=== PATIENT | female | born 1950 | race Caucasian/White ===

== ENCOUNTER 2023-02-13 22:16 | Inpatient (IN) | payer MEDICARE, SELFPAY ==
--- NOTE | ~2023-02-13 | XR_ITS ---
EXAMINATION: PELVIS AND LEFT HIP, LEFT KNEE CLINICAL INFORMATION: Fall with question of fracture COMPARISON: None available. TECHNIQUE: Single view pelvis with 2 additional views left hip, 4 views left knee FINDINGS: The pelvis and hips appear unremarkable. No fractures are seen. Tricompartmental degenerative changes are present in the knee most marked in the medial compartment where there is mild joint space narrowing, some sclerosis and some osteophytes. No joint effusion or fractures. XR/XR knee LT 3V IMPRESSION: No evidence of a traumatic osseous injury. Degenerative changes in the knee.
--- NOTE | ~2023-02-13 | XR_ITS ---
EXAMINATION: PELVIS AND LEFT HIP, LEFT KNEE CLINICAL INFORMATION: Fall with question of fracture COMPARISON: None available. TECHNIQUE: Single view pelvis with 2 additional views left hip, 4 views left knee FINDINGS: The pelvis and hips appear unremarkable. No fractures are seen. Tricompartmental degenerative changes are present in the knee most marked in the medial compartment where there is mild joint space narrowing, some sclerosis and some osteophytes. No joint effusion or fractures. XR/XR hip LT min 2V IMPRESSION: No evidence of a traumatic osseous injury. Degenerative changes in the knee.
--- NOTE | ~2023-02-13 | CT_ITS ---
EXAMINATION: CT HIP WITHOUT CONTRAST, LEFT CLINICAL INFORMATION: Unable to bear weight COMPARISON: Radiographs from 02/13/2023 TECHNIQUE: Multidetector CT imaging of the left hip was performed without the use of intravenous contrast. Coronal and sagittal reformats created on an independent workstation were reviewed. This CT examination was performed using dose optimization techniques as appropriate, variously including the following: *Automated exposure control *Adjustment of mA and/or kV according to patient size (this includes techniques or standardized protocols for targeted exams where dose is matched to indication/reason for exam; i.e. extremities or head) *Use of iterative reconstruction technique DLP: 364 mGy-cm FINDINGS: Acute nondisplaced fracture of the femoral neck evident involving the anterosuperior cortex. The inferior extent of the fracture not clearly evident extending through the inferior aspect of the femoral neck. No additional fractures. Imaged osseous pelvis intact. Imaged viscera are unremarkable with exception of a 2.1 cm left ovarian simple appearing cyst. No follow-up imaging recommended. CT/CT hip LT wo IV con IMPRESSION: Acute nondisplaced, possibly unicortical fracture of the left femoral neck. See wood images.
--- NOTE | ~2023-02-13 | FL_ITS ---
EXAMINATION: XR FLUOROSCOPY WITH IMAGES CLINICAL INFORMATION: Left femoral neck fracture COMPARISON: Previous x-ray 02/13/[address] 02/14/2023 TECHNIQUE: Fluoroscopy Supervised By: Dr. Clif Flores. Fluoroscopy Time: 0.7 minutes. Cumulative Dose: 28 mGy. DAP: 0.5 mGycm2. Images: 2. FINDINGS: Images demonstrate 3 screws transfixing the nondisplaced left femoral neck fracture. FL/FL guidance in OR IMPRESSION: Fluoroscopic guidance for ORIF of left femoral neck fracture.
[2023-02-13 22:24] VITALS: BP 212/82; PULSE 73; RESP 20; TEMP 36.6; O2SAT 97; BMI 33.1
[2023-02-13 22:47] VITALS: BP 101/81; PULSE 73; RESP 17; TEMP 36.6; O2SAT 97
--- NOTE | 2023-02-13 22:56 | MHC.EDTECH ---
pt has a purewick in place
[2023-02-13 23:04] VITALS: BP 172/70; PULSE 73; RESP 18; O2SAT 100
[2023-02-13] MEDS: fentaNYL citrate/PF 100 MCG/2 ML VIAL 50 MCG IVPUSH (23:09)
--- NOTE | 2023-02-13 23:10 | ED.LOWEXIN ---
HPI - Extremity Injury (Lower) General Chief Complaint: Extremity Injury, Lower Stated Complaint: fall Time Seen by Provider: 02/13/23 22:24 Source: patient Limitations: no limitations History of Present Illness HPI Narrative: Patient comes to the emergency room via ambulance from home. Patient lives in elderly housing, patient states that the floor in her kitchen is very slippery, patient slipped, fell likely landing on the left side. Patient did not hit her head or lost consciousness. Patient denies being on blood thinners. Patient states that she has intense left hip pain. Also, complaining of left-sided knee pain. Per EMS, they gave her 100 mcg of fentanyl. Related Data Allergies Allergy/AdvReac Type Severity Reaction Status Date / Time ondansetron Allergy Unknown ANAPHYLAXIS Verified 02/13/23 22:28 [From ZOFRAN ( HYDROCHLORIDE)] Review of Systems Review of Systems: Constitutional : No Weight loss, No Fever, No Chills, No Night Sweats, No Fatigue, No Malaise ENT/Mouth : No Hearing loss, No Ear Pain, No Nasal Congestion, No Sinus Pain, No Hoarseness, No sore throat, No Rhinorrhea, No Swallowing Difficulty Eyes: No Eye Pain, No Swelling, No Redness, No Foreign Body, No Discharge, No Vision Changes Cardiovascular : No Chest Pain, No SOB, No Dyspnea on Exertion, No Orthopnea, No Edema, No Palpitations Respiratory : No Cough, No Sputum, No Wheezing, No Smoke Exposure, No Dyspnea Gastrointestinal : No Nausea, No Vomiting, No Diarrhea, No Constipation, No abdominal Pain, No Hematochezia, No Melena Genitourinary : no irregular bleeding, No Dysuria, No Urinary Frequency, No Hematuria, No Urinary Incontinence, No Urgency, No Flank Pain, No Urinary Flow Changes, No Hesitancy Musculoskeletal : Complaining of left hip pain and left knee pain, No Myalgias, No Joint Swelling Skin : No Skin Lesions, No rash Neuro : No Weakness, No Numbness, No Paresthesias, No Loss of Consciousness, No Dizziness, No Headache Psych : No Anxiety/Panic, No Depression, No SI/HI/AH/VH, No Social Issues, Heme/Lymph: No Bruising, No Bleeding,No Lymphadenopathy Endocrine : No Polyuria, No Polydipsia, No Temperature Intolerance PMFSH Past Medical History Medical History Breast cancer Fibromyalgia Social History Social History Advance Directives: No Advance Directives Information Provided: No Physical Exam Vital Signs: Vital Signs: Last Vital Signs Temp 97.8 F 02/13/23 22:47 Pulse 71 02/14/23 00:49 Resp 16 02/14/23 00:49 BP 178/61 H 02/14/23 00:49 Pulse Ox 97 02/14/23 00:49 O2 Del Method Nasal Cannula 02/14/23 00:49 O2 Flow Rate 3 02/14/23 00:49 BMI result Body Mass Index 33.1 Const: Other: Appearance: Alert. Oriented X3. No acute distress. Eyes: Pupils equal, round and reactive to light. ENT: Pharynx normal. Neck: Normal inspection. Neck supple. No lymph nodes noted. No crepitus CVS: Normal heart rate and rhythm. Pulses normal. Normal S1 and S2 Respiratory: No respiratory distress. Breath sounds normal. No Wheezing. No rales Abdomen: Soft and nontender. No rigidity. No distention. Skin: Skin warm and dry. Normal skin color. Normal skin turgor. Extremities: Patient is unable to flex the hip on the left side, unable to flex the left knee either. Neuro: Oriented X 3. No motor deficit. No sensory deficit. Moving all extremities. No slurred speech. CN 2 through 12 grossly intact Psych: calm, cooperative, normal affect Course Course Course Narrative: -patient is a 50 mcg of fentanyl in the emergency room. Prior to arrival she received 100 mcg per EMS. Now total of 150 mcg. -labs and imaging pending -patient was given 1 dose of Dilaudid, Compazine Medications Administered Discontinued Medications Generic Name Dose Route Start Last Admin Trade Name Jeff PRN Reason Stop Dose Admin Fentanyl 50 mcg 02/13/23 22:56 02/13/23 23:09 Fentanyl Citrate/Pf 100 Mcg/2 Ml Vial IVPUSH 02/13/23 22:57 50 mcg ONCE ONE Administration Protocol Hydromorphone HCl 1 mg 02/14/23 00:08 02/14/23 00:21 Hydromorphone Hcl 1 Mg/Ml Syringe IVPUSH 02/14/23 00:09 1 mg ONCE ONE Administration Protocol Sodium Chloride 1,000 mls @ 999 mls/hr 02/14/23 00:12 02/14/23 00:18 Ns IVCONT 02/14/23 01:12 999 mls/hr .Q1H1M ONE Administration Prochlorperazine Edisylate 10 mg 02/14/23 00:12 02/14/23 00:16 Prochlorperazine Edisylate 10 Mg/2 Ml Vial IVPUSH 02/14/23 00:13 10 mg ONCE ONE Administration Medical Decision Making Medical Decision Making MDM Narrative: -my interpretation of his x-rays, questionable hip fracture -ambulation trial: Patient was able to get out of bed with 2 person assist. Patient was not able to walk due to pain on the left hip. -it is possible that patient may have an occult fracture versus an over stretched the given/muscle. CT scan of the hip/pelvis pending -patient lives alone in elderly housing. Patient cannot walk, patient will stay overnight for PT, case management in the morning -CT scan pending, signed and given to Dr. Mcintosh Lab Data 02/13/23 23:23 02/13/23 23:23 Labs: Lab Results 02/13/23 02/13/23 Range/Units 23:23 23:23 WBC 10.0 (4.8-10.8) X10*3/uL RBC 4.54 (4.20-5.50) X10*6/uL Hgb 13.0 (12.0-16.0) g/dl Hct 38.9 (37.0-47.0) % MCV 85.7 (80.0-98.0) fL MCH 28.6 (27.0-33.0) pg MCHC 33.4 (31.0-35.0) g/dl RDW 14.1 (11.0-16.0) % Plt Count 167 (160-400) X10*3/uL MPV 9.8 (9.4-12.3) fL Immature Gran % (Auto) 0.6 H (0.0-0.4) % Neut % (Auto) 71.7 (45-73) % Lymph % (Auto) 18.8 L (20-40) % Harper % (Auto) 7.0 (2-11) % Eos % (Auto) 1.4 (0-4) % Baso % (Auto) 0.5 (0-2) % Lymph # (Auto) 1.9 (1.2-4.9) X10*3/uL Harper # (Auto) 0.7 (0.1-1.2) X10*3/uL Eos # (Auto) 0.1 (0.0-0.4) X10*3/uL Baso # (Auto) 0.1 (0.0-0.2) X10*3/uL Abs Immat Gran (auto) 0.06 H (0.00-0.03) X10*3/uL Absolute Neuts (auto) 7.1 (2.0-8.3) x10*3/uL Absolute Nucleated RBC 0.000 (0.0-0.012) X10*3/uL Nucleated RBC % (auto) 0.0 (0.0-0.2) /100WBC Sodium 138 (135-145) mmol/L Potassium 4.6 (3.3-5.1) mmol/L Chloride 108 (96-108) mmol/L Carbon Dioxide 23 (22-29) mmol/L Anion Gap 12 (12-20) BUN 26 H (9-16) mg/dL Creatinine 1.02 (0.5-1.4) mg/dL Estim Creat Clear Calc 54.1 Estimated GFR 53 Random Glucose 104 (60-115) mg/dL Calcium 9.0 (8.4-10.2) mg/dL Total Bilirubin 0.2 (0.0-1.0) mg/dL Direct Bilirubin < 0.2 (0.0-0.5) mg/dL AST 20 (5-31) U/L ALT 21 (0-31) U/L Alkaline Phosphatase 81 (39-117) U/L Total Protein 5.2 L (6.5-8.0) g/dL Albumin 3.3 L (3.5-5.0) g/dL Discharge Plan Discharge Clinical Impression: Acute pain of left hip Patient Disposition: Still a Patient
--- NOTE | 2023-02-13 23:11 | ECG_ITS ---
Test Reason : fall Blood Pressure : / mmHG Vent. Rate : 071 BPM Atrial Rate : 071 BPM P-R Int : 194 ms QRS Dur : 084 ms QT Int : 402 ms P-R-T Axes : 039 -05 034 degrees QTc Int : 436 ms Normal sinus rhythm Normal ECG No previous ECGs available Referred By: Lo Mendez Electronically Signed By:José Hogue
[2023-02-13 23:29] LABS: Basophils Absolute Auto 0.1 X10*3/uL (0.0-0.2); Basophils Percent Auto 0.5 % (0-2); Eosinophils Absolute Auto 0.1 X10*3/uL (0.0-0.4); Eosinophils Percent Auto 1.4 % (0-4); Hematocrit 38.9 % (37.0-47.0); Imm Gran Abs Auto 0.06 X10*3/uL (0.00-0.03); Imm Gran Pct Auto 0.6 % (0.0-0.4); Lymphocytes Absolute Auto 1.9 X10*3/uL (1.2-4.9); Lymphocytes Percent Auto 18.8 % (20-40); MANUAL DIFF FLAG NO; Mean Corpuscular HGB Conc 33.4 g/dl (31.0-35.0); Mean Corpuscular Hemoglobin 28.6 pg (27.0-33.0); Mean Corpuscular Volume 85.7 fL (80.0-98.0); Mean Platelet Volume 9.8 fL (9.4-12.3); Monocytes Absolute Auto 0.7 X10*3/uL (0.1-1.2); Neutrophils Absolute Auto 7.1 x10*3/uL (2.0-8.3); Neutrophils Percent Auto 71.7 % (45-73); Platelet Count 167 X10*3/uL (160-400); Red Blood Count 4.54 X10*6/uL (4.20-5.50); Red Cell Distribution Width 14.1 % (11.0-16.0)
[2023-02-13 23:56] LABS: Alanine Aminotransferase 21 U/L (0-31); Albumin Level 3.3 g/dL (3.5-5.0); Alkaline Phosphatase 81 U/L (39-117); Anion Gap 12 (12-20); Aspartate Amino Transferase 20 U/L (5-31); Bilirubin Direct < 0.2 mg/dL (0.0-0.5); Bilirubin Total 0.2 mg/dL (0.0-1.0); Blood Urea Nitrogen 26 mg/dL (9-16); Carbon Dioxide 23 mmol/L (22-29); Chloride 108 mmol/L (96-108); Creatinine Clr Calc Pharmacy 54.1; Estimated Glomerular Filt Rate 53; Glucose Random 104 mg/dL (60-115); Potassium 4.6 mmol/L (3.3-5.1); Sodium 138 mmol/L (135-145); Total Protein 5.2 g/dL (6.5-8.0)
[2023-02-14] VITALS (14 sets, daily range): BP systolic 109–192; BP diastolic 39–90; PULSE 66–87; RESP 14–20; TEMP 36–36.9; O2SAT 93–100
[2023-02-14] MEDS: Prochlorperazine Edisylate 10 MG/2 ML VIAL IVPUSH (00:16)
[2023-02-14] MEDS: 0.9 % Sodium Chloride 1,000 ML 999 ML IVCONT (00:18)
[2023-02-14] MEDS: HYDROmorphone HCl 1 MG/ML SYRINGE IVPUSH (00:21)
--- NOTE | 2023-02-14 01:44 | PC.NURSE ---
Attempted to walk pt in department. Pt able to stand a take a couple steps near bed with pain noted. Place back into bed. Plan for CT and PT/case management in AM.
--- NOTE | 2023-02-14 03:21 | ECG_ITS ---
Test Reason : hip fx, preop Blood Pressure : / mmHG Vent. Rate : 065 BPM Atrial Rate : 065 BPM P-R Int : 174 ms QRS Dur : 082 ms QT Int : 422 ms P-R-T Axes : -08 -09 022 degrees QTc Int : 438 ms Normal sinus rhythm Normal ECG When compared with ECG of 13-FEB-2023 23:24, No significant change was found Referred By: Kennedy Mcintosh Electronically Signed By:José Hogue
--- NOTE | 2023-02-14 03:47 | PM.IMHP ---
History of Present Illness Date of Service: 02/14/23 Chief Complaint: fall, pain 72-year-old female with past medical history of breast cancer, fibromyalgia, presents to the hospital with complaints of mechanical fall in developing severe pain in her hips which prompted her to come to the hospital. Patient reports that she was working in the kitchen, when she fell and hurt her hip, she denies any dizziness, no chest pain, no palpitations, no loss of consciousness, no head injury, reports that once she fell she has severe pain, around her hips, she was complaining of left-sided severe hip pain. She denies any chest pain, no abdominal pain, no urinary symptoms, no lower extremity edema. Initial x-ray of the hip showed no evidence of a traumatic osseous injury, but due to severe pain and inability to move her legs without causing severe pain patient had a CT scan of the hip which showed acute nondisplaced unicortical fracture of the left femoral neck, orthopedic surgery was consulted and patient is scheduled for repair this a.m. Review of Systems Review of Systems: Yes all other systems are reviewed and are negative [facility] Medical History (Updated 02/14/23 @ 06:52 by Brooke Miller MD) Breast cancer Fibromyalgia Hypothyroidism Social History Patient Tobacco Use Status: Never used Tobacco Advance Directives: No Advance Directives Information Provided: No Nutrition Risks: No Nutritional Risk Meds Allergies Allergy/AdvReac Type Severity Reaction Status Date / Time ondansetron Allergy Unknown ANAPHYLAXIS Verified 02/13/23 22:28 [From ZOFRAN ( HYDROCHLORIDE)] Active Medications: Current Medications Acetaminophen (Acetaminophen 325 Mg Tablet) 650 mg PO Q6H PRN PRN Reason: Pain, Mild (Pain Scale 1-3) Docusate Sodium (Docusate Sodium 100 Mg Capsule) 100 mg PO DAILY PRN PRN Reason: Constipation Morphine Sulfate (Morphine Sulfate 4 Mg/Ml Cartridge) 4 mg IVPUSH Q4H PRN; Protocol PRN Reason: Pain, Severe (Pain Scale 7-10) Prochlorperazine Edisylate (Prochlorperazine Edisylate 10 Mg/2 Ml Vial) 5 mg IVPUSH Q4H PRN PRN Reason: Nausea and Vomiting Sodium Chloride (0.9 % Sodium Chloride Flush 3 Ml Syringe) 3 ml IVFLUSH QSHIFT [facility] Home Medications Medication Instructions Recorded Confirmed Last Taken Type Ca 600 mg-D3 20 mcg-mag oxide 50 1 tab PO DAILY 02/14/23 02/14/23 Unknown History zr-Tc-epmzyy-manganese-boron tablet (Calcium 600-D3 Plus (mag-zinc)) aspirin 81 mg tablet 81 mg PO DAILY 02/14/23 02/14/23 Unknown History bupropion HCl 300 mg 24 hr tablet, 300 mg PO DAILY 02/14/23 02/14/23 Unknown History extended release clonazepam 0.5 mg tablet 0.5 mg PO TID PRN Anxiety 02/14/23 02/14/23 Unknown History docusate sodium 50 mg capsule 50 mg PO DAILY 02/14/23 02/14/23 Unknown History ergocalciferol (vitamin D2) 1,250 1,250 mcg PO QMONTH 02/14/23 02/14/23 Unknown History mcg (50,000 unit) capsule esomeprazole magnesium 40 mg 40 mg PO DAILY 02/14/23 02/14/23 Unknown History capsule,delayed release (Nexium) levothyroxine 112 mcg tablet 112 mcg PO DAILY 02/14/23 02/14/23 Unknown History magnesium 100 mg capsule 100 mg PO DAILY 02/14/23 02/14/23 Unknown History mirabegron 50 mg tablet,extended 50 mg PO DAILY 02/14/23 02/14/23 Unknown History release 24 hr (Myrbetriq) psyllium husk 0.4 gram capsule 0.4 g PO DAILY 02/14/23 02/14/23 Unknown History (Metamucil) raloxifene 60 mg tablet 60 mg PO DAILY 02/14/23 02/14/23 Unknown History trazodone 100 mg tablet 100 mg PO BEDTIME 02/14/23 02/14/23 Unknown History Physical Exam Vital Signs and Narrative: Vital Signs: Last Vital Signs Temp 97.4 F 02/14/23 02:14 Pulse 87 02/14/23 02:14 Resp 16 02/14/23 02:14 BP 162/51 H 02/14/23 02:14 Pulse Ox 97 02/14/23 02:14 O2 Del Method Room Air 02/14/23 02:14 O2 Flow Rate 3 02/14/23 00:49 BMI result Body Mass Index 33.1 Const: General: cooperative and no acute distress Orientation/consciousness: patient oriented x3 Eyes: General: appearance normal, both eyes and all related structures Resp: Effort & Inspection: normal respiratory effort Auscultation: clear to auscultation bilaterally Cardio: Rate: regular rate Rhythm: regular rhythm GI: Palpation (GI): Soft to palpation Auscultation: normal bowel sounds Skin: General skin exam: no rashes or lesions noted Neuro: General: patient oriented x3 Cognition (Neuro): normal cognition Extrem: Other: limited range of motion, inability to flex hip or any of the left side General: Yes normal to inspection and Yes no pedal edema Results Labs 02/13/23 23:23 02/13/23 23:23 Labs: Laboratory Results - last 24 hr 02/13/23 02/13/23 23:23 23:23 MCV 85.7 MCH 28.6 MCHC 33.4 RDW 14.1 Plt Count 167 MPV 9.8 Immature Gran % (Auto) 0.6 H Neut % (Auto) 71.7 Lymph % (Auto) 18.8 L [place] % (Auto) 7.0 Eos % (Auto) 1.4 Baso % (Auto) 0.5 Lymph # (Auto) 1.9 [place] # (Auto) 0.7 Eos # (Auto) 0.1 Baso # (Auto) 0.1 Abs Immat Gran (auto) 0.06 H Absolute Neuts (auto) 7.1 Absolute Nucleated RBC 0.000 Nucleated RBC % (auto) 0.0 Anion Gap 12 Estim Creat Clear Calc 54.1 Estimated GFR 53 Random Glucose 104 Calcium 9.0 Total Bilirubin 0.2 Direct Bilirubin < 0.2 AST 20 ALT 21 Alkaline Phosphatase 81 Total Protein 5.2 L Albumin 3.3 L Imaging Radiologist's Impressions: Impressions Hip X-Ray 02/14/23 00:00 IMPRESSION: No evidence of a traumatic osseous injury. Degenerative changes in the knee. Knee X-Ray 02/14/23 00:00 IMPRESSION: No evidence of a traumatic osseous injury. Degenerative changes in the knee. Hip CT 02/14/23 01:50 IMPRESSION: Acute nondisplaced, possibly unicortical fracture of the left femoral neck. See wood images. Assessment and Plan (1) Closed fracture of neck of left femur: Qualifiers: Encounter type: initial encounter Qualified Code(s): S72.002A - Fracture of unspecified part of neck of left femur, initial encounter for closed fracture Status: Acute Plan 72-year-old female with past medical history of fibromyalgia, history of hypothyroidism, comes into the hospital with complaints of a fall found to have hip fracture # closed fracture of neck of left femur - plan for repair this afternoon after mechanical fall - pain control - PT OT after surgery # history of fibromyalgia - continue bupropion # hypothyroidism - continue levothyroxine DVT prophylaxis: SCD in anticipation of surgical intervention given patient's need for surgical repair hip fracture patient will require a minimum 2 nights inpatient hospital stay for further management and monitoring Time Spent With Patient Time: Total time managing care of this patient today ____ minutes. Quality Stroke Does the patient have a stroke diagnosis?: No VTE Prior VTE?: No VTE Risk Level:: Surgical - very high VTE Device Contraindication: N/A - Device Ordered VTE Drug Contraindication: Treatment Not Indicated
[2023-02-14 03:57] LABS: Appearance Urine Cloudy; Color Urine Yellow; Glucose Urine UA Negative (Negative); Leukocyte Esterase Urine Negative (Negative); Nitrite Urine Negative (Negative); PH 7.5 (5.0-9.0); Specific Gravity - Urine 1.015 (1.005-1.025); Urine Blood Negative (Negative); Urine Ketones Negative (Negative); Urine Protein Negative (Neg-Trace)
[2023-02-14 04:01] LABS: INTERNATIONAL NORM RATIO 0.9 (0.9-1.1); Prothrombin Time 10.4 SEC (10.0-13.1)
[2023-02-14 04:03] LABS: Partial Thromboplastin Time 26.5 SEC (26.0-36.4)
[2023-02-14 04:16] LABS: Alanine Aminotransferase 247 U/L (0-31); Albumin Level 3.3 g/dL (3.5-5.0); Alkaline Phosphatase 95 U/L (39-117); Anion Gap 12 (12-20); Aspartate Amino Transferase 435 U/L (5-31); Bilirubin Total 0.8 mg/dL (0.0-1.0); Blood Urea Nitrogen 24 mg/dL (9-16); Calcium 8.7 mg/dL (8.4-10.2); Carbon Dioxide 22 mmol/L (22-29); Chloride 109 mmol/L (96-108); Creatinine Clr Calc Pharmacy 54.1; Estimated Glomerular Filt Rate 53; Glucose Random 128 mg/dL (60-115); Potassium 4.5 mmol/L (3.3-5.1); Sodium 138 mmol/L (135-145); Total Protein 5.2 g/dL (6.5-8.0)
--- NOTE | 2023-02-14 05:41 | MHC.EDTECH ---
canister was replaced her output of urine was 500cc
--- NOTE | 2023-02-14 07:28 | PHA.MEDREC ---
Pharmacy Consult ? Medication Reconciliation Pharmacy has reviewed the medication reconciliation completed by Radha. There are no remarkable issue for provider's attention. Anika Thomas, AbhilashD
[2023-02-14] MEDS: Prochlorperazine Edisylate 10 MG/2 ML VIAL 5 MG IVPUSH ×2 (09:07→17:35)
[2023-02-14] MEDS: 0.9 % Sodium Chloride Flush 3 ML SYRINGE IVFLUSH ×3 (09:08→20:49)
--- NOTE | 2023-02-14 12:21 | PC.NURSE ---
nurse to nurse report to S3 Gauri FERNANDO
--- NOTE | 2023-02-14 12:31 | MHC.CM.PN ---
Met with patient and daughter, Hector. Patient lives alone. Currently does not have a PCP. Patient had a PCP but didn't get care for that provider. Still trying to find a PCP. HCP completed, signed and witnessed. Original given to patient. Copy placed in chart. IMM explained and signed. Patient aware she will be going to the OR later today. Patient and family anticipate rehab will be needed. Acute rehab is patient and family's preference with [facility] being 1st choice. Referral made to all 3 local acute rehabs. Continue to monitor for d/c needs.
--- NOTE | 2023-02-14 12:53 | PM.CNOR ---
History of Present Illness HPI Consult date: 02/14/23 <Tawanna Goyal PA-C - Last Filed: 02/14/23 14:39> Chief complaint: hip fx <Tawanna Goyal PA-C Last Filed: 02/14/23 14:39> Narrative: 72-year-old female with past medical history of breast cancer, fibromyalgia, presents to the hospital with complaints? of Left hip pain after falling at home. Patient reports that she was working in the kitchen and she slipped, causing her legs to spread out and she fell, landing on her left side. She was transported to the ED for further evaluation. Initial x-ray of the hip showed no evidence of a traumatic osseous injury,? but due to severe pain and inability to move her legs without causing severe pain patient had a CT scan of the hip which showed acute nondisplaced unicortical fracture of the left femoral neck Orthopedics was consulted for further recommendations <Tawanna Goyal PA-C Last Filed: 02/14/23 14:39> Review of Systems Review of Systems: per hpi <Tawanna Goyal PA-C Last Filed: 02/14/23 14:39> PMFSH Past Medical History Medical History: Medical History (Updated 02/14/23 @ 06:52 by Brooke Miller MD) Breast cancer Fibromyalgia Hypothyroidism <Tawanna Goyal PA-C Last Filed: 02/14/23 14:39> Social History Social History: Social History Household Members: None Housing Other:: alf Patient Tobacco Use Status: Never used Tobacco service: No Current occupational status: retired <Tawanna Goyal PA-C Last Filed: 02/14/23 14:39> Meds Allergies/Adverse reactions: Allergies Allergy/AdvReac Type Severity Reaction Status Date / Time ondansetron Allergy Unknown ANAPHYLAXIS Verified 02/13/23 22:28 [From ZOFRAN ( HYDROCHLORIDE)] <Tawanna Goyal PA-C Last Filed: 02/14/23 14:39> Active Medications: Current Medications Acetaminophen (Acetaminophen 325 Mg Tablet) 650 mg PO Q6H PRN PRN Reason: Pain, Mild (Pain Scale 1-3) Clonazepam (Clonazepam 0.5 Mg Tablet) 0.5 mg PO TID PRN PRN Reason: Anxiety Docusate Sodium (Docusate Sodium 100 Mg Capsule) 100 mg PO DAILY PRN PRN Reason: Constipation Levothyroxine Sodium (Levothyroxine Sodium 112 Mcg Tablet) 112 mcg PO DAILY [facility] Last Admin: 02/14/23 09:08 Dose: Not Given Morphine Sulfate (Morphine Sulfate 4 Mg/Ml Cartridge) 4 mg IVPUSH Q4H PRN; Protocol PRN Reason: Pain, Severe (Pain Scale 7-10) Prochlorperazine Edisylate (Prochlorperazine Edisylate 10 Mg/2 Ml Vial) 5 mg IVPUSH Q4H PRN PRN Reason: Nausea and Vomiting Last Admin: 02/14/23 09:07 Dose: 5 mg Sodium Chloride (0.9 % Sodium Chloride Flush 3 Ml Syringe) 3 ml IVFLUSH QSHIFT [facility] Last Admin: 02/14/23 09:08 Dose: 3 ml Trazodone HCl (Trazodone Hcl 100 Mg Tablet) 100 mg PO BEDTIME [facility] <Tawanna Goyal PA-C - Last Filed: 02/14/23 14:39> Home medications: Home Medications Medication Instructions Recorded Confirmed Last Taken Type Ca 600 mg-D3 20 mcg-mag oxide 50 1 tab PO DAILY 02/14/23 02/14/23 Unknown History zl-Wo-secqqr-manganese-boron tablet (Calcium 600-D3 Plus (mag-zinc)) aspirin 81 mg tablet 81 mg PO DAILY 02/14/23 02/14/23 Unknown History bupropion HCl 300 mg 24 hr tablet, 300 mg PO DAILY 02/14/23 02/14/23 Unknown History extended release clonazepam 0.5 mg tablet 0.5 mg PO TID PRN Anxiety 02/14/23 02/14/23 Unknown History docusate sodium 50 mg capsule 50 mg PO DAILY 02/14/23 02/14/23 Unknown History ergocalciferol (vitamin D2) 1,250 1,250 mcg PO QMONTH 02/14/23 02/14/23 Unknown History mcg (50,000 unit) capsule esomeprazole magnesium 40 mg 40 mg PO DAILY 02/14/23 02/14/23 Unknown History capsule,delayed release (Nexium) levothyroxine 112 mcg tablet 112 mcg PO DAILY 02/14/23 02/14/23 Unknown History magnesium 100 mg capsule 100 mg PO DAILY 02/14/23 02/14/23 Unknown History mirabegron 50 mg tablet,extended 50 mg PO DAILY 02/14/23 02/14/23 Unknown History release 24 hr (Myrbetriq) psyllium husk 0.4 gram capsule 0.4 g PO DAILY 02/14/23 02/14/23 Unknown History (Metamucil) raloxifene 60 mg tablet 60 mg PO DAILY 02/14/23 02/14/23 Unknown History trazodone 100 mg tablet 100 mg PO BEDTIME 02/14/23 02/14/23 Unknown History <Tawanna Goyal PA-C Last Filed: 02/14/23 14:39> Physical Exam Vital Signs: Vital Signs: Last Vital Signs Temp 98.4 F 02/14/23 09:38 Pulse 71 02/14/23 09:38 Resp 16 02/14/23 09:38 BP 154/90 H 02/14/23 09:38 Pulse Ox 97 02/14/23 09:38 O2 Del Method Room Air 02/14/23 09:38 O2 Flow Rate 3 02/14/23 03:21 BMI result Body Mass Index 33.1 <Tawanna Goyal PA-C Last Filed: 02/14/23 14:39> Const: General: cooperative and no acute distress <Tawanna Goyal PA-C Last Filed: 02/14/23 14:39> Orientation/consciousness: patient oriented x3 <Tawanna Goyal PA-C Last Filed: 02/14/23 14:39> Resp: Effort & Inspection: normal respiratory effort and able to speak in complete sentences <Tawanna Goyal PA-C Last Filed: 02/14/23 14:39> Cardio: Peripheral pulses: Peripheral pulses 2+ throughout <Tawanna Goyal PA-C Last Filed: 02/14/23 14:39> Neuro: General: patient oriented x3 <Tawanna Goyal PA-C Last Filed: 02/14/23 14:39> Extrem: Other: Left hip skin intact, Pain with log roll and initiations of SLR. NVI. <Tawanna Goyal PA-C - Last Filed: 02/14/23 14:39> Other: Left hip skin intact, Pain with log roll and initiations of SLR. NVI. She can actively dorsiflex and plantar flex her foot and wiggle her toes. Radiographs: AP pelvis and two views of the left hip were reviewed by me today. The lateral view shows a possible nondisplaced femoral neck fracture. CT scan of the left hip and the radiology report were reviewed by me today. It appears to show a nondisplaced left femoral neck fracture, unicortical. <Kathrin Funes MD - Last Filed: 02/14/23 18:28> Results Labs Result Diagrams: 02/13/23 23:02/14/23 03:38 <Tawanna Goyal PA-C - Last Filed: 02/14/23 14:39> Labs: Abnormal lab results 02/13/23 02/13/23 02/14/23 Range/Units 23:23 23:23 03:38 Immature Gran % (Auto) 0.6 H (0.0-0.4) % Lymph % (Auto) 18.8 L (20-40) % Abs Immat Gran (auto) 0.06 H (0.00-0.03) X10*3/uL Chloride 109 H (96-108) mmol/L BUN 26 H 24 H (9-16) mg/dL Random Glucose 128 H (60-115) mg/dL AST 435 H (5-31) U/L ALT 247 H (0-31) U/L Total Protein 5.2 L 5.2 L (6.5-8.0) g/dL Albumin 3.3 L 3.3 L (3.5-5.0) g/dL H & H 02/13/23 Range/Units 23:23 Hgb 13.0 (12.0-16.0) g/dl Hct 38.9 (37.0-47.0) % Coagulation 02/14/23 Range/Units 03:38 INR 0.9 (0.9-1.1) All other labs normal. <Tawanna Goyal PA-C - Last Filed: 02/14/23 14:39> Assessment and Plan (1) Closed fracture of neck of left femur: Qualifiers: Encounter type: initial encounter Qualified Code(s): S72.002A - Fracture of unspecified part of neck of left femur, initial encounter for closed fracture <Tawanna Goyal PA-C - Last Filed: 02/14/23 14:39> Status: Acute <Tawanna Goyal PA-C - Last Filed: 02/14/23 14:39> I explained the extent of the injury to the patient and options available which include surgical intervention. I explained the procedure in detail along with the length of recovery and rehab course. I explained the risk, benefits and alternatives. Risk including, but not limited to infection, blood clots, bleeding, non union or malunion and nerve/tissue damage to surrounding areas. I answered all their questions and with their understanding they have consented to move forward with Operative Fixation of the left femur . The patient will be T&S, med clearance obtained and NPO after midnight. Will discuss with Dr Funes to determine further surgical planning. <Tawanna Goyal PA-C - Last Filed: 02/14/23 14:39> I explained the extent of the injury to the patient and options available which include surgical intervention. I explained the procedure in detail along with the length of recovery and rehab course. I explained the risk, benefits and alternatives. Risk including, but not limited to infection, blood clots, bleeding, non union or malunion and nerve/tissue damage to surrounding areas. I answered all their questions and with their understanding they have consented to move forward with Operative Fixation of the left femur . The patient will be T&S, med clearance obtained and NPO after midnight. Will discuss with Dr Funes to determine further surgical planning. The patient was seen and evaluated by me today. And I educated her about this condition. This was also discussed with Dr. Flores. The plan is to take her to the operating room tomorrow, likely for percutaneous pinning of her nondisplaced femoral neck fracture. <Kathrin Funes MD - Last Filed: 02/14/23 18:28> Time Spent With Patient Time: Total time managing care of this patient today ____ minutes. <Tawanna Goyal PA-C - Last Filed: 02/14/23 14:39> Procedures Date of Service Date of Service: 02/14/23 <Tawanna Goyal PA-C - Last Filed: 02/14/23 14:39> 02/14/23 <Kathrin Funes MD - Last Filed: 02/14/23 18:28>
[2023-02-14] MEDS: amLODIPine Besylate 5 MG TABLET PO (15:17)
[2023-02-14] MEDS: Morphine Sulfate 4 MG/ML CARTRIDGE IVPUSH (17:36)
[2023-02-14] MEDS: traZODone HCL 100 MG TABLET PO (20:49)
[2023-02-15] VITALS (23 sets, daily range): BP systolic 137–194; BP diastolic 52–84; PULSE 61–85; RESP 11–20; TEMP 36–37; O2SAT 94–100
[2023-02-15 06:56] LABS: Hematocrit 39.7 % (37.0-47.0); Hemoglobin 12.6 g/dl (12.0-16.0); Mean Corpuscular HGB Conc 31.7 g/dl (31.0-35.0); Mean Corpuscular Hemoglobin 27.8 pg (27.0-33.0); Mean Corpuscular Volume 87.4 fL (80.0-98.0); Mean Platelet Volume 9.9 fL (9.4-12.3); Platelet Count 149 X10*3/uL (160-400); Red Blood Count 4.54 X10*6/uL (4.20-5.50); Red Cell Distribution Width 14.5 % (11.0-16.0); White Blood Count 7.2 X10*3/uL (4.8-10.8)
[2023-02-15 07:06] LABS: Anion Gap 11 (12-20); Blood Urea Nitrogen 15 mg/dL (9-16); Calcium 9.2 mg/dL (8.4-10.2); Carbon Dioxide 20 mmol/L (22-29); Chloride 114 mmol/L (96-108); Creatinine Clr Calc Pharmacy 61.3; Estimated Glomerular Filt Rate > 60; Glucose Random 99 mg/dL (60-115); Sodium 140 mmol/L (135-145)
[2023-02-15] MEDS: Levothyroxine Sodium 112 MCG TABLET PO (09:26)
[2023-02-15] MEDS: 0.9 % Sodium Chloride Flush 3 ML SYRINGE IVFLUSH ×2 (09:29→20:23)
--- NOTE | 2023-02-15 10:26 | P.CONAN_ITS ---
HPI - Anesthesia Eval Consult details Narrative: for hip pinning PMFSH Active Problems Active Problems: All Active Problems (Updated 02/15/23 @ 10:06 by Charmaine Guerrero RN) Acute pain of left hip (Acute) Closed fracture of neck of left femur (Acute) Past Medical History Medical History (Updated 02/15/23 @ 10:06 by Charmaine Guerrero RN) Breast cancer Fibromyalgia Glaucoma History of kidney disease History of sepsis Hypothyroidism Sleep apnea Family History Family history of problems with anesthesia: No Surgical History Surgical History (Updated 02/15/23 @ 10:06 by Charmaine Guerrero RN) History of cholecystectomy History of Problems with Anesthesia: Yes Social History Social History Household Members: None Housing Other:: custodial Patient Tobacco Use Status: Never used Tobacco service: No Current occupational status: retired [employer] Allergies Allergy/AdvReac Type Severity Reaction Status Date / Time ondansetron Allergy Unknown ANAPHYLAXIS Verified 02/13/23 22:28 [From ZOFRAN ( HYDROCHLORIDE)] Active Medications: Current Medications Acetaminophen (Acetaminophen 325 Mg Tablet) 650 mg PO Q6H PRN PRN Reason: Pain, Mild (Pain Scale 1-3) Clonazepam (Clonazepam 0.5 Mg Tablet) 0.5 mg PO TID PRN PRN Reason: Anxiety Docusate Sodium (Docusate Sodium 100 Mg Capsule) 100 mg PO DAILY PRN PRN Reason: Constipation Levothyroxine Sodium (Levothyroxine Sodium 112 Mcg Tablet) 112 mcg PO DAILY [facility] Last Admin: 02/15/23 09:26 Dose: 112 mcg Morphine Sulfate (Morphine Sulfate 4 Mg/Ml Cartridge) 4 mg IVPUSH Q4H PRN; Protocol PRN Reason: Pain, Severe (Pain Scale 7-10) Last Admin: 02/14/23 17:36 Dose: 4 mg Prochlorperazine Edisylate (Prochlorperazine Edisylate 10 Mg/2 Ml Vial) 5 mg IVPUSH Q4H PRN PRN Reason: Nausea and Vomiting Last Admin: 02/14/23 17:35 Dose: 5 mg Sodium Chloride (0.9 % Sodium Chloride Flush 3 Ml Syringe) 3 ml IVFLUSH QSHIFT [facility] Last Admin: 02/15/23 09:29 Dose: 3 ml Trazodone HCl (Trazodone Hcl 100 Mg Tablet) 100 mg PO BEDTIME [facility] Last Admin: 02/14/23 20:49 Dose: 100 mg Home Medications Medication Instructions Recorded Confirmed Last Taken Type Ca 600 mg-D3 20 mcg-mag oxide 50 1 tab PO DAILY 02/14/23 02/14/23 Unknown History go-Xx-oxdjvx-manganese-boron tablet (Calcium 600-D3 Plus (mag-zinc)) aspirin 81 mg tablet 81 mg PO DAILY 02/14/23 02/14/23 Unknown History bupropion HCl 300 mg 24 hr tablet, 300 mg PO DAILY 02/14/23 02/14/23 Unknown History extended release clonazepam 0.5 mg tablet 0.5 mg PO TID PRN Anxiety 02/14/23 02/14/23 Unknown History docusate sodium 50 mg capsule 50 mg PO DAILY 02/14/23 02/14/23 Unknown History ergocalciferol (vitamin D2) 1,250 1,250 mcg PO QMONTH 02/14/23 02/14/23 Unknown History mcg (50,000 unit) capsule esomeprazole magnesium 40 mg 40 mg PO DAILY 02/14/23 02/14/23 Unknown History capsule,delayed release (Nexium) levothyroxine 112 mcg tablet 112 mcg PO DAILY 02/14/23 02/14/23 Unknown History magnesium 100 mg capsule 100 mg PO DAILY 02/14/23 02/14/23 Unknown History mirabegron 50 mg tablet,extended 50 mg PO DAILY 02/14/23 02/14/23 Unknown History release 24 hr (Myrbetriq) psyllium husk 0.4 gram capsule 0.4 g PO DAILY 02/14/23 02/14/23 Unknown History (Metamucil) raloxifene 60 mg tablet 60 mg PO DAILY 02/14/23 02/14/23 Unknown History trazodone 100 mg tablet 100 mg PO BEDTIME 02/14/23 02/14/23 Unknown History Exam Exam Date and Time: February 15, 2023 1026 Height,Weight and Vital Signs: Height 5 ft 5.5 in Weight 91.5 kg Last Vital Signs Temp 98.0 F 02/15/23 10:15 Pulse 75 02/15/23 10:15 Resp 16 02/15/23 10:15 BP 176/72 H 02/15/23 10:15 Pulse Ox 96 02/15/23 10:15 O2 Del Method Room Air 02/15/23 10:15 O2 Flow Rate 3 02/14/23 03:21 Pertinent Lab Results Pertinent Lab Results: Laboratory Tests 02/13/23 02/13/23 02/14/23 23:23 23:23 03:38 WBC 10.0 RBC 4.54 Hgb 13.0 Hct 38.9 MCV 85.7 MCH 28.6 MCHC 33.4 RDW 14.1 Plt Count 167 MPV 9.8 Immature Gran % (Auto) 0.6 H Neut % (Auto) 71.7 Lymph % (Auto) 18.8 L [place] % (Auto) 7.0 Eos % (Auto) 1.4 Baso % (Auto) 0.5 Lymph # (Auto) 1.9 [place] # (Auto) 0.7 Eos # (Auto) 0.1 Baso # (Auto) 0.1 Abs Immat Gran (auto) 0.06 H Absolute Neuts (auto) 7.1 Absolute Nucleated RBC 0.000 Nucleated RBC % (auto) 0.0 PT 10.4 INR 0.9 APTT 26.5 Sodium 138 Potassium 4.6 Chloride 108 Carbon Dioxide 23 Anion Gap 12 BUN 26 H Creatinine 1.02 Estim Creat Clear Calc 54.1 Estimated GFR 53 Random Glucose 104 Calcium 9.0 Total Bilirubin 0.2 Direct Bilirubin < 0.2 AST 20 ALT 21 Alkaline Phosphatase 81 Total Protein 5.2 L Albumin 3.3 L Urine Color Urine Appearance Urine pH Ur Specific [place] Urine Protein Urine Glucose (UA) Urine Ketones Urine Blood Urine Nitrite Ur Leukocyte Esterase Blood Type Antibody Screen 02/14/23 02/14/23 02/14/23 03:38 03:38 03:45 WBC RBC Hgb Hct MCV MCH MCHC RDW Plt Count MPV Immature Gran % (Auto) Neut % (Auto) Lymph % (Auto) [place] % (Auto) Eos % (Auto) Baso % (Auto) Lymph # (Auto) [place] # (Auto) Eos # (Auto) Baso # (Auto) Abs Immat Gran (auto) Absolute Neuts (auto) Absolute Nucleated RBC Nucleated RBC % (auto) PT INR APTT Sodium 138 Potassium 4.5 Chloride 109 H Carbon Dioxide 22 Anion Gap 12 BUN 24 H Creatinine 1.02 Estim Creat Clear Calc 54.1 Estimated GFR 53 Random Glucose 128 H Calcium 8.7 Total Bilirubin 0.8 Direct Bilirubin AST 435 H ALT 247 H Alkaline Phosphatase 95 Total Protein 5.2 L Albumin 3.3 L Urine Color Yellow Urine Appearance Cloudy Urine pH 7.5 Ur Specific [place] 1.015 Urine Protein Negative Urine Glucose (UA) Negative Urine Ketones Negative Urine Blood Negative Urine Nitrite Negative Ur Leukocyte Esterase Negative Blood Type A Positive Antibody Screen NEGATIVE 02/15/23 02/15/23 06:12 06:12 WBC 7.2 RBC 4.54 Hgb 12.6 Hct 39.7 MCV 87.4 MCH 27.8 MCHC 31.7 RDW 14.5 Plt Count 149 L MPV 9.9 Immature Gran % (Auto) Neut % (Auto) Lymph % (Auto) [place] % (Auto) Eos % (Auto) Baso % (Auto) Lymph # (Auto) [place] # (Auto) Eos # (Auto) Baso # (Auto) Abs Immat Gran (auto) Absolute Neuts (auto) Absolute Nucleated RBC 0.000 Nucleated RBC % (auto) 0.0 PT INR APTT Sodium 140 Potassium 5.0 Chloride 114 H Carbon Dioxide 20 L Anion Gap 11 L BUN 15 Creatinine 0.90 Estim Creat Clear Calc 61.3 Estimated GFR > 60 Random Glucose 99 Calcium 9.2 Total Bilirubin Direct Bilirubin AST ALT Alkaline Phosphatase Total Protein Albumin Urine Color Urine Appearance Urine pH Ur Specific [place] Urine Protein Urine Glucose (UA) Urine Ketones Urine Blood Urine Nitrite Ur Leukocyte Esterase Blood Type Antibody Screen Airway Mallampati Class: III TM Dist: <=3cm Neck ROM: Full Heart: rrr Lungs: cta Assessment and Plan Assessment Anesthesia Assessment: Anesthesia Plan Discussed and Chart Reviewed Final Anesthetic Review Family History of Problems with Anesthesia: No History of Problems with Anesthesia: Yes NPO: Yes ASA Class: II Final Preanesthetic Review: No Changes in Pt Med Stat, Meds/Allgs Chart Reviewed and Consent Obtained/Reviewed Patient Risk: Intermediate Procedure Risk: Intermediate Anesthetic Plan Anesthetic Plan: GA Disposition: Standard PACU
[2023-02-15] MEDS: Scopolamine 1.5 MG PATCH.TD.3 TRANSDERMA (10:37)
--- NOTE | 2023-02-15 11:32 | P.BOP_ITS ---
Brief Operative Note Date of Service: 02/15/23 Pre-op diagnosis: Left femoral neck fracture Post-op diagnosis: same Procedure: CRPP left hip Implants: [place] 6.5 partially threaded cancellous screws x 3 Surgeon: Clif Flores MD Anesthesia: GETA and local Was an Electrical Engineering Manager used for this Procedure?: No Estimated blood loss (mL): 20 IV fluids (mL): 500 Pathology: other Condition: stable Disposition: PACU
--- NOTE | 2023-02-15 11:34 | MHC.SHP ---
Pre-Procedural Eval Section A Date of Service: 02/15/23 The patient is an INPATIENT: Yes Changes since office visit: No Cold of Flu in the past 2 weeks, No New Medical Problems, No Changes in Medication and No Patient answered all questions The History & Physical has been completed within 30 days and I have reviewed it.: Yes Section B Chief Complaint: hip fx Allergies: Allergies Allergy/AdvReac Type Severity Reaction Status Date / Time ondansetron Allergy Unknown ANAPHYLAXIS Verified 02/13/23 22:28 [From ZOFRAN ( HYDROCHLORIDE)] Plan I have reviewed the history and physical and performed a pertinent physical examination on my patient. No changes have occurred unless specified. Time Spent With Patient Time: Total time managing care of this patient today ____ minutes.
--- NOTE | 2023-02-15 11:43 | P.PNIM_ITS ---
Subjective Subjective Date of Service: 02/15/23 Interval History: Seen and evaluated less pain waiting surgery no overnight events Review of Systems Review of Systems: Yes all other systems are reviewed and are negative Physical Exam Vital Signs: Vital Signs: Last Vital Signs Temp 98.0 F 02/15/23 10:15 Pulse 75 02/15/23 10:15 Resp 16 02/15/23 10:15 BP 176/72 H 02/15/23 10:15 Pulse Ox 96 02/15/23 10:15 O2 Del Method Room Air 02/15/23 10:15 O2 Flow Rate 3 02/14/23 03:21 BMI result Body Mass Index 33.1 Const: Other: Constitutional : Awake, interactive, not in distress Neck : Normal inspection, Supple Cardiovascular : RRR, no JVP, no lower extremity edema Respiratory : good bilateral air entry, no crackles, wheezes or rhonchi Gastrointestinal: soft, lax, Normal bowel sounds, Non tender Skin : Warm, Dry Skeletal: left leg shorter and externally rotated Neurological : Alert & oriented x3, No focal deficit , CN 2-12 within normal Objective Data Active Medications Acetaminophen (Acetaminophen 325 Mg Tablet) 650 mg PO Q6H PRN PRN Reason: Pain, Mild (Pain Scale 1-3) Clonazepam (Clonazepam 0.5 Mg Tablet) 0.5 mg PO TID PRN PRN Reason: Anxiety Docusate Sodium (Docusate Sodium 100 Mg Capsule) 100 mg PO DAILY PRN PRN Reason: Constipation Fentanyl (Fentanyl Citrate/Pf 100 Mcg/2 Ml Vial) 25 mcg IVPUSH Q5M PRN; Protocol PRN Reason: Pain, Moderate(Pain Scale 4-6) Levothyroxine Sodium (Levothyroxine Sodium 112 Mcg Tablet) 112 mcg PO DAILY [facility] Last Admin: 02/15/23 09:26 Dose: 112 mcg Documented By: JOSE CARLOS Morphine Sulfate (Morphine Sulfate 4 Mg/Ml Cartridge) 4 mg IVPUSH Q4H PRN; Protocol PRN Reason: Pain, Severe (Pain Scale 7-10) Last Admin: 02/14/23 17:36 Dose: 4 mg Documented By: SAMARA Prochlorperazine Edisylate (Prochlorperazine Edisylate 10 Mg/2 Ml Vial) 5 mg IVPUSH Q4H PRN PRN Reason: Nausea and Vomiting Last Admin: 02/14/23 17:35 Dose: 5 mg Documented By: SAMARA Sodium Chloride (0.9 % Sodium Chloride Flush 3 Ml Syringe) 3 ml IVFLUSH QSHIFT [facility] Last Admin: 02/15/23 09:29 Dose: 3 ml Documented By: JOSE CARLOS Trazodone HCl (Trazodone Hcl 100 Mg Tablet) 100 mg PO BEDTIME [facility] Last Admin: 02/14/23 20:49 Dose: 100 mg Documented By: ASHOK Labs 02/15/23 06:12 02/15/23 06:12 Labs: Laboratory Results - last 24 hr 02/15/23 02/15/23 06:12 06:12 MCV 87.4 MCH 27.8 MCHC 31.7 RDW 14.5 Plt Count 149 L MPV 9.9 Absolute Nucleated RBC 0.000 Nucleated RBC % (auto) 0.0 Anion Gap 11 L Estim Creat Clear Calc 61.3 Estimated GFR > 60 Random Glucose 99 Calcium 9.2 Assessment and Plan (1) Acute pain of left hip: Status: Acute (2) Closed fracture of neck of left femur: Status: Acute Plan 72-year-old female with past medical history of fibromyalgia, history of hypothyroidism, comes into the hospital with complaints of a fall found to have hip fracture # closed fracture of neck of left femur plan for repair this morning, ortho team following pain control PT OT after surgery # history of fibromyalgia continue bupropion # hypothyroidism continue levothyroxine DVT prophylaxis: SCD given patient's need for surgical repair hip fracture patient will require overnight inpatient hospital stay for further management and monitoring Time Spent With Patient Time: Total time managing care of this patient today ____ minutes. Quality Stroke Does the patient have a stroke diagnosis?: No VTE Prior VTE?: No VTE Risk Level:: Surgical - very high VTE Device Contraindication: N/A - Device Ordered VTE Drug Contraindication: Treatment Not Indicated
--- NOTE | 2023-02-15 12:02 | MHC.CM.PN ---
per rounds pt going to or [facility] for a hip repair pt will need rehab when ready for dc
[2023-02-15] MEDS: fentaNYL citrate/PF 100 MCG/2 ML VIAL 25 MCG IVPUSH ×3 (12:33→12:52)
[2023-02-15] MEDS: Acetaminophen 1,000 MG/100 ML PIGGYBACK 400 MG IV (12:34)
[2023-02-15] MEDS: oxyCODONE HCl Immed Release 5 MG TABLET PO (12:58)
[2023-02-15] MEDS: HYDROmorphone HCl 0.5 MG/0.5 ML SYRINGE 0.25 MG IVPUSH ×2 (12:58→13:05)
[2023-02-15] MEDS: Morphine Sulfate 4 MG/ML CARTRIDGE IVPUSH ×2 (16:10→20:27)
[2023-02-15] MEDS: traZODone HCL 100 MG TABLET PO (20:21)
[2023-02-16] MEDS: Morphine Sulfate 4 MG/ML CARTRIDGE IVPUSH ×2 (01:19→06:11)
[2023-02-16 03:36] VITALS: BP 135/63; PULSE 63; RESP 14; TEMP 36.6; O2SAT 97
[2023-02-16 05:26] LABS: Hematocrit 37.5 % (37.0-47.0); Hemoglobin 12.3 g/dl (12.0-16.0); Mean Corpuscular HGB Conc 32.8 g/dl (31.0-35.0); Mean Corpuscular Hemoglobin 28.3 pg (27.0-33.0); Mean Corpuscular Volume 86.4 fL (80.0-98.0); Mean Platelet Volume 10.1 fL (9.4-12.3); Platelet Count 141 X10*3/uL (160-400); Red Blood Count 4.34 X10*6/uL (4.20-5.50); Red Cell Distribution Width 14.6 % (11.0-16.0); White Blood Count 10.4 X10*3/uL (4.8-10.8)
[2023-02-16 05:42] LABS: Anion Gap 8 (12-20); Blood Urea Nitrogen 20 mg/dL (9-16); Carbon Dioxide 25 mmol/L (22-29); Chloride 109 mmol/L (96-108); Creatinine Clr Calc Pharmacy 55.7; Estimated Glomerular Filt Rate 55; Glucose Random 120 mg/dL (60-115); Potassium 4.7 mmol/L (3.3-5.1); Sodium 137 mmol/L (135-145)
[2023-02-16 07:28] VITALS: BP 139/62; PULSE 63; RESP 18; TEMP 36.3; O2SAT 97
[2023-02-16] MEDS: Levothyroxine Sodium 112 MCG TABLET PO (07:31)
[2023-02-16] MEDS: 0.9 % Sodium Chloride Flush 3 ML SYRINGE IVFLUSH ×3 (07:31→20:07)
--- NOTE | 2023-02-16 09:49 | P.PNIM_ITS ---
Subjective Subjective Date of Service: 02/16/23 Interval History: Seen and evaluated pain under fair control no overnight events POD 1 Review of Systems Review of Systems: Yes all other systems are reviewed and are negative Physical Exam Vital Signs: Vital Signs: Last Vital Signs Temp 97.3 F 02/16/23 07:28 Pulse 63 02/16/23 07:28 Resp 18 02/16/23 07:28 BP 139/62 02/16/23 07:28 Pulse Ox 97 02/16/23 07:28 O2 Del Method Room Air 02/16/23 07:28 O2 Flow Rate 2 02/15/23 14:00 BMI result Body Mass Index 33.1 Const: Other: Constitutional : Awake, interactive, not in distress Neck : Normal inspection, Supple Cardiovascular : RRR, no JVP, no lower extremity edema Respiratory : good bilateral air entry, no crackles, wheezes or rhonchi Gastrointestinal: soft, lax, Normal bowel sounds, Non tender Skin : Warm, Dry Skeletal: left leg hip covered with dressing with no erythema or bleeding Neurological : Alert & oriented x3, No focal deficit , CN 2-12 within normal Objective Data Active Medications Acetaminophen (Acetaminophen 325 Mg Tablet) 650 mg PO Q6H PRN PRN Reason: Pain, Mild (Pain Scale 1-3) Clonazepam (Clonazepam 0.5 Mg Tablet) 0.5 mg PO TID PRN PRN Reason: Anxiety Diphenhydramine HCl (Diphenhydramine Hcl 50 Mg/Ml Vial) 25 mg IVPUSH Q6H PRN PRN Reason: Allergic Reaction Docusate Sodium (Docusate Sodium 100 Mg Capsule) 100 mg PO DAILY PRN PRN Reason: Constipation Enoxaparin Sodium (Enoxaparin Sodium 40 Mg/0.4 Ml Syringe) 40 mg SUBCUT Q24H DOMINICK Hydromorphone HCl (Hydromorphone Hcl 0.5 Mg/0.5 Ml Syringe) 0.25 mg IVPUSH Q5M PRN PRN Reason: Pain, Severe (Pain Scale 7-10) Last Admin: 02/15/23 13:05 Dose: 0.25 mg Documented By: MUKESH Levothyroxine Sodium (Levothyroxine Sodium 112 Mcg Tablet) 112 mcg PO DAILY DOMINICK Last Admin: 02/16/23 07:31 Dose: 112 mcg Documented By: DEJAN Oxycodone HCl (Oxycodone Hcl Immed Release 5 Mg Tablet) 5 mg PO ONCE PRN PRN Reason: Pain, Mild (Pain Scale 1-3) Last Admin: 02/15/23 12:58 Dose: 5 mg Documented By: MUKESH Oxycodone HCl (Oxycodone Hcl Immed Release 5 Mg Tablet) 5 mg PO Q4H PRN PRN Reason: Pain, Severe (Pain Scale 7-10) Prochlorperazine Edisylate (Prochlorperazine Edisylate 10 Mg/2 Ml Vial) 5 mg IVPUSH Q4H PRN PRN Reason: Nausea and Vomiting Last Admin: 02/14/23 17:35 Dose: 5 mg Documented By: SAMARA Sodium Chloride (0.9 % Sodium Chloride Flush 3 Ml Syringe) [facility] Last Admin: 02/16/23 07:31 Dose: 3 ml Documented By: DEJAN Trazodone HCl (Trazodone Hcl 100 Mg Tablet) 100 mg PO BEDTIME [facility] Last Admin: 02/15/23 20:21 Dose: 100 mg Documented By: XAVIER Labs 02/16/23 05:11 02/16/23 05:05 Labs: Laboratory Results - last 24 hr 02/16/23 02/16/23 05:05 05:11 MCV 86.4 MCH 28.3 MCHC 32.8 RDW 14.6 Plt Count 141 L MPV 10.1 Absolute Nucleated RBC 0.000 Nucleated RBC % (auto) 0.0 Anion Gap 8 L Estim Creat Clear Calc 55.7 Estimated GFR 55 Random Glucose 120 H Calcium 9.0 Assessment and Plan (1) Acute pain of left hip: Status: Acute (2) Closed fracture of neck of left femur: Status: Acute Plan 72-year-old female with past medical history of fibromyalgia, history of hypothyroidism, comes into the hospital with complaints of a fall found to have hip fracture # closed fracture of neck of left femur POD 1 pain control PT pending Ortho team following # history of fibromyalgia continue bupropion # hypothyroidism continue levothyroxine DVT prophylaxis: SCD given patient's need for surgical repair hip fracture and PT patient will require overnight inpatient hospital stay for further management and monitoring Time Spent With Patient Time: Total time managing care of this patient today ____ minutes. Quality Stroke Does the patient have a stroke diagnosis?: No VTE Prior VTE?: No VTE Risk Level:: Surgical - very high VTE Device Contraindication: N/A - Device Ordered VTE Drug Contraindication: Treatment Not Indicated
[2023-02-16] MEDS: Acetaminophen 325 MG TABLET 650 MG PO (10:35)
[2023-02-16] MEDS: Enoxaparin Sodium 40 MG/0.4 ML SYRINGE SUBCUT (10:35)
[2023-02-16] MEDS: oxyCODONE HCl Immed Release 5 MG TABLET PO (10:36)
--- NOTE | 2023-02-16 11:16 | P.PNOP_ITS ---
Subjective Subjective Date of Service: 02/16/23 Interval history: POD 1 s/p Left crpp left hip no overnight events resting in bed, worked with PT ambulating to bathroom denies cp, sob, palpitations Physical Exam Vital Signs: Vital Signs: Last Vital Signs Temp 97.3 F 02/16/23 07:28 Pulse 63 02/16/23 07:28 Resp 18 02/16/23 07:28 BP 139/62 02/16/23 07:28 Pulse Ox 97 02/16/23 07:28 O2 Del Method Room Air 02/16/23 07:28 O2 Flow Rate 2 02/15/23 14:00 BMI result Body Mass Index 33.1 Const: General: cooperative, healthy appearing and no acute distress Resp: Effort & Inspection: normal respiratory effort and able to speak in complete sentences Cardio: Rate: regular rate Peripheral pulses: Peripheral pulses 2+ throughout GI: Palpation (GI): Soft to palpation Skin: General skin exam: no rashes or lesions noted Extrem: Other: Left hip incision clean dry and intact. Cyndee intact. No erythema or effusion. Calf supple nontender. Neurovascularly intact. Procedures Date of Service Date of Service: 02/16/23 Progress Note: A&P Assessment and plan (1) Closed fracture of neck of left femur: Status: Acute Assessment and Plan: * Continue pain mgmnt * Begin lovenox for dvt ppx * begin PT/OT for LT hip CRPP-wbat * Dispo planning-Pending PT eval, pain mgmnt Time Spent With Patient Time: Total time managing care of this patient today ____ minutes. Quality Stroke Does the patient have a stroke diagnosis?: No VTE Prior VTE?: No VTE Risk Level:: Surgical - very high VTE Device Contraindication: N/A - Device Ordered VTE Drug Contraindication: Treatment Not Indicated
[2023-02-16] MEDS: HYDROmorphone HCl 0.5 MG/0.5 ML SYRINGE IVPUSH ×2 (13:46→20:03)
--- NOTE | 2023-02-16 14:46 | HO.POSTANES ---
Post Anesthesia Evaluation Post Anesthesia Evaluation Vital Signs: Vital Signs Temp Pulse Resp BP Pulse Ox O2 Del Method 02/16/23 07:28 97.3 F 63 18 139/62 97 Room Air 02/16/23 03:36 97.8 F 63 14 135/63 97 Room Air Anesthesia: General LMA Mental Status: Awake Pain Control: Satisfactory Nausea/Vomiting: None Hydration: Adequate Anesthesia-Related Issues: No Anes. Related Issues
[2023-02-16 15:17] VITALS: BP 122/57; PULSE 67; RESP 18; TEMP 36.1; O2SAT 98
[2023-02-16 19:43] VITALS: BP 134/65; PULSE 67; RESP 17; TEMP 36.2; O2SAT 98
[2023-02-16] MEDS: traZODone HCL 100 MG TABLET PO (20:03)
[2023-02-17] MEDS: HYDROmorphone HCl 0.5 MG/0.5 ML SYRINGE IVPUSH ×3 (02:41→23:40)
[2023-02-17 03:39] VITALS: BP 157/67; PULSE 63; RESP 16; TEMP 36; O2SAT 96
[2023-02-17 07:24] VITALS: BP 139/57; PULSE 62; RESP 16; TEMP 36; O2SAT 100
[2023-02-17] MEDS: Enoxaparin Sodium 40 MG/0.4 ML SYRINGE SUBCUT (08:36)
[2023-02-17] MEDS: Levothyroxine Sodium 112 MCG TABLET PO (08:36)
[2023-02-17] MEDS: 0.9 % Sodium Chloride Flush 3 ML SYRINGE IVFLUSH ×3 (08:37→19:53)
--- NOTE | 2023-02-17 10:35 | P.PNIM_ITS ---
Subjective Subjective Date of Service: 02/17/23 Interval History: Seen and evaluated pain under fair control no overnight events POD 2, feels much better Review of Systems Review of Systems: Yes all other systems are reviewed and are negative Physical Exam Vital Signs: Vital Signs: Last Vital Signs Temp 96.8 F 02/17/23 07:24 Pulse 62 02/17/23 07:24 Resp 16 02/17/23 07:24 BP 139/57 L 02/17/23 07:24 Pulse Ox 100 02/17/23 07:24 O2 Del Method Room Air 02/17/23 07:24 O2 Flow Rate 2 02/15/23 14:00 BMI result Body Mass Index 33.1 Const: Other: Constitutional : Awake, interactive, not in distress Neck : Normal inspection, Supple Cardiovascular : RRR, no JVP, no lower extremity edema Respiratory : good bilateral air entry, no crackles, wheezes or rhonchi Gastrointestinal: soft, lax, Normal bowel sounds, Non tender Skin : Warm, Dry Skeletal: left leg hip covered with dressing with no erythema or bleeding Neurological : Alert & oriented x3, No focal deficit , CN 2-12 within normal Objective Data Active Medications Acetaminophen (Acetaminophen 325 Mg Tablet) 650 mg PO Q6H PRN PRN Reason: Pain, Mild (Pain Scale 1-3) Last Admin: 02/16/23 10:35 Dose: 650 mg Documented By: DEJAN Clonazepam (Clonazepam 0.5 Mg Tablet) 0.5 mg PO TID PRN PRN Reason: Anxiety Diphenhydramine HCl (Diphenhydramine Hcl 50 Mg/Ml Vial) 25 mg IVPUSH Q6H PRN PRN Reason: Allergic Reaction Docusate Sodium (Docusate Sodium 100 Mg Capsule) 100 mg PO DAILY PRN PRN Reason: Constipation Enoxaparin Sodium (Enoxaparin Sodium 40 Mg/0.4 Ml Syringe) 40 mg SUBCUT Q24H DOMINICK Last Admin: 02/17/23 08:36 Dose: 40 mg Documented By: DEJAN Hydromorphone HCl (Hydromorphone Hcl 0.5 Mg/0.5 Ml Syringe) 0.5 mg IVPUSH Q4H PRN PRN Reason: Pain, Severe (Pain Scale 7-10) Last Admin: 02/17/23 08:37 Dose: 0.5 mg Documented By: DEJNA Levothyroxine Sodium (Levothyroxine Sodium 112 Mcg Tablet) 112 mcg PO DAILY [facility] Last Admin: 02/17/23 08:36 Dose: 112 mcg Documented By: DEJAN Oxycodone HCl (Oxycodone Hcl Immed Release 5 Mg Tablet) 5 mg PO ONCE PRN PRN Reason: Pain, Mild (Pain Scale 1-3) Last Admin: 02/15/23 12:58 Dose: 5 mg Documented By: MUKESH Oxycodone HCl (Oxycodone Hcl Immed Release 5 Mg Tablet) 5 mg PO Q4H PRN PRN Reason: Pain, Severe (Pain Scale 7-10) Last Admin: 02/16/23 10:36 Dose: 5 mg Documented By: DEJAN Prochlorperazine Edisylate (Prochlorperazine Edisylate 10 Mg/2 Ml Vial) 5 mg IVPUSH Q4H PRN PRN Reason: Nausea and Vomiting Last Admin: 02/14/23 17:35 Dose: 5 mg Documented By: SAMARA Sodium Chloride (0.9 % Sodium Chloride Flush 3 Ml Syringe) 3 ml IVFLUSH QSHIFT [facility] Last Admin: 02/17/23 08:37 Dose: 3 ml Documented By: DEJAN Trazodone HCl (Trazodone Hcl 100 Mg Tablet) 100 mg PO BEDTIME [facility] Last Admin: 02/16/23 20:03 Dose: 100 mg Documented By: XAVIER Labs 02/16/23 05:11 02/16/23 05:05 Assessment and Plan (1) Acute pain of left hip: Status: Acute (2) Closed fracture of neck of left femur: Status: Acute Plan 72-year-old female with past medical history of fibromyalgia, history of hypothyroidism, comes into the hospital with complaints of a fall found to have hip fracture # closed fracture of neck of left femur POD 2 pain control PT suggested SNF placement Ortho team following # history of fibromyalgia continue bupropion # hypothyroidism continue levothyroxine DVT prophylaxis: SCD given patient's need for surgical repair hip fracture and PT patient will require overnight inpatient hospital stay pending safe discharge plan Time Spent With Patient Time: Total time managing care of this patient today ____ minutes. Quality Stroke Does the patient have a stroke diagnosis?: No VTE Prior VTE?: No VTE Risk Level:: Surgical - very high VTE Device Contraindication: N/A - Device Ordered VTE Drug Contraindication: Treatment Not Indicated
[2023-02-17] MEDS: Acetaminophen 325 MG TABLET 650 MG PO (14:12)
[2023-02-17] MEDS: oxyCODONE HCl Immed Release 5 MG TABLET PO (14:12)
[2023-02-17 15:10] VITALS: BP 130/58; PULSE 65; RESP 18; TEMP 36.4; O2SAT 95
[2023-02-17] MEDS: traZODone HCL 100 MG TABLET PO (19:52)
[2023-02-18 03:47] VITALS: BP 150/64; PULSE 60; RESP 18; TEMP 36; O2SAT 95
[2023-02-18 07:27] VITALS: BP 157/67; PULSE 68; RESP 20; TEMP 36.2; O2SAT 98
[2023-02-18] MEDS: Levothyroxine Sodium 112 MCG TABLET PO (07:54)
[2023-02-18] MEDS: 0.9 % Sodium Chloride Flush 3 ML SYRINGE IVFLUSH (07:54)
[2023-02-18] MEDS: HYDROmorphone HCl 0.5 MG/0.5 ML SYRINGE IVPUSH (07:55)
--- NOTE | 2023-02-18 10:21 | P.PNOP_ITS ---
Subjective Subjective Date of Service: 02/19/23 Interval history: POD 3 s/p Left crpp left hip no overnight events resting in bed, worked with PT ambulating to bathroom denies cp, sob, palpitations Physical Exam Vital Signs: Vital Signs: Last Vital Signs Temp 97.1 F 02/18/23 07:27 Pulse 68 02/18/23 07:27 Resp 20 02/18/23 07:27 BP 157/67 H 02/18/23 07:27 Pulse Ox 98 02/18/23 07:27 O2 Del Method Room Air 02/18/23 07:27 O2 Flow Rate 2 02/15/23 14:00 BMI result Body Mass Index 33.1 Const: General: cooperative, healthy appearing and no acute distress Resp: Effort & Inspection: normal respiratory effort and able to speak in complete sentences Cardio: Rate: regular rate Peripheral pulses: Peripheral pulses 2+ throughout GI: Palpation (GI): Soft to palpation Skin: General skin exam: no rashes or lesions noted Extrem: Other: Left hip incision clean dry and intact. Cyndee intact. No erythema or effusion. Calf supple nontender. Neurovascularly intact. Procedures Date of Service Date of Service: 02/19/23 Progress Note: A&P Assessment and plan (1) Closed fracture of neck of left femur: Status: Acute Assessment and Plan: * Continue pain mgmnt * cont lovenox for dvt ppx * cont PT/OT for LT hip CRPP-wbat * Dispo planning-Pending PT eval, pain mgmnt Time Spent With Patient Time: Total time managing care of this patient today ____ minutes. Quality Stroke Does the patient have a stroke diagnosis?: No VTE Prior VTE?: No VTE Risk Level:: Surgical - very high VTE Device Contraindication: N/A - Device Ordered VTE Drug Contraindication: Treatment Not Indicated
[2023-02-18] MEDS: Enoxaparin Sodium 40 MG/0.4 ML SYRINGE SUBCUT (10:39)
--- NOTE | 2023-02-18 12:22 | P.DS_ITS ---
DS: Providers Provider Date of Service: 02/18/23 Date of admission: 02/14/23 03:50 Primary care physician: Unknown Physician DS: Diagnosis Discharge Diagnosis (1) Closed fracture of neck of left femur: Status: Acute (2) Acute pain of left hip: Status: Acute DS: Summary Hospital Course Hospital Course: Admission note HPI ?72-year-old female with past medical history of breast cancer, fibromyalgia, presents to the hospital with complaints? of mechanical fall in developing severe pain in her hips which prompted her? to come to the hospital.? Patient reports that she was working in the kitchen, when she fell and hurt her hip, she denies any dizziness, no chest pain, no palpitations, no loss of consciousness, no head injury,? reports that once she fell she has severe pain, around her hips, she was complaining of left-sided severe hip pain.? She denies any chest pain, no abdominal pain, no urinary symptoms, no lower extremity edema. ? Initial x-ray of the hip showed no evidence of a traumatic osseous injury,? but due to severe pain and inability to move her legs without causing severe pain patient had a CT scan of the hip which showed acute nondisplaced unicortical fracture of the left femoral neck, orthopedic surgery was consulted and patient is scheduled for repair this a.m. Hospital course comes into the hospital with complaints of a fall found to have acute left hip fracture. seen by orthopedica team who did left CRPP hip. she was able to participate with PT and pain fairly controlled. to continue PT at nursing facility. DVT PPx with Lovenox for 4 weeks. Oxycodone as needed for pain. Oxycodone as needed Continue PT as tolerated Time Spent with Patient Time attestation: Total time managing care of this patient today ____ minutes. Discharge coordination time: Greater than 30 minutes Quality: Safe Use of Opioids Does Pt have an Active Cancer Diagnosis on the Problem List?: No Quality: Stroke Does the patient have a stroke diagnosis?: No Physical Exam Vital Signs: Vital Signs: Last Vital Signs Temp 97.1 F 02/18/23 07:27 Pulse 68 02/18/23 07:27 Resp 20 02/18/23 07:27 BP 157/67 H 02/18/23 07:27 Pulse Ox 98 02/18/23 07:27 O2 Del Method Room Air 02/18/23 07:27 O2 Flow Rate 2 02/15/23 14:00 BMI result Body Mass Index 33.1 Const: Other: Constitutional : Awake, interactive, not in distress Neck : Normal inspection, Supple Cardiovascular : RRR, no JVP, no lower extremity edema Respiratory : good bilateral air entry, no crackles, wheezes or rhonchi Gastrointestinal: soft, lax, Normal bowel sounds, Non tender Skin : Warm, Dry Skeletal: left leg hip covered with dressing with no erythema or bleeding Neurological : Alert & oriented x3, No focal deficit , DS: Data Imaging XR : Radiologist's impression: ITS Impressions Hip X-Ray 02/14/23 00:00 IMPRESSION: No evidence of a traumatic osseous injury. Degenerative changes in the knee. Knee X-Ray 02/14/23 00:00 IMPRESSION: No evidence of a traumatic osseous injury. Degenerative changes in the knee. Hip CT 02/14/23 01:50 IMPRESSION: Acute nondisplaced, possibly unicortical fracture of the left femoral neck. See wood images. Discharge Plan Discharge Anticipated Discharge Date/Time: 02/18/23 12:07 Patient Disposition: [facility] Discharge Diagnosis: Left hip fracture Referrals: [facility] [Other] - 1 Week Physician,Unknown J [Primary Care Provider] - 1 Week Discharge Medications: New oxycodone 5 mg Tablet 5 mg PO Q4H PRN (Reason: Pain, Severe (Pain Scale 7-10)) Qty: 20 0RF Rx Instructions: Partial Fill upon patient request. enoxaparin 40 mg/0.4 mL Syringe 40 mg subcut Q24H 28 Days Qty: 11.2 0RF Continued clonazepam 0.5 mg tablet 0.5 mg PO TID PRN (Reason: Anxiety) docusate sodium 50 mg Capsule 50 mg PO DAILY trazodone 100 mg tablet 100 mg PO BEDTIME esomeprazole magnesium [Nexium] 40 mg Capsule,Delayed Release(Dr/Ec) 40 mg PO DAILY magnesium 100 mg Capsule 100 mg PO DAILY raloxifene 60 mg tablet 60 mg PO DAILY aspirin 81 mg Tablet 81 mg PO DAILY ergocalciferol (vitamin D2) 1,250 mcg (50,000 unit) capsule 1,250 mcg PO QMONTH levothyroxine 112 mcg tablet 112 mcg PO DAILY bupropion HCl 300 mg tablet extended release 24 hr 300 mg PO DAILY Myrbetriq 50 mg tablet extended release 24 hr 50 mg PO DAILY Ca-D3-mag [id number] [Calcium 600-D3 Plus (mag-zinc)] 600 mg calcium- 20 mcg-50 mg Tablet 1 tab PO DAILY psyllium husk [Metamucil] 0.4 gram Capsule 0.4 g PO DAILY Discharge Orders: Discharge Order (Routine); Ordered 02/18/23 Ordered By: Evelyne Valle Diet: Advance to usual diet Activity on Discharge: As tolerated Stand Alone Forms: Patient Portal Discharge page Care Plan Goals: Read below Health Concerns: Read below Plan of Treatment: Read below Assessment: You were admitted after sustaining a fall. found to have hip fracture that was treated surgically by orthopedic team. tolerated physical therapy who recommended short term rehab. Oxycodone as needed Continue PT as tolerated
--- NOTE | 2023-02-18 12:30 | MHC.CM.PN ---
pt being dcd today to [facility] pt to be leaving at 3 pt confirmed she can bring he raloxifine from home to [facility] son called to confirm same
[2023-02-18] MEDS: oxyCODONE HCl Immed Release 5 MG TABLET PO (12:34)
[2023-02-18] MEDS: Acetaminophen 325 MG TABLET 650 MG PO (12:34)
--- NOTE | 2023-02-19 09:57 | P.OP_ITS ---
Operative Note Operative Note Date of Service: 02/15/23 Narrative: Date of Service: 02/15/23 Pre-op diagnosis: Left femoral neck fracture Post-op diagnosis: same Procedure: CRPP left hip Implants: Melvin 6.5 partially threaded cancellous screws x 3 Surgeon: Clif Flores MD Anesthesia: GETA and local Was an Student Success Advisor used for this Procedure?: No Estimated blood loss (mL): 20 IV fluids (mL): 500 Pathology: other Condition: stable Disposition: PACU Procedure in detail:? Patient was brought to the operating room and prepped and draped in standard sterile fashion.? Time-out was called to identify proper site procedure proper surgeon and IV antibiotics per weight were administered.? She was positioned on the fracture table with slight internal rotation? and biplanar fluoroscopy confirmed fracture reduction.? I then made a stab incision at the level of the lesser. I then placed 3 k-wires in an inverted triangle configuration through the femoral neck and into the femoral head. I used biplanar fluoro to confirm screw position on the AP and lateral projection. I was satisfied with the position of the k-wires I measured and then placed three partially threaded cancellous screws over the wires. I was satisfied with the fracture alignment and screw position. I copiously irrigated closed with absorbable sutures anni and injected 30 mL of into the area of the incisions.? Patient was placed in sterile dressing awakened from anesthesia brought to recovery room stable condit ion there were no known complications.
== END 2023-02-18 16:36 | disposition skilled nursing facility (03) | DRG 482 ==
LOC: HO.ED 02-14 03:38 → HO.EDOVER 02-14 04:00 → HO.S3 02-14 11:25
PROVIDERS: Emergency Medicine; Orthopaedic Surgery; Admitting Provider Internal Medicine; Emergency Provider Emergency Medicine Emergency Medical Services; Visit Provider Student in an Organized Health Care Education/Training Program
PROC: 0QS734Z Reposition Left Upper Femur with Internal Fixation Device, Percutaneous Approach (ICD-10-PCS; principal; 2023-02-15 10:30)
DX: S72.092A Other fracture of head and neck of left femur, initial encounter for closed fracture (principal); W01.0XXA Fall on same level from slipping, tripping and stumbling without subsequent striking against object, initial encounter; M79.7 Fibromyalgia; E03.9 Hypothyroidism, unspecified; Z85.3 Personal history of malignant neoplasm of breast; Z92.21 Personal history of antineoplastic chemotherapy; Z88.8 Allergy status to other drugs, medicaments and biological substances; Z79.82 Long term (current) use of aspirin; Z79.890 Hormone replacement therapy; Z79.899 Other long term (current) drug therapy
CPT/HCPCS: 36415; 73502; 73562; 73700; 80048; 80053; 80076; 81003; 85025; 85027; 85610; 85730; 86850; 86900; 86901; 93005; 97116; 97162; 97166; 99285; C1713; C1769; J0131; J0690; J1100; J1170; J1650; J2270; J2795; J3010

== ENCOUNTER 2023-02-28 09:38 | Outpatient (REF) | payer OTHER, MEDICARE, SELFPAY ==
--- NOTE | ~2023-02-28 | XR_ITS ---
Examination: Left hip and pelvis. Clinical indications: Pain. Status post left hip nailing for fracture COMPARISON: CT left hip 02/15/2020. TECHNIQUE: AP pelvis one view. Left hip 2 views. FINDINGS: AP pelvis and left hip: There are 3 cancellous screws traversing the left femoral neck stabilizing neck fracture. No abnormality seen involving the hardware. The hip joint space bilaterally is maintained normal. SI joints are normal. The pelvic bones are normal. The soft tissues are normal. XR/XR hip LT 1V IMPRESSION: There are 3 cancellous screws traversing the left femoral neck fracture. The fracture fragments are in good alignment. No abnormality seen involving the hardware. The hip joint space is maintained normal.
--- NOTE | ~2023-02-28 | XR_ITS ---
Examination: Left hip and pelvis. Clinical indications: Pain. Status post left hip nailing for fracture COMPARISON: CT left hip 02/15/2020. TECHNIQUE: AP pelvis one view. Left hip 2 views. FINDINGS: AP pelvis and left hip: There are 3 cancellous screws traversing the left femoral neck stabilizing neck fracture. No abnormality seen involving the hardware. The hip joint space bilaterally is maintained normal. SI joints are normal. The pelvic bones are normal. The soft tissues are normal. XR/XR pelvis 1-2V IMPRESSION: There are 3 cancellous screws traversing the left femoral neck fracture. The fracture fragments are in good alignment. No abnormality seen involving the hardware. The hip joint space is maintained normal.
== END 2023-02-28 09:39 | disposition home or self-care (01) ==
LOC: HO.HOSX 09:38
PROVIDERS: Visit Provider Orthopaedic Surgery
DX: S72.002D Fracture of unspecified part of neck of left femur, subsequent encounter for closed fracture with routine healing (principal)
CPT/HCPCS: 72170; 73501; 73502; 99212

== ENCOUNTER 2023-03-28 11:51 | Outpatient (REF) | payer MEDICARE, SELFPAY | END 2023-03-28 11:52 | disposition home or self-care (01) | LOC: HO.HOSX 11:51 | PROVIDERS: Visit Provider Orthopaedic Surgery | DX: S72.002D Fracture of unspecified part of neck of left femur, subsequent encounter for closed fracture with routine healing (principal); M17.12 Unilateral primary osteoarthritis, left knee | CPT/HCPCS: 20610; 72170; 99212; J1100 ==

== ENCOUNTER → 2023-05-29 15:57 | Outpatient (AMB) | payer MEDICARE, SELFPAY ==
[2023-05-29 16:00] VITALS: BP 140/70; PULSE 83; O2SAT 99; BMI 34.0
--- NOTE | 2023-05-29 16:00 | MHC.PC.OV ---
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 Allergies ondansetron [From ZOFRAN ( HYDROCHLORIDE)] Allergy (Unknown, Verified 05/29/23 17:55) ANAPHYLAXIS Medication List - Last Reconciled 05/29/23 by DA [place]-DONAVAN aspirin 81 mg PO DAILY Bifidobacterium infantis (Align) 4 mg PO BEDTIME bupropion HCl 300 mg PO DAILY Ca-D3-mag we-kzzp-dqd-matt-bor 600 mg calcium- 20 mcg-50 mg (Calcium 600-D3 Plus (mag-zinc)) 1 tab PO DAILY clonazepam 0.5 mg PO TID PRN cranberry conc-ascorbic acid 4,200-20 mg caps PO cyanocobalamin (vitamin B-12) 1,000 mcg PO DAILY docusate sodium 50 mg PO DAILY ergocalciferol (vitamin D2) 1,250 mcg PO QMONTH esomeprazole magnesium (Nexium) 40 mg PO DAILY flaxseed oil-omega 3,6,9 1,300 mg-845 mg -117 mg-117 mg caps PO gabapentin 300 mg PO BEDTIME levothyroxine 112 mcg PO DAILY magnesium 100 mg PO DAILY mirabegron ER (Myrbetriq) 50 mg PO DAILY cmtndssv-afg-aljm-FA-vit K-lut 8 mg iron-400 mcg-50 mcg (Centrum Silver Women) 1 tab PO DAILY psyllium husk (Metamucil) 0.4 grams PO DAILY raloxifene 60 mg PO DAILY trazodone 100 mg PO BEDTIME vitamin B complex 1 cap PO DAILY Tobacco use date assessed: 05/29/23 Fall risk assessment: 2 + Falls in past year Last assessed Fall Risk: 05/29/23 Dental Screening Dental Screen Date: 05/29/23 Did you have a dental visit in the last 12 months?: Yes Did you have a dental problem in the last 6 months where you did not have access to dental care?: No Was dental information given to patient?: 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 Will order labs. Mammo is up to date, according to pt. pt reports having breast Ca (Ca free), on raloxifene currently, was seeing a oncologist at [facility], once a year, but wants a provider around here. Will refer to our oncology team as requested. Memory loss: mini mental score was 29/30. pt does report Hx of neuropathy (from cancer treatments). Pt reports Fx her hip in december, since then has had severe bilat knee pain. pt reports she was given a cortisone injection to knees, it did not work . Will order more recent XRs. Pt reports having her bone density test last November. [facility] Medical History (Updated 05/29/23 @ 18:02 by URBANO [place]) Breast cancer Closed fracture of neck of left femur Fibromyalgia Glaucoma History of kidney disease History of sepsis Hypothyroidism Lupus Sleep apnea Surgical History History of cholecystectomy Family History Father Substance use disorder Mental health disorder Social History Household Members: None Housing: Apartment Housing Other:: nursing home Patient Tobacco Use Status: Never used Tobacco e-Cigarette/Vaping Use: Never Used Second Hand Smoke Exposure: No service: No Current occupational status: retired Cognitive needs: No Hearing needs: No Vision needs: No Questionnaire PHQ-9 Over the last 2 weeks, how often have you been bothered by any of the following problems? 1. Little interest or pleasure in doing things: not at all 2. Feeling down, depressed, or hopeless: not at all 3. Trouble falling or staying asleep, or sleeping too much: nearly every day 4. Feeling tired or having little energy: more than half the days 5. Poor appetite or overeating: several days 6. Feeling bad about yourself - or that you are a failure or have let yourself or your family down: not at all 7. Trouble concentrating on things, such as reading the newspaper or watching television: not at all 8. Moving or speaking so slowly that other people could have noticed. Or the opposite - being so fidgety or restless that you have been moving around a lot more than usual: not at all 9. Thoughts that you would be better off or of hurting yourself in some way: not at all Total score: 6 Depression Screening Interpretation: Negative 47478 - PHQ-9 Billing: Yes Source: Developed by Drs. David Perez, Carole Michelle, Virgil Harris and colleagues, with an educational gifty from [employer]. Thrive Questionnaire Date Thrive assessed: 05/29/23 I am a: Patient What is your living situation today?: I have a steady place to live Within the past 12 months, did the food you bought not last and you didn't have the money to get more?: Never true Within the past 12 months, did you worry whether your food would run out before you got money to buy more?: Never true Do you have trouble paying for medicines?: Yes Do you have trouble getting transportation to medical appointments?: No Do you have trouble paying your heating and electricity bill?: No Do you have trouble taking care of your child, family member or friend?: No Do you have trouble with day-to-day activities such as bathing, preparing meals, shopping, managing finances, etc.?: No Are you currently unemployed and looking for a job?: No Are you interested in more education?: No Please select the resources that you would like help with: Paying for medicine Currently or been in a relationship where the following occur: no concerns reported AUDIT C Alcohol Use Questionnaire (AUDIT-C) 1. How often do you have a drink containing alcohol?: Never Total Score: 0 SEEMA-7 AMB Questionnaire SEEMA-7 Date SEEMA - 7 assessed: 05/29/23 Feeling nervous, anxious, or on edge: 1 = Several days Not being able to stop or control worryin = Several days Worrying too much about different things: 1 = Several days Trouble relaxin = Several days Being so restless that it is hard to sit still: 0 = Not at all Becoming easily annoyed or irritable: 0 = Not at all Feeling afraid as if something awful might happen: 0 = Not at all Total SEEMA-7 score (0-4 normal; 5-9 mild; 10-14 moderate; 15-21 severe): 4 Source: Developed by Drs. David Perez, Carole Michelle, Virgil Harris and colleagues, with an educational gifty from [employer]. SEEMA-7 Assessment Billing SEEMA-7 Assessment Tool: SEEMA-7 Assessment 46933 Review of Systems Const Denies chills and Denies fever(s) Eyes Denies blurry vision ENT Denies vertigo, Denies dizziness and Denies sore throat Card Denies chest pain at rest, Denies chest pain with activity, Denies diaphoresis, Denies dyspnea and Denies dyspnea on exertion Resp Denies cough, Denies dyspnea, Denies dyspnea on exertion and Denies wheezing GI Denies abdominal pain, Denies melena, Denies hematochezia, Denies constipation, Denies diarrhea and Denies loose stools Denies hematuria Musc Denies numbness and Denies tingling Skin/Breast Denies lesions Neuro Denies vertigo, Denies dizziness, Denies numbness and Denies tingling Psych Denies anxiety, Denies depression, Denies homicidal ideation, Denies suicidal ideation and Denies other (substance abuse) Aller/Immun Denies wheezing Physical exam (Primary Care) Vital Signs: Last Vital Signs Pulse 83 05/29/23 16:00 BP 140/70 H 05/29/23 16:00 Pulse Ox 99 05/29/23 16:00 Oxygen Delivery Method Room Air 05/29/23 16:00 BMI result Body Mass Index 34.0 Tobacco/Smoking Status: Tobacco use Status Tobacco use date assessed 05/29/23 05/29/23 16:15 Patient Tobacco Use Status Never used Tobacco 05/29/23 16:03 e-Cigarette/Vaping Use Never Used 05/29/23 16:15 PHQ-9: PHQ-9 Score PHQ-9: Total score 6 05/29/23 17:21 Depression Screening Interpretation: Negative Thrive Assessment: Date of Thrive Assessment Date Thrive assessed 05/29/23 05/29/23 17:21 Currently or been in a relationship where the following occur: no concerns reported Const General: cooperative Nutritional Appearance: well nourished and obese Orientation/consciousness: patient oriented x3 HENMT Head: Yes normal to inspection, Yes normocephalic and Yes atraumatic Ears: TM's normal bilaterally Eyes General: appearance normal, both eyes and all related structures Alignment and Position: alignment normal and position normal Neck Neck: Yes normal visual inspection and Yes no lymphadenopathy Thyroid: Thyroid normal Resp Effort & Inspection: normal respiratory effort Auscultation: clear to auscultation bilaterally Cardio Rate: regular rate Rhythm: regular rhythm Heart sounds: S1 normal heart sound present, S2 normal heart sound present and Murmur heart sound present (faint) systolic GI Palpation (GI): Soft to palpation and nontender Auscultation: normal bowel sounds Back/Spine/Pelvis Other: with extension and flexion (knees), crepitus and tenderness noted throughout, L>R. Swelling noted to bilat knees, L>R Skin Other: pt is fair skinned, multiple freckles throughout, spots of scattered seborrheic Keratosis. Rashes: no rashes Neuro General: patient oriented x3, moves all extremities, no focal motor deficits and deep tendon reflexes 2+ bilaterally Romberg Test: Negative Extrem Other: trace edema to BLE Psych Appearance: grossly normal Mental Status: mental status grossly normal Speech and movement: Normal speech and movement present Affect: normal affect Attitude: cooperative Thought process: Normal thought process present Thought content: Normal thought content present Insight: Good insight present (Psych) Judgement: Good judgement present (Psych) Assessment and Plan Assessment & Plan (1) Breast cancer: Comment: right side. had chemo and radiation Code(s): C50.919 - Malignant neoplasm of unspecified site of unspecified female breast (2) Screening for colon cancer: Code(s): Z12.11 - Encounter for screening for malignant neoplasm of colon (3) Postmenopausal: Code(s): Z78.0 - Asymptomatic menopausal state Plan: vit d (4) Memory loss: Code(s): R41.3 - Other amnesia Plan: labs ordered, mini mental without significant findings (5) Bilateral knee pain: Code(s): M25.561 - Pain in right knee; M25.562 - Pain in left knee (6) Murmur: Code(s): R01.1 - Cardiac murmur, unspecified (7) Screening for lipid disorders: Code(s): Z13.220 - Encounter for screening for lipoid disorders (8) Hypothyroidism: Code(s): E03.9 - Hypothyroidism, unspecified (9) Skin lesions: Code(s): L98.9 - Disorder of the skin and subcutaneous tissue, unspecified Plan echo order Orders: Orders Comprehensive [place]. Panel Fast Today R41.3 - Other amnesia, Z78.0 - Asymptomatic menopausal state Lipid Panel Today Z13.220 - Encounter for screening for lipoid disorders TSH reflex Free T4 Today E03.9 - Hypothyroidism, unspecified Complete Blood Count Auto Diff Today C50.919 - Malignant neoplasm of unspecified site of unspecified female breast, Z78.0 - Asymptomatic menopausal state UA CC w/rflx Micro + Cult Today E03.9 - Hypothyroidism, unspecified, Z86.19 - Personal history of other infectious and parasitic diseases Vitamin D 25-OH Total Today Z78.0 - Asymptomatic menopausal state Vitamin B12 and Folate Today R41.3 - Other amnesia Homocysteine Today R41.3 - Other amnesia Methylmalonic Acid Today R41.3 - Other amnesia XR knee LT 2V Today M25.561 - Pain in right knee, M25.562 - Pain in left knee XR knee RT 2V Today M25.561 - Pain in right knee, M25.562 - Pain in left knee CA echo transthoracic complete Today R01.1 - Cardiac murmur, unspecified AMB EKG-In Office Today Z00.00 - Encounter for general adult medical examination without abnormal findings Referrals Hematology & Oncology Referral C50.919 - Malignant neoplasm of unspecified site of unspecified female breast Gastroenterology Referral K22.70 - Lakhani's esophagus without dysplasia, K58.1 - Irritable bowel syndrome with constipation, Z12.11 - Encounter for screening for malignant neoplasm of colon Dermatology Referral L98.9 - Disorder of the skin and subcutaneous tissue, unspecified Coding Level of Care Code New Pt Level 3 (70692) Diagnoses Breast cancer C50.919 Screening for colon cancer Z12.11 Postmenopausal Z78.0 Memory loss R41.3 Bilateral knee pain M25.561; M25.562 Murmur R01.1 Screening for lipid disorders Z13.220 Hypothyroidism E03.9 Skin lesions L98.9 Additional Codes SEEMA-7 Assessment Billing - SEEMA-7 Assessment Tool: SEEMA-7 Assessment 39569 ([id number])
== END ==
PROVIDERS: Visit Provider Nurse Practitioner Family
DX: E03.9 Hypothyroidism, unspecified (principal); C50.919 Malignant neoplasm of unspecified site of unspecified female breast; Z78.0 Asymptomatic menopausal state; R41.3 Other amnesia; M25.561 Pain in right knee; M25.562 Pain in left knee; R01.1 Cardiac murmur, unspecified; Z13.220 Encounter for screening for lipoid disorders; L98.9 Disorder of the skin and subcutaneous tissue, unspecified
CPT/HCPCS: 99203

== ENCOUNTER 2023-05-31 10:12 | Outpatient (REF) | payer MEDICARE, SELFPAY ==
--- NOTE | ~2023-05-31 | XR_ITS ---
EXAMINATION: XR KNEE, BILATERAL CLINICAL INDICATION: Pain in bilateral knee. COMPARISON: CT left hip 02/14/2023. TECHNIQUE: 2 views each knee. FINDINGS: LEFT KNEE: There is soft tissue calcification seen along the right lateral knee and posterior femur. Mild loss of patellofemoral and lateral compartment joint space is seen. No fracture, loose bodies or bony erosive changes. No soft tissue calcification. RIGHT KNEE: There is mild loss of medial and patellofemoral compartment joint space. No visible acute fracture, dislocation or subluxation seen. The soft tissues are normal. XR/XR knee LT 2V IMPRESSION: Soft tissue calcification along the left medial knee and posterior femur. No visible acute fracture or dislocation seen. Minimal degenerative changes right knee.
--- NOTE | ~2023-05-31 | XR_ITS ---
EXAMINATION: XR KNEE, BILATERAL CLINICAL INDICATION: Pain in bilateral knee. COMPARISON: CT left hip 02/14/2023. TECHNIQUE: 2 views each knee. FINDINGS: LEFT KNEE: There is soft tissue calcification seen along the right lateral knee and posterior femur. Mild loss of patellofemoral and lateral compartment joint space is seen. No fracture, loose bodies or bony erosive changes. No soft tissue calcification. RIGHT KNEE: There is mild loss of medial and patellofemoral compartment joint space. No visible acute fracture, dislocation or subluxation seen. The soft tissues are normal. XR/XR knee RT 2V IMPRESSION: Soft tissue calcification along the left medial knee and posterior femur. No visible acute fracture or dislocation seen. Minimal degenerative changes right knee.
[2023-05-31 11:17] LABS: MANUAL DIFF FLAG NO
[2023-05-31 11:45] LABS: Basophils Absolute Auto 0.1 X10*3/uL (0.0-0.2); Basophils Percent Auto 0.9 % (0-2); Eosinophils Absolute Auto 0.4 X10*3/uL (0.0-0.4); Eosinophils Percent Auto 5.7 % (0-4); Hematocrit 41.6 % (37.0-47.0); Hemoglobin 13.1 g/dl (12.0-16.0); Imm Gran Abs Auto 0.01 X10*3/uL (0.00-0.03); Imm Gran Pct Auto 0.1 % (0.0-0.4); Lymphocytes Absolute Auto 1.6 X10*3/uL (1.2-4.9); Lymphocytes Percent Auto 23.8 % (20-40); Mean Corpuscular HGB Conc 31.5 g/dl (31.0-35.0); Mean Corpuscular Hemoglobin 28.6 pg (27.0-33.0); Mean Corpuscular Volume 90.8 fL (80.0-98.0); Mean Platelet Volume 10.2 fL (9.4-12.3); Monocytes Absolute Auto 0.5 X10*3/uL (0.1-1.2); Monocytes Percent Auto 7.4 % (2-11); Neutrophils Absolute Auto 4.3 x10*3/uL (2.0-8.3); Neutrophils Percent Auto 62.1 % (45-73); Platelet Count 188 X10*3/uL (160-400); Red Blood Count 4.58 X10*6/uL (4.20-5.50); Red Cell Distribution Width 13.8 % (11.0-16.0); White Blood Count 6.9 X10*3/uL (4.8-10.8)
[2023-05-31 12:28] LABS: Alanine Aminotransferase 12 U/L (0-31); Albumin Level 3.5 g/dL (3.5-5.0); Alkaline Phosphatase 91 U/L (39-117); Anion Gap 14 (12-20); Aspartate Amino Transferase 16 U/L (5-31); Bilirubin Total 0.2 mg/dL (0.0-1.0); Blood Urea Nitrogen 19 mg/dL (9-16); Calcium 9.8 mg/dL (8.4-10.2); Carbon Dioxide 24 mmol/L (22-29); Chloride 106 mmol/L (96-108); Cholesterol 218 mg/dL (<200); Estimated Glomerular Filt Rate 54; Glucose Fasting 93 mg/dL (60-99); HDL Cholesterol 53 mg/dL (>40); LDL Cholesterol Calculated 148 mg/dL (<100); Potassium 4.5 mmol/L (3.3-5.1); Sodium 139 mmol/L (135-145); Total Protein 5.8 g/dL (6.5-8.0); Triglycerides 85 mg/dL (<150)
[2023-05-31 12:37] LABS: Appearance Urine Clear; Color Urine Dark Yellow; Glucose Urine UA Negative (Negative); Leukocyte Esterase Urine Negative (Negative); Nitrite Urine Negative (Negative); Urine Blood Negative (Negative); Urine Ketones Negative (Negative); Urine Protein Negative (Neg-Trace)
[2023-05-31 12:49] LABS: TSH reflex Free T4 3.16 uIU/mL (0.32-4.0); Vitamin D 25-OH Total 31.5 ng/mL (>30)
[2023-05-31 12:54] LABS: Folate 15.5 ng/mL (> or = 4.0); Vitamin B12 1535 pg/mL (200-900)
[2023-06-03 18:03] LABS: Homocysteine 8.6 umol/L (<10.4)
[2023-06-05 06:13] LABS: Methylmalonic Acid 185 nmol/L (87-318)
== END 2023-05-31 10:13 | disposition home or self-care (01) ==
LOC: HO.HMGCX 10:12
PROVIDERS: PCP Nurse Practitioner Family; Visit Provider Nurse Practitioner Family
DX: Z13.220 Encounter for screening for lipoid disorders (principal); M25.561 Pain in right knee; M25.562 Pain in left knee; R41.3 Other amnesia; E03.9 Hypothyroidism, unspecified; C50.919 Malignant neoplasm of unspecified site of unspecified female breast; Z78.0 Asymptomatic menopausal state; Z86.19 Personal history of other infectious and parasitic diseases; E55.9 Vitamin D deficiency, unspecified; R53.83 Other fatigue
CPT/HCPCS: 36415; 73560; 80053; 80061; 81003; 82306; 82607; 82746; 83090; 83921; 84443; 85025

== ENCOUNTER → 2023-06-25 11:23 | Outpatient (BNV) | payer MEDICARE, SELFPAY | PROVIDERS: PCP Nurse Practitioner Family; Visit Provider Internal Medicine | DX: Z85.3 Personal history of malignant neoplasm of breast (principal); M81.0 Age-related osteoporosis without current pathological fracture | CPT/HCPCS: 99204; 99214 ==

== ENCOUNTER → 2023-06-25 12:34 | Outpatient (REF) | payer MEDICARE, SELFPAY ==
--- NOTE | 2023-06-25 12:38 | CA_ITS ---
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 Normal LV ejection fraction 65-70% with grade 1 diastolic dysfunction 2. Mild aortic regurgitation 3. Mildly dilated ascending aorta at 3.7 cm 4. No pericardial effusion Findings Left Ventricle Normal left ventricular size, thickness, and systolic function. The visually estimated ejection fraction is between 65-70%. Spectral Doppler is indicative of an impaired relaxation filling pattern. E/E prime ratio is <8, consistent with normal filling pressures. Evidence suggests grade I (mild) diastolic dysfunction. Right Ventricle Normal right ventricular cavity size and systolic function. Atria Both atria are normal in size. There is no evidence of interatrial shunt. Aortic Valve Normal aortic valve structure and function. There is no aortic valve stenosis. There is mild aortic valve regurgitation. Mitral Valve Normal mitral valve structure and function. There is trace mitral valve regurgitation. There is no mitral valve stenosis. Pulmonic Valve The pulmonic valve is likely normal. Tricuspid Valve Normal tricuspid valve structure. Tricuspid regurgitation envelope is inadequate for calculation of right ventricular systolic pressure. Normal right atrial pressure. Great Vessels The pulmonary artery was not well visualized. There is mild dilatation of the ascending aorta. Venous The inferior vena cava is normal in size and collapses greater than 50% with inspiration. Pericardium/Pleural There is no evidence of pericardial effusion. Prior Study Comparison No prior study available for comparison. Measurements 2D Linear Measurements IVSd: 1.30 0.6-0.9/0.6-1.0 cm LVIDd: 4.00 3.9-5.3/4.2-5.9 cm LVIDd Index: 2.02 2.4-3.2/2.2-3.1 cm/m2 LVIDs: 2.50 2.0-3.6 cm LVPWd: 1.00 0.7-1.1 cm LA Diam: 3.40 2.7-3.8/3.0-4.0 cm LAIDs Index: 1.72 1.5-2.3 cm/m2 LV Mass: 193.49 67-162/88-224 g LV Mass Index: 97.72 43-95/49-115 g/m2 LVOT Diam: 2.10 3.0+(-)1.3 cm 2D Systolic Function EF 4C: 66.20 >55% EF 2C: 67.70 >55% EF BiP: 66.60 >55% Mitral Valve MV Pk E: 0.64 MV PK A: 0.96 MV Decel Time: 155.00 E/A: 0.70 E'Lateral: 7.51 E'Medial: 6.96 E/E' Med: 9.20 E/E' Lat: 8.50 PHT: 48.00 MVA PHT: 4.58 Decel Candler: 3.81 Aortic Valve AoV Pk Gabriele: 1.45 AoV Mn Gabriele: 1.01 AoV VTI: 0.29 AoV Pk Grad: 8.00 Aov Mn Grad: 4.00 ZENY Cont.VTI: 3.42 LVOT LVOT Pk Gabriele: 1.27 LVOT Mn Gabriele: 0.94 LVOT VTI: 0.29 LVOT Pk Grad: 6.00 LVOT Mn Grad: 4.00 LVOT Diam: 2.10 LVOT Area: 3.46 Diastolic Function MV Pk E: 0.64 MV Pk A: 0.96 E/A: 0.70 E'Medial: 6.96 E/E' Med: 9.20 E' Laterial: 7.51 E/E' Lat: 8.50 Right Ventricle TAPSE (mm): 21.30 TVS' Gabriele: 12.40 Tricuspid Valve RA Press: 3.00 Great Vessels Aorta Sinus of Valsalva: 3.40 2.0-3.[address] [place]: 2.40 1.7-3.4 cm Ao Asc: 3.70 2.1-3.4 cm Updated in Other Vendor System with Status of Final Sixto Anaya MD electronically signed on 06/25/2023 4:01:36 PM with status of Final
== END ==
LOC: HO.CARD 12:34
PROVIDERS: PCP Nurse Practitioner Family; Visit Provider Nurse Practitioner Family
DX: R01.1 Cardiac murmur, unspecified (principal)
CPT/HCPCS: 93306; Q9957

== ENCOUNTER → 2023-06-25 12:38 | Outpatient (BNV) | payer MEDICARE, SELFPAY | PROVIDERS: PCP Nurse Practitioner Family; Visit Provider Internal Medicine Cardiovascular Disease | DX: I35.1 Nonrheumatic aortic (valve) insufficiency (principal) | CPT/HCPCS: 93306 ==

== ENCOUNTER 2023-08-01 12:51 | Outpatient (REF) | payer MEDICARE, SELFPAY ==
--- NOTE | ~2023-08-01 | XR_ITS ---
EXAMINATION: AP pelvis and left hip TECHNIQUE: AP pelvis and 2 views of left hip. COMPARISON: 03/28/2023 FINDINGS: The position of hardware in left femoral head and neck area is stable. Fracture is not visualized. The right hip and pelvis are unremarkable. Soft tissues are normal. XR/XR hip LT 1V IMPRESSION: Status post ORIF of left hip fracture. .
--- NOTE | ~2023-08-01 | XR_ITS ---
EXAMINATION: AP pelvis and left hip TECHNIQUE: AP pelvis and 2 views of left hip. COMPARISON: 03/28/2023 FINDINGS: The position of hardware in left femoral head and neck area is stable. Fracture is not visualized. The right hip and pelvis are unremarkable. Soft tissues are normal. XR/XR pelvis 1-2V IMPRESSION: Status post ORIF of left hip fracture. .
--- NOTE | ~2023-08-01 | XR_ITS ---
EXAMINATION: XR SHOULDER, RIGHT CLINICAL INFORMATION: Pain in right shoulder COMPARISON: None available. TECHNIQUE: AP external rotation, scapular Y, and axillary views of the right shoulder. FINDINGS: There is no evidence of fracture or dislocation of the right shoulder. There are subchondral cysts formation in the lateral aspect of right greater tuberosity and there is amorphous calcifications in the subacromion soft tissues. Acromioclavicular joint and glenohumeral joints are preserved. XR/XR shoulder RT min 2V IMPRESSION: Degenerative changes in the right shoulder and soft tissue calcification in the subacromion.
== END 2023-08-01 12:52 | disposition home or self-care (01) ==
LOC: HO.HOSX 12:51
PROVIDERS: Visit Provider Orthopaedic Surgery
DX: M75.101 Unspecified rotator cuff tear or rupture of right shoulder, not specified as traumatic (principal); M25.511 Pain in right shoulder; M25.552 Pain in left hip; M17.12 Unilateral primary osteoarthritis, left knee; M17.11 Unilateral primary osteoarthritis, right knee; S72.002D Fracture of unspecified part of neck of left femur, subsequent encounter for closed fracture with routine healing; M79.7 Fibromyalgia; M24.811 Other specific joint derangements of right shoulder, not elsewhere classified; R26.9 Unspecified abnormalities of gait and mobility; X58.XXXD Exposure to other specified factors, subsequent encounter
CPT/HCPCS: 20610; 72170; 73030; 73501; 99212; J1100

== ENCOUNTER 2023-08-01 13:21 | Outpatient (AMB) | payer MEDICARE, SELFPAY ==
--- NOTE | 2023-08-01 13:30 | MHC.OFFVIS ---
Intake Vital Signs 08/01/23 13:40 Height 5 ft 6 in Weight 207 lb BMI 33.4 Handedness Right Intake Visit Reasons: New Prob - Right Shoulder Pain Intake Note: Reema is a 72 year old right hand dominant female who presents today for a new problem visit with complaints of right shoulder pain.Patient reports that she has has been having pain in the right shoulder for about 3 weeks now. Has history of torn RTC, she was doing PT which did help. She explains that she is taking Motrin for her shoulder but this is not helping. She uses ice application which does help mildly. She is frustrated as her pain is limiting her sleep and activity. Allergies ondansetron [From ZOFRAN ( HYDROCHLORIDE)] Allergy (Unknown, Verified 05/29/23 17:55) ANAPHYLAXIS HPI New Prob - Right Shoulder Pain HPI Details Reema is a 72 year old woman who presents with complaints of ~3 weeks right shoulder pain. She has pain with daily activity, worse with overhead activity and at night. She feels frustrated that her pain is limiting her activities and causing her to lose sleep. She finds mild relief from icing, no relief from Motrin, and found good relief from PT in the past. She reports a hx of a right RTC tear in the past, and denies any prior shoulder surgery. She says this happened in ~2018. She also complains of worsening pain in her bilateral knees, L>R. She says it is hard to function with her knee pain, and she feels she is struggling with her overwhelming body pain . She received a left knee injection on 03/28/23, with good relief. She is ~6 months S/P left hip CRPP. She says she has some pain in her hip which radiates down her leg. She denies any groin pain. She ambulates with a walker but finds this painful to do. She has Fibromyalgia [facility] Medical History (Updated 08/01/23 @ 14:19 by Ben Anton) CKD (chronic kidney disease) CLYDE (obstructive sleep apnea) Clostridium difficile infection Lupus Glaucoma History of kidney disease History of sepsis Sleep apnea Hypothyroidism Closed fracture of neck of left femur Breast cancer Fibromyalgia Surgical History History of cholecystectomy Family History Father Heart attack Clogged artery (heart) COPD (chronic obstructive pulmonary disease) Mother Stroke Clogged artery (heart) Sister COPD (chronic obstructive pulmonary disease) Brother COPD (chronic obstructive pulmonary disease) Social History Household Members: None Housing: Apartment Housing Other:: nursing home Patient Tobacco Use Status: Never used Tobacco e-Cigarette/Vaping Use: Never Used Second Hand Smoke Exposure: No service: No Current occupational status: retired Cognitive needs: No Hearing needs: No Vision needs: No Review of Systems Const All systems reviewed & are unremarkable except as noted in HPI and below Physical Exam Vital Signs: BMI result Body Mass Index 33.4 Const General: no acute distress, alert and awake Orientation/consciousness: patient oriented x3 HEENT Head: Yes normocephalic and Yes atraumatic Eyes EOM: EOMs intact bilaterally Resp Effort & Inspection: normal respiratory effort and able to speak in complete sentences Cardio Jugular venous distension: no JVD Skin General skin exam: turgor normal Rashes: no rashes Neuro General: patient oriented x3 Extrem Other: Right Shoulder: +H/N 45/90/130/L5 Left knee with medial joint ttp no effusion Psych Appearance: grossly normal Affect: normal affect Attitude: cooperative Office Procedures Joint Injection/Drain Joint Injection/Drain Details: Injected 1 mL of Decadron and 3 mL 1% lidocaine and 3 mL of 0.25% Marcaine. Site was prepped using aseptic technique. Patient tolerated the procedure well. Primary Site: right shoulder Approach Used: posterolateral Coding 02239 - Large joint Procedure code (CPT) selection complete Results Reviewed Results Reviewed: 08/01/23 13:58 BUPivacaine MPF 0.25 % [Sensorcaine-MPF 0.25% 10 ML] 10 ml .ROUTE .STK-MED ONE Lidocaine HCl 2 % MPF [Xylocaine 2 % MPF] 5 ml .ROUTE .STK-MED ONE dexAMETHasone sod phosphate [Decadron] 4 mg .ROUTE .STK-MED ONE I personally reviewed relevant radiographs. Left hip healed with no hardware complications Mild right shoulder GH and ACJ OA Assessment & Plan Assessment & Plan (1) Right rotator cuff tear: Code(s): M75.101 - Unspecified rotator cuff tear or rupture of right shoulder, not specified as traumatic Plan: This is a 72 year old woman with a right RTC tear and ~3 weeks worsening pain. She has pain with daily activity, worse with overhead activity and at night. She found relief from PT in the past, and NSAIDs have not been helpful. She feels frustrated by pain limiting her activities and affecting her sleep. I discussed her diagnosis and treatment options. I injected her right shoulder, which she tolerated well, and ordered PT for strengthening and normalizing gait mechanics. I recommend she remain active as tolerated and use ice & NSAIDs prn. She can follow up prn. (2) Fracture of femoral neck, left: Code(s): S72.002A - Fracture of unspecified part of neck of left femur, initial encounter for closed fracture Plan: S/P left femoral neck CRPP, DOS: 02/15/23. She is able to weight-bear using her assistive walker when out of the house, she is able to weight bear unassisted at home. Ordered PT for gait mechanics, she should be mindful to not push through pain. (3) Osteoarthritis of left knee: Code(s): M17.12 - Unilateral primary osteoarthritis, left knee Plan: Pain with ambulation and other daily activity. PT (4) Osteoarthritis of right knee: Code(s): M17.11 - Unilateral primary osteoarthritis, right knee (5) Fibromyalgia: Code(s): M79.7 - Fibromyalgia Plan Scribed for Clif Flores MD by Ben Anton, medical records auditor, on 08/01/23 at 2:20 PM, EST. Orders: Orders XR shoulder RT min 2V 08/01/23 M25.519 - Pain in unspecified shoulder XR pelvis 1-2V 08/01/23 M25.559 - Pain in unspecified hip XR hip LT 1V 08/01/23 M25.552 - Pain in left hip PT Evaluation and Treatment 08/01/23 M24.811 - Other specific joint derangements of right shoulder, not elsewhere classified, R26.9 - Unspecified abnormalities of gait and mobility Coding Level of Care Code Est Pt Level 4 (30476) Diagnoses Right rotator cuff tear M75.101 Fracture of femoral neck, left S72.002A Osteoarthritis of left knee M17.12 Osteoarthritis of right knee M17.11 Fibromyalgia M79.7 CPT Codes Coding - 23431 Large joint: 70957 - Large joint ([id number])
[2023-08-01 13:40] VITALS: BMI 33.4
== END 2023-08-01 14:24 | disposition home or self-care (01) ==
PROVIDERS: PCP Nurse Practitioner Family; Visit Provider Orthopaedic Surgery
DX: M75.101 Unspecified rotator cuff tear or rupture of right shoulder, not specified as traumatic (principal); S72.002A Fracture of unspecified part of neck of left femur, initial encounter for closed fracture; M17.0 Bilateral primary osteoarthritis of knee; M79.7 Fibromyalgia
CPT/HCPCS: 20610; 99214

== ENCOUNTER 2023-08-02 11:31 | Outpatient (REF) | payer MEDICARE, SELFPAY ==
[2023-08-02 14:39] LABS: Alanine Aminotransferase 14 U/L (0-31); Albumin Level 3.8 g/dL (3.5-5.0); Alkaline Phosphatase 91 U/L (39-117); Amylase 36 U/L (28-100); Anion Gap 11 (12-20); Aspartate Amino Transferase 17 U/L (5-31); Bilirubin Total 0.4 mg/dL (0.0-1.0); Blood Urea Nitrogen 18 mg/dL (9-16); Carbon Dioxide 24 mmol/L (22-29); Chloride 109 mmol/L (96-108); Cholesterol 151 mg/dL (<200); Estimated Glomerular Filt Rate 47; Glucose Fasting 110 mg/dL (60-99); HDL Cholesterol 54 mg/dL (>40); LDL Cholesterol Calculated 85 mg/dL (<100); Lipase 13 U/L (8-78); Sodium 140 mmol/L (135-145); Total Protein 6.3 g/dL (6.5-8.0); Triglycerides 63 mg/dL (<150)
== END 2023-08-02 11:32 | disposition home or self-care (01) ==
LOC: HO.LAB 11:31
PROVIDERS: PCP Nurse Practitioner Family; Visit Provider Nurse Practitioner
DX: Z01.818 Encounter for other preprocedural examination (principal); K22.70 Barrett's esophagus without dysplasia; K58.1 Irritable bowel syndrome with constipation; K59.04 Chronic idiopathic constipation; R41.3 Other amnesia; G47.30 Sleep apnea, unspecified; D36.9 Benign neoplasm, unspecified site; R11.2 Nausea with vomiting, unspecified; E78.5 Hyperlipidemia, unspecified; Z87.448 Personal history of other diseases of urinary system
CPT/HCPCS: 36415; 80053; 80061; 82150; 83690; 99212

== ENCOUNTER 2023-08-06 14:14 | Outpatient (REF) | payer MEDICARE, SELFPAY | END 2023-08-06 14:15 | disposition home or self-care (01) | LOC: HO.LNP 14:14 | PROVIDERS: Visit Provider Nurse Practitioner | DX: R11.2 Nausea with vomiting, unspecified (principal) | CPT/HCPCS: 87338 ==

== ENCOUNTER 2023-08-09 11:20 | Outpatient (AMB) | payer MEDICARE, SELFPAY ==
--- NOTE | 2023-08-09 11:26 | AM.OFFWIN_ITS ---
Intake Vital Signs 08/09/23 11:27 Height 5 ft 6 in BMI Reason not done Patient refused/unable BP 118/74 Blood Pressure Location Rt brachial Position Sitting Pulse 87 Pulse Source Pulse Oximeter Temp 97.8 F Temp Source Temporal Artery Scan Pulse Oximetry (%) 97 Oxygen Delivery Method Room Air Intake Visit Reasons: EP ?UTI Intake Note: pt is here for c/o possible uti Patient Tobacco Use Status: Never used Tobacco Allergies ondansetron [From ZOFRAN ( HYDROCHLORIDE)] Allergy (Unknown, Verified 08/09/23 11:27) ANAPHYLAXIS Do you need a note to return to daycare/school/sports/work: Yes HPI HPI Comments History of Present Illness Details The patient presents Urgent Care for evaluation of urinary symptoms. She reports frequency urgency and dysuria x3 days. No back pain no nausea vomiting fever chills PFSH Medical History (Updated 08/02/23 @ 12:30 by LESLIE Larsen) CKD (chronic kidney disease) CLYDE (obstructive sleep apnea) Clostridium difficile infection Lupus Glaucoma History of kidney disease History of sepsis Sleep apnea Hypothyroidism Closed fracture of neck of left femur Breast cancer Fibromyalgia Surgical History Hx of tonsillectomy History of hip surgery History of esophagogastroduodenoscopy (EGD) H/O colonoscopy History of cholecystectomy Family History Father Heart attack Clogged artery (heart) COPD (chronic obstructive pulmonary disease) Mother Stroke Clogged artery (heart) Sister COPD (chronic obstructive pulmonary disease) Brother COPD (chronic obstructive pulmonary disease) Social History Household Members: None Housing: Apartment Housing Other:: snf Patient Tobacco Use Status: Never used Tobacco e-Cigarette/Vaping Use: Never Used Second Hand Smoke Exposure: No service: No Current occupational status: retired Cognitive needs: No Hearing needs: No Vision needs: No Review of Systems Const Denies headache(s) ENT Denies headache(s) GI Denies abdominal pain and Denies diarrhea Denies difficulty voiding, Denies pelvic pain and Reports vaginal odor Neuro Denies headache(s) Physical Exam Vital Signs: Last Vital Signs Temp 97.8 F 08/09/23 11:27 Pulse 87 08/09/23 11:27 BP 118/74 08/09/23 11:27 Pulse Ox 97 08/09/23 11:27 Oxygen Delivery Method Room Air 08/09/23 11:27 Const General: healthy appearing and no acute distress HEENT Head: Yes normal to inspection Resp Effort & Inspection: normal respiratory effort and able to speak in complete sentences GI Inspection: Yes normal to inspection Results AMB Urinalysis, Automated UA Leukoctes 70 Amaury/uL Last Edit by Bernie Mehta CMA on 08/09/23 11:39 UA Nitrite Positive Last Edit by Bernie Mehta CMA on 08/09/23 11:39 UA Urobilinogen 0.2 mg/dL Last Edit by Bernie Mehta CMA on 08/09/23 11:39 UA Protein 0 mg/dL Last Edit by Bernie Mehta CMA on 08/09/23 11:39 UA pH 6.0 Last Edit by Bernie Mehta CMA on 08/09/23 11:39 UA Blood 0 Francois/uL Last Edit by Bernie Mehta, LORNA on 08/09/23 11:39 UA Specific [place] 1.030 Last Edit by Bernie Mehta CMA on 08/09/23 11:39 UA Ketone Negative Last Edit by Bernie Mehta CMA on 08/09/23 11:39 UA Bilirubin 0 mg/dL Last Edit by Bernie Mehta, LORNA on 08/09/23 11:39 UA Glucose 0 mg/dL Last Edit by Bernie Mehta CMA on 08/09/23 11:39 Results Reviewed Results Reviewed: Laboratory Last Values Urine pH (Auto) 6.0 08/09/23 11:37 Specific [place] (Auto) 1.030 08/09/23 11:37 Urine Protein (Auto) 0 mg/dL 08/09/23 11:37 Glucose (UA)(Auto) 0 mg/dL 08/09/23 11:37 Urine Ketones (Auto) Negative 08/09/23 11:37 Urine Blood (Auto) 0 Francois/uL 08/09/23 11:37 Urine Nitrite (Auto) Positive 08/09/23 11:37 Urine Bilirubin (Auto) 0 mg/dL 08/09/23 11:37 Urine Urobilinogen (Auto) 0.2 mg/dL 08/09/23 11:37 Leukocyte Esterase (Auto) 70 Amaury/uL 08/09/23 11:37 Assessment & Plan Assessment & Plan (1) UTI (urinary tract infection), uncomplicated: Code(s): N39.0 - Urinary tract infection, site not specified Plan Patient's symptoms consistent with a urinary tract infection. No signs of pyelonephritis. Will treat with antibiotics empirically and culture urine. Will contact patient if urine culture does not correlate with antibiotic prescri ption choice. Orders: Orders AMB Urinalysis Automated Today Z13.9 - Encounter for screening, unspecified Medications: New cephalexin 500 mg PO TID 21 caps 0RF 7 days Coding Level of Care Code Est Pt Level 3 (73216) Diagnoses UTI (urinary tract infection), uncomplicated N39.0
[2023-08-09 11:27] VITALS: BP 118/74; PULSE 87; TEMP 36.6; O2SAT 97
== END 2023-08-09 11:50 | disposition home or self-care (01) ==
PROVIDERS: PCP Nurse Practitioner Family; Visit Provider Emergency Medicine
DX: N39.0 Urinary tract infection, site not specified (principal); R30.0 Dysuria
CPT/HCPCS: 81003; 99213

== ENCOUNTER 2023-09-04 12:57 | Outpatient (AMB) | payer MEDICARE, SELFPAY ==
--- NOTE | 2023-09-04 13:00 | MHC.OFFVIS ---
Intake Vital Signs 09/04/23 13:07 Height 5 ft 6 in Weight 212 lb 8.41 oz BMI 34.3 BP 177/75 H Blood Pressure Location Lt brachial Position Sitting Pulse 70 Intake Visit Reasons: 1 month follow up Intake Note: Patient presents to in office visit today in one month follow up of labs. CC: Patient reports today that she continues to have constipation, nausea, diarrhea, heartburn, and acid reflux. She states that the Linzess make her constipation worst and she finished the medication and is no longer taking it. 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 She can not drink the gallon prep r/t vomiting. I will try to get her Sutab. She says she has constant nausea, she uses anmol candies. This started about a year ago. She had a lot of stress with her . She also will have CIC alt with diarrhea that is so bad she will have fecal incontinence. She feels that the CIC is more dominant. The nausea is less when she has diarrhea. She always uses Dulcolax but this will take a couple of days to work. She eats a lot of salads, she takes Align and she takes metamucil once day. She became more constipated with more fiber. She drinks a lot of water and tea. She has a hx of gallstones being stuck in the pancreatic duct x 2. She is in the donut hole, will try LInzess and if not move to GRX and amitiza. She has trouble with waking up from general anesthesia and vomiting. She denies any cardiac or respiratory problems. NO ID problems. She had 2 paternal uncles who of CRC, she is unsure of her parents if they had polyps. ROV 4 weeks and after EGD/colonoscopy (2) Memory loss: Code(s): R41.3 - Other amnesia (3) History of kidney disease: Comment: kidney damage from chemo. stays away from nsaids Code(s): Z87.448 - Personal history of other diseases of urinary system (4) Sleep apnea: Code(s): G47.30 - Sleep apnea, unspecified (5) Chronic idiopathic constipation: Code(s): K59.04 - Chronic idiopathic constipation (6) Multiple adenomatous polyps: Code(s): D36.9 - Benign neoplasm, unspecified site (7) Nausea and vomiting: Code(s): R11.2 - Nausea with vomiting, unspecified Orders: Orders EGD/[place] Combo - G I Use Only Today D36.9 - Benign tiana plasm, unspecified site Amylase Today R11.2 - Nausea wit h vomiting, unspec ified H pylori Ag Stool Today R11.2 - Nausea wit h vomiting, unspec ified Lipase Today R11.2 - Nausea wit h vomiting, unspec ified Medications: New sod sulf-pot chlor nirav-mag sulf 1.479 -0.188- 0.225 gram (Sutab) PO PER PKG DIR 24 tabs 0RF linaclotide (Linze ss) 72 mcg PO QAM 30 caps 3RF LABS: Laboratory Tests 08/02/23 08/06/23 13:08 13:34 Amylase 36 Lipase 13 Stool H. pylori Ag negative EGD/COLONOSCOPY At the end of November BIOPSY TODAY'S VISIT Upset, on way to ER for SI. The she tried the Linzess but 72 micro g not only did not work but it seemed to make her constipation worse. This is likely because the dose was not high enough so I will escalate her straight to the highest tear of 290 micro g and instruct her that if she has diarrhea to skip a day or 2 in between. I let know that her amylase lipase were normal and that she does not appear to have an H pylori infection causing her ongoing nausea. She is in a hurry to get by her side which is understandable. She continues on her generic Nexium for her GERD and Lakhani's esophagus. She continues on Metamucil and magnesium for constipation and other problems. She also tries to use flaxseed and [place] 6 oils. In the past she has also had Colace available to her. Return office visit in 6 weeks to titrate the Linzess. [facility] Medical History CKD (chronic kidney disease) CLYDE (obstructive sleep apnea) Clostridium difficile infection Lupus Glaucoma History of kidney disease History of sepsis Sleep apnea Hypothyroidism Closed fracture of neck of left femur Breast cancer Fibromyalgia Surgical History Hx of tonsillectomy History of hip surgery History of esophagogastroduodenoscopy (EGD) H/O colonoscopy History of cholecystectomy Family History Father Heart attack Clogged artery (heart) COPD (chronic obstructive pulmonary disease) Mother Stroke Clogged artery (heart) Sister COPD (chronic obstructive pulmonary disease) Brother COPD (chronic obstructive pulmonary disease) Social History Household Members: None Housing: Apartment Housing Other:: fci Patient Tobacco Use Status: Never used Tobacco e-Cigarette/Vaping Use: Never Used Second Hand Smoke Exposure: No service: No Current occupational status: retired Cognitive needs: No Hearing needs: No Vision needs: No Review of Systems Const Denies fatigue, Denies fever(s), Denies night sweats, Reports poor appetite and Denies weight loss Eyes Details: Glasses Reports requires corrective lenses ENT Reports Normal hearing present, Denies dental pain, Denies dysphagia, Denies hearing loss, Denies mouth pain, Denies odynophagia, Denies throat swelling, Denies tongue swelling and Reports other (Dentition adequate) Card Reports no additional complaints Resp Reports no additional complaints GI Denies abdominal pain, Denies melena, Denies bloating, Denies hematochezia, Reports constipation, Denies GI cramping, Denies dysphagia, Denies excessive flatus, Denies early satiety, Reports heartburn, Denies diarrhea, Reports nausea, Denies odynophagia, Denies vomiting and Denies hematemesis Skin/Breast Denies pruritus, Denies lesions, Denies rash and Denies jaundice Neuro Reports Normal hearing present and Denies Abnormal speech present Psych Reports anxiety Endo Denies fatigue Aller/Immun Denies throat swelling and Denies tongue swelling Physical Exam Vital Signs: Last Vital Signs Pulse 70 09/04/23 13:07 BP 177/75 H 09/04/23 13:07 BMI result Body Mass Index 34.3 Const General: cooperative, no acute distress, well developed and well groomed Nutritional Appearance: well nourished and obese Orientation/consciousness: oriented to person, oriented to place and oriented to time Limitations: No language barrier HEENT Head: Yes normocephalic and Yes atraumatic Eyes General: appearance normal, both eyes and all related structures Pupils: Equal, round and reactive pupils present Neck Neck: Yes normal visual inspection and Yes no lymphadenopathy Thyroid: Thyroid normal Resp Effort & Inspection: normal respiratory effort and able to speak in complete sentences Auscultation: clear to auscultation bilaterally Cardio Rate: regular rate Rhythm: regular rhythm Heart sounds: Normal, physiologic split S2 sound present Peripheral pulses: radial pulses present and posterior tibial pulses present GI Inspection: No distended, No Abdominal panniculus present and Yes obesity Palpation (GI): Soft to palpation, nontender, no guarding, not rigid and No hepatosplenomegaly present Percussion: Yes normal to percussion Auscultation: normal bowel sounds Rectal Exam - Female: deferred Skin General skin exam: no rashes or lesions noted, turgor normal, skin not dry, no jaundice, No spider nevi and no striae Rashes: no rashes Nails: normal Neuro General: oriented to person, oriented to place and oriented to time Cranial nerves: Yes Equal, round and reactive pupils present and Yes Normal hearing present Speech: No Abnormal speech present Extrem General: Yes normal to inspection, No clubbing, No cyanosis and No edema Psych Appearance: grossly normal and well kempt Mental Status: mental status grossly normal Speech and movement: Normal speech and movement present Affect: Anxious affect present Attitude: cooperative Thought process: Normal thought process present and not confabulating Thought content: Normal thought content present Insight: Fair insight present (Psych) Judgement: Fair judgement present (Psych) Assessment & Plan Assessment & Plan (1) Chronic idiopathic constipation: Code(s): K59.04 - Chronic idiopathic constipation (2) Nausea and vomiting: Code(s): R11.2 - Nausea with vomiting, unspecified (3) Multiple adenomatous polyps: Code(s): D36.9 - Benign neoplasm, unspecified site (4) Memory loss: Code(s): R41.3 - Other amnesia (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 Apparently, he has a diagnosis of Lewy body dementia and Parkinson's that has been very difficult on him and the family. [facility] is at the [facility]. The she tried the Linzess but 72 micro g not only did not work but it seemed to make her constipation worse. This is likely because the dose was not high enough so I will escalate her straight to the highest tear of 290 micro g and instruct her that if she has diarrhea to skip a day or 2 in between. I let know that her amylase lipase were normal and that she does not appear to have an H pylori infection causing her ongoing nausea. She is in a hurry to get by her side which is understandable. She continues on her generic Nexium for her GERD and Lakhani's esophagus. She continues on Metamucil and magnesium for constipation and other problems. She also tries to use flaxseed and [place] oils. In the past she has also had Colace available to her. Return office visit in 6 weeks to titrate the Linzess Medications: New linaclotide (Linzess) 290 mcg PO QAM 30 days 30 caps 6RF K59.04 - Chronic idiopathic constipation Discontinued linaclotide (Linzess) Discontinued Reason: Doctor's Order 72 mcg PO QAM 30 caps 3RF Coding Level of Care Code Est Pt Level 3 (75537) Diagnoses Chronic idiopathic constipation K59.04 Nausea and vomiting R11.2 Multiple adenomatous polyps D36.9 Memory loss R41.3 Lakhani esophagus K22.70
[2023-09-04 13:07] VITALS: BP 177/75; PULSE 70; BMI 34.3
== END 2023-09-04 13:28 | disposition home or self-care (01) ==
PROVIDERS: PCP Nurse Practitioner Family; Visit Provider Nurse Practitioner
DX: K59.04 Chronic idiopathic constipation (principal); R11.2 Nausea with vomiting, unspecified; D36.9 Benign neoplasm, unspecified site; R41.3 Other amnesia; K22.70 Barrett's esophagus without dysplasia
CPT/HCPCS: 99213

== ENCOUNTER → 2023-09-04 12:57 | Outpatient (BNVA) | payer MEDICARE, SELFPAY | PROVIDERS: PCP Nurse Practitioner Family; Visit Provider Nurse Practitioner | DX: K59.04 Chronic idiopathic constipation (principal); K22.70 Barrett's esophagus without dysplasia; R11.2 Nausea with vomiting, unspecified; R41.3 Other amnesia; D36.9 Benign neoplasm, unspecified site | CPT/HCPCS: 99212 ==

== ENCOUNTER 2023-09-13 13:00 | Outpatient (RCR) | payer MEDICARE, SELFPAY ==
--- NOTE | 2023-08-14 15:06 | MHC.PT.EP ---
[facility] [place] Office [place] Office [place] Office [address] Teetee Pickett [address] [phone] F: [phone] F: [phone] F: [phone] F: [phone] Physical Therapy Plan of Care Date of Evaluation: 08/14/23 Date of Surgery: Diagnosis: This is a 73 yo female presenting to skilled PT with a script for R shoulder joint derangement. Assessment: This is a 73 yo female presenting to skilled PT with a script for R shoulder joint derangement. Patient reporting that her R shoulder has been giving her trouble since caring for her and tore her RTC 50% a while back. She was told that she needed surgery (however due to her needing to care for her she chose to just do PT). She improved with PT however 4 weeks ago she jammed her shoulder and has now had a constant ache throughout her shoulder (can get sharp pains into the hand and her neck as well). Her pain is now worse than it was the first time she injured it. She has been to the orthopedic who referred her to PT (she also had a cortisone injection which did not help). She reports that she cannot sleep and getting dressed, showering, lifting and driving are hard to do. She has been using her LUE to most ADLs, driving and housework. Her son has been assisting with grocery shopping. Assessment reveals pain that ranges from up to a 9/10 at the worst. Patient demos decreased R shoulder and cervical ROM, strength of B shoulder's, TTP at GHJ joint, UT and scapulae as well as bicep and elbow. She demos impaired posture with forward head and rounded shoulders as well as adducted and IR'd positioning on the R. Based on functional limitations, impaired QOL and pain tolerance patient is a good candidate for skilled PT 2x/wk for 6wks. Frequency and Duration: The patient will be seen 2x/wk for 6wks Short Term Goals: (In 2 weeks) Demo I with HEP Improve shoulder AROM by at least 10 degs Demo proper scapular recruitment with postural education, strength and resting positions Report a 25% improvement in sleeping tolerance Group Home Goals: (in 6 wks) Improve shoulder nonpainful AROM to WFL Demo at least 2 grades improvement in MMT for shoulder Improve SPADI by at least 10 points Improve overall functional QOL by at least 50% Treatment Plan: Modalities to reduce pain, spasms and effusion. Manual therapy to restore motion and function. Therapeutic exercise to improve strength and flexibility. Neuromuscular re-education for posture and balance. Therapeutic activities to return to functional activities of daily living. Electronically signed by: Yaz Singh PT Please sign and return to therapist. Thank you for your referral.
--- NOTE | 2023-10-01 13:24 | MHC.PT.DC ---
[employer] [place] Office [place] Office [place] Office [address] Teetee Pickett 140 [facility] [phone] F: [phone] F: [phone] F: [phone] F: [phone] Physical Therapy Discharge Report Diagnosis: This is a 73 yo female presenting to skilled PT with a script for R shoulder joint derangement. Date of Surgery: Date of Evaluation: 08/14/23 Date of Discharge: 10/01/23 Treatments to Date: 9 Cancellations to Date: 0 No Shows to Date: 0 Discharge Status: Physician Discontinued Tx Discharge Summary: Per last tx note: Patient has been plateauing with progress with PT. Plan is to place her on a hold until she gets an MRI and reviews this with the surgeon. She continues to be very limited by pain. She will be undergoing a total shoulder replacement however nothing is scheduled just yet. She sees the surgeon again on 09/26 and she will call me after this appointment. Patient called and is having surgery. PT on hold until after surgery. DC to HEP. Electronically signed by: Yaz Singh PT Please sign and return to therapist. Thank you for your referral.
== END 2023-10-01 13:24 | disposition home or self-care (01) ==
LOC: HO.PTCHIC 13:00
PROVIDERS: PCP Nurse Practitioner Family; Visit Provider Orthopaedic Surgery
DX: M24.811 Other specific joint derangements of right shoulder, not elsewhere classified (principal); R26.9 Unspecified abnormalities of gait and mobility
CPT/HCPCS: 97110; 97140; 97162

== ENCOUNTER 2023-09-18 13:05 | Outpatient (AMB) | payer MEDICARE, SELFPAY ==
[2023-09-18 13:19] VITALS: BP 140/72; PULSE 81; O2SAT 98; BMI 34.8
--- NOTE | 2023-09-18 13:19 | MHC.PC.OV ---
Vital Signs 09/18/23 13:19 Height 5 ft 6 in Weight 215 lb 6 oz BMI 34.8 BP 140/72 H Blood Pressure Location Lt brachial Position Sitting Pulse 81 Pulse Source Pulse Oximeter Pulse Oximetry (%) 98 Oxygen Delivery Method Room Air Intake Visit Reasons: 4 month follow up Intake Note: Pt is here to follow for her labs Allergies adhesive Allergy (Severe, Verified 09/18/23 17:11) Hives ondansetron [From ZOFRAN ( HYDROCHLORIDE)] Allergy (Unknown, Verified 09/18/23 17:11) ANAPHYLAXIS Medication List - Last Reconciled 09/18/23 by Tushar Arroyo, POLYSOMNOGRAPHIC TECHNOLOGIST-BC aspirin 81 mg PO DAILY atorvastatin 20 mg PO BEDTIME bupropion HCl 300 mg PO DAILY Ca-D3-mag me-kdty-meg-matt-bor 600 mg calcium- 20 mcg-50 mg (Calcium 600-D3 Plus (mag-zinc)) 1 tab PO DAILY clonazepam 0.5 mg PO TID PRN 30 days cranberry conc-ascorbic acid 4,200-20 mg 20 caps PO DAILY cyanocobalamin (vitamin B-12) 1,000 mcg PO DAILY docusate sodium 50 mg PO DAILY PRN ergocalciferol (vitamin D2) 1,250 mcg PO QMONTH esomeprazole magnesium (Nexium) 40 mg PO DAILY flaxseed oil-omega 3,6,9 1,300 mg-845 mg -117 mg-117 mg 1 cap PO DAILY gabapentin 300 mg PO BEDTIME levothyroxine 112 mcg PO DAILY linaclotide (Linzess) 290 mcg PO QAM 30 days mirabegron ER (Myrbetriq) 50 mg PO DAILY raloxifene 60 mg PO DAILY sod sulf-pot chloride-mag sulf 1.479-0.188- 0.225 gram (Sutab) PO PER PKG DIR trazodone 100 mg PO BEDTIME vitamin B complex 1 cap PO DAILY Tobacco use date assessed: 09/18/23 Fall risk assessment: 2 + Falls in past year Last assessed Fall Risk: 09/18/23 Dental Screening Dental Screen Date: 09/18/23 Did you have a dental visit in the last 12 months?: Yes Did you have a dental problem in the last 6 months where you did not have access to dental care?: No Was dental information given to patient?: Patient has dentist HPI 4 month follow up HPI Details Pt reports falling multiple times at home, most recently on Saturday. 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 Will give pt phone number to [facility] due to ongoing pains, for a home eval, see if some assistance around the house can be provided. Pt has a right rotator cuff tear. She is seeing [facility] for this and her osteoarthritis. Pt plans to have a shoulder replacement. She is going to PT as well. Denies fever, chills, and dizziness. [facility] Medical History CKD (chronic kidney disease) CLYDE (obstructive sleep apnea) Clostridium difficile infection Lupus Glaucoma History of kidney disease History of sepsis Sleep apnea Hypothyroidism Closed fracture of neck of left femur Breast cancer Fibromyalgia Surgical History Hx of tonsillectomy History of hip surgery History of esophagogastroduodenoscopy (EGD) H/O colonoscopy History of cholecystectomy Family History Father Heart attack Clogged artery (heart) COPD (chronic obstructive pulmonary disease) Mother Stroke Clogged artery (heart) Sister COPD (chronic obstructive pulmonary disease) Brother COPD (chronic obstructive pulmonary disease) Social History Household Members: None Housing: Apartment Housing Other:: long term Patient Tobacco Use Status: Never used Tobacco e-Cigarette/Vaping Use: Never Used Second Hand Smoke Exposure: No service: No Current occupational status: retired Cognitive needs: No Hearing needs: No Vision needs: No Questionnaire Thrive Questionnaire Date Thrive assessed: 05/29/23 SEEMA-7 AMB Questionnaire SEEMA-7 Date SEEMA - 7 assessed: 05/29/23 Source: Developed by Drs. David Perez, Carole Michelle, Virgil Harris and colleagues, with an educational gifty from [employer]. Physical exam (Primary Care) Vital Signs: Last Vital Signs Pulse 81 09/18/23 13:19 BP 140/72 H 09/18/23 13:19 Pulse Ox 98 09/18/23 13:19 Oxygen Delivery Method Room Air 09/18/23 13:19 BMI result Body Mass Index 34.8 Tobacco/Smoking Status: Tobacco use Status Tobacco use date assessed 09/18/23 09/18/23 13:28 Patient Tobacco Use Status Never used Tobacco 09/18/23 13:25 e-Cigarette/Vaping Use Never Used 09/18/23 13:25 Thrive Assessment: Date of Thrive Assessment Date Thrive assessed 05/29/23 09/18/23 13:25 Resp Effort & Inspection: normal respiratory effort Auscultation: clear to auscultation bilaterally Cardio Rate: regular rate Rhythm: regular rhythm Heart sounds: S1 normal heart sound present, S2 normal heart sound present and Murmur heart sound present systolic (faint) Extrem Other: very limited ROM to RUE though moving it, difficulty with shoulder flexion, able to flex and extend elbow Assessment and Plan Assessment & Plan (1) Osteoarthritis: Code(s): M19.90 - Unspecified osteoarthritis, unspecified site (2) Right shoulder pain: Code(s): M25.511 - Pain in right shoulder Plan The patient agreed to the use of a director global medical affairs for this encounter. Scribed for URBANO Rebolledo by Sondra Will director global medical affairs, on 09/18/2023 at 13:55 EST. Orders: [facility]errals [facility] Referral M19.90 - Unspecified osteoarthritis, unspecified site Medications: New bupropion HCl 300 mg PO DAILY 30 tabs 0RF Coding Level of Care Code Est Pt Level 3 (68056) Diagnoses Osteoarthritis M19.90 Right shoulder pain M25.511
== END 2023-09-18 14:38 | disposition home or self-care (01) ==
PROVIDERS: Visit Provider Nurse Practitioner Family
DX: M19.90 Unspecified osteoarthritis, unspecified site (principal); M25.511 Pain in right shoulder
CPT/HCPCS: 99213

== ENCOUNTER → 2023-10-16 12:34 | Outpatient (BNVA) | payer MEDICARE, SELFPAY | PROVIDERS: PCP Nurse Practitioner Family; Visit Provider Nurse Practitioner | DX: K59.04 Chronic idiopathic constipation (principal); K22.70 Barrett's esophagus without dysplasia; D36.9 Benign neoplasm, unspecified site | CPT/HCPCS: 99212 ==

== ENCOUNTER 2023-10-18 10:51 | Outpatient (AMB) | payer MEDICARE, SELFPAY ==
--- NOTE | 2023-10-18 10:52 | MHC.PC.OV ---
Vital Signs 10/18/23 10:54 10/18/23 11:35 Height 5 ft 6 in Weight 212 lb 8 oz BMI 34.3 BP 140/76 H 128/74 Blood Pressure Location Lt brachial Lt brachial Position Sitting Pulse 85 Pulse Source Pulse Oximeter Pulse Oximetry (%) 96 Oxygen Delivery Method Room Air Intake Visit Reasons: Preop-R shoulder rotator cuff. EKG&CBC Intake Note: Pt is here for a Pre-op right rotator cuff surgery at [facility] adhesive Allergy (Severe, Verified 10/18/23 11:20) Hives ondansetron [From ZOFRAN ( HYDROCHLORIDE)] Allergy (Unknown, Verified 10/18/23 11:20) ANAPHYLAXIS Medication List - Last Reconciled 10/18/23 by DA Barreto aspirin 81 mg PO DAILY atorvastatin 20 mg PO BEDTIME bisacodyl (Dulcolax (bisacodyl)) 10 mg (2 x 5 mg) PO BEDTIME 30 days bupropion HCl 300 mg PO DAILY Ca-D3-mag gp-pnnd-nsc-matt-bor 600 mg calcium- 20 mcg-50 mg (Calcium 600-D3 Plus (mag-zinc)) 1 tab PO DAILY clonazepam 0.5 mg PO TID PRN 30 days cranberry conc-ascorbic acid 4,200-20 mg 20 caps PO DAILY docusate sodium 50 mg PO DAILY PRN esomeprazole magnesium (Nexium) 40 mg PO DAILY flaxseed oil-omega 3,6,9 1,300 mg-845 mg -117 mg-117 mg 1 cap PO DAILY gabapentin 300 mg PO BEDTIME levothyroxine 112 mcg PO DAILY linaclotide (Linzess) 290 mcg PO QAM 30 days mirabegron ER (Myrbetriq) 50 mg PO DAILY raloxifene 60 mg PO DAILY sod sulf-pot chloride-mag sulf 1.479-0.188- 0.225 gram (Sutab) PO PER PKG DIR trazodone 100 mg PO BEDTIME vitamin B complex 1 cap PO DAILY Tobacco use date assessed: 10/18/23 Fall risk assessment: 2 + Falls in past year Last assessed Fall Risk: 10/18/23 Dental Screening Dental Screen Date: 10/18/23 Did you have a dental visit in the last 12 months?: Yes Did you have a dental problem in the last 6 months where you did not have access to dental care?: No Was dental information given to patient?: Patient has dentist HPI HPI Comments History of Present Illness Details The patient is a 73-year-old female in today for preop clearance. She is scheduled to have surgery on the right shoulder for rotator cuff repair. She has a past medical history significant for sleep apnea, hypothyroidism, fibromyalgia, and hyperlipidemia. She will have on in office EKG and will get labs drawn, specifically a CBC, per request from [facility]. Patient denies recent fever, dizziness, numbness, chest pain, shortness a breath, nausea, vomiting, diarrhea. EKG in office normal sinus rhythm. Will draw CBC and BNP. Patient has been instructed to withhold aspirin and NSAIDS 5 days prior to surgery. The procedure is scheduled for 10/28/2023, 10 days from today. COUNT INCLUDES THE [facility] Medical History Right shoulder pain Nausea and vomiting Pre-op examination History of breast cancer Skin lesions Screening for lipid disorders Bilateral knee pain Irritable bowel syndrome with constipation Screening for colon cancer Physical exam History of sepsis CKD (chronic kidney disease) CLYDE (obstructive sleep apnea) Clostridium difficile infection Lupus Glaucoma History of kidney disease Sleep apnea Hypothyroidism Closed fracture of neck of left femur Breast cancer Fibromyalgia Surgical History Hx of tonsillectomy History of hip surgery History of esophagogastroduodenoscopy (EGD) H/O colonoscopy History of cholecystectomy Family History Father Heart attack Clogged artery (heart) COPD (chronic obstructive pulmonary disease) Mother Stroke Clogged artery (heart) Sister COPD (chronic obstructive pulmonary disease) Brother COPD (chronic obstructive pulmonary disease) Social History Household Members: None Housing: Apartment Housing Other:: [facility] Patient Tobacco Use Status: Never used Tobacco e-Cigarette/Vaping Use: Never Used Second Hand Smoke Exposure: No service: No Current occupational status: retired Cognitive needs: No Hearing needs: No Vision needs: No Questionnaire Thrive Questionnaire Date Thrive assessed: 05/29/23 SEEMA-7 AMB Questionnaire SEEMA-7 Date SEEMA - 7 assessed: 05/29/23 Source: Developed by Drs. David Perez, Carole Michelle, Virgil Harris and colleagues, with an educational gifty from [employer]. Review of Systems Const Details: Constitutional : No Weight loss, No Fever, No Chills, No Fatigue, No Malaise ENT/Mouth : No sore throat, No Rhinorrhea Eyes: No Eye Pain, No Swelling, No Redness Cardiovascular : No Chest Pain, No SOB, No Dyspnea on Exertion, No Orthopnea, No Edema, No Palpitations Respiratory : No Cough, No Sputum, No Wheezing Gastrointestinal : No Nausea, No Vomiting, No Diarrhea, No Constipation, No abdominal Pain, No Hematochezia, No Melena Genitourinary : No Dysuria, No Urinary Frequency, No Hematuria, Musculoskeletal : Admits Right shoulder pain. Skin : No Skin Lesions, No rash Neuro : No Weakness, No Numbness, No Dizziness, No Headache Psych : No Anxiety/Panic, No Depression Heme/Lymph: No Bruising, No Bleeding,No Lymphadenopathy Endocrine : No Polyuria, No Polydipsia All other systems reviewed and are negative Physical exam (Primary Care) Vital Signs: Last Vital Signs Pulse 85 10/18/23 10:54 BP 128/74 10/18/23 11:35 Pulse Ox 96 10/18/23 10:54 Oxygen Delivery Method Room Air 10/18/23 10:54 Care Plan Goal for BP management: Blood pressure remeasured in office new value 128/74 BMI result Body Mass Index 34.3 Tobacco/Smoking Status: Tobacco use Status Tobacco use date assessed 10/18/23 10/18/23 11:04 Patient Tobacco Use Status Never used Tobacco 10/18/23 10:52 e-Cigarette/Vaping Use Never Used 10/18/23 10:52 Thrive Assessment: Date of Thrive Assessment Date Thrive assessed 05/29/23 10/18/23 10:52 Const Other: Appearance: Alert.? Oriented X3.? No acute distress.? Eyes: Pupils equal, round and reactive to light.? Neck: Normal inspection.? Neck supple. Full ROM? CVS: Normal heart rate and rhythm.? Pulses normal.?faint systolic murmur. Respiratory: No respiratory distress.? Breath sounds normal.? Skin: Skin warm and dry.? Normal skin color.? Normal skin turgor.? Extremities: Patient has known torn rotator cuff of right shoulder. Neuro: Oriented X 3.? No motor deficit.? No sensory deficit. CN 2-12 intact Office Procedures EKG [id number], Complete Results Reviewed Results Reviewed: EKG in office normal sinus rhythm normal EKG. Assessment and Plan Assessment & Plan (1) Preoperative clearance: Comment: Patient is having a right rotator cuff repair surgery at [facility]. Patient had in office EKG which was normal sinus rhythm. Patient has stable vital signs. Patient has been instructed to withhold aspirin and NSAIDs 5 days prior to surgery. Patient will get BMP and CBC. Will fax results to surgeons. Code(s): Z01.818 - Encounter for other preprocedural examination Plan: When blood test results return fax results to surgeons (2) Right rotator cuff tear: Comment: Patient is here with right rotator cuff tear. To receive preoperative clearance. Patient has surgical procedure on the of this month Code(s): M75.101 - Unspecified rotator cuff tear or rupture of right shoulder, not specified as traumatic Qualifiers: Rotator cuff tear extent: complete Rotator cuff tear trauma status: unspecified whether traumatic Qualified Code(s): M75.121 - Complete rotator cuff tear or rupture of right shoulder, not specified as traumatic Orders: Orders AMB EKG-In Office Today Z01.818 - Encounter for other preprocedural examination Basic Metabolic Panel Today Z01.818 - Encounter for other preprocedural examination Coding Level of Care Code Est Pt Level 3 (59255) Diagnoses Preoperative clearance Z.818 Complete tear of right rotator cuff, unspecified whether traumatic M75.121 Rotator cuff tear extent: complete Rotator cuff tear trauma status: unspecified whether traumatic CPT Codes EKG - CPT: 85680-[id number], Complete ([id number]) Time Spent (min) 25
[2023-10-18 10:54] VITALS: BP 140/76; PULSE 85; O2SAT 96; BMI 34.3
[2023-10-18 11:35] VITALS: BP 128/74
== END 2023-10-18 12:21 | disposition home or self-care (01) ==
PROVIDERS: PCP Nurse Practitioner Primary Care; Visit Provider Nurse Practitioner Primary Care
DX: M75.121 Complete rotator cuff tear or rupture of right shoulder, not specified as traumatic (principal); Z01.818 Encounter for other preprocedural examination
CPT/HCPCS: 93000; 99213

== ENCOUNTER 2023-10-18 11:41 | Outpatient (REF) | payer MEDICARE, SELFPAY ==
[2023-10-18 13:31] LABS: MANUAL DIFF FLAG NO
[2023-10-18 13:48] LABS: Basophils Absolute Auto 0.1 X10*3/uL (0.0-0.2); Basophils Percent Auto 0.7 % (0-2); Eosinophils Absolute Auto 0.4 X10*3/uL (0.0-0.4); Eosinophils Percent Auto 5.1 % (0-4); Hematocrit 42.1 % (37.0-47.0); Hemoglobin 13.8 g/dl (12.0-16.0); Imm Gran Abs Auto 0.01 X10*3/uL (0.00-0.03); Imm Gran Pct Auto 0.1 % (0.0-0.4); Lymphocytes Absolute Auto 1.4 X10*3/uL (1.2-4.9); Lymphocytes Percent Auto 20.1 % (20-40); Mean Corpuscular HGB Conc 32.8 g/dl (31.0-35.0); Mean Corpuscular Volume 85.6 fL (80.0-98.0); Mean Platelet Volume 11.3 fL (9.4-12.3); Monocytes Absolute Auto 0.6 X10*3/uL (0.1-1.2); Monocytes Percent Auto 8.2 % (2-11); Neutrophils Absolute Auto 4.5 x10*3/uL (2.0-8.3); Neutrophils Percent Auto 65.8 % (45-73); Platelet Count 175 X10*3/uL (160-400); Red Blood Count 4.92 X10*6/uL (4.20-5.50); Red Cell Distribution Width 14.6 % (11.0-16.0); White Blood Count 6.8 X10*3/uL (4.8-10.8)
[2023-10-18 14:23] LABS: Anion Gap 13 (12-20); Blood Urea Nitrogen 19 mg/dL (9-16); Calcium 9.8 mg/dL (8.4-10.2); Carbon Dioxide 25 mmol/L (22-29); Chloride 109 mmol/L (96-108); Estimated Glomerular Filt Rate > 60; Glucose Random 97 mg/dL (60-115); Potassium 4.3 mmol/L (3.3-5.1); Sodium 143 mmol/L (135-145)
== END 2023-10-18 11:42 | disposition home or self-care (01) ==
LOC: HO.HMGCLDS 11:41
PROVIDERS: PCP Nurse Practitioner Family; Visit Provider Nurse Practitioner Primary Care
DX: Z01.818 Encounter for other preprocedural examination (principal)
CPT/HCPCS: 36415; 80048; 85025

== ENCOUNTER 2023-11-13 11:54 | Outpatient (AMB) | payer MEDICARE, SELFPAY ==
--- NOTE | 2023-11-13 11:59 | A.OFFVIS_ITS ---
Intake Vital Signs 11/13/23 12:18 Height 5 ft 6 in Weight 204 lb BMI 32.9 BP 155/61 H Blood Pressure Location Lt brachial Position Sitting Pulse 90 Intake Visit Reasons: follow up Intake Note: Reema presents in the office as a 6 week follow up. CC: She states she had to cut the laxative to one instead of two because she had about 6 days or watery diarrhea when she was taking 2 a day. She c/o nausea all the time. 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 He started to calm down after he arrived at the ER. He does not want to go there again! She continues on her generic Nexium for her GERD and Lakhani's esophagus.She continues on Metamucil and magnesium for constipation and other problems. She also tries to use flaxseed and [place] 6 oils. In the past she has also had Colace available to her. She is doing better on the Linzess 290mcg, but she still does not have a BM every day, about every other day but at least it is more than once a week. She also does not have the BM at a predictable time, it occurs much later than when she takes the pill. So, I think we need to do better to promote more normal BM's, so we will add bisacodyl qhs 1-2 tablets. We will have to be careful since she already has fecal urgency when the bowel movement does finally decide to progress, but this does not occur at any predictable timing interval. She will be having shoulder surgery at the end of the month, so we will try to get this improved before this. i advised her that the anesthesia etc could complicate her BM's. ROV late next week. EGD/COLONOSCOPY Scheduled for 12/06/2023 BIOPSY Medications: New bisacodyl (Dulcola x (bisacodyl)) 10 mg (2 x 5 mg) P O BEDTIME 30 days 60 tabs 6RF esomeprazole magne sium (Nexium) 40 mg PO DAILY 30 caps 6RF TODAY'S VISIT She did receive the bisacodyl which she calls ?light laxative? because that is how it is labeled but she found that taking 2 of them gave her straight water. She is taking 1 at night along with her Linzess 290. This is helping her empty out a bit more in the morning but she can still have several bowel movements and still has no warning with her bowel movements in the middle of the day. At least she has not having severely hard small rabbit pellet-like stools at this time. She has a new problem of a severe lack of appetite along with her chronic nausea. She is found her appetite severely reduced since she last saw me and she really does not know why. Her nausea has been chronic. She really struggles to eat sweet which historically she really was fond of. I think we need to get a gastric emptying study I am really not sure what is going on here. There been no new medicines, she did stop 2 of her medications my fiber tack and raloxifene, but she stopped these after the appetite loss presented. She has an upcoming EGD and colonoscopy which I think is prudent. I am also going to add a gastric emptying study. [facility] Medical History Right shoulder pain Nausea and vomiting Pre-op examination History of breast cancer Skin lesions Screening for lipid disorders Bilateral knee pain Irritable bowel syndrome with constipation Screening for colon cancer Physical exam History of sepsis CKD (chronic kidney disease) CLYDE (obstructive sleep apnea) Clostridium difficile infection Lupus Glaucoma History of kidney disease Sleep apnea Hypothyroidism Closed fracture of neck of left femur Breast cancer Fibromyalgia Surgical History Hx of tonsillectomy History of hip surgery History of esophagogastroduodenoscopy (EGD) H/O colonoscopy History of cholecystectomy Family History Father Heart attack Clogged artery (heart) COPD (chronic obstructive pulmonary disease) Mother Stroke Clogged artery (heart) Sister COPD (chronic obstructive pulmonary disease) Brother COPD (chronic obstructive pulmonary disease) Social History Household Members: None Housing: Apartment Housing Other:: [facility] Patient Tobacco Use Status: Never used Tobacco e-Cigarette/Vaping Use: Never Used Second Hand Smoke Exposure: No service: No Current occupational status: retired Cognitive needs: No Hearing needs: No Vision needs: No Review of Systems Const Denies fatigue, Denies fever(s), Denies night sweats, Denies poor appetite and Denies weight loss Eyes Details: glasses Reports requires corrective lenses ENT Reports Normal hearing present, Denies dental pain, Denies dysphagia, Denies hearing loss, Denies mouth pain, Denies odynophagia, Denies throat swelling, Denies tongue swelling and Reports other (Dentition adequate) Card Reports no additional complaints Resp Reports no additional complaints GI Details: Denies abdominal pain, Denies melena, Denies bloating, Denies hematochezia, Reports constipation, Denies GI cramping, Denies dysphagia, Denies excessive flatus, Reports early satiety, Reports heartburn, Denies diarrhea, Reports nausea, Denies odynophagia, Denies vomiting, Denies hematemesis and Reports other (Fecal urgency lack of warning when she needs to move her bowels) Musc Reports arthralgias and Reports limited range of motion Skin/Breast Denies pruritus, Denies lesions, Denies rash and Denies jaundice Neuro Reports Normal hearing present and Denies Abnormal speech present Endo Denies fatigue Aller/Immun Denies throat swelling and Denies tongue swelling Physical Exam Vital Signs: Last Vital Signs Pulse 90 11/13/23 12:18 BP 155/61 H 11/13/23 12:18 BMI result Body Mass Index 32.9 Const General: cooperative, no acute distress, well developed and well groomed Nutritional Appearance: well nourished and obese Orientation/consciousness: oriented to person, oriented to place and oriented to time Limitations: No language barrier HEENT Head: Yes normocephalic and Yes atraumatic Eyes General: appearance normal, both eyes and all related structures Pupils: Equal, round and reactive pupils present Neck Neck: Yes normal visual inspection and Yes no lymphadenopathy Thyroid: Thyroid normal Resp Effort & Inspection: normal respiratory effort and able to speak in complete sentences Auscultation: clear to auscultation bilaterally Cardio Rate: regular rate Rhythm: regular rhythm Heart sounds: Normal, physiologic split S2 sound present Peripheral pulses: radial pulses present and posterior tibial pulses present GI Inspection: No distended, No Abdominal panniculus present and Yes obesity Palpation (GI): Soft to palpation, nontender, no guarding, not rigid and No hepatosplenomegaly present Percussion: Yes normal to percussion Auscultation: normal bowel sounds Rectal Exam - Female: deferred Skin General skin exam: no rashes or lesions noted, turgor normal, skin not dry, no jaundice, No spider nevi and no striae Rashes: no rashes Nails: normal Neuro General: oriented to person, oriented to place and oriented to time Cranial nerves: Yes Equal, round and reactive pupils present and Yes Normal hearing present Speech: No Abnormal speech present Extrem General: Yes normal to inspection, No clubbing, No cyanosis and No edema Psych Appearance: grossly normal and well kempt Mental Status: mental status grossly normal Speech and movement: Normal speech and movement present Affect: normal affect Attitude: cooperative Thought process: Normal thought process present and not confabulating Thought content: Normal thought content present Insight: Limited insight present (Psych) Judgement: Limited judgement present (Psych) Assessment & Plan Assessment & Plan (1) Chronic idiopathic constipation: Code(s): K59.04 - Chronic idiopathic constipation (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 because that is how it is labeled but she found that taking 2 of them gave her straight water. She is taking 1 at night along with her Linzess 290. This is helping her empty out a bit more in the morning but she can still have several bowel movements and still has no warning with her bowel movements in the middle of the day. At [facility] she has not having severely hard small rabbit pellet-like stools at this time. She has a new problem of a severe lack of appetite along with her chronic nausea. She is found her appetite severely reduced since she last saw me and she really does not know why. Her nausea has been chronic. She really struggles to eat sweet which historically she really was fond of. I think we need to get a gastric emptying study I am really not sure what is going on here. There been no new medicines, she did stop 2 of her medications my fiber tack and raloxifene, but she stopped these after the appetite loss presented. She has an upcoming EGD and colonoscopy which I think is prudent. I am also going to add a gastric emptying study. Orders: Orders NM gastric emptying study Today R11.2 - Nausea with vomiting, unspecified Coding Level of Care Code Est Pt Level 3 (07140) Diagnoses Chronic idiopathic constipation K59.04 Lakhani esophagus K22.70 Multiple adenomatous polyps D36.9 Early satiety R68.81 Nausea R11.0
[2023-11-13 12:18] VITALS: BP 155/61; PULSE 90; BMI 32.9
== END 2023-11-13 13:27 | disposition home or self-care (01) ==
PROVIDERS: PCP Nurse Practitioner Family; Visit Provider Nurse Practitioner
DX: K59.04 Chronic idiopathic constipation (principal); K22.70 Barrett's esophagus without dysplasia; D36.9 Benign neoplasm, unspecified site; R68.81 Early satiety; R11.0 Nausea
CPT/HCPCS: 99213

== ENCOUNTER → 2023-11-13 11:54 | Outpatient (BNVA) | payer MEDICARE, SELFPAY | PROVIDERS: PCP Nurse Practitioner Family; Visit Provider Nurse Practitioner | DX: K59.04 Chronic idiopathic constipation (principal); K22.70 Barrett's esophagus without dysplasia; D36.9 Benign neoplasm, unspecified site; R68.81 Early satiety; R11.0 Nausea | CPT/HCPCS: 99212 ==

== ENCOUNTER 2023-12-18 13:57 | Outpatient (AMB) | payer MEDICARE, SELFPAY ==
[2023-12-18 14:18] VITALS: BP 130/74; PULSE 82; O2SAT 97; BMI 33.7
--- NOTE | 2023-12-18 14:18 | A.OFFPC_ITS ---
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 Accompanied by: Self / Same As Patient Allergies adhesive Allergy (Severe, Verified 12/18/23 17:14) Hives ondansetron [From ZOFRAN ( HYDROCHLORIDE)] Allergy (Unknown, Verified 12/18/23 17:14) ANAPHYLAXIS Medication List - Last Reconciled 12/18/23 by Tushar Arroyo, [facility]- aspirin 81 mg PO DAILY atorvastatin 20 mg PO BEDTIME bisacodyl (Dulcolax (bisacodyl)) 10 mg (2 x 5 mg) PO BEDTIME 30 days bupropion HCl 300 mg PO DAILY Ca-D3-mag nu-xnxw-uxu-matt-bor 600 mg calcium- 20 mcg-50 mg (Calcium 600-D3 Plus (mag-zinc)) 1 tab PO DAILY clonazepam 0.5 mg PO TID PRN 30 days cranberry conc-ascorbic acid 4,200-20 mg 20 caps PO DAILY docusate sodium 50 mg PO DAILY PRN esomeprazole magnesium (Nexium) 40 mg PO DAILY flaxseed oil-omega 3,6,9 1,300 mg-845 mg -117 mg-117 mg 1 cap PO DAILY gabapentin 300 mg PO BEDTIME levothyroxine 112 mcg PO DAILY linaclotide (Linzess) 290 mcg PO QAM 30 days sod sulf-pot chloride-mag sulf 1.479-0.188- 0.225 gram (Sutab) PO PER PKG DIR trazodone 100 mg PO BEDTIME vitamin B complex 1 cap PO DAILY Tobacco use date assessed: 10/18/23 Fall risk assessment: 2 + Falls in past year Last assessed Fall Risk: 12/18/23 Dental Screening Dental Screen Date: 12/18/23 Did you have a dental visit in the last 12 months?: Yes Did you have a dental problem in the last 6 months where you did not have access to dental care?: No Was dental information given to patient?: Patient has dentist HPI 3 month follow up HPI Details Pt c/o restless leg. She reports that she struggles to sleep at night due to this. Will order iron studies before treating. Pt c/o chronic cough. She reports that this started 2 years ago after having COVID. Will order chest CT. Denies chest pain, shortness of breath, excessive mucous, and dizziness. Pt underwent shoulder surgery 3 weeks ago. She is currently in a bulky sling. [facility] Medical History Right shoulder pain Nausea and vomiting Pre-op examination History of breast cancer Skin lesions Screening for lipid disorders Bilateral knee pain Irritable bowel syndrome with constipation Screening for colon cancer Physical exam History of sepsis CKD (chronic kidney disease) CLYDE (obstructive sleep apnea) Clostridium difficile infection Lupus Glaucoma History of kidney disease Sleep apnea Hypothyroidism Closed fracture of neck of left femur Breast cancer Fibromyalgia Surgical History Hx of tonsillectomy History of hip surgery History of esophagogastroduodenoscopy (EGD) H/O colonoscopy History of cholecystectomy Family History Father Heart attack Clogged artery (heart) COPD (chronic obstructive pulmonary disease) Mother Stroke Clogged artery (heart) Sister COPD (chronic obstructive pulmonary disease) Brother COPD (chronic obstructive pulmonary disease) Social History Household Members: None Housing: Apartment Housing Other:: long term Patient Tobacco Use Status: Never used Tobacco e-Cigarette/Vaping Use: Never Used Second Hand Smoke Exposure: No service: No Current occupational status: retired Cognitive needs: No Hearing needs: No Vision needs: No Questionnaire PHQ-9 Over the last 2 weeks, how often have you been bothered by any of the following problems? 1. Little interest or pleasure in doing things: not at all 2. Feeling down, depressed, or hopeless: not at all 3. Trouble falling or staying asleep, or sleeping too much: nearly every day 4. Feeling tired or having little energy: more than half the days 5. Poor appetite or overeating: several days 6. Feeling bad about yourself - or that you are a failure or have let yourself or your family down: not at all 7. Trouble concentrating on things, such as reading the newspaper or watching television: not at all 8. Moving or speaking so slowly that other people could have noticed. Or the opposite - being so fidgety or restless that you have been moving around a lot more than usual: not at all 9. Thoughts that you would be better off or of hurting yourself in some way: not at all Total score: 6 Depression Screening Interpretation: Negative Depression Screening Done: Yes 23919 - PHQ-9 Billing: Yes Source: Developed by Drs. David Perez, Carole Michelle, Virgil Harris and colleagues, with an educational gifty from [employer]. Thrive Questionnaire Date Thrive assessed: 05/29/23 AUDIT C Alcohol Use Questionnaire (AUDIT-C) 1. How often do you have a drink containing alcohol?: Never Total Score: 0 Score Reviewed/Action Taken: Yes SEEMA-7 AMB Questionnaire SEEMA-7 Date SEEMA - 7 assessed: 12/18/23 Feeling nervous, anxious, or on edge: 1 = Several days Not being able to stop or control worryin = Several days Worrying too much about different things: 1 = Several days Trouble relaxin = Several days Being so restless that it is hard to sit still: 0 = Not at all Becoming easily annoyed or irritable: 0 = Not at all Feeling afraid as if something awful might happen: 0 = Not at all Total SEEMA-7 score (0-4 normal; 5-9 mild; 10-14 moderate; 15-21 severe): 4 Source: Developed by Drs. David Perez, Carole Michelle, Virgil Harris and colleagues, with an educational gifty from [employer]. SEEMA-7 Assessment Billing SEEMA-7 Assessment Tool: SEEMA-7 Assessment 37837 Review of Systems Const Reports as per HPI Physical exam (Primary Care) Vital Signs: Last Vital Signs Pulse 82 12/18/23 14:18 BP 130/74 12/18/23 14:18 Pulse Ox 97 12/18/23 14:18 Oxygen Delivery Method Room Air 12/18/23 14:18 BMI result Body Mass Index 33.7 Tobacco/Smoking Status: Tobacco use Status Tobacco use date assessed 10/18/23 12/18/23 14:26 Patient Tobacco Use Status Never used Tobacco 12/18/23 14:26 e-Cigarette/Vaping Use Never Used 12/18/23 14:26 PHQ-9: PHQ-9 Score PHQ-9: Total score 6 12/18/23 17:11 Depression Screening Interpretation: Negative Thrive Assessment: Date of Thrive Assessment Date Thrive assessed 05/29/23 12/18/23 14:26 Const General: cooperative Nutritional Appearance: obese Orientation/consciousness: patient oriented x3 Resp Effort & Inspection: normal respiratory effort Auscultation: clear to auscultation bilaterally Cardio Rate: regular rate Rhythm: regular rhythm Heart sounds: S1 normal heart sound present and S2 normal heart sound present Neuro General: patient oriented x3 Extrem Other: RUE in bulky sling Psych Appearance: grossly normal Mental Status: mental status grossly normal Speech and movement: Normal speech and movement present Affect: normal affect Attitude: cooperative Thought process: Normal thought process present Thought content: Normal thought content present Insight: Good insight present (Psych) Judgement: Good judgement present (Psych) Assessment and Plan Assessment & Plan (1) Restless leg syndrome: Code(s): G25.81 - Restless legs syndrome Plan: Labs ordered, may start medication for this, depending on lab results Plan The patient agreed to the use of a senior medical transcriptionist for this encounter. Scribed for URBANO Rebolledo by Sondra Will senior medical transcriptionist, on 12/18/2023 at 14:35 EST. Orders: Orders Complete Blood Count Auto Diff Today G25.81 - Restless legs syndrome IRON PROFILE Today G25.81 - Restless legs syndrome CT chest wo IV con Today R05.3 - Chronic cough Comprehensive Met. Panel Today G25.81 - Restless legs syndrome TSH reflex Free T4 Today G25.81 - Restless legs syndrome Ferritin Today G25.81 - Restless legs syndrome Coding Level of Care Code Est Pt Level 3 (96729) Diagnoses Restless leg syndrome G25.81 Additional Codes SEEMA-7 Assessment Billing - SEEMA-7 Assessment Tool: SEEMA-7 Assessment 32306 ([id number])
== END 2023-12-18 14:51 | disposition home or self-care (01) ==
PROVIDERS: PCP Nurse Practitioner Family; Visit Provider Nurse Practitioner Family
DX: G25.81 Restless legs syndrome (principal)
CPT/HCPCS: 99213

== ENCOUNTER 2023-12-18 14:57 | Outpatient (REF) | payer MEDICARE, SELFPAY ==
[2023-12-18 16:29] LABS: Basophils Percent Auto 0.5 % (0-2); Eosinophils Absolute Auto 0.2 X10*3/uL (0.0-0.4); Eosinophils Percent Auto 2.6 % (0-4); Hematocrit 41.8 % (37.0-47.0); Hemoglobin 13.6 g/dl (12.0-16.0); Imm Gran Abs Auto 0.02 X10*3/uL (0.00-0.03); Imm Gran Pct Auto 0.3 % (0.0-0.4); Lymphocytes Absolute Auto 1.8 X10*3/uL (1.2-4.9); Lymphocytes Percent Auto 23.2 % (20-40); MANUAL DIFF FLAG SCAN; Mean Corpuscular HGB Conc 32.5 g/dl (31.0-35.0); Mean Corpuscular Hemoglobin 28.4 pg (27.0-33.0); Mean Corpuscular Volume 87.3 fL (80.0-98.0); Mean Platelet Volume 11.1 fL (9.4-12.3); Monocytes Absolute Auto 0.6 X10*3/uL (0.1-1.2); Monocytes Percent Auto 7.9 % (2-11); Neutrophils Absolute Auto 5.1 x10*3/uL (2.0-8.3); Neutrophils Percent Auto 65.5 % (45-73); PLT CLUMP 1; Red Blood Count 4.79 X10*6/uL (4.20-5.50); Red Cell Distribution Width 14.8 % (11.0-16.0); SCAN SMEAR FLAG 1
[2023-12-18 16:48] LABS: White Blood Count 7.8 X10*3/uL (4.8-10.8)
[2023-12-18 16:49] LABS: Platelet Count 235 X10*3/uL (160-400); SLIDE REVIEW VERIFIED
[2023-12-18 16:53] LABS: Alanine Aminotransferase 15 U/L (0-31); Albumin Level 3.9 g/dL (3.5-5.0); Alkaline Phosphatase 131 U/L (39-117); Anion Gap 11 (12-20); Aspartate Amino Transferase 17 U/L (5-31); Bilirubin Total 0.3 mg/dL (0.0-1.0); Blood Urea Nitrogen 17 mg/dL (9-16); Carbon Dioxide 22 mmol/L (22-29); Chloride 107 mmol/L (96-108); Estimated Glomerular Filt Rate 55; Glucose Random 108 mg/dL (60-115); Iron 81 mcg/dL (30-160); Percent Iron Saturation 30 % (15-50); Potassium 4.4 mmol/L (3.3-5.1); Sodium 136 mmol/L (135-145); Total Iron Binding Capacity 270 mcg/dL (228-428); Total Protein 6.5 g/dL (6.5-8.0); Unsaturated Iron Binding 189 ug/dL
[2023-12-18 17:08] LABS: Ferritin 110 ng/mL (10-250); TSH reflex Free T4 0.04 uIU/mL (0.32-4.0)
[2023-12-18 17:53] LABS: Free T4 (Free Thyroxine) 1.39 ng/dL (0.71-1.85)
== END 2023-12-18 14:58 | disposition home or self-care (01) ==
LOC: HO.HMGCLDS 14:57
PROVIDERS: PCP Nurse Practitioner Family; Visit Provider Nurse Practitioner Family
DX: G25.81 Restless legs syndrome (principal)
CPT/HCPCS: 36415; 80053; 82728; 83540; 84439; 84443; 85025

== ENCOUNTER 2024-01-14 12:31 | Outpatient (AMB) | payer MEDICARE, SELFPAY ==
[2024-01-14 12:40] VITALS: BP 120/68; PULSE 97; TEMP 36.6; O2SAT 97; BMI 32.8
--- NOTE | 2024-01-14 12:40 | MHC.OFFWIV ---
Intake Vital Signs 01/14/24 12:40 Height 5 ft 6 in Weight 203 lb BMI 32.8 BP 120/68 Blood Pressure Location Lt brachial Position Sitting Pulse 97 Pulse Source Pulse Oximeter Temp 97.9 F Temp Source Temporal Artery Scan Pulse Oximetry (%) 97 Oxygen Delivery Method Room Air Intake Visit Reasons: EP cough worsening (lobby) Intake Note: pt is here today for cough worsening started 1 year ago Patient Tobacco Use Status: Never used Tobacco Allergies adhesive Allergy (Severe, Verified 01/14/24 13:15) Hives ondansetron [From ZOFRAN ( HYDROCHLORIDE)] Allergy (Unknown, Verified 01/14/24 13:15) ANAPHYLAXIS Medication List - Last Reconciled 01/14/24 by Joshua Delcid, NUCLEAR STATION OPERATOR albuterol sulfate 90 mcg/actuation 2 puffs inhalation Q6H PRN aspirin 81 mg PO DAILY atorvastatin 20 mg PO BEDTIME benzonatate 200 mg PO BID-TID PRN bisacodyl (Dulcolax (bisacodyl)) 10 mg (2 x 5 mg) PO BEDTIME 30 days bupropion HCl XL 300 mg PO DAILY Ca-D3-mag ru-glhn-qja-matt-bor 600 mg calcium- 20 mcg-50 mg (Calcium 600-D3 Plus (mag-zinc)) 1 tab PO DAILY clonazepam 0.5 mg PO TID PRN 30 days cranberry conc-ascorbic acid 4,200-20 mg 20 caps PO DAILY esomeprazole magnesium (Nexium) 40 mg PO DAILY gabapentin 300 mg PO BEDTIME levothyroxine 100 mcg PO DAILY linaclotide (Linzess) 290 mcg PO QAM 30 days prednisone 20 mg PO DAILY trazodone 100 mg PO BEDTIME vitamin B complex 1 cap PO DAILY Do you need a note to return to daycare/school/sports/work: No HPI HPI Comments History of Present Illness Details Patient is a 73-year-old female in today for a sick visit. Patient states she has had chronic cough for the past year since having COVID, however the cough has been exacerbated over the past 4 days. Patient denies other symptoms aside from chronic cough and that it is inhibiting her ability to get to sleep. She states she does have imaging, CT scan scheduled for later this month. She has a past medical history significant for GERD, anxiety, hyperlipidemia. Patient denies chest pain, shortness a breath cough dizziness, nausea, vomiting, diarrhea. She has tried Robitussin with little relief. [facility] Medical History Right shoulder pain Nausea and vomiting Pre-op examination History of breast cancer Skin lesions Screening for lipid disorders Bilateral knee pain Irritable bowel syndrome with constipation Screening for colon cancer Physical exam History of sepsis CKD (chronic kidney disease) CLYDE (obstructive sleep apnea) Clostridium difficile infection Lupus Glaucoma History of kidney disease Sleep apnea Hypothyroidism Closed fracture of neck of left femur Breast cancer Fibromyalgia Surgical History Hx of tonsillectomy History of hip surgery History of esophagogastroduodenoscopy (EGD) H/O colonoscopy History of cholecystectomy Family History Father Heart attack Clogged artery (heart) COPD (chronic obstructive pulmonary disease) Mother Stroke Clogged artery (heart) Sister COPD (chronic obstructive pulmonary disease) Brother COPD (chronic obstructive pulmonary disease) Social History Household Members: None Housing: Apartment Housing Other:: detention Patient Tobacco Use Status: Never used Tobacco e-Cigarette/Vaping Use: Never Used Second Hand Smoke Exposure: No service: No Current occupational status: retired Cognitive needs: No Hearing needs: No Vision needs: No Review of Systems Const All systems reviewed & are unremarkable except as noted in HPI and below Denies chills, Denies fever(s) and Denies headache(s) ENT Denies dizziness, Denies headache(s) and Denies sore throat Card Denies chest pain and Denies dyspnea Resp Reports cough and Denies dyspnea Neuro Denies dizziness and Denies headache(s) Physical Exam Vital Signs: Last Vital Signs Temp 97.9 F 01/14/24 12:40 Pulse 97 01/14/24 12:40 BP 120/68 01/14/24 12:40 Pulse Ox 97 01/14/24 12:40 Oxygen Delivery Method Room Air 01/14/24 12:40 BMI result Body Mass Index 32.8 Vital signs reviewed stable Const Other: Appearance: Alert.? Oriented X3.? No acute distress.? Head: Normocephalic, atraumatic, no step-offs or deformities Eyes: Pupils equal, round and reactive to light.? ENT: Pharynx coblestoned. No post Nasal Drip? Neck: Normal inspection.? Neck supple.? CVS: Normal heart rate and rhythm.? Pulses normal.?+ systolic murmur. Respiratory: No respiratory distress.? Breath sounds normal. + cough on inhaltion. ? Neuro: Oriented X 3.? No motor deficit.? No sensory deficit. CN 2-12 intact Assessment & Plan Assessment & Plan (1) Upper respiratory infection: Comment: Patient will be swabbed in office for upper respiratory infection. Patient likely has acute on chronic cough due to upper respiratory infection. Will prescribe prednisone, benzonatate, and albuterol to be taken as prescribed. Code(s): J06.9 - Acute upper respiratory infection, unspecified Qualifiers: URI type: unspecified URI Qualified Code(s): J06.9 - Acute upper respiratory infection, unspecified Plan: Take your medications as prescribed. If you were prescribed antibiotics today, it is important that you take your medication to their entirety, do not skip any doses, do not finish them early. Follow-up with your primary care provider this week. Return to the emergency department with new or worsening symptoms. Such as fevers, chills, chest pain, shortness of breath, nausea, vomiting, dizziness, headache, vision changes, lethargy In case of emergency call 911 Plan Patient should follow-up with PCP. Orders: Orders SARS-CoV2/FLU/RSV Today J06.9 - Acute upper respiratory infection, unspecified Medications: New benzonatate 200 mg PO BID-TID PRN 30 caps 0RF cough prednisone 20 mg PO DAILY 5 tabs 0RF albuterol sulfate 90 mcg/actuation 2 puffs inhalation Q6H PRN 6.7 grams 0RF shortness of breath or wheezing Coding Level of Care Code Est Pt Level 3 (05638) Diagnoses Upper respiratory tract infection, unspecified type J06.9 URI type: unspecified URI Time Spent (min) 23
== END 2024-01-14 14:49 | disposition home or self-care (01) ==
PROVIDERS: PCP Nurse Practitioner Family; Visit Provider Nurse Practitioner Primary Care
DX: J06.9 Acute upper respiratory infection, unspecified (principal)
CPT/HCPCS: 99213

== ENCOUNTER 2024-01-14 16:23 | Outpatient (REF) | payer MEDICARE, SELFPAY ==
[2024-01-14 17:06] LABS: Influenza A PCR NEGATIVE (Negative); Influenza B PCR NEGATIVE (Negative); Resp Syncy Virus RNA Qual PCR NEGATIVE (Negative); SARS COV2 PCR INHOUSE NEGATIVE (Negative)
== END 2024-01-14 16:24 | disposition home or self-care (01) ==
LOC: HO.HMGCLNP 16:23
PROVIDERS: Visit Provider Nurse Practitioner Primary Care
DX: Z11.52 Encounter for screening for COVID-19 (principal); J06.9 Acute upper respiratory infection, unspecified
CPT/HCPCS: 0241U

== ENCOUNTER 2024-01-15 13:04 | Outpatient (AMB) | payer MEDICARE, SELFPAY ==
--- NOTE | 2024-01-15 13:22 | A.OFFVIS_ITS ---
Intake Vital Signs 01/15/24 13:33 Height 5 ft 6 in Weight 202 lb BMI 32.6 BP 144/72 H Blood Pressure Location Lt brachial Position Sitting Pulse 88 Intake Visit Reasons: 8 week follow up Intake Note: Patient is seen in office for 8 wks follow up visit. 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 because that is how it is labeled but she found that taking 2 of them gave her straight water. She is taking 1 at night along with her Linzess 290. This is helping her empty out a bit more in the morning but she can still have several bowel movements and still has no warning with her bowel movements in the middle of the day. At least she has not having severely hard small rabbit pellet-like stools at this time. She has a new problem of a severe lack of appetite along with her chronic nausea. She is found her appetite severely reduced since she last saw me and s he really does not know why. Her nausea has been chronic. She really struggles to eat sweet which historically she really was fond of. I think we need to get a gastric emptying study I am really not sure what is going on here. There been no new medicines, she did stop 2 of her medications my fiber tack and raloxifene, but she stopped these after the appetite loss presented. She has an upcoming EGD and colonoscopy which I think is prudent. I am also going to add a gastric emptying study. Orders: Orders NM gastric emptyin g study Today R11.2 - Nausea wit h vomiting, unspec ified EGD/COLONOSCOPY Scheduled for 04/20/2024 BIOPSY GASTRIC EMPTYING STUDY 01/30/2024 Medications: New bisacodyl (Dulcola x (bisacodyl)) 10 mg (2 x 5 mg) P O BEDTIME 30 days 60 tabs 6RF esomeprazole magne sium (Nexium) 40 mg PO DAILY 30 caps 6RF CORRESPONDENCE On 12/03/23 @ 08:37 Kathrin Wallace Wrote To Joe pt r/s. Radha Chan removed from item. On 12/02/23 @ 12:47 Blanquita Gentile Wrote To Joe (2) Spoke to patient- scheduled for EGD/COLO on 12/05. She is canceling this appt and will need to r/s procedure - She states she is still recovering from her surgery on her shoulder. Radha can you please call her , she states she called and left messages x2 - one last week and one this morning. OR notified. TODAY'S VISIT If she takes the Linzess at the 290 micro g dose she will have diarrhea for several days. Then she stops taking it becomes constipated. I think we need to lower the dose and see if we can get something that works for her on a more consistent basis without putting her into diarrhea. She continues to struggle with nausea and she has the gastric emptying study co iris up on January 29. At this point I will bring her back after this day and we can go over the gastric emptying study and continue to adjust her Linzess dosage. She continues on her Nexium 40mg daily. She buys this OTC. She is recovering from shoulder surgery currently and has a sling in her right arm. I want to see her in January after the gastric emptying study and at that time we can also assess the dose adjustment for the Linzess. [facility] Medical History Right shoulder pain Nausea and vomiting Pre-op examination History of breast cancer Skin lesions Screening for lipid disorders Bilateral knee pain Irritable bowel syndrome with constipation Screening for colon cancer Physical exam History of sepsis CKD (chronic kidney disease) CLYDE (obstructive sleep apnea) Clostridium difficile infection Lupus Glaucoma History of kidney disease Sleep apnea Hypothyroidism Closed fracture of neck of left femur Breast cancer Fibromyalgia Surgical History Hx of tonsillectomy History of hip surgery History of esophagogastroduodenoscopy (EGD) H/O colonoscopy History of cholecystectomy Family History Father Heart attack Clogged artery (heart) COPD (chronic obstructive pulmonary disease) Mother Stroke Clogged artery (heart) Sister COPD (chronic obstructive pulmonary disease) Brother COPD (chronic obstructive pulmonary disease) Social History Household Members: None Housing: Apartment Housing Other:: [facility] Patient Tobacco Use Status: Never used Tobacco e-Cigarette/Vaping Use: Never Used Second Hand Smoke Exposure: No service: No Current occupational status: retired Cognitive needs: No Hearing needs: No Vision needs: No Review of Systems Const Denies fatigue, Denies fever(s), Denies night sweats, Denies poor appetite and Denies weight loss Eyes Details: glasses Reports requires corrective lenses ENT Reports Normal hearing present, Denies dental pain, Denies dysphagia, Denies hearing loss, Denies mouth pain, Denies odynophagia, Denies throat swelling, Denies tongue swelling and Reports other (Dentition adequate) Card Reports no additional complaints Resp Reports cough GI Details: Denies abdominal pain, Denies melena, Denies bloating, Denies hematochezia, Reports constipation, Denies GI cramping, Denies dysphagia, Denies excessive flatus, Denies early satiety, Reports heartburn, Denies diarrhea, Reports nausea, Denies odynophagia, Denies vomiting and Denies hematemesis Skin/Breast Denies pruritus, Denies lesions, Denies rash and Denies jaundice Neuro Reports Normal hearing present and Denies Abnormal speech present Endo Denies fatigue Aller/Immun Denies throat swelling and Denies tongue swelling Physical Exam Vital Signs: Last Vital Signs Pulse 88 01/15/24 13:33 BP 144/72 H 01/15/24 13:33 BMI result Body Mass Index 32.6 Const General: cooperative, no acute distress, well developed and well groomed Nutritional Appearance: well nourished and obese Orientation/consciousness: oriented to person, oriented to place and oriented to time Limitations: No language barrier and other limitations HEENT Head: Yes normocephalic and Yes atraumatic Eyes General: appearance normal, both eyes and all related structures Pupils: Equal, round and reactive pupils present Neck Neck: Yes normal visual inspection and Yes no lymphadenopathy Thyroid: Thyroid normal Resp Effort & Inspection: normal respiratory effort and able to speak in complete sentences Auscultation: clear to auscultation bilaterally Cardio Rate: regular rate Rhythm: regular rhythm Heart sounds: Normal, physiologic split S2 sound present Peripheral pulses: radial pulses present and posterior tibial pulses present GI Inspection: No distended, Yes Abdominal panniculus present and Yes obesity Palpation (GI): Soft to palpation, nontender, no guarding, not rigid and No hepatosplenomegaly present Percussion: Yes normal to percussion Auscultation: normal bowel sounds Rectal Exam - Female: deferred Skin General skin exam: no rashes or lesions noted, turgor normal, skin not dry, no jaundice, No spider nevi and no striae Rashes: no rashes Nails: normal Neuro General: oriented to person, oriented to place and oriented to time Cranial nerves: Yes Equal, round and reactive pupils present and Yes Normal hearing present Speech: No Abnormal speech present Extrem General: Yes normal to inspection, No clubbing, No cyanosis and No edema Psych Appearance: grossly normal and well kempt Mental Status: mental status grossly normal Speech and movement: Normal speech and movement present Affect: normal affect Attitude: cooperative Thought process: Normal thought process present and not confabulating Thought content: Normal thought content present Insight: Fair insight present (Psych) and Limited insight present (Psych) Judgement: Fair judgement present (Psych) and Limited judgement present (Psych) Assessment & Plan Assessment & Plan (1) Multiple adenomatous polyps: Code(s): D36.9 - Benign neoplasm, unspecified site (2) Chronic idiopathic constipation: Code(s): K59.04 - Chronic idiopathic constipation (3) Nausea: Code(s): R11.0 - Nausea (4) Early satiety: Code(s): R68.81 - Early satiety Plan If she takes the Linzess at the 290 micro g dose she will have diarrhea for several days. Then she stops taking it becomes constipated. I think we need to lower the dose and see if we can get something that works for her on a more consistent basis without putting her into diarrhea. She continues to struggle with nausea and she has the gastric emptying study coming up on January 29. At this point I will bring her back after this day and we can go over the gastric emptying study and continue to adjust her Linzess dosage. She continues on her Nexium 40mg daily. She buys this OTC. She is recovering from shoulder surgery currently and has a sling in her right arm. I want to see her in January after the gastric emptying study and at that time we can also assess the dose adjustment for the Linzess. EGD/COLONOSCOPY Scheduled for 04/20/2024 BIOPSY GASTRIC EMPTYING STUDY 01/30/2024 Medications: New linaclotide (Linzess) Take first thing in the morning with a full glass of water. 145 mcg PO QAM 30 caps 3RF K58.1 - Irritable bowel syndrome with constipation Discontinued linaclotide (Linzess) Discontinued Reason: Doctor's Order 290 mcg PO QAM 30 days 30 caps 6RF K59.04 - Chronic idiopathic constipation Coding Level of Care Code Est Pt Level 3 (68532) Diagnoses Multiple adenomatous polyps D36.9 Chronic idiopathic constipation K59.04 Nausea R11.0 Early satiety R68.81
[2024-01-15 13:33] VITALS: BP 144/72; PULSE 88; BMI 32.6
== END 2024-01-15 13:51 | disposition home or self-care (01) ==
PROVIDERS: PCP Nurse Practitioner Family; Visit Provider Nurse Practitioner
DX: D36.9 Benign neoplasm, unspecified site (principal); K59.04 Chronic idiopathic constipation; R11.0 Nausea; R68.81 Early satiety
CPT/HCPCS: 99213

== ENCOUNTER → 2024-01-15 13:04 | Outpatient (BNVA) | payer MEDICARE, SELFPAY | PROVIDERS: PCP Nurse Practitioner Family; Visit Provider Nurse Practitioner | DX: K59.04 Chronic idiopathic constipation (principal); D36.9 Benign neoplasm, unspecified site; R11.0 Nausea; R68.81 Early satiety | CPT/HCPCS: 99212 ==

== ENCOUNTER 2024-01-24 13:28 | Outpatient (REF) | payer MEDICARE, SELFPAY ==
--- NOTE | ~2024-01-24 | CT_ITS ---
EXAMINATION: CT CHEST WITHOUT CONTRAST CLINICAL INFORMATION: Chronic cough. COMPARISON: None available. TECHNIQUE: Multidetector volumetric CT imaging of the chest was done. Axial MIP volume rendering provided. Sagittal and coronal reformatted images were obtained. This CT examination was performed using dose optimization techniques as appropriate, variously including the following: *Automated exposure control *Adjustment of mA and/or kV according to patient size (this includes techniques or standardized protocols for targeted exams where dose is matched to indication/reason for exam; i.e. extremities or head) *Use of iterative reconstruction technique DLP: 254 mGy-cm FINDINGS: LUNGS: 3 mm right apical nodule on image 61 of series 5. Mild diffuse bronchiectasis. Subpleural reticular changes in the lower lobes and right middle lobe. No focal consolidation. Central airways are patent. MEDIASTINUM: Atrophic or hypoplastic thyroid gland. No bulky axillary, mediastinal or hilar lymphadenopathy. Ascending thoracic aorta measures 4.0 x 4.2 cm. Heart size is normal. No pericardial effusion. CORONARY ARTERY CALCIFICATION: Moderate. PLEURA: No pleural effusion. UPPER ABDOMEN: Status post cholecystectomy. Heterogeneous appearance of the spleen. This may be further evaluated with contrast-enhanced imaging. OSSEOUS STRUCTURES: No destructive bone lesions. CT/CT chest wo IV con IMPRESSION: Subpleural reticular changes in the lower lobes and right middle lobe. Mild diffuse bronchiectasis. This may represent early interstitial lung disease. Consultation with pulmonology is advised. Ascending thoracic aortic aneurysm. Heterogeneous appearance of the spleen. This may be further evaluated with contrast-enhanced imaging.
== END 2024-01-24 13:29 | disposition home or self-care (01) ==
LOC: HO.CT 13:28
PROVIDERS: PCP Nurse Practitioner Family; Visit Provider Nurse Practitioner Family
DX: R05.3 Chronic cough (principal)
CPT/HCPCS: 71250

== ENCOUNTER → 2024-01-30 08:20 | Outpatient (REF) | payer MEDICARE, SELFPAY ==
--- NOTE | ~2024-01-30 | NM_ITS ---
EXAMINATION: MI RADIONUCLIDE SOLID FOOD GASTRIC EMPTYING 4-HOUR STUDY CLINICAL INFORMATION: Nausea and vomiting, unspecified. COMPARISON: None TECHNIQUE: A standard meal consisting of 4 oz of Egg Beaters brand tagged with 1000 microcuries Tc-99m Sulfur Colloid, 8 oz water and 2 slices of toast with jelly was administered orally to the patient. Images were obtained using a dual head gamma camera in the anterior and posterior projections over of the stomach immediately post ingestion and at hourly intervals up to 4 hours post ingestion. The anterior and posterior counts at each time interval were averaged using the geometric mean and expressed as percentage of the immediate post ingestion counts. FINDINGS: There is good visualization of activity in the stomach immediately post ingestion. As the study progresses, there is good clearance of activity from the stomach and visualization of progressively increasing small bowel activity. By the end of the study, there is mild retention noted in the stomach. Retention in the stomach at each time interval was: 1 hour 69% (normal 37%-90%) 2 hours 46% (normal 30%-60%) 3 hours 25% 4 hours 17% (normal 0%-10%) MI/MI gastric emptying study IMPRESSION: Mildly delayed (grade 1-mild retention) 4 hours solid food gastric emptying study. For solid meal, rapid gastric emptying is less than 30% at 60 minutes. Delayed gastric emptying criteria is more than 60% remaining at 120 minutes or more than 10% at 240 minutes. The 4-hour value is the best discriminator of a normal or abnormal result). Gastric emptying study grading per JNMT Consensus Recommendations in 2008 (https://tech.snmjournals.org/content/36/44) Grade 1 (mild retention): 11-20% at 4h Grade 2 (moderate retention): 21-35% at 4h Grade 3 (severe retention): 36-50% at 4h Grade 4 (very severe retention): >50% retention at 4h
== END ==
LOC: HO.NUCMED 08:20
PROVIDERS: PCP Nurse Practitioner Family; Visit Provider Nurse Practitioner
DX: R11.2 Nausea with vomiting, unspecified (principal)
CPT/HCPCS: 78264; A9541

== ENCOUNTER 2024-02-06 12:51 | Outpatient (REF) | payer MEDICARE, SELFPAY ==
[2024-02-06 16:56] LABS: Alanine Aminotransferase 15 U/L (0-31); Albumin Level 3.8 g/dL (3.5-5.0); Alkaline Phosphatase 99 U/L (39-117); Anion Gap 12 (12-20); Aspartate Amino Transferase 16 U/L (5-31); Bilirubin Total 0.4 mg/dL (0.0-1.0); Blood Urea Nitrogen 17 mg/dL (9-16); Calcium 10.1 mg/dL (8.4-10.2); Carbon Dioxide 24 mmol/L (22-29); Chloride 110 mmol/L (96-108); Estimated Glomerular Filt Rate > 60; Gamma Glutamyl Transpeptidase 26 U/L (7-33); Glucose Random 119 mg/dL (60-115); Potassium 4.1 mmol/L (3.3-5.1); Sodium 142 mmol/L (135-145); Total Protein 6.3 g/dL (6.5-8.0)
[2024-02-06 17:02] LABS: TSH reflex Free T4 1.68 uIU/mL (0.32-4.0)
[2024-02-10 21:58] LABS: Alk.Phos Iso. Macrohepatic 0 % (<=0); Alk.Phos Isoenzymes Bone 43 % (28-66); Alk.Phos Isoenzymes Intest 0 % (1-24); Alk.Phos Isoenzymes Liver 57 % (25-69); Alk.Phos Isoenzymes Placental 0 % (<=0); Alk.Phos Isoenzymes Total 98 U/L (37-153)
== END 2024-02-06 12:52 | disposition home or self-care (01) ==
LOC: HO.HMGCLDS 12:51
PROVIDERS: PCP Nurse Practitioner Family; Visit Provider Nurse Practitioner Family
DX: R74.8 Abnormal levels of other serum enzymes (principal); E03.9 Hypothyroidism, unspecified
CPT/HCPCS: 36415; 80053; 82977; 84080; 84443

== ENCOUNTER 2024-02-13 13:31 | Outpatient (AMB) | payer MEDICARE, SELFPAY ==
--- NOTE | 2024-02-13 13:34 | A.OFFVIS_ITS ---
Vital Signs 02/13/24 13:35 Height 5 ft 6 in Weight 203 lb 4.259 oz BMI 32.8 BP 146/59 H Blood Pressure Location Lt brachial Position Sitting Pulse 83 Intake Visit Reasons: nausea, CIC follow up Intake Note: Patient returns to in office nausea, and CIC and gastric emptying scan. CC: Patient states she continues having same issues. Transportation Aid Required: No Accompanied by: Self / Same As Patient Allergies adhesive Allergy (Severe, Verified 02/13/24 13:48) Hives ondansetron [From ZOFRAN ( HYDROCHLORIDE)] Allergy (Unknown, Verified 02/13/24 13:48) ANAPHYLAXIS [facility] Medical History Right shoulder pain Nausea and vomiting Pre-op examination History of breast cancer Skin lesions Screening for lipid disorders Bilateral knee pain Irritable bowel syndrome with constipation Screening for colon cancer Physical exam History of sepsis CKD (chronic kidney disease) CLYDE (obstructive sleep apnea) Clostridium difficile infection Lupus Glaucoma History of kidney disease Sleep apnea Hypothyroidism Closed fracture of neck of left femur Breast cancer Fibromyalgia Surgical History H/O shoulder surgery Hx of tonsillectomy History of hip surgery History of esophagogastroduodenoscopy (EGD) H/O colonoscopy History of cholecystectomy Family History Father Heart attack Clogged artery (heart) COPD (chronic obstructive pulmonary disease) Mother Stroke Clogged artery (heart) Sister COPD (chronic obstructive pulmonary disease) Brother COPD (chronic obstructive pulmonary disease) Social History Household Members: None Housing: Apartment Housing Other:: residential Patient Tobacco Use Status: Never used Tobacco e-Cigarette/Vaping Use: Never Used Second Hand Smoke Exposure: No service: No Current occupational status: retired Cognitive needs: No Hearing needs: No Vision needs: No Coding
--- NOTE | 2024-02-13 13:34 | MHC.OFFVIS ---
Vital Signs 02/13/24 13:35 Height 5 ft 6 in Weight 203 lb 4.259 oz BMI 32.8 BP 146/59 H Blood Pressure Location Lt brachial Position Sitting Pulse 83 Intake Visit Reasons: nausea, CIC follow up Allergies adhesive Allergy (Severe, Verified 02/14/24 13:48) Hives ondansetron [From ZOFRAN ( HYDROCHLORIDE)] Allergy (Unknown, Verified 02/14/24 13:48) ANAPHYLAXIS HPI HPI nausea, CIC follow up: Details: Assessment & Plan (1) Multiple adenomatous polyps: Code(s): D36.9 - Benign neoplasm, unspecified site (2) Chronic idiopathic constipation: Code(s): K59.04 - Chronic idiopathic constipation (3) Nausea: Code(s): R11.0 - Nausea (4) Early satiety: Code(s): R68.81 - Early satiety Plan If she takes the Linzess at the 290 micro g dose she will have diarrhea for several days. Then she stops taking it becomes constipated. I think we need to lower the dose and see if we can get something that works for her on a more consistent basis without putting her into diarrhea. She continues to struggle with nausea and she has the gastric emptying study coming up on January 29. At this point I will bring her back after this day and we can go over the gastric emptying study and continue to adjust her Linzess dosage. She continues on her Nexium 40mg daily. She buys this OTC. She is recovering from shoulder surgery currently and has a sling in her right arm. I want to see her in January after the gastric emptying study and at that time we can also assess the dose adjustment for the Linzess. Medications: New linaclotide (Linzess) Take first thing in the morning with a full glass of water. 145 mcg PO QAM 30 caps 3RF K58.1 - Irritable bowel syndrome with constipation Discontinued linaclotide (Linzess) Discontinued Reason: Doctor's Order 290 mcg PO QAM 30 days 30 caps 6RF K59.04 - Chronic idiopathic constip EGD/COLONOSCOPY RESCHEDULED TO 03/2024 BIOPSY GASTRIC EMPTYING STUDY 01/31/24 IMPRESSION: Mildly delayed (grade 1-mild retention) 4 hours solid food gastric emptying study. Medications: New bisacodyl (Dulcolax (bisacodyl)) 10 mg (2 x 5 mg) PO BEDTIME 30 days 60 tabs 6RF esomeprazole magnesium (Nexium) 40 mg PO DAILY 30 caps 6RF CORRESPONDENCE On 12/03/23 @ 08:37 Kathrin Wallace Wrote To Diaz pt r/s. Radha Chan removed from item. On 12/02/23 @ 12:47 Blanquita Gentile Wrote To Diaz (2) Spoke to patient- scheduled for EGD/COLO on 12/05. She is canceling this appt and will need to r/s procedure - She states she is still recovering from her surgery on her shoulder. Radha can you please call her , she states she called and left messages x2 - one last week and one this morning. OR notified. TODAY'S VISIT With the Linzess 145mcg she is not moving her bowels every day and she has trouble with incomplete evacuation despite soft stools. Since the GES shows mild delay, will start a trial of reglan 5mg qid. Also consider adding senna qhs with the LInzess 145mcg. She did develop an allergic rxn to zofran after years of use, so she is encouraged to stop the reglan if anything happens she is to take benadryl and she was also educated regarding possible s/e that would necessitate discontinuance including SS and tremor. Her nausea continues. SHE CONTINUES ON HER GENERIC NEXIUM. ROV 3 weeks. [facility]LY [facility] Medical History Right shoulder pain Nausea and vomiting Pre-op examination History of breast cancer Skin lesions Screening for lipid disorders Bilateral knee pain Irritable bowel syndrome with constipation Screening for colon cancer Physical exam History of sepsis CKD (chronic kidney disease) CLYDE (obstructive sleep apnea) Clostridium difficile infection Lupus Glaucoma History of kidney disease Sleep apnea Hypothyroidism Closed fracture of neck of left femur Breast cancer Fibromyalgia Surgical History H/O shoulder surgery Hx of tonsillectomy History of hip surgery History of esophagogastroduodenoscopy (EGD) H/O colonoscopy History of cholecystectomy Family History Father Heart attack Clogged artery (heart) COPD (chronic obstructive pulmonary disease) Mother Stroke Clogged artery (heart) Sister COPD (chronic obstructive pulmonary disease) Brother COPD (chronic obstructive pulmonary disease) Social History Household Members: None Housing: Apartment Housing Other:: detention Patient Tobacco Use Status: Never used Tobacco e-Cigarette/Vaping Use: Never Used Second Hand Smoke Exposure: No service: No Current occupational status: retired Cognitive needs: No Hearing needs: No Vision needs: No Review of Systems Const Details: glasses Denies fatigue, Denies fever(s), Denies night sweats, Denies poor appetite and Denies weight loss ENT Reports Normal hearing present, Denies dental pain, Denies dysphagia, Denies hearing loss, Denies mouth pain, Denies odynophagia, Denies throat swelling, Denies tongue swelling and Reports other (Dentition adequate) Card Reports no additional complaints Resp Reports no additional complaints GI Details: Denies abdominal pain, Denies melena, Reports bloating, Denies hematochezia, Reports constipation, Reports GI cramping, Denies dysphagia, Denies excessive flatus, Denies early satiety, Reports heartburn, Denies diarrhea, Denies nausea, Denies odynophagia, Denies vomiting and Denies hematemesis Skin/Breast Denies pruritus, Denies lesions, Denies rash and Denies jaundice Neuro Reports Normal hearing present and Denies Abnormal speech present Endo Denies fatigue Aller/Immun Denies throat swelling and Denies tongue swelling Physical Exam Vital Signs: Last Vital Signs Pulse 83 02/13/24 13:35 BP 146/59 H 02/13/24 13:35 BMI result Body Mass Index 32.8 Const General: cooperative, no acute distress, well developed and well groomed Nutritional Appearance: well nourished and obese Orientation/consciousness: oriented to person, oriented to place and oriented to time Limitations: No language barrier HEENT Head: Yes normocephalic and Yes atraumatic Eyes General: appearance normal, both eyes and all related structures Pupils: Equal, round and reactive pupils present Neck Neck: Yes normal visual inspection and Yes no lymphadenopathy Thyroid: Thyroid normal Resp Effort & Inspection: normal respiratory effort and able to speak in complete sentences Auscultation: clear to auscultation bilaterally Cardio Rate: regular rate Rhythm: regular rhythm Heart sounds: Normal, physiologic split S2 sound present Peripheral pulses: radial pulses present and posterior tibial pulses present GI Inspection: No distended, No Abdominal panniculus present and Yes obesity Palpation (GI): Soft to palpation, nontender, no guarding, not rigid and No hepatosplenomegaly present Percussion: Yes normal to percussion Auscultation: normal bowel sounds Rectal Exam - Female: deferred Skin General skin exam: no rashes or lesions noted, turgor normal, skin not dry, no jaundice, No spider nevi and no striae Rashes: no rashes Nails: normal Neuro General: oriented to person, oriented to place and oriented to time Cranial nerves: Yes Equal, round and reactive pupils present and Yes Normal hearing present Speech: No Abnormal speech present Extrem General: Yes normal to inspection, No clubbing, No cyanosis and No edema Psych Appearance: grossly normal and well kempt Mental Status: mental status grossly normal Speech and movement: Normal speech and movement present Affect: normal affect Attitude: cooperative Thought process: Normal thought process present and not confabulating Thought content: Normal thought content present Insight: Fair insight present (Psych) and Limited insight present (Psych) Judgement: Fair judgement present (Psych) and Limited judgement present (Psych) Assessment & Plan Assessment & Plan (1) Chronic idiopathic constipation: Code(s): K59.04 - Chronic idiopathic constipation Category: Medical (2) Early satiety: Code(s): R68.81 - Early satiety Category: Medical (3) Nausea: Code(s): R11.0 - Nausea Category: Medical (4) Delayed gastric emptying: Code(s): K30 - Functional dyspepsia Category: Medical Plan With the Linzess 145mcg she is not moving her bowels every day and she has trouble with incomplete evacuation despite soft stools. Since the GES shows mild delay, will start a trial of reglan 5mg qid. Also consider adding senna qhs with the LInzess 145mcg. She did develop an allergic rxn to zofran after years of use, so she is encouraged to stop the reglan if anything happens she is to take benadryl and she was also educated regarding possible s/e that would necessitate discontinuance including SS and tremor. Her nausea continues. SHE CONTINUES ON HER GENERIC NEXIUM. ROV 3 weeks. Medications: New sennosides (Senna Laxative) 17.2 mg (2 x 8.6 mg) PO BEDTIME 60 tabs 3RF K59.04 - Chronic idiopathic constipation metoclopramide HCl (Reglan) 5 mg PO QIDACHS 120 tabs 3RF K30 - Functional dyspepsia, R11.0 - Nausea, R68.81 - Early satiety Discontinued bisacodyl Discontinued Reason: Doctor's Order 10 mg (2 x 5 mg) PO BEDTIME 30 days 60 tabs 6RF Coding Level of Care Code Est Pt Level 3 (84840) Diagnoses Chronic idiopathic constipation K59.04 Early satiety R68.81 Nausea R11.0 Delayed gastric emptying K30
[2024-02-13 13:35] VITALS: BP 146/59; PULSE 83; BMI 32.8
== END 2024-02-13 14:22 | disposition home or self-care (01) ==
PROVIDERS: PCP Nurse Practitioner Family; Visit Provider Nurse Practitioner
DX: K59.04 Chronic idiopathic constipation (principal); R68.81 Early satiety; R11.0 Nausea; K30 Functional dyspepsia
CPT/HCPCS: 99213

== ENCOUNTER → 2024-02-13 13:31 | Outpatient (BNVA) | payer MEDICARE, SELFPAY | PROVIDERS: PCP Nurse Practitioner Family; Visit Provider Nurse Practitioner | DX: K59.04 Chronic idiopathic constipation (principal); R68.81 Early satiety; R11.0 Nausea; K30 Functional dyspepsia | CPT/HCPCS: 99212 ==

== ENCOUNTER 2024-02-14 13:36 | Outpatient (AMB) | payer MEDICARE, SELFPAY ==
[2024-02-14 13:43] VITALS: BP 146/78; PULSE 76; O2SAT 98; BMI 33.1
--- NOTE | 2024-02-14 13:43 | A.OFFVIS_ITS ---
Vital Signs 02/14/24 13:43 Height 5 ft 6 in Weight 205 lb 4 oz BMI 33.1 BP 146/78 H Blood Pressure Location Lt brachial Position Sitting Pulse 76 Pulse Source Pulse Oximeter Pulse Oximetry (%) 98 Oxygen Delivery Method Room Air Intake Visit Reasons: Interstitial pulmonary disease Allergies adhesive Allergy (Severe, Verified 02/14/24 13:48) Hives ondansetron [From ZOFRAN ( HYDROCHLORIDE)] Allergy (Unknown, Verified 02/14/24 13:48) ANAPHYLAXIS HPI HPI Interstitial pulmonary disease: Details: Reema is a pleasant 73 year old female, never smoker, with underlying lupus, h/o right breast cancer, CKD and hypothyroidism. She was referred for PCP after abnormal chest CT. She reports chronic cough since having COVID last year (recovered at home, no hospitalization required). She was recently treated on 01/13 for worsening of cough and treated with prednisone, benzonatate, and albuterol. She reports some improvement in symptoms however continues with wheezing. She has been using albuterol infrequently. She also reports dyspnea on exertion and hoarseness. She denies prior diagnosis of asthma. She denies any seasonal allergies. She denies any occupational exposures. She reports diagnosis of Lupus in her 30s treated with high dose steroids for 10+ years. Over the last few years she reports minimal symptoms and has not had any flareups. She did undergo radiation on the right for breast cancer in 2008. She denies any prior abnormal chest CTs, recent report below. [facility] Medical History Right shoulder pain Nausea and vomiting Pre-op examination History of breast cancer Skin lesions Screening for lipid disorders Bilateral knee pain Irritable bowel syndrome with constipation Screening for colon cancer Physical exam History of sepsis CKD (chronic kidney disease) CLYDE (obstructive sleep apnea) Clostridium difficile infection Lupus Glaucoma History of kidney disease Sleep apnea Hypothyroidism Closed fracture of neck of left femur Breast cancer Fibromyalgia Surgical History H/O shoulder surgery Hx of tonsillectomy History of hip surgery History of esophagogastroduodenoscopy (EGD) H/O colonoscopy History of cholecystectomy Family History Father Heart attack Clogged artery (heart) COPD (chronic obstructive pulmonary disease) Mother Stroke Clogged artery (heart) Sister COPD (chronic obstructive pulmonary disease) Brother COPD (chronic obstructive pulmonary disease) Social History Household Members: None Housing: Apartment Housing Other:: halfway Patient Tobacco Use Status: Never used Tobacco e-Cigarette/Vaping Use: Never Used Second Hand Smoke Exposure: No service: No Current occupational status: retired Cognitive needs: No Hearing needs: No Vision needs: No Review of Systems Const Denies chills, Denies excessive sweating, Denies fever(s), Denies headache(s) and Denies night sweats Eyes Denies dry eyes, Denies irritation and Denies itchy eyes ENT Reports Normal hearing present, Denies headache(s), Denies nasal congestion, Denies nasal discharge, Denies post nasal drip and Denies sore throat Card Denies chest pain, Denies chest pain at rest, Denies chest pain with activity, Denies claudication, Denies leg edema, Denies orthopnea and Denies paroxysmal nocturnal dyspnea Resp Denies chest congestion, Denies excessive phlegm production, Denies pain on inspiration, Denies pain with cough and Denies stridor Musc Denies myalgias Neuro Reports Normal hearing present and Denies headache(s) Endo Denies excessive sweating Anibal/Lymph Denies lymphadenopathy Aller/Immun Denies itchy eyes and Denies seasonal rhinorrhea Physical Exam Vital Signs: Last Vital Signs Pulse 76 02/14/24 13:43 BP 146/78 H 02/14/24 13:43 Pulse Ox 98 02/14/24 13:43 Oxygen Delivery Method Room Air 02/14/24 13:43 BMI result Body Mass Index 33.1 Const General: cooperative, healthy appearing, comfortable, no acute distress, well developed and alert Nutritional Appearance: obese Orientation/consciousness: patient oriented x3 Limitations: no limitations HEENT Head: Yes normal to inspection, Yes normocephalic and Yes atraumatic Ears: hearing grossly normal bilaterally and external ears normal Eyes General: appearance normal, both eyes and all related structures Eyelids: Yes eyelids normal Sclerae: sclerae normal EOM: EOMs intact bilaterally Neck Neck: Yes normal visual inspection and Yes no lymphadenopathy Lymphatic: no lymphadenopathy noted Chest Chest palpation & inspection: normal inspection of the chest Resp Other: wheezing and diminished lung sounds, improved with nebulizer Effort & Inspection: normal respiratory effort, able to speak in complete sentences, no audible wheezes, no stridor, not tachypneic, no tripod positioning and no use of accessory muscles Auscultation: wheezes and diminished lung sounds Cardio Jugular venous distension: no JVD Rate: regular rate Rhythm: regular rhythm Skin Other: warm, dry General skin exam: no rashes or lesions noted Neuro General: patient oriented x3 Cranial nerves: Yes Normal hearing present Cognition (Neuro): normal cognition Gait exam (Neuro): Normal gait present Extrem General: Yes normal to inspection, Yes capillary refill normal, Yes no clubbing, cyanosis or edema and Yes no pedal edema Psych Appearance: grossly normal and well kempt Speech and movement: Normal speech and movement present and Clear speech present Affect: normal affect Attitude: cooperative Thought process: Normal thought process present Thought content: Normal thought content present Insight: Good insight present (Psych) Judgement: Good judgement present (Psych) Office Procedures Nebulizer Treatment Nebulizer Treatment 70840-Cjalxmxht/MDI RX initial, or Nebulizer Subsequent Treatment Office Meds albuterol sulfate 2.5 mg/3 mL (0.083 %) solution for nebulization Performing Provider: Lo Coe NP Performing Location: [facility] Administered by: Daphne Mcknight LPN on 02/14/24 14:45 Dose Route Admin Location Dispensed Lot Number Expiration Date [facility] [employer] 2.5 mg inhalation 3 mL [id number] 08/29/24 7747-6511-82 [facility] Results Reviewed Results Reviewed: [address] [address] [address] Scan Report Signed Patient: Reema Dalton MR#: [id number] : 1950 Acct:[id number] Age/Sex: 73 / F ADM Date: 01/24/24 Loc: HO.CT Attending Dr: Tushar CLEMENT Ordering Physician: Tushar Arroyo Date of Service: 01/24/24 Procedure(s): CT chest wo IV con Accession Number(s): [id number] cc: Tushar ArroyoBC~ EXAMINATION: CT CHEST WITHOUT CONTRAST CLINICAL INFORMATION: Chronic cough. COMPARISON: None available. TECHNIQUE: Multidetector volumetric CT imaging of the chest was done. Axial MIP volume rendering provided. Sagittal and coronal reformatted images were obtained. This CT examination was performed using dose optimization techniques as appropriate, variously including the following: *Automated exposure control *Adjustment of mA and/or kV according to patient size (this includes techniques or standardized protocols for targeted exams where dose is matched to indication/reason for exam; i.e. extremities or head) *Use of iterative reconstruction technique DLP: 254 mGy-cm FINDINGS: LUNGS: 3 mm right apical nodule on image 61 of series 5. Mild diffuse bronchiectasis. Subpleural reticular changes in the lower lobes and right middle lobe. No focal consolidation. Central airways are patent. MEDIASTINUM: Atrophic or hypoplastic thyroid gland. No bulky axillary, mediastinal or hilar lymphadenopathy. Ascending thoracic aorta measures 4.0 x 4.2 cm. Heart size is normal. No pericardial effusion. CORONARY ARTERY CALCIFICATION: Moderate. PLEURA: No pleural effusion. UPPER ABDOMEN: Status post cholecystectomy. Heterogeneous appearance of the spleen. This may be further evaluated with contrast-enhanced imaging. OSSEOUS STRUCTURES: No destructive bone lesions. CT/CT chest wo IV con IMPRESSION: Subpleural reticular changes in the lower lobes and right middle lobe. Mild diffuse bronchiectasis. This may represent early interstitial lung disease. Consultation with pulmonology is advised. Ascending thoracic aortic aneurysm. Heterogeneous appearance of the spleen. This may be further evaluated with contrast-enhanced imaging. 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 Recent chest CT revealed subpleural reticular changes in the lower lobes and right middle lobe, suggestive of early ILD. She did report prior radiation for breast cancer in 2009 on the right. Mild diffuse bronchiectasis was noted, which could be the cause of chronic cough. There was also an incidental 3 mm pulmonary nodule on right apex. Will schedule chest CT in one year to assess or sooner if changes on PFT. On exam patient with expiratory wheezes, despite nebulizer, will send in prednisone. Encouraged albuterol use and will send for PFT to assess for any restrictive defect or decrease in DLCO. Once PFT reviewed will discuss a daily inhaler. All questions were answered and patient is in agreement of plan. Will follow up after PFT or sooner if needed. Orders: Orders AMB Nebulizer Treatment 02/14/24 J47.9 - Bronchiectasis, uncomplicated, J84.9 - Interstitial pulmonary disease, unspecified CT chest wo IV con 11 Months J47.9 - Bronchiectasis, uncomplicated, R91.1 - Solitary pulmonary nodule Medications: New prednisone 40 mg (2 x 20 mg) PO DAILY 10 tabs 0RF Coding Level of Care Code New Pt Level 4 (99492) Diagnoses Chronic cough R05.3 Bronchiectasis J47.9 Dyspnea on exertion R06.09 Pulmonary nodule R91.1 CPT Codes Nebulizer Treatment - Nebulizer Treatment, initial or subsequent: 28530- Nebulizer/MDI RX initial, or Nebulizer Subsequent Treatment ([id number])
== END 2024-02-14 14:51 | disposition home or self-care (01) ==
PROVIDERS: PCP Nurse Practitioner Family; Referring Provider Nurse Practitioner Family; Visit Provider Nurse Practitioner Family
DX: R05.3 Chronic cough (principal); J47.9 Bronchiectasis, uncomplicated; R06.09 Other forms of dyspnea; R91.1 Solitary pulmonary nodule
CPT/HCPCS: 99204; 99214

== ENCOUNTER → 2024-02-14 13:36 | Outpatient (BNVA) | payer MEDICARE, SELFPAY | PROVIDERS: PCP Nurse Practitioner Family; Referring Provider Nurse Practitioner Family; Visit Provider Nurse Practitioner Family | DX: J84.9 Interstitial pulmonary disease, unspecified (principal); J47.9 Bronchiectasis, uncomplicated; R05.3 Chronic cough; U09.9 Post COVID-19 condition, unspecified; R06.09 Other forms of dyspnea; R91.1 Solitary pulmonary nodule; Z85.3 Personal history of malignant neoplasm of breast; Z92.3 Personal history of irradiation | CPT/HCPCS: 94640; 99202 ==

== ENCOUNTER 2024-02-25 13:20 | Outpatient (AMB) | payer MEDICARE, SELFPAY ==
[2024-02-25 14:11] VITALS: BP 130/76; PULSE 73; TEMP 36.6; O2SAT 98; BMI 33.2
--- NOTE | 2024-02-25 14:11 | MHC.OFFWIV ---
Intake Vital Signs 02/25/24 14:11 Height 5 ft 6 in Weight 206 lb BMI 33.2 BP 130/76 Blood Pressure Location Lt brachial Position Sitting Pulse 73 Pulse Source Pulse Oximeter Temp 97.9 F Temp Source Temporal Artery Scan Pulse Oximetry (%) 98 Oxygen Delivery Method Room Air Intake Visit Reasons: EST/dizziness,nausea (lobby) Intake Note: pt is here today for dizziness nausea started Patient Tobacco Use Status: Never used Tobacco Allergies adhesive Allergy (Severe, Verified 02/25/24 15:16) Hives ondansetron [From ZOFRAN ( HYDROCHLORIDE)] Allergy (Unknown, Verified 02/25/24 15:16) ANAPHYLAXIS Medication List - Last Reconciled 02/25/24 by Joshua Delcid, DA albuterol sulfate 90 mcg/actuation 2 puffs inhalation Q6H PRN aspirin 81 mg PO DAILY atorvastatin 20 mg PO BEDTIME benzonatate 200 mg PO BID-TID PRN bupropion HCl XL 300 mg PO DAILY clonazepam 0.5 mg PO TID PRN 30 days cranberry conc-ascorbic acid 4,200-20 mg 20 caps PO DAILY esomeprazole magnesium (Nexium) 40 mg PO DAILY gabapentin 300 mg PO BEDTIME levothyroxine 100 mcg PO DAILY linaclotide (Linzess) 145 mcg PO QAM metoclopramide HCl (Reglan) 5 mg PO QIDACHS sennosides (Senna Laxative) 17.2 mg (2 x 8.6 mg) PO BEDTIME trazodone 100 mg PO BEDTIME vitamin B complex 1 cap PO DAILY Do you need a note to return to daycare/school/sports/work: No HPI HPI Comments History of Present Illness Details Patient is a 73-year-old female in today for a sick visit. Patient states that while she was doing physical therapy she had 5 dizzy and lightheaded and had to stop. Patient also feels like her heart rate started racing. Two days later while she was shopping at the grocery store she had similar feelings had to stop shopping. The episode of dizziness occurred once more 1 day later. Patient denies fall. Patient has past medical history significant for lupus, vertigo, chronic cough, fibromyalgia, chronic nausea, constipation. Patient denies chest pain, shortness a breath, vomiting, diarrhea. Patient denies numbness. [facility] Medical History Right shoulder pain Nausea and vomiting Pre-op examination History of breast cancer Skin lesions Screening for lipid disorders Bilateral knee pain Irritable bowel syndrome with constipation Screening for colon cancer Physical exam History of sepsis CKD (chronic kidney disease) CLYDE (obstructive sleep apnea) Clostridium difficile infection Lupus Glaucoma History of kidney disease Sleep apnea Hypothyroidism Closed fracture of neck of left femur Breast cancer Fibromyalgia Surgical History H/O shoulder surgery Hx of tonsillectomy History of hip surgery History of esophagogastroduodenoscopy (EGD) H/O colonoscopy History of cholecystectomy Family History Father Heart attack Clogged artery (heart) COPD (chronic obstructive pulmonary disease) Mother Stroke Clogged artery (heart) Sister COPD (chronic obstructive pulmonary disease) Brother COPD (chronic obstructive pulmonary disease) Social History Household Members: None Housing: Apartment Housing Other:: retirement Patient Tobacco Use Status: Never used Tobacco e-Cigarette/Vaping Use: Never Used Second Hand Smoke Exposure: No service: No Current occupational status: retired Cognitive needs: No Hearing needs: No Vision needs: No Physical Exam Vital Signs: Last Vital Signs Temp 97.9 F 02/25/24 14:11 Pulse 73 02/25/24 14:11 BP 130/76 02/25/24 14:11 Pulse Ox 98 02/25/24 14:11 Oxygen Delivery Method Room Air 02/25/24 14:11 BMI result Body Mass Index 33.2 Const Other: Appearance: Alert.? Oriented X3.? No acute distress.? Head: Normocephalic, atraumatic, no step-offs or deformities Eyes: Pupils equal, round and reactive to light.?EOMI. Sclera white. ENT: Pharynx normal. TM intact and pearly de la torre. ? Neck: Normal inspection.? Neck supple.?Full ROM. CVS: Normal heart rate and rhythm.? Pulses normal.? Respiratory: No respiratory distress.? Breath sounds normal.? Neuro: Oriented X 3.? No motor deficit.? No sensory deficit. CN 2-12 intact. Negative romberg. + dixhallpike maneuver. Orientation/consciousness: patient oriented x3 Eyes Pupils: Equal, round and reactive pupils present EOM: Nystagmus present Neuro General: patient oriented x3, CN's II-XI intact bilaterally and [place] Hallpike Cranial nerves: Yes CN's II-XII intact bilaterally, Yes Equal, round and reactive pupils present, Yes Bilaterally intact EOM present, Yes Midline tongue present and Yes Nystagmus present Cognition (Neuro): normal cognition Gait exam (Neuro): Normal gait present Motor exam (neuro): 5/5 motor strength present throughout and Pronator motor function not present Coordination: valipy-pq-bgdg test normal Romberg Test: Negative Office Procedures EKG 15925-Tbzhpssmjqxydgats, Complete Assessment & Plan Assessment & Plan (1) Dizziness: Comment: Patient had in office EKG. Positive for Naz-Hallpike maneuver. Will order labs. Patient does not utilize meclizine. Will refill prescription. Patient has been educated on signs of worsening symptoms and when to report back to the walk-in or when to present to the ED. Patient was also started on metoclopramide recently which could be exacerbating/causing dizziness. Code(s): R42 - Dizziness and giddiness Plan: Take your medications as prescribed. If you were prescribed antibiotics today, it is important that you take your medication to their entirety, do not skip any doses, do not finish them early. Follow-up with your primary care provider this week. Return to the emergency department with new or worsening symptoms. Such as fevers, chills, chest pain, shortness of breath, nausea, vomiting, dizziness, headache, vision changes, lethargy In case of emergency call 911 Plan Follow up with pcp. Orders: Orders AMB EKG-In Office Today R42 - Dizziness and giddiness Comprehensive Met. Panel Today R42 - Dizziness and giddiness Complete Blood Count Auto Diff Today R42 - Dizziness and giddiness Medications: New meclizine 25 mg PO DAILY PRN 20 tabs 0RF motion sickness Coding Level of Care Code Est Pt Level 3 (18212) Diagnoses Dizziness R42 CPT Codes EKG - CPT: 20450-Wbilkbfvmneikqniu, Complete ([id number]) Time Spent (min) 28
== END 2024-02-25 15:23 | disposition home or self-care (01) ==
PROVIDERS: PCP Nurse Practitioner Family; Visit Provider Nurse Practitioner Primary Care
DX: R42 Dizziness and giddiness (principal)
CPT/HCPCS: 93000; 99213

== ENCOUNTER 2024-02-25 15:12 | Outpatient (REF) | payer MEDICARE, SELFPAY ==
[2024-02-25 16:00] LABS: MANUAL DIFF FLAG NO
[2024-02-25 16:07] LABS: Basophils Absolute Auto 0.1 X10*3/uL (0.0-0.2); Basophils Percent Auto 0.5 % (0-2); Eosinophils Absolute Auto 0.2 X10*3/uL (0.0-0.4); Eosinophils Percent Auto 1.9 % (0-4); Hematocrit 42.9 % (37.0-47.0); Hemoglobin 13.8 g/dl (12.0-16.0); Imm Gran Abs Auto 0.03 X10*3/uL (0.00-0.03); Imm Gran Pct Auto 0.3 % (0.0-0.4); Lymphocytes Absolute Auto 1.9 X10*3/uL (1.2-4.9); Lymphocytes Percent Auto 19.2 % (20-40); Mean Corpuscular HGB Conc 32.2 g/dl (31.0-35.0); Mean Corpuscular Hemoglobin 28.4 pg (27.0-33.0); Mean Corpuscular Volume 88.3 fL (80.0-98.0); Mean Platelet Volume 10.6 fL (9.4-12.3); Neutrophils Absolute Auto 6.6 x10*3/uL (2.0-8.3); Neutrophils Percent Auto 68.1 % (45-73); Platelet Count 210 X10*3/uL (160-400); Red Blood Count 4.86 X10*6/uL (4.20-5.50); Red Cell Distribution Width 14.6 % (11.0-16.0); White Blood Count 9.6 X10*3/uL (4.8-10.8)
[2024-02-25 16:44] LABS: Alanine Aminotransferase 17 U/L (0-31); Albumin Level 3.8 g/dL (3.5-5.0); Alkaline Phosphatase 114 U/L (39-117); Anion Gap 12 (12-20); Aspartate Amino Transferase 16 U/L (5-31); Bilirubin Total 0.3 mg/dL (0.0-1.0); Blood Urea Nitrogen 20 mg/dL (9-16); Calcium 9.8 mg/dL (8.4-10.2); Carbon Dioxide 24 mmol/L (22-29); Chloride 107 mmol/L (96-108); Estimated Glomerular Filt Rate > 60; Glucose Random 83 mg/dL (60-115); Sodium 139 mmol/L (135-145); Total Protein 6.4 g/dL (6.5-8.0)
== END 2024-02-25 15:13 | disposition home or self-care (01) ==
LOC: HO.HMGCLDS 15:12
PROVIDERS: PCP Nurse Practitioner Family; Visit Provider Nurse Practitioner Primary Care
DX: R42 Dizziness and giddiness (principal)
CPT/HCPCS: 36415; 80053; 85025

== ENCOUNTER 2024-03-05 12:55 | Outpatient (AMB) | payer MEDICARE, SELFPAY ==
[2024-03-05 13:02] VITALS: BP 145/64; PULSE 78; BMI 33.1
--- NOTE | 2024-03-05 13:02 | MHC.OFFVIS ---
Vital Signs 03/05/24 13:02 Height 5 ft 6 in Weight 205 lb BMI 33.1 BP 145/64 H Blood Pressure Location Lt brachial Position Sitting Pulse 78 Intake Visit Reasons: 3 weeks Intake Note: Reema returns to in office visit today in follow up of CIC. CC: Patient c/o vertigo for 2 weeks now and nausea. Patient states that she can't take the Linzess because every time she takes it she has loose stools all day. 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 Accompanied by: Self / Same As Patient Allergies adhesive Allergy (Severe, Verified 03/05/24 13:13) Hives ondansetron [From ZOFRAN ( HYDROCHLORIDE)] Allergy (Unknown, Verified 03/05/24 13:13) ANAPHYLAXIS HPI HPI 3 weeks: Details: Assessment & Plan (1) Chronic idiopathic constipation: Code(s): K59.04 - Chronic idiopathic constipation Category: Medical (2) Early satiety: Code(s): R68.81 - Early satiety Category: Medical (3) Nausea: Code(s): R11.0 - Nausea Category: Medical (4) Delayed gastric emptying: Code(s): K30 - Functional dyspepsia Category: Medical Plan With the Linzess 145mcg she is not moving her bowels every day and she has trouble with incomplete evacuation despite soft stools. Since the GES shows mild delay, will start a trial of reglan 5mg qid. Also consider adding senna qhs with the LInzess 145mcg. She did develop an allergic rxn to zofran after years of use, so she is encouraged to stop the reglan if anything happens she is to take benadryl and she was also educated regarding possible s/e that would necessitate discontinuance including SS and tremor. Her nausea continues. SHE CONTINUES ON HER GENERIC NEXIUM. ROV 3 weeks. Medications: New sennosides (Senna Laxative) 17.2 mg (2 x 8.6 mg) PO BEDTIME 60 tabs 3RF K59.04 - Chronic idiopathic constipation metoclopramide HCl (Reglan) 5 mg PO QIDACHS 120 tabs 3RF K30 - Functional dyspepsia, R11.0 - Nausea, R68.81 - Early satiety Discontinued bisacodyl Discontinued Reason: Doctor's Order 10 mg (2 x 5 mg) PO BEDTIME 30 days 60 tabs 6RF TODAY'S VISIT She is having too many loose stools with the 145mcg Linzess. This may be r/t the reglan, but she does not think it is helping with the early satiety. Will stop for now, as she is having vertigo and this is causing nausea. Will turn white and have severe tachycardia when she has an attack. Will get her a 14 day holter monitor. She is not having rabbit pellet stool with just senna now. Reduce to 72mcg LInzess. ROV 6 weeks. [facility] Medical History (Updated 03/05/24 @ 16:53 by LESLIE Larsen) Pulmonary nodule Preoperative clearance Early satiety Nausea Right shoulder pain Nausea and vomiting Pre-op examination History of breast cancer Skin lesions Screening for lipid disorders Bilateral knee pain Irritable bowel syndrome with constipation Screening for colon cancer Physical exam History of sepsis CKD (chronic kidney disease) CLYDE (obstructive sleep apnea) Clostridium difficile infection Lupus Glaucoma History of kidney disease Sleep apnea Hypothyroidism Closed fracture of neck of left femur Breast cancer Fibromyalgia Surgical History H/O shoulder surgery Hx of tonsillectomy History of hip surgery History of esophagogastroduodenoscopy (EGD) H/O colonoscopy History of cholecystectomy Family History Father Heart attack Clogged artery (heart) COPD (chronic obstructive pulmonary disease) Mother Stroke Clogged artery (heart) Sister COPD (chronic obstructive pulmonary disease) Brother COPD (chronic obstructive pulmonary disease) Social History Household Members: None Housing: Apartment Housing Other:: jail Patient Tobacco Use Status: Never used Tobacco e-Cigarette/Vaping Use: Never Used Second Hand Smoke Exposure: No service: No Current occupational status: retired Cognitive needs: No Hearing needs: No Vision needs: No Review of Systems Const Denies fatigue, Denies fever(s), Reports headache(s), Denies night sweats, Denies poor appetite and Denies weight loss Eyes Details: glasses Reports requires corrective lenses ENT Reports Normal hearing present, Denies dental pain, Denies dysphagia, Reports vertigo, Reports headache(s), Denies hearing loss, Denies mouth pain, Denies odynophagia, Denies throat swelling, Denies tongue swelling and Reports other (Dentition adequate) Card Reports lightheadedness and Reports palpitations Resp Reports no additional complaints GI Details: Denies abdominal pain, Denies melena, Denies bloating, Denies hematochezia, Reports constipation, Denies GI cramping, Denies dysphagia, Denies excessive flatus, Denies early satiety, Reports heartburn, Denies diarrhea, Reports nausea, Denies odynophagia, Denies vomiting and Denies hematemesis Skin/Breast Denies pruritus, Denies lesions, Denies rash and Denies jaundice Neuro Reports Normal hearing present, Denies Abnormal speech present, Reports vertigo and Reports headache(s) Endo Denies fatigue and Reports palpitations Aller/Immun Denies throat swelling and Denies tongue swelling Physical Exam Vital Signs: Last Vital Signs Pulse 78 03/05/24 13:02 BP 145/64 H 03/05/24 13:02 BMI result Body Mass Index 33.1 Const General: cooperative, no acute distress, well developed and well groomed Nutritional Appearance: well nourished and obese Orientation/consciousness: oriented to person, oriented to place and oriented to time Limitations: No language barrier HEENT Head: Yes normocephalic and Yes atraumatic Eyes General: appearance normal, both eyes and all related structures Pupils: Equal, round and reactive pupils present EOM: Nystagmus present Neck Neck: Yes normal visual inspection and Yes no lymphadenopathy Thyroid: Thyroid normal Resp Effort & Inspection: normal respiratory effort and able to speak in complete sentences Auscultation: clear to auscultation bilaterally Cardio Rate: regular rate Rhythm: regular rhythm Heart sounds: Normal, physiologic split S2 sound present Peripheral pulses: radial pulses present and posterior tibial pulses present GI Inspection: No distended, Yes Abdominal panniculus present and Yes obesity Palpation (GI): Soft to palpation, nontender, no guarding, not rigid and No hepatosplenomegaly present Percussion: Yes normal to percussion Auscultation: normal bowel sounds Rectal Exam - Female: deferred Skin General skin exam: no rashes or lesions noted, turgor normal, skin not dry, no jaundice, No spider nevi and no striae Rashes: no rashes Nails: normal Neuro General: oriented to person, oriented to place and oriented to time Cranial nerves: Yes Equal, round and reactive pupils present, Yes Normal hearing present and Yes Nystagmus present vertical Speech: No Abnormal speech present Extrem General: Yes normal to inspection, No clubbing, No cyanosis and No edema Psych Appearance: grossly normal and well kempt Mental Status: mental status grossly normal Speech and movement: Normal speech and movement present Affect: normal affect Attitude: cooperative Thought process: Normal thought process present and not confabulating Thought content: Normal thought content present Insight: Fair insight present (Psych) Judgement: Fair judgement present (Psych) Assessment & Plan Assessment & Plan (1) Chronic idiopathic constipation: Code(s): K59.04 - Chronic idiopathic constipation Category: Medical (2) Delayed gastric emptying: Code(s): K30 - Functional dyspepsia Category: Medical (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 This may be r/t the reglan, but she does not think it is helping with the early satiety. Will stop for now, as she is having vertigo and this is causing nausea. Will turn white and have severe tachycardia when she has an attack. Will get her a 14 day holter monitor. She is not having rabbit pellet stool with just senna now. Reduce to 72mcg LInzess. ROV 6 weeks. Orders: Orders ECG 14 day holter monitor Today R00.0 - Tachycardia, unspecified Medications: New linaclotide (Linzess) 72 mcg PO QAM 30 caps 6RF K59.04 - Chronic idiopathic constipation Discontinued linaclotide (Linzess) Take first thing in the morning with a full glass of water. Discontinued Reason: Doctor's Order 145 mcg PO QAM 30 caps 3RF K58.1 - Irritable bowel syndrome with constipation On Hold metoclopramide HCl (Reglan) Hold Comment: Doctor's Order 5 mg PO QIDACHS 120 tabs 3RF K30 - Functional dyspepsia, R11.0 - Nausea, R68.81 - Early satiety Coding Level of Care Code Est Pt Level 3 (69009) Diagnoses Chronic idiopathic constipation K59.04 Delayed gastric emptying K30 Lakhani esophagus K22.70 Tachycardia R00.0 Dizziness R42
== END 2024-03-05 13:55 | disposition home or self-care (01) ==
PROVIDERS: PCP Nurse Practitioner Family; Visit Provider Nurse Practitioner
DX: K59.04 Chronic idiopathic constipation (principal); K30 Functional dyspepsia; K22.70 Barrett's esophagus without dysplasia; R00.0 Tachycardia, unspecified; R42 Dizziness and giddiness
CPT/HCPCS: 99213

== ENCOUNTER → 2024-03-05 12:55 | Outpatient (BNVA) | payer MEDICARE, SELFPAY | PROVIDERS: PCP Nurse Practitioner Family; Visit Provider Nurse Practitioner | DX: K59.04 Chronic idiopathic constipation (principal); K30 Functional dyspepsia; K22.70 Barrett's esophagus without dysplasia; R00.0 Tachycardia, unspecified; R42 Dizziness and giddiness | CPT/HCPCS: 99212 ==

== ENCOUNTER 2024-03-09 13:00 | Outpatient (RCR) | payer MEDICARE, SELFPAY | END 2024-04-13 09:07 | disposition home or self-care (01) | LOC: HO.PTCHIC 13:00 | PROVIDERS: PCP Nurse Practitioner Family; Visit Provider Orthopaedic Surgery | DX: M75.41 Impingement syndrome of right shoulder (principal); M75.21 Bicipital tendinitis, right shoulder; M75.42 Impingement syndrome of left shoulder; M75.22 Bicipital tendinitis, left shoulder | CPT/HCPCS: 97110; 97140; 97162 ==

== ENCOUNTER → 2024-03-23 13:28 | Outpatient (REF) | payer MEDICARE, SELFPAY ==
--- NOTE | 2024-03-23 13:31 | HM_ITS ---
* Total monitoring time 7 days. * Underlying rhythm is sinus with an average rate of 80/Min. Range 51 to 140/Min. * Rare supraventricular ectopy. Very brief runs. * Rare ventricular ectopy. * No significant pauses or AV blocks. * No patient markers or diary events. MTDD
[2024-03-23 14:42] LABS: Alanine Aminotransferase 13 U/L (0-31); Albumin Level 3.8 g/dL (3.5-5.0); Alkaline Phosphatase 126 U/L (39-117); Anion Gap 14 (12-20); Aspartate Amino Transferase 16 U/L (5-31); Bilirubin Total 0.3 mg/dL (0.0-1.0); Blood Urea Nitrogen 19 mg/dL (9-16); Calcium 9.8 mg/dL (8.4-10.2); Carbon Dioxide 26 mmol/L (22-29); Chloride 107 mmol/L (96-108); Estimated Glomerular Filt Rate 56; Glucose Random 92 mg/dL (60-115); Potassium 4.1 mmol/L (3.3-5.1); Sodium 143 mmol/L (135-145); Total Protein 6.4 g/dL (6.5-8.0)
== END ==
LOC: HO.CARD 13:28
PROVIDERS: PCP Nurse Practitioner Family; Visit Provider Nurse Practitioner
DX: R00.0 Tachycardia, unspecified (principal); R55 Syncope and collapse; R06.09 Other forms of dyspnea; Q89.09 Congenital malformations of spleen
CPT/HCPCS: 36415; 80053; 93246

== ENCOUNTER → 2024-03-23 13:31 | Outpatient (BNV) | payer MEDICARE, SELFPAY | PROVIDERS: PCP Nurse Practitioner Family; Visit Provider Internal Medicine | DX: I49.3 Ventricular premature depolarization (principal) | CPT/HCPCS: 93248 ==

== ENCOUNTER 2024-04-06 15:04 | Outpatient (REF) | payer MEDICARE, SELFPAY ==
--- NOTE | ~2024-04-06 | CT_ITS ---
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 COMPARISON: CT abdomen and pelvis 01/09/2011. CT chest 01/24/2024. TECHNIQUE: Multidetector volumetric images were obtained from the superior aspect of the liver through the pubic symphysis following administration 85 mL of Omnipaque 350 intravenous contrast. Sagittal and coronal reformatted images were obtained on the technologist's workstation. Oral Contrast: No. This CT examination was performed using dose optimization techniques as appropriate, variously including the following: *Automated exposure control. *Adjustment of mA and/or kV according to patient size (this includes techniques or standardized protocols for targeted exams where dose is matched to indication/reason for exam; i.e. extremities or head). *Use of iterative reconstruction technique. DLP: 724 mGy-cm FINDINGS: LUNG BASES: The visualized lung bases are unremarkable. LIVER, GALLBLADDER, AND BILIARY TREE: The liver is mildly enlarged at 17.5 cm in cephalocaudad dimension. No focal hepatic lesion or biliary ductal dilatation is present. Status post cholecystectomy. PANCREAS: Unremarkable. SPLEEN: Spleen is of normal size. Multiple splenic hypodensities are seen, some measuring near water density with some a tiny bit higher. Multiple splenic masses were also present on the 2010 CT abdomen and pelvis, 13 years ago. Punctate splenic calcification is seen. ADRENAL GLANDS: Unremarkable. KIDNEYS AND URETERS: The right kidney appears normal aside from some minimal scarring. The left kidney is smaller than the right with moderate scarring. No renal masses. No pelvocaliectasis. BLADDER: Unremarkable. GASTROINTESTINAL TRACT: The small and large bowel are unremarkable. The appendix is unremarkable. ABDOMINAL WALL: No significant hernia is appreciated. LYMPH NODES: No retroperitoneal lymphadenopathy. VASCULAR: Calcific atherosclerotic changes are present in the aorta and iliac vessels. There is no evidence of an abdominal aortic aneurysm. PELVIC VISCERA: Unremarkable. OSSEOUS STRUCTURES: Mild degenerative changes in the spine. Three intramedullary screws are present through the left femoral neck. CT/CT abdomen pelvis w IV con IMPRESSION: 1. Multiple splenic hypodensities are present, some measuring near water density with some a tiny bit higher. Splenic masses are almost always benign. These have been present for over 13 years and should require no follow-up. 2. Incidental note made of mild hepatomegaly, cholecystectomy, bilateral renal scarring, left greater than right and degenerative changes in the spine. Fleischner guidelines were followed.
[2024-04-06] MEDS: iohexoL 350 MG/ML 100 ML INFUS..BTL 85 ML IV (16:21)
== END 2024-04-06 15:05 | disposition home or self-care (01) ==
LOC: HO.CT 15:04
PROVIDERS: PCP Nurse Practitioner Family; Visit Provider Nurse Practitioner Family
DX: Q89.09 Congenital malformations of spleen (principal)
CPT/HCPCS: 74177; Q9967

== ENCOUNTER 2024-04-17 12:16 | Outpatient (AMB) | payer MEDICARE, SELFPAY ==
--- NOTE | 2024-04-17 12:21 | A.OFFVIS_ITS ---
Vital Signs 04/17/24 12:38 Height 5 ft 6 in Weight 209 lb 7.026 oz BMI 33.8 BP 134/62 Blood Pressure Location Lt brachial Position Sitting Pulse 76 Pulse Source Pulse Oximeter Pulse Oximetry (%) 95 Oxygen Delivery Method Room Air Intake Visit Reasons: 6 week follow up Intake Note: Reema presents in office today for a scheduled 6 week FUV. CC; Pt reports that she is still not managing well with the linzess. Pt has stopped taking the medication as of this moment. Pt reports that she is still struggling with management of chronic sx, no new concerns or sx to report at this time. 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 This may be r/t the reglan, but she does not think it is helping with the early satiety. Will stop for now, as she is having vertigo and this is causing nausea. Will turn white and have severe tachycardia when she has an attack. Will get her a 14 day holter monitor. She is not having rabbit pellet stool with just senna now. Reduce to 72mcg LInzess. ROV 6 weeks. Orders: Orders ECG 14 day holter monitor Today R00.0 - Tachycardia, unspecified Medications: New linaclotide (Linzess) 72 mcg PO QAM 30 caps 6RF K59.04 - Chronic idiopathic constipation Discontinued linaclotide (Linzess) Take first thing in the morning with a full glass of water. Discontinued Reason: Doctor's Order 145 mcg PO QAM 30 caps 3RF K58.1 - Ir ritable bowel syndrome with constipation On Hold metoclopramide HCl (Reglan) Hold Comment: Doctor's Order 5 mg PO QIDACHS 120 tabs 3RF K30 - Functional dyspepsia, R11.0 - Nausea, R68.81 - Early satiety HOLTER MONITOR REPORT 04/05/24 Date of Service: 03/23/24 Procedure(s): ECG 14 day holter monitor Accession Number(s): cc: Diaz,December ANP-C~ * Total monitoring time 7 days. * Underlying rhythm is sinus with an average rate of 80/Min. Range 51 to 140/Min. * Rare supraventricular ectopy. Very brief runs. * Rare ventricular ectopy. * No significant pauses or AV blocks. * No patient markers or diary events. Dictated By: Tani Maria MD TODAY'S VISIT We review the holter monitor,and her near syncope and fainting is continuing with any exertion. This is very life limiting for her. 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 May need a rate control prn use for SVT - but I will send her to cardiology for complete assessment and treatment. She still can not tolerate her Linzess 72mcg, so she is taking 1 senna a night, since her stool is still mixed with some incomplete evacuation, I suggest she take 2 qhs. She is not taking reglan Her colonoscopy is upcoming on Saturday. She had one bad experience with a past scope (not at our facility) where her vocal cords were damaged. PCP ordered a CT r/t abnormal liver finding on my chest CT I read the report and find no significant abnormality. Report is not yet read. Keep appt after scope. [facility] Medical History (Updated 05/12/24 @ 14:34 by Lo Coe NP) Bilateral knee pain Postmenopausal Breast cancer Fracture of femoral neck, left Pulmonary nodule Preoperative clearance Early satiety Nausea Right shoulder pain Nausea and vomiting Pre-op examination History of breast cancer Skin lesions Screening for lipid disorders Irritable bowel syndrome with constipation Screening for colon cancer Physical exam History of sepsis CKD (chronic kidney disease) CLDYE (obstructive sleep apnea) Clostridium difficile infection Lupus Glaucoma History of kidney disease Sleep apnea Hypothyroidism Closed fracture of neck of left femur Fibromyalgia Surgical History H/O shoulder surgery Hx of tonsillectomy History of hip surgery History of esophagogastroduodenoscopy (EGD) H/O colonoscopy History of cholecystectomy Family History Father Heart attack Clogged artery (heart) COPD (chronic obstructive pulmonary disease) Mother Stroke Clogged artery (heart) Sister COPD (chronic obstructive pulmonary disease) Brother COPD (chronic obstructive pulmonary disease) Social History Household Members: None Housing: Apartment Housing Other:: retirement Patient Tobacco Use Status: Never used Tobacco e-Cigarette/Vaping Use: Never Used Second Hand Smoke Exposure: No service: No Current occupational status: retired Cognitive needs: No Hearing needs: No Vision needs: No Review of Systems Const Denies fatigue, Denies fever(s), Denies night sweats, Denies poor appetite and Denies weight loss ENT Reports Normal hearing present, Denies dental pain, Denies dysphagia, Denies hearing loss, Denies mouth pain, Denies odynophagia, Denies throat swelling, Denies tongue swelling and Reports other (Dentition adequate) Card Reports palpitations Resp Reports no additional complaints GI Details: Denies abdominal pain, Denies melena, Denies bloating, Denies hematochezia, Reports constipation, Denies GI cramping, Denies dysphagia, Denies excessive flatus, Denies early satiety, Reports heartburn, Denies diarrhea, Denies nausea, Denies odynophagia, Denies vomiting and Denies hematemesis Skin/Breast Denies pruritus, Denies lesions, Denies rash and Denies jaundice Neuro Reports Normal hearing present and Denies Abnormal speech present Endo Denies fatigue and Reports palpitations Aller/Immun Denies throat swelling and Denies tongue swelling Physical Exam Vital Signs: Last Vital Signs Pulse 76 04/17/24 12:38 BP 134/62 04/17/24 12:38 Pulse Ox 95 04/17/24 12:38 Oxygen Delivery Method Room Air 04/17/24 12:38 BMI result Body Mass Index 33.8 Const General: cooperative, no acute distress, well developed and well groomed Nutritional Appearance: well nourished and obese Orientation/consciousness: oriented to person, oriented to place and oriented to time Limitations: No language barrier HEENT Head: Yes normocephalic and Yes atraumatic Eyes General: appearance normal, both eyes and all related structures Pupils: Equal, round and reactive pupils present Neck Neck: Yes normal visual inspection and Yes no lymphadenopathy Thyroid: Thyroid normal Resp Effort & Inspection: normal respiratory effort and able to speak in complete sentences Auscultation: clear to auscultation bilaterally Cardio Rate: regular rate Rhythm: regular rhythm Heart sounds: Normal, physiologic split S2 sound present Peripheral pulses: radial pulses present and posterior tibial pulses present GI Inspection: No distended, No Abdominal panniculus present and Yes obesity Palpation (GI): Soft to palpation, nontender, no guarding, not rigid and No hepatosplenomegaly present Percussion: Yes normal to percussion Auscultation: normal bowel sounds Rectal Exam - Female: deferred Skin General skin exam: no rashes or lesions noted, turgor normal, skin not dry, no jaundice, No spider nevi and no striae Rashes: no rashes Nails: normal Neuro General: oriented to person, oriented to place and oriented to time Cranial nerves: Yes Equal, round and reactive pupils present and Yes Normal hearing present Speech: No Abnormal speech present Extrem General: Yes normal to inspection, No clubbing, No cyanosis and No edema Psych Appearance: grossly normal and well kempt Mental Status: mental status grossly normal Speech and movement: Normal speech and movement present Affect: normal affect Attitude: cooperative Thought process: Normal thought process present and not confabulating Thought content: Normal thought content present Insight: Good insight present (Psych) Judgement: Good judgement present (Psych) Results Reviewed Results Reviewed: HOLTER MONITOR REPORT 04/05/24 Date of Service: 03/23/24 Procedure(s): ECG 14 day holter monitor Accession Number(s): cc: Maxine Diaz ANP-C~ * Total monitoring time 7 days. * Underlying rhythm is sinus with an average rate of 80/Min. Range 51 to 140/Min. * Rare supraventricular ectopy. Very brief runs. * Rare ventricular ectopy. * No significant pauses or AV blocks. * No patient markers or diary events. 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 This is very life limiting for her. 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 May need a rate control prn use for SVT - but I will send her to cardiology for complete assessment and treatment. She still can not tolerate her Linzess 72mcg, so she is taking 1 senna a night, since her stool is still mixed with some incomplete evacuation, I suggest she take 2 qhs. She is not taking reglan Her colonoscopy is upcoming on Saturday. She had one bad experience with a past scope (not at our facility) where her vocal cords were damaged. PCP ordered a CT r/t abnormal liver finding on my chest CT I read the report and find no significant abnormality. Report is not yet read. Keep appt after scope. Colonoscopy Biopsy Orders: Referrals Cardiology Referral R55 - Syncope and collapse, R06.09 - Other forms of dyspnea Medications: Refilled esomeprazole magnesium (Nexium) 40 mg PO DAILY 30 caps 6RF Discontinued prochlorperazine Discontinued Reason: Doctor's Order 25 mg [place] BID PRN 4 ea 0RF nausea and vomiting linaclotide Discontinued Reason: Doctor's Order 72 mcg PO QAM 30 caps 6RF K59.04 - Chronic idiopathic constipation metoclopramide HCl Discontinued Reason: Doctor's Order 5 mg PO QIDACHS 120 tabs 3RF K30 - Functional dyspepsia, R11.0 - Nausea, R68.81 - Early satiety Coding Level of Care Code Est Pt Level 3 (93287) Diagnoses Near syncope R55 Tachycardia R00.0 Delayed gastric emptying K30 Chronic idiopathic constipation K59.04 Lakhani esophagus K22.70 Multiple adenomatous polyps D36.9 Dyspnea on exertion R06.09
[2024-04-17 12:38] VITALS: BP 134/62; PULSE 76; O2SAT 95; BMI 33.8
== END 2024-04-17 13:27 | disposition home or self-care (01) ==
PROVIDERS: PCP Nurse Practitioner Family; Visit Provider Nurse Practitioner
DX: R55 Syncope and collapse (principal); R00.0 Tachycardia, unspecified; K30 Functional dyspepsia; K59.04 Chronic idiopathic constipation; K22.70 Barrett's esophagus without dysplasia; D36.9 Benign neoplasm, unspecified site; R06.09 Other forms of dyspnea
CPT/HCPCS: 99213

== ENCOUNTER → 2024-04-17 12:16 | Outpatient (BNVA) | payer MEDICARE, SELFPAY | PROVIDERS: PCP Nurse Practitioner Family; Visit Provider Nurse Practitioner | DX: K59.04 Chronic idiopathic constipation (principal); K30 Functional dyspepsia; K22.70 Barrett's esophagus without dysplasia; D36.9 Benign neoplasm, unspecified site; R11.0 Nausea; R00.0 Tachycardia, unspecified; R42 Dizziness and giddiness; R68.81 Early satiety; R55 Syncope and collapse; R06.09 Other forms of dyspnea | CPT/HCPCS: 99212 ==

== ENCOUNTER 2024-04-20 10:31 | Day surgery (SDC) | payer MEDICARE, SELFPAY ==
[2024-04-20 11:42] VITALS: BMI 33.2
[2024-04-20 11:44] VITALS: BP 135/66; PULSE 78; RESP 16; TEMP 37.3; O2SAT 96
--- NOTE | 2024-04-20 12:06 | MHC.SHP ---
Pre-Procedural Eval Section A - 24 Hr Update-Section A only Date of Service: 04/20/24 The patient is an INPATIENT: No Changes since office visit: Yes Patient answered all questions; No Cold of Flu in the past 2 weeks, No New Medical Problems and No Changes in Medication The patient has been examined within 24 hours of the surgical procedure. The History & Physical has been completed within 30 days and I have reviewed it.: Yes Section B - Complete if H&P > 30 days Chief Complaint: screening, FU of Lakhani's esophagus Allergies: Allergies Allergy/AdvReac Type Severity Reaction Status Date / Time adhesive Allergy Severe Hives Verified 04/17/24 12:34 ondansetron Allergy Unknown ANAPHYLAXIS Verified 04/17/24 12:34 [From ZOFRAN ( HYDROCHLORIDE)] Exam Surgical H&P Exam: Normal: Heart, Normal: Lungs, Normal: Extremities and Normal: Abdomen Plan Diagnosis/Plan: Change (proceed with EGD and Colon) I have reviewed the history and physical and performed a pertinent physical examination on my patient. No changes have occurred unless specified. Time Spent With Patient Time: Total time managing care of this patient today ____ minutes.
--- NOTE | 2024-04-20 12:48 | HO.ANESPROP2 ---
[facility] Active Problems Active Problems: All Active Problems Near syncope (Acute) Tachycardia (Acute) Dizziness (Acute) Multiple pulmonary nodules (Acute) Dyspnea on exertion (Acute) Bronchiectasis (Acute) Delayed gastric emptying (Acute) Spleen anomaly (Acute) Interstitial lung disease (Acute) Chronic cough (Acute) Upper respiratory infection (Acute) Elevated alkaline phosphatase level (Acute) Restless leg syndrome (Acute) Osteoarthritis (Acute) Multiple adenomatous polyps (Acute) Chronic idiopathic constipation (Acute) Sleep apnea (Acute) History of kidney disease (Acute) Fibromyalgia (Acute) Osteoarthritis of right knee (Acute) Right rotator cuff tear (Acute) Ascending aorta dilatation (Acute) Dyslipidemia (Acute) Hypothyroidism (Acute) Murmur (Acute) Raynauds disease (Acute) Memory loss (Acute) Lakhani esophagus (Acute) Osteoarthritis of left knee (Acute) Past Medical History Medical History Postmenopausal Breast cancer Fracture of femoral neck, left Pulmonary nodule Preoperative clearance Early satiety Nausea Right shoulder pain Nausea and vomiting Pre-op examination History of breast cancer Skin lesions Screening for lipid disorders Bilateral knee pain Irritable bowel syndrome with constipation Screening for colon cancer Physical exam History of sepsis CKD (chronic kidney disease) CLYDE (obstructive sleep apnea) Clostridium difficile infection Lupus Glaucoma History of kidney disease Sleep apnea Hypothyroidism Closed fracture of neck of left femur Fibromyalgia Family History Family History Father Heart attack Clogged artery (heart) COPD (chronic obstructive pulmonary disease) Mother Stroke Clogged artery (heart) Sister COPD (chronic obstructive pulmonary disease) Brother COPD (chronic obstructive pulmonary disease) Family history of problems with anesthesia: No Surgical History Surgical History H/O shoulder surgery Hx of tonsillectomy History of hip surgery History of esophagogastroduodenoscopy (EGD) H/O colonoscopy History of cholecystectomy History of Problems with Anesthesia: Yes Social History Social History Household Members: None Housing: Apartment Housing Other:: [facility] Patient Tobacco Use Status: Never used Tobacco e-Cigarette/Vaping Use: Never Used Second Hand Smoke Exposure: No Use of substances other than those prescribed or required for medical reasons: No Are you DNR?: No Advance Directives: No Advance Directives Information Provided: Yes service: No Current occupational status: retired Cognitive needs: No Hearing needs: No Vision needs: No Meds Allergies Allergy/AdvReac Type Severity Reaction Status Date / Time adhesive Allergy Severe Hives Verified 04/17/24 12:34 ondansetron Allergy Unknown ANAPHYLAXIS Verified 04/17/24 12:34 [From ZOFRAN ( HYDROCHLORIDE)] Active Medications: Current Medications Lactated Ringer's (Lr) 1,000 mls @ 100 mls/hr IVCONT .Q10H DOMINICK Home Medications ?Medication ?Instructions ?Recorded ?Confirmed ?Last Taken ?Type aspirin 81 mg tablet 81 mg PO DAILY 02/14/23 04/20/24 Unknown History cranberry concentrate-ascorbic 20 cap PO DAILY 05/29/23 04/20/24 Unknown History acid 4,200 mg-20 mg capsule vibegron 75 mg tablet (Gemtesa) 75 mg PO DAILY 03/05/24 04/20/24 Unknown History Exam Height,Weight and Vital Signs: Height 5 ft 6 in Weight 93.44 kg Last Vital Signs Temp 99.1 F 04/20/24 11:44 Pulse 78 04/20/24 11:44 Resp 16 04/20/24 11:44 BP 135/66 04/20/24 11:44 Pulse Ox 96 04/20/24 11:44 O2 Del Method Room Air 04/20/24 11:44 Airway Mallampati Class: II TM Dist: >3cm Neck ROM: Full Heart: rrr Lungs: cta Assessment and Plan Assessment Anesthesia Assessment: Anesthesia Plan Discussed and Chart Reviewed Final Anesthetic Review Family History of Problems with Anesthesia: No History of Problems with Anesthesia: Yes NPO: Yes ASA Class: III Final Preanesthetic Review: No Changes in Pt Med Stat, Meds/Allgs Chart Reviewed and Consent Obtained/Reviewed Patient Risk: Intermediate Procedure Risk: Intermediate Anesthetic Plan Anesthetic Plan: MAC: Disposition: Standard PACU
--- NOTE | 2024-04-20 13:24 | HO.OPN-COLON ---
Colonoscopy Operative Note Operative Note Date of Service: 04/20/24 Narrative: FLEXIBLE TRANSORAL UPPER GASTROINTESTINAL ENDOSCOPY WITH BIOPSIES AND WISE (3D) AND COLONOSCOPY TILL CECUM WITH BIOPSIES AND SNARE POLYPECTOMY Pre-op diagnosis: Colon cancer screening, GERD, F/U of Lakhani's esophagus Post-op diagnosis: GERD, Lakhani's, hiatal hernia, Gastritis, multiple Gastric polyps, Colon Polyps, Diverticulosis, hemorrhoids Endoscopist:? Verito Grigsby MD Anesthesia:?MAC UPPER ENDOSCOPY Consent: Indications for the procedure and potential complications of bleeding, perforation, reaction to medications and missed diagnosis were discussed with the patient and informed consent was obtained. Instrument: Olympus GIF H 190 mid size upper endoscope Monitoring: Vital signs and clinical assessment, continuous EKG monitoring, Pulse oximetry, Carbon Dioxide monitoring and blood pressure monitoring were done throughout the procedure. Procedure: The patient was placed in the left lateral decubitis position and pre-procedure medications were administered and a bite block was placed. The endoscope was inserted into the mouth and advanced under direct vision to the third part of duodenum. A careful inspection was made as the upper endoscope was withdrawn including a retroflexed examination of the proximal stomach; Findings and interventions are described below. Findings: Larynx: Normal Esophagus: GE junction at 32 cms, hiatal hernia 32 to 35 cms. A 1 cms tongue of possible Lakhani's - Biopsies and brushing obtained for histology and Wise (3D) No esophagitis Stomach: Multiple 5 -10 mm benign appearing polyps in the gastric body - biopsied. A 2 cms polyp at 40 cms along the greater curvature - multiple biopsies were obtained and site was marked with Deandra ink Moderate diffuse gastric erythema - biopsies were obtained from the body and antrum. Grade 3 flap valve on retroflexed examination of the cardia. Duodenum: Normal bulb and descending duodenum Biopsies were obtained from descending duodenum to check for celiac sprue Intervention: Biopsies as noted above COLONOSCOPY PROCEDURE NOTE Instrument: Olympus PCF H 190 L variable stiffness pediatric colonoscope Monitoring: Vital signs and clinical assessment, intermittent blood pressure monitoring, continuous EKG monitoring, Pulse oximetry and Carbon Dioxide monitoring were done throughout the procedure. Please see anesthesia flowsheet. Colon withdrawl time was 20 minutes. Procedure: The patient was placed in the left lateral decubitis position and pre-procedure medications were administered. After a digital rectal examination of the ano-rectum, the video colonoscope was inserted into the rectum and advanced through the colon to the cecum. The colonoscope was slowly withdrawn in a retrograde panoramic fashion and the colon mucosa was carefully examined including a retroflexed view of the rectum. Findings and interventions are described below. Procedure Difficulty: LLQ pressure was applied to intubate the cecum Findings: Terminal Ileum: Not evaluated Cecum: A 4-5 mm sessile polyp - removed with a cold snare. Posterior lip of ICV appeared prominent - biopsies were obtained. Ascending Colon: A 4-5 mm sessile polyp in the proximal AC - removed with a cold snare. Polyp was not retrieved. Mild melanosis coli in the right colon - random biopsies were obtained Transverse Colon: Normal Descending Colon: Normal Sigmoid Colon: A 7-8 mm sessile polyp - removed with a cold snare. Moderate diverticulosis Rectum: Normal Ano-rectum: Normal Colon preparation: Good after some irrigation. There was excessive spasm in the colon Paisley Bowel Preparation Scale Right colon; 2 Transverse colon: 2 Left colon; 2 (0 = Unprepared colon segment with mucosa not seen due to solid stool that cannot be cleared. 1 = Portion of mucosa of the colon segment seen, but other areas of the colon segment not well seen due to staining, residual stool and/or opaque liquid. 2 = Minor amount of residual staining, small fragments of stool and/or opaque liquid, but mucosa of colon segment seen well. 3 = Entire mucosa of colon segment seen well with no residual staining, small fragments of stool or opaque liquid) Impression and Post Procedure Diagnosis: Endoscopy Findings: ESOPHAGUS: Hiatal hernia 32 to 35 cms. A 1 cms tongue of possible Lakhani's - Biopsies and brushing obtained for histology and Wise (3D) STOMACH: Multiple 5 -10 mm benign appearing polyps in the gastric body - biopsied. A 2 cms polyp at 40 cms along the greater curvature - multiple biopsies were obtained and site was marked with Deandra ink Moderate diffuse gastric erythema - biopsies were obtained from the body and antrum. DUODENUM: Normal - biopsied to check for celiac sprue Colonoscopy Findings: Three small polyps were removed Moderate diverticulosis seen in the sigmoid colon Plan: Pt has a FU appointment on 05/05/24 with Maxine Diaz NP Repeat Colonoscopy in 3-5 years if polyps are adenomatous and 10 year if polyps are hyperplastic. Above findings were reviewed with the patient and relevant handouts were given and the discharge area. BIOPSIES SHOWED: A. Small bowel, biopsy: Duodenal mucosa within normal limits; negative for celiac disease. B. Stomach, antrum, biopsy: Antral-type mucosa with mild chronic inactive inflammation; no Helicobacter organisms seen. C. Stomach, polyp, biopsy: Fundic gland polyp. D. Stomach, body, biopsy: Small fragments of antral-type and oxyntic mucosa with mild chronic inactive inflammation; no Helicobacter organisms seen. E. Stomach, greater curvature polyp at 40 cm: Fundic gland polyp with low grade dysplasia and mild chronic inactive inflammation; negative for high grade dysplasia or carcinoma. F. GE junction, biopsy: - Cardiac-type mucosa with mild chronic inactive inflammation; no intestinal metaplasia seen. - Squamous mucosa within normal limits. G. Ileocecal valve, biopsy: Ileocolonic mucosa within normal limits. H. Cecum, polypectomy: Fragments of tubular adenoma; negative for high-grade dysplasia or carcinoma. I. Colon, right, biopsy: Mild melanosis coli; otherwise colonic mucosa within normal limits. J. Colon, sigmoid, polypectomy: Tubular adenoma; negative for high-grade dysplasia or carcinoma Letter sent advising repeat colon in 3 years. Repeat EGD in 3 months to FU of low grade dysplasia in fundic gland polyp in the gastric body
[2024-04-20 14:02] VITALS: BP 123/50; PULSE 70; RESP 16; TEMP 36.1; O2SAT 94
[2024-04-20 14:20] VITALS: BP 133/70; PULSE 64; RESP 18; TEMP 36.1; O2SAT 97
== END 2024-04-20 14:41 | disposition home or self-care (01) ==
PROVIDERS: PCP Nurse Practitioner Family; Visit Provider Internal Medicine Gastroenterology
PROC: (CPT 45385; principal; 2024-04-20 11:50)
DX: Z12.11 Encounter for screening for malignant neoplasm of colon (principal); Z86.010 Personal history of colon polyps; D12.0 Benign neoplasm of cecum; D12.5 Benign neoplasm of sigmoid colon; K63.89 Other specified diseases of intestine; K59.04 Chronic idiopathic constipation; K22.70 Barrett's esophagus without dysplasia; K29.50 Unspecified chronic gastritis without bleeding; K31.7 Polyp of stomach and duodenum; K21.9 Gastro-esophageal reflux disease without esophagitis; K44.9 Diaphragmatic hernia without obstruction or gangrene; K30 Functional dyspepsia; N18.9 Chronic kidney disease, unspecified; R91.1 Solitary pulmonary nodule; R00.0 Tachycardia, unspecified; Z85.3 Personal history of malignant neoplasm of breast; R42 Dizziness and giddiness; G47.33 Obstructive sleep apnea (adult) (pediatric); Z79.899 Other long term (current) drug therapy; Z88.8 Allergy status to other drugs, medicaments and biological substances; L23.1 Allergic contact dermatitis due to adhesives
CPT/HCPCS: 45385; 45380; 43239; 88305; 88313; 88342; J2250; J2704

== ENCOUNTER → 2024-04-20 10:31 | Outpatient (BNV) | payer MEDICARE, SELFPAY | PROVIDERS: PCP Nurse Practitioner Family; Visit Provider Internal Medicine Gastroenterology | DX: Z12.11 Encounter for screening for malignant neoplasm of colon (principal); D12.0 Benign neoplasm of cecum; D12.5 Benign neoplasm of sigmoid colon; K63.89 Other specified diseases of intestine; K57.30 Diverticulosis of large intestine without perforation or abscess without bleeding; K21.9 Gastro-esophageal reflux disease without esophagitis; K22.70 Barrett's esophagus without dysplasia; K29.70 Gastritis, unspecified, without bleeding; K31.7 Polyp of stomach and duodenum | CPT/HCPCS: 43236; 43239; 45380; 45385 ==

== ENCOUNTER 2024-04-28 14:18 | Outpatient (AMB) | payer MEDICARE, SELFPAY ==
--- NOTE | 2024-04-28 15:16 | A.OFFPC_ITS ---
Vital Signs 04/28/24 15:18 Height 5 ft 6 in Weight 211 lb BMI 34.1 BP 114/70 Blood Pressure Location Lt brachial Position Sitting Pulse 60 Pulse Source Pulse Oximeter Pulse Oximetry (%) 98 Oxygen Delivery Method Room Air Intake Visit Reasons: F/U from [place] Intake Note: Patient here to f/u from [facility] Allergies adhesive Allergy (Severe, Verified 04/28/24 15:19) Hives ondansetron [From ZOFRAN ( HYDROCHLORIDE)] Allergy (Unknown, Verified 04/28/24 15:19) ANAPHYLAXIS Tobacco use date assessed: 10/18/23 Fall risk assessment: No Falls in past year Last assessed Fall Risk: 04/28/24 Dental Screening Dental Screen Date: 12/18/23 HPI F/U from [facility] HPI Details Pt was seen in the walk-in on 02/24 c/o episodes of dizziness and palpitations. She had an EKG in office. Labs were ordered. Pt was positive Naz Hallpike. Pt was sent meclizine. She reports some ongoing episodes of dizziness with shortness of breath. She reports that these occur with activity. Pt had a recent holter monitor which showed: total monitoring time 7 days. Underlying rhythm is sinus with an average rate of 80/Min. Range 51 to 140/Min. Rare supraventricular ectopy. Very brief runs. Rare ventricular ectopy. No significant pauses or AV blocks. No patient markers or diary events. Will order 2 day holter, encouraged pt to walk the hallway with this holter on to evaluate symptoms, and is symptom correlate with the holter. Pt has an appointment with cardiology in July. Pt had a recent chest CT which showed Subpleural reticular changes in the lower lobes and right middle lobe. Mild diffuse bronchiectasis. This may represent early interstitial lung disease. She will be following up with pulmonology in the near future. Denies any current chest pain and shortness of breath. Pt c/o bilat knee pain. She reports that this is limiting her physical activity. Will order XRs and most likely will get her in with ortho (clear degeneration on exam). [facility] Medical History (Updated 04/28/24 @ 15:45 by Tushar Arroyo, [facility]) Bilateral knee pain Postmenopausal Breast cancer Fracture of femoral neck, left Pulmonary nodule Preoperative clearance Early satiety Nausea Right shoulder pain Nausea and vomiting Pre-op examination History of breast cancer Skin lesions Screening for lipid disorders Irritable bowel syndrome with constipation Screening for colon cancer Physical exam History of sepsis CKD (chronic kidney disease) CLYDE (obstructive sleep apnea) Clostridium difficile infection Lupus Glaucoma History of kidney disease Sleep apnea Hypothyroidism Closed fracture of neck of left femur Fibromyalgia Surgical History H/O shoulder surgery Hx of tonsillectomy History of hip surgery History of esophagogastroduodenoscopy (EGD) H/O colonoscopy History of cholecystectomy Family History Father Heart attack Clogged artery (heart) COPD (chronic obstructive pulmonary disease) Mother Stroke Clogged artery (heart) Sister COPD (chronic obstructive pulmonary disease) Brother COPD (chronic obstructive pulmonary disease) Social History Household Members: None Housing: Apartment Housing Other:: custodial Patient Tobacco Use Status: Never used Tobacco e-Cigarette/Vaping Use: Never Used Second Hand Smoke Exposure: No service: No Current occupational status: retired Cognitive needs: No Hearing needs: No Vision needs: No Questionnaire PHQ-9 Over the last 2 weeks, how often have you been bothered by any of the following problems? 1. Little interest or pleasure in doing things: not at all 2. Feeling down, depressed, or hopeless: not at all 3. Trouble falling or staying asleep, or sleeping too much: more than half the days 4. Feeling tired or having little energy: more than half the days 5. Poor appetite or overeating: not at all 6. Feeling bad about yourself - or that you are a failure or have let yourself or your family down: not at all 7. Trouble concentrating on things, such as reading the newspaper or watching television: not at all 8. Moving or speaking so slowly that other people could have noticed. Or the opposite - being so fidgety or restless that you have been moving around a lot more than usual: not at all 9. Thoughts that you would be better off or of hurting yourself in some way: not at all Total score: 4 Depression Screening Interpretation: Negative Depression Screening Done: Yes 72341 - PHQ-9 Billing: Yes Source: Developed by Drs. David Perez, Virgil Kwan and colleagues, with an educational gifty from [employer]. Thrive Questionnaire Date Thrive assessed: 04/22/24 I am a: Patient What is your living situation today?: I have a steady place to live Within the past 12 months, did the food you bought not last and you didn't have the money to get more?: Never true Within the past 12 months, did you worry whether your food would run out before you got money to buy more?: Never true Do you have trouble paying for medicines?: No Do you have trouble getting transportation to medical appointments?: Yes Do you have trouble paying your heating and electricity bill?: No Do you have trouble taking care of your child, family member or friend?: No Do you have trouble with day-to-day activities such as bathing, preparing meals, shopping, managing finances, etc.?: I choose not to answer this question Are you currently unemployed and looking for a job?: No Are you interested in more education?: No Please select the resources that you would like help with: Housing/Assisted Currently or been in a relationship where the following occur: No concerns reported THRIVE Score: 1 AUDIT C Alcohol Use Questionnaire (AUDIT-C) 1. How often do you have a drink containing alcohol?: Never Total Score: 0 SEEMA-7 AMB Questionnaire SEEMA-7 Date SEEMA - 7 assessed: 04/28/24 Feeling nervous, anxious, or on edge: 0 = Not at all Not being able to stop or control worryin = Not at all Worrying too much about different things: 0 = Not at all Trouble relaxin = More than half the days Being so restless that it is hard to sit still: 0 = Not at all Becoming easily annoyed or irritable: 0 = Not at all Feeling afraid as if something awful might happen: 0 = Not at all Total SEEMA-7 score (0-4 normal; 5-9 mild; 10-14 moderate; 15-21 severe): 2 Source: Developed by Drs. David Perez, Virgil Kwan and colleagues, with an educational gifty from [employer]. SEEMA-7 Assessment Billing SEEMA-7 Assessment Tool: SEEMA-7 Assessment 82085 Review of Systems Const Reports as per HPI Physical exam (Primary Care) Vital Signs: Last Vital Signs Pulse 60 04/28/24 15:18 BP 114/70 04/28/24 15:18 Pulse Ox 98 04/28/24 15:18 Oxygen Delivery Method Room Air 04/28/24 15:18 BMI result Body Mass Index 34.1 Tobacco/Smoking Status: Tobacco use Status Tobacco use date assessed 10/18/23 04/28/24 15:17 Patient Tobacco Use Status Never used Tobacco 04/28/24 15:17 e-Cigarette/Vaping Use Never Used 04/28/24 15:17 PHQ-9: PHQ-9 Score PHQ-9: Total score 4 04/28/24 15:27 Depression Screening Interpretation: Negative Thrive Assessment: Date of Thrive Assessment Date Thrive assessed 04/22/24 04/28/24 15:17 Currently or been in a relationship where the following occur: No concerns reported Const General: cooperative Nutritional Appearance: obese Orientation/consciousness: patient oriented x3 Resp Effort & Inspection: normal respiratory effort Auscultation: clear to auscultation bilaterally and diminished lung sounds Cardio Rate: regular rate Rhythm: regular rhythm Heart sounds: S1 normal heart sound present and S2 normal heart sound present Neuro Other: dizziness with chin raises General: patient oriented x3 Extrem Other: swelling to bilat knees with pain with extension and flexion, crepitus noted. Psych Appearance: grossly normal Mental Status: mental status grossly normal Speech and movement: Normal speech and movement present Affect: normal affect Attitude: cooperative Thought process: Normal thought process present Thought content: Normal thought content present Insight: Good insight present (Psych) Judgement: Good judgement present (Psych) Assessment and Plan Assessment & Plan (1) Bilateral knee pain: Code(s): M25.561 - Pain in right knee; M25.562 - Pain in left knee Plan: XRs ordered (2) SOB (shortness of breath): Code(s): R06.02 - Shortness of breath Plan: Repeat holter ordered, follows up with pulmonary, stress test also ordered (3) Dizziness: Code(s): R42 - Dizziness and giddiness Plan: Repeat holter ordered, referring to vestibular rehab Plan The patient agreed to the use of a medical field representative for this encounter. Scribed for DA Rebolledo- by Sondra Will, medical field representative, on 04/28/2024 at 15:25 EST. Orders: Orders XR knee LT 2V Today M25.561 - Pain in right knee, M25.562 - Pain in left knee ECG holter monitor 48 hour Today R06.02 - Shortness of breath CA stress test Today R06.02 - Shortness of breath XR knee RT 2V Today M25.561 - Pain in right knee, M25.562 - Pain in left knee NM cardiolite stress test Today R06.02 - Shortness of breath PT Evaluation and Treatment Today R42 - Dizziness and giddiness Coding Level of Care Code Est Pt Level 4 (74767) Diagnoses Bilateral knee pain M25.561; M25.562 SOB (shortness of breath) R06.02 Dizziness R42 Additional Codes SEEMA-7 Assessment Billing - SEEMA-7 Assessment Tool: SEEMA-7 Assessment 98387 ([id number])
[2024-04-28 15:18] VITALS: BP 114/70; PULSE 60; O2SAT 98; BMI 34.1
== END 2024-04-28 15:57 | disposition home or self-care (01) ==
PROVIDERS: PCP Nurse Practitioner Family; Visit Provider Nurse Practitioner Family
DX: M25.561 Pain in right knee (principal); M25.562 Pain in left knee; R06.02 Shortness of breath; R42 Dizziness and giddiness
CPT/HCPCS: 99214

== ENCOUNTER 2024-04-28 15:57 | Outpatient (REF) | payer MEDICARE, SELFPAY ==
--- NOTE | ~2024-04-28 | XR_ITS ---
EXAMINATION: Bilateral knee series CLINICAL INFORMATION: Pain in the right and left knee COMPARISON: X-rays of both knees May 2023 and additional x-ray the left knee January 2023 TECHNIQUE: 2 views of each knee FINDINGS: Right knee: Mild osteoarthritis of the lateral compartment small marginal osteophytes without joint space narrowing indicative of mild osteoarthritis. Medial compartment and patellofemoral compartment are unremarkable no effusion. No fracture. Left knee: The bone and joint spaces appear normal. Incidental note made of multiple scattered areas of calcification/ossification in the soft tissues of the anterior and medial aspect of the knee region which has remained unchanged dating back to x-rays in 2022. XR/XR knee RT 2V IMPRESSION: RIGHT KNEE: Mild osteoarthritis unchanged. LEFT KNEE: No acute abnormality. Stable areas of soft tissue calcification/ossification uncertain etiology and significance. As could reflect heterotopic ossification related to prior trauma
--- NOTE | ~2024-04-28 | XR_ITS ---
EXAMINATION: Bilateral knee series CLINICAL INFORMATION: Pain in the right and left knee COMPARISON: X-rays of both knees May 2023 and additional x-ray the left knee January 2023 TECHNIQUE: 2 views of each knee FINDINGS: Right knee: Mild osteoarthritis of the lateral compartment small marginal osteophytes without joint space narrowing indicative of mild osteoarthritis. Medial compartment and patellofemoral compartment are unremarkable no effusion. No fracture. Left knee: The bone and joint spaces appear normal. Incidental note made of multiple scattered areas of calcification/ossification in the soft tissues of the anterior and medial aspect of the knee region which has remained unchanged dating back to x-rays in 2022. XR/XR knee LT 2V IMPRESSION: RIGHT KNEE: Mild osteoarthritis unchanged. LEFT KNEE: No acute abnormality. Stable areas of soft tissue calcification/ossification uncertain etiology and significance. As could reflect heterotopic ossification related to prior trauma
== END 2024-04-28 15:58 | disposition home or self-care (01) ==
LOC: HO.HMGCX 15:57
PROVIDERS: PCP Nurse Practitioner Family; Visit Provider Nurse Practitioner Family
DX: M25.561 Pain in right knee (principal); M25.562 Pain in left knee
CPT/HCPCS: 73560

== ENCOUNTER 2024-05-02 10:55 | Outpatient (REF) | payer MEDICARE, SELFPAY ==
[2024-05-02 10:49] VITALS: PULSE 95; RESP 16; O2SAT 98
--- NOTE | 2024-05-02 11:00 | PFT_ITS ---
Flows: FEV1: 95 % of predicted at 2.08 L FVC: 90 % of predicted at 2.58 L FEV1/FVC: 81 % Bronchodilator response: Present in small to medium airways only Volumes: Total lung capacity: 75 % of predicted at 3.97 L Residual volume: 70 % of predicted at 1.56 L Slow vital capacity: 82 % of predicted at 2.41 L Expiratory reserve volume: 41 % of predicted at 0.39 L Diffusion capacity: Mild decrease, corrects to normal after adjustment for alveolar ventilation. Impression: Mild restrictive ventilatory defect with bronchodilator response in small to medium airways only. Decreased expiratory reserve volume suggests extrathoracic restriction likely secondary to abdominal obesity. Combination of restrictive ventilatory defect with decreased diffusion capacity suggests underlying pulmonary parenchymal disease. Clinical correlation is advised. DWAYNED
== END 2024-05-02 10:56 | disposition home or self-care (01) ==
LOC: HO.RESP 10:55
PROVIDERS: PCP Nurse Practitioner Family; Visit Provider Nurse Practitioner Family
DX: R05.3 Chronic cough (principal); J84.9 Interstitial pulmonary disease, unspecified
CPT/HCPCS: 94010; 94640; 94727; 94729

== ENCOUNTER 2024-05-05 11:57 | Outpatient (AMB) | payer MEDICARE, SELFPAY ==
--- NOTE | 2024-05-05 11:59 | MHC.OFFVIS ---
Vital Signs 05/05/24 12:04 Height 5 ft 6 in Weight 211 lb 10.3 oz BMI 34.2 BP 144/63 H Blood Pressure Location Lt brachial Position Sitting Pulse 83 Intake Visit Reasons: s/p egd/colon Intake Note: Reema presents in the office as a follow up EGD/COLO. CC: No concerns at this time just here for results. 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 - Lakhani's esophagus without dysplasia Category: Medical (6) Multiple adenomatous polyps: Code(s): D36.9 - Benign neoplasm, unspecified site Category: Medical (7) Dyspnea on exertion: Code(s): R06.09 - Other forms of dyspnea Category: Medical Orders: Referrals Cardiology Referral R06.09 - Other forms of dyspnea, R55 - Syncope and collapse Medications: Refilled esomeprazole magnesium (Nexium) 40 mg PO DAILY 30 caps 6RF Discontinued linaclotide (Linzess) Discontinued Reason: Doctor's Order 72 mcg PO QAM 30 caps 6RF K59.04 - Chronic idiopathic constipation metoclopramide HCl (Reglan) Discontinued Reason: Doctor's Order 5 mg PO QIDACHS 120 tabs 3RF K30 - Functional dyspepsia, R11.0 - Nausea, R68.81 - Early satiety We review the holter monitor,and her near syncope and fainting is continuing with any exertion. This is very life limiting for her. She is seeing a rn care transition, may have some interstitial lung disease. May need a rate control prn use for SVT - but I will send her to cardiology for complete assessment and treatment. She still can not tolerate her Linzess 72mcg, so she is taking 1 senna a night, since her stool is still mixed with some incomplete evacuation, I suggest she take 2 qhs. She is not taking reglan Her colonoscopy is upcoming on Saturday. She had one bad experience with a past scope (not at our facility) where her vocal cords were damaged. PCP ordered a CT r/t abnormal liver finding on my chest CT I read the report and find no significant abnormality. Report is not yet read. Keep appt after scope. EGD/COLONOSCOPY 04/20/24 Findings: Larynx: Normal Esophagus: GE junction at 32 cms, hiatal hernia 32 to 35 cms. A 1 cms tongue of possible Lakhani's - Biopsies and brushing obtained for histology and Rehman (3D) No esophagitis Stomach: Multiple 5 -10 mm benign appearing polyps in the gastric body - biopsied. A 2 cms polyp at 40 cms along the greater curvature - multiple biopsies were obtained and site was marked with Deandra ink Moderate diffuse gastric erythema - biopsies were obtained from the body and antrum. Grade 3 flap valve on retroflexed examination of the cardia. Duodenum: Normal bulb and descending duodenum Biopsies were obtained from descending duodenum to check for celiac sprue Intervention: Biopsies as noted above BIOPSY Findings: Terminal Ileum: Not evaluated Cecum: A 4-5 mm sessile polyp - removed with a cold snare. Posterior lip of ICV appeared prominent - biopsies were obtained. Ascending Colon: A 4-5 mm sessile polyp in the proximal AC - removed with a cold snare. Polyp was not retrieved. Mild melanosis coli in the right colon - random biopsies were obtained Transverse Colon: Normal Descending Colon: Normal Sigmoid Colon: A 7-8 mm sessile polyp - removed with a cold snare. Moderate diverticulosis Rectum: Normal Ano-rectum: Normal Colon preparation: Good after some irrigation. There was excessive spasm in the colon Impression and Post Procedure Diagnosis: Endoscopy Findings: ESOPHAGUS: Hiatal hernia 32 to 35 cms. A 1 cms tongue of possible Lakhani's - Biopsies and brushing obtained for histology and Rehman (3D) STOMACH: Multiple 5 -10 mm benign appearing polyps in the gastric body - biopsied. A 2 cms polyp at 40 cms along the greater curvature - multiple biopsies were obtained and site was marked with Deandra ink Moderate diffuse gastric erythema - biopsies were obtained from the body and antrum. DUODENUM: Normal - biopsied to check for celiac sprue Colonoscopy Findings: Three small polyps were removed Moderate diverticulosis seen in the sigmoid colon Plan: Pt has a FU appointment on 05/05/24 with Maxine Diaz NP Repeat Colonoscopy in 3-5 years if polyps are adenomatous and 10 year if polyps are hyperplastic. Above findings were reviewed with the patient and relevant handouts were given and the discharge area. BIOPSIES SHOWED: A. Small bowel, biopsy: Duodenal mucosa within normal limits; negative for celiac disease. B. Stomach, antrum, biopsy: Antral-type mucosa with mild chronic inactive inflammation; no Helicobacter organisms seen. C. Stomach, polyp, biopsy: Fundic gland polyp. D. Stomach, body, biopsy: Small fragments of antral-type and oxyntic mucosa with mild chronic inactive inflammation; no Helicobacter organisms seen. E. Stomach, greater curvature polyp at 40 cm: Fundic gland polyp with low grade dysplasia and mild chronic inactive inflammation; negative for high grade dysplasia or carcinoma. F. GE junction, biopsy: - Cardiac-type mucosa with mild chronic inactive inflammation; no intestinal metaplasia seen. - Squamous mucosa within normal limits. G. Ileocecal valve, biopsy: Ileocolonic mucosa within normal limits. H. Cecum, polypectomy: Fragments of tubular adenoma; negative for high-grade dysplasia or carcinoma. I. Colon, right, biopsy: Mild melanosis coli; otherwise colonic mucosa within normal limits. J. Colon, sigmoid, polypectomy: Tubular adenoma; negative for high-grade dysplasia or carcinoma TODAY'S VISIT She is here today with her daughter who is supportive The procedure should be repeated in 3 years due to the unclear finding of a tubular adenoma know, at the ileocecal valve area. She had a very hard time even with the pill prep due to nausea and vomiting and the next time we do her procedure we should give her nausea medications and have her start the prep much earlier in the day so she can use it more slowly. She may also benefit from a low-fiber diet a few days or week before. The procedure was well tolerated. The results were explained and the patient is agreeable to the follow-up interval as stated. The bowel pattern has returned to normal. Education was provided to tell any 1st degree relatives about their findings to be sure that they are screened by age 45. Educated that they will be put on a recall list when it is time for their repeat scope but should they move out of state or away from the hospital they will need to remember along with their primary to repeat the procedure in a timely fashion to avoid any adverse complications. The gastric polyp that was biopsied showed low-grade dysplasia. The EGD needs to repeated in 3 months because of this finding. She is agreeable to this and we will also increase her Nexium to twice a day and restart the metoclopramide. We had stopped it because we were uncertain if it was contributing to her vertigo but then a occupational health nursing director showed she was having runs of SVT. We are going to restart it and I will tell her that if her vertigo becomes where she can stop it but I think that it will go a long way toward stopping gastric rumination that may be contributing to irritation. Return office visit in 8 weeks. [facility]LY [facility] Medical History Bilateral knee pain Postmenopausal Breast cancer Fracture of femoral neck, left Pulmonary nodule Preoperative clearance Early satiety Nausea Right shoulder pain Nausea and vomiting Pre-op examination History of breast cancer Skin lesions Screening for lipid disorders Irritable bowel syndrome with constipation Screening for colon cancer Physical exam History of sepsis CKD (chronic kidney disease) CLYDE (obstructive sleep apnea) Clostridium difficile infection Lupus Glaucoma History of kidney disease Sleep apnea Hypothyroidism Closed fracture of neck of left femur Fibromyalgia Surgical History H/O shoulder surgery Hx of tonsillectomy History of hip surgery History of esophagogastroduodenoscopy (EGD) H/O colonoscopy History of cholecystectomy Family History Father Heart attack Clogged artery (heart) COPD (chronic obstructive pulmonary disease) Mother Stroke Clogged artery (heart) Sister COPD (chronic obstructive pulmonary disease) Brother COPD (chronic obstructive pulmonary disease) Social History Household Members: None Housing: Apartment Housing Other:: prison Patient Tobacco Use Status: Never used Tobacco e-Cigarette/Vaping Use: Never Used Second Hand Smoke Exposure: No service: No Current occupational status: retired Cognitive needs: No Hearing needs: No Vision needs: No Review of Systems Const Denies fatigue, Denies fever(s), Denies night sweats, Denies poor appetite and Denies weight loss Eyes Details: glasses Reports requires corrective lenses ENT Reports Normal hearing present, Denies dental pain, Denies dysphagia, Reports vertigo, Denies hearing loss, Denies mouth pain, Denies odynophagia, Denies throat swelling, Denies tongue swelling and Reports other (Dentition adequate) Card Reports no additional complaints Resp Reports no additional complaints GI Details: Denies abdominal pain, Denies melena, Denies bloating, Denies hematochezia, Denies constipation, Denies GI cramping, Denies dysphagia, Denies excessive flatus, Reports early satiety, Reports heartburn, Denies diarrhea, Reports nausea, Denies odynophagia, Denies vomiting and Denies hematemesis Skin/Breast Denies pruritus, Denies lesions, Denies rash and Denies jaundice Neuro Reports Normal hearing present, Denies Abnormal speech present and Reports vertigo Endo Denies fatigue Aller/Immun Denies throat swelling and Denies tongue swelling Physical Exam Vital Signs: Last Vital Signs Pulse 83 05/05/24 12:04 BP 144/63 H 05/05/24 12:04 BMI result Body Mass Index 34.2 Const General: cooperative, no acute distress, well developed and well groomed Nutritional Appearance: well nourished and obese Orientation/consciousness: oriented to person, oriented to place and oriented to time Limitations: No language barrier HEENT Head: Yes normocephalic and Yes atraumatic Eyes General: appearance normal, both eyes and all related structures Pupils: Equal, round and reactive pupils present Neck Neck: Yes normal visual inspection and Yes no lymphadenopathy Thyroid: Thyroid normal Resp Effort & Inspection: normal respiratory effort and able to speak in complete sentences Auscultation: clear to auscultation bilaterally Cardio Rate: regular rate Rhythm: regular rhythm Heart sounds: Normal, physiologic split S2 sound present Peripheral pulses: radial pulses present and posterior tibial pulses present GI Inspection: No distended, Yes Abdominal panniculus present and Yes obesity Palpation (GI): Soft to palpation, nontender, no guarding, not rigid and No hepatosplenomegaly present Percussion: Yes normal to percussion Auscultation: normal bowel sounds Rectal Exam - Female: deferred Skin General skin exam: no rashes or lesions noted, turgor normal, skin not dry, no jaundice, No spider nevi and no striae Rashes: no rashes Nails: normal Neuro General: oriented to person, oriented to place and oriented to time Cranial nerves: Yes Equal, round and reactive pupils present and Yes Normal hearing present Speech: No Abnormal speech present Extrem General: Yes normal to inspection, No clubbing, No cyanosis and No edema Psych Appearance: grossly normal and well kempt Mental Status: mental status grossly normal Speech and movement: Normal speech and movement present Affect: normal affect Attitude: cooperative Thought process: Normal thought process present and not confabulating Thought content: Normal thought content present Insight: Fair insight present (Psych) Judgement: Fair judgement present (Psych) Results Reviewed Results Reviewed: EGD/COLONOSCOPY 04/20/24 Findings: Larynx: Normal Esophagus: GE junction at 32 cms, hiatal hernia 32 to 35 cms. A 1 cms tongue of possible Lakhani's - Biopsies and brushing obtained for histology and Rehman (3D) No esophagitis Stomach: Multiple 5 -10 mm benign appearing polyps in the gastric body - biopsied. A 2 cms polyp at 40 cms along the greater curvature - multiple biopsies were obtained and site was marked with Deandra ink Moderate diffuse gastric erythema - biopsies were obtained from the body and antrum. Grade 3 flap valve on retroflexed examination of the cardia. Duodenum: Normal bulb and descending duodenum Biopsies were obtained from descending duodenum to check for celiac sprue Intervention: Biopsies as noted above BIOPSY Findings: Terminal Ileum: Not evaluated Cecum: A 4-5 mm sessile polyp - removed with a cold snare. Posterior lip of ICV appeared prominent - biopsies were obtained. Ascending Colon: A 4-5 mm sessile polyp in the proximal AC - removed with a cold snare. Polyp was not retrieved. Mild melanosis coli in the right colon - random biopsies were obtained Transverse Colon: Normal Descending Colon: Normal Sigmoid Colon: A 7-8 mm sessile polyp - removed with a cold snare. Moderate diverticulosis Rectum: Normal Ano-rectum: Normal Colon preparation: Good after some irrigation. There was excessive spasm in the colon Impression and Post Procedure Diagnosis: Endoscopy Findings: ESOPHAGUS: Hiatal hernia 32 to 35 cms. A 1 cms tongue of possible Lakhani's - Biopsies and brushing obtained for histology and Rehman (3D) STOMACH: Multiple 5 -10 mm benign appearing polyps in the gastric body - biopsied. A 2 cms polyp at 40 cms along the greater curvature - multiple biopsies were obtained and site was marked with Deandra ink Moderate diffuse gastric erythema - biopsies were obtained from the body and antrum. DUODENUM: Normal - biopsied to check for celiac sprue Colonoscopy Findings: Three small polyps were removed Moderate diverticulosis seen in the sigmoid colon Plan: Pt has a FU appointment on 05/05/24 with Maxine Diaz NP Repeat Colonoscopy in 3-5 years if polyps are adenomatous and 10 year if polyps are hyperplastic. Above findings were reviewed with the patient and relevant handouts were given and the discharge area. BIOPSIES SHOWED: A. Small bowel, biopsy: Duodenal mucosa within normal limits; negative for celiac disease. B. Stomach, antrum, biopsy: Antral-type mucosa with mild chronic inactive inflammation; no Helicobacter organisms seen. C. Stomach, polyp, biopsy: Fundic gland polyp. D. Stomach, body, biopsy: Small fragments of antral-type and oxyntic mucosa with mild chronic inactive inflammation; no Helicobacter organisms seen. E. Stomach, greater curvature polyp at 40 cm: Fundic gland polyp with low grade dysplasia and mild chronic inactive inflammation; negative for high grade dysplasia or carcinoma. F. GE junction, biopsy: - Cardiac-type mucosa with mild chronic inactive inflammation; no intestinal metaplasia seen. - Squamous mucosa within normal limits. G. Ileocecal valve, biopsy: Ileocolonic mucosa within normal limits. H. Cecum, polypectomy: Fragments of tubular adenoma; negative for high-grade dysplasia or carcinoma. I. Colon, right, biopsy: Mild melanosis coli; otherwise colonic mucosa within normal limits. J. Colon, sigmoid, polypectomy: Tubular adenoma; negative for high-grade dysplasia or carcinoma Assessment & Plan Assessment & Plan (1) Tubular adenoma of colon: Comment: 03/2024 scope= 2 TA is but 1 suspicious on the ileocecal valve repeat in 3 years Code(s): D12.6 - Benign neoplasm of colon, unspecified Category: Medical (2) Gastric dysplasia: Comment: From biopsy polyp on 03/2024 EGD Code(s): Q40.3 - Congenital malformation of stomach, unspecified Category: Medical Plan She is here today with her daughter who is supportive The procedure should be repeated in 3 years due to the unclear finding of a tubular adenoma know, at the ileocecal valve area. She had a very hard time even with the pill prep due to nausea and vomiting and the next time we do her procedure we should give her nausea medications and have her start the prep much earlier in the day so she can use it more slowly. She may also benefit from a low-fiber diet a few days or week before. The procedure was well tolerated. The results were explained and the patient is agreeable to the follow-up interval as stated. The bowel pattern has returned to normal. Education was provided to tell any 1st degree relatives about their findings to be sure that they are screened by age 45. Educated that they will be put on a recall list when it is time for their repeat scope but should they move out of state or away from the hospital they will need to remember along with their primary to repeat the procedure in a timely fashion to avoid any adverse complications. The gastric polyp that was biopsied showed low-grade dysplasia. The EGD needs to repeated in 3 months because of this finding. She is agreeable to this and we will also increase her Nexium to twice a day and restart the metoclopramide. We had stopped it because we were uncertain if it was contributing to her vertigo but then a occupational health nursing director showed she was having runs of SVT. We are going to restart it and I will tell her that if her vertigo becomes where she can stop it but I think that it will go a long way toward stopping gastric rumination that may be contributing to irritation. Return office visit in 8 weeks. Medications: New metoclopramide HCl (Reglan) 5 mg PO QIDACHS 120 tabs 6RF Changed From esomeprazole magnesium (Nexium) 40 mg PO DAILY 30 caps 6RF Q40.3 - Congenital malformation of stomach, unspecified To esomeprazole magnesium (Nexium) 40 mg PO BID 60 caps 6RF Q40.3 - Congenital malformation of stomach, unspecified From sennosides (Senna Laxative) 17.2 mg (2 x 8.6 mg) PO BEDTIME 60 tabs 3RF K59.04 - Chronic idiopathic constipation To sennosides (Senna Laxative) 25.8 mg (3 x 8.6 mg) PO BEDTIME 90 tabs 6RF K59.04 - Chronic idiopathic constipation Coding Level of Care Code Est Pt Level 4 (29907) Diagnoses Tubular adenoma of colon D12.6 Gastric dysplasia Q40.3
[2024-05-05 12:04] VITALS: BP 144/63; PULSE 83; BMI 34.2
== END 2024-05-05 12:35 | disposition home or self-care (01) ==
PROVIDERS: PCP Nurse Practitioner Family; Visit Provider Nurse Practitioner
DX: D12.6 Benign neoplasm of colon, unspecified (principal); Q40.3 Congenital malformation of stomach, unspecified
CPT/HCPCS: 99214

== ENCOUNTER → 2024-05-05 11:57 | Outpatient (BNVA) | payer MEDICARE, SELFPAY | PROVIDERS: PCP Nurse Practitioner Family; Visit Provider Nurse Practitioner | DX: K30 Functional dyspepsia (principal); K59.04 Chronic idiopathic constipation; K22.70 Barrett's esophagus without dysplasia; R00.0 Tachycardia, unspecified; R06.09 Other forms of dyspnea; D12.6 Benign neoplasm of colon, unspecified; Q40.3 Congenital malformation of stomach, unspecified | CPT/HCPCS: 99212 ==

== ENCOUNTER 2024-05-06 13:52 | Outpatient (AMB) | payer MEDICARE, SELFPAY ==
--- NOTE | 2024-05-06 13:56 | A.OFFVIS_ITS ---
Vital Signs 05/06/24 13:58 Height 5 ft 6 in Weight 210 lb 2 oz BMI 33.9 BP 148/62 H Blood Pressure Location Lt brachial Position Sitting Pulse 62 Pulse Source Pulse Oximeter Pulse Oximetry (%) 97 Oxygen Delivery Method Room Air Intake Visit Reasons: Cough/PFT Follow Up Allergies adhesive Allergy (Severe, Verified 05/06/24 14:11) Hives ondansetron [From ZOFRAN ( HYDROCHLORIDE)] Allergy (Unknown, Verified 05/06/24 14:11) ANAPHYLAXIS HPI HPI Cough/PFT Follow Up: Details: Reema is a pleasant 73 year old female, never smoker, with underlying lupus, h/o right breast cancer s/p radiation 2008, CKD and hypothyroidism. She was referred for PCP after abnormal chest CT. She reports chronic cough since having COVID last year (recovered at home, no hospitalization required). She was treated on 01/13 for worsening of cough and treated with prednisone, benzonatate, and albuterol. She reports significant improvement in cough after prednisone, however continues with occasional cough and dyspnea on exertion. Today she presents to review PFT results. [facility] Medical History (Updated 05/12/24 @ 14:34 by Lo Coe NP) Bilateral knee pain Postmenopausal Breast cancer Fracture of femoral neck, left Pulmonary nodule Preoperative clearance Early satiety Nausea Right shoulder pain Nausea and vomiting Pre-op examination History of breast cancer Skin lesions Screening for lipid disorders Irritable bowel syndrome with constipation Screening for colon cancer Physical exam History of sepsis CKD (chronic kidney disease) CLYDE (obstructive sleep apnea) Clostridium difficile infection Lupus Glaucoma History of kidney disease Sleep apnea Hypothyroidism Closed fracture of neck of left femur Fibromyalgia Surgical History H/O shoulder surgery Hx of tonsillectomy History of hip surgery History of esophagogastroduodenoscopy (EGD) H/O colonoscopy History of cholecystectomy Family History Father Heart attack Clogged artery (heart) COPD (chronic obstructive pulmonary disease) Mother Stroke Clogged artery (heart) Sister COPD (chronic obstructive pulmonary disease) Brother COPD (chronic obstructive pulmonary disease) Social History Household Members: None Housing: Apartment Housing Other:: group home Patient Tobacco Use Status: Never used Tobacco e-Cigarette/Vaping Use: Never Used Second Hand Smoke Exposure: No service: No Current occupational status: retired Cognitive needs: No Hearing needs: No Vision needs: No Review of Systems Const Denies chills, Denies excessive sweating, Denies fever(s), Denies headache(s) and Denies night sweats Eyes Denies dry eyes, Denies irritation and Denies itchy eyes ENT Reports Normal hearing present, Denies headache(s), Denies nasal congestion, Denies nasal discharge, Denies post nasal drip and Denies sore throat Card Denies chest pain, Denies chest pain at rest, Denies chest pain with activity, Denies claudication, Denies leg edema, Denies orthopnea and Denies paroxysmal nocturnal dyspnea Resp Denies chest congestion, Denies excessive phlegm production, Denies pain on inspiration, Denies pain with cough and Denies stridor Musc Denies myalgias Neuro Reports Normal hearing present and Denies headache(s) Endo Denies excessive sweating Anibal/Lymph Denies lymphadenopathy Aller/Immun Denies itchy eyes and Denies seasonal rhinorrhea Physical Exam Vital Signs: Last Vital Signs Pulse 62 05/06/24 13:58 BP 148/62 H 05/06/24 13:58 Pulse Ox 97 05/06/24 13:58 Oxygen Delivery Method Room Air 05/06/24 13:58 BMI result Body Mass Index 33.9 Const General: cooperative, healthy appearing, comfortable, no acute distress, well developed and alert Nutritional Appearance: obese Orientation/consciousness: patient oriented x3 Limitations: no limitations HEENT Head: Yes normal to inspection, Yes normocephalic and Yes atraumatic Ears: hearing grossly normal bilaterally and external ears normal Eyes General: appearance normal, both eyes and all related structures Eyelids: Yes eyelids normal Sclerae: sclerae normal EOM: EOMs intact bilaterally Neck Neck: Yes normal visual inspection and Yes no lymphadenopathy Lymphatic: no lymphadenopathy noted Chest Chest palpation & inspection: normal inspection of the chest Resp Effort & Inspection: normal respiratory effort, able to speak in complete sentences, no audible wheezes, no stridor, not tachypneic, no tripod positioning and no use of accessory muscles Auscultation: wheezes and diminished lung sounds Cardio Jugular venous distension: no JVD Rate: regular rate Rhythm: regular rhythm Skin Other: warm, dry General skin exam: no rashes or lesions noted Neuro General: patient oriented x3 Cranial nerves: Yes Normal hearing present Cognition (Neuro): normal cognition Gait exam (Neuro): Normal gait present Extrem General: Yes normal to inspection, Yes capillary refill normal, Yes no clubbing, cyanosis or edema and Yes no pedal edema Psych Appearance: grossly normal and well kempt Speech and movement: Normal speech and movement present and Clear speech present Affect: normal affect Attitude: cooperative Thought process: Normal thought process present Thought content: Normal thought content present Insight: Good insight present (Psych) Judgement: Good judgement present (Psych) Assessment & Plan Assessment & Plan (1) Chronic cough: Code(s): R05.3 - Chronic cough Category: Medical (2) Bronchiectasis: Code(s): J47.9 - Bronchiectasis, uncomplicated Category: Medical (3) Dyspnea on exertion: Code(s): R06.09 - Other forms of dyspnea Category: Medical (4) Pulmonary nodule: Code(s): R91.1 - Solitary pulmonary nodule Category: Medical Plan Reviewed PFT results which did not reveal an obstructive or restrictive defect. No response to bronchodilator except in small to medium airways. TLC 75% and DLCO 70%, both mildly decreased, suggestive of possible parenchymal diseases. She reports improvements in frequency of cough however continues with dyspnea and intermittent wheezing. Will trial ICS. Prior chest CT revealed subpleural reticular changes in the lower lobes and right middle lobe, suggestive of early ILD. She did report prior radiation for breast cancer in 2009 on the right. Will assess stability of reticular changes with repeat chest CT in 6 months. Will also enter referral to rheumatology for prior diagnosis of Lupus. All questions were answered and patient is in agreement of plan. Will follow up in 6- 8 weeks or sooner if needed. Orders: Referrals Rheumatology Referral M32.9 - Systemic lupus erythematosus, unspecified Medications: New fluticasone furoate 50 mcg/actuation (Arnuity Ellipta) 1 inh inhalation Q24H 30 ea 3RF Coding Level of Care Code Est Pt Level 4 (09366) Diagnoses Chronic cough R05.3 Bronchiectasis J47.9 Dyspnea on exertion R06.09 Pulmonary nodule R91.1
[2024-05-06 13:58] VITALS: BP 148/62; PULSE 62; O2SAT 97; BMI 33.9
== END 2024-05-06 15:25 | disposition home or self-care (01) ==
PROVIDERS: PCP Nurse Practitioner Family; Visit Provider Nurse Practitioner Family
DX: R05.3 Chronic cough (principal); J47.9 Bronchiectasis, uncomplicated; R06.09 Other forms of dyspnea; R91.1 Solitary pulmonary nodule
CPT/HCPCS: 99214

== ENCOUNTER → 2024-05-06 13:52 | Outpatient (BNVA) | payer MEDICARE, SELFPAY | PROVIDERS: PCP Nurse Practitioner Family; Visit Provider Nurse Practitioner Family | DX: R06.09 Other forms of dyspnea (principal); R05.3 Chronic cough; R91.1 Solitary pulmonary nodule; J47.9 Bronchiectasis, uncomplicated | CPT/HCPCS: 99212 ==

== ENCOUNTER → 2024-05-28 09:16 | Outpatient (REF) | payer MEDICARE, SELFPAY ==
--- NOTE | ~2024-05-28 | NM_ITS ---
Lexiscan Myocardial perfusion study Indication: Coronary artery disease Technique: The patient was brought in for a Lexiscan perfusion study on 05/28/2024 and was injected 0.4 mg of Lexiscan intravenously. Within a minute of this injection 30 mCi of sestamibi was given intravenously. Images were obtained using the SPECT gamma camera interlaced with the gating device. Images were obtained in supine position. Resting perfusion study was performed on 06/02/2024. Patient was administered 30 mCi of sestamibi intravenously at rest. Images were then obtained in supine position. Total DLP 135 mGy-cm. Images were processed with the software and compared side to side in short axis, horizontal long axis and vertical long axis views. Findings: Raw aquisition reviewed. Right arm by patient side. The stress perfusion study showed no significant perfusion abnormality. Both uncorrected as well as CT attenuation corrected images were reviewed. The gated study shows normal LV systolic function with calculated LVEF of 51%, but visually appears higher. LV cavity is normal in size. The gated study shows normal wall thickening and contraction of segments. Resting study shows no significant perfusion abnormality. Gating at rest reveals normal wall motion with ejection fraction at 64%. The findings are consistent with no clear reversible or fixed perfusion abnormality. NM/NM cardiolite stress test Impression: 1. Myocardial perfusion imaging study shows likely normal myocardial perfusion. 2. Gated LVEF is 64% during rest. Visually normal during stress. 3. Transient ischemic dilatation not present. EKG component of the test reported separately. Electronically signed by: Tani Maria MD 06/03/2024 11:37 AM EDT
--- NOTE | 2024-05-28 07:00 | HM_ITS ---
Conclusion: 1. Patient was monitored for 1 day and 23 hours 2. Baseline was normal sinus rhythm with average heart of 76 beats per minute 3. No significant pauses noted 4. Occasional PACs noted 5. No patient reported events MTDD
--- NOTE | 2024-05-28 12:14 | CA_ITS ---
Acquisition Time: 2024-05-28 09:29:27 Total Exercise Time: 00:02:00 Test Indications: SOB, DIZZINESS Medications: SEE H Protocol: LEXISCAN Max HR: 106 BPM 73% of Pred: 145 BPM Max BP: 180/074 mmHG Max Work Load: 1.0 METS Pharmacological stress test with Lexiscan injection, while sitting and kicking her legs, with report of shortness of breath and 3/10 chest pressure, without arrythmia, with normotensive response to injection, with nondiagnostic EKG for ischemia. In recovery she was treated with Aminophylline 75mg IVP to reverse Lexiscan with resolution of symptoms. Nuclear images pending. Test reviewed with Dr Anaya., Referred By: Tushar Arroyo Overread By: ANNE EDMONDSON
== END ==
LOC: HO.CARD 09:16
PROVIDERS: PCP Nurse Practitioner Family; Visit Provider Nurse Practitioner Family
DX: R06.02 Shortness of breath (principal)
CPT/HCPCS: 78452; 93017; 93225; A9500; J0280; J2785

== ENCOUNTER → 2024-05-28 12:14 | Outpatient (BNV) | payer MEDICARE, SELFPAY | PROVIDERS: PCP Nurse Practitioner Family; Visit Provider Nurse Practitioner Family | DX: I49.1 Atrial premature depolarization (principal) | CPT/HCPCS: 78452; 93016; 93018; 93227 ==

== ENCOUNTER 2024-06-03 14:00 | Outpatient (RCR) | payer MEDICARE, SELFPAY | END 2024-07-17 07:26 | disposition home or self-care (01) | LOC: HO.PTCHIC 14:00 | PROVIDERS: PCP Nurse Practitioner Family; Visit Provider Physician Assistant | DX: Z48.89 Encounter for other specified surgical aftercare (principal) | CPT/HCPCS: 97110; 97140; 97162 ==

== ENCOUNTER 2024-06-17 11:00 | Outpatient (RCR) | payer MEDICARE, SELFPAY ==
[2024-06-08 13:59] VITALS: BP 118/70; PULSE 80; O2SAT 96
--- NOTE | 2024-06-08 14:57 | MHC.PT.EP ---
[facility] [place] Office [place] Office [place] Office [address] [phone] F: [phone] F: [phone] F: [phone] F: [phone] Physical Therapy Plan of Care Date of Evaluation: 06/08/24 Date of Surgery: Diagnosis: This is a 73 yo female presenting to skilled PT with a script for vertigo. Assessment: This is a 73 yo female presenting to skilled PT with a script for vertigo. Patient with ongoing dizziness now for about 3 months however reports she feels like she has always had it. Symptoms increase with laying down, looking up, rolling over. Examination shows + oculomotor tests with saccades, (-) VBI B but was symptomatic on the R, and WFL cervical AROM. She was (+) for BPPV with luis-hallpike on the R and R jennifer maneuver which was improved s/p tx. Balance was decreased however she reports it is poor at baseline. S/S consistent with R PC BPPV and she would benefit from PT 2x/wk for 4wks to address impairments, implement HEP and optimize functional mobility. 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 Manual therapy to restore motion and function. Therapeutic exercise to improve strength and flexibility. Neuromuscular re-education for posture and balance. Therapeutic activities to return to functional activities of daily living. Electronically signed by: Yaz Singh PT Please sign and return to therapist. Thank you for your referral.
--- NOTE | 2024-07-17 07:28 | MHC.PT.DC ---
[facility] [place] [facility] [place] [facility] [place] [facility] [address] Teetee Pickett [address] [phone] F: [phone] F: [phone] F: [phone] F: [phone] Physical Therapy Discharge Report Diagnosis: This is a 73 yo female presenting to skilled PT with a script for vertigo. Date of Surgery: Date of Evaluation: 06/08/24 Date of Discharge: 07/17/24 Treatments to Date: 2 Cancellations to Date: 0 No Shows to Date: 0 Discharge Status: Improved Function Patient Elected to Stop Discharge Summary: 06/17: Patient without any nystagmus or symptoms with hallpike or roll test. Patient had symptoms supine to sit only. I did assess her orthostatic which were normal but did educate on change in BP with positional changes that are normal. I will reassess again next session. Of note, patient has multiple stressors going on in her life and she cancelled her last appointment. Chart was closed after 30 days of her not being back to the facility. This is a 73 yo female presenting to skilled PT with a script for vertigo. Patient with ongoing dizziness now for about 3 months however reports she feels like she has always had it. Symptoms increase with laying down, looking up, rolling over. Examination shows + oculomotor tests with saccades, (-) VBI B but was symptomatic on the R, and WFL cervical AROM. She was (+) for BPPV with luis-hallpike on the R and R jennifer maneuver which was improved s/p tx. Balance was decreased however she reports it is poor at baseline. S/S consistent with R PC BPPV and she would benefit from PT 2x/wk for 4wks to address impairments, implement HEP and optimize functional mobility. Electronically signed by: Yaz Singh PT Please sign and return to therapist. Thank you for your referral.
== END 2024-07-17 07:29 | disposition home or self-care (01) ==
LOC: HO.PTCHIC 11:00
PROVIDERS: PCP Nurse Practitioner Family; Visit Provider Nurse Practitioner Family
DX: H81.10 Benign paroxysmal vertigo, unspecified ear (principal)
CPT/HCPCS: 95992; 97110; 97162

== ENCOUNTER → 2024-07-01 12:55 | Outpatient (REF) | payer MEDICARE, SELFPAY ==
--- NOTE | 2024-07-01 12:57 | CA_ITS ---
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 Normal LV ejection fraction of 65-70% with impaired relaxation filling pattern 2. Trivial aortic regurgitation 3. Mildly dilated ascending aorta at 3.9 cm 4. Normal RV systolic pressure 5. No gross pericardial effusion Findings Left Ventricle Normal left ventricular size, thickness, and systolic function. The visually estimated ejection fraction is between 65-70%. Spectral Doppler is indicative of an impaired relaxation filling pattern. E/E prime ratio is between 8 and 15 consistent with indeterminate filling pressures. Right Ventricle Normal right ventricular cavity size and systolic function. Atria Both atria are normal in size. There is lipomatous hypertrophy of the interatrial septum. There is no evidence of interatrial shunt. Aortic Valve There is mild calcification of the aortic valve. There is no aortic valve stenosis. There is trace (trivial) aortic valve regurgitation. Mitral Valve There is mild anterior and posterior mitral leaflet thickening. There is trace mitral valve regurgitation. There is no mitral valve stenosis. Pulmonic Valve The pulmonic valve was not well visualized. Tricuspid Valve Likely normal tricuspid valve structure and function. There is trace tricuspid valve regurgitation. The right ventricular systolic pressure is normal. The right ventricular systolic pressure is 18 mmHg. Normal right atrial pressure. There is no evidence of pulmonary hypertension. Great Vessels The pulmonary artery was not well visualized. There is mild dilatation of the ascending aorta measuring 3.80 cm. Small plaque is seen in the sino tubular ridge. Venous The inferior vena cava is normal in size and collapses greater than 50% with inspiration. Pericardium/Pleural There is no evidence of pericardial effusion. Prior Study Comparison Changes noted compared to prior study dated: 06/25/2023. Ascending aorta is mildly dilated Measurements 2D Linear Measurements IVSd: 1.13 0.6-0.9/0.6-1.0 cm LVIDd: 3.84 3.9-5.3/4.2-5.9 cm LVIDd Index: 1.92 2.4-3.2/2.2-3.1 cm/m2 LVIDs: 2.34 2.0-3.6 cm LVPWd: 1.13 0.7-1.1 cm Ao Root: 3.10 2.1-3.5 cm LA Diam: 3.90 2.7-3.8/3.0-4.0 cm LAIDs Index: 1.95 1.5-2.3 cm/m2 LV Mass: 177.17 67-162/88-224 g LV Mass Index: 88.59 43-95/49-115 g/m2 LVOT Diam: 2.10 3.0+(-)1.3 cm Mitral Valve MV Pk E: 0.69 MV PK A: 1.03 MV Decel Time: 212.00 E/A: 0.70 E'Lateral: 5.44 E'Medial: 5.44 E/E' Med: 12.70 E/E' Lat: 12.70 PHT: 62.00 MVA PHT: 3.55 Decel Treutlen: 3.25 Aortic Valve AoV Pk Gabriele: 1.59 AoV Mn Gabriele: 1.02 AoV VTI: 0.40 AoV Pk Grad: 10.00 Aov Mn Grad: 5.00 ZENY Cont.VTI: 2.87 AI Pk Gabriele: 3.49 AI Treutlen: 1.96 LVOT LVOT Pk Gabriele: 1.17 LVOT Mn Gabriele: 0.78 LVOT VTI: 0.33 LVOT Pk Grad: 5.00 LVOT Mn Grad: 3.00 LVOT Diam: 2.10 LVOT Area: 3.46 Diastolic Function MV Pk E: 0.69 MV Pk A: 1.03 E/A: 0.70 E'Medial: 5.44 E/E' Med: 12.70 E' Laterial: 5.44 E/E' Lat: 12.70 Right Ventricle TAPSE (mm): 18.00 TVS' Gabriele: 10.00 Tricuspid Valve TR Pk Gabriele: 1.93 TR Pk Grad: 15.00 RA Press: 3.00 RVSP: 18.00 Great Vessels Aorta Ao Root-2D: 3.10 2.0-3.7 cm Ao Asc: 3.80 2.1-3.4 cm Pulmonary Valve PV Pk Gabriele: 0.90 Peak PV Grad: 3.00 Updated in Other Vendor System with Status of Final Sixto Anaya MD electronically signed on 07/01/2024 2:16:40 PM with status of Final
== END ==
LOC: HO.CARD 12:55
PROVIDERS: PCP Nurse Practitioner Family; Visit Provider Nurse Practitioner Family
DX: I77.810 Thoracic aortic ectasia (principal)
CPT/HCPCS: 93306

== ENCOUNTER → 2024-07-01 12:57 | Outpatient (BNV) | payer MEDICARE, SELFPAY | PROVIDERS: PCP Nurse Practitioner Family; Visit Provider Internal Medicine Cardiovascular Disease | DX: I35.1 Nonrheumatic aortic (valve) insufficiency (principal); I35.8 Other nonrheumatic aortic valve disorders; R93.1 Abnormal findings on diagnostic imaging of heart and coronary circulation | CPT/HCPCS: 93306 ==

== ENCOUNTER 2024-07-06 13:07 | Outpatient (REF) | payer MEDICARE, SELFPAY ==
--- NOTE | ~2024-07-06 | MM_ITS ---
EXAMINATION: MM SCREENING DIGITAL BREAST TOMOSYNTHESIS, BILATERAL CLINICAL INFORMATION: Screening. Asymptomatic. COMPARISON: Mammography: Comparison is made with available priors TECHNIQUE: Digital breast mammography with tomosynthesis is performed in both the craniocaudal and mediolateral oblique views along with computer-aided detection (CAD). FINDINGS: There are scattered areas of fibroglandular density (ACR BI-RADS breast composition Category b). Postsurgical changes right breast are stable. Left marker clip. There are no significant masses, abnormal calcifications, or other abnormalities. MM/MM tomosynthesis screening BI IMPRESSION: No mammographic evidence of malignancy. ASSESSMENT: BI-RADS BI-RADS 2 - Benign Findings RECOMMENDATION: Routine annual mammography screening. 1 year F/U This examination should not preclude the clinical evaluation of a suspicious palpable abnormality. This patient's information was entered into a reminder system with a target due date for their next mammogram. Electronically signed by: Marie Calderon DO 07/17/2024 10:09 AM EDT
== END 2024-07-06 13:08 | disposition home or self-care (01) ==
LOC: HO.MAMMO 13:07
PROVIDERS: PCP Nurse Practitioner Family; Visit Provider Nurse Practitioner Family
DX: Z12.31 Encounter for screening mammogram for malignant neoplasm of breast (principal)
CPT/HCPCS: 77063; 77067

== ENCOUNTER → 2024-07-06 13:30 | Outpatient (BNV) | payer MEDICARE, SELFPAY | PROVIDERS: PCP Nurse Practitioner Family; Visit Provider Internal Medicine | DX: Z12.31 Encounter for screening mammogram for malignant neoplasm of breast (principal) | CPT/HCPCS: 77063; 77067 ==

== ENCOUNTER 2024-07-09 12:47 | Outpatient (REF) | payer MEDICARE, SELFPAY ==
--- NOTE | ~2024-07-09 | CT_ITS ---
EXAMINATION: CT CHEST WITHOUT CONTRAST CLINICAL INFORMATION: Interstitial pulmonary disease, unspecified. COMPARISON: CT chest dated January 24, 2024. TECHNIQUE: Multidetector volumetric CT imaging of the chest was done. Axial MIP volume rendering provided. Sagittal and coronal reformatted images were obtained. This CT examination was performed using dose optimization techniques as appropriate, variously including the following: *Automated exposure control *Adjustment of mA and/or kV according to patient size (this includes techniques or standardized protocols for targeted exams where dose is matched to indication/reason for exam; i.e. extremities or head) *Use of iterative reconstruction technique DLP: 194 mGy-cm FINDINGS: Submitted for interpretation on September 08, 2024. There is a 3 mm noncalcified pulmonary nodule in the peripheral right lung apex. Patchy groundglass in the periphery of the lung bases likely atelectasis. No consolidation, pleural effusion or pneumothorax. No bronchiectasis. No honeycombing. No lymphadenopathy, mediastinum or axillary. Calcified plaques throughout the thoracic aorta wall and its main branches without gross aneurysm. Calcified plaques in the coronary arteries. No pericardial effusion. Small hiatal hernia. Status post cholecystectomy. Liposubstitution of the pancreas. Calcified plaques in the splenic artery. Dystrophic calcifications and nodularity in the right breast with the vascular clips in the right axillary region. No acute fracture or listhesis in the axial skeleton. Osteopenia versus osteoporosis. No lytic or blastic lesions. CT/CT chest wo IV con IMPRESSION: 3 mm noncalcified pulmonary nodule, right lung apex, nonspecific and stable. Probable lumpectomy and axillary dissection, right side. Fleischner guidelines were followed. Electronically signed by: Gera Toscano MD 09/08/2024 02:28 PM CARL
== END 2024-07-09 12:48 | disposition home or self-care (01) ==
LOC: HO.CT 12:47
PROVIDERS: PCP Nurse Practitioner Family; Visit Provider Nurse Practitioner Family
DX: J84.9 Interstitial pulmonary disease, unspecified (principal)
CPT/HCPCS: 71250

== ENCOUNTER → 2024-07-09 12:49 | Outpatient (BNV) | payer MEDICARE, SELFPAY | PROVIDERS: PCP Nurse Practitioner Family; Visit Provider Radiology Diagnostic Radiology | DX: J84.9 Interstitial pulmonary disease, unspecified (principal) | CPT/HCPCS: 71250 ==

== ENCOUNTER 2024-07-20 09:27 | Day surgery (SDC) | payer MEDICARE, SELFPAY ==
--- NOTE | 2024-07-16 15:10 | P.CONAN_ITS ---
Documented by User: Pooja Martin NP 07/16/24 15:17 HPI - Anesthesia Eval Consult details Narrative: 73yo F for Upper Endoscopy 04/2024 work up by PCP for palps/dizzy/WARREN. Echo, stress, holter OK. Seen by pulmo for WARREN. Last office visit 04/2024 Reviewed PFT results which did not reveal an obstructive or restrictive defect. No response to bronchodilator except in small to medium airways. TLC 75% and DLCO 70%, both mildly decreased, suggestive of possible parenchymal diseases. She reports improvements in frequency of cough however continues with dyspnea and intermittent wheezing. Will trial ICS. Prior chest CT revealed subpleural reticular changes in the lower lobes and right middle lobe, suggestive of early ILD. She did report prior radiation for breast cancer in 2008 on the right. Will assess stability of reticular changes with repeat chest CT in 6 months. Will also enter referral to rheumatology for prior diagnosis of Lupus. [facility] Active Problems Active Problems: All Active Problems Lupus (Acute) Gastric dysplasia (Acute) BPPV (benign paroxysmal positional vertigo) (Acute) Vestibular disequilibrium (Acute) SOB (shortness of breath) (Acute) Bilateral knee pain (Acute) Tubular adenoma of colon (Acute) Near syncope (Acute) Tachycardia (Acute) Dizziness (Acute) Multiple pulmonary nodules (Acute) Dyspnea on exertion (Acute) Bronchiectasis (Acute) Delayed gastric emptying (Acute) Spleen anomaly (Acute) Interstitial lung disease (Acute) Chronic cough (Acute) Upper respiratory infection (Acute) Elevated alkaline phosphatase level (Acute) Restless leg syndrome (Acute) Osteoarthritis (Acute) Multiple adenomatous polyps (Acute) Chronic idiopathic constipation (Acute) Sleep apnea (Acute) History of kidney disease (Acute) Fibromyalgia (Acute) Osteoarthritis of right knee (Acute) Right rotator cuff tear (Acute) Ascending aorta dilatation (Acute) Dyslipidemia (Acute) Hypothyroidism (Acute) Murmur (Acute) Raynauds disease (Acute) Memory loss (Acute) Lakhani esophagus (Acute) Osteoarthritis of left knee (Acute) Past Medical History Medical History (Updated 05/12/24 @ 14:34 by Lo Coe NP) Bilateral knee pain Postmenopausal Breast cancer Fracture of femoral neck, left Pulmonary nodule Preoperative clearance Early satiety Nausea Right shoulder pain Nausea and vomiting Pre-op examination History of breast cancer Skin lesions Screening for lipid disorders Irritable bowel syndrome with constipation Screening for colon cancer Physical exam History of sepsis CKD (chronic kidney disease) CLYDE (obstructive sleep apnea) Clostridium difficile infection Lupus Glaucoma History of kidney disease Sleep apnea Hypothyroidism Closed fracture of neck of left femur Fibromyalgia Family History Family History Father Heart attack Clogged artery (heart) COPD (chronic obstructive pulmonary disease) Mother Stroke Clogged artery (heart) Sister COPD (chronic obstructive pulmonary disease) Brother COPD (chronic obstructive pulmonary disease) Family history of problems with anesthesia: No Surgical History Surgical History H/O shoulder surgery Hx of tonsillectomy History of hip surgery History of esophagogastroduodenoscopy (EGD) H/O colonoscopy History of cholecystectomy History of Problems with Anesthesia: Yes Social History Social History Household Members: None Housing: Apartment Housing Other:: fdc Patient Tobacco Use Status: Never used Tobacco e-Cigarette/Vaping Use: Never Used Second Hand Smoke Exposure: No Use of substances other than those prescribed or required for medical reasons: No Are you DNR?: No Advance Directives: No Advance Directives Information Provided: Yes Advance Directives on File: No service: No Current occupational status: retired Cognitive needs: No Hearing needs: No Vision needs: No Meds Allergies Allergy/AdvReac Type Severity Reaction Status Date / Time adhesive Allergy Severe Hives Verified 05/06/24 14:11 ondansetron Allergy Unknown ANAPHYLAXIS Verified 05/06/24 14:11 [From ZOFRAN ( HYDROCHLORIDE)] Home Medications ?Medication ?Instructions ?Recorded ?Confirmed ?Last Taken ?Type aspirin 81 mg tablet 81 mg PO DAILY 02/14/23 04/20/24 Unknown History cranberry concentrate-ascorbic 20 cap PO DAILY 05/29/23 04/20/24 Unknown History acid 4,200 mg-20 mg capsule vibegron 75 mg tablet (Gemtesa) 75 mg PO DAILY 03/05/24 04/20/24 Unknown History docusate sodium 100 mg capsule 100 mg PO DAILY 04/28/24 Unknown History (Colace) turmeric root extract 500 mg 500 mg PO DAILY 04/28/24 Unknown History capsule Exam Pertinent Lab Results Pertinent Lab Results: Laboratory Tests 02/25/24 03/23/24 15:15 13:54 WBC 9.6 Hgb 13.8 Hct 42.9 Plt Count 210 Sodium 143 Potassium 4.1 Chloride 107 Carbon Dioxide 26 BUN 19 H Creatinine 0.97 Narrative Narrative: ECHO 06/2024 Conclusions: - 1. Normal LV ejection fraction of 65-70% with impaired relaxation filling pattern 2. Trivial aortic regurgitation 3. Mildly dilated ascending aorta at 3.9 cm 4. Normal RV systolic pressure 5. No gross pericardial effusion NM cardiolite stress test 2023 Impression: 1. Myocardial perfusion imaging study shows likely normal myocardial perfusion. 2. Gated LVEF is 64% during rest. Visually normal during stress. 3. Transient ischemic dilatation not present. EKG component of the test reported separately. Holter 2023 1. Patient was monitored for 1 day and 23 hours 2. Baseline was normal sinus rhythm with average heart of 76 beats per minute 3. No significant pauses noted 4. Occasional PACs noted 5. No patient reported events Assessment and Plan Assessment Anesthesia Assessment: Chart Reviewed Final Anesthetic Review Family History of Problems with Anesthesia: No History of Problems with Anesthesia: Yes Documented by User: Eliza Booth MD 07/20/24 10:50 [facility] Past Medical History Medical History (Updated 05/12/24 @ 14:34 by Lo Coe NP) Bilateral knee pain Postmenopausal Breast cancer Fracture of femoral neck, left Pulmonary nodule Preoperative clearance Early satiety Nausea Right shoulder pain Nausea and vomiting Pre-op examination History of breast cancer Skin lesions Screening for lipid disorders Irritable bowel syndrome with constipation Screening for colon cancer Physical exam History of sepsis CKD (chronic kidney disease) CLYDE (obstructive sleep apnea) Clostridium difficile infection Lupus Glaucoma History of kidney disease Sleep apnea Hypothyroidism Closed fracture of neck of left femur Fibromyalgia Family History Family History Father Heart attack Clogged artery (heart) COPD (chronic obstructive pulmonary disease) Mother Stroke Clogged artery (heart) Sister COPD (chronic obstructive pulmonary disease) Brother COPD (chronic obstructive pulmonary disease) Surgical History Surgical History H/O shoulder surgery Hx of tonsillectomy History of hip surgery History of esophagogastroduodenoscopy (EGD) H/O colonoscopy History of cholecystectomy Social History Social History Household Members: None Housing: Apartment Housing Other:: fdc Patient Tobacco Use Status: Never used Tobacco e-Cigarette/Vaping Use: Never Used Second Hand Smoke Exposure: No Use of substances other than those prescribed or required for medical reasons: No Are you DNR?: No Advance Directives: No Advance Directives Information Provided: Yes Advance Directives on File: No service: No Current occupational status: retired Cognitive needs: No Hearing needs: No Vision needs: No Meds Allergies Allergy/AdvReac Type Severity Reaction Status Date / Time adhesive Allergy Severe Hives Verified 05/06/24 14:11 ondansetron Allergy Unknown ANAPHYLAXIS Verified 05/06/24 14:11 [From ZOFRAN ( HYDROCHLORIDE)] Home Medications ?Medication ?Instructions ?Recorded ?Confirmed ?Last Taken ?Type aspirin 81 mg tablet 81 mg PO DAILY 02/14/23 04/20/24 Unknown History cranberry concentrate-ascorbic 20 cap PO DAILY 05/29/23 04/20/24 Unknown History acid 4,200 mg-20 mg capsule vibegron 75 mg tablet (Gemtesa) 75 mg PO DAILY 03/05/24 04/20/24 Unknown History docusate sodium 100 mg capsule 100 mg PO DAILY 04/28/24 Unknown History (Colace) turmeric root extract 500 mg 500 mg PO DAILY 04/28/24 Unknown History capsule Exam Airway Mallampati Class: II TM Dist: >3cm Neck ROM: Full Heart: rrr Lungs: cta Assessment and Plan Assessment Anesthesia Assessment: Anesthesia Plan Discussed Final Anesthetic Review NPO: Yes ASA Class: II Final Preanesthetic Review: No Changes in Pt Med Stat, Meds/Allgs Chart Reviewed and Consent Obtained/Reviewed Patient Risk: Low Procedure Risk: Intermediate Anesthetic Plan Anesthetic Plan: MAC: Disposition: Standard PACU
--- OUTSIDE RECORDS SUMMARY | 2024-07-20 09:30 | XMS_ITS | Continuity of Care Document ---
Author Organization [facility] Address [address] [id number]- Care Team Providers Care Hand Funnel Coater Name Role Phone Mahesh Barrios MD Primary Care Physician [phone] Encounter [facility] Date(s): 10/29/22 - 11/28/22 [facility] [address] [id number]- [place] Allergies, Adverse Reactions, Alerts Substance Reaction Severity Status Zofran Active Medications aspirin 81 mg oral capsule 1 capsule = 81 mg, By Mouth, Every 4 hours, 0 Refills, Maintenance, 09/26/22 13:16:00 EST, Partial fill upon patient request if the prescription is for a schedule II opioid drug. Start Date: 09/26/22 Status: Ordered buPROPion 300 mg/24 hours (XL) oral tablet, extended release 1 tablet = 300 mg, By Mouth, Daily, # 90 tablet, 2 Refills, Maintenance, 11/20/22 13:30:00 EST, XL Tablet, [facility] #[id number], Partial fill upon patient request if the prescription is for a schedule II opioid drug. Start Date: 11/20/22 Stop Date: 08/17/23 Status: Ordered Centrum Silver Women's By Mouth, Daily, 0 Refills, Maintenance, 09/26/22 13:16:00 EST, Partial fill upon patient request if the prescription is for a schedule II opioid drug. Start Date: 09/26/22 Status: Ordered Citracal Caplets Plus D By Mouth, 2 times a day, 0 Refills, Maintenance, 09/26/22 13:17:00 EST, Partial fill upon patient request if the prescription is for a schedule II opioid drug. Start Date: 09/26/22 Status: Ordered diclofenac sodium 1% topical cream 0 Refills, Maintenance, 09/26/22 13:15:00 EST, Partial fill upon patient request if the prescription is for a schedule II opioid drug. Start Date: 09/26/22 Status: Ordered Dulcolax Stool Softener = 100 mg, By Mouth, 2 times a day, 0 Refills, Maintenance, 09/26/22 13:17:00 EST, Partial fill uponpatient request if the prescription is for a schedule II opioid drug. Start Date: 09/26/22 Status: Ordered ergocalciferol 74901 iu oral capsule 50,000 International_Units, 1, capsule, By Mouth, Every 30 days, # 6 capsule, Refills 2, Tot. Refills 2, Maintenance, 11/20/22 13:32:00 EST, Route to Pharmacy Electronically, [facility] #[id number], Partial fill upon patient request if the prescr... Start Date: 11/20/22 Status: Ordered Flax Seed Oil oral capsule See Instructions, 1 capsule 2 times a day, # 60 capsule, 0 Refills, Maintenance, 11/20/22 13:28:00 EST, Partial fill upon patient request if the prescription is for a schedule II opioid drug. Start Date: 11/20/22 Status: Ordered levothyroxine 112 mcg (0.112 mg) oral capsule 1 capsule = 112 mcg, By Mouth, Daily, # 90 capsule, 1 Refills, Maintenance, 11/20/22 13:30:00 EST, Capsule, [facility] #[id number], Partial fill upon patient request if the prescription is for aschedule II opioid drug. Start Date: 11/20/22 Stop Date: 05/19/23 Status: Ordered Lubricant Eye Drops Eyes, Both, 4 times a day, 0 Refills, Maintenance, 09/26/22 13:18:00 EST, Partial fill upon patientrequest if the prescription is for a schedule II opioid drug. Start Date: 09/26/22 Status: Ordered magnesium gluconate 250 mg oral tablet 1 tablet = 250 mg, By Mouth, 2 times a day, 0 Refills, Maintenance, 09/26/22 13:16:00 EST, Partial fill upon patient request if the prescription is for a schedule II opioid drug. Start Date: 09/26/22 Status: Ordered Metamucil 400 mg oral capsule 5 capsule = 2,000 mg, By Mouth, 4 times a day, 0 Refills, Maintenance, 09/26/22 13:18:00 EST, Partial fill upon patient request if the prescription is for a schedule II opioid drug. Start Date: 09/26/22 Status: Ordered Myrbetriq 50 mg oral tablet, extended release 1 tablet = 50 mg, By Mouth, Daily, do not crush or chew, # 30 tablet, 0 Refills, Maintenance, 11/20/22 13:27:00 EST, ER Tablet, Partial fill upon patient request if the prescription is for a scheduleII opioid drug. Start Date: 11/20/22 Status: Ordered NexIUM 24HR 20 mg oral delayed release capsule 2 capsule = 40 mg, By Mouth, Daily, 0 Refills, Maintenance, 09/26/22 13:17:00 EST, Partial fill upon patient request if the prescription is for a schedule II opioid drug. Start Date: 09/26/22 Status: Ordered raloxifene 60 mg oral tablet 1 tablet = 60 mg, By Mouth, Daily, # 90 tablet, 1 Refills, Maintenance, 10/29/22 16:28:00 EST, Tablet, [facility] #[id number], Partial fill upon patient request if the prescription is for a schedule II opioid drug. Start Date: 10/29/22 Stop Date: 04/27/23 Status: Ordered traZODone 100 mg oral tablet 100 mg, 1, tablet, By Mouth, Daily at bedtime, # 90 tablet, Refills 1, Tot. Refills 1, Maintenance,10/29/22 16:26:00 EST, Route to Pharmacy Electronically, [facility] #[id number], Partial fill upon patient request if the prescription is for a sc... Start Date: 10/29/22 Stop Date: 04/27/23 Status: Ordered Problem List Condition Confirmation Course Effective Dates Status H ealth Status Informant Barretts esophagus Confirmed Active Chronic kidney disease stage 3A Confirmed 04/09/19 Active Fibromyalgia Confirmed Active History of breast cancer, Right side. in 2008, s/p Lumpectomies, Chemo and radiation Rx Confirmed Active Hyperlipidemia Confirmed 07/04/16 Active Hypothyroidism Confirmed Active Nephrolithiasis Confirmed Active Depression with anxiety Confirmed Active Osteopenia Confirmed Active Adenomatous polyp Confirmed Active SLE (systemic lupus erythematosus) Confirmed Active Urinary incontinence Confirmed Active Social History Social History Type Response Smoking Status Never (less than 100 in lifetime) entered on: 09/26/22 Sex Patient Care team information Care Team Personnel Name: Mahesh Barrios MD Position: [facility] Primary Care Physician Member Role: PCP Address: Address: [address] [place] [id number]- Care Team Related Persons Name: CLARENCE WHATLEY Address: [place] [address]
--- OUTSIDE RECORDS SUMMARY | 2024-07-20 09:30 | XMS_ITS | Continuity of Care Document ---
Author Organization [facility] Address [address] [phone]- Care Team Providers Care Hammer Smith Name Role Phone Mahesh Barrios MD Primary Care Physician Encounter [facility] Date(s): 11/22/22 - 12/22/22 [id number] [address] [place] [address]- [place] Allergies, Adverse Reactions, Alerts Substance Reaction [...] Refills, Maintenance, 11/20/22 13:30:00 EST, XL Tablet, [facility] #[id number], Partial fill upon patient request if the [...] drug. Start Date: 09/26/22 Status: Ordered ergocalciferol 34761 iu oral capsule 50,000 International_Units, 1, capsule, By Mouth, Every 30 days, # 6 capsule, Refills 2, Tot. Refills 2, Maintenance, 11/20/22 13:32:00 EST, Route to Pharmacy Electronically, [facility] #[id number], Partial fill upon patient request if the prescr... Start Date: 11/20/22 Status: Ordered Flax Seed Oil oral capsule See Instructions, 1 capsule 2 times a day, # 60 capsule, 0 Refills, Maintenance, 11/20/22 13:28:00 EST, Partial fill upon patient request if the prescription is for a schedule II opioid drug. Start Date: 11/20/22 Status: Ordered levothyroxine 0.112 mg oral tablet 1 tablet = 112 mcg, By Mouth, Daily, # 90 tablet, 1 Refills, Maintenance, 12/03/22 12:41:00 EST, Tablet, [facility] #[id number], Partial fill upon patient request if the prescription is for a schedule II opioid drug. Start Date: 12/03/22 Status: Ordered Lubricant Eye Drops Eyes, Both, [...] 1 Refills, Maintenance, 10/29/22 16:28:00 EST, Tablet, [facility] #[id number], Partial fill upon patient request if the prescription is for a schedule II opioid drug. Start Date: 10/29/22 Stop Date: 04/27/23 Status: Ordered traZODone 100 mg oral tablet 100 mg, 1, tablet, By Mouth, Daily at bedtime, # 90 tablet, Refills 1, Tot. Refills 1, Maintenance,10/29/22 16:26:00 EST, Route to Pharmacy Electronically, [facility] #[id number], Partial fill upon patient request if the [...] Team Personnel Name: Mahesh Barrios MD Position: [facility] Primary Care Physician Member Role: PCP Address: Address: [address] [place] [id number] Care Team Related Persons Name: CLARENCE WHATLEY Address: [place] [address]
--- OUTSIDE RECORDS SUMMARY | 2024-07-20 09:30 | XMS_ITS | Continuity of Care Document ---
Author Organization [facility] [email or web address] Address [address] [phone]- Care Team Providers Care Brake Lining Driller Name Role Phone Mahesh Barrios MD Primary Care Physician Encounter [facility] Date(s): 11/30/22 - 12/30/22 [email or web address] [address] [place] [address]- [place] Allergies, Adverse Reactions, Alerts Substance Reaction [...] Refills, Maintenance, 11/20/22 13:30:00 EST, XL Tablet, [facility] #[id number], Partial fill upon patient request if the [...] drug. Start Date: 09/26/22 Status: Ordered ergocalciferol 58378 iu oral capsule 50,000 International_Units, 1, capsule, By Mouth, Every 30 days, # 6 capsule, Refills 2, Tot. Refills 2, Maintenance, 11/20/22 13:32:00 EST, Route to Pharmacy Electronically, [facility] #[id number], Partial fill upon patient request if the [...] 1 Refills, Maintenance, 12/03/22 12:41:00 EST, Tablet, [facility] #[id number], Partial fill upon patient request if the [...] 1 Refills, Maintenance, 10/29/22 16:28:00 EST, Tablet, [facility] #[id number], Partial fill upon patient request if the prescription is for a schedule II opioid drug. Start Date: 10/29/22 Stop Date: 04/27/23 Status: Ordered traZODone 100 mg oral tablet 100 mg, 1, tablet, By Mouth, Daily at bedtime, # 90 tablet, Refills 1, Tot. Refills 1, Maintenance,10/29/22 16:26:00 EST, Route to Pharmacy Electronically, [facility] #[id number], Partial fill upon patient request if the [...] Team Personnel Name: Mahesh Barrios MD Position: [facility] Primary Care Physician Member Role: PCP Address: Address: [address] [place] [id number] Care Team Related Persons Name: CLARENCE WHATLEY Address: [place] [address]
--- OUTSIDE RECORDS SUMMARY | 2024-07-20 09:30 | XMS_ITS | Continuity of Care Document ---
Author Organization [facility] Address [address] [phone]- Care Team Providers Care Armhole Baster Jumpbasting Name Role Phone Mahesh Barrios MD Primary Care Physician Encounter [facility] [id number] Date(s): 05/29/23 - 06/28/23 [facility] [address] [phone]- Attending Physician: Ronald Unger Admitting Physician: AdmtrRonald Referring Physician: Admtr, ArPerico Allergies, Adverse Reactions, Alerts Substance Reaction Severity [...] Refills, Maintenance, 11/20/22 13:30:00 EST, XL Tablet, [facility] #[id number], Partial fill upon patient request if the [...] drug. Start Date: 09/26/22 Status: Ordered ergocalciferol 93240 iu oral capsule 50,000 International_Units, 1, capsule, By Mouth, Every 30 days, # 6 capsule, Refills 2, Tot. Refills 2, Maintenance, 11/20/22 13:32:00 EST, Route to Pharmacy Electronically, [facility] #[id number], Partial fill upon patient request if the [...] 1 Refills, Maintenance, 12/03/22 12:41:00 EST, Tablet, [facility] #[id number], Partial fill upon patient request if the [...] 1 Refills, Maintenance, 10/29/22 16:28:00 EST, Tablet, [facility] #[id number], Partial fill upon patient request if the prescription is for a schedule II opioid drug. Start Date: 10/29/22 Stop Date: 04/27/23 Status: Ordered traZODone 100 mg oral tablet 100 mg, 1, tablet, By Mouth, Daily at bedtime, # 90 tablet, Refills 1, Tot. Refills 1, Maintenance,10/29/22 16:26:00 EST, Route to Pharmacy Electronically, [facility] #[id number], Partial fill upon patient request if the [...] 100 in lifetime) entered on: 09/26/22 Sex Laboratory * Event Display: Laboratory Result Scanned Authored Date: * Event Display: Laboratory Result Scanned Authored Date: * Event Display: Laboratory Result Scanned Authored Date: CT Head * Event Display: CT Scan Head Authored Date: * Event Display: CT Scan Head Authored Date: Radiology * Event Display: CT Scan Miscellaneous Authored Date: * Event Display: CT Scan Miscellaneous Authored Date: * Event Display: MRI Shoulder, Non- BH Authored Date: MG Breast Views * Event Display: MM Mammogram Authored Date: * Event Display: MM Mammogram Authored Date: Patient Care team information Care Team Personnel Name: Mahesh Barrios MD Position: [facility] Physician - Primary Care Member Role: PCP Address: Address: [address] [place] [id number]- Care Team Related Persons Name: CLARENCE WHATLEY Address: [place] [address]
--- OUTSIDE RECORDS SUMMARY | 2024-07-20 09:30 | XMS_ITS | Continuity of Care Document ---
Author Organization [facility] Tanisha [facility] [employer] Address [address] [place] [address], [address] [address]- Care Team Providers Care Infant Babysitter Name Role Phone Cruz RENTERIA, Tushar Mackay Primary Care Physician [phone] Encounter [facility] Date(s): 02/11/24 - 02/18/24 [facility] [address] [facility] [place], [place] [address] Attending Physician: Janette Kothari MD Referring Physician: Mahesh Barrios MD Allergies, Adverse Reactions, Alerts Substance Reaction Severity Status Zofran Active Latex Active Medications aspirin 81 mg oral capsule 1 capsule = 81 mg, By Mouth, Every 4 hours, 0 Refills, Maintenance, 09/26/22 13:16:00 EST, Partial fill upon patient request if the prescription is for a schedule II opioid drug. Start Date: 09/26/22 Status: Ordered atorvastatin 10 mg oral tablet 1 tablet = 10 mg, By Mouth, Daily, # 30 tablet, 0 Refills, Maintenance, 02/11/24 15:23:00 EDT, Partial fill upon patient request if the prescription is for a schedule II opioid drug. Start Date: 02/11/24 Status: Ordered buPROPion 300 mg/24 hours (XL) oral tablet, extended release 1 tablet = 300 mg, By Mouth, Daily, # 90 tablet, 2 Refills, Maintenance, 11/20/22 13:30:00 EST, XL Tablet, [facility] #[id number], Partial fill upon patient request if the [...] opioid drug. Start Date: 09/26/22 Status: Ordered clonazePAM 0.5 mg oral tablet 90 each, 0 Refill(s), TAKE 1 TABLET BY MOUTH THREE TIMES DAILY NEEDED FOR ANXIETY, 0 Refills, 02/11/24 15:20:00 EDT, Partial fill upon patient request if the prescription is for a schedule II opioid drug. Start Date: 02/11/24 Status: Ordered Cranberry 0 Refills, Maintenance, 02/11/24 15:23:00 EDT, Partial fill upon patient request if the prescription is for a schedule II opioid drug. Start Date: 02/11/24 Status: Ordered Dulcolax Stool Softener = 100 mg, By Mouth, 2 times a day, 0 Refills, Maintenance, 09/26/22 13:17:00 EST, Partial fill uponpatient request if the prescription is for a schedule II opioid drug. Start Date: 09/26/22 Status: Ordered estradiol 0.1 mg/g vaginal cream = 1 Gm, Vaginally, Daily at bedtime, take every night for two weeks then twice weekly, # 42.5 Gm, 6Refills, Maintenance, 02/11/24 15:47:00 EDT, [facility], Partial fill upon patient request if the prescription is for a schedule II opioi... Start Date: 02/11/24 Status: Ordered Flax Seed Oil oral capsule See Instructions, 1 capsule 2 times a day, # 60 capsule, 0 Refills, Maintenance, 11/20/22 13:28:00 EST, Partial fill upon patient request if the prescription is for a schedule II opioid drug. Start Date: 11/20/22 Status: Ordered gabapentin 300 mg oral capsule 300 mg, 1, capsule, By Mouth, 3 times a day, Refills 0, Maintenance, 02/11/24 15:23:00 EDT, Partialfill upon patient request if the prescription is for a schedule II opioid drug. Start Date: 02/11/24 Status: Ordered Gemtesa 75 mg oral tablet 1 tablet = 75 mg, By Mouth, Daily, # 30 tablet, 11 Refills, Maintenance, 02/11/24 16:02:00 EDT, Tablet, [facility] #[id number], Partial fill upon patient request if the prescription is for a schedule II opioid drug., 91.9, kg, 02/11/24 15:19:00 E... Start Date: 02/11/24 Status: Ordered levothyroxine 0.112 mg oral tablet 1 tablet = 112 mcg, By Mouth, Daily, # 90 tablet, 1 Refills, Maintenance, 12/03/22 12:41:00 EST, Tablet, [facility] #[id number], Partial fill upon patient request if the [...] opioid drug. Start Date: 09/26/22 Status: Ordered NexIUM 24HR 20 mg oral delayed release capsule 2 capsule = 40 mg, By Mouth, Daily, 0 Refills, Maintenance, 09/26/22 13:17:00 EST, Partial fill upon patient request if the prescription is for a schedule II opioid drug. Start Date: 09/26/22 Status: Ordered traZODone 100 mg oral tablet 100 mg, 1, tablet, By Mouth, Daily at bedtime, # 90 tablet, Refills 1, Tot. Refills 1, Maintenance,10/29/22 16:26:00 EST, Route to Pharmacy Electronically, [facility] #[id number], Partial fill upon patient request if the prescription is for a sc... Start Date: 10/29/22 Stop Date: 04/27/23 Status: Ordered turmeric By Mouth, Daily, 0 Refills, Maintenance, 02/11/24 15:23:00 EDT, Partial fill upon patient request if the prescription is for a schedule II opioid drug. Start Date: 02/11/24 Status: Ordered Problem List Condition Confirmation Course Effective Dates Status H ealth Status Informant Atrophic vaginitis Confirmed Active Barretts esophagus Confirmed Active Chronic kidney disease stage 3A Confirmed 04/09/19 Active Rectocele Confirmed Active Fibromyalgia Confirmed Active History of breast cancer, Right side. in 2008, s/p Lumpectomies, Chemo and radiation Rx Confirmed Active Hyperlipidemia Confirmed 07/04/16 Active Hypothyroidism Confirmed Active Mixed incontinence Confirmed Active Nephrolithiasis Confirmed Active Depression with anxiety Confirmed Active Osteopenia Confirmed Active Adenomatous polyp Confirmed Active SLE (systemic lupus erythematosus) Confirmed Active Urinary incontinence Confirmed Active Procedures Procedure Date Related Diagnosis Body Site Status Shoulder 2023 Completed Hip bone 2022 Completed Gallbladder 1979 Completed Vital Signs Most recent to oldest [Reference Range]: 1 Weight 91.9 kg (02/11/24 3:19 PM) Blood Pressure [90-138/55-84 mm Hg] 132/ 64mm Hg (02/11/24 3:19 PM) Blood pressure sites Arm, left (02/11/24 3:19 PM) Dry Weight 91.9 kg (02/11/24 3:19 PM) Weight Obtained Via Standing scale (02/11/24 3:19 PM) Dry Weight Obtained Via Standing scale (02/11/24 3:19 PM) Social History Social History Type Response Smoking Status Never (less than 100 in lifetime) entered on: 09/26/22 Sex Patient Care team information Care Team Personnel Name: Tushar Arroyo NP Position: Reference Physician Member Role: PCP Address: Address: [address] [place] [address]- Care Team Related Persons Name: CLARENCE WHATLEY Address: [place] [address]
--- OUTSIDE RECORDS SUMMARY | 2024-07-20 09:30 | XMS_ITS | Continuity of Care Document ---
Author Organization [facility] Address [address] [place] [address]- Care Team Providers Care Typing Checker Name Role Phone Mahesh Barrios MD Primary Care Physician Encounter [facility] Date(s): 11/26/22 - 12/03/22 [facility] [address] [place] [address]- Attending Physician: Mahesh Barrios MD Allergies, Adverse Reactions, [...] Refills, Maintenance, 11/20/22 13:30:00 EST, XL Tablet, [facility] #[id number], Partial fill upon patient request if the [...] drug. Start Date: 09/26/22 Status: Ordered ergocalciferol 40103 iu oral capsule 50,000 International_Units, 1, capsule, By Mouth, Every 30 days, # 6 capsule, Refills 2, Tot. Refills 2, Maintenance, 11/20/22 13:32:00 EST, Route to Pharmacy Electronically, [facility] #[id number], Partial fill upon patient request if the [...] 1 Refills, Maintenance, 12/03/22 12:41:00 EST, Tablet, [facility] #[id number], Partial fill upon patient request if the [...] 1 Refills, Maintenance, 10/29/22 16:28:00 EST, Tablet, [facility] #[id number], Partial fill upon patient request if the prescription is for a schedule II opioid drug. Start Date: 10/29/22 Stop Date: 04/27/23 Status: Ordered traZODone 100 mg oral tablet 100 mg, 1, tablet, By Mouth, Daily at bedtime, # 90 tablet, Refills 1, Tot. Refills 1, Maintenance,10/29/22 16:26:00 EST, Route to Pharmacy Electronically, [facility] #[id number], Partial fill upon patient request if the [...] 100 in lifetime) entered on: 09/26/22 Sex Note * Iram Zambrano: PERFORM, SIGN, VERIFY Event Display: Patient Education/Instruction Authored Date: [id number] [facility] *BMP Quab Adlt Med Bltn Clinical Summary Name SHAHZAD IBARRA Age 72 Years 1950 PCP Mahesh Barrios MD PCP Visit Date 11/26/2022 09:38:00 Additional Instructions: Scheduled Appointments?? Future Appointments ?*BMP??Quab??Adlt??Med??Bltn ?Phone:??--?Fax:??-- ?Appt. Date:??12/06/2022?1:30 PM ?Scheduled Provider:??[facility] [address]??[place],??[place],??[address] ?Phone:??[phone]?Fax:??-- ?Appt. Date:??12/27/2022?10:30 AM ?Scheduled Provider:??[facility] ?[facility] [address]??[place],??[address] ?Phone:??[phone]?Fax:??-- ?Appt. Date:??12/27/2022?11:00 AM ?Scheduled Provider:??[facility] VALLE ?[facility] ?Phone:??--?Fax:??-- ?Appt. Date:??02/19/2023?2:00 PM ?Scheduled Provider:??Lenard SANCHEZ , Silvestre Follow-Up Instructions ?? Diagnosis Unspecified osteoarthritis, unspecified site Medications: Please continue your medications until treatment is completed or stopped by your provider. Discuss any questions related to medications with your provider. Medications to Continue with No Changes These medications were not printed or sent to your pharmacy Aspirin (aspirin 81 mg oral capsule) 1 capsule Oral every 4 hours. Next Dose: BuPROpion (buPROPion 300 mg/24 hours (XL) oral tablet, extended release) 1 tab(s) Oral Daily for 90Days. Refills: 2. Next Dose: Calcium And Vitamin D Combination (Citracal Caplets Plus D) Oral twice a day. Next Dose: Diclofenac Topical (diclofenac sodium 1% topical cream) Next Dose: Docusate (Dulcolax Stool Softener) 100 Milligram Oral twice a day. Next Dose: Ergocalciferol (ergocalciferol 70027 iu oral capsule) 1 capsule Oral every 30 days. Refills: 2. Next Dose: Esomeprazole (NexIUM 24HR 20 mg oral delayed release capsule) 2 capsule Oral Daily. Next Dose: Flax (Flax Seed Oil oral capsule) 1 capsule 2 times a day. Next Dose: Levothyroxine (levothyroxine 112 mcg (0.112 mg) oral capsule) 1 capsule Oral Daily for 90 Days. Refills: 1. Next Dose: Magnesium Gluconate (magnesium gluconate 250 mg oral tablet) 1 tab(s) Oral twice a day. Next Dose: mirabegron (Myrbetriq 50 mg oral tablet, extended release) 1 tab(s) Oral Daily. do not crush or chew. Next Dose: Multivitamin With Minerals (Centrum Silver Women's) Oral Daily. Next Dose: Ocular Lubricant (Lubricant Eye Drops) Both eyes 4 times a day. Next Dose: Psyllium (Metamucil 400 mg oral capsule) 5 capsule Oral 4 times a day. Next Dose: Raloxifene (raloxifene 60 mg oral tablet) 1 tab(s) Oral Daily for 90 Days. Refills: 1. Next Dose: Trazodone (traZODone 100 mg oral tablet) 1 tab(s) Oral Daily at Bedtime for 90 Days. Refills: 1. Next Dose: Allergy Info:?? Zofran Medications Given This Visit Future Orders ?No future orders Vital Signs Height Weight BMI Blood Pressure / Temperature Pulse Rate Respiratory Rate 02 Sat Mode of Delivery / You can now view a summary of your hospital visit from the comfort of your home through a free online portal called [employer]. [employer] is a website that allows you to securely view your medical information including discharge summary, medications and follow-up visits. ??You can alsosend a secure electronic message to your doctor???s office to request appointments, renew medications or just ask a question. You can enroll at [email or web address] or register during your next office visit. Disclaimer:?? The information provided is of a general nature and is intended to be used in conjunction with the recommendations and advice of your health care practitioner. ??Every effort has been made to ensure that the information provided is accurate and complete at the time it is provided to you however, as your needs change, or, as new ??information becomes available, different or additional instructions may be required. If you have questions, please consult with your primary care provider or pharmacist, as appropriate. ??This information is not intended to serve as substitution for assessment and evaluation by a qualified health care provider. If you do not have a primary care provider, you may find a [facility] provider by calling [facility] [employer] Link at [phone]. For information about the plan of care including goals and instructions for your diagnosis, please see the patient education orders section of this document. Patient Education Materials?? The content of this educational material or handout may have been modified, supplemented, or adapted from its original content and format to support your individualized medical care. Patient Care team information Care Team Personnel Name: Mahesh Barrios MD Position: [facility] Primary Care Physician Member Role: PCP Address: Address: [address] [place] [address] Team Related Persons Name: CLARENCE WHATLEY Address: [place] [address]
--- OUTSIDE RECORDS SUMMARY | 2024-07-20 09:30 | XMS_ITS | Continuity of Care Document ---
Author Organization [facility] Address [address] [facility] [place] [address]- Care Team Providers Care Sumac Tanner Name Role Phone Mahesh Barrios MD Primary Care Physician Encounter 11/20/22 - 01/26/23 [facility] [address], [address] [place] [address]- Attending Physician: Mahesh Barrios MD Admitting Physician: Mahesh Barrios MD Referring Physician: Mahesh Barrios MD Allergies, [...] Refills, Maintenance, 11/20/22 13:30:00 EST, XL Tablet, [facility] #[id number], Partial fill upon patient request if the [...] drug. Start Date: 09/26/22 Status: Ordered ergocalciferol 32505 iu oral capsule 50,000 International_Units, 1, capsule, By Mouth, Every 30 days, # 6 capsule, Refills 2, Tot. Refills 2, Maintenance, 11/20/22 13:32:00 EST, Route to Pharmacy Electronically, [facility] #[id number], Partial fill upon patient request if the [...] 1 Refills, Maintenance, 12/03/22 12:41:00 EST, Tablet, [facility] #[id number], Partial fill upon patient request if the [...] 1 Refills, Maintenance, 10/29/22 16:28:00 EST, Tablet, [facility] #[id number], Partial fill upon patient request if the prescription is for a schedule II opioid drug. Start Date: 10/29/22 Stop Date: 04/27/23 Status: Ordered traZODone 100 mg oral tablet 100 mg, 1, tablet, By Mouth, Daily at bedtime, # 90 tablet, Refills 1, Tot. Refills 1, Maintenance,10/29/22 16:26:00 EST, Route to Pharmacy Electronically, [facility] #[id number], Partial fill upon patient request if the [...] Team Personnel Name: Mahesh Barrios MD Position: [facility] Primary Care Physician Member Role: PCP Address: Address: [address] [place] [address]- Care Team Related Persons Name: CLARENCE WHATLEY Address: [place] [address]
--- OUTSIDE RECORDS SUMMARY | 2024-07-20 09:30 | XMS_ITS | Continuity of Care Document ---
Author Organization [facility] Address [address] [id number]- Care Team Providers Care Inorganic Chemistry Teacher Name Role Phone Mahesh Barrios MD Primary Care Physician Encounter [facility] Date(s): 11/20/22 - 11/27/22 [facility] Adult [address] [address]- [place] Encounter Diagnosis Hypothyroidism(Discharge Diagnosis) - 11/20/22 CKD (chronic kidney disease)(Discharge Diagnosis) - 11/20/22 Barretts esophagus(Discharge Diagnosis) - 11/20/22 SLE (systemic lupus erythematosus)(Discharge Diagnosis) - 11/20/22 Elevated BP without diagnosis of hypertension(Discharge Diagnosis) - 11/20/22 Chronic right shoulder pain(Discharge Diagnosis) - 11/20/22 Urinary incontinence(Discharge Diagnosis) - 11/20/22 Attending Physician: Mahesh Barrios MD Allergies, Adverse [...] Refills, Maintenance, 11/20/22 13:30:00 EST, XL Tablet, [id number], Partial fill upon patient request if the [...] drug. Start Date: 09/26/22 Status: Ordered ergocalciferol 97281 iu oral capsule 50,000 International_Units, 1, capsule, By Mouth, Every 30 days, # 6 capsule, Refills 2, Tot. Refills 2, Maintenance, 11/20/22 13:32:00 EST, Route to Pharmacy Electronically, [facility] #[id number], Partial fill upon patient request if the [...] 1 Refills, Maintenance, 11/20/22 13:30:00 EST, Capsule, [id number], Partial fill upon patient request if the [...] 1 Refills, Maintenance, 10/29/22 16:28:00 EST, Tablet, [facility] #[id number], Partial fill upon patient request if the prescription is for a schedule II opioid drug. Start Date: 10/29/22 Stop Date: 04/27/23 Status: Ordered traZODone 100 mg oral tablet 100 mg, 1, tablet, By Mouth, Daily at bedtime, # 90 tablet, Refills 1, Tot. Refills 1, Maintenance,10/29/22 16:26:00 EST, Route to Pharmacy Electronically, [facility] #[id number], Partial fill upon patient request if the [...] erythematosus) Confirmed Active Urinary incontinence Confirmed Active Diagnosis Diagnosis Type Effective Dates Health Status Clinical Service Informant Hypothyroidism Discharge Diagnosis 11/20/22 CKD (chronic kidney disease) Discharge Diagnosis 11/20/22 Barretts esophagus Discharge Diagnosis 11/20/22 SLE (systemic lupus erythematosus) Discharge Diagnosis 11/20/22 Elevated BP without diagnosis of hypertension Discharge Diagnosis 11/20/22 Chronic right shoulder pain Discharge Diagnosis 11/20/22 Urinary incontinence Discharge Diagnosis 11/20/22 Vital Signs Most recent to oldest [Reference Range]: 1 2 3 Weight 90.0 kg (11/20/22 1:03 PM) Oxygen Saturation [94-100 %] 97 % (11/20/22 1:03 PM) Pulse Rate [55-90 bpm] 75 bpm (11/20/22 1:03 PM) Blood Pressure [90-138/55-84 mm Hg] 160/70mm Hg *H* (11/20/22 1:45 PM) 164/74mm Hg *H* (11/20/22 1:05 PM) 166/82mm Hg *H* (11/20/22 1:03 PM) Respiratory Rate [16-30 br/min] 18 br/min (11/20/22 1:03 PM) Blood pressure sites Arm, left (11/20/22 1:45 PM) Arm, left (11/20/22 1:03 PM) Social History Social History Type Response Smoking Status Never (less than 100 in lifetime) entered on: 09/26/22 Sex Note * Iram Zambrano: PERFORM, SIGN, VERIFY Event Display: Patient Education/Instruction Authored Date: [id number] [facility] *BMP Quab Adlt Med Bltn Clinical Summary Name SHAHZAD IBARRA Age 72 Years 1950 PCP Denis SANCHEZ, Mahesh PCP Visit Date 11/20/2022 12:53:00 Additional Instructions: Scheduled Appointments?? Future Appointments ?[facility] [address]??[place],??[place],??[address] ?Phone:??[phone]?Fax:??-- ?Appt. Date:??12/27/2022?10:30 AM ?Scheduled Provider:??[facility] ?[facility] [address]??[place],??[place],??[address] ?Phone:??[phone]?Fax:??-- ?Appt. Date:??12/27/2022?11:00 AM ?Scheduled Provider:??[facility] Zaid BD ?[facility] ?Phone:??--?Fax:??-- ?Appt. Date:??02/19/2023?2:00 PM ?Scheduled Provider:??Silvestre Weinberg MD Follow-Up Instructions ?? Diagnosis Hypothyroidism, unspecified; Lakhani's esophagus without dysplasia; Systemic lupus erythematosus, unspecified; Chronic kidney disease, unspecified; Elevated blood-pressure reading, without diagnosis of hypertension; Unspecified urinary incontinence; Pain in right shoulder Medications: Please continue your medications until treatment is completed or stopped by your provider. Discuss any questions related to medications with your provider. New Medications These medications were not printed or sent to your pharmacy Flax (Flax Seed Oil oral capsule) 1 capsule 2 times a day. Next Dose: Medications to Continue Taking That Have Changed [facility][id number], [address], [place] [id number], [phone] - BuPROpion (buPROPion 300 mg/24 hours (XL) oral tablet, extended release) 1 tab(s) Oral Daily for 90 Days. Refills: 2. Next Dose: - Ergocalciferol (ergocalciferol 89216 iu oral capsule) 1 capsule Oral every 30 days. Refills: 2. Next Dose: - Levothyroxine (levothyroxine 112 mcg (0.112 mg) oral capsule) 1 capsule Oral Daily for 90 Days. Refills: 1. Next Dose: These medications were not printed or sent to your pharmacy - Esomeprazole (NexIUM 24HR 20 mg oral delayed release capsule) 2 capsule Oral Daily. Next Dose: Medications to Continue with No Changes These medications were not printed or sent to your pharmacy Aspirin (aspirin 81 mg oral capsule) 1 capsule Oral every 4 hours. Next Dose: Calcium And Vitamin D Combination (Citracal Caplets Plus D) Oral twice a day. Next Dose: Diclofenac Topical (diclofenac sodium 1% topical cream) Next Dose: Docusate (Dulcolax Stool Softener) 100 Milligram Oral twice a day. Next Dose: Magnesium Gluconate (magnesium gluconate 250 [...] for 90 Days. Refills: 1. Next Dose: No Longer Take the Following Medications Clonazepam (clonazePAM 0.5 mg oral tablet) 1 tab(s) Oral Daily at Bedtime. vibegron (Gemtesa 75 mg oral tablet) 1 tab(s) Oral Daily for 90 Days. Refills: 1. Allergy Info:?? Zofran Medications Given This Visit Future Orders ?No future orders Vital Signs Height Weight 90.0 kg BMI Blood Pressure 160 mm Hg/70 mm Hg Temperature Pulse Rate 75 bpm Respiratory Rate 18 br/min 02 Sat Mode of Delivery 97 %/ You can now view a summary of your hospital visit from the comfort of your home through a free online portal called [employer]. [employer] is a website that allows you to securely view your medical information including discharge summary, medications and follow-up visits. ??You can alsosend a secure electronic message to your doctor???s office to request appointments, renew medications or just ask a question. You can enroll at [email or web address] or register during your next office visit. [...] primary care provider, you may find a [facility] provider by calling [facility] tri[employer]iece Link at [phone]. For information about the plan of care [...] Team Personnel Name: Mahesh Barrios MD Position: [facility] Primary Care Physician Member Role: PCP Address: Address: [address] [place] [address]- Care Team Related Persons Name: CLARENCE WHATLEY Address: [place] [address]
--- OUTSIDE RECORDS SUMMARY | 2024-07-20 09:30 | XMS_ITS | Continuity of Care Document ---
Author Organization [facility] [employer] Adult [facility] Address [address] [phone]- Care Team Providers Care Cake Froster Name Role Phone Mahesh Barrios MD Primary Care Physician [phone] Encounter [facility] Date(s): 12/07/22 - 12/14/22 [facility] [employer] Adult Medicine [address] [place] [address]- Attending Physician: Lucien Morales MD Allergies, Adverse Reactions, Alerts Substance Reaction [...] Refills, Maintenance, 11/20/22 13:30:00 EST, XL Tablet, [facility] #[id number], Partial fill upon patient request if the [...] drug. Start Date: 09/26/22 Status: Ordered ergocalciferol 39091 iu oral capsule 50,000 International_Units, 1, capsule, By Mouth, Every 30 days, # 6 capsule, Refills 2, Tot. Refills 2, Maintenance, 11/20/22 13:32:00 EST, Route to Pharmacy Electronically, [facility] #[id number], Partial fill upon patient request if the [...] 1 Refills, Maintenance, 12/03/22 12:41:00 EST, Tablet, [facility] #[id number], Partial fill upon patient request if the [...] 1 Refills, Maintenance, 10/29/22 16:28:00 EST, Tablet, [facility] #[id number], Partial fill upon patient request if the prescription is for a schedule II opioid drug. Start Date: 10/29/22 Stop Date: 04/27/23 Status: Ordered traZODone 100 mg oral tablet 100 mg, 1, tablet, By Mouth, Daily at bedtime, # 90 tablet, Refills 1, Tot. Refills 1, Maintenance,10/29/22 16:26:00 EST, Route to Pharmacy Electronically, [facility] #[id number], Partial fill upon patient request if the [...] erythematosus) Confirmed Active Urinary incontinence Confirmed Active Vital Signs Most recent to oldest [Reference Range]: 1 Pulse Rate [55-90 bpm] 67 bpm (12/07/22 1:47 PM) Blood Pressure [90-138/55-84 mm Hg] 131/ 79mm Hg (12/07/22 1:47 PM) Blood pressure sites Arm, left (12/07/22 1:47 PM) Social History Social History Type Response Smoking Status Never (less than 100 in lifetime) entered on: 09/26/22 Sex Patient Care team information Care Team Personnel Name: Mahesh Barrios MD Position: [facility] Primary Care Physician Member Role: PCP Address: Address: [address] [place] [address]- Care Team Related Persons Name: CLARENCE WHATLEY Address: [place] [address]
--- OUTSIDE RECORDS SUMMARY | 2024-07-20 09:30 | XMS_ITS | Continuity of Care Document ---
Author Organization [facility] Adult [facility] Address [address] [phone]- Care Team Providers Care Special Needs Teacher Name Role Phone Mahesh Barrios MD Primary Care Physician Encounter [facility] Date(s): 09/25/22 - 10/25/22 [facility] [employer] [facility] [address] [place], [place] [phone]- [place] Allergies, Adverse Reactions, Alerts Substance Reaction [...] = 300 mg, By Mouth, Daily, # 30 tablet, 0 Refills, Maintenance, 09/26/22 13:12:00 EST, ER Tablet, Partial fill upon patient request if the prescription is for a schedule II opioid drug. Start Date: 09/26/22 Status: Ordered Centrum Silver Women's By Mouth, [...] Status: Ordered clonazePAM 0.5 mg oral tablet 1 tablet = 0.5 mg, By Mouth, Daily at bedtime, # 30 tablet, 0 Refills, Maintenance, 09/26/22 13:14:00 EST, Tablet, Partial fill upon patient request if [...] opioid drug. Start Date: 09/26/22 Status: Ordered Gemtesa 75 mg oral tablet 1 tablet = 75 mg, By Mouth, Daily, 0 Refills, Maintenance, 09/26/22 13:14:00 EST, Partial fill uponpatient request if the prescription is for a schedule II opioid drug. Start Date: 09/26/22 Status: Ordered levothyroxine 112 mcg (0.112 mg) oral capsule 1 capsule = 112 mcg, By Mouth, Daily, # 30 capsule, 0 Refills, Maintenance, 09/26/22 13:13:00 EST, Capsule, Partial fill upon patient request if the prescription is for a schedule II opioid drug. Start Date: 09/26/22 Status: Ordered Lubricant Eye Drops Eyes, Both, [...] 24HR 20 mg oral delayed release capsule 1 capsule = 20 mg, By Mouth, Daily, 0 Refills, Maintenance, 09/26/22 13:17:00 EST, Partial fill upon patient request if the prescription is for a schedule II opioid drug. Start Date: 09/26/22 Status: Ordered raloxifene 60 mg oral tablet 1 tablet = 60 mg, By Mouth, Daily, # 30 tablet, 0 Refills, Maintenance, 09/26/22 13:11:00 EST, Tablet, Partial fill upon patient request if the prescription is for a schedule II opioid drug. Start Date: 09/26/22 Status: Ordered traZODone 100 mg oral tablet 100 mg, 1, tablet, By Mouth, Refills 0, Maintenance, 09/26/22 13:11:00 EST, Partial fill upon patient request if the prescription is for a schedule II opioid drug. Start Date: 09/26/22 Stop Date: 10/26/22 Status: Ordered Vitamin D 82494 iu oral capsule 50,000 International_Units, By Mouth, Daily, Refills 0, Maintenance, 09/26/22 13:14:00 EST, Partialfill upon patient request if the prescription is for a schedule II opioid drug. Start Date: 09/26/22 Status: Ordered Problem List Condition Confirmation Course [...] Team Personnel Name: Mahesh Barrios MD Position: S Primary Care Physician Member Role: PCP Address: Address: [address] [place] [id number]- Care Team Related Persons Name: CLARENCE WHATLEY Address: [place] [address]
--- OUTSIDE RECORDS SUMMARY | 2024-07-20 09:30 | XMS_ITS | Continuity of Care Document ---
Author Organization [facility] [employer] [facility] Adult Or [facility] Address [address] [phone]- Care Team Providers Care Sustainability Executive Director Name Role Phone Mahesh Barrios MD Primary Care Physician Encounter [facility] [id number] Date(s): 12/07/22 - 01/06/23 [facility] [employer] [facility] Adult Medicine [address] [phone]- Attending Physician: Ronald Unger Admitting Physician: AdmtrRonald [...] Refills, Maintenance, 11/20/22 13:30:00 EST, XL Tablet, [facility] #[id number], Partial fill upon patient request if the [...] drug. Start Date: 09/26/22 Status: Ordered ergocalciferol 41045 iu oral capsule 50,000 International_Units, 1, capsule, By Mouth, Every 30 days, # 6 capsule, Refills 2, Tot. Refills 2, Maintenance, 11/20/22 13:32:00 EST, Route to Pharmacy Electronically, [facility] #[id number], Partial fill upon patient request if the [...] 1 Refills, Maintenance, 12/03/22 12:41:00 EST, Tablet, [facility] #[id number], Partial fill upon patient request if the [...] 1 Refills, Maintenance, 10/29/22 16:28:00 EST, Tablet, [facility] #[id number], Partial fill upon patient request if the prescription is for a schedule II opioid drug. Start Date: 10/29/22 Stop Date: 04/27/23 Status: Ordered traZODone 100 mg oral tablet 100 mg, 1, tablet, By Mouth, Daily at bedtime, # 90 tablet, Refills 1, Tot. Refills 1, Maintenance,10/29/22 16:26:00 EST, Route to Pharmacy Electronically, [facility] #[id number], Partial fill upon patient request if the [...] lifetime) entered on: 09/26/22 Sex Note * Event Display: Laboratory Result Scanned Authored Date: * Event Display: Laboratory Result Scanned Authored Date: * Event Display: CT Scan Miscellaneous Authored Date: * Event Display: CT Scan Miscellaneous Authored Date: * Event Display: MRI Shoulder, Non- BH Authored Date: * Event Display: Laboratory Result Scanned Authored Date: CT Head * Event Display: CT Scan Head Authored Date: * Event Display: CT Scan Head Authored Date: MG Breast Views * Event Display: MM Mammogram Authored Date: * Event Display: MM Mammogram Authored Date: Patient Care team information Care Team Personnel Name: Mahesh Barrios MD Position: [facility] Primary Care Physician Member Role: PCP Address: Address: [address] [place] [id number] Care Team Related Persons Name: CLARENCE WHATLEY Address: [place] [address]
--- OUTSIDE RECORDS SUMMARY | 2024-07-20 09:30 | XMS_ITS | Continuity of Care Document ---
Author Organization [facility] Address [address] [facility] [place] [address]- Care Team Providers Care Food Management Aide Name Role Phone Mahesh Barrios MD Primary Care Physician Encounter 12/27/22 - 02/08/23 [facility] [address], [address] [place] [address]- Attending Physician: Mahesh Barrios MD Admitting Physician: [...] Refills, Maintenance, 11/20/22 13:30:00 EST, XL Tablet, [facility] #[id number], Partial fill upon patient request if the [...] drug. Start Date: 09/26/22 Status: Ordered ergocalciferol 63018 iu oral capsule 50,000 International_Units, 1, capsule, By Mouth, Every 30 days, # 6 capsule, Refills 2, Tot. Refills 2, Maintenance, 11/20/22 13:32:00 EST, Route to Pharmacy Electronically, [facility] #[id number], Partial fill upon patient request if the [...] 1 Refills, Maintenance, 12/03/22 12:41:00 EST, Tablet, [facility] #[id number], Partial fill upon patient request if the [...] 1 Refills, Maintenance, 10/29/22 16:28:00 EST, Tablet, [facility] #[id number], Partial fill upon patient request if the prescription is for a schedule II opioid drug. Start Date: 10/29/22 Stop Date: 04/27/23 Status: Ordered traZODone 100 mg oral tablet 100 mg, 1, tablet, By Mouth, Daily at bedtime, # 90 tablet, Refills 1, Tot. Refills 1, Maintenance,10/29/22 16:26:00 EST, Route to Pharmacy Electronically, [facility] #[id number], Partial fill upon patient request if the [...] Team Personnel Name: Mahesh Barrios MD Position: [facility] Primary Care Physician Member Role: PCP Address: Address: [address] [place] [address]- Care Team Related Persons Name: CLARENCE WHATLEY Address: [place] [address]
--- OUTSIDE RECORDS SUMMARY | 2024-07-20 09:30 | XMS_ITS | Continuity of Care Document ---
Author Organization [facility] [employer] Address [address] [place] [address], [address] [place] [address]- Care Team Providers Care Dope Worker Name Role Phone Tushar Arroyo NP [id number] - 06[facility]16/[facility] [address] [facility] [place], [place] [address] Attending Physician: Janette Kothari MD Referring Physician: Tushar Arroyo NP Allergies, Adverse Reactions, Alerts Substance Reaction Severity Status Zofran Throat swelling Active Latex Blisters Active Medications aspirin 81 mg oral capsule 1 capsule = 81 mg, By Mouth, Every 4 hours, 0 Refills, Maintenance, 09/26/22 13:16:00 EST, Partial fill upon patient request if the prescription is for a schedule II opioid drug. Start Date: 09/26/22 Status: Ordered atorvastatin 10 mg oral tablet 1 tablet = 10 mg, By Mouth, Daily at bedtime, # 30 tablet, 0 Refills, Maintenance, 02/11/24 15:23:00 EDT, Partial fill upon patient request if the prescription is for a schedule II opioid drug. Start Date: 02/11/24 Status: Ordered Centrum Silver Women's 1 tablet, By Mouth, Daily, 0 Refills, Maintenance, 09/26/22 13:16:00 EST, Partial fill upon patientrequest if the [...] 1 tablet = 0.5 mg, By Mouth, 2 times a day, 90 each, 0 Refill(s), TAKE 1 TABLET BY MOUTH THREE TIMES DAILY NEEDED FOR ANXIETY, 0 Refills, 02/11/24 15:20:00 EDT, Partial fill upon patient request if the prescription is for a schedule II opioid drug. Start Date: 02/11/24 Status: Ordered Cranberry 2 tablet, By Mouth, Daily at bedtime, 0 Refills, Maintenance, 02/11/24 15:23:00 EDT, Partial [...] weeks then twice weekly, # 42.5 Gm, 5Refills, Maintenance, 05/12/24 16:08:00 EDT, [email or web address] #[id number], Partial fill upon patientrequest if the prescription is for a schedule II op... Start Date: 05/12/24 Status: Ordered Flax Seed Oil oral capsule See Instructions, 1 capsule Daily, # 60 capsule, 0 Refills, Maintenance, 11/20/22 13:28:00 EST, Partial fill upon patient request if the prescription is for a schedule II opioid drug. Start Date: 11/20/22 Status: Ordered gabapentin 300 mg oral capsule 300 mg, 1, capsule, By Mouth, Daily at bedtime, Refills 0, Maintenance, 02/11/24 15:23:00 EDT, Partial fill upon patient request if the prescription is for a schedule II opioid drug. Start Date: 02/11/24 Status: Ordered Gemtesa 75 mg oral tablet 1 tablet = 75 mg, By Mouth, Daily, # 30 tablet, 11 Refills, Maintenance, 02/11/24 16:02:00 EDT, Tablet, [email or web address] #[id number], Partial fill upon patient request if the prescription is for a schedule II opioid drug., 91.9, kg, 02/11/24 15:19:00 E... Start Date: 02/11/24 Status: Ordered levothyroxine 0.112 mg oral tablet 1 tablet = 112 mcg, By Mouth, Daily, # 90 tablet, 1 Refills, Maintenance, 12/03/22 12:41:00 EST, Tablet, [email or web address] #[id number], Partial fill upon patient request if the prescription is for a schedule II opioid drug. Start Date: 12/03/22 Status: Ordered Lubricant Eye Drops Eyes, Both, 4 times a day, 0 Refills, Maintenance, 09/26/22 13:18:00 EST, Partial fill upon patientrequest if the prescription is for a schedule II opioid drug. Start Date: 09/26/22 Status: Ordered meclizine 25 mg oral tablet 1 tablet = 25 mg, By Mouth, 2 times a day, PRN Vertigo, # 60 tablet, 0 Refills, Maintenance, 05/26/24 11:50:00 EDT, Tablet, Partial fill upon patient request if the prescription is for a schedule II opioid drug. Start Date: 05/26/24 Status: Ordered metoclopramide 5 mg oral tablet 1 tablet = 5 mg, By Mouth, 2 times a day, 0 Refills, Maintenance, 05/26/24 11:51:00 EDT, Partial fill upon patient request if the prescription is for a schedule II opioid drug. Start Date: 05/26/24 Status: Ordered NexIUM 24HR 20 mg oral delayed release capsule 2 capsule = 40 mg, By Mouth, 2 times a day, 0 Refills, Maintenance, 09/26/22 13:17:00 EST, Partial fill upon patient request if the prescription is for a schedule II opioid drug. Start Date: 09/26/22 Status: Ordered traZODone 100 mg oral tablet 100 mg, 1, tablet, By Mouth, Daily at bedtime, # 90 tablet, Refills 1, Tot. Refills 1, Maintenance,10/29/22 16:26:00 EST, Route to Pharmacy Electronically, [email or web address] #[id number], Partial fill upon patient request if the prescription is for a sc... Start Date: 10/29/22 Stop Date: 04/27/23 Status: Ordered turmeric 2 capsules, By Mouth, Daily at bedtime, 0 Refills, Maintenance, 02/11/24 15:23:00 EDT, Partial fillupon patient request if the prescription is for [...] Osteopenia Confirmed Active Adenomatous polyp Confirmed Active Severe obesity (BMI 35.0-39.9) with comorbidity Confirmed Active SLE (systemic lupus erythematosus) Confirmed Active Urinary incontinence Confirmed Active Vital Signs Most recent to oldest [Reference Range]: 1 Height 167.6 cm (06/09/24 1:58 PM) Weight 98.7 kg (06/09/24 1:58 PM) Body Mass Index [18.5-24.99 kg/m2] 35.14 kg/m2 *>HHI* (06/09/24 1:58 PM) Blood Pressure [90-138/55-84 mm Hg] 128/ 74mm Hg (06/09/24 1:58 PM) Blood pressure sites Arm, right (06/09/24 1:58 PM) Weight Obtained Via Standing scale (06/09/24 1:58 PM) Social History Social History Type Response Smoking Status Never (less than 100 in lifetime) entered on: 09/26/22 Sex Note * Manuela Zapata: PERFORM Event Display: Patient Education/Instruction Authored Date: [id number] Ambulatory Adult Visit Summary [facility] [address] [facility] [address] [place] [address] Name: SHAHZAD IBARRA : 1950?? Visit: 06/09/2024 13:37?? Ambulatory Visit Instructions ?? Your Care Team Primary Care Provider Cruz RENTERIA , Tushar Mackay? This Visit Provider Taye SANCHEZ , Janette Rajput Vitals Signs Systolic Blood Pressure: 128 mm Hg Height: 167.6 cm Diastolic Blood Pressure: 74 mm Hg Weight: 98.7 kg ?? Body Mass Index:??35.14 kg/m2??Critical ?? Body surface area: 2.14 What to do next Scheduled Follow-Up Appointments Saturday 2:00 PM EDT ?? With: Mateo RENTERIA, Bekah Perkins Where: [facility] [address] [place] [address]- Status: Pending Medications The list below reflects the information in our records and provided by you today along with any changes made during this visit. Please continue your medications until treatment is completed or stopped by your provider. If this is different from the information you have or there are other questions,please contact the prescribing provider. What How Much When Why Instructions Unchanged Aspirin (aspirin 81 mg oral capsule) 1 capsule Oral Every 4 hours Unchanged Atorvastatin (atorvastatin 10 mg oral tablet) 1 tab(s) Oral Daily at Bedtime Unchanged Calcium And Vitamin D Combination (Citracal Caplets Plus D) Oral Twice a day Unchanged Clonazepam (clonazePAM 0.5 mg oral tablet) 1 tab(s) Oral Twice a day 90 each, 0 Refill(s), TAKE 1 TABLET BY MOUTH THREE TIMES DAILY NEEDED FOR ANXIETY ?? Unchanged Cranberry 2 tab(s) Oral Daily at Bedtime Unchanged Docusate (Dulcolax Stool Softener) 100 Milligram Oral Twice a day Unchanged Esomeprazole (NexIUM 24HR 20 mg oral delayed release capsule) 2 capsule Oral Twice a day Unchanged Estradiol Topical (estradiol 0.1 mg/ g vaginal cream) 1 gram Vaginally Daily at Bedtime take every night for two weeks then twice weekly ?? Unchanged Flax (Flax Seed Oil oral capsule) See instructions 1 capsule Daily ?? Unchanged Gabapentin (gabapentin 300 mg oral capsule) 1 capsule Oral Daily at Bedtime Unchanged Levothyroxine (levothyroxine 0.112 mg oral tablet) 1 tab(s) Oral Daily Unchanged Meclizine (meclizine 25 mg oral tablet) 1 tab(s) Oral Twice a day as needed for Vertigo Unchanged Metoclopramide (metoclopramide 5 mg oral tablet) 1 tab(s) Oral Twice a day Unchanged Multivitamin With Minerals (Centrum Silver Women's) 1 tab(s) Oral Daily Unchanged Ocular Lubricant (Lubricant Eye Drops) Both eyes 4 times a day Unchanged Trazodone (traZODone 100 mg oral tablet) 1 tab(s) Oral Daily at Bedtime Duration: 90 Days Unchanged turmeric 2 capsules Oral Daily at Bedtime Unchanged vibegron (Gemtesa 75 mg oral tablet) 1 tab(s) Oral Daily Urinary incontinence Atrophic vaginitis Mixed incontinence Medications and Immunizations Administered Medications Given During Visit No medications given during this visit.?? Allergies (NKA means No Known Allergies) Latex??(Blisters) Zofran??(Throat swelling) Common Emergency Awareness Tips IS IT A STROKE? Act FAST and Check for these signs: FACE Does the face look uneven? ARM Does one arm drift down? SPEECH Does their speech sound strange? TIME Call at any sign of stroke ?? Heart Attack Signs Chest discomfort: Most heart attacks involve discomfort in the center of the chest and lasts more than a few minutes, or goes away and comes back. It can feel like uncomfortable pressure, squeezing, fullness or pain. Discomfort in upper body: Symptoms can include pain or discomfort in one or both arms, back, neck, jaw or stomach. Shortness of breath: With or without discomfort. Other signs: Breaking out in a cold sweat, nausea, or lightheaded. Remember, MINUTES DO MATTER. If you experience any of these heart attack warning signs, call to get immediate medical attention! ?? Smoking can increase your chances of developing chronic health problems and can cause harmful effects to other family members in your house. If you smoke, you are strongly encouraged to quit. Please call [employer] at [phone] or [phone] ([phone]) or log in to [email or web address] for referrals to smoking cessation programs. ?? The National Suicide Prevention Hotline is available 22/04 if you or someone you know needs to find a reason to keep living. By calling 3-686-604-Safehis (9195) you'll be connected to a skilled, trained counselor at a crisis center in your area. [facility] [facility] You can view and manage your care through the patient portal or by using a health care yolette of your choosing. [employer] is a website that allows you to securely view your medical information including your hospital discharge summary, office visit summaries, medications and follow-up visits. You can also request appointments, renew medications, and request access to your medical information using a health care yolette of your choosing, or just ask a question. You can enroll at [email or web address] or register during your next office visit. [facility], in keeping with [facility] guidance, no longer requires face masks for staff, patientsor visitors in most situations. Similiar to time spent indoors at other locations, there is the chance that you were exposed to repiratory viruses during your time with us (such as flu or COVID-19). If you develop symptoms concerning for a viral respiratory infection, please seek testing (and treatment if indicated) from your medical provider or home test kit. ?? Disclaimer: The information provided is of a general nature and is intended to be used in conjunction with the recommendations and advice of your health care practitioner. Every effort has been made to ensure that the information provided is accurate and complete at the time it is provided to you however, as your needs change, or, as new information becomes available, different or additional instructions may be required. ?? If you have questions, please consult with your primary care provider or pharmacist, as appropriate. This information is not intended to serve as substitution for assessment and evaluation by a qualified health care provider. If you do not have a primary care provider, you may find a [facility] provider by calling [facility] [facility] at [phone]. Patient Care team information Care Team Personnel Name: Tushar Arroyo NP Position: Reference Physician Member Role: PCP Address: Address: [address] [place] [address]- Care Team Related Persons Name: CLARENCE WHATLEY Address: [place] [address]
--- OUTSIDE RECORDS SUMMARY | 2024-07-20 09:31 | XMS_ITS | Continuity of Care Document ---
Author Organization [facility] Address [address] [place] [address]- Care Team Providers Care Lift Driver Name Role Phone Mahesh Barrios MD Primary Care Physician Encounter [facility] Date(s): 09/26/22 - 10/03/22 [facility] [address] [place] [address]- Encounter Diagnosis SLE (systemic lupus erythematosus)(Discharge Diagnosis) - 09/26/22 Barretts esophagus(Discharge Diagnosis) - 09/26/22 Hypothyroidism(Discharge Diagnosis) - 09/26/22 Depression with anxiety(Discharge Diagnosis) - 09/26/22 CKD (chronic kidney disease)(Discharge Diagnosis) - 09/26/22 COVID-19 virus infection(Discharge Diagnosis) - 09/26/22 Attending Physician: Mahesh Barrios MD Allergies, Adverse [...] Stop Date: 10/26/22 Status: Ordered Vitamin D 89364 iu oral capsule 50,000 International_Units, By Mouth, Daily, Refills 0, Maintenance, 09/26/22 13:14:00 EST, Partialfill upon patient request if the prescription is for a schedule II opioid drug. Start Date: 09/26/22 Status: Ordered Problem List Condition Confirmation Course Effective Dates Status H ealt Status Informant Barretts esophagus Confirmed Active Chronic [...] Effective Dates Health Status Clinical Service Informant SLE (systemic lupus erythematosus) Discharge Diagnosis 09/26/22 Barretts esophagus Discharge Diagnosis 09/26/22 Hypothyroidism Discharge Diagnosis 09/26/22 Depression with anxiety Discharge Diagnosis 09/26/22 CKD (chronic kidney disease) Discharge Diagnosis 09/26/22 COVID-19 virus infection Discharge Diagnosis 09/26/22 Social History Social History Type Response Smoking Status Never (less than 100 in lifetime) entered on: 09/26/22 Sex Note * Iram Zambrano: PERFORM, SIGN, VERIFY Event Display: Patient Education/Instruction Authored Date: [id number] [facility] *BMP Quab Adlt Med Bltn Clinical Summary Name SHAHZAD IBARRA Age 72 Years 1950 PCP Mahesh Barrios MD PCP Visit Date 09/26/2022 13:00:00 Additional Instructions: Scheduled Appointments?? Future Appointments ?No Future Appointments Scheduled Follow-Up Instructions ?? Diagnosis Chronic kidney disease, unspecified; Lakhani's esophagus without dysplasia; Hypothyroidism, unspecified; COVID-19; Systemic lupus erythematosus, unspecified; Other specified anxiety disorders Medications: Please continue your medications until treatment [...] tablet, extended release) 1 tab(s) Oral Daily. Next Dose: Calcium And Vitamin D Combination (Citracal Caplets Plus D) Oral twice a day. Next Dose: Clonazepam (clonazePAM 0.5 mg oral tablet) 1 tab(s) Oral Daily at Bedtime. Next Dose: Diclofenac Topical (diclofenac sodium 1% topical cream) Next Dose: Docusate (Dulcolax Stool Softener) 100 Milligram Oral twice a day. Next Dose: Ergocalciferol (Vitamin D 23648 iu oral capsule) 50,000 International Unit Oral Daily. Next Dose: Esomeprazole (NexIUM 24HR 20 mg oral delayed release capsule) 1 capsule Oral Daily. Next Dose: Levothyroxine (levothyroxine 112 mcg (0.112 mg) oral capsule) 1 capsule Oral Daily. Next Dose: Magnesium Gluconate (magnesium gluconate 250 mg oral tablet) 1 tab(s) Oral twice a day. Next Dose: Multivitamin With Minerals (Centrum Silver Women's) Oral Daily. Next Dose: Ocular Lubricant (Lubricant Eye Drops) Both eyes 4 times a day. Next Dose: Psyllium (Metamucil 400 mg oral capsule) 5 capsule Oral 4 times a day. Next Dose: Raloxifene (raloxifene 60 mg oral tablet) 1 tab(s) Oral Daily. Next Dose: Trazodone (traZODone 100 mg oral tablet) 1 tab(s) Oral for 30 Days. Next Dose: vibegron (Gemtesa 75 mg oral tablet) 1 tab(s) Oral Daily. Next Dose: Allergy Info:?? Zofran Medications Given This Visit Future Orders ?MM Digital Mammo Screening? Order Date:09/26/22?- Complete by?09/26/22 ?Lipid Panel? Order Date:09/26/22?- Complete by?09/26/22 ?CBC w/ Differential? Order Date:09/26/22?- Complete by?09/26/22 ?Comprehensive Metabolic Panel? Order Date:09/26/22?- Complete by?09/26/22 ?Thyroid Panel? Order Date:09/26/22?- Complete by?09/26/22 Vital Signs Height Weight BMI Blood Pressure / Temperature Pulse Rate Respiratory Rate 02 Sat Mode of Delivery / You can now view a summary of your hospital visit from the comfort of your home through a free online portal called [facility]. [facility] is a website that allows you to securely view your medical information including discharge summary, medications and follow-up visits. ??You can alsosend a secure electronic message to your doctor???s office to request appointments, renew medications or just ask a question. You can enroll at [email or web address] or register during your next [...] primary care provider, you may find a [facility] provider by calling [facility] at [phone]. For information about the plan of care [...] Care Physician Member Role: PCP Address: Address: [address] [place] [address] Medicine, [place] [address]- Care Team Related Persons Name: CLARENCE WHATLEY Address: [place] [address]
--- OUTSIDE RECORDS SUMMARY | 2024-07-20 09:31 | XMS_ITS | Continuity of Care Document ---
Author Organization [facility] Address [address] [place] [address]- Care Team Providers Care Human Resources Advisor Name Role Phone Mahesh Barrios MD Primary Care Physician Encounter [facility] Date(s): 02/19/23 - 03/21/23 [facility] [address] [place] [address]- Attending Physician: Ronald Unger Admitting Physician: AdmRonald medina Referring Physician: AdmtrRonald Allergies, Adverse Reactions, Alerts Substance Reaction Severity [...] Refills, Maintenance, 11/20/22 13:30:00 EST, XL Tablet, [place][id number], Partial fill upon patient request if the [...] drug. Start Date: 09/26/22 Status: Ordered ergocalciferol 85076 iu oral capsule 50,000 International_Units, 1, capsule, By Mouth, Every 30 days, # 6 capsule, Refills 2, Tot. Refills 2, Maintenance, 11/20/22 13:32:00 EST, Route to Pharmacy Electronically, [facility] #[id number], Partial fill upon patient request if the [...] 1 Refills, Maintenance, 12/03/22 12:41:00 EST, Tablet, [facility] #[id number], Partial fill upon patient request if the [...] 1 Refills, Maintenance, 10/29/22 16:28:00 EST, Tablet, [facility] #[id number], Partial fill upon patient request if the prescription is for a schedule II opioid drug. Start Date: 10/29/22 Stop Date: 04/27/23 Status: Ordered traZODone 100 mg oral tablet 100 mg, 1, tablet, By Mouth, Daily at bedtime, # 90 tablet, Refills 1, Tot. Refills 1, Maintenance,10/29/22 16:26:00 EST, Route to Pharmacy Electronically, [facility] #[id number], Partial fill upon patient request if the [...] Team Personnel Name: Mahesh Barrios MD Position: [facility] Physician - Primary Care Member Role: PCP Address: Address: [address] [place] [address]- Care Team Related Persons Name: CLARENCE WHATLEY Address: [place] [address]
--- OUTSIDE RECORDS SUMMARY | 2024-07-20 09:31 | XMS_ITS | Continuity of Care Document ---
Author Organization [facility] Address [address] [facility] [place] [address]- Care Team Providers Care Rotary Drill Rig Operator Name Role Phone Mahesh Barrios MD Primary Care Physician [phone] Encounter 12/27/22 - 01/03/23 [facility] [address], [address] [place] [address]- Attending Physician: Mahesh Barrios MD Admitting Physician: [...] Refills, Maintenance, 11/20/22 13:30:00 EST, XL Tablet, [facility] #[id number], Partial fill upon patient request if the [...] drug. Start Date: 09/26/22 Status: Ordered ergocalciferol 11220 iu oral capsule 50,000 International_Units, 1, capsule, By Mouth, Every 30 days, # 6 capsule, Refills 2, Tot. Refills 2, Maintenance, 11/20/22 13:32:00 EST, Route to Pharmacy Electronically, [facility] #[id number], Partial fill upon patient request if the [...] 1 Refills, Maintenance, 12/03/22 12:41:00 EST, Tablet, [facility] #[id number], Partial fill upon patient request if the [...] 1 Refills, Maintenance, 10/29/22 16:28:00 EST, Tablet, [facility] #[id number], Partial fill upon patient request if the prescription is for a schedule II opioid drug. Start Date: 10/29/22 Stop Date: 04/27/23 Status: Ordered traZODone 100 mg oral tablet 100 mg, 1, tablet, By Mouth, Daily at bedtime, # 90 tablet, Refills 1, Tot. Refills 1, Maintenance,10/29/22 16:26:00 EST, Route to Pharmacy Electronically, [facility] #[id number], Partial fill upon patient request if the [...] erythematosus) Confirmed Active Urinary incontinence Confirmed Active Results Radiology Reports * Exam Date Time Procedure Performing Provider Status 12/27/22 11:53 AM MM Digital Mammo Screening Nallely , Dec il; Auth (Verified) Notes: (MM Digital Mammo Screening) Reason For Exam: Screening RESULT: MM Digital Mammo Screening PROCEDURE: MM Digital Mammo Screening INDICATION: Screening for breast cancer. No known palpable abnormalities. Right breast cancer at age 59, 12:00 scar. Ultrasound-guided left breast biopsy 2003. COMPARISON: 12/20/2021, 12/19/2020, 10/20/2019 [facility]. TECHNIQUE: Full-field digital CC and MLO 3D tomosynthesis images of both breasts were acquired. Computer-aided detection (CAD) was utilized in the interpretation of this study. DENSITY: The breast tissue contains scattered areas of fibroglandular density. FINDINGS: No suspicious masses, suspicious microcalcifications, or areas of architectural distortion are seen in either breast to suggest malignancy. There are stable posttreatment changes in the right breast. Biopsy marker again noted in the outer aspect of the left breast. IMPRESSION: No mammographic evidence of malignancy. RECOMMENDATION: Annual mammographic screening BI-RADS: 2 (Benign) Lay letter mailed to patient WSN: [id number] Ordering Physician: Mahesh Barrios Dictated By: Isaac South MD Dictated Date/Time: 12/27/22 3:12 pm Reviewed By: Isaac South MD Signed By: Isaac South MD Signed Date/Time: 12/27/22 3:12 pm Transcribed By: KASSI Production Recorder Date/Time: 12/27/22 3:06 pm Birads: Social History Social History Type Response Smoking Status Never (less than 100 in lifetime) entered on: 09/26/22 Sex MG Breast Screening * [facility] , CIS S: TRANSCRIBE Isaac South MD: VERIFY Event Display: Result: Authored Date: [id number] PROCEDURE: MM Digital Mammo Screening INDICATION: Screening for breast cancer. No known palpable abnormalities. Right breast cancer at age 59, 12:00 scar. Ultrasound-guided left breast biopsy 2003. COMPARISON: 12/20/2021, 12/19/2020, 10/20/2019 [facility]. TECHNIQUE: Full-field digital CC and MLO 3D tomosynthesis images of both breasts were acquired. Computer-aided detection (CAD) was utilized in the interpretation of this study. DENSITY: The breast tissue contains scattered areas of fibroglandular density. FINDINGS: No suspicious masses, suspicious microcalcifications, or areas of architectural distortion are seen in either breast to suggest malignancy. There are stable posttreatment changes in the right breast. Biopsy marker again noted in the outer aspect of the left breast. IMPRESSION: No mammographic evidence of malignancy. RECOMMENDATION: Annual mammographic screening BI-RADS: 2 (Benign) Lay letter mailed to patient WSN: [id number] Ordering Physician: Mahesh Barrios Dictated By: Isaac Suoth MD Dictated Date/Time: 12/27/22 3:12 pm Reviewed By: Isaac South MD Signed By: Isaac South MD Signed Date/Time: 12/27/22 3:12 pm Transcribed By: KASSI Production Recorder Date/Time: 12/27/22 3:06 pm Birads: Patient Care team information Care Team Personnel Name: Mahesh Barrios MD Position: [facility] Primary Care Physician Member Role: PCP Address: Address: [address] [place] [address]- Care Team Related Persons Name: CLARENCE WHATLEY Address: [place] [address]
--- OUTSIDE RECORDS SUMMARY | 2024-07-20 09:31 | XMS_ITS | Continuity of Care Document ---
Author Organization [facility] Address [address] [id number]- Care Team Providers Care Postal Carrier Name Role Phone Mahesh Barrios MD Primary Care Physician [phone] Encounter [facility] Date(s): 12/31/22 - 01/30/23 [facility] [address] [place] [address]- [place] Allergies, Adverse Reactions, Alerts Substance Reaction [...] Refills, Maintenance, 11/20/22 13:30:00 EST, XL Tablet, [facility] #[id number], Partial fill upon patient request if the [...] drug. Start Date: 09/26/22 Status: Ordered ergocalciferol 64022 iu oral capsule 50,000 International_Units, 1, capsule, By Mouth, Every 30 days, # 6 capsule, Refills 2, Tot. Refills 2, Maintenance, 11/20/22 13:32:00 EST, Route to Pharmacy Electronically, [facility] #[id number], Partial fill upon patient request if the [...] 1 Refills, Maintenance, 12/03/22 12:41:00 EST, Tablet, [facility] #[id number], Partial fill upon patient request if the [...] 1 Refills, Maintenance, 10/29/22 16:28:00 EST, Tablet, [facility] #[id number], Partial fill upon patient request if the prescription is for a schedule II opioid drug. Start Date: 10/29/22 Stop Date: 04/27/23 Status: Ordered traZODone 100 mg oral tablet 100 mg, 1, tablet, By Mouth, Daily at bedtime, # 90 tablet, Refills 1, Tot. Refills 1, Maintenance,10/29/22 16:26:00 EST, Route to Pharmacy Electronically, [facility] #[id number], Partial fill upon patient request if the [...] Team Personnel Name: Mahesh Barrios MD Position: [facility] Primary Care Physician Member Role: PCP Address: Address: [address] [place] [id number] Care Team Related Persons Name: CLARENCE WHATLEY Address: [place] [address]
--- OUTSIDE RECORDS SUMMARY | 2024-07-20 09:31 | XMS_ITS | Continuity of Care Document ---
Author Organization [facility] Address [address] [place] [address], [address] [place] [address]- Care Team Providers Care Curing Machine Operator Name Role Phone Cruz RENTERIA, Tushar Mackay Primary Care Physician Encounter [facility] Date(s): 06/18/24 - 07/18/24 [facility] [address] [facility] [place] [address]- Allergies, Adverse Reactions, Alerts Substance Reaction Severity [...] 42.5 Gm, 5Refills, Maintenance, 05/12/24 16:08:00 EDT, [facility] #[id number], Partial fill upon patientrequest if the prescription [...] 11 Refills, Maintenance, 02/11/24 16:02:00 EDT, Tablet, [facility] #[id number], Partial fill upon patient request if the prescription is for a schedule II opioid drug., 91.9, kg, 02/11/24 15:19:00 E... Start Date: 02/11/24 Status: Ordered levothyroxine 0.112 mg oral tablet 1 tablet = 112 mcg, By Mouth, Daily, # 90 tablet, 1 Refills, Maintenance, 12/03/22 12:41:00 EST, Tablet, [facility] #[id number], Partial fill upon patient request if the [...] Maintenance,10/29/22 16:26:00 EST, Route to Pharmacy Electronically, [facility] #[id number], Partial fill upon patient request if the [...] Reference Physician Member Role: PCP Address: Address: [address] [place] [address]- Care Team Related Persons Name: CLARENCE WHATLEY Address: [place] [address]
--- OUTSIDE RECORDS SUMMARY | 2024-07-20 09:31 | XMS_ITS | Continuity of Care Document ---
Author Organization [facility] ter Address [address] [place] [address]- Care Team Providers Care High Pressure Cleaner Name Role Phone Cruz RENTERIA, Tushar Mackay Primary Care Physician [phone] [facility] Date(s): 05/27/24 - 05/27/[address] [address]- Discharge Disposition: A-D/C Home Attending Physician: Janette Kothari MD Admitting Physician: Janette Kothari MD Referring Physician: Janette Kothari MD Allergies, Adverse Reactions, Alerts Substance Reaction [...] 42.5 Gm, 5Refills, Maintenance, 05/12/24 16:08:00 EDT, [id number], Partial fill upon patientrequest if the prescription [...] 11 Refills, Maintenance, 02/11/24 16:02:00 EDT, Tablet, [facility][id number], Partial fill upon patient request if the prescription is for a schedule II opioid drug., 91.9, kg, 02/11/24 15:19:00 E... Start Date: 02/11/24 Status: Ordered levothyroxine 0.112 mg oral tablet 1 tablet = 112 mcg, By Mouth, Daily, # 90 tablet, 1 Refills, Maintenance, 12/03/22 12:41:00 EST, Tablet, [facility] #[id number], Partial fill upon patient request if the [...] opioid drug. Start Date: 09/26/22 Status: Ordered nitrofurantoin macrocrystals-monohydrate 100 mg oral capsule 1 capsule = 100 mg, By Mouth, 2 times a day, for 7 days, # 14 capsule, 0 Refills, Acute 06/03/24 12:16:00 EDT, 05/27/24 12:16:00 EDT, Capsule, [facility] #[id number], Partial fill upon patient request if the prescription is for a schedule II opio... Start Date: 05/27/24 Stop Date: 06/03/24 Status: Ordered Pyridium 100 mg oral tablet 1 tablet = 100 mg, By Mouth, 3 times a day, for 7 days, # 21 tablet, 0 Refills, Acute 06/03/24 12:16:00 EDT, 05/27/24 12:16:00 EDT, Tablet, [facility] #[id number], Partial fill upon patient request if the prescription is for a schedule II opioid... Start Date: 05/27/24 Stop Date: 06/03/24 Status: Ordered traZODone 100 mg oral tablet 100 mg, 1, tablet, By Mouth, Daily at bedtime, # 90 tablet, Refills 1, Tot. Refills 1, Maintenance,10/29/22 16:26:00 EST, Route to Pharmacy Electronically, [facility] #[id number], Partial fill upon patient request if the [...] Confirmed Active Depression with anxiety Confirmed Active Obese class I Confirmed Active Osteopenia Confirmed Active Adenomatous polyp Confirmed Active SLE (systemic lupus erythematosus) Confirmed Active Urinary incontinence Confirmed Active Vital Signs Most recent to oldest [Reference Range]: 1 2 3 Height 167.6 cm (05/27/24 12:20 PM) 167.6 cm (05/26/24 12:08 PM) Weight 98.3 kg (05/27/24 12:20 PM) 98.3 kg (05/26/24 12:08 PM) Oxygen Saturation [94-100 %] 98 % (8/28/24 1:45 PM) 100 % (05/27/24 1:30 PM) 99 % (05/27/24 1:15 PM) Pulse Rate [55-90 bpm] 60 bpm (05/27/24 12:20 PM) Body Mass Index [18.5-24.99 kg/m2] 34.99 kg/m2 *>HHI* (05/27/24 12:20 PM) 34.99 kg/m2 *>HHI* (05/26/24 12:08 PM) Blood Pressure [90-138/55-84 mm Hg] 172/75mm Hg *H* (05/27/24 1:45 PM) 163/75mm Hg *H* (05/27/24 1:30 PM) 161/64mm Hg *H* (05/27/24 1:15 PM) Respiratory Rate [16-30 br/min] 16 br/min (05/27/24 1:45 PM) 26 br/min (05/27/24 1:30 PM) 13 br/min *L* (05/27/24 1:15 PM) Temperature [96.8-100.4 DegF] 97.3 DegF (05/27/24 1:45 PM) 97.1 DegF (05/27/24 1:15 PM) 98.1 DegF (05/27/24 12:20 PM) Liters per Minute 6 L/min (05/27/24 1:15 PM) Mode of Delivery (Oxygen) Room air (05/27/24 2:00 PM) Room air (05/27/24 1:30 PM) Simple face mask (05/27/24 1:15 PM) Blood pressure sites Arm, left (05/27/24 1:15 PM) Arm, left (05/27/24 12:20 PM) Temperature Route Temporal (05/27/24 1:45 PM) Temporal (05/27/24 1:15 PM) Temporal (05/27/24 12:20 PM) Dry Weight 98.3 kg (05/26/24 12:08 PM) Weight Obtained Via Standing scale (05/27/24 12:20 PM) Patient/family stated (05/26/24 12:08 PM) Dry Weight Obtained Via Patient/family s tated (05/26/24 12:08 PM) Social History Social History Type Response Smoking Status Never (less than 100 in lifetime) entered on: 09/26/22 Sex Note * Reina Chamorro RN: PERFORM Event Display: Discharge/Transfer Note Hospital Authored Date: [id number] Nursing Discharge Note Entered On: 05/27/2024 14:23 EDT Performed On: 05/27/2024 14:22 EDT by Reina Chamorro RN Nursing Discharge Note 2 Discharge Time : 05/27/2024 14:11 EDT Discharge Level of Care at Discharge : Home/Chcf/Foster Care Patient Left Unit Via : Wheelchair Patient Accompanied Off Unit with : Parent DC Instructions Provided & Signed by Pt : Yes Patient Understands D/C Instructions : Yes Patient Instructions Discharge Signed : Yes Did Pt have Specialty Bed or Wound Vac : No Reina Chamorro RN - 05/27/2024 14:22 EDT * Reina Chamorro RN: PERFORM, MODIFY Event Display: Patient Education/Instruction Authored Date: [id number] Surgery Adult Discharge Instructions [place] [id number] Name: SHAHZAD IBARRA : 1950?? Visit: 05/27/2024 10:29?? Current Date: 05/27/2024 13:56 ?? Account: [id number]?? Surgery Discharge Instructions We would like to thank you for allowing us to assist you with your healthcare needs. The following includes patient education materials and information regarding your injury/illness. Our entire staffstrives to provide an excellent experience for our patients and their families. PLEASE ENSURE YOU FOLLOW-UP PER THE INSTRUCTIONS BELOW! ?? YOUR OPINION IS IMPORTANT TO US! Please complete the survey you may receive by mail or email. Your feedback will be used to make improvements to the healthcare experiences of our patients and their families. Surveys are administered by [employer] ?? If further treatment with your primary care physician or another doctor is recommended, it is important for you to keep the appointment. Call your primary care physician or return to the Emergency Department immediately if your condition worsens, fails to improve, or new symptoms develop. If you need to find a doctor, you can call [facility] Link for a referral at [phone] or toll free at [phone] ([phone]) or log in to [email or web address].. ?? [facility], in keeping with [facility] guidance, no longer requires face masks for [...] medical provider or home test kit. ?? You can view and manage your care through the patient portal or by using a health care yolette of your choosing. [facility] is a website that allows you to securely view your medical information including your hospital discharge summary, office visit summaries, medications and follow-up visits. You can also request appointments, renew medications, and request access to your medical information using a health care yolette of your choosing, or just ask a question. You are entitled to know the individuals who participated in your treatment. This information is available within your medical record and will be provided upon your request. You can enroll at [email or web address] or register d uring your next office visit. You have been discharged from [facility], Patient Care Unit: [facility]??. If you have any questions regarding these instructions after you leave, please call us and we will be happy to assist you. [facility] Your Care Team Attending Physician Janette Kothari MD?? Discharging Providers Janette Kothari MD Reason for Admission OVER ACTIVE BLADDERCS DS Primary Care Provider Tushar Arroyo NP? Advance Directive Health Care Proxy on File No What to do next Instructions From Your Doctor ?? Orders? 05/27/24 13:46:00 EDT?? Scheduled Follow-Up Appointments Saturday 1:40 PM EDT ?? With: Janette Kothari MD Where: [facility] UROGYN [address] [address] [place] [address]- Status: Pending You Need to Schedule the Following Appointments Follow Up with??Janette Kothari Where: [address] [facility] [place] [address]- Business (1) Follow Up with??Tushar Arroyo NP When:??In 0 days Where: [address] [place] [address]- Business (1) Discharge Medications SHAHZAD IBARRA :1950 Visit Date:05/27/2024 Medications: Please continue your medications until treatment is completed or stopped by your provider. You may resume your daily prescription medications. Discuss any questions related to medications with your provider. What How Much When Why Instructions Next Dose New Nitrofurantoin (nitrofurantoin macrocrystals-monohydrate 100 mg oral capsule) 1 capsule Oral Twice a day Duration: 7 Days Pickup at [email or web address] #[id number] New Phenazopyridine (Pyridium 100 mg oral tablet) 1 tab(s) Oral 3 times a day Duration: 7 Days Pickup at [email or web address] #[email or web address] 8pm Unchanged Aspirin (aspirin 81 mg oral capsule) [...] Daily Urinary incontinence Atrophic vaginitis Mixed incontinence Pharmacy Information [facility] #[id number]: [address], [place] [phone] Allergies (NKA means No Known Allergies) Latex??(Blisters) Zofran??(Throat swelling) Education Materials Below is the list of Educational Leaflet Providered with your Discharge Instructions. [employer] Patient Education - Surgery Medical Daystay Surgical Overnight Discharge Instructions?? Valuables and Belongings I fully understand and agree that [facility] accepts no responsibility for all my personal property including clothing, toilet articles, radios, jewelry, dentures, hearing aids, rings, money, or any other property that is in my possession or is brought to me after admission. I understand certain valuables may be placed in a hospital safe for a short period of time. I understand that the hospital is not liable for loss or damage due to accident, fire, or other natural occurrence while said property is in the safe. I accept full responsibility for any personal property that I keep with me, and will not hold the hospital responsible in case of loss or disappearance. I acknowledge that i have been encouraged to send valuables and belongings home. ?? Date for Pt to Sign Valuables/Belongings: 05/27/24 12:44:00 ?? Valuables & Belongings ?? Clothes Electronic devices Jewelry Monetary Items Personal devices Miscellaneous Medications (Valuables) Valuables at Bedside Pants, Shirt, Shoes, Undergarments ? Glasses ? Valuables Sent Home ? Valuables Sent to Security ? Valuables Sent to Locker ? Other Discharge Information ? Pulmonary Rehab Status?? Pulmonary Rehab Discharge Status?? Respiratory Rate: 26 br/min ? Common Emergency Awareness Tips IS IT A [...] are strongly encouraged to quit. Please call [facility] [employer] Link at [phone] or [phone] [employer] [phone] ([phone]) or log in to [email or web address] for referrals to smoking cessation programs. ?? The National Suicide Prevention Hotline is available 22/04 if you or someone you know needs to find a reason to keep living. By calling 2-584-743-[employer] (8780) you'll be connected to a skilled, trained counselor at a crisis center in your area. SURGERY DISCHARGE INSTRUCTIONS SIGNATURE PAGE SHAHZAD IBARRA Location:[facility] Registration Date and Time:05/27/2024 10:29 EDT Primary Care Physician: Cruz RENTERIA , Tushar Mackay, Attending Physician: Taye SANCHEZ, Janette Rajput, I SHAHZAD IBARRA, have received the above patient education materials/instructions and have verbalized understanding. If ambulance or transport services are being used I further acknowledge being given a choice of service. ?? If you need to contact me, please call me at this number: . Patient/Electrical Accessories Ii Assembler Name: Patient/Electrical Accessories Ii Assembler Signature: Relationship to Patient: Witness Name/Signature: Date: * Reina Chamorro RN: PERFORM, SIGN, VERIFY Event Display: Patient Education Handout Authored Date: [id number] * Reina Chamorro RN: PERFORM Event Display: Patient Education Leaflets Authored Date: [id number] Surgery Medical Daystay Surgical Overnight Discharge Instructions ?? 295 Medical Daystay/Surgical Overnight Discharge Instructions ? Since your coordination and judgment may be altered by medication and/or anesthesia, a responsible adult must drive you home from the hospital. ? If you have received medication for pain or sedation while under our care, you should not drive, operate machinery, drink alcohol, or sign any legal documents for 24 hours.?? You should have someone with you at home tonight. ? Remain at home the day of discharge.?? You may be up and about unless otherwise instructed by your physician. ? You may resume your daily prescription medication schedule.?? Any depressant medication should be avoided for 24 hours unless otherwise instructed by your surgeon or anesthesiologist. ? Call your physician for a follow-up appointment.? If you experience unusual or severe pain not relied by your pain medication, excessive bleedingor drainage, persistent nausea and vomiting, excessive swelling or redness, foul odor from incisionsite or fever over 100.6F, you need to call your physician. ? A follow-up phone call by a nurse will be made the day after your procedure.?? If you have stayed with us over night, you will not be receiving a follow-up phone call. ? Nausea and vomiting are a common side effect of prescription pain medication.?? We recommend that pills are not taken on an empty stomach.?? While taking any prescription pain medication you should not drive or drink alcohol. ? Patient Care team information Care Team Personnel Name: Cruz RENTERIA , Tushar Mackay Position: Reference Physician Member Role: PCP Address: Address: [address] [place] [address]- Care Team Related Persons Name: CLARENCE WHATLEY Address: [place] [address]
--- OUTSIDE RECORDS SUMMARY | 2024-07-20 09:31 | XMS_ITS | Continuity of Care Document ---
Author Organization [facility] Address [address] [id number]- Care Team Providers Care Business Office Coordinator Name Role Phone Mahesh Barrios MD Primary Care Physician Encounter [facility] Date(s): 12/19/22 - 01/18/23 [email or web address] [address] [id number]- [place] Allergies, Adverse Reactions, Alerts Substance Reaction [...] Refills, Maintenance, 11/20/22 13:30:00 EST, XL Tablet, [facility] #[id number], Partial fill upon patient request if the [...] drug. Start Date: 09/26/22 Status: Ordered ergocalciferol 81368 iu oral capsule 50,000 International_Units, 1, capsule, By Mouth, Every 30 days, # 6 capsule, Refills 2, Tot. Refills 2, Maintenance, 11/20/22 13:32:00 EST, Route to Pharmacy Electronically, [facility] #[id number], Partial fill upon patient request if the [...] 1 Refills, Maintenance, 12/03/22 12:41:00 EST, Tablet, [facility] #[id number], Partial fill upon patient request if the [...] 1 Refills, Maintenance, 10/29/22 16:28:00 EST, Tablet, [facility] #[id number], Partial fill upon patient request if the prescription is for a schedule II opioid drug. Start Date: 10/29/22 Stop Date: 04/27/23 Status: Ordered traZODone 100 mg oral tablet 100 mg, 1, tablet, By Mouth, Daily at bedtime, # 90 tablet, Refills 1, Tot. Refills 1, Maintenance,10/29/22 16:26:00 EST, Route to Pharmacy Electronically, [facility] #[id number], Partial fill upon patient request if the [...] Team Personnel Name: Mahesh Barrios MD Position: [facility] Primary Care Physician Member Role: PCP Address: Address: [address] [place] [address]- Care Team Related Persons Name: CLARENCE WHATLEY Address: [place] [address]
--- OUTSIDE RECORDS SUMMARY | 2024-07-20 09:31 | XMS_ITS | Continuity of Care Document ---
Author Organization 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 [address] [facility] [place] [address]- Attending Physician: Janette Kothari MD Referring Physician: [...] Refills, Maintenance, 11/20/22 13:30:00 EST, XL Tablet, [facility] #[id number], Partial fill upon patient request if the [...] II opioi... Start Date: 02/11/24 Status: Ordered estradiol 0.1 mg/g vaginal cream = 1 Gm, Vaginally, Daily at bedtime, take every night for two weeks then twice weekly, # 42.5 Gm, 5Refills, Maintenance, 05/12/24 16:08:00 EDT, [facility] #[id number], Partial fill upon patientrequest if the prescription [...] 11 Refills, Maintenance, 02/11/24 16:02:00 EDT, Tablet, [facility] #[id number], Partial fill upon patient request if the prescription is for a schedule II opioid drug., 91.9, kg, 02/11/24 15:19:00 E... Start Date: 02/11/24 Status: Ordered levothyroxine 0.112 mg oral tablet 1 tablet = 112 mcg, By Mouth, Daily, # 90 tablet, 1 Refills, Maintenance, 12/03/22 12:41:00 EST, Tablet, [facility] #[id number], Partial fill upon patient request if the [...] Maintenance,10/29/22 16:26:00 EST, Route to Pharmacy Electronically, [facility] #[id number], Partial fill upon patient request if the [...] recent to oldest [Reference Range]: 1 Weight 98.3 kg (05/12/24 3:53 PM) Blood Pressure [90-138/55-84 mm Hg] 134/ 72mm Hg (05/12/24 3:53 PM) Blood pressure sites Arm, right (05/12/24 3:53 PM) Weight Obtained Via Standing scale (05/12/24 3:53 PM) Social History Social History Type Response Smoking Status Never (less than 100 in lifetime) entered on: 09/26/22 Sex Note * Chris Charlton: PERFORM Event Display: Patient Education/Instruction Authored Date: [id number] Ambulatory Adult Visit Summary [facility] UR[facility]YN [address] [facility] [address] [place] [address] Name: SHAHZAD IBARRA : 1950?? Visit: 05/12/2024 15:26?? Ambulatory Visit Instructions ?? Your Care Team Primary Care Provider Cruz RENTERIA , Tushar Mackay? This Visit Provider Taye SANCHEZ , Janette Rajput Your Diagnosis Rectocele Mixed incontinence Atrophic vaginitis Vitals Signs Systolic Blood Pressure: 134 mm Hg Weight: 98.3 kg Diastolic Blood Pressure: 72 mm Hg ?? What to do next Scheduled Follow-Up Appointments Saturday 2:00 PM EDT ?? Where: [facility] Status: Pending Saturday 1:40 PM EDT ?? With: Janette Kothari MD [facility] [address] [facility] [address] [facility] [address] [place] [address]- Status: Pending Medications The list below reflects the information in our records and provided by you today along with any changes made during this visit. Please continue your medications until treatment is completed or stopped by your provider. If this is different from the information you have or there are other questions,please contact the prescribing provider. What How Much When Why Instructions Changed Estradiol Topical (estradiol 0.1 mg/ g vaginal cream) 1 gram Vaginally Daily at Bedtime take every night for two weeks then twice weekly ?? Pickup at [facility] #[id number] Changed Estradiol Topical (estradiol 0.1 mg/ g vaginal cream) 1 gram Vaginally Daily at Bedtime Urinary incontinence Atrophic vaginitis Mixed incontinence take every night for two weeks then twice weekly ?? Unchanged Aspirin (aspirin 81 mg oral capsule) 1 capsule Oral Every 4 hours Unchanged Atorvastatin (atorvastatin 10 mg oral tablet) 1 tab(s) Oral Daily Unchanged BuPROpion (buPROPion 300 mg/ 24 hours (XL) oral tablet, extended release) 1 tab(s) Oral Daily Duration: 90 Days Unchanged Calcium And Vitamin D Combination (Citracal Caplets Plus D) Oral Twice a day Unchanged Clonazepam (clonazePAM 0.5 mg oral tablet) 90 each, 0 Refill(s), TAKE 1 TABLET BY MOUTH THREE TIMES DAILY NEEDED FOR ANXIETY ?? Unchanged Cranberry Unchanged Docusate (Dulcolax Stool Softener) 100 Milligram Oral Twice a day Unchanged Esomeprazole (NexIUM 24HR 20 mg oral delayed release capsule) 2 capsule Oral Daily Unchanged Flax (Flax Seed Oil oral capsule) See instructions 1 capsule 2 times a day ?? Unchanged Gabapentin (gabapentin 300 mg oral capsule) 1 capsule Oral 3 times a day Unchanged Levothyroxine (levothyroxine 0.112 mg oral tablet) 1 tab(s) Oral Daily Unchanged Magnesium Gluconate (magnesium gluconate 250 mg oral tablet) 1 tab(s) Oral Twice a day Unchanged Multivitamin With Minerals (Centrum Silver Women's) Oral Daily Unchanged Ocular Lubricant (Lubricant Eye Drops) Both eyes 4 times a day Unchanged Trazodone (traZODone 100 mg oral tablet) 1 tab(s) Oral Daily at Bedtime Duration: 90 Days Unchanged turmeric Oral Daily Unchanged vibegron (Gemtesa 75 mg oral tablet) 1 tab(s) Oral Daily Urinary incontinence Atrophic vaginitis Mixed incontinence [id number] [address], [place] [phone] Medications and Immunizations Administered Medications Given During Visit No medications given during this visit.?? Allergies (NKA means No Known Allergies) Latex Zofran Common Emergency Awareness Tips IS IT A [...] are strongly encouraged to quit. Please call [employer] Link at [phone] or [phone] ([phone]) or log in to [email or web address] for referrals to smoking cessation programs. ?? The National Suicide Prevention Hotline is available 22/04 if you or someone you know needs to find a reason to keep living. By calling 4-142-490-Wimba (8905) you'll be connected to a skilled, trained counselor at a crisis center in your area. [facility] Health Portal You can view and manage your care through the patient portal or by using a health care yolette of your choosing. [employer] is a website that allows you to securely view your medical information including your hospital discharge summary, office visit summaries, medications and follow-up visits. You can also request appointments, renew medications, and request access to your medical information using a health care yolette of your choosing, or just ask a question. You can enroll at [email or web address] or register during your next office visit. [facility], in keeping with [facility] guidance, no longer requires face masks [...] primary care provider, you may find a [facility] provider by calling [facility] [employer] Link at [phone]. Patient Care team information Care Team Personnel Name: Tushar Arroyo NP Position: Reference Physician Member Role: PCP Address: Address: [address] [place] [address]- Care Team Related Persons Name: CLARENCE WHATLEY Address: [place] [address]
--- OUTSIDE RECORDS SUMMARY | 2024-07-20 09:31 | XMS_ITS | Continuity of Care Document ---
Author Organization [facility] Address [address] [place] [address]- Care Team Providers Care Felt Finisher Name Role Phone Mahesh Barrios MD Primary Care Physician Encounter [facility] Date(s): 11/21/22 - 03/21/23 [facility] [address] [place] [address]- Attending Physician: Silvestre Weinberg MD Referring Physician: Mahesh Barrios MD Allergies, [...] Refills, Maintenance, 11/20/22 13:30:00 EST, XL Tablet, [id number], Partial fill upon patient request if the [...] drug. Start Date: 09/26/22 Status: Ordered ergocalciferol 55388 iu oral capsule 50,000 International_Units, 1, capsule, By Mouth, Every 30 days, # 6 capsule, Refills 2, Tot. Refills 2, Maintenance, 11/20/22 13:32:00 EST, Route to Pharmacy Electronically, [facility] #[id number], Partial fill upon patient request if the [...] 1 Refills, Maintenance, 12/03/22 12:41:00 EST, Tablet, [facility] #[id number], Partial fill upon patient request if the [...] 1 Refills, Maintenance, 10/29/22 16:28:00 EST, Tablet, [facility] #[id number], Partial fill upon patient request if the prescription is for a schedule II opioid drug. Start Date: 10/29/22 Stop Date: 04/27/23 Status: Ordered traZODone 100 mg oral tablet 100 mg, 1, tablet, By Mouth, Daily at bedtime, # 90 tablet, Refills 1, Tot. Refills 1, Maintenance,10/29/22 16:26:00 EST, Route to Pharmacy Electronically, [facility] #[id number], Partial fill upon patient request if the [...] Personnel Name: Mahesh Barrios MD Position: S Physician - Primary Care Member Role: PCP Address: Address: [address] [place] [id number]- Care Team Related Persons Name: CLARENCE WHATLEY Address: [place] [address]
--- OUTSIDE RECORDS SUMMARY | 2024-07-20 09:31 | XMS_ITS | Continuity of Care Document ---
Author Organization [facility] Address [address] [id number]- Care Team Providers Care Echocardiography Tech Name Role Phone Mahesh Barrios MD Primary Care Physician Encounter [facility] Date(s): 11/21/22 - 12/21/22 [facility] [address] [place] [address]- [place] Allergies, Adverse Reactions, Alerts Substance Reaction [...] Refills, Maintenance, 11/20/22 13:30:00 EST, XL Tablet, [facility] #[id number], Partial fill upon patient request if the [...] drug. Start Date: 09/26/22 Status: Ordered ergocalciferol 15705 iu oral capsule 50,000 International_Units, 1, capsule, By Mouth, Every 30 days, # 6 capsule, Refills 2, Tot. Refills 2, Maintenance, 11/20/22 13:32:00 EST, Route to Pharmacy Electronically, [facility] #[id number], Partial fill upon patient request if the [...] 1 Refills, Maintenance, 12/03/22 12:41:00 EST, Tablet, [facility] #[id number], Partial fill upon patient request if the [...] 1 Refills, Maintenance, 10/29/22 16:28:00 EST, Tablet, [facility] #[id number], Partial fill upon patient request if the prescription is for a schedule II opioid drug. Start Date: 10/29/22 Stop Date: 04/27/23 Status: Ordered traZODone 100 mg oral tablet 100 mg, 1, tablet, By Mouth, Daily at bedtime, # 90 tablet, Refills 1, Tot. Refills 1, Maintenance,10/29/22 16:26:00 EST, Route to Pharmacy Electronically, [facility] #[id number], Partial fill upon patient request if the [...] Team Personnel Name: Mahesh Barrios MD Position: [facility] Primary Care Physician Member Role: PCP Address: Address: [address] [place] [id number] Care Team Related Persons Name: CLARENCE WHATLEY Address: [place] [address]
--- OUTSIDE RECORDS SUMMARY | 2024-07-20 09:31 | XMS_ITS | Continuity of Care Document ---
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
[2024-07-20 09:55] VITALS: BMI 34.1
[2024-07-20 10:07] VITALS: BP 182/52; PULSE 68; RESP 16; TEMP 36.8; O2SAT 96
[2024-07-20] MEDS: Lactated Ringers 1,000 ML 100 ML IVCONT (10:24)
[2024-07-20 10:28] VITALS: BP 140/76; PULSE 74; RESP 16; TEMP 36.6; O2SAT 97
--- NOTE | 2024-07-20 10:47 | MHC.SHP ---
Pre-Procedural Eval Section A - 24 Hr Update-Section A only Date of Service: 07/20/24 The patient is an INPATIENT: No The patient has been examined within 24 hours of the surgical procedure. The History & Physical has been completed within 30 days and I have reviewed it.: No Section B - Complete if H&P > 30 days Chief Complaint: FU of gastric polyp Relevant Family History (Specify if Yes): No Relevant Social History: None Present Medications: see Short Stay Collaborative assessment Medical History: Significant History (Bilateral knee pain Postmenopausal Breast cancer Fracture of femoral neck, left Pulmonary nodule Preoperative clearance Early satiety Nausea Right shoulder pain Nausea and vomiting Pre-op examination History of breast cancer Skin lesions Screening for lipid disorders Irritable bowel syndrome with co) History of Previous Operations: Relevant previous surgery/procedure and date(s) (H/O shoulder surgery Hx of tonsillectomy History of hip surgery History of esophagogastroduodenoscopy (EGD) H/O colonoscopy History of cholecystectomy) Allergies: Allergies Allergy/AdvReac Type Severity Reaction Status Date / Time adhesive Allergy Severe Hives Verified 05/06/24 14:11 ondansetron Allergy Unknown ANAPHYLAXIS Verified 05/06/24 14:11 [From ZOFRAN ( HYDROCHLORIDE)] Review of Systems Sugical H&P ROS: Negative: Constitution, Cardiovascular, Respiratory and Gastrointestinal Exam Surgical H&P Exam: Normal: Heart, Normal: Lungs, Normal: Extremities and Normal: Abdomen Plan Diagnosis/Plan: Unchanged I have reviewed the history and physical and performed a pertinent physical examination on my patient. No changes have occurred unless specified. Time Spent With Patient Time: Total time managing care of this patient today ____ minutes.
--- NOTE | 2024-07-20 11:29 | W.PM.OPN ---
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 Verito Grigsby MD Anesthesia:?MAC UPPER ENDOSCOPY Consent: Indications for the procedure and potential complications of bleeding, perforation, reaction to medications and missed diagnosis were discussed with the patient and informed consent was obtained. Instrument: Olympus GIF H 190 mid size upper endoscope Monitoring: Vital signs and clinical assessment, continuous EKG monitoring, Pulse oximetry, Carbon Dioxide monitoring and blood pressure monitoring were done throughout the procedure. Procedure: The patient was placed in the left lateral decubitis position and pre-procedure medications were administered and a bite block was placed. The endoscope was inserted into the mouth and advanced under direct vision to the third part of duodenum. A careful inspection was made as the upper endoscope was withdrawn including a retroflexed examination of the proximal stomach; Findings and interventions are described below. Findings: Larynx: Normal Esophagus: GE junction at 32 cms, hiatal hernia 32 to 35 cms. A 1 cms tongue of possible Lakhani's - Biopsies obtained during previous EGD were negative for Lakhani's. No esophagitis Stomach: Multiple 5 -10 mm benign appearing polyps in the gastric body. A 2.5 to 3 cms polyp at 40 cms along the greater curvature - polyp was raised with 10 cc of Eleview and removed piece-meal with a stiff hot snare. Polypectomy site was closed with one hemoclip Moderate diffuse gastric erythema - biopsies obtained during past EGD were negative for H pylori. Grade 3 flap valve on retroflexed examination of the cardia. Duodenum: Normal bulb and descending duodenum Impression and Post Procedure Diagnosis: Endoscopy Findings: ESOPHAGUS: STOMACH: Plan: Pt has a FU appointment on 08/06/24 with Maxine Diaz NP. Above findings were reviewed with the patient and relevant handouts were given and the discharge area.
[2024-07-20 11:31] VITALS: BP 103/44; PULSE 88; RESP 16; TEMP 36.1; O2SAT 94
[2024-07-20 11:45] VITALS: BP 136/77; PULSE 65; RESP 16; O2SAT 94
[2024-07-20 12:00] VITALS: BP 143/44; PULSE 71; RESP 16; O2SAT 95
[2024-07-20 12:14] VITALS: BP 144/61; PULSE 73; RESP 16; TEMP 36.1; O2SAT 96
== END 2024-07-20 12:51 | disposition home or self-care (01) ==
PROVIDERS: PCP Nurse Practitioner Family; Visit Provider Internal Medicine Gastroenterology
PROC: 0DJ08ZZ Inspection of Upper Intestinal Tract, Via Natural or Artificial Opening Endoscopic (ICD-10-PCS; CPT 43235; principal; 2024-07-20 11:40)
DX: K31.A21 Gastric intestinal metaplasia with low grade dysplasia (principal); K31.7 Polyp of stomach and duodenum; K44.9 Diaphragmatic hernia without obstruction or gangrene; K30 Functional dyspepsia; N18.9 Chronic kidney disease, unspecified; L23.1 Allergic contact dermatitis due to adhesives; M32.9 Systemic lupus erythematosus, unspecified; Z85.3 Personal history of malignant neoplasm of breast; Z79.82 Long term (current) use of aspirin; Z79.899 Other long term (current) drug therapy; Z88.8 Allergy status to other drugs, medicaments and biological substances; Z98.890 Other specified postprocedural states
CPT/HCPCS: 43251; 43236; 88305; 88313; 88342; J2003; J2405; J2704

== ENCOUNTER → 2024-07-20 09:27 | Outpatient (BNV) | payer MEDICARE, SELFPAY | PROVIDERS: PCP Nurse Practitioner Family; Visit Provider Internal Medicine Gastroenterology | DX: K31.7 Polyp of stomach and duodenum (principal) | CPT/HCPCS: 43236; 43251 ==

== ENCOUNTER 2024-08-06 12:35 | Outpatient (AMB) | payer MEDICARE, SELFPAY ==
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
[2024-08-06 13:03] VITALS: BP 149/71; PULSE 73; BMI 34.9
== END 2024-08-06 13:58 | disposition home or self-care (01) ==
LOC: HO.HGI 12:36
PROVIDERS: PCP Nurse Practitioner Family; Visit Provider Nurse Practitioner
DX: Q40.3 Congenital malformation of stomach, unspecified (principal); D12.6 Benign neoplasm of colon, unspecified; K30 Functional dyspepsia; K59.04 Chronic idiopathic constipation; K22.70 Barrett's esophagus without dysplasia; R53.83 Other fatigue
CPT/HCPCS: 99213

== ENCOUNTER 2024-08-06 12:35 | Outpatient (REF) | payer MEDICARE, SELFPAY ==
[2024-08-06 15:04] LABS: Appearance Urine Clear; Color Urine Dark Yellow; Glucose Urine UA Negative (Negative); Leukocyte Esterase Urine Moderate (2+) (Negative); Nitrite Urine Negative (Negative); PH 5.5 (5.0-9.0); UMIC TRIGGER UACC YES; Urine Blood Negative (Negative); Urine Ketones Trace mg/dL (Negative); Urine Protein Negative (Neg-Trace)
[2024-08-06 15:13] LABS: Bacteria Urine None Seen (None Seen); Hyaline Casts Urine 0-2 /LPF (0-2); RBC Urine 0-2 /HPF (0-2); Squamous Epithelial Cell Urine 0-2 /HPF (0-2); UACC Culture Trigger YES
[2024-08-06 16:56] LABS: Folate 12.5 ng/mL (> or = 4.0); Vitamin B12 497 pg/mL (200-900)
[2024-08-06 17:03] LABS: Alanine Aminotransferase 22 U/L (0-31); Albumin Level 4.2 g/dL (3.5-5.0); Alkaline Phosphatase 128 U/L (39-117); Anion Gap 14 (12-20); Aspartate Amino Transferase 28 U/L (5-31); Blood Urea Nitrogen 19 mg/dL (9-16); Calcium 10.5 mg/dL (8.4-10.2); Carbon Dioxide 24 mmol/L (22-29); Chloride 111 mmol/L (96-108); Estimated Glomerular Filt Rate > 60; Glucose Random 99 mg/dL (60-115); Sodium 144 mmol/L (135-145); TSH reflex Free T4 0.16 uIU/mL (0.32-4.0); Total Protein 6.9 g/dL (6.5-8.0); Vitamin D 25-OH Total 30.7 ng/mL (>30)
[2024-08-06 17:10] LABS: Bilirubin Total 0.5 mg/dL (0.0-1.0)
[2024-08-06 17:39] LABS: Free T4 (Free Thyroxine) 1.34 ng/dL (0.71-1.85)
[2024-08-07 05:21] LABS: Parathyroid Hormone Intact 198.7 pg/mL (8.7-77.1)
== END 2024-08-06 12:36 | disposition home or self-care (01) ==
LOC: HO.LAB 12:35
PROVIDERS: PCP Nurse Practitioner Family; Visit Provider Nurse Practitioner
DX: D12.0 Benign neoplasm of cecum (principal); K30 Functional dyspepsia; K59.04 Chronic idiopathic constipation; K22.70 Barrett's esophagus without dysplasia; R53.83 Other fatigue; Q40.3 Congenital malformation of stomach, unspecified; Z98.890 Other specified postprocedural states
CPT/HCPCS: 36415; 80053; 81001; 81003; 82306; 82607; 82746; 83970; 84439; 84443; 87086; 99212

== ENCOUNTER 2024-08-11 13:34 | Outpatient (AMB) | payer MEDICARE, SELFPAY ==
[2024-08-11 13:55] VITALS: BP 132/50; PULSE 64; BMI 35.1
--- NOTE | 2024-08-11 13:55 | MHC.OFFVIS ---
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 Pt have TKA on right knee 09/01 at [facility] with Dr Paulson. Pt started feeling fatigue and SOB approx 6 months ago. 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 Accompanied by: Self / Same As Patient Allergies adhesive Allergy (Severe, Verified 08/06/24 13:23) Hives ondansetron [From ZOFRAN ( HYDROCHLORIDE)] Allergy (Unknown, Verified 08/06/24 13:23) ANAPHYLAXIS Medication List - Last Reconciled 08/11/24 by Sixto Anaya MD albuterol sulfate 90 mcg/actuation 2 puffs inhalation Q6H PRN aspirin 81 mg PO DAILY atorvastatin 20 mg PO BEDTIME clonazepam 0.5 mg PO TID PRN 30 days cranberry conc-ascorbic acid 4,200-20 mg 20 caps PO DAILY docusate sodium (Colace) 100 mg PO DAILY esomeprazole magnesium (Nexium) 40 mg PO ONCE furosemide (Lasix) 20 mg PO DAILY gabapentin 300 mg PO BEDTIME levothyroxine 100 mcg PO DAILY [magnesium PO DAILY] metoclopramide HCl (Reglan) 5 mg PO QIDACHS sennosides (Senna Laxative) 25.8 mg (3 x 8.6 mg) PO BEDTIME trazodone 100 mg PO BEDTIME turmeric root extract 500 mg PO DAILY vibegron (Gemtesa) 75 mg PO DAILY HPI Comments Details: Thank you for referring Reema in cardiology consultation today for preoperative cardiovascular risk stratification for right knee replacement coming up in August. Patient also has exertional shortness of breath which concerning her. She also has symptoms of palpitations which have been bothering her. Patient has had increased personal stress recently but her palpitation symptoms have not worsened. She says a palpitation symptoms improved. She complains of symptoms of rapid heart rate which can last up to 2 minutes. She says symptoms get better sometimes with cough if they do not spontaneously revert back to normal rhythm. She has had 2 Holter monitor which have shown rare PACs although she says she has not had symptoms while she had been she is not willing to pursue further monitoring due to her skin reaction to the glue. She has also had an echocardiogram within the last 6 months which was normal LV ejection fraction without major valvular abnormality. She had a myocardial perfusion imaging within last 6 months which showed normal myocardial perfusion. She has been diagnose with pulmonary parenchymal disease with possible interstitial lung disease. She has no prior history of smoking but has significant exposure to secondhand smoking. She denies any lightheadedness, syncope. Although says she has symptoms of disequilibrium. She has been recently diagnose with hyperparathyroidism. She says her shortness of breath has gradually worsened and she has become more sedentary due to the knee and then because of weight gain has become more and more short of breath. Denies any orthopnea, PND, leg edema. She does have evidence of atherosclerosis by CT imaging of the abdomen and pelvis with noted atherosclerosis in the aorta as well as the iliac arteries [facility] Medical History Bilateral knee pain Postmenopausal Breast cancer Fracture of femoral neck, left Pulmonary nodule Preoperative clearance Early satiety Nausea Right shoulder pain Nausea and vomiting Pre-op examination History of breast cancer Skin lesions Screening for lipid disorders Irritable bowel syndrome with constipation Screening for colon cancer Physical exam History of sepsis CKD (chronic kidney disease) CLYDE (obstructive sleep apnea) Clostridium difficile infection Lupus Glaucoma History of kidney disease Sleep apnea Hypothyroidism Closed fracture of neck of left femur Fibromyalgia Surgical History H/O shoulder surgery Hx of tonsillectomy History of hip surgery History of esophagogastroduodenoscopy (EGD) H/O colonoscopy History of cholecystectomy Family History Father Heart attack Clogged artery (heart) COPD (chronic obstructive pulmonary disease) Mother Stroke Clogged artery (heart) Sister COPD (chronic obstructive pulmonary disease) Brother COPD (chronic obstructive pulmonary disease) Social History Household Members: None Housing: Apartment Housing Other:: longterm Patient Tobacco Use Status: Never used Tobacco e-Cigarette/Vaping Use: Never Used Second Hand Smoke Exposure: No service: No Current occupational status: retired Cognitive needs: No Hearing needs: No Vision needs: No Review of Systems Const Denies chills, Denies daytime sleepiness, Denies fatigue, Denies fever(s), Denies poor appetite, Denies snoring, Denies stops breathing during sleep, Denies weakness, Denies weight gain and Denies weight loss Eyes Denies loss of vision ENT Denies dizziness and Denies hearing loss Card Denies chest pain, Denies irregular heart rhythm, Denies claudication, Denies leg edema, Denies lightheadedness, Reports palpitations, Reports dyspnea on exertion and Denies orthopnea Resp Denies cough, Denies excessive phlegm production, Reports dyspnea on exertion, Denies snoring and Denies wheezing GI Denies abdominal pain, Denies hematochezia, Denies change in bowel habits, Denies nausea and Denies vomiting Denies urinary frequency and Denies dysuria Musc Denies arthralgias, Denies muscle weakness, Denies numbness and Denies other Skin/Breast Denies nail changes and Denies rash Neuro Denies Abnormal speech present, Denies dizziness, Denies loss of vision, Denies memory loss, Denies numbness and Denies weakness Psych Denies depression and Denies memory loss Endo Denies fatigue and Reports palpitations Anibal/Lymph Denies easy bruising Aller/Immun Denies wheezing Physical Exam Vital Signs: Last Vital Signs Pulse 64 08/11/24 13:55 BP 132/50 L 08/11/24 13:55 BMI result Body Mass Index 35.1 Const General: cooperative, comfortable, no acute distress, alert, awake and well groomed Nutritional Appearance: obese Orientation/consciousness: patient oriented x3 Limitations: no limitations HEENT Head: Yes normocephalic and Yes atraumatic Neck Neck: Yes trachea midline, Yes supple and Yes no JVD Resp Effort & Inspection: normal respiratory effort Auscultation: clear to auscultation bilaterally and diminished lung sounds Cardio Jugular venous distension: no JVD Palpation: normal PMI Rate: regular rate Rhythm: regular rhythm Heart sounds: S1 normal heart sound present, S2 normal heart sound present, no click, no gallops, no murmurs and no rubs GI Auscultation: normal bowel sounds Skin General skin exam: no rashes or lesions noted Neuro General: patient oriented x3 and no focal motor deficits Speech: No Abnormal speech present Extrem General: Yes no clubbing, cyanosis or edema Office Procedures EKG Details: EKG shows normal sinus rhythm with nonspecific T-wave changes 44158-[id number], Complete Assessment & Plan Assessment & Plan (1) Preoperative cardiovascular examination: Code(s): Z01.810 - Encounter for preprocedural cardiovascular examination Category: Medical Plan: Patient scheduled for right knee replacement in early August. She was symptoms exertional shortness of breath which appears to be more likely related to pulmonary parenchymal disease. Recent myocardial perfusion imaging and echocardiogram are reassuring. Likelihood of obstructive coronary artery disease is low. Although she does have evidence of atherosclerosis on imaging I do not think her symptoms are related to significant myocardial ischemia. At this point time she is optimized to undergo surgery with low to intermediate risk for perioperative cardiovascular morbidity mortality. Continue all medications except for aspirin in the perioperative time. (2) Dyspnea on exertion: Code(s): R06.09 - Other forms of dyspnea Category: Medical Plan: Shortness of breath on exertion with normal LV ejection fraction without major valvular abnormality and no significant pulmonary hypertension as well as normal myocardial perfusion. Unlikely to be cardiac in origin. Most likely related to underlying pulmonary parenchymal disease as well as weight gain with restrictive pulmonary defect and sedentary lifestyle. At this point time I think she would benefit from knee surgery which would improve mobility and then in his encouraged to increase activity level and gradual weight loss program. Continue to optimize underlying pulmonary treatment. (3) Palpitations: Code(s): R00.2 - Palpitations Plan: Symptoms of palpitation concerning given her sister's history of atrial fibrillation. Although Holter monitor benign and showed rare PACs. I would suggest her to have a smart phone based EKG device that will help with the diagnosis. No pharmacotherapy is been recommended. Avoidance of stimulants was discussed. Stress mitigation strategies were discussed. Will follow up in the clinic in 1 year's time, sooner p.r.n.. Thank you for allowing me to partake in his care Medications: Changed From esomeprazole magnesium (Nexium) 40 mg PO BID 60 caps 6RF Q40.3 - Congenital malformation of stomach, unspecified To esomeprazole magnesium (Nexium) 40 mg PO ONCE Q40.3 - Congenital malformation of stomach, unspecified Coding Level of Care Code New Pt Level 4 (12347) Complex EM visit Add On G2211 Diagnoses Preoperative cardiovascular examination Z01.810 Dyspnea on exertion R06.09 Palpitations R00.2 CPT Codes EKG - CPT: 00132-[id number], Complete ([id number])
== END 2024-08-11 14:32 | disposition home or self-care (01) ==
PROVIDERS: PCP Nurse Practitioner Family; Visit Provider Internal Medicine Cardiovascular Disease
DX: R00.2 Palpitations (principal); R06.09 Other forms of dyspnea; Z01.810 Encounter for preprocedural cardiovascular examination; R94.31 Abnormal electrocardiogram [ECG] [EKG]
CPT/HCPCS: 93010; 99213; G2211

== ENCOUNTER → 2024-08-11 13:34 | Outpatient (BNVA) | payer MEDICARE, SELFPAY | PROVIDERS: PCP Nurse Practitioner Family; Visit Provider Internal Medicine Cardiovascular Disease | DX: Z01.810 Encounter for preprocedural cardiovascular examination (principal); R00.2 Palpitations; R06.09 Other forms of dyspnea; Q40.3 Congenital malformation of stomach, unspecified | CPT/HCPCS: 93005; 99212 ==

== ENCOUNTER 2024-08-12 15:54 | Outpatient (AMB) | payer MEDICARE, SELFPAY ==
[2024-08-12 15:55] VITALS: BP 138/60; PULSE 83; O2SAT 96; BMI 35.7
--- NOTE | 2024-08-12 15:55 | MHC.PC.OV ---
Vital Signs 08/12/24 15:55 Height 5 ft 6 in Weight 221 lb BMI 35.7 BP 138/60 Blood Pressure Location Lt brachial Position Sitting Pulse 83 Pulse Source Pulse Oximeter Pulse Oximetry (%) 96 Oxygen Delivery Method Room Air Intake Visit Reasons: 4 mon f/u Intake Note: Pt is here today for her 4mo. f/u Allergies adhesive Allergy (Severe, Verified 08/12/24 15:57) Hives ondansetron [From ZOFRAN ( HYDROCHLORIDE)] Allergy (Unknown, Verified 08/12/24 15:57) ANAPHYLAXIS Tobacco use date assessed: 08/12/24 Fall risk assessment: 2 + Falls in past year Last assessed Fall Risk: 08/12/24 Dental Screening Dental Screen Date: 08/12/24 Did you have a dental visit in the last 12 months?: Yes Did you have a dental problem in the last 6 months where you did not have access to dental care?: No Was dental information given to patient?: Patient has dentist HPI 4 mon f/u HPI Details Pt has a hx of hyperparathyroidism and hypothyroid. Last TSH was 0.16. Will repeat TSH and order thyroid US. Pt will be seeing endo. Pt is going for a right TKA next month. She is going for pre-op labs through her surgeon. Pt had an EKG yesterday and has been cleared by cardiology. Pt is cleared for surgery from my standpoint as long as surgeon's pre-op labs are stable. Denies fever, chills, and dizziness. [facility] Medical History (Updated 08/12/24 @ 18:35 by DA Cleveland-) Pre-op examination Bilateral knee pain Postmenopausal Breast cancer Fracture of femoral neck, left Pulmonary nodule Preoperative clearance Early satiety Nausea Right shoulder pain Nausea and vomiting History of breast cancer Skin lesions Screening for lipid disorders Irritable bowel syndrome with constipation Screening for colon cancer Physical exam History of sepsis CKD (chronic kidney disease) CLYDE (obstructive sleep apnea) Clostridium difficile infection Lupus Glaucoma History of kidney disease Sleep apnea Hypothyroidism Closed fracture of neck of left femur Fibromyalgia Surgical History H/O shoulder surgery Hx of tonsillectomy History of hip surgery History of esophagogastroduodenoscopy (EGD) H/O colonoscopy History of cholecystectomy Family History Father Heart attack Clogged artery (heart) COPD (chronic obstructive pulmonary disease) Mother Stroke Clogged artery (heart) Sister COPD (chronic obstructive pulmonary disease) Brother COPD (chronic obstructive pulmonary disease) Social History Household Members: None Housing: Apartment Housing Other:: halfway Patient Tobacco Use Status: Never used Tobacco e-Cigarette/Vaping Use: Never Used Second Hand Smoke Exposure: No service: No Current occupational status: retired Cognitive needs: No Hearing needs: No Vision needs: No Questionnaire Thrive Questionnaire Date Thrive assessed: 04/22/24 I am a: Patient What is your living situation today?: I have a steady place to live Within the past 12 months, did the food you bought not last and you didn't have the money to get more?: Never true Within the past 12 months, did you worry whether your food would run out before you got money to buy more?: Never true Do you have trouble paying for medicines?: No Do you have trouble getting transportation to medical appointments?: Yes Do you have trouble paying your heating and electricity bill?: No Do you have trouble taking care of your child, family member or friend?: No Do you have trouble with day-to-day activities such as bathing, preparing meals, shopping, managing finances, etc.?: I choose not to answer this question Are you currently unemployed and looking for a job?: No Are you interested in more education?: No Please select the resources that you would like help with: None Currently or been in a relationship where the following occur: No concerns reported THRIVE Score: 1 SEEMA-7 AMB Questionnaire SEEMA-7 Date SEEMA - 7 assessed: 04/28/24 Source: Developed by Drs. David Perez, Carole Michelle, Virgil Harris and colleagues, with an educational gifty from [employer]. Review of Systems Const Reports as per HPI Physical exam (Primary Care) Vital Signs: Last Vital Signs Pulse 83 08/12/24 15:55 BP 138/60 08/12/24 15:55 Pulse Ox 96 08/12/24 15:55 Oxygen Delivery Method Room Air 08/12/24 15:55 BMI result Body Mass Index 35.7 Tobacco/Smoking Status: Tobacco use Status Tobacco use date assessed 08/12/24 08/12/24 15:58 Patient Tobacco Use Status Never used Tobacco 08/12/24 15:57 e-Cigarette/Vaping Use Never Used 08/12/24 15:57 Thrive Assessment: Date of Thrive Assessment Date Thrive assessed 04/22/24 08/12/24 15:57 Currently or been in a relationship where the following occur: No concerns reported Const General: cooperative Orientation/consciousness: patient oriented x3 Resp Effort & Inspection: normal respiratory effort Auscultation: clear to auscultation bilaterally Cardio Rate: regular rate Rhythm: regular rhythm Heart sounds: S1 normal heart sound present and S2 normal heart sound present Neuro General: patient oriented x3 Psych Appearance: grossly normal Mental Status: mental status grossly normal Speech and movement: Normal speech and movement present Affect: normal affect Attitude: cooperative Thought process: Normal thought process present Thought content: Normal thought content present Insight: Good insight present (Psych) Judgement: Good judgement present (Psych) Coding Level of Care Code Est Pt Level 3 (55216) Diagnoses Hypothyroidism E03.9 Hyperparathyroidism E21.3 Pre-op examination Z01.818 Assessment & Plan Assessment & Plan (1) Hypothyroidism: Code(s): E03.9 - Hypothyroidism, unspecified Category: Medical Plan: Repeat TSH ordered, US ordered (2) Hyperparathyroidism: Code(s): E21.3 - Hyperparathyroidism, unspecified Category: Medical Plan: Repeat TSH ordered, US ordered, following up with endo (3) Pre-op examination: Code(s): Z01.818 - Encounter for other preprocedural examination Category: Medical Plan: cleared from my standpoint Plan The patient agreed to the use of a medical device sales consultant for this encounter. Scribed for DA Rebolledo-DONAVAN by Sondra Will medical device sales consultant, on 08/12/2024 at 16:35 EST. Orders: Orders US thyroid Today E03.9 - Hypothyroidism, unspecified, E21.3 - Hyperparathyroidism, unspecified TSH reflex Free T4 Today E03.9 - Hypothyroidism, unspecified Comprehensive Met. Panel Today E03.9 - Hypothyroidism, unspecified Complete Blood Count Auto Diff Today E03.9 - Hypothyroidism, unspecified
== END 2024-08-12 17:11 | disposition home or self-care (01) ==
PROVIDERS: PCP Nurse Practitioner Family; Visit Provider Nurse Practitioner Family
DX: E03.9 Hypothyroidism, unspecified (principal); E21.3 Hyperparathyroidism, unspecified; Z01.818 Encounter for other preprocedural examination

== ENCOUNTER → 2024-08-12 15:54 | Outpatient (BNVA) | payer MEDICARE, SELFPAY | PROVIDERS: PCP Nurse Practitioner Family; Visit Provider Nurse Practitioner Family | DX: Z01.818 Encounter for other preprocedural examination (principal); E03.9 Hypothyroidism, unspecified; E21.3 Hyperparathyroidism, unspecified | CPT/HCPCS: 99212 ==

== ENCOUNTER 2024-08-14 13:57 | Outpatient (AMB) | payer MEDICARE, SELFPAY ==
--- NOTE | 2024-08-14 13:59 | MHC.OFFVIS ---
Vital Signs 08/14/24 14:00 Height 5 ft 6 in Weight 220 lb BMI 35.5 BP 138/64 Blood Pressure Location Lt brachial Position Sitting Pulse 77 Pulse Source Pulse Oximeter Pulse Oximetry (%) 96 Oxygen Delivery Method Room Air Intake Visit Reasons: Cough/CT Follow Up Allergies adhesive Allergy (Severe, Verified 08/14/24 14:03) Hives ondansetron [From ZOFRAN ( HYDROCHLORIDE)] Allergy (Unknown, Verified 08/14/24 14:03) ANAPHYLAXIS HPI HPI Cough/CT Follow Up: Details: Reema is a pleasant 73 year old female, never smoker, with underlying lupus, h/o right breast cancer s/p radiation 2008, CKD and hypothyroidism. She was initially referred for abnormal chest CT questioning ILD well as chronic cough since having COVID last year. She reports cough is now intermittent with clear to white sputum with associated post nasal drip. She attributes symptoms to likely allergies, no recent allergy testing. She also continues with dyspnea on exertion, prior cardiac workup reportedly unremarkable. Since the last visit, she was diagnosed with hyperthyroidism and has been started on lasix about a week ago. She denies any changes in dyspnea since starting lasix. Denies BLE edema or orthopnea. Today she presents to review chest CT results, unfortunately not officially read by radiology. At the last visit, she was also started on ICS, with minimal improvement in symptoms and infrequent use of albuterol MDI. PFT 04/2024: Mild restrictive ventilatory defect with bronchodilator response in small to medium airways only. Decreased expiratory reserve volume suggests extrathoracic restriction likely secondary to abdominal obesity. Combination of restrictive ventilatory defect with decreased diffusion capacity suggests underlying pulmonary parenchymal disease. DLCO 70%. [facility] Medical History (Updated 08/14/24 @ 14:23 by Lo Coe NP) Pre-op examination Bilateral knee pain Postmenopausal Breast cancer Fracture of femoral neck, left Pulmonary nodule Preoperative clearance Early satiety Nausea Right shoulder pain Nausea and vomiting History of breast cancer Skin lesions Screening for lipid disorders Irritable bowel syndrome with constipation Screening for colon cancer Physical exam History of sepsis CKD (chronic kidney disease) CLYDE (obstructive sleep apnea) Clostridium difficile infection Lupus Glaucoma History of kidney disease Sleep apnea Hypothyroidism Closed fracture of neck of left femur Fibromyalgia Surgical History H/O shoulder surgery Hx of tonsillectomy History of hip surgery History of esophagogastroduodenoscopy (EGD) H/O colonoscopy History of cholecystectomy Family History Father Heart attack Clogged artery (heart) COPD (chronic obstructive pulmonary disease) Mother Stroke Clogged artery (heart) Sister COPD (chronic obstructive pulmonary disease) Brother COPD (chronic obstructive pulmonary disease) Social History Household Members: None Housing: Apartment Housing Other:: skilled nursing Patient Tobacco Use Status: Never used Tobacco e-Cigarette/Vaping Use: Never Used Second Hand Smoke Exposure: No service: No Current occupational status: retired Cognitive needs: No Hearing needs: No Vision needs: No Review of Systems Const Denies chills, Denies excessive sweating, Denies fever(s), Denies headache(s) and Denies night sweats Eyes Denies dry eyes, Denies irritation and Denies itchy eyes ENT Reports Normal hearing present, Denies headache(s), Denies nasal congestion, Denies nasal discharge and Denies sore throat Card Denies chest pain, Denies chest pain at rest, Denies chest pain with activity, Denies claudication, Denies leg edema, Denies orthopnea and Denies paroxysmal nocturnal dyspnea Resp Denies chest congestion, Denies excessive phlegm production, Denies pain on inspiration, Denies pain with cough and Denies stridor Musc Denies myalgias Neuro Reports Normal hearing present and Denies headache(s) Endo Denies excessive sweating Anibal/Lymph Denies lymphadenopathy Aller/Immun Denies itchy eyes and Denies seasonal rhinorrhea Physical Exam Vital Signs: Last Vital Signs Pulse 77 08/14/24 14:00 BP 138/64 08/14/24 14:00 Pulse Ox 96 08/14/24 14:00 Oxygen Delivery Method Room Air 08/14/24 14:00 BMI result Body Mass Index 35.5 Const General: cooperative, healthy appearing, comfortable, no acute distress, well developed and alert Nutritional Appearance: obese Orientation/consciousness: patient oriented x3 Limitations: no limitations HEENT Head: Yes normal to inspection, Yes normocephalic and Yes atraumatic Ears: hearing grossly normal bilaterally and external ears normal Eyes General: appearance normal, both eyes and all related structures Eyelids: Yes eyelids normal Sclerae: sclerae normal EOM: EOMs intact bilaterally Neck Neck: Yes normal visual inspection and Yes no lymphadenopathy Lymphatic: no lymphadenopathy noted Chest Chest palpation & inspection: normal inspection of the chest Resp Effort & Inspection: normal respiratory effort, able to speak in complete sentences, no audible wheezes, no cough, no stridor, not tachypneic, no tripod positioning and no use of accessory muscles Auscultation: clear to auscultation bilaterally Cardio Jugular venous distension: no JVD Rate: regular rate Rhythm: regular rhythm Skin Other: warm, dry General skin exam: no rashes or lesions noted Neuro General: patient oriented x3 Cranial nerves: Yes Normal hearing present Cognition (Neuro): normal cognition Gait exam (Neuro): Normal gait present Extrem General: Yes normal to inspection, Yes capillary refill normal, Yes no clubbing, cyanosis or edema and Yes no pedal edema Psych Appearance: grossly normal and well kempt Speech and movement: Normal speech and movement present and Clear speech present Affect: normal affect Attitude: cooperative Thought process: Normal thought process present Thought content: Normal thought content present Insight: Good insight present (Psych) Judgement: Good judgement present (Psych) Assessment & Plan Assessment & Plan (1) Chronic cough: Code(s): R05.3 - Chronic cough Category: Medical (2) Bronchiectasis: Code(s): J47.9 - Bronchiectasis, uncomplicated Category: Medical (3) Dyspnea on exertion: Code(s): R06.09 - Other forms of dyspnea Category: Medical Plan Will switch ICS to Breo. Will also send for RAST to assess for an allergic component. Will call patient with results of chest CT once final read available. Prior chest CT revealed subpleural reticular changes in the lower lobes and right middle lobe, suggestive of early ILD, however patient s/p radiation for breast cancer in 2009 on the right. All questions were answered and patient is in agreement of plan. Will follow up in 6- 8 weeks or sooner if needed. Orders: Orders Resp Allergy Profile Region I 08/14/24 Z91.09 - Other allergy status, other than to drugs and biological substances Immunoglobulin E 08/14/24 Z91.09 - Other allergy status, other than to drugs and biological substances Medications: New fluticasone furoate-vilanterol 100-25 mcg/dose (Breo Ellipta) 1 inh inhalation DAILY 60 ea 3RF Coding Level of Care Code Est Pt Level 4 (34233) Diagnoses Chronic cough R05.3 Bronchiectasis J47.9 Dyspnea on exertion R06.09
[2024-08-14 14:00] VITALS: BP 138/64; PULSE 77; O2SAT 96; BMI 35.5
== END 2024-08-14 15:08 | disposition home or self-care (01) ==
PROVIDERS: PCP Nurse Practitioner Family; Visit Provider Nurse Practitioner Family
DX: R05.3 Chronic cough (principal); J47.9 Bronchiectasis, uncomplicated; R06.09 Other forms of dyspnea
CPT/HCPCS: 99214

== ENCOUNTER 2024-08-14 14:45 | Outpatient (REF) | payer MEDICARE, SELFPAY ==
[2024-08-14 17:52] LABS: MANUAL DIFF FLAG NO
[2024-08-14 18:00] LABS: Basophils Percent Auto 0.6 % (0-2); Eosinophils Absolute Auto 0.1 X10*3/uL (0.0-0.4); Eosinophils Percent Auto 2.2 % (0-4); Hematocrit 39.5 % (37.0-47.0); Hemoglobin 12.7 g/dl (12.0-16.0); Imm Gran Abs Auto 0.03 X10*3/uL (0.00-0.03); Imm Gran Pct Auto 0.5 % (0.0-0.4); Lymphocytes Absolute Auto 1.5 X10*3/uL (1.2-4.9); Lymphocytes Percent Auto 23.2 % (20-40); Mean Corpuscular HGB Conc 32.2 g/dl (31.0-35.0); Mean Corpuscular Hemoglobin 27.1 pg (27.0-33.0); Mean Corpuscular Volume 84.4 fL (80.0-98.0); Mean Platelet Volume 11.2 fL (9.4-12.3); Monocytes Absolute Auto 0.6 X10*3/uL (0.1-1.2); Monocytes Percent Auto 9.2 % (2-11); Neutrophils Absolute Auto 4.1 x10*3/uL (2.0-8.3); Neutrophils Percent Auto 64.3 % (45-73); Platelet Count 194 X10*3/uL (160-400); Red Blood Count 4.68 X10*6/uL (4.20-5.50); Red Cell Distribution Width 14.3 % (11.0-16.0); White Blood Count 6.4 X10*3/uL (4.8-10.8)
[2024-08-14 18:25] LABS: Alanine Aminotransferase 17 U/L (0-31); Albumin Level 3.8 g/dL (3.5-5.0); Alkaline Phosphatase 119 U/L (39-117); Anion Gap 8 (12-20); Aspartate Amino Transferase 24 U/L (5-31); Bilirubin Total 0.3 mg/dL (0.0-1.0); Blood Urea Nitrogen 19 mg/dL (9-16); Carbon Dioxide 27 mmol/L (22-29); Chloride 108 mmol/L (96-108); Estimated Glomerular Filt Rate 58; Glucose Random 122 mg/dL (60-115); Potassium 4.2 mmol/L (3.3-5.1); Sodium 139 mmol/L (135-145); Total Protein 6.2 g/dL (6.5-8.0)
[2024-08-14 18:35] LABS: TSH reflex Free T4 0.13 uIU/mL (0.32-4.0)
[2024-08-14 19:28] LABS: Free T4 (Free Thyroxine) 1.21 ng/dL (0.71-1.85)
[2024-08-17 22:44] LABS: Class Alternaria alternata 0; Class Aspergillus fumigatus 0; Class Bermuda Grass 0; Class Birch 0; Class Cat Dander 0; Class Cladosporium herbarum 0; Class Cockroach 0; Class Common Ragweed 0; Class Cottonwood 0; Class Derm. pterony 0; Class Dermatophagoides farinae 0; Class Dog Dander 0; Class Elm 0; Class Maple Box Elder 0; Class Mountain Cedar 0; Class Mouse Urine Protein 0; Class Mugwort 0; Class Oak 0; Class Penicillium crysogenum 0; Class Rough Pigweed 0; Class Sheep Sorrel 0; Class Sycamore 0; Class Timothy Grass 0; Class Walnut Tree 0; Class White Ash 0; Class White Mulberry 0; D001 IgE D pteronyssinus <0.10 kU/L; D002 - IgE D farinae <0.10 kU/L; E001 - IgE Cat Dander <0.10 kU/L; E005 - IgE Dog Dander <0.10 kU/L; E072-IgE Mouse Urine <0.10 kU/L; G002 IgE Bermuda Grass <0.10 kU/L; G006 - IgE Timothy Grass <0.10 kU/L; I006-IgE Cockroach, German <0.10 kU/L; Immunoglobulin E <2 kU/L (<OR=114); M001 IgE Penicillium chrysogen <0.10 kU/L; M002 - IgE Cladosporium herbar <0.10 kU/L; M003 - IgE Aspergillus fumigat <0.10 kU/L; M006 - IgE Alternaria alternat <0.10 kU/L; T001 IgE Maple/Box Elder <0.10 kU/L; T003 IgE Common Silver Birch <0.10 kU/L; T006 - IgE Cedar, Mountain <0.10 kU/L; T007 - IgE Oak, White <0.10 kU/L; T008 IgE Elm, American <0.10 kU/L; T010 - IgE Walnut <0.10 kU/L; T011 - IgE Maple Leaf Sycamore <0.10 kU/L; T014 - IgE Cottonwood <0.10 kU/L; T015 - IgE Ash, White <0.10 kU/L; T070 - IgE White Mulberry <0.10 kU/L; W001 - IgE Ragweed, Short <0.10 kU/L; W006 - IgE Mugwort <0.10 kU/L; W014 IgE Pigweed, Common <0.10 kU/L; W018 IgE Sheep Sorrel <0.10 kU/L
[2024-08-18 21:24] LABS: Immunoglobulin E <2 kU/L (<OR=114)
== END 2024-08-14 14:46 | disposition home or self-care (01) ==
LOC: HO.WFDLDS 14:45
PROVIDERS: Referring Provider Nurse Practitioner Family; Visit Provider Nurse Practitioner Family
DX: E03.9 Hypothyroidism, unspecified (principal); Z91.09 Other allergy status, other than to drugs and biological substances; R05.3 Chronic cough; R06.09 Other forms of dyspnea; J47.9 Bronchiectasis, uncomplicated
CPT/HCPCS: 36415; 80053; 82785; 84439; 84443; 85025; 86003; 99212

== ENCOUNTER 2024-08-20 14:24 | Outpatient (REF) | payer MEDICARE, SELFPAY | END 2024-08-20 14:25 | disposition home or self-care (01) | LOC: HO.HMGCX 14:24 | PROVIDERS: PCP Nurse Practitioner Family; Visit Provider Nurse Practitioner Family | DX: E03.9 Hypothyroidism, unspecified (principal); E21.3 Hyperparathyroidism, unspecified | CPT/HCPCS: 76536 ==

== ENCOUNTER 2024-08-24 14:00 | Outpatient (RCR) | payer MEDICARE, SELFPAY | END 2024-09-02 09:45 | disposition home or self-care (01) | LOC: HO.PTCHIC 14:00 | PROVIDERS: PCP Nurse Practitioner Family; Visit Provider Orthopaedic Surgery | DX: M25.561 Pain in right knee (principal) | CPT/HCPCS: 97110; 97161 ==

== ENCOUNTER 2024-08-25 10:51 | Outpatient (AMB) | payer MEDICARE, SELFPAY ==
[2024-08-25 10:54] VITALS: BP 160/76; BMI 35.1
--- NOTE | 2024-08-25 10:54 | MHC.OFFVIS ---
Vital Signs 08/25/24 10:54 08/25/24 11:59 Height 5 ft 6 in Weight 217 lb 9.54 oz BMI 35.1 BP 160/76 H 155/75 H Blood Pressure Location Lt brachial Lt brachial Position Sitting Intake Visit Reasons: Hyperparathyroidism-confirmed Intake Note: New patient present today for Hyperparathyroidism office visit. 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 Accompanied by: Self / Same As Patient Allergies adhesive Allergy (Severe, Verified 08/25/24 10:58) Hives ondansetron [From ZOFRAN ( HYDROCHLORIDE)] Allergy (Unknown, Verified 08/25/24 10:58) ANAPHYLAXIS Medication List - Last Reconciled 08/25/24 by Melvi Mike MD albuterol sulfate 90 mcg/actuation 90 mcg inhalation DAILY aspirin 81 mg PO DAILY atorvastatin 20 mg PO BEDTIME clonazepam 0.5 mg PO TID PRN 30 days cranberry conc-ascorbic acid 4,200-20 mg 20 caps PO DAILY docusate sodium (Colace) 100 mg PO DAILY esomeprazole magnesium (Nexium) 40 mg PO ONCE fluticasone furoate-vilanterol 100-25 mcg/dose (Breo Ellipta) 1 inh inhalation DAILY furosemide (Lasix) 20 mg PO DAILY gabapentin 300 mg PO BEDTIME levothyroxine 88 mcg PO DAILY [magnesium 50 mg PO DAILY] sennosides (Senna Laxative) 25.8 mg (3 x 8.6 mg) PO BEDTIME trazodone 100 mg PO BEDTIME turmeric root extract 500 mg PO DAILY vibegron (Gemtesa) 75 mg PO DAILY HPI Comments Details: 74-year-old female here today for initial evaluation of hyperparathyroidism. She reports history of right breast cancer in 2008, s/p lumpectomy, radiation and chemotherapy. Now stable from that standpoint. Hyperparathyroidism Labs from 08/06/2024 showed elevated calcium of 10.5, with albumin level at 4.2, corrected calcium would be 10.3. PTH elevated at 198.7, vitamin-D of 30.7. EGFR greater than 60. Labs repeated 08/14/2024 showed calcium of 10.0 with albumin is 3.8, corrected calcium 10.2. Chart review shows she has had normal calcium levels until September 2023, borderline high calcium levels this year in 2023. She reports many years ago she was evaluated by an [employer] line about 20 years ago and was told to keep an eye on her parathyroid hormone level. CT abdomen pelvis 04/18/2024: No kidney stones Patient reports kidney stones sometime in 2008 , went into sepsis, Proteus bacteremia, s/p procedure to remove kidney stone. Fractured left hip 2020 while doing splits. No other fractures. No recent bone density. She is scheduled for one in Oct 2024 Bone density last done in [facility] about 4 years ago ? 2019 I do not have these records yet Has GERD , IBS with constipation so does report intermittent abd pain , constipation No polyuria Reports brain fog / memory issues No family history of kidney stones or calcium problems. Not on HCTZ Patient reports has been on lasix 20 mg daily since sometime around 08/07/24 after GI presribed it for high calcium . Will need to confirm . Discontinued vitamin D 50801 units montly dose 3 months ago . Not on any vitamin D. Milk: none, cheese: 3-4 times a week , yogurt: none calcium : she was taking supplements 2 pills a day , 600 mg in each pill , [employer] brand Hypothyroidism managed by PCP , started levothyroxine in mid 30s, Most recently Labs from 08/14/2024 showed TSH of 0.13, with normal free T4 1.21, 08/06/2024: TSH noted to be 0.16. With normal free T4 1.34. Dose lowered to 88 mcg daily 08/25/24 , she always takes it at night, switched adelaida 100 mcg daily, says before that it was 112 mcg daily a couple months ago Ultrasound thyroid done 08/20/2024, I reviewed the images myself, report not finalized yet but I do not see any nodules on the images. She did have a CT chest 07/09/2024, consistent with recent contrast exposure. No viral illness recently Gained 15 to 20 lbs since the summer due to knee acting up, scheduled for surgery 09/01/24 Physical exam General: sitting comfortably in no acute distress HEENT: normocephalic/atraumatic, Neck: supple, symmetrical Cardiac: normal heart sounds Pulm: normal breath sounds B/L, no added breath sounds Abd: not distended, no tenderness Extremities: no edema, no signs of myxedema Neuro: AAO x3, Speech: normal, no facial droop, moving all 4 extremities Laboratory Tests 05/31/23 12/18/23 02/06/24 11:14 15:05 12:55 TSH 3.16 0.04 L 1.68 Free T4 1.39 Laboratory Tests 02/13/23 02/14/23 02/15/23 23:23 03:38 06:12 Creatinine Estim Creat Clear Calc 61.3 Estimated GFR > 60 Calcium 9.0 8.7 9.2 Albumin 3.3 L 3.3 L 25-OH Vitamin D Total TSH Free T4 PTH Intact 02/16/23 05/31/23 08/02/23 05:05 11:14 13:08 Creatinine Estim Creat Clear Calc 55.7 Estimated GFR 54 Calcium 9.0 9.8 D 10.0 Albumin 3.5 3.8 25-OH Vitamin D Total 31.5 TSH Free T4 PTH Intact 10/18/23 12/18/23 02/06/24 11:50 15:05 12:55 Creatinine Estim Creat Clear Calc Estimated GFR 55 > 60 Calcium 9.8 10.0 10.1 Albumin 3.9 3.8 25-OH Vitamin D Total TSH Free T4 PTH Intact 02/25/24 03/23/24 08/06/24 15:15 13:54 14:35 Creatinine 0.84 Estim Creat Clear Calc Estimated GFR > 60 Calcium 9.8 9.8 10.5 H D Albumin 3.8 3.8 4.2 25-OH Vitamin D Total 30.7 TSH 0.16 L Free T4 1.34 PTH Intact 198.7 H 08/14/24 14:47 Creatinine 0.94 Estim Creat Clear Calc Estimated GFR 58 Calcium 10.0 Albumin 3.8 25-OH Vitamin D Total TSH 0.13 L Free T4 1.[address] ABDOMEN AND PELVIS WITH CONTRAST March 2024 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 COMPARISON: CT abdomen and pelvis 01/09/2011. CT chest 01/24/2024. TECHNIQUE: Multidetector volumetric images were obtained from the superior aspect of the liver through the pubic symphysis following administration 85 mL of Omnipaque 350 intravenous contrast. Sagittal and coronal reformatted images were obtained on the technologist's workstation. Oral Contrast: No. This CT examination was performed using dose optimization techniques as appropriate, variously including the following: *Automated exposure control. *Adjustment of mA and/or kV according to patient size (this includes techniques or standardized protocols for targeted exams where dose is matched to indication/reason for exam; i.e. extremities or head). *Use of iterative reconstruction technique. DLP: 724 mGy-cm FINDINGS: LUNG BASES: The visualized lung bases are unremarkable. LIVER, GALLBLADDER, AND BILIARY TREE: The liver is mildly enlarged at 17.5 cm in cephalocaudad dimension. No focal hepatic lesion or biliary ductal dilatation is present. Status post cholecystectomy. PANCREAS: Unremarkable. SPLEEN: Spleen is of normal size. Multiple splenic hypodensities are seen, some measuring near water density with some a tiny bit higher. Multiple splenic masses were also present on the 2011 CT abdomen and pelvis, 13 years ago. Punctate splenic calcification is seen. ADRENAL GLANDS: Unremarkable. KIDNEYS AND URETERS: The right kidney appears normal aside from some minimal scarring. The left kidney is smaller than the right with moderate scarring. No renal masses. No pelvocaliectasis. BLADDER: Unremarkable. GASTROINTESTINAL TRACT: The small and large bowel are unremarkable. The appendix is unremarkable. ABDOMINAL WALL: No significant hernia is appreciated. LYMPH NODES: No retroperitoneal lymphadenopathy. VASCULAR: Calcific atherosclerotic changes are present in the aorta and iliac vessels. There is no evidence of an abdominal aortic aneurysm. PELVIC VISCERA: Unremarkable. OSSEOUS STRUCTURES: Mild degenerative changes in the spine. Three intramedullary screws are present through the left femoral neck. CT/CT abdomen pelvis w IV con IMPRESSION: 1. Multiple splenic hypodensities are present, some measuring near water density with some a tiny bit higher. Splenic masses are almost always benign. These have been present for over 13 years and should require no follow-up. 2. Incidental note made of mild hepatomegaly, cholecystectomy, bilateral renal scarring, left greater than right and degenerative changes in the spine. Fleischner guidelines were followed. [facility] Medical History (Updated 08/18/24 @ 13:37 by Silvina Islas MD) Pre-op examination Bilateral knee pain Postmenopausal Breast cancer Fracture of femoral neck, left Pulmonary nodule Preoperative clearance Early satiety Nausea Right shoulder pain Nausea and vomiting History of breast cancer Skin lesions Screening for lipid disorders Irritable bowel syndrome with constipation Screening for colon cancer Physical exam History of sepsis CKD (chronic kidney disease) CLYDE (obstructive sleep apnea) Clostridium difficile infection Lupus Glaucoma History of kidney disease Sleep apnea Hypothyroidism Closed fracture of neck of left femur Fibromyalgia Surgical History H/O shoulder surgery Hx of tonsillectomy History of hip surgery History of esophagogastroduodenoscopy (EGD) H/O colonoscopy History of cholecystectomy Family History Father Heart attack Clogged artery (heart) COPD (chronic obstructive pulmonary disease) Mother Stroke Clogged artery (heart) Sister COPD (chronic obstructive pulmonary disease) Brother COPD (chronic obstructive pulmonary disease) Social History Household Members: None Housing: Apartment Housing Other:: fpc Patient Tobacco Use Status: Never used Tobacco e-Cigarette/Vaping Use: Never Used Second Hand Smoke Exposure: No service: No Current occupational status: retired Gender identity: Female Cognitive needs: No Hearing needs: No Vision needs: No Physical Exam Vital Signs: Last Vital Signs BP 160/76 H 08/25/24 10:54 BMI result Body Mass Index 35.1 Assessment & Plan Assessment & Plan (1) Hyperparathyroidism: Code(s): E21.3 - Hyperparathyroidism, unspecified Category: Medical Plan: 74-year-old female coming in today for initial evaluation of hyperparathyroidism. Patient reports remote history of elevated PTH levels monitored by an [employer] production line some 20 years ago.Labs from 08/06/2024 showed elevated calcium of 10.5, with albumin level at 4.2, corrected calcium would be 10.3. PTH elevated at 198.7, vitamin-D of 30.7. EGFR greater than 60. Labs repeated 08/14/2024 showed calcium of 10.0 with albumin is 3.8, corrected calcium 10.2. Chart review shows she has had normal calcium levels until September 2023, borderline high calcium levels this year in 2023. Most likely differential is primary hyperparathyroidism. Vitamin-D level is normal, kidney function has been around normal ruling out secondary hyperparathyroidism especially given her calcium levels have been borderline high. Other differentials could include FH FH, especially given she is reporting longstanding history of PTH elevation. I will obtain 24 hour urine calcium levels. She is also on calcium supplements 1200 mg daily, I have asked her to stop these for now intake 2-3 servings of calcium rich foods daily to incorporate normal amounts of calcium in diet instead of supplements. She used to be on vitamin-D 73658 units monthly up until 3 months ago which was stopped. I have asked her to start taking 1000 units of vitamin-D daily. She has a history of kidney stones in the past, though recent CT abdomen in March 2024 did not show kidney stones. She has had a hip fracture in 2020, which is a fragility fracture giving her diagnosis of osteoporosis. She is scheduled to get a bone density scan in October 2024. We will also obtain her last bone density records done 4 years ago at [facility]. Given that she has osteoporosis based on her history of fragility fracture, and sometimes her EGFR has dipped below 60, she could meet treatment criteria for surgery. For now we will further evaluate. She was also started on Lasix 20 mg daily on 08/07/2024 by a GI provider for concerns of high calcium. Her calcium is only borderline elevated and she does not have any significant symptoms of hypercalcemia I have asked her to stop this for now. She is having knee surgery next week, I have told her it is okay for her to recuperate from her knee surgery and then obtain the blood work and urine test that I have ordered for her. Plan: -Lasix 20 mg daily prescribed for elevated calcium levels -start vitamin-D 1000 units daily -maintain good hydration -ordered 24 hour urine calcium, creatinine and blood work to be done the same day -bone density of both axial and appendicular skeleton ordered -obtain records of prior bone density done in 2019 at [facility] -follow up in 12 weeks to discuss results -stop calcium supplements -start incorporating 2-3 servings of calcium rich foods in diet Plan I spent 45 minutes in reviewing the record, seeing the patient and documenting in the medical record. Orders: Orders XR DEXA appendicular skeleton Today E21.3 - Hyperparathyroidism, unspecified Calcium, Ionized 6 Weeks E21.3 - Hyperparathyroidism, unspecified Parathyroid Hormone Intact 6 Weeks E21.3 - Hyperparathyroidism, unspecified Calcium, 24 Hr Ur 6 Weeks E21.3 - Hyperparathyroidism, unspecified Vitamin D 25-OH Total 6 Weeks E21.3 - Hyperparathyroidism, unspecified XR DEXA axial skeleton 08/07/24 E21.3 - Hyperparathyroidism, unspecified Albumin Level 6 Weeks E21.3 - Hyperparathyroidism, unspecified Calcium 6 Weeks E21.3 - Hyperparathyroidism, unspecified Phosphorus 6 Weeks E21.3 - Hyperparathyroidism, unspecified Magnesium 6 Weeks E21.3 - Hyperparathyroidism, unspecified Creatinine, 24 Hr Group 6 Weeks E21.3 - Hyperparathyroidism, unspecified Medications: New cholecalciferol (vitamin D3) 25 mcg PO DAILY 30 caps 6RF Discontinued furosemide (Lasix) Discontinued Reason: Patient Completed Course 20 mg PO DAILY 30 tabs 3RF E21.3 - Hyperparathyroidism, unspecified Patient Instructions: STOP Lasix Start vitamin D 1000 units daily Take 2-3 servings of calcium rich foods daily such as cottage cheese, string cheese , any type of fortified milk, yogurt, green leafy vegetable, a handful of almonds STOP calcium supplements Do 24 hr urine collection Same day give blood as you hand in the urine 24 hr urine collection instructions You have been asked to collect your urine for 24 hours to assess for calcium excretion. You must choose a 24 hour period of time when you will be home. The morning of the first day, DISCARD the FIRST morning void and then note the time. You will collect every single void from then on for 24 hours. For example, if you wake up at 6am and urinate, flush down that void. You will then collect every drop of urine all day and all night through 6am the following day. You will urinate one last time at 6am for the collection. The jug of urine must be kept in the refrigerator until you bring it to the lab.You have been asked to collect your urine for 24 hours to assess for calcium excretion. You must choose a 24 hour period of time when you will be home. The morning of the first day, DISCARD the FIRST morning void and then note the time. You will collect every single void from then on for 24 hours. For example, if you wake up at 6am and urinate, flush down that void. You will then collect every drop of urine all day and all night through 6am the following day. You will urinate one last time at 6am for the collection. The jug of urine must be kept in the refrigerator until you bring it to the lab. Do bone density scans, make sure they do the wrist Maintain good hydration Follow up in 12 weeks to discuss results Coding Level of Care Code New Pt Level 4 (29293) Diagnoses Hyperparathyroidism E21.3 Time Spent (min) 45
[2024-08-25 11:59] VITALS: BP 155/75
== END 2024-08-25 12:04 | disposition home or self-care (01) ==
PROVIDERS: PCP Nurse Practitioner Family; Visit Provider Student in an Organized Health Care Education/Training Program
DX: E21.3 Hyperparathyroidism, unspecified (principal)
CPT/HCPCS: 99204

== ENCOUNTER → 2024-08-25 10:51 | Outpatient (BNVA) | payer MEDICARE, SELFPAY | PROVIDERS: PCP Nurse Practitioner Family; Visit Provider Student in an Organized Health Care Education/Training Program | DX: E21.3 Hyperparathyroidism, unspecified (principal) | CPT/HCPCS: 99202 ==

== ENCOUNTER 2024-09-21 12:53 | Outpatient (AMB) | payer MEDICARE, SELFPAY ==
--- NOTE | 2024-09-21 12:53 | A.OFFPC_ITS ---
Vital Signs 09/21/24 13:00 Height 5 ft 6 in Weight 220 lb BMI 35.5 BP 130/74 Blood Pressure Location Rt brachial Position Sitting Pulse 62 Pulse Source Pulse Oximeter Pulse Oximetry (%) 98 Intake Visit Reasons: d/c from [facility] - s/p hip/knee replacement Allergies adhesive Allergy (Severe, Verified 09/21/24 13:24) Hives ondansetron [From ZOFRAN ( HYDROCHLORIDE)] Allergy (Unknown, Verified 09/21/24 13:24) ANAPHYLAXIS Medication List - Last Reconciled 09/21/24 by Tushar Arroyo, [facility] albuterol sulfate 90 mcg/actuation 90 mcg inhalation DAILY aspirin 81 mg PO DAILY atorvastatin 20 mg PO BEDTIME cholecalciferol (vitamin D3) 25 mcg PO DAILY clonazepam 0.5 mg PO TID PRN 30 days cranberry conc-ascorbic acid 4,200-20 mg 20 caps PO DAILY docusate sodium (Colace) 100 mg PO DAILY esomeprazole magnesium (Nexium) 40 mg PO ONCE fluticasone furoate-vilanterol 100-25 mcg/dose (Breo Ellipta) 1 inh inhalation DAILY gabapentin 300 mg PO BEDTIME 30 days levothyroxine 88 mcg PO DAILY [magnesium 50 mg PO DAILY] sennosides (Senna Laxative) 25.8 mg (3 x 8.6 mg) PO BEDTIME trazodone 100 mg PO BEDTIME turmeric root extract 500 mg PO DAILY vibegron (Gemtesa) 75 mg PO DAILY Tobacco use date assessed: 08/12/24 Fall risk assessment: No Falls in past year Last assessed Fall Risk: 09/21/24 Dental Screening Dental Screen Date: 08/12/24 HPI d/c from [facility] - s/p hip/knee replacement HPI Details Chief Complaint The patient presents with swelling of the right knee and associated discomfort. History of Present Illness The patient is a 74-year-old female presenting with swelling and discomfort following a right total knee arthroplasty performed at the beginning of this month. She reports swelling involving her right knee and the entire right lower extremity. The patient denies fever, chills, or any active drainage from the surgical incision site, which is reported to be well approximated. Palpable dorsalis pedis pulse is noted, but difficult to find due to the swelling. The swelling has limited her knee flexion to 90 degrees. The patient mentions experiencing numbness, primarily in the anterior lateral region of her right calf. This numbness is an issue she was informed might take some time to resolve. Additionally, she reports difficulties with sleep, compounded by ongoing restless leg syndrome. Gabapentin at a dose of 300 mg three times a day is taken currently. Adjustments for nighttime administration were discussed. Social History - Not discussed in detail. Health Maintenance - Not specifically addressed. Review of Systems - Musculoskeletal: Reports swelling of t he right knee and right lower extremity. - Neurological: Reports numbness in the anterior lateral right calf region. - Sleep: Reports disturbance and inadequ ate sleep. Physical Exam General: Cooperative, healthy appearing, somewhat sad spirits, comfortable, no acute distress and well developed Orientation: Patient oriented x3 Limitations: Swelling to right foot and right knee making it difficult for her to do even 90-degree flexion Head: Normal to inspection Ears: Hearing grossly normal bilaterally Nose: Normal external nose present Face and sinus: Normal facial exam Eyes: Appearance normal, both eyes and all related structures Neck: Normal visual inspection and Yes full ROM Respiratory: Normal respiratory effort and able to speak in complete sentences. Clear to auscultation bilaterally Cardiovascular: Regular rate and rhythm. Normal S1 and S2 GI: Normal to inspection. Soft to palpation and nontender Skin: No rashes or lesions noted, incision healing an well approximated Neuro: Patient oriented x3, reports numbness in right lateral calf region, anterior lateral aspect of right leg Extremities: Swelling throughout right knee and right lower extremity, dorsalis pedis pulse present but difficult to find Results - Not specifically discussed. Plan - Start physical therapy, scheduled for Saturday, to improve knee range of motion and manage swelling. - Continue gabapentin for restless leg s yndrome, with adjustment to 300 mg in the morning and afternoon, and 600 mg at bedtime. - Encourage the patient to maintain mobi lity using her walker. Patient was informed and verbally consented to the use of an ambient scribe for clinic note documentation during this visit. Discussion Notes I encouraged the patient to maintain a positive outlook as postoperative swelling may take time to resolve. It was clarified that the numbness in the right lateral calf might also take a while to improve. We discussed restructuring gabapentin dosing to enhance nighttime relief and ideally improve sleep quality. I highlighted the importance of physical therapy in rehabilitating post-surgery and managing swelling. The patient was advised to continue using her walker to support mobility. Patient Instructions - Attend scheduled physical therapy sess ions to aid recovery. - Adjust gabapentin dosage as discussed: 300 mg in the morning and afternoon, and 600 mg at night. - Use a walker as necessary to aid with mobility. - Monitor for any signs of infection at the surgical site, such as fever, significant increase in swelling or drainage, and seek medical attention if they occur. [facility] Medical History Pre-op examination Bilateral knee pain Postmenopausal Breast cancer Fracture of femoral neck, left Pulmonary nodule Preoperative clearance Early satiety Nausea Right shoulder pain Nausea and vomiting History of breast cancer Skin lesions Screening for lipid disorders Irritable bowel syndrome with constipation Screening for colon cancer Physical exam History of sepsis CKD (chronic kidney disease) CLYDE (obstructive sleep apnea) Clostridium difficile infection Lupus Glaucoma History of kidney disease Sleep apnea Hypothyroidism Closed fracture of neck of left femur Fibromyalgia Surgical History History of total right knee replacement H/O shoulder surgery Hx of tonsillectomy History of hip surgery History of esophagogastroduodenoscopy (EGD) H/O colonoscopy History of cholecystectomy Family History Father Heart attack Clogged artery (heart) COPD (chronic obstructive pulmonary disease) Mother Stroke Clogged artery (heart) Sister COPD (chronic obstructive pulmonary disease) Brother COPD (chronic obstructive pulmonary disease) Social History Household Members: None Housing: Apartment Housing Other:: long term Patient Tobacco Use Status: Never used Tobacco e-Cigarette/Vaping Use: Never Used Second Hand Smoke Exposure: No service: No Current occupational status: retired Gender identity: Female Cognitive needs: No Hearing needs: No Vision needs: No Questionnaire Thrive Questionnaire Date Thrive assessed: 04/22/24 SEEMA-7 AMB Questionnaire SEEMA-7 Date SEEMA - 7 assessed: 04/28/24 Source: Developed by Drs. David Perez, Carole Michelle, Virgil Harris and colleagues, with an educational gifty from [employer]. Physical exam (Primary Care) Vital Signs: Last Vital Signs Pulse 62 09/21/24 13:00 BP 130/74 09/21/24 13:00 Pulse Ox 98 09/21/24 13:00 BMI result Body Mass Index 35.5 Tobacco/Smoking Status: Tobacco use Status Tobacco use date assessed 08/12/24 09/21/24 12:55 Patient Tobacco Use Status Never used Tobacco 09/21/24 12:55 e-Cigarette/Vaping Use Never Used 09/21/24 12:55 Thrive Assessment: Date of Thrive Assessment Date Thrive assessed 04/22/24 09/21/24 12:55 Coding Level of Care Code Est Pt Level 3 (80975) Diagnoses History of total right knee replacement (TKR) Z96.651 Swelling of right knee M25.461 Assessment & Plan Assessment & Plan (1) History of total right knee replacement (TKR): Code(s): Z96.651 - Presence of right artificial knee joint Category: Medical (2) Swelling of right knee: Code(s): M25.461 - Effusion, right knee Category: Medical Plan . Medications: Changed From gabapentin 300 mg PO BEDTIME 90 caps 0RF To gabapentin 1 tab twice a day (morning and evening, 2 tabs at bedtime 300 mg PO BEDTIME 30 days 120 caps 0RF
--- OUTSIDE RECORDS SUMMARY | 2024-09-21 12:55 | XMS_ITS | Continuity of Care Document ---
Author Organization [place] - [facility], [facility] 1st Floor Address [address] [place] [address] Care Team Providers Care Guard Entrance Registrar Name Role Phone QUETA CAZARES Primary Care Provider [phone] Assessment Encounter Date Assessment Date Assessment LastModified by Organization Details LastModified Time 09/15/2024 09/15/2024 I am seeing the patient today under the supervision of who was available but who did not see the patient. HISTORY OF PRESENT ILLNESS The patient presents today for a follow-up, now two weeks status post Right total knee arthroplasty. Happy with the results. No significant complaints of pain. Doing well with P.T. ROM with therapy is 0-90 degrees. PAST MEDICAL/SURGICAL HISTORY Reviewed today, otherwise unchanged per intake sheet. REVIEW OF SYSTEMS Systemic: No fever and no chills. Cardiovascular: No chest pain or discomfort. Pulmonary: No dyspnea. PHYSICAL FINDINGS General Appearance: Well developed. ?? In no acute distress. Musculoskeletal System: Lower Leg: General/bilatera l: ?? Calves of both lower legs were not tender on palpation. Neurological: Oriented to time, place, and person. Gait And Stance: An operative sided antalgic gait was observed with assistive device. Psychiatric: Mood was appropriate to the affect. ROM is as above degrees. Moderate effusion noted Stable to varus/valgus stress. Extensor mechanism is intact. Normal sensation bilateral lower extremities Contralateral side shows no warmth, erythema, soft tissue swelling or effusion. TESTS X-rays ordered, obtained and reviewed at [facility] today, three views, reveals maintained alignment of the prosthetic components, no fractures or dislocations, excellent interface, patella tracking centrally. ASSESSMENT Progressing nicely two weeks status post Right total knee arthroplasty. PLAN The patient is progressing nicely and will continue total knee precautions. Continue to work on range of motion and strengthening exercises. Follow-up in two weeks for re-evaluation, sooner if there is any complications. [email or web address] Not available 09/15/2024 17:01:13 Plan of Treatment Reminders Order Date Submit Date Provider Last Modified By Organization Details Last Modified Time Details Appointments POST OP 15 2024 03:15P M Jose Angel Tyson PA-C Not available Not available Not available RECHECK 10 2024 03:30P M Daniel Paulson MD Not available Not available Not available Lab None recorded. Referral physical therapist referral - rom, strengthe miguel angel. 2023 024 [email or web address] [facility], [address] [place] [address] , [place], [address], 09/21/2024 08:34:28 Procedures None recorded. Surgeries None recorded. Imaging XR, knee, 3 view - room 120 3V R TKR 2023 024 [email or web address] [facility], [address], [address], [place], [address], 09/21/2024 08:34:28 Medication Orders None recorded. Patient TargetsNo targets recorded. Patient InstructionsNo instructions recorded. Reason for Referral Physical Therapist Referral for History of total knee arthroplasty rom, strengthening. Referring Physician: Rock Hilliard, Orthopedic Surgery, Encounter Date: 09/15/2024 Results Created Date Observation Date Name Description Value Unit Range Abnormal Flag Note LastModifiedBy Organization Detail LastModifiedTime 09/15/20 24 09/15/2024 XR, knee, 3 view [email or web address] ?Encry pted=s hAaTro YD8dLq bEUv6g %2BXZw aYqtaq 0bqfl% 2Fg9IQ a4ajBk vP9nXo QUaueC m3YtLR FvZlgJ JJ8mAn HZtai3 9x5932 AC0Kqb n6CUKK nKiQtr MwF INTERFACE [facility] [address], [place], [address], 09/15/2024 16:30:10 09/15/20 24 09/15/2024 XR, knee, 3 view [email or web address] ?Encry pted=s Terri YD8dLq bEUv6g %2BXZw aYqtaq 0bqfl% 2Fg9IQ a4ajBk vP9nXo QUaueC m3YtLR FvZlgJ JJ8mAn HZtai3 6c1639 AC0Kqb n6CUKK nKiQtr MwF INTERFACE [facility] [address], [place], [address], 09/15/2024 16:30:12 Result Notes None recorded. Problems Name Problem SNOMED Code Status Onset Date Resolution Date Notes Provider Name and Address Organization Details Recorded Time Pain of bilateral knee joints 64208685029513 4 Active 2023 BUDDY dunlap [facility] 4 09:27:02 Problem Notes None recorded. Medical Equipment None Reported. Allergies Allergen ID Allergen Name Allergen Category Reaction Reaction Severity Criticality Documentation Date Start Date Code Code System Note Provider Name and Address Organization Details Recorded Time 828316 Zofran medicatio n anaphylax is Not available high 12/11/2023 00747 RxNorm JAYLAN dunlap [facility] 4 14:08:52 636648 adhesive environme nt,medica tion itching Not available Not available 12/11/2023 JAYLAN dunlap [facility] 4 14:09:04 Medications Name Sig Start Date Stop Date Status Note LastModified by Organization Details LastModified Time atorvastati n 20 mg tablet TAKE 1 TABLET BY MOUTH AT BEDTIME active Not Available Not Available No t Available benzonatate 200 mg capsule TAKE 1 CAPSULE BY MOUTH 2 TO 3 TIMES A DAY NEEDED FOR COUGH active Not Available Not Available No t Available senna 8.6 mg tablet TAKE 3 TABLETS BY MOUTH AT BEDTIME active Not Available Not Available No t Available prednisone 20 mg tablet TAKE 2 TABLETS BY MOUTH DAILY 06/12 completed Not Available Not Available Not Available clonazepam 0.5 mg tablet TAKE 1 TABLET BY MOUTH THREE TIMES DAILY NEEDED FOR ANXIETY active Not Available Not Available No t Available prochlorper azine maleate 10 mg tablet TAKE 1 TABLET BY MOUTH TWICE DAILY NEEDED FOR NAUSEA OR VOMITING 06/12 completed Not Available Not Available Not Available aspirin 81 mg tablet,anabel yed release TAKE 1 TABLET BY MOUTH EVERY DAY FOR 4 WEEKS active Not Available Not Available No t Available tramadol 50 mg tablet TAKE 1 TO 2 TABLETS BY MOUTH EVERY 6 HOURS NEEDED FOR MILD PAIN. DO NOT EXCEED 400 MG/ DAY active Not Available Not Available No t Available levothyroxi ne 100 mcg tablet TAKE 1 TABLET BY MOUTH DAILY active Not Available Not Available No t Available levothyroxi ne 88 mcg tablet TAKE 1 TABLET BY MOUTH DAILY active Not Available Not Available No t Available hydromorpho ne 2 mg tablet TAKE 1 TO 2 TABLETS BY MOUTH EVERY 4 HOURS NEEDED FOR SEVERE PAIN active Not Available Not Available No t Available metoclopram nirav 5 mg tablet TAKE 1 TABLET BY MOUTH 4 TIMES A DAY BEFORE MEAL/BEDT COY active Not Available Not Available No t Available trazodone 100 mg tablet TAKE 1 TABLET BY MOUTH AT BEDTIME active Not Available Not Available No t Available meclizine 25 mg tablet TAKE 1 TABLET BY MOUTH DAILY NEEDED FOR MOTION SICKNESS 06/12 completed Not Available Not Available Not Available phenazopyri dine 100 mg tablet TAKE 1 TABLET BY MOUTH THREE TIMES DAILY FOR 7 DAYS 06/12 completed Not Available Not Available Not Available cephalexin 500 mg capsule TAKE 1 CAPSULE BY MOUTH THREE TIMES DAILY FOR 7 DAYS 06/12 completed Not Available Not Available Not Available esomeprazol e magnesium 40 mg capsule,del ayed release TAKE 1 CAPSULE BY MOUTH TWICE DAILY active Not Available Not Available No t Available gabapentin 300 mg capsule TAKE 1 CAPSULE BY MOUTH AT BEDTIME active Not Available Not Available No t Available raloxifene 60 mg tablet TAKE 1 TABLET BY MOUTH DAILY 06/12 completed Not Available Not Available Not Available furosemide 20 mg tablet TAKE 1 TABLET BY MOUTH EVERY DAY active Not Available Not Available No t Available ergocalcife rol (vitamin D2) 1,250 mcg (50,000 unit) capsule TAKE 1 CAPSULE BY MOUTH DAILY active Not Available Not Available No t Available estradiol 0.01% (0.1 mg/gram) vaginal cream USE 1 GRAM VAGINALLY DAILY AT BEDTIME TAKE EVERY NIGHT FOR 2 WEEKS THEN 2 TIMES A WEEK 06/12 completed Not Available Not Available Not Available albuterol sulfate HFA 90 mcg/actuati on aerosol inhaler INHALE 2 PUFFS BY MOUTH EVERY 6 HOURS NEEDED FOR SHORTNESS OF BREATH OR WHEEZING active Not Available Not Available No t Available levothyroxi ne 112 mcg tablet TAKE 1 TABLET BY MOUTH DAILY 04/16 completed Not Available Not Available Not Available oxycodone 5 mg tablet TAKE 1 TABLET BY MOUTH EVERY 4-6 HOURS NEEDED FOR PAIN. DO NOT DRIVE WHILE TAKING THIS MEDICATIO N. 12/10 completed Not Available Not Available Not Available cholecalcif bozena (vitamin D3) 25 mcg (1,000 unit) capsule TAKE 1 CAPSULE BY MOUTH EVERY DAY active Not Available Not Available No t Available enoxaparin 40 mg/0.4 mL subcutaneou s syringe INJECT 0.4ML UNDER THE SKIN DAILY 06/12 completed Not Available Not Available Not Available Laxative (bisacodyl) 5 mg tablet TAKE 2 TABLETS BY MOUTH EVERY NIGHT AT BEDTIME active Not Available Not Available No t Available cyclobenzap rine 5 mg tablet TAKE 1 TABLET BY MOUTH TWICE DAILY FOR 10 DAYS NEEDED FOR MUSCLE SPASM. MAY CAUSE DROWSINES S active Not Available Not Available No t Available bupropion HCl XL 300 mg 24 hr tablet, extended release TAKE 1 TABLET BY MOUTH DAILY active Not Available Not Available No t Available nitrofurant oin monohydrate /macrocryst als 100 mg capsule TAKE 1 CAPSULE BY MOUTH TWICE DAILY FOR 7 DAYS 06/12 completed Not Available Not Available Not Available oxycodone HCl-oxycodo ne-ASA as directed 1 Tab po q 4-[address]IVE WHILE TAKING THIS MEDICATIO N 04/16 completed Statu s: 'Curr ent'; Not Available Not Available Not Available Myrbetriq 50 mg tablet,exte nded release 06/12 completed Not Available Not Available Not Available Linzess 145 mcg capsule TAKE 1 CAPLET BY MOUTH EVERY MORNING WITH A FULL GLASS OF WATER 06/12 completed Not Available Not Available Not Available Linzess 290 mcg capsule TAKE 1 CAPSULE BY MOUTH EVERY MORNING 04/16 completed Not Available Not Available Not Available Linzess Linzess 290MCG Capsule 04/16 completed Statu s: 'Curr ent'; Not Available Not Available Not Available Breo Ellipta 100 mcg-25 mcg/dose powder for inhalation INHALE 1 PUFF BY MOUTH DAILY active Not Available Not Available No t Available Linzess 72 mcg capsule TAKE 1 CAPSULE BY MOUTH EVERY MORNING 06/12 completed Not Available Not Available Not Available Arnuity Ellipta 50 mcg/actuati on powder for inhalation INHALE 1 PUFF BY MOUTH EVERY 24 HOURS active Not Available Not Available No t Available Sutab 1.479-0.188 -0.225 gram tablet TAKE DIRECTED PER PACKAGE 06/12 completed Not Available Not Available Not Available Gemtesa 75 mg tablet TAKE 1 TABLET BY MOUTH DAILY active Not Available Not Available No t Available Vitals Date Recorded Body height Body mass index (BMI) Body weight Provider Name and Address Organization Details Last Updated DateTime 09/15/2024 163.83 cm 38.9 kg/m2 996931.25 g ARGELIA POWER [facility] 09/15/2024 15:50:28 Social History Question Answer Notes LastModified by Organizat ion Details LastModified Time Tobacco Smoking Status Never Smoker JAYLAN dunlap [facility] 04/16/2024 13:02:09 What Is Your Level Of Alcohol Consumption? None [email or web address] Information not available 04/16/2024 Do You Use Any Illicit Or Recreational Drugs? No Information not available 04/16/2024 Do You Or Have You Ever Used Any Other Forms Of Tobacco Or Nicotine? No Information not available 04/16/2024 Sex: Unknown Functional Status None recorded. Mental Status None recorded. Family History Nothing Reported. Medical History Condition Response Anxiety/Depression Y Sleep Apnea Y Gastrointestinal Disease Y Acid Reflux (GERD) Y Cancer Y Fibromyalgia Y Thyroid Problems Y Cholesterol Y Osteoporosis Y Gynecological HistoryNo gynecological history recorded. Obstetrics History GPAL:G 0 P 0 0 0 0 Past Encounters Encounter ID Performer Location Encounter Start Date Encounter Closed Date Diagnosis/Indication Diagnosis SNOMED-CT Code Diagnosis ICD10 Code [id number] [facility] [address] [place] [address] 08/21/2024 10:27:50 09/18/2024 04:04:43 Osteoarthritis of right knee joint [id number] 01381 M17.11 [id number] [facility] [address] [place] [address] 09/15/2024 15:37:03 09/15/2024 17:01:33 Pain of right knee region 0817916978 47572 M25.561 History of total knee arthroplasty 5831971161 105 Z96.651 Health Concerns Section Related Observation LastModified by Organization Detai ls LastModified Time None Recorded Concern Status LastModified by Organization Details LastModified Time None Recorded Payers Encounter Date Sequence Insurance Name Policy Number Policy Miles Covered Member ID Miles Member ID Guarantor Name 09/15/2024 1 [place] [employer] [place] Reema Dalton [id number] Reema Dalton 09/15/2024 2 [place] [id number] Reema Dalton [id number] Reema Dalton OBGyn Episode No OBEpisode recorded.
--- OUTSIDE RECORDS SUMMARY | 2024-09-21 12:55 | XMS_ITS | Data Portability ---
Author Organization JACQUELINE Valentin Thorne [facility] Surgeons [facility], [facility] Address [address] [place] [address] Care Team Providers Care Employment Evaluator/Case Manager Name Role Phone QUETA CAZARES Primary Care Provider [phone] Assessment Encounter Date Assessment Date Assessment LastModified by Organization Details LastModified Time 06/12/2024 06/12/2024 History: Patient is a 73-year-old female who presents today for initial evaluation of right greater than left-sided knee pain. She has had the pain for 20 years. Cortisone is no longer effective. Takes ibuprofen for discomfort. Pain level IX/10. Reports limitations of activities including difficulty with stairs. Unable to kneel or squat. Does report a limp. Ambulates with a walker. PMH/PSH/MEDS/ALL/F MH/SOC HX/ROS are reviewed in detail per my medical intake sheet. Of note: Left hip fracture status post pinning 2022, reflux, asthma, hypertension, high cholesterol, obesity, questionable lupus, thyroid disease, chronic neck and back pain, significant bowel issues ranging from incontinence to constipation General Exam: Vital signs are as noted below Mental status: Alert and lucid. Normal insight, affect and grooming. ARSON AND BOMB INVESTIGATOR: Gross motor coordination is intact. No spasticity or clonus noted. Extremities: Calves are soft nontender, skin intact Orthopedic Examination: Left Hip:Full range of motion without pain. No trochanteric tenderness. Right Knee: Neutral alignment. Range of motion 5-115. Severe tenderness along the joint line. Mild effusion. No instability. Left Knee: Neutral alignment. Range of motion 5-115. Severe tenderness along the joint line. Mild effusion. No instability. Antalgic gait pattern favoring the right side. Full strength and sensation distally X-rays: Radiographs ordered and obtained today including a standing AP, Patel view, nonweightbearing lateral views, and merchant view. These radiographs demonstrate osteoarthrits of the [ ] knee. There is joint space narrowing. Assessment: Osteoarthritis of the right greater than left knee which has failed greater than 3 months of nonoperative treatment including medication, activity modification, and injections. The patient is in too much discomfort to participate in any meaningful physical therapy. PLAN: The patient was thoroughly counseled today regarding their knee condition, its natural history and the options, both operative and non-operative. The nature of knee replacement surgery, the potential risks, benefits, and complications, the magnitude of the surgery, the intensity of postoperative recovery as well as its elective nature were explained at length today. Although it is impossible to list all of the possible complications of any operation or procedure, I explained that some of the major complications that may arise include the following: Blood loss requiring transfusion, infection (early or late), blood clots, dislocation, pain (persistent or new), scars numbness or tenderness, unequal leg lengths, weakness, stiffness, loss of motion, clicking of implant, calcification, fracture of bone, instability of leg, nerve damage (paralysis or numbness), blood vessel damage, implant loosening, implant breakage, wearing of the implant, need for future surgery, allergic reaction, metal toxicity, medical complications including confusion, heart attack, stroke, or ). Issues regarding lifelong infection and activity precautions were reviewed. The longevity of the implants was discussed. The patient understands the potential need for revision surgery. We discussed performing the surgery in either an inpatient or outpatient setting as well as the pros and cons of both. The patient has elected to proceed in a inpatient setting. The patient will require clearance from a medical doctor prior to surgery. She is currently getting a cardiac workup as well which needs to be completed. She also is currently getting a bowel workup which also needs to be completed. The patient wishes to schedule an elective total knee replacement on the right side at this time. Next planned follow-up is at the history and physical. The patient knows I will be happy to meet with them at any time in order to review any additional questions or concerns that they might have. [email or web address] Not available 06/12/2024 13:44:39 08/21/2024 08/21/2024 PRIMARY DIAGNOSI S: Osteoarthritis of the right knee. REASON FOR ADMISSION: The patient is being admitted for right total knee arthroplasty with Dr. Daniel Paulson on 09/01/2024. HISTORY OF PRESENT ILLNESS: Mrs. Dalton is a pleasant 74-year-old female who presents today for surgical history and physical prior to undergoing a right total knee arthroplasty with Dr. Paulson on 09/01/2024. She has a known longstanding history of right knee osteoarthritis and has undergone a lengthy course of conservative management and generalized failure of nonsurgical options. Her pain is severe and worsens with activity, it has gotten to the point where it is significantly interfering with her ability to perform activities of daily living as well as daily social tasks. She is now interested in pursuing right total knee arthroplasty with Dr. Paulson on 09/01/2024. PAST MEDICAL HISTORY: 1. Osteoarthritis of the right knee. 2. Lupus. 3. Lakhani's esophagus. 4. CKD stage IIIA. 5. Depression. 6. Anxiety. 7. Fibromyalgia. 8. History of breast cancer, status post lumpectomy and chemotherapy with radiation in 2008. 9. Hyperlipidemia. 10. Hypothyroidism. 11. Nephrolithiasis. 12. Osteopenia. 13. Rectocele. 14. Obesity. 15. Urinary incontinence. PAST SURGICAL HISTORY: 1. Shoulder surgery in 2023. 2. Hip surgery in 2022. 3. Cholecystectomy in 1979. CURRENT MEDICATIONS: 1. Albuterol inhaler as needed. 2. Gemtesa 75 mg daily in the evening. 3. Senna 8.6 mg as needed. 4. Atorvastatin 20 mg daily in the evening. 5. Gabapentin 300 mg daily in the evening. 6. Trazodone 100 mg daily in the evening. 7. Levothyroxine 100 mcg daily in the evening. 8. Metoclopramide 5 mg daily in the evening. 9. Esomeprazole 40 mg daily in the evening. 10. Furosemide 20 mg daily in the morning. 10. Clonazepam 0.5 mg as needed. 11. Aspirin 81 mg daily in the morning. 12. Multiple multivitamin [id number] supplements including Mighty Reds, stool softener, magnesium, cranberry with vitamin C, turmeric, vitamin C, flaxseed oil, calcium with D3, which was stopped in preparation for surgery. ALLERGIES: LATEX CAUSES RASH WITH LONG-TERM GLOVE USE. SHE STATES THAT SHE ALSO HAS DIFFICULTY BREATHING WITH ZOFRAN. SHE STATES THAT SHE ALSO HAS ISSUES WITH CERTAIN TYPES OF ADHESIVES, WHICH CAUSE BLISTERING. SHE WAS GIVEN A SMALL STRIP TO PLACE ON HER LEFT ARM OF THE AQUACEL DRESSING TO BE USED. SHE WILL DISCUSS WITH DR. PAULSON IF ANY ISSUE ARISES. SOCIAL HISTORY: She denies alcohol, tobacco or illicit drug use. PHYSICIANS: The patient's primary care physician is Queta Cazares N.P. REVIEW OF SYSTEMS: The patient's 12-point review of systems is negative unless mentioned in HPI. PHYSICAL EXAMINATION: VITAL SIGNS: Weight is 214 pounds. GENERAL: Alert and oriented. Normal insight, affect, and grooming. SKIN: Intact without rash or lesions. Nails without clubbing or cyanosis. HEENT: Normocephalic. Conjunctivae pink. Sclerae are anicteric. NECK: Supple. Trachea midline. No lymphadenopathy. LUNGS: Clear to auscultation bilaterally. Breathing is unlabored. HEART: Regular rate and rhythm with a normal S1, S2. No murmurs, rubs or gallops appreciated. ABDOMEN: Soft, nontender. EXTREMITIES: Right knee has a neutral alignment. Range of motion is 5-115 degrees. There is severe tenderness in along the joint line. There is mild effusion and no instability. Left knee with a neutral alignment. Range of motion is 5-115 degrees. There is severe tenderness along the joint line. There is mild effusion. There is no instability. There is an antalgic gait pattern favoring the right side. There is full strength and sensation distally. There is 2+ dorsalis pedis pulse. She states that at times she does have some decreased sensation to the bottom of her foot and into the toes. PREOPERATIVE DIAGNOSTIC DATA: Orthopedic x-rays demonstrate osteoarthritis of the right knee. There is joint space narrowing, subchondral sclerosis and osteophyte formation. DIAGNOSTIC DATA: EKG which was performed at the patient's apricot washer's office shows normal sinus rhythm with nonspecific T-wave abnormality. Heart rate was 64. LABORATORY DATA: CBC, coags and chemistries were reviewed and are satisfactory for surgery. The patient's creatinine level was 1.00 and her GFR was 58. Hemoglobin A1c was 5.9 with a glucose of 107. ASSESSMENT AND PLAN: The patient has advanced osteoarthritis of the right knee and is now scheduled for right total knee arthroplasty with Dr. Daniel Paulson on 09/01/2024. She has been seen by the medicine preoperative clinic, whose note is still pending at this time. This note will be updated after reviewing their documentation. We do have a note from her apricot washer, Dr. Anaya at [facility], which states that the patient is optimized to undergo surgery with low to intermediate risk for perioperative cardiovascular morbidity and mortality. She states that she had been seeing the apricot washer for some dyspnea. She was also seen by [facility], Dr. Grigsby as she was recently diagnosed with precancerous polyp in the stomach. GI felt that she should be able to proceed with surgery. Plan is for a polypectomy in the near future. Discharge plans will be to home with services. She is not a candidate for same day discharge. She will receive an IA TXA due to history of lupus. She will be on aspirin postoperatively for DVT prophylaxis. We will monitor point of cares and order sliding scale insulin due to elevated hemoglobin A1c. She will not receive Celebrex due to her current renal function. She should not receive Zofran due to allergy. She has been counseled regarding the risks and benefits of the proposed procedure. Questions have been answered and she acknowledges understanding. The patient wishes to proceed with a right total knee arthroplasty with Dr. Paulson on 09/01/2024. CONTACTS: Her daughter, Nimo, at [phone]. Prescriptions given at the time of history and physical today include none. She will require prescription for aspirin, Colace and pain medications at time of discharge. She already takes esomeprazole. [email or web address] Not available 08/21/2024 14:17:27 09/15/2024 09/15/2024 I am seeing the patient [...] no acute distress. Musculoskeletal System: Lower Leg: General/bilateral: ?? Calves of both lower legs were [...] TESTS X-rays ordered, obtained and reviewed at [facility] today, three views, reveals maintained alignment [...] re-evaluation, sooner if there is any complications. [email or web address] Not available 09/15/2024 17:01:13 Plan of Treatment Reminders Order Date Submit Date Provider Last Modified By Organization Details Last Modified Time Details Appointments POST OP 15 2024 03:15P M Jose Angel Tyson PA-C Not available Not available Not available RECHECK 10 2024 03:30P M Daniel Paulson MD Not available Not available Not available Lab None recorded . Referral physical therapis t referral - EVALUATE & Rx- SX Right RCR 11/27/23 PROM 3 weeks, AAROM 5 weeks, AROM 7 weeks, RC/Ps strength ening 3-4 months 2023 024 angelina [facility], [facility] [place], [address], 04/30/2024 15:46:17 physical therapis t referral - rom, strength ening. 2023 024 patrick [facility], [address] [place], [address], 09/21/2024 08:34:28 Procedures None recorded . Surgeries None recorded . Imaging XR, knee, 4 or more view - 208 b knee 4v 2023 024 [facility], [address], [place], [address], 07/06/2024 08:27:07 XR, knee, 3 view - room 120 3V R TKR [address] [email or web address], [address], [place], [address], 09/21/2024 08:34:28 Medication Orders None recorded . Patient TargetsNo targets recorded. Patient InstructionsNo instructions recorded. Reason for Referral Physical Therapist Referral for Postoperative care EVALUATE & Rx- SX Right RCR 11/27/23 PROM 3 weeks, AAROM 5 weeks, AROM 7 weeks, RC/Ps strengthening 3-4 months Referring Physician: Noemy Cox, Orthopedic Surgery, [id number] Encounter Date: 04/16/2024 Physical Therapist Referral for History of total knee arthroplasty rom, strengthening. Referring Physician: Rock Hilliard, Orthopedic Surgery, Encounter Date: 09/15/2024 Results Created Date Observation Date Name Description Value Unit Range Abnormal Flag Note LastModifiedBy Organization Detail LastModifiedTime 08/13/20 24 08/14/2024 CBC WITH DIFFE RENTI AL/PL ATELE T WBC 7.7 x10e3 /uL 3.4-10 .8 normal Not Available [facility] ([facility]) [address] [place], [address], 08/17/2024 16:40:00 08/13/20 24 08/14/2024 CBC WITH DIFFE RENTI AL/PL ATELE T RBC 4.88 x10e6 /uL 3.77-5 .28 normal Not Available [facility] ([facility]) [address] [place], [address], 08/17/2024 16:40:00 08/13/20 24 08/14/2024 CBC WITH DIFFE RENTI AL/PL ATELE T hemoglobin 13.1 g/dL 11.1-1 5.9 normal Not Available [facility] ([facility]) [address] [place], [address], 08/17/2024 16:40:00 08/13/20 24 08/14/2024 CBC WITH DIFFE RENTI AL/PL ATELE T hematocrit 42.2 % 34.0-4 6.6 normal Not Available [facility] ([facility]) [address] [facility], [place], [address], 08/17/2024 16:40:00 08/13/20 24 08/14/2024 CBC WITH DIFFE RENTI AL/PL ATELE T MCV 87 fL 79-97 normal Not Available [facility] ([facility]) [address] [place], [address], 08/17/2024 16:40:00 08/13/20 24 08/14/2024 CBC WITH DIFFE RENTI AL/PL ATELE T MCH 26.8 pg 26.6-3 3.0 normal Not Available [facility] ([facility]) [address] [facility], [place], [address], 08/17/2024 16:40:00 08/13/20 24 08/14/2024 CBC WITH DIFFE RENTI AL/PL ATELE T MCHC 31.0 g/dL 31.5-3 5.7 below low normal Not Available [facility] ([facility]) [address] [place], [address], 08/17/2024 16:40:00 08/13/20 24 08/14/2024 CBC WITH DIFFE RENTI AL/PL ATELE T RDW 13.7 % 11.7-1 5.4 Not Available [facility] ([facility]) [address] [place], [address], 08/17/2024 16:40:00 08/13/20 24 08/14/2024 CBC WITH DIFFE RENTI AL/PL ATELE T platelets 203 x10e3 /uL 150-45 0 normal Not Available [facility] ([facility]) [address] [place], [address], 08/17/2024 16:40:00 08/13/20 24 08/14/2024 CBC WITH DIFFE RENTI AL/PL ATELE T neutrophils 60 % not estab. normal Not Available [facility] ([facility]) [address] [facility], [place], [address], 08/17/2024 16:40:00 08/13/20 24 08/14/2024 CBC WITH DIFFE RENTI AL/PL ATELE T lymphs 28 % not estab. normal Not Available [facility] ([facility]) [address] [facility], [place], [address], 08/17/2024 16:40:00 08/13/20 24 08/14/2024 CBC WITH DIFFE RENTI AL/PL ATELE T monocytes 9 % not estab. normal Not Available [facility] ([facility]) [address] [facility], [place], [address], 08/17/2024 16:40:00 08/13/20 24 08/14/2024 CBC WITH DIFFE RENTI AL/PL ATELE T eos 2 % not estab. normal Not Available [facility] ([facility]) [address] [facility], [place], [address], 08/17/2024 16:40:00 08/13/20 24 08/14/2024 CBC WITH DIFFE RENTI AL/PL ATELE T basos 1 % not estab. normal Not Available [facility] ([facility]) [address] [facility], [place], [address], 08/17/2024 16:40:00 08/13/20 24 08/14/2024 CBC WITH DIFFE RENTI AL/PL ATELE T immature cells GREASE BUFFER Not Available [facility] ([facility]) [address] [place], [address], 08/17/2024 16:40:00 08/13/20 24 08/14/2024 CBC WITH DIFFE RENTI AL/PL ATELE T neutrophils (absolute) 4.6 x10e3 /uL 1.4-7. 0 normal Not Available [facility] ([facility]) [address] [place], [address], 08/17/2024 16:40:00 08/13/20 24 08/14/2024 CBC WITH DIFFE RENTI AL/PL ATELE T lymphs (absolute) 2.1 x10e3 /uL 0.7-3. 1 normal Not Available [facility] ([facility]) [address] [place], [address], 08/17/2024 16:40:00 08/13/20 24 08/14/2024 CBC WITH DIFFE RENTI AL/PL ATELE T monocytes(ab solute) 0.7 x10e3 /uL 0.1-0. 9 normal Not Available [facility] ([facility]) [address] [place], [address], 08/17/2024 16:40:00 08/13/20 24 08/14/2024 CBC WITH DIFFE RENTI AL/PL ATELE T eos (absolute) 0.2 x10e3 /uL 0.0-0. 4 normal Not Available [facility] ([facility]) [address] [place], [address], 08/17/2024 16:40:00 08/13/20 24 08/14/2024 CBC WITH DIFFE RENTI AL/PL ATELE T baso (absolute) 0.1 x10e3 /uL 0.0-0. 2 normal Not Available [facility] ([facility]) [address] [place], [address], 08/17/2024 16:40:00 08/13/20 24 08/14/2024 CBC WITH DIFFE RENTI AL/PL ATELE T immature granulocytes 0 % not estab. Not Available [facility] ([facility]) [address] [place], [address], 08/17/2024 16:40:00 08/13/20 24 08/14/2024 CBC WITH DIFFE RENTI AL/PL ATELE T immature grans (abs) 0.0 x10e3 /uL 0.0-0. 1 Not Available [facility] ([facility]) [address] [facility], [place], [address], 08/17/2024 16:40:00 08/13/20 24 08/14/2024 CBC WITH DIFFE RENTI AL/PL ATELE T NRBC GREASE BUFFER Not Available [facility] ([facility]) [address] [facility], [place], [address], 08/17/2024 16:40:00 08/13/20 24 08/14/2024 CBC WITH DIFFE RENTI AL/PL ATELE T hematology comments: GREASE BUFFER Not Available [facility] ([facility]) [address] [facility], [place], [address], 08/17/2024 16:40:00 08/13/20 24 08/14/2024 ELECT ROLYT E PANEL sodium 141 mmol/ L 134-14 4 normal Not Available [facility] ([facility]) [address] [facility], [place], [address], 08/17/2024 16:40:01 08/13/20 24 08/14/2024 ELECT ROLYT E PANEL potassium 4.5 mmol/ L 3.5-5. 2 normal Not Available [facility] ([facility]) [address] [facility], [place], [address], 08/17/2024 16:40:01 08/13/20 24 08/14/2024 ELECT ROLYT E PANEL chloride 105 mmol/ L 96-106 normal Not Available [facility] ([facility]) [address] [facility], [place], [address], 08/17/2024 16:40:01 08/13/20 24 08/14/2024 ELECT ROLYT E PANEL carbon dioxide, total 22 mmol/ L 20-29 normal Not Available [facility] ([facility]) [address] [facility], [place], [address], 08/17/2024 16:40:01 08/13/20 24 08/14/2024 BUN+C REAT BUN 17 mg/dL 8-27 normal Not Available [facility] ([facility]) [address] [facility], [place], [address], 08/17/2024 16:40:03 08/13/20 24 08/14/2024 BUN+C REAT creatinine 1.00 mg/dL 0.57-1 .00 normal Not Available [facility] ([facility]) [address] [facility], [place], [address], 08/17/2024 16:40:03 08/13/20 24 08/14/2024 BUN+C REAT eGFR 58 mL/mi n/1.7 3 >59 below low normal Not Available [facility] ([facility]) [address] [facility], [place], [address], 08/17/2024 16:40:03 08/13/20 24 08/14/2024 BUN+C REAT BUN/creatini ne ratio 17 12-28 normal Not Available [facility] ([facility]) [address] [facility], [place], [address], 08/17/2024 16:40:03 08/13/20 24 08/17/2024 PROTH ROMBI N TIME, INR prothrombin time 10.9 sec Refer ence Range : 18 years and older : 9.1 - 12.0 Not Available [facility] [address] [place], [address], 08/17/2024 16:40:04 08/13/20 24 08/17/2024 PROTH ROMBI N TIME, INR INR 1.0 ratio Refer ence Range : >1 month : 0.9 - 1.2 Not Available [facility] [address] [place], [address], 08/17/2024 16:40:04 08/13/20 24 08/14/2024 HEMOG LOBIN A1C hemoglobin A1C 5.9 % 4.8-5. 6 above high normal Predi abete s: 5.7 - 6.4 Diabe bautista: >6.4 Glyce kamar contr ol for adult s with diabe bautista: <7.0 Not Available [facility] ([facility]) [address] [facility], [place], [address], 08/17/2024 16:40:04 08/13/20 24 08/14/2024 PTT, ACTIV ATED APTT 26 sec 24-33 normal This test has not been valid ated for monit oring unfra ction ated hepar in thera py. aPTT- based thera peuti c range s for unfra ction ated hepar in thera py have not been estab sohan preston For gener al guide lines on Hepar in monit oring , refer to the [facility] Direc tory of Yang tejeda. Not Available [facility] ([facility]) [address] [facility], [place], [address], 08/17/2024 16:40:05 08/13/20 24 08/14/2024 GLUCO SE glucose 107 mg/dL 70-99 above high normal Not Available [facility] ([facility]) [address] [facility], [place], [address], 08/17/2024 16:40:06 05/30/20 24 09/13/2023 imagi ng/di agnos tic resul t No observ ation record ed. [email or web address] Not Available 05/02 00:18:38 05/30/20 24 10/28/2020 imagi ng/di agnos tic resul t No observ ation record ed. [email or web address] Not Available 05/02 00:18:48 06/12/20 24 06/12/2024 XR, knee, 4 or more view [email or web address] ?Encry pted=s hAaTro YD8dLq bEUv6g %2BXZw aYqtaq 0bqfl% 2Fg9IQ a4ajBk vP9nXo QUaueC m3YtLR FvZlgJ JJ8mAn HZtai3 5y4158 AC0Kqa n6NUKu hKiQtr MwF INTERFACE [facility] [address], [place], [address], 06/12/2024 09:43:18 06/12/20 24 06/12/2024 XR, knee, 4 or more view [email or web address] ?Encry pted=s hAaTro YD8dLq bEUv6g %2BXZw aYqtaq 0bqfl% 2Fg9IQ a4ajBk vP9nXo QUaueC m3YtLR Zl JJ8Augusta HZtai3 7k6904 AC0Kqa n6NUKu hKiQtr MwF INTERFACE [facility] [address], [place], [address], 06/12/2024 09:43:21 09/15/20 24 09/15/2024 XR, knee, 3 view [email or web address] ?Encry pted=s hAaTro YD8dLq bEUv6g %2BXZw aYqtaq 0bqfl% 2Fg9IQ a4ajBk vP9nXo QUaueC m3YtLR Zl J8Augusta HZtai3 3l9665 AC0Kqb n6CUKK nKiQtr MwF INTERFACE [facility] [address], [place], [address], 09/15/2024 16:30:10 09/15/20 24 09/15/2024 XR, knee, 3 view [email or web address] ?Encry pted=s hAaTro YD8dLq bEUv6g %2BXZw aYqtaq 0bqfl% 2Fg9IQ a4ajBk vP9nXo QUaueC m3YtLR FvZlgJ JJ8mAn HZtai3 4l0419 AC0Kqb n6CUKK nKiQtr MwF INTERFACE [facility] [address], [place], [address], 09/15/2024 16:30:12 Result Notes None recorded. Problems Name Problem SNOMED Code Status Onset Date Resolution Date Notes Provider Name and Address Organization Details Recorded Time Pain of bilateral knee joints 48079265600783 4 Active 2023 BUDDY dunlap [place] - [facility] 09:27:02 Problem Notes None recorded. Procedures Surgical History None recorded. Imaging Results Imaging Date Name Status LastModified by Organiz ation Details LastModified Time 09/13/2023 imaging/diag nostic result completed Information not available 05/30/2024 00:18:38 10/28/2020 imaging/diag nostic result completed Information not available 05/30/2024 00:18:48 06/12/2024 XR, knee, 4 or more view completed INTERFACE [facility] [address], [place], [address], 06/12/2024 09:43:18 06/12/2024 XR, knee, 4 or more view completed INTERFACE [facility] [address], [place], [address], 06/12/2024 09:43:21 09/15/2024 XR, knee, 3 view completed INTERFACE [facility] [address], [place], [address], 09/15/2024 16:30:10 09/15/2024 XR, knee, 3 view completed INTERFACE [facility] [address], [place], [address], 09/15/2024 16:30:12 Procedure Notes None recorded. Medical Equipment None Reported. Allergies Allergen ID Allergen Name Allergen Category Reaction Reaction Severity Criticality Documentation Date Start Date Code Code System Note Provider Name and Address Organization Details Recorded Time 825828 Zofran medicatio n anaphylax is Not available high 12/11/2023 11056 RxNorm JAYLAN dunlap [facility] 4 14:08:52 655612 adhesive environme nt,medica tion itching Not available Not available 12/11/2023 JAYLAN dunlap [facility] 4 14:09:04 Medications Name Sig Start [...] and Address Organization Details Last Updated DateTime 04/16/2024 165.1 cm 32.4 kg/m2 06846.51 g JAYLAN Funk [place] - [facility] 04/16/2024 13:00:55 Date Recorded Body height Body mass index (BMI) Body weight Provider Name and Address Organization Details Last Updated DateTime 06/12/2024 163.83 cm 36.3 kg/m2 30259.36 g BUDDY PEREZ [facility] 06/12/2024 09:25:17 Date Recorded Body height Body mass index (BMI) Body weight Provider Name and Address Organization Details Last Updated DateTime 06/30/2024 163.83 cm 36.3 kg/m2 24109.36 g JAYLAN Funk [facility] 06/30/2024 13:52:06 Date Recorded Body height Body mass index (BMI) Body weight Provider Name and Address Organization Details Last Updated DateTime 08/21/2024 163.83 cm 36.2 kg/m2 03268.77 g ANA RODRIGUEZ [facility] 08/21/2024 10:36:33 Date Recorded Body height Body mass index (BMI) Body weight Provider Name and Address Organization Details Last Updated DateTime 09/15/2024 163.83 cm 38.9 kg/m2 263336.25 g ARGELIA SINGHERON [facility] 09/15/2024 15:50:28 Social History Question Answer Notes LastModified by Organizat ion Details LastModified Time Tobacco Smoking Status Never Smoker JAYLAN dunlap [facility] 04/16/2024 13:02:09 What Is Your Level Of Alcohol Consumption? None Information not available 04/16/2024 Do You Use [...] Diagnosis/Indication Diagnosis SNOMED-CT Code Diagnosis ICD10 Code [id number] Noemy Cox PA-C [facility] [address] [place] [address] 12/11/2023 13:59:40 12/11/2023 14:58:00 Postoperative care 058711079 Z48.89 [id number] Gaetano Garcia MD [facility] [address] [place] [address] 01/21/2024 12:41:53 02/10/2024 10:24:06 Full thickness rotator cuff tear 923543431 M75.828 [id number] Noemy Cox PA-C [facility] [address] [place] [address] 04/16/2024 12:44:35 04/30/2024 15:46:17 Postoperative care 541036273 Z48.89 [id number] Daniel Paulson MD [facility] [address] [place] [address] 06/12/2024 08:53:43 07/06/2024 08:27:07 Pain of bilateral knee joints 5734362807 25973 M25.561 M25.562 Osteoarthr itis of right knee joint 3819280477 51824 M17.11 [id number] Noemy Cox PA-C [facility] [address] [place] [address] 06/30/2024 13:41:39 07/16/2024 09:32:22 Postoperative care 778749629 Z48.89 [id number] Dayron Fonseca NP [facility] [address] [place] [address] 08/21/2024 10:27:50 09/18/2024 04:04:43 Osteoarthritis of right knee joint 1716546150 27179 M17.11 [id number] Rock Hilliard PA-C [facility] [address] [place] [address] 09/15/2024 15:37:03 09/15/2024 17:01:33 Pain of right knee region 9456110021 38059 M25.561 History of total knee arthroplasty 7228644479 105 Z96.651 Health Concerns Section Related Observation LastModified by Organization Detai ls LastModified Time None Recorded Concern Status LastModified by Organization Details LastModified Time None Recorded Advance Directives Directive None Recorded Payers Encounter Date Sequence Insurance Name Policy Number Policy Miles Covered Member ID Miles Member ID Guarantor Name 04/16/2024 1 [place] [employer] Reema Dalton [id number] Reema Dalton 04/16/2024 2 [place] [id number] Reema Abimael Dalton [id number] Reema Dalton 06/12/2024 1 [place] Reema Abimael Dalton [id number] Reema Dalton 06/12/2024 2 [place] [id number] Reema Abimael Dalton [id number] Reema Dalton 06/30/2024 1 [place] [employer] [place] Reema Abimael Dalton [id number] Reema Dalton 06/30/2024 2 [place] [id number] Reema Abimael Dalton [id number] Reema Dalton 08/21/2024 1 [place] [employer] Reema Abimael Dalton [id number] Reema Dalton 08/21/2024 2 [place] [id number] Reema Abimael Dalton [id number] Reema Dalton 09/15/2024 1 [place] [place] Reema Dalton [id number] Reema Dalton 09/15/2024 2 [place] [id number] Reema Abimael Dalton [id number] Reema Dalton Notes Date Note Type Note Provider Name and Address Organization Details Recorded Time 4 text/html I am seeing the patient today under the supervision of Dr. Garcia who was available but did not see the patient. Procedure: Right shoulder arthroscopic double row rotator cuff repair of the supraspinatus, extensive debridement, SAD, manipulationSurgery Date: 5-12-37Omteuhb: Dr. Garcia 73 y.o. female patient presents today about 5 months status post shoulder surgery noted above. Has 1 episode of trying to catch something heavy following surgery and did have shoulder pain. She unfortunately had to stop PT early due to severe vertigo episode that lasted 1 month. She continue to work on home exercise range of motion and strengthening as best she could. Denies numbness/ tingling.Physical Exam:Examination of the {{right* left}} upper extremity demonstrates: Well healed portal incisions. No pop-eye deformity noted. Active forward elevation to {{ 165 with altered mechanics#}}. External rotation to {{ 30#}}. Gentle supraspinatus strength testing {{4/5 4+/5* 5/5}}. Gentle Infraspinatus strength testing: {{4/5 4+/5* 5/5}} Full sensation intact distally. Demonstrates active ROM at the elbow, wrist, and digits. Full sensation intact distally. No acute signs of infection. Assessment: About 5 months status post {{Right* Left}} shoulder Right shoulder arthroscopic double row rotator cuff repair of the supraspinatus, extensive debridement, SAD, manipulation by Dr. Garcia 11-27-23 Plan: Referral back to physical therapy provided as patient feels she would like to work on her range of motion and strengthening. Discussed over the counter anti-inflammatories as needed for pain relief. No heavy lifting anything greater than 10 lbs until 6 months postop at which point patient may gradually progress activities as tolerated with return to baseline level of function. Discussed proper lifting mechanics with elbows close to her side. Discussed improvements in pain, function and strength will continue for up to 18 months after surgery. Patient will follow up {{in 2-3 months* as needed}}, or if any concerns arise. All of her concerns were addressed and she understands and agrees with the plan. Speech recognition bobcat operator software was used to create portions of this document. An attempt at proofreading has been made to minimize errors. Please call for corrections. Noemy Cox PA-C [address], [place], [address], [facility] - [facility] 04/16/2024 13:31:19 4 text/html I am seeing the patient today under the supervision of Dr. Uriarte who was available but did not see the patient. Procedure: Right shoulder arthroscopic double row rotator cuff repair of the supraspinatus, extensive debridement, SAD, manipulationSurgery Date: 9-07-38Mkrqcfd: Dr. Garcia 73 y.o. female patient presents today about 7 months status post shoulder surgery noted above. Has 1 episode of trying to catch something heavy following surgery and did have shoulder pain. She has been working with physical therapy and doing some strengthening. She is happy with her progress in her ROM and results. Denies numbness/ tingling. Physical Exam:Examination of the {{right* left}} upper extremity demonstrates: Well healed portal incisions. No pop-eye deformity noted. Active forward elevation to {{ 175 with improved mechanics#}}. External rotation to {{ 30#}}. Internal rotation interscapular region. Gentle supraspinatus strength testing {{4/5 4+/5* 5/5}}. Gentle Infraspinatus strength testing: {{4/5 4+/5* 5/5}} Full sensation intact distally. Demonstrates active ROM at the elbow, wrist, and digits. Full sensation intact distally. No acute signs of infection. Assessment: About 7 months status post {{Right* Left}} shoulder Right shoulder arthroscopic double row rotator cuff repair of the supraspinatus, extensive debridement, SAD, manipulation by Dr. Garcia 11-27-23 Plan: She will continue working with physical therapy on strengthening, discussed the importance of continuing these exercises on her own once discharged. Discussed over the counter anti-inflammatories as needed for pain relief. No heavy lifting anything greater than 10 lbs until 6 months postop at which point patient may gradually progress activities as tolerated with return to baseline level of function. Discussed proper lifting mechanics with elbows close to her side. Discussed improvements in pain, function and strength will continue for up to 18 months after surgery. Patient will follow up {{in 2-3 months as needed*}}, or if any concerns arise. All of her concerns were addressed and she understands and agrees with the plan. Speech recognition bobcat operator software was used to create portions of this document. An attempt at proofreading has been made to minimize errors. Please call for corrections. Noemy Cox PA-C [address] [facility] [address], [place], [address], [facility] 06/30/2024 14:21:07 OBGyn Episode No OBEpisode recorded.
[2024-09-21 13:00] VITALS: BP 130/74; PULSE 62; O2SAT 98; BMI 35.5
== END 2024-09-21 15:11 | disposition home or self-care (01) ==
PROVIDERS: PCP Nurse Practitioner Family; Visit Provider Nurse Practitioner Family
DX: Z96.651 Presence of right artificial knee joint (principal); M25.461 Effusion, right knee

== ENCOUNTER → 2024-09-21 12:53 | Outpatient (BNVA) | payer MEDICARE, SELFPAY | PROVIDERS: PCP Nurse Practitioner Family; Visit Provider Nurse Practitioner Family | DX: T84.84XA Pain due to internal orthopedic prosthetic devices, implants and grafts, initial encounter (principal); Z96.651 Presence of right artificial knee joint | CPT/HCPCS: 99212 ==

== ENCOUNTER 2024-10-26 10:28 | Day surgery (SDC) | payer MEDICARE, SELFPAY ==
--- NOTE | 2024-10-23 10:06 | P.CONAN_ITS ---
Documented by User: Pooja Martin NP 10/23/24 10:07 HPI - Anesthesia Eval Consult details Narrative: 74yo F for Upper Endoscopy PMFSH Active Problems Active Problems: All Active Problems Swelling of right knee (Acute) History of total right knee replacement (TKR) (Acute) Environmental allergies (Acute) Pre-op examination (Acute) Preoperative cardiovascular examination (Acute) Hyperparathyroidism (Acute) Fatigue (Acute) Lupus (Acute) Gastric dysplasia (Acute) BPPV (benign paroxysmal positional vertigo) (Acute) Vestibular disequilibrium (Acute) SOB (shortness of breath) (Acute) Bilateral knee pain (Acute) Tubular adenoma of colon (Acute) Near syncope (Acute) Tachycardia (Acute) Dizziness (Acute) Multiple pulmonary nodules (Acute) Dyspnea on exertion (Acute) Bronchiectasis (Acute) Delayed gastric emptying (Acute) Spleen anomaly (Acute) Interstitial lung disease (Acute) Chronic cough (Acute) Upper respiratory infection (Acute) Elevated alkaline phosphatase level (Acute) Restless leg syndrome (Acute) Osteoarthritis (Acute) Multiple adenomatous polyps (Acute) Chronic idiopathic constipation (Acute) Sleep apnea (Acute) History of kidney disease (Acute) Fibromyalgia (Acute) Osteoarthritis of right knee (Acute) Right rotator cuff tear (Acute) Ascending aorta dilatation (Acute) Dyslipidemia (Acute) Hypothyroidism (Acute) Murmur (Acute) Raynauds disease (Acute) Memory loss (Acute) Lakhani esophagus (Acute) Osteoarthritis of left knee (Acute) Past Medical History Medical History Pre-op examination Bilateral knee pain Postmenopausal Breast cancer Fracture of femoral neck, left Pulmonary nodule Preoperative clearance Early satiety Nausea Right shoulder pain Nausea and vomiting History of breast cancer Skin lesions Screening for lipid disorders Irritable bowel syndrome with constipation Screening for colon cancer Physical exam History of sepsis CKD (chronic kidney disease) CLYDE (obstructive sleep apnea) Clostridium difficile infection Lupus Glaucoma History of kidney disease Sleep apnea Hypothyroidism Closed fracture of neck of left femur Fibromyalgia Family History Family History Father Heart attack Clogged artery (heart) COPD (chronic obstructive pulmonary disease) Mother Stroke Clogged artery (heart) Sister COPD (chronic obstructive pulmonary disease) Brother COPD (chronic obstructive pulmonary disease) Family history of problems with anesthesia: No Surgical History Surgical History History of total right knee replacement H/O shoulder surgery Hx of tonsillectomy History of hip surgery History of esophagogastroduodenoscopy (EGD) H/O colonoscopy History of cholecystectomy History of Problems with Anesthesia: Yes Social History Social History Household Members: None Housing: Apartment Housing Other:: chcf Patient Tobacco Use Status: Never used Tobacco e-Cigarette/Vaping Use: Never Used Second Hand Smoke Exposure: No Use of substances other than those prescribed or required for medical reasons: No Advance Directives: No Advance Directives Information Provided: Yes service: No Current occupational status: retired Gender identity: Female Cognitive needs: No Hearing needs: No Vision needs: No Meds Allergies Allergy/AdvReac Type Severity Reaction Status Date / Time adhesive Allergy Severe Hives Verified 10/26/24 11:16 ondansetron Allergy Unknown ANAPHYLAXIS Verified 10/26/24 11:16 [From ZOFRAN ( HYDROCHLORIDE)] Home Medications ?Medication ?Instructions ?Recorded ?Confirmed ?Last Taken ?Type aspirin 81 mg tablet 81 mg PO DAILY 02/14/23 09/21/24 Unknown History cranberry concentrate-ascorbic 20 cap PO DAILY 05/29/23 09/21/24 Unknown History acid 4,200 mg-20 mg capsule vibegron 75 mg tablet (Gemtesa) 75 mg PO DAILY 03/05/24 09/21/24 Unknown History docusate sodium 100 mg capsule 100 mg PO DAILY 04/28/24 09/21/24 Unknown History (Colace) turmeric root extract 500 mg 500 mg PO DAILY 04/28/24 09/21/24 Unknown History capsule magnesium 50 mg PO DAILY 08/06/24 09/21/24 Unknown History esomeprazole magnesium 40 mg 40 mg PO ONCE 08/11/24 09/21/24 Unknown History capsule,delayed release (Nexium) albuterol sulfate 90 mcg/actuation 90 mcg inhalation DAILY 08/18/24 08/25/24 Unknown History aerosol inhaler Assessment and Plan Assessment Anesthesia Assessment: Chart Reviewed Final Anesthetic Review Family History of Problems with Anesthesia: No History of Problems with Anesthesia: Yes Documented by User: Michael Leon MD 10/26/24 11:31 PENDING SALE TO [facility] Past Medical History Medical History Pre-op examination Bilateral knee pain Postmenopausal Breast cancer Fracture of femoral neck, left Pulmonary nodule Preoperative clearance Early satiety Nausea Right shoulder pain Nausea and vomiting History of breast cancer Skin lesions Screening for lipid disorders Irritable bowel syndrome with constipation Screening for colon cancer Physical exam History of sepsis CKD (chronic kidney disease) CLYDE (obstructive sleep apnea) Clostridium difficile infection Lupus Glaucoma History of kidney disease Sleep apnea Hypothyroidism Closed fracture of neck of left femur Fibromyalgia Family History Family History Father Heart attack Clogged artery (heart) COPD (chronic obstructive pulmonary disease) Mother Stroke Clogged artery (heart) Sister COPD (chronic obstructive pulmonary disease) Brother COPD (chronic obstructive pulmonary disease) Surgical History Surgical History History of total right knee replacement H/O shoulder surgery Hx of tonsillectomy History of hip surgery History of esophagogastroduodenoscopy (EGD) H/O colonoscopy History of cholecystectomy History of Problems with Anesthesia: No Social History Social History Household Members: None Housing: Apartment Housing Other:: chcf Patient Tobacco Use Status: Never used Tobacco e-Cigarette/Vaping Use: Never Used Second Hand Smoke Exposure: No Use of substances other than those prescribed or required for medical reasons: No Advance Directives: No Advance Directives Information Provided: Yes service: No Current occupational status: retired Gender identity: Female Cognitive needs: No Hearing needs: No Vision needs: No Meds Allergies Allergy/AdvReac Type Severity Reaction Status Date / Time adhesive Allergy Severe Hives Verified 10/26/24 11:16 ondansetron Allergy Unknown ANAPHYLAXIS Verified 10/26/24 11:16 [From ZOFRAN ( HYDROCHLORIDE)] Home Medications ?Medication ?Instructions ?Recorded ?Confirmed ?Last Taken ?Type aspirin 81 mg tablet 81 mg PO DAILY 02/14/23 09/21/24 Unknown History cranberry concentrate-ascorbic 20 cap PO DAILY 05/29/23 09/21/24 Unknown History acid 4,200 mg-20 mg capsule vibegron 75 mg tablet (Gemtesa) 75 mg PO DAILY 03/05/24 09/21/24 Unknown History docusate sodium 100 mg capsule 100 mg PO DAILY 04/28/24 09/21/24 Unknown History (Colace) turmeric root extract 500 mg 500 mg PO DAILY 04/28/24 09/21/24 Unknown History capsule magnesium 50 mg PO DAILY 08/06/24 09/21/24 Unknown History esomeprazole magnesium 40 mg 40 mg PO ONCE 08/11/24 09/21/24 Unknown History capsule,delayed release (Nexium) albuterol sulfate 90 mcg/actuation 90 mcg inhalation DAILY 08/18/24 08/25/24 Unknown History aerosol inhaler Exam Airway Mallampati Class: III TM Dist: >3cm Neck ROM: Full Assessment and Plan Assessment Anesthesia Assessment: Anesthesia Plan Discussed Final Anesthetic Review History of Problems with Anesthesia: No NPO: Yes ASA Class: III Final Preanesthetic Review: No Changes in Pt Med Stat, Meds/Allgs Chart Reviewed, Consent Obtained/Reviewed, Anes Risks/Benef Reviewed and DNR Form (If Appl.) Patient Risk: Intermediate Procedure Risk: Low Anesthetic Plan Anesthetic Plan: TIVA Disposition: Standard PACU
--- NOTE | 2024-10-26 10:48 | MHC.SHP ---
Pre-Procedural Eval Section A - 24 Hr Update-Section A only Date of Service: 10/26/24 The patient is an INPATIENT: No The patient has been examined within 24 hours of the surgical procedure. The History & Physical has been completed within 30 days and I have reviewed it.: No Section B - Complete if H&P > 30 days Chief Complaint: FU of gastric polyp with LGD Relevant Family History (Specify if Yes): No Relevant Social History: None Present Medications: see Short Stay Collaborative assessment Medical History: Significant History (Bilateral knee pain Postmenopausal Breast cancer Fracture of femoral neck, left Pulmonary nodule Preoperative clearance Early satiety Nausea Right shoulder pain Nausea and vomiting Pre-op examination History of breast cancer Skin lesions Screening for lipid disorders Irritable bowel syndrome with co) History of Previous Operations: Relevant previous surgery/procedure and date(s) (H/O shoulder surgery Hx of tonsillectomy History of hip surgery History of esophagogastroduodenoscopy (EGD) H/O colonoscopy History of cholecystectomy) Allergies: Allergies Allergy/AdvReac Type Severity Reaction Status Date / Time adhesive Allergy Severe Hives Verified 09/21/24 13:24 ondansetron Allergy Unknown ANAPHYLAXIS Verified 09/21/24 13:24 [From ZOFRAN ( HYDROCHLORIDE)] Review of Systems Sugical H&P ROS: Negative: Constitution, Cardiovascular, Respiratory and Gastrointestinal Exam Surgical H&P Exam: Normal: Heart, Normal: Lungs, Normal: Extremities and Normal: Abdomen Plan Diagnosis/Plan: Unchanged I have reviewed the history and physical and performed a pertinent physical examination on my patient. No changes have occurred unless specified. Time Spent With Patient Time: Total time managing care of this patient today ____ minutes.
[2024-10-26 11:17] VITALS: BMI 33.2
[2024-10-26 11:30] VITALS: BP 162/59; PULSE 65; RESP 16; TEMP 36.9; O2SAT 96
[2024-10-26] MEDS: Lactated Ringers 1,000 ML 100 ML IVCONT (11:38)
--- NOTE | 2024-10-26 11:38 | W.PM.OPN ---
Operative Note Operative Note Date of Service: 10/26/24 Narrative: FLEXIBLE TRANSORAL UPPER GASTROINTESTINAL ENDOSCOPY WITH SNARE POLYPECTOMY, SUBMUCOSAL INJECTION AND HEMOCLIP PLACEMENT Pre-op diagnosis: FU of gastric polyp with LGD Post-op diagnosis: Hiatal hernia, GERD, gastric polyp Endoscopist:Phuc Grigsby MD Anesthesia:?MAC UPPER ENDOSCOPY Consent: Indications for the procedure and potential complications of bleeding, perforation, reaction to medications and missed diagnosis were discussed with the patient and informed consent was obtained. Instrument: Olympus GIF H 190 mid size upper endoscope Monitoring: Vital signs and clinical assessment, continuous EKG monitoring, Pulse oximetry, Carbon Dioxide monitoring and blood pressure monitoring were done throughout the procedure. Procedure: The patient was placed in the left lateral decubitis position and pre-procedure medications were administered and a bite block was placed. The endoscope was inserted into the mouth and advanced under direct vision to the third part of duodenum. A careful inspection was made as the upper endoscope was withdrawn including a retroflexed examination of the proximal stomach; Findings and interventions are described below. Findings: Larynx: Normal Esophagus: GE junction at 32 cms, hiatal hernia 32 to 35 cms. A 1 cms tongue of possible Lakhani's - Biopsies obtained during previous EGD were negative for Lakhani's. No esophagitis Stomach: Multiple 5 -10 mm benign appearing polyps in the gastric body. A 2.5 to 3 cms polyp at 40 cms along the greater curvature containg a hemoclip (placed during previous EGD). Polyp was raised with 14 cc of Eleview and removed piece-meal with a stiff hot snare. Polypectomy site was treated with APC, closed with one hemoclip and marked by Endomark. Moderate diffuse gastric erythema - biopsies obtained during past EGD were negative for H pylori. Grade 3 flap valve on retroflexed examination of the cardia. Duodenum: Normal bulb and descending duodenum Intervention: Snare polypectomy, submucosal injection and hemoclip placement as noted above Impression and Post Procedure Diagnosis: Endoscopy Findings: ESOPHAGUS: Medium sized hiatal hernia STOMACH: A 2.5 to 3 cms polyp at 40 cms along the greater curvature containg a hemoclip (placed during previous EGD). Polyp was raised with 14 cc of Eleview and removed piece-meal with a stiff hot snare. Polypectomy site was treated with APC, closed with one hemoclip and marked by Endomark. DUODENUM: Normal Plan: Pt has a FU appointment on 11/11/24 with Maxine Diaz NP. Repeat EGD in 6 months if biopsies show dysplasia Above findings were reviewed with the patient. BIOPSIES SHOWED: Stomach, polypectomy: Hyperplastic mucosal polyp with low-grade dysplasia and chronic inactive inflammation; no Helicobacter organisms identified. Pt called and biopsy results were reviewed with her. She was advised repeat EGD in 4-6 months to check polypectomy site. Request sent to GI surgical schedulers to schedule a FU EGD
[2024-10-26 12:18] VITALS: BP 160/68; PULSE 70; RESP 18; TEMP 36.1; O2SAT 95
[2024-10-26 12:33] VITALS: BP 164/71; PULSE 65; RESP 18; O2SAT 96
[2024-10-26 12:41] VITALS: BP 165/72; PULSE 66; RESP 18; TEMP 36.4; O2SAT 96
--- OUTSIDE RECORDS SUMMARY | 2024-10-26 15:12 | XMS_ITS | Encounter Summary ---
Author Organization [facility] Address [address] [place] [address] Care Team Providers Care Configuration Management Architect Name Role Phone Baldemar Blackman MD Primary Care Provider Encounter Details Date Type Department Care Team (Late st Contact Info) Description 09/05/2024 Lab Requisition [facility] Lab [address] [place] [address] Baldemar Blackman MD [address] [place] [phone] Encounter for other general examination Social History Tobacco Use Types Packs/Day Years Used Date Smoking Tobacco: Never Assessed Sex and Gender Information Value Date Recorded Sex Assigned at Not on file Gender Identity Not on file Sexual Orientation Not on file documented as of this encounter Plan of Treatment Not on file documented as of this encounter Procedures Procedure Name Priority Date/Time Associated Diagnosis Comments CBC WITH AUTO DIFFERENTIAL Routine 09/05/2024 6:54 AM EST Encounter for other general examination CBC AND DIFFERENTIAL Routine 09/05/2024 6:54 AM EST Encounter for other general examination MAGNESIUM Routine 09/05/2024 6:54 AM EST Encounter for other general examination COMPREHENSIVE METABOLIC PANEL Routine 09/05/2024 6:54 AM EST Encounter for other general examination documented in this encounter Results * (ABNORMAL) CBC auto differential (09/05/2024 6:54 AM EST) WBC 7.4 4.8 - 10.8 K/[facility] LAB HEMETOLOGY METHOD 09/05/2024 11:10 AM EST [facility] LAB RBC 3.80 3.80 - 4.80 M/mcL LAB HEMETOLOGY METHOD 09/05/2024 11:10 AM [facility] LAB Hemoglobin 10.3(L) 11.5 - 16.0 g/dL LAB HEMETOLOGY METHOD 09/05/2024 11:10 AM [facility] LAB Hematocrit 32.8(L) 35.0 - 47.0 % LAB HEMETOLOGY METHOD 09/05/2024 11:10 AM [facility] LAB MCV 86.3 79.0 - 98.0 FL LAB HEMETOLOGY METHOD 09/05/2024 11:10 AM [facility] LAB MCH 27.1 27.0 - 32.0 pcg LAB HEMETOLOGY METHOD 09/05/2024 11:10 AM [facility] LAB MCHC 31.4(L) 32.0 - 37.0 g/dL LAB HEMETOLOGY METHOD 09/05/2024 11:10 AM [facility] LAB RDW 14.8 11.0 - 15.0 % LAB HEMETOLOGY METHOD 09/05/2024 11:10 AM [facility] LAB Platelets 170 130 - 400 K/mcL LAB HEMETOLOGY METHOD 09/05/2024 11:10 AM [facility] LAB MPV 11.0 7.0 - 11.0 FL LAB HEMETOLOGY METHOD 09/05/2024 11:10 AM [facility] LAB NRBC 0.0 <1.0 % LAB HEMETOLOGY METHOD 09/05/2024 11:10 AM [facility] LAB NRBC Absolute 0.00 <0.10 K/mcL LAB HEMETOLOGY METHOD 09/05/2024 11:10 AM [facility] LAB Neutrophils Relative 67.5 % LAB HEMETOLOGY METHOD 09/05/2024 11:10 AM [facility] LAB Lymphocytes Relative 17.1 % LAB HEMETOLOGY METHOD 09/05/2024 11:10 AM [facility] LAB Monocytes Relative 12.2 % LAB HEMETOLOGY METHOD 09/05/2024 11:10 AM EST [facility] LAB Eosinophils Relative 2.7 % LAB HEMETOLOGY METHOD 09/05/2024 11:10 AM [facility] LAB Basophils Relative 0.4 % LAB HEMETOLOGY METHOD 09/05/2024 11:10 AM [facility] LAB Immature Granulocytes Relative 0.1 % LAB HEMETOLOGY METHOD 09/05/2024 11:10 AM [facility] LAB Neutrophils Absolute 4.97 1.50 - 7.00 K/mcL LAB HEMETOLOGY METHOD 09/05/2024 11:10 AM [facility] LAB Lymphocytes Absolute 1.26 1.00 - 5.00 K/mcL LAB HEMETOLOGY METHOD 09/05/2024 11:10 AM [facility] LAB Monocytes Absolute 0.90 0.20 - 1.00 K/mcL LAB HEMETOLOGY METHOD 09/05/2024 11:10 AM EST [facility] LAB Eosinophils Absolute 0.20 0.00 - 0.50 K/mcL LAB HEMETOLOGY METHOD 09/05/2024 11:10 AM [facility] LAB Basophils Absolute 0.03 0.00 - 0.20 K/mcL LAB HEMETOLOGY METHOD 09/05/2024 11:10 AM EST [facility] LAB Immature Granulocytes Absolute 0.01 0.00 - 0.03 K/mcL LAB HEMETOLOGY METHOD 09/05/2024 11:10 AM [facility] LAB Blood Venous blood specimen / Unknown Venipuncture / Unknown 09/05/2024 6:54 AM EST 09/05/2024 9:50 AM EST Baldemar Blackman MD LAB BLOOD ORDERABLES [facility] LAB [address] [place] [address], * (ABNORMAL) Magnesium (09/05/2024 6:54 AM EST) Pathologist [facility] Magnesium 1.8(L) 1.9 - 2.6 mg/dL LAB CHEMISTRY METHOD 09/05/2024 11:31 AM [facility] LAB Blood Venous blood specimen / Unknown Venipuncture / Unknown 09/05/2024 6:54 AM EST 09/05/2024 9:50 AM EST Baldemar Blackman MD LAB BLOOD ORDERABLES [facility] LAB [address] [place] [address], * (ABNORMAL) Comprehensive metabolic panel (09/05/2024 6:54 AM EST) [facility] Sodium 139 133 - 145 mmol/L LAB CHEMISTRY METHOD 09/05/2024 11:31 AM [facility] LAB Potassium 4.4 3.5 - 5.5 mmol/L LAB CHEMISTRY METHOD 09/05/2024 11:31 AM [facility] LAB Chloride 107 96 - 110 mmol/L LAB CHEMISTRY METHOD 09/05/2024 11:31 AM [facility] LAB CO2 25 21 - 32 mmol/L LAB CHEMISTRY METHOD 09/05/2024 11:31 AM [facility] LAB Anion Gap 7 3 - 11 LAB CHEMISTRY METHOD 09/05/2024 11:31 AM [facility] LAB Glucose 85 70 - 100 mg/dL LAB CHEMISTRY METHOD 09/05/2024 11:31 AM [facility] LAB BUN 23 5 - 25 mg/dL LAB CHEMISTRY METHOD 09/05/2024 11:31 AM [facility] LAB Creatinine 0.92 0.50 - 1.10 mg/dL LAB CHEMISTRY METHOD 09/05/2024 11:31 AM [facility] LAB eGFR 65 >=60 mL/min/1. 73m2 LAB CHEMISTRY METHOD 09/05/2024 11:31 AM [facility] LAB Comment:Calculation based on the??Chronic Kidney Disease Epidemiology Collaboration (CKD-EPI) equation refit??without adjustment for race. BUN/Creatinine Ratio 25.0 LAB CHEMISTRY METHOD 09/05/2024 11:31 AM [facility] LAB Calcium 9.3 8.5 - 10.5 mg/dL LAB CHEMISTRY METHOD 09/05/2024 11:31 AM [facility] LAB AST (SGOT) 87(H) 10 - 42 unit/L LAB CHEMISTRY METHOD 09/05/2024 11:31 AM [facility] LAB ALT (SGPT) 98(H) 10 - 60 unit/L LAB CHEMISTRY METHOD 09/05/2024 11:31 AM [facility] LAB Alkaline Phosphatase 305(H) 42 - 121 unit/L LAB CHEMISTRY METHOD 09/05/2024 11:31 AM [facility] LAB Total Protein 4.9(L) 6.0 - 8.0 g/dL LAB CHEMISTRY METHOD 09/05/2024 11:31 AM [facility] LAB Albumin 2.6(L) 3.2 - 5.0 g/dL LAB CHEMISTRY METHOD 09/05/2024 11:31 AM [facility] LAB Total Bilirubin 0.6 0.0 - 1.4 mg/dL LAB CHEMISTRY METHOD 09/05/2024 11:31 AM [facility] LAB Blood Venous blood specimen / Unknown Venipuncture / Unknown 09/05/2024 6:54 AM EST 09/05/2024 9:50 AM EST Baldemar Blackman MD LAB BLOOD ORDERABLES [facility] LAB [address] [place] [address], documented in this encounter Visit Diagnoses Diagnosis Encounter for other general examination documented in this encounter Care Teams Configuration Management Architect Relationship Specialty Start Date End Date Baldemar Blackman MD [address] [place] [id number] PCP - General Internal Medicine 09/14/24 documented as of this encounter
--- OUTSIDE RECORDS SUMMARY | 2024-10-26 15:12 | XMS_ITS | Encounter Summary ---
Author Organization [facility] Address [address] [place] [address] Care Team Providers Care Trimmer Buffing Wheel Name Role Phone Baldemar Blackman MD Primary Care Provider [phone] Encounter Details Date Type Department Care Team (Late st Contact Info) Description 09/14/2024 Lab Requisition [facility] Lab [address] [place] [address] Baldemar Blackman MD [address] [place] [phone] Encounter for other general examination Social History [...] Procedure Name Priority Date/Time Associated Diagnosis Comments COMPLETE BLOOD COUNT Routine 09/14/2024 6:28 AM EST Encounter for other general examination COMPREHENSIVE METABOLIC PANEL Routine 09/14/2024 6:28 AM EST Encounter for other general examination documented in this encounter Results * (ABNORMAL) Complete blood count (09/14/2024 6:28 AM EST) [facility] Signature WBC 7.2 4.8 - 10.8 K/[facility] LAB HEMETOLOGY METHOD 09/14/2024 9:19 AM EST [facility] LAB RBC 3.80 3.80 - 4.80 M/[facility] LAB HEMETOLOGY METHOD 09/14/2024 9:19 AM EST [facility] LAB Hemoglobin 10.2(L) 11.5 - 16.0 g/dL LAB HEMETOLOGY METHOD 09/14/2024 9:19 AM EST [facility] LAB Hematocrit 33.4(L) 35.0 - 47.0 % LAB HEMETOLOGY METHOD 09/14/2024 9:19 AM [facility] LAB MCV 88.8 79.0 - 98.0 FL LAB HEMETOLOGY METHOD 09/14/2024 9:19 AM [facility] LAB MCH 27.1 27.0 - 32.0 pcg LAB HEMETOLOGY METHOD 09/14/2024 9:19 AM EST [facility] LAB MCHC 30.5(L) 32.0 - 37.0 g/dL LAB HEMETOLOGY METHOD 09/14/2024 9:19 AM EST [facility] LAB RDW 14.7 11.0 - 15.0 % LAB HEMETOLOGY METHOD 09/14/2024 9:19 AM [facility] LAB Platelets 352 130 - 400 K/mcL LAB HEMETOLOGY METHOD 09/14/2024 9:19 AM EST [facility] LAB MPV 9.9 7.0 - 11.0 FL LAB HEMETOLOGY METHOD 09/14/2024 9:19 AM EST [facility] LAB NRBC 0.0 <1.0 % LAB HEMETOLOGY METHOD 09/14/2024 9:19 AM [facility] LAB NRBC Absolute 0.00 <0.10 K/mcL LAB HEMETOLOGY METHOD 09/14/2024 9:19 AM EST [facility] LAB Blood Venous blood specimen / Unknown Venipuncture / Unknown 09/14/2024 6:28 AM EST 09/14/2024 8:05 AM EST Baldemar Blackman MD LAB BLOOD ORDERABLES [facility] LAB [address] [place] [address], * (ABNORMAL) Comprehensive metabolic panel (09/14/2024 6:28 AM EST) Sodium 143 133 - 145 mmol/L LAB CHEMISTRY METHOD 09/14/2024 9:52 AM [facility] LAB Potassium 4.7 3.5 - 5.5 mmol/L LAB CHEMISTRY METHOD 09/14/2024 9:52 AM [facility] LAB Chloride 107 96 - 110 mmol/L LAB CHEMISTRY METHOD 09/14/2024 9:52 AM [facility] LAB CO2 28 21 - 32 mmol/L LAB CHEMISTRY METHOD 09/14/2024 9:52 AM [facility] LAB Anion Gap 8 3 - 11 LAB CHEMISTRY METHOD 09/14/2024 9:52 AM [facility] LAB Glucose 89 70 - 100 mg/dL LAB CHEMISTRY METHOD 09/14/2024 9:52 AM [facility] LAB BUN 23 5 - 25 mg/dL LAB CHEMISTRY METHOD 09/14/2024 9:52 AM [facility] LAB Creatinine 1.07 0.50 - 1.10 mg/dL LAB CHEMISTRY METHOD 09/14/2024 9:52 AM [facility] LAB eGFR 54(L) >=60 mL/min/1. 73m2 LAB CHEMISTRY METHOD 09/14/2024 9:52 AM [facility] LAB Comment:Calculation based on the??Chronic Kidney Disease Epidemiology Collaboration (CKD-EPI) equation refit??without adjustment for race. BUN/Creatinine Ratio 21.5 LAB CHEMISTRY METHOD 09/14/2024 9:52 AM [facility] LAB Calcium 9.6 8.5 - 10.5 mg/dL LAB CHEMISTRY METHOD 09/14/2024 9:52 AM [facility] LAB AST (SGOT) 28 10 - 42 unit/L LAB CHEMISTRY METHOD 09/14/2024 9:52 AM [facility] LAB ALT (SGPT) 68(H) 10 - 60 unit/L LAB CHEMISTRY METHOD 09/14/2024 9:52 AM EST [facility] LAB Alkaline Phosphatase 232(H) 42 - 121 unit/L LAB CHEMISTRY METHOD 09/14/2024 9:52 AM [facility] LAB Total Protein 5.0(L) 6.0 - 8.0 g/dL LAB CHEMISTRY METHOD 09/14/2024 9:52 AM [facility] LAB Albumin 2.8(L) 3.2 - 5.0 g/dL LAB CHEMISTRY METHOD 09/14/2024 9:52 AM [facility] LAB Total Bilirubin 0.4 0.0 - 1.4 mg/dL LAB CHEMISTRY METHOD 09/14/2024 9:52 AM [facility] LAB Blood Venous blood specimen / Unknown Venipuncture / Unknown 09/14/2024 6:28 AM EST 09/14/2024 8:05 AM EST Baldemar Blackman MD LAB BLOOD ORDERABLES Performing Organization Address [facility] Co de Phone Number [facility] LAB [address] [place] [address], documented in this encounter Visit Diagnoses Diagnosis Encounter for other general examination documented in this encounter Care Teams Trimmer Buffing Wheel Relationship Specialty Start Date End Date Baldemar Blackman MD [address] [place] [phone] PCP - General Internal Medicine 09/14/24 documented as of this encounter
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
--- OUTSIDE RECORDS SUMMARY | 2024-10-26 15:12 | XMS_ITS | Clinical Summary ---
Author Organization [facility] Address [address] [place] [address] Care Team Providers Care Barkeeper Name Role Phone Dina Wall Primary Care Provider [phone] Medications No known medications Social History Tobacco Use Types Packs/Day Years Used Date Smoking Tobacco: Never Alcohol Use Standard Drinks/Week Comments Not Asked 0 (1 standard drink = 0.6 oz pur e alcohol) Comments Unknown Sex and Gender Information Value Date Recorded Sex Assigned at Not on file Legal Sex Female 2:58 PM EDT Gender Identity Not on file Sexual Orientation Not on file Last Filed Vital Signs Vital Sign Reading Time Taken Comments Blood Pressure - - Pulse - - Temperature 36.2 ??C (97.1 ??F) 01/13/2013 10:20 AM E DT Respiratory Rate - - Oxygen Saturation - - Inhaled Oxygen Concentration - - Weight 98.4 kg (217 lb) 01/13/2013 10:20 AM EDT Height 165.1 cm (5' 5 ) 01/13/2013 10:20 AM EDT Body Mass Index 36.11 01/13/2013 10:20 AM EDT Plan of Treatment Health Maintenance Due Date Last Done Comments Hepatitis C Screening 1950 DTaP/Tdap/Td (1 - Tdap) 1966 Pneumococcal 50+ years (1 of 1 - PCV) 1998 Zoster (Shingrix) (1 of 2) 1998 Bone Density 2013 RSV (1 - 1-dose 75+ series) 2023 COVID-19 Vaccine ( - 2023-2 5 season) 2024 Influenza (#1) 2024 HPV Vaccine Aged Out No longer eligi ble based on patient's age to complete this topic Hep A Aged Out No longer eligi ble based on patient's age to complete this topic Hep B Aged Out No longer eligi ble based on patient's age to complete this topic Hib Aged Out No longer eligi ble based on patient's age to complete this topic Mammogram/Breast Imaging Discontinued Meningococcal ACWY Aged Out No longer eligible based on patient's age to complete this topic Pap Smear Discontinued Zoster (Zostavax) Discontinued Insurance FFS Care Teams Barkeeper Relationship Specialty Start Date End Date Dina Wall [facility] [address] [place] [phone] PCP - General Internal Medicine 12/18/12
--- OUTSIDE RECORDS SUMMARY | 2024-10-26 15:12 | XMS_ITS | Clinical Summary ---
Author Organization 299 [facility] Address [address] [place] [address] Phone Care Team Providers Care Supervisor Refining Name Role Phone Baldemar Blackman MD Primary Care Provider [phone] Encounters Date Type Department Care Team Description 09/14/2024 Lab Requisition [facility] Lab [address] [place] [phone] Baldemar Blackman MD Encounter for other general examination 09/10/2024 Lab Requisition [facility] Lab [address] [place] [phone] Baldemar Blackman MD Encounter for other general examination 09/05/2024 Lab Requisition [facility] Lab [address] [place] [phone] Baldemar Blackman MD Encounter for other general examination from Last 3 Months Social History Tobacco Use Types Packs/Day Years Used Date Smoking Tobacco: Never Assessed Sex and Gender Information Value Date Recorded Sex Assigned at Not on file Gender Identity Not on file Sexual Orientation Not on file Plan of Treatment Health Maintenance Due Date Last Done Comments DTaP,Tdap,and Td Vaccines (1 - Tdap) 1967 Zoster Vaccines (1 of 2) 1998 Pneumococcal Vaccine: 65+ Ye ars (1 of 1 - PCV) 2013 RSV Immunization Patients 60 + Years Old (1 - 1-dose 75+ series) 2023 Cholesterol Screening (Lipid Panel) 10/24/2023 Depression Screening 10/24/2023 Falls Risk Assessment 10/24/2023 Hepatitis C Screening 10/24/2023 Osteoporosis Screening (Bone Density Screening) 10/24/2023 Social Influencers of Health Screening 10/24/2023 COVID-19 Vaccine ( - 2023-2 5 season) 2024 Influenza Vaccine (#1) 2024 HIB Vaccines Aged Out No longer eligi ble based on patient's age to complete this topic HPV Vaccines Aged Out No longer eligi ble based on patient's age to complete this topic Hepatitis A Vaccines Aged Out No long er eligible based on patient's age to complete this topic Hepatitis B Vaccines Aged Out No long er eligible based on patient's age to complete this topic IPV Vaccines Aged Out No longer eligi ble based on patient's age to complete this topic MMR Vaccines Aged Out No longer eligi ble based on patient's age to complete this topic Meningococcal ACWY Vaccine Aged Out N o longer eligible based on patient's age to complete this topic RSV Immunization Patients Un alan 20 months Aged Out No longer eligible b ased on patient's age to complete this topic Varicella Vaccines Aged Out No longer eligible based on patient's age to complete this topic Procedures Procedure Name Priority Date/Time Associated Diagnosis Comments COMPLETE BLOOD COUNT Routine 09/14/2024 6:28 AM EST Encounter for other general examination COMPREHENSIVE METABOLIC PANEL Routine 09/14/2024 6:28 AM EST Encounter for other general examination COMPLETE BLOOD COUNT Routine 09/10/2024 5:58 AM EST Encounter for other general examination BASIC METABOLIC PANEL Routine 09/10/2024 5:58 AM EST Encounter for other general examination CBC WITH AUTO DIFFERENTIAL Routine 09/05/2024 6:54 AM EST Encounter for other general examination MAGNESIUM Routine 09/05/2024 6:54 AM EST Encounter for other general examination CBC AND DIFFERENTIAL Routine 09/05/2024 6:54 AM EST Encounter for other general examination COMPREHENSIVE METABOLIC PANEL Routine 09/05/2024 6:54 AM EST Encounter for other general examination from Last 3 Months Results * (ABNORMAL) Complete blood count (09/14/2024 6:28 AM EST) Only the most recent of2 resultswithin the time period is included. [facility] WBC 7.2 4.8 - 10.8 K/mcL LAB HEMETOLOGY METHOD 09/14/2024 9:19 AM [facility] RBC 3.80 3.80 - 4.80 M/mcL LAB HEMETOLOGY METHOD 09/14/2024 9:19 AM [facility] Hemoglobin 10.2(L) 11.5 - 16.0 g/dL LAB HEMETOLOGY METHOD 09/14/2024 9:19 AM [facility] Hematocrit 33.4(L) 35.0 - 47.0 % LAB HEMETOLOGY METHOD 09/14/2024 9:19 AM [facility] MCV 88.8 79.0 - 98.0 FL LAB HEMETOLOGY METHOD 09/14/2024 9:19 AM [facility] MCH 27.1 27.0 - 32.0 pcg LAB HEMETOLOGY METHOD 09/14/2024 9:19 AM [facility] MCHC 30.5(L) 32.0 - 37.0 g/dL LAB HEMETOLOGY METHOD 09/14/2024 9:19 AM [facility] RDW 14.7 11.0 - 15.0 % LAB HEMETOLOGY METHOD 09/14/2024 9:19 AM [facility] Platelets 352 130 - 400 K/mcL LAB HEMETOLOGY METHOD 09/14/2024 9:19 AM [facility] MPV 9.9 7.0 - 11.0 FL LAB HEMETOLOGY METHOD 09/14/2024 9:19 AM [facility] NRBC 0.0 <1.0 % LAB HEMETOLOGY METHOD 09/14/2024 9:19 AM [facility] NRBC Absolute 0.00 <0.10 K/mcL LAB HEMETOLOGY METHOD 09/14/2024 9:19 AM [facility] Blood Venous blood specimen / Unknown Venipuncture / Unknown 09/14/2024 6:28 AM EST 09/14/2024 8:05 AM EST Baldemar Blackman MD LAB BLOOD ORDERABLES [facility] [address] [place] [address], * (ABNORMAL) Comprehensive metabolic panel (09/14/2024 6:28 AM EST) Only the most recent of2 resultswithin the time period is included. Sodium 143 133 - 145 mmol/L LAB CHEMISTRY METHOD 09/14/2024 9:52 AM [facility] Potassium 4.7 3.5 - 5.5 mmol/L LAB CHEMISTRY METHOD 09/14/2024 9:52 AM [facility] Chloride 107 96 - 110 mmol/L LAB CHEMISTRY METHOD 09/14/2024 9:52 AM [facility] CO2 28 21 - 32 mmol/L LAB CHEMISTRY METHOD 09/14/2024 9:52 AM [facility] Anion Gap 8 3 - 11 LAB CHEMISTRY METHOD 09/14/2024 9:52 AM [facility] Glucose 89 70 - 100 mg/dL LAB CHEMISTRY METHOD 09/14/2024 9:52 AM [facility] BUN 23 5 - 25 mg/dL LAB CHEMISTRY METHOD 09/14/2024 9:52 AM [facility] Creatinine 1.07 0.50 - 1.10 mg/dL LAB CHEMISTRY METHOD 09/14/2024 9:52 AM [facility] eGFR 54(L) >=60 mL/min/1. 73m2 LAB CHEMISTRY METHOD 09/14/2024 9:52 AM [facility] Comment:Calculation based on the??Chronic Kidney Disease Epidemiology Collaboration (CKD-EPI) equation refit??without adjustment for race. BUN/Creatinine Ratio 21.5 LAB CHEMISTRY METHOD 09/14/2024 9:52 AM [facility] Calcium 9.6 8.5 - 10.5 mg/dL LAB CHEMISTRY METHOD 09/14/2024 9:52 AM [facility] AST (SGOT) 28 10 - 42 unit/L LAB CHEMISTRY METHOD 09/14/2024 9:52 AM [facility] ALT (SGPT) 68(H) 10 - 60 unit/L LAB CHEMISTRY METHOD 09/14/2024 9:52 AM [facility] Alkaline Phosphatase 232(H) 42 - 121 unit/L LAB CHEMISTRY METHOD 09/14/2024 9:52 AM [facility] Total Protein 5.0(L) 6.0 - 8.0 g/dL LAB CHEMISTRY METHOD 09/14/2024 9:52 AM [facility] Albumin 2.8(L) 3.2 - 5.0 g/dL LAB CHEMISTRY METHOD 09/14/2024 9:52 AM [facility] Total Bilirubin 0.4 0.0 - 1.4 mg/dL LAB CHEMISTRY METHOD 09/14/2024 9:52 AM [facility] Blood Venous blood specimen / Unknown Venipuncture / Unknown 09/14/2024 6:28 AM EST 09/14/2024 8:05 AM EST Baldemar Blackman MD LAB BLOOD ORDERABLES [facility] [address] [place] [address], * (ABNORMAL) Basic metabolic panel (09/10/2024 5:58 AM EST) Sodium 140 133 - 145 mmol/L LAB CHEMISTRY METHOD 09/10/2024 9:26 AM [facility] Potassium 4.4 3.5 - 5.5 mmol/L LAB CHEMISTRY METHOD 09/10/2024 9:26 AM [facility] Chloride 107 96 - 110 mmol/L LAB CHEMISTRY METHOD 09/10/2024 9:26 AM [facility] CO2 30 21 - 32 mmol/L LAB CHEMISTRY METHOD 09/10/2024 9:26 AM [facility] Anion Gap 3 3 - 11 LAB CHEMISTRY METHOD 09/10/2024 9:26 AM [facility] Glucose 85 70 - 100 mg/dL LAB CHEMISTRY METHOD 09/10/2024 9:26 AM [facility] BUN 23 5 - 25 mg/dL LAB CHEMISTRY METHOD 09/10/2024 9:26 AM [facility] Creatinine 1.09 0.50 - 1.10 mg/dL LAB CHEMISTRY METHOD 09/10/2024 9:26 AM [facility] eGFR 53(L) >=60 mL/min/1. 73m2 LAB CHEMISTRY METHOD 09/10/2024 9:26 AM [facility] Comment:Calculation based on the??Chronic Kidney Disease Epidemiology Collaboration (CKD-EPI) equation refit??without adjustment for race. BUN/Creatinine Ratio 21.1 LAB CHEMISTRY METHOD 09/10/2024 9:26 AM [facility] Calcium 9.3 8.5 - 10.5 mg/dL LAB CHEMISTRY METHOD 09/10/2024 9:26 AM [facility] Blood Venous blood specimen / Unknown Venipuncture / Unknown 09/10/2024 5:58 AM EST 09/10/2024 8:24 AM EST Baldemar Blackman MD LAB BLOOD ORDERABLES [facility] [address] [place] [address], * (ABNORMAL) CBC auto differential (09/05/2024 6:54 AM EST) [facility] WBC 7.4 4.8 - 10.8 K/mcL LAB HEMETOLOGY METHOD 09/05/2024 11:10 AM [facility] RBC 3.80 3.80 - 4.80 M/mcL LAB HEMETOLOGY METHOD 09/05/2024 11:10 AM [facility] Hemoglobin 10.3(L) 11.5 - 16.0 g/dL LAB HEMETOLOGY METHOD 09/05/2024 11:10 AM [facility] Hematocrit 32.8(L) 35.0 - 47.0 % LAB HEMETOLOGY METHOD 09/05/2024 11:10 AM [facility] MCV 86.3 79.0 - 98.0 FL LAB HEMETOLOGY METHOD 09/05/2024 11:10 AM [facility] MCH 27.1 27.0 - 32.0 pcg LAB HEMETOLOGY METHOD 09/05/2024 11:10 AM [facility] MCHC 31.4(L) 32.0 - 37.0 g/dL LAB HEMETOLOGY METHOD 09/05/2024 11:10 AM [facility] RDW 14.8 11.0 - 15.0 % LAB HEMETOLOGY METHOD 09/05/2024 11:10 AM [facility] Platelets 170 130 - 400 K/mcL LAB HEMETOLOGY METHOD 09/05/2024 11:10 AM [facility] MPV 11.0 7.0 - 11.0 FL LAB HEMETOLOGY METHOD 09/05/2024 11:10 AM [facility] NRBC 0.0 <1.0 % LAB HEMETOLOGY METHOD 09/05/2024 11:10 AM [facility] NRBC Absolute 0.00 <0.10 K/mcL LAB HEMETOLOGY METHOD 09/05/2024 11:10 AM [facility] Neutrophils Relative 67.5 % LAB HEMETOLOGY METHOD 09/05/2024 11:10 AM [facility] Lymphocytes Relative 17.1 % LAB HEMETOLOGY METHOD 09/05/2024 11:10 AM [facility] Monocytes Relative 12.2 % LAB HEMETOLOGY METHOD 09/05/2024 11:10 AM [facility] Eosinophils Relative 2.7 % LAB HEMETOLOGY METHOD 09/05/2024 11:10 AM [facility] Basophils Relative 0.4 % LAB HEMETOLOGY METHOD 09/05/2024 11:10 AM [facility] Immature Granulocytes Relative 0.1 % LAB HEMETOLOGY METHOD 09/05/2024 11:10 AM [facility] Neutrophils Absolute 4.97 1.50 - 7.00 K/mcL LAB HEMETOLOGY METHOD 09/05/2024 11:10 AM [facility] Lymphocytes Absolute 1.26 1.00 - 5.00 K/mcL LAB HEMETOLOGY METHOD 09/05/2024 11:10 AM [facility] Monocytes Absolute 0.90 0.20 - 1.00 K/mcL LAB HEMETOLOGY METHOD 09/05/2024 11:10 AM [facility] Eosinophils Absolute 0.20 0.00 - 0.50 K/mcL LAB HEMETOLOGY METHOD 09/05/2024 11:10 AM [facility] Basophils Absolute 0.03 0.00 - 0.20 K/mcL LAB HEMETOLOGY METHOD 09/05/2024 11:10 AM [facility] Immature Granulocytes Absolute 0.01 0.00 - 0.03 K/mcL LAB HEMETOLOGY METHOD 09/05/2024 11:10 AM [facility] Blood Venous blood specimen / Unknown Venipuncture / Unknown 09/05/2024 6:54 AM EST 09/05/2024 9:50 AM EST Baldemar Blackman MD LAB BLOOD ORDERABLES Performing Organization Address City/[facility]/ZIP Co de Phone Number [facility] [address] [place] [address], * (ABNORMAL) Magnesium (09/05/2024 6:54 AM EST) Magnesium 1.8(L) 1.9 - 2.6 mg/dL LAB CHEMISTRY METHOD 09/05/2024 11:31 AM EST [facility] Blood Venous blood specimen / Unknown Venipuncture / Unknown 09/05/2024 6:54 AM EST 09/05/2024 9:50 AM EST Baldemar Blackman MD LAB BLOOD ORDERABLES Performing Organization Address City/[facility]/ZIP Co de Phone Number [facility] [address] [place] [address], from Last 3 Months Care Teams Supervisor Refining Relationship Specialty Start Date End Date Baldemar Blackman MD [address] [place] [id number] PCP - General Internal Medicine 09/14/24
--- OUTSIDE RECORDS SUMMARY | 2024-10-26 15:12 | XMS_ITS | Encounter Summary ---
Author Organization [facility] Address [address] [place] [address] Care Team Providers Care Probate Judge Name Role Phone Baldemar Blackman MD Primary Care Provider Encounter Details Date Type Department Care Team (Late st Contact Info) Description 09/10/2024 Lab Requisition [facility] [address] [place] [address] Baldemar Blackman MD [address] [place] [address] Encounter for other general examination Social History [...] Associated Diagnosis Comments COMPLETE BLOOD COUNT Routine 09/10/2024 5:58 AM EST Encounter for other general examination BASIC METABOLIC PANEL Routine 09/10/2024 5:58 AM EST Encounter for other general examination documented in this encounter Results * (ABNORMAL) Complete blood count (09/10/2024 5:58 AM EST) WBC 6.3 4.8 - 10.8 K/[facility] LAB HEMETOLOGY METHOD 09/10/2024 9:11 AM EST [facility] LAB RBC 3.60(L) 3.80 - 4.80 M/[facility] LAB HEMETOLOGY METHOD 09/10/2024 9:11 AM EST [facility] LAB Hemoglobin 9.7(L) 11.5 - 16.0 g/dL LAB HEMETOLOGY METHOD 09/10/2024 9:11 AM EST [facility] LAB Hematocrit 31.3(L) 35.0 - 47.0 % LAB HEMETOLOGY METHOD 09/10/2024 9:11 AM [facility] LAB MCV 88.2 79.0 - 98.0 FL LAB HEMETOLOGY METHOD 09/10/2024 9:11 AM [facility] LAB MCH 27.3 27.0 - 32.0 pcg LAB HEMETOLOGY METHOD 09/10/2024 9:11 AM EST [facility] LAB MCHC 31.0(L) 32.0 - 37.0 g/dL LAB HEMETOLOGY METHOD 09/10/2024 9:11 AM [facility] LAB RDW 14.4 11.0 - 15.0 % LAB HEMETOLOGY METHOD 09/10/2024 9:11 AM [facility] LAB Platelets 273 130 - 400 K/mcL LAB HEMETOLOGY METHOD 09/10/2024 9:11 AM EST [facility] LAB MPV 10.3 7.0 - 11.0 FL LAB HEMETOLOGY METHOD 09/10/2024 9:11 AM [facility] LAB NRBC 0.0 <1.0 % LAB HEMETOLOGY METHOD 09/10/2024 9:11 AM [facility] LAB NRBC Absolute 0.00 <0.10 K/mcL LAB HEMETOLOGY METHOD 09/10/2024 9:11 AM [facility] LAB Blood Venous blood specimen / Unknown Venipuncture / Unknown 09/10/2024 5:58 AM EST 09/10/2024 8:24 AM EST Baldemar Blackman MD LAB BLOOD ORDERABLES [facility] [address] [place] [address], * (ABNORMAL) Basic metabolic panel (09/10/2024 5:58 AM EST) Sodium 140 133 - 145 mmol/L LAB CHEMISTRY METHOD 09/10/2024 9:26 AM [facility] Potassium 4.4 3.5 - 5.5 mmol/L LAB CHEMISTRY METHOD 09/10/2024 9:26 AM [facility] LAB Chloride 107 96 - 110 mmol/L LAB CHEMISTRY METHOD 09/10/2024 9:26 AM [facility] CO2 30 21 - 32 mmol/L LAB CHEMISTRY METHOD 09/10/2024 9:26 AM [facility] LAB Anion Gap 3 3 - 11 LAB CHEMISTRY METHOD 09/10/2024 9:26 AM [facility] LAB Glucose 85 70 - 100 mg/dL LAB CHEMISTRY METHOD 09/10/2024 9:26 AM [facility] BUN 23 5 - 25 mg/dL LAB CHEMISTRY METHOD 09/10/2024 9:26 AM [facility] LAB Creatinine 1.09 0.50 - 1.10 mg/dL LAB CHEMISTRY METHOD 09/10/2024 9:26 AM [facility] LAB eGFR 53(L) >=60 mL/min/1. 73m2 LAB CHEMISTRY METHOD 09/10/2024 9:26 AM [facility] LAB Comment:Calculation based on the??Chronic Kidney Disease Epidemiology Collaboration (CKD-EPI) equation refit??without adjustment for race. BUN/Creatinine Ratio 21.1 LAB CHEMISTRY METHOD 09/10/2024 9:26 AM [facility] Calcium 9.3 8.5 - 10.5 mg/dL LAB CHEMISTRY METHOD 09/10/2024 9:26 AM [facility] Blood Venous blood specimen / Unknown Venipuncture / Unknown 09/10/2024 5:58 AM EST 09/10/2024 8:24 AM EST Baldemar Blackman MD LAB BLOOD ORDERABLES [facility] [address] [place] [address], documented in this encounter Visit Diagnoses Diagnosis Encounter for other general examination documented in this encounter Care Teams Probate Judge Relationship Specialty Start Date End Date Baldemar Blackman MD [address] [place] [id number] PCP - General Internal Medicine 09/14/24 documented as of this encounter
== END 2024-10-26 13:27 | disposition home or self-care (01) ==
PROVIDERS: PCP Nurse Practitioner Family; Visit Provider Internal Medicine Gastroenterology
PROC: 0DJ08ZZ Inspection of Upper Intestinal Tract, Via Natural or Artificial Opening Endoscopic (ICD-10-PCS; CPT 43235; principal; 2024-10-26 11:50)
DX: K31.7 Polyp of stomach and duodenum (principal); Q40.3 Congenital malformation of stomach, unspecified; K22.70 Barrett's esophagus without dysplasia; K21.9 Gastro-esophageal reflux disease without esophagitis; K44.9 Diaphragmatic hernia without obstruction or gangrene; K30 Functional dyspepsia; R68.81 Early satiety; R11.2 Nausea with vomiting, unspecified; K58.1 Irritable bowel syndrome with constipation; N18.9 Chronic kidney disease, unspecified; M32.9 Systemic lupus erythematosus, unspecified; M79.7 Fibromyalgia; R91.1 Solitary pulmonary nodule; H40.9 Unspecified glaucoma; Z85.3 Personal history of malignant neoplasm of breast; E03.9 Hypothyroidism, unspecified; R53.83 Other fatigue; G47.33 Obstructive sleep apnea (adult) (pediatric); Z79.82 Long term (current) use of aspirin; Z79.899 Other long term (current) drug therapy; Z88.8 Allergy status to other drugs, medicaments and biological substances; Z90.49 Acquired absence of other specified parts of digestive tract; Z98.890 Other specified postprocedural states; Z96.651 Presence of right artificial knee joint; L23.1 Allergic contact dermatitis due to adhesives
CPT/HCPCS: 43251; 43236; 88305; 88313; 88342; J2003; J2704

== ENCOUNTER → 2024-10-26 10:28 | Outpatient (BNV) | payer MEDICARE, SELFPAY | PROVIDERS: PCP Nurse Practitioner Family; Visit Provider Internal Medicine Gastroenterology | DX: K31.7 Polyp of stomach and duodenum (principal); K21.9 Gastro-esophageal reflux disease without esophagitis | CPT/HCPCS: 43236; 43251 ==

== ENCOUNTER → 2024-11-10 08:15 | Outpatient (BNV) | payer MEDICARE, SELFPAY | PROVIDERS: PCP Nurse Practitioner Family; Visit Provider Radiology Diagnostic Radiology | DX: E28.39 Other primary ovarian failure (principal) | CPT/HCPCS: 77081 ==

== ENCOUNTER 2024-11-10 08:18 | Outpatient (REF) | payer MEDICARE, SELFPAY ==
--- NOTE | ~2024-11-10 | MM_ITS ---
EXAMINATION: DXA BONE DENSITY EXTREMITY HISTORY: Estrogen deficiency TECHNIQUE: [employer] Dual energy absorptiometry (DEXA) of the lumbar spine, distal radius, total right hip, and femoral neck was performed. COMPARISON: There are no prior studies for comparison. FINDINGS: The bone mineral density of the lumbar spine is 1.108 with a T-score of -0.6, and a Z-score of 0.2. The bone mineral density of the right total hip is 0.652 with a T-score of -2.8, and a Z-score of -1.8. The bone mineral density of the right femoral neck is 0.645 with a T-score of -2.8, and a Z-score of -1.5. The bone mineral density of the distal radius is 0.665 with a T-score of -2.4, and a Z-score of 0.0. MM/XR DEXA appendicular skeleton IMPRESSION: Based on bone mineral density, and according to World Health Organization (WHO) criteria, the diagnosis is consistent with osteoporosis. All bone density values are in grams per centimeter squared (g/cm2). Statistically, 68% of repeat scans fall within 1 SD (+/- 0.010 g/cm2 for AP spine L1-L4) and 1 SD (+/- 0.012 g/cm2 for femur total) FRAX is a trademark of the [employer]'s [place] for Metabolic Bone Disease, a World Health Organization (WHO) Collaborating Center. Electronically signed by: David Shaw MD 11/10/2024 03:41 PM [facility]
--- OUTSIDE RECORDS SUMMARY | 2024-11-10 08:33 | XMS_ITS | Continuity of Care Document ---
Author Organization [facility] Address [address] [place] [address]- Care Team Providers Care Breastfeeding Program Coordinator Name Role Phone Tushar Arroyo NP Primary Care Physician Encounter [facility] Date(s): 10/06/24 - 11/05/24 [facility] [address] [place], [place] [address] Attending Physician: Ronald Unger Admitting Physician: Ronald Unger Referring Physician: Ronald Unger Encounter Type: Triage Allergies, Adverse Reactions, Alerts Substance Criticality Severity Reaction Reaction Severity Status Zofran Throat swelling Acti ve Adhesive Bandage Act carlos eduardo Latex Blisters Active Problem List Condition Confirmation Course Effective Dates Status H ealth Status Informant Atrophic vaginitis Confirmed Active Barretts esophagus Confirmed Active Chronic kidney disease stage 3A Confirmed 04/09/19 Active Rectocele Confirmed Active Fibromyalgia Confirmed Active History of breast cancer, Right side. in 2008, s/p Lumpectomies, Chemo and radiation Rx Confirmed Active Hyperlipidemia Confirmed 07/04/16 Active Hypothyroidism Confirmed Active Mixed incontinence Confirmed Active Nephjaimeithiasis Confirmed Active Depression with anxiety Confirmed Active Osteopenia Confirmed Active Adenomatous polyp Confirmed Active Severe obesity (BMI 35.0-39.9) with comorbidity Confirmed Active SLE (systemic lupus erythematosus) Confirmed Active Urinary incontinence Confirmed Active Social History Social History Type Response Smoking Status Never (less than 100 in lifetime) entered on: 09/26/22 Sex Sex Representation Female (finding) Patient Care team information Care Team Personnel Name: Pooja Li RN Position: S RN Member Role: Primary Care Nurse Name: Tushar Arroyo NP Position: Reference Physician Member Role: PCP Address: [address] [place] [phone]- Telecom: Name: Hillary [place] RN Position: S RN Member Role: Primary Care Nurse Name: Evie Watts RN Position: S RN Member Role: Primary Care Nurse Name: Fatmata Shaw RN Position: S RN Member Role: Primary Care Nurse Name: Elsy Anton RN Position: S RN Member Role: Primary Care Nurse Care Team Related Persons Name: CHRISTOS WILDE Insurance Providers Guarantor name: SHAHZAD IBARRA Health Plan Information #: 1 Payer: MEDICARE PART B OUTPT Member Number: NA Policy Number: NA Group Number: NA Health Plan Information #: 2 Payer: MEDEX Member Number: NA Policy Number: NA Group Number: NA
--- OUTSIDE RECORDS SUMMARY | 2024-11-10 08:33 | XMS_ITS | Continuity of Care Document ---
Author Organization [facility] Address [address] [place] [address]- Care Team Providers Care Spider Assembler Name Role Phone Tushar Arroyo NP Primary Care Physician Encounter [facility] Date(s): 10/06/24 - 11/05/24 [facility] [address] [place], [place] [address] Attending Physician: Ronald Unger Admitting Physician: Ronald [...] Position: Reference Physician Member Role: PCP Address: [address] [place] [phone]- Telecom: Name: Hillary [place] RN Position: S [...]
== END 2024-11-10 08:19 | disposition home or self-care (01) ==
LOC: HO.MAMMO 08:18
PROVIDERS: PCP Nurse Practitioner Family; Visit Provider Nurse Practitioner
DX: M81.0 Age-related osteoporosis without current pathological fracture (principal); E21.3 Hyperparathyroidism, unspecified
CPT/HCPCS: 77081

== ENCOUNTER 2024-12-01 14:00 | Outpatient (RCR) | payer MEDICARE, SELFPAY | END 2025-01-01 08:44 | disposition home or self-care (01) | LOC: HO.PTCHIC 14:00 | PROVIDERS: PCP Nurse Practitioner Family; Visit Provider Physician Assistant | DX: Z47.1 Aftercare following joint replacement surgery (principal); Z96.651 Presence of right artificial knee joint | CPT/HCPCS: 97110; 97140; 97162 ==

== ENCOUNTER 2024-12-03 15:00 | Outpatient (AMB) | payer MEDICARE, SELFPAY ==
--- NOTE | 2024-12-03 15:09 | A.OFFPC_ITS ---
Vital Signs 12/03/24 15:10 Height 5 ft 6 in Weight 212 lb 2 oz BMI 34.2 BP 132/60 Blood Pressure Location Lt brachial Position Sitting Respiration 16 Pulse 61 Pulse Source Pulse Oximeter Pulse Oximetry (%) 96 Oxygen Delivery Method Room Air Intake Visit Reasons: 4 month follow up Allergies adhesive Allergy (Severe, Verified 12/03/24 15:10) Hives ondansetron [From ZOFRAN ( HYDROCHLORIDE)] Allergy (Unknown, Verified 12/03/24 15:10) ANAPHYLAXIS Medication List - Last Reconciled 12/03/24 by Tushar Arroyo, [facility] albuterol sulfate 90 mcg/actuation 90 mcg inhalation DAILY aspirin 81 mg PO DAILY atorvastatin 20 mg PO BEDTIME cholecalciferol (vitamin D3) 25 mcg PO DAILY clonazepam 0.5 mg PO TID PRN 30 days cranberry conc-ascorbic acid 4,200-20 mg 20 caps PO DAILY docusate sodium (Colace) 100 mg PO DAILY esomeprazole magnesium (Nexium) 40 mg PO ONCE fluticasone furoate-vilanterol 100-25 mcg/dose (Breo Ellipta) 1 inh inhalation DAILY gabapentin 300 mg orally; 1 tab in the am, 2 tabs at bedtime 30 days levothyroxine 88 mcg PO DAILY [magnesium 50 mg PO DAILY] sennosides (Senna Laxative) 25.8 mg (3 x 8.6 mg) PO BEDTIME trazodone 100 mg PO BEDTIME turmeric root extract 500 mg PO DAILY vibegron (Gemtesa) 75 mg PO DAILY Tobacco use date assessed: 12/03/24 Fall risk assessment: No Falls in past year Last assessed Fall Risk: 12/03/24 Dental Screening Dental Screen Date: 12/03/24 Did you have a dental visit in the last 12 months?: Yes Did you have a dental problem in the last 6 months where you did not have access to dental care?: No Was dental information given to patient?: Patient has dentist HPI 4 month follow up HPI Details Chief Complaint The patient reports persistent right knee pain. History of Present Illness The patient is a 74-year-old female presenting with persistent right knee pain following a knee procedure performed approximately 3 months prior. She describes the pain as severe and burning, noting swelling and warmth in the affected area. Despite clear X-ray results, her pain persists, impacting her sleep and daily living activities. The use of gabapentin offers some relief, but her quality of life remains compromised. She is actively participating in physical therapy and following prescribed exercises at home, although she notes minimal improvement. The situation is contributing to her depressive symptoms. Additionally, the patient is morbidly obese and is being referred for weight management, with forthcoming follow-up with her surgeon for further evaluation. Social History - The patient is participating in physic al therapy and home exercises for knee rehabilitation. - She is morbidly obese and is being ref erred to a medical weight loss clinic for obesity management. - Reports depressive symptoms related to ongoing knee pain and reduced quality of life. Health Maintenance - Referral to medical weight loss clinic for obesity management. Review of Systems - Musculoskeletal: Reports persistent ri ght knee pain with swelling and warmth. - Neurological: Reports pain with a burn ing characteristic. - General: Reports poor sleep due to marcello n. - Psychiatric: Reports depression sympto ms related to chronic pain., denies any si or hi Physical Exam General: Cooperative, healthy appearing, comfortable, no acute distress and well developed Orientation: Patient oriented x3 Limitations: No limitations Head: Normal to inspection Ears: Hearing grossly normal bilaterally Nose: Normal external nose present Face and sinus: Normal facial exam Eyes: Appearance normal, both eyes and all related structures Neck: Normal visual inspection and Yes full ROM Respiratory: Normal respiratory effort and able to speak in complete sentences. Clear to auscultation bilaterally Cardiovascular: Regular rate and rhythm. Normal S1 and S2 GI: Normal to inspection. Soft to palpation and nontender Skin: No rashes or lesions noted Neuro: Patient oriented x3 Extremities: Swelling and warmth noted on the right knee anterior aspect. Positive dorsalis pedis pulse. Morbidly obese. Results Plan The patient will continue with gabapentin to alleviate burning knee pain while awaiting further assessment from her orthopedic surgeon. Despite previous clear X-ray results, additional imaging or evaluation may be necessary due to persistent symptoms and functional impact. Weight management is an essential component, with a referral to a medical weight loss clinic. Addressing obesity may alleviate knee symptoms. Depression appears to be pain-related; thus, impro jovita pain control is likely to enhance mental health and sleep quality. Continued monitoring and patient communication after her surgical follow-up are planned to update and modify the management approach as necessary. Discussion Notes I have discussed with the patient the importance of continuing her current gabapentin regimen and emphasized the potential benefits of her upcoming surgical consultation for further understanding and managing her persistent knee pain. We reviewed the relationship between chronic pain and her depressive symptoms. I also highlighted the significance of obesity management and its impact on lowering knee strain through the medical weight loss clinic referral. The benefits and potential drawbacks of current treatments were discussed, alongside the necessity of following up after her surgical appointment to refine her treatment plan according to further findings. Patient Instructions - Continue to take gabapentin as prescri bed. - Maintain participation in physical the rapy exercises at home. - Follow up with your surgeon as sched ed. - Keep track of any changes in symptoms or new concerns. - Attend the referral to the medical barrera ght loss clinic. - Contact me after your surgical follow- up to update on your progress and discuss any required changes to your care plan. [facility] Medical History Pre-op examination Bilateral knee pain Postmenopausal Breast cancer Fracture of femoral neck, left Pulmonary nodule Preoperative clearance Early satiety Nausea Right shoulder pain Nausea and vomiting History of breast cancer Skin lesions Screening for lipid disorders Irritable bowel syndrome with constipation Screening for colon cancer Physical exam History of sepsis CKD (chronic kidney disease) CLYDE (obstructive sleep apnea) Clostridium difficile infection Lupus Glaucoma History of kidney disease Sleep apnea Hypothyroidism Closed fracture of neck of left femur Fibromyalgia Surgical History History of total right knee replacement H/O shoulder surgery Hx of tonsillectomy History of hip surgery History of esophagogastroduodenoscopy (EGD) H/O colonoscopy History of cholecystectomy Family History Father Heart attack Clogged artery (heart) COPD (chronic obstructive pulmonary disease) Mother Stroke Clogged artery (heart) Sister COPD (chronic obstructive pulmonary disease) Brother COPD (chronic obstructive pulmonary disease) Social History Household Members: None Housing: Apartment Housing Other:: intermediate Patient Tobacco Use Status: Never used Tobacco e-Cigarette/Vaping Use: Never Used Second Hand Smoke Exposure: No service: No Current occupational status: retired Gender identity: Female Cognitive needs: No Hearing needs: No Vision needs: No Questionnaire Thrive Questionnaire Date Thrive assessed: 12/03/24 I am a: Patient What is your living situation today?: I have a steady place to live Within the past 12 months, did the food you bought not last and you didn't have the money to get more?: Never true Within the past 12 months, did you worry whether your food would run out before you got money to buy more?: Never true Do you have trouble paying for medicines?: No Do you have trouble getting transportation to medical appointments?: No Do you have trouble paying your heating and electricity bill?: No Do you have trouble taking care of your child, family member or friend?: No Do you have trouble with day-to-day activities such as bathing, preparing meals, shopping, managing finances, etc.?: I choose not to answer this question Are you currently unemployed and looking for a job?: No Are you interested in more education?: I choose not to answer this question Please select the resources that you would like help with: None Currently or been in a relationship where the following occur: I choose not to answer THRIVE Score: 0 AUDIT C Alcohol Use Questionnaire (AUDIT-C) 1. How often do you have a drink containing alcohol?: Never 3. How often do you have six or more drinks on one occasion?: Never Total Score: 0 Score Reviewed/Action Taken: Yes SEEMA-7 AMB Questionnaire SEEMA-7 Date SEEMA - 7 assessed: 12/03/24 Feeling nervous, anxious, or on edge: 1 = Several days Not being able to stop or control worryin = Not at all Worrying too much about different things: 1 = Several days Trouble relaxin = Not at all Being so restless that it is hard to sit still: 0 = Not at all Becoming easily annoyed or irritable: 0 = Not at all Feeling afraid as if something awful might happen: 0 = Not at all Total SEEMA-7 score (0-4 normal; 5-9 mild; 10-14 moderate; 15-21 severe): 2 Source: Developed by Drs. David Perez, Carole Michelle, Virgil Harris and colleagues, with an educational gifty from [employer]. SEEMA-7 Assessment Billing SEEMA-7 Assessment Tool: SEEMA-7 Assessment 62625 Physical exam (Primary Care) Vital Signs: Last Vital Signs Pulse 61 12/03/24 15:10 Resp 16 12/03/24 15:10 BP 132/60 12/03/24 15:10 Pulse Ox 96 12/03/24 15:10 Oxygen Delivery Method Room Air 12/03/24 15:10 BMI result Body Mass Index 34.2 Tobacco/Smoking Status: Tobacco use Status Tobacco use date assessed 12/03/24 12/03/24 15:13 Patient Tobacco Use Status Never used Tobacco 12/03/24 15:13 e-Cigarette/Vaping Use Never Used 12/03/24 15:13 Thrive Assessment: Date of Thrive Assessment Date Thrive assessed 12/03/24 12/03/24 15:13 Currently or been in a relationship where the following occur: I choose not to answer Coding Level of Care Code Est Pt Level 3 (57808) Diagnoses Morbid obesity E66.01 Additional Codes SEEMA-7 Assessment Billing - SEEMA-7 Assessment Tool: SEEMA-7 Assessment 53747 ([id number]) Assessment & Plan Assessment & Plan (1) Morbid obesity: Code(s): E66.01 - Morbid (severe) obesity due to excess calories Category: Medical Plan . Orders: Referrals Medical Weight Management Referral E66.01 - Morbid (severe) obesity due to excess calories Medications: Changed From gabapentin 300 mg orally; 1 tab in the am, 1 tab in the afternoon, 2 tabs at bedtime 30 days 120 caps 0RF To gabapentin 300 mg orally; 1 tab in the am, 2 tabs at bedtime 90 caps 1RF 30 days
[2024-12-03 15:10] VITALS: BP 132/60; PULSE 61; RESP 16; O2SAT 96; BMI 34.2
--- OUTSIDE RECORDS SUMMARY | 2024-12-03 18:33 | XMS_ITS | Clinical Summary ---
Author Organization [facility] Address [address] [place] [address] Care Team Providers Care Work Manager Name Role Phone Dina Wall Primary Care Provider [phone] Medications No known medications Social History Tobacco [...] Zoster (Zostavax) Discontinued Insurance FFS Care Teams Work Manager Relationship Specialty Start Date End Date Dina Wall [facility] [address] [place] [phone] PCP - General Internal Medicine 12/18/12
--- OUTSIDE RECORDS SUMMARY | 2024-12-03 18:33 | XMS_ITS | Encounter Summary ---
Author Organization [facility] Address [address] [place] [address] Care Team Providers Care Vertical Contour Band Saw Operator Name Role Phone Baldemar Blackman MD Primary Care Provider Encounter Details Date Type Department Care Team (Late st Contact Info) Description 09/05/2024 Lab Requisition [facility] - Main Lab [address] [place] [address] Baldemar Blackman MD [address] [place] [phone] Encounter for other general examination Social History Tobacco Use Types Packs/Day Years Used Date Smoking Tobacco: Never Assessed Comments Unknown Sex and Gender Information Value Date Recorded Sex Assigned at Not on file Legal Sex Female 8:17 PM EST Gender Identity Not on file Sexual Orientation [...] AM EST) WBC 7.4 4.8 - 10.8 K/[facility] LAB HEMETOLOGY METHOD 09/05/2024 11:10 AM EST [facility] RBC 3.80 3.80 - 4.80 M/mcL LAB HEMETOLOGY METHOD 09/05/2024 11:10 AM [facility] Hemoglobin 10.3(L) 11.5 - 16.0 g/dL LAB HEMETOLOGY METHOD 09/05/2024 11:10 AM [facility] Hematocrit 32.8(L) 35.0 - 47.0 % LAB HEMETOLOGY METHOD 09/05/2024 11:10 AM [facility] MCV 86.3 79.0 - 98.0 FL LAB HEMETOLOGY METHOD 09/05/2024 11:10 AM [facility] MCH 27.1 27.0 - 32.0 pcg LAB HEMETOLOGY METHOD 09/05/2024 11:10 AM [facility] MCHC 31.4(L) 32.0 - 37.0 g/dL LAB HEMETOLOGY METHOD 09/05/2024 11:10 AM [facility] RDW 14.8 11.0 - 15.0 % LAB HEMETOLOGY METHOD 09/05/2024 11:10 AM [facility] Platelets 170 130 - 400 K/mcL LAB HEMETOLOGY METHOD 09/05/2024 11:10 AM [facility] MPV 11.0 7.0 - 11.0 FL LAB HEMETOLOGY METHOD 09/05/2024 11:10 AM [facility] NRBC 0.0 <1.0 % LAB HEMETOLOGY METHOD 09/05/2024 11:10 AM [facility] NRBC Absolute 0.00 <0.10 K/mcL LAB HEMETOLOGY METHOD 09/05/2024 11:10 AM [facility] Neutrophils Relative 67.5 % LAB HEMETOLOGY METHOD 09/05/2024 11:10 AM [facility] Lymphocytes Relative 17.1 % LAB HEMETOLOGY METHOD 09/05/2024 11:10 AM [facility] Monocytes Relative 12.2 % LAB HEMETOLOGY METHOD 09/05/2024 11:10 AM [facility] Eosinophils Relative 2.7 % LAB HEMETOLOGY METHOD 09/05/2024 11:10 AM [facility] Basophils Relative 0.4 % LAB HEMETOLOGY METHOD 09/05/2024 11:10 AM [facility] Immature Granulocytes Relative 0.1 % LAB HEMETOLOGY METHOD 09/05/2024 11:10 AM [facility] Neutrophils Absolute 4.97 1.50 - 7.00 K/mcL LAB HEMETOLOGY METHOD 09/05/2024 11:10 AM [facility] Lymphocytes Absolute 1.26 1.00 - 5.00 K/mcL LAB HEMETOLOGY METHOD 09/05/2024 11:10 AM [facility] Monocytes Absolute 0.90 0.20 - 1.00 K/mcL LAB HEMETOLOGY METHOD 09/05/2024 11:10 AM [facility] Eosinophils Absolute 0.20 0.00 - 0.50 K/mcL LAB HEMETOLOGY METHOD 09/05/2024 11:10 AM [facility] Basophils Absolute 0.03 0.00 - 0.20 K/mcL LAB HEMETOLOGY METHOD 09/05/2024 11:10 AM [facility] Immature Granulocytes Absolute 0.01 0.00 - 0.03 K/mcL LAB HEMETOLOGY METHOD 09/05/2024 11:10 AM [facility] Blood Venous blood specimen / Unknown Venipuncture / Unknown 09/05/2024 6:54 AM EST 09/05/2024 9:50 AM EST us Baldemar Blackman MD LAB BLOOD ORDERABLES Final Res ult [facility] [address] [place] [address], [place] [phone] * (ABNORMAL) Magnesium (09/05/2024 6:54 AM EST) Magnesium 1.8(L) 1.9 - 2.6 mg/dL LAB CHEMISTRY METHOD 09/05/2024 11:31 AM EST [facility] Blood Venous blood specimen / Unknown Venipuncture / Unknown 09/05/2024 6:54 AM EST 09/05/2024 9:50 AM EST Baldemar Blackman MD LAB BLOOD ORDERABLES Final Res ult Performing Organization Address [facility]/State/ZIP Co de Phone Number [facility] [address] [place] [address], [place] [phone] * (ABNORMAL) Comprehensive metabolic panel (09/05/2024 6:54 AM EST) Pathologist [facility] Sodium 139 133 - 145 mmol/L LAB CHEMISTRY METHOD 09/05/2024 11:31 AM [facility] Potassium 4.4 3.5 - 5.5 mmol/L LAB CHEMISTRY METHOD 09/05/2024 11:31 AM [facility] Chloride 107 96 - 110 mmol/L LAB CHEMISTRY METHOD 09/05/2024 11:31 AM [facility] CO2 25 21 - 32 mmol/L LAB CHEMISTRY METHOD 09/05/2024 11:31 AM [facility] Anion Gap 7 3 - 11 LAB CHEMISTRY METHOD 09/05/2024 11:31 AM [facility] Glucose 85 70 - 100 mg/dL LAB CHEMISTRY METHOD 09/05/2024 11:31 AM [facility] BUN 23 5 - 25 mg/dL LAB CHEMISTRY METHOD 09/05/2024 11:31 AM [facility] Creatinine 0.92 0.50 - 1.10 mg/dL LAB CHEMISTRY METHOD 09/05/2024 11:31 AM [facility] eGFR 65 >=60 mL/min/1. 73m2 LAB CHEMISTRY METHOD 09/05/2024 11:31 AM [facility] Comment:Calculation based on the??Chronic Kidney Disease Epidemiology Collaboration (CKD-EPI) equation refit??without adjustment for race. BUN/Creatinine Ratio 25.0 LAB CHEMISTRY METHOD 09/05/2024 11:31 AM [facility] Calcium 9.3 8.5 - 10.5 mg/dL LAB CHEMISTRY METHOD 09/05/2024 11:31 AM [facility] AST (SGOT) 87(H) 10 - 42 unit/L LAB CHEMISTRY METHOD 09/05/2024 11:31 AM [facility] ALT (SGPT) 98(H) 10 - 60 unit/L LAB CHEMISTRY METHOD 09/05/2024 11:31 AM [facility] Alkaline Phosphatase 305(H) 42 - 121 unit/L LAB CHEMISTRY METHOD 09/05/2024 11:31 AM [facility] Total Protein 4.9(L) 6.0 - 8.0 g/dL LAB CHEMISTRY METHOD 09/05/2024 11:31 AM [facility] Albumin 2.6(L) 3.2 - 5.0 g/dL LAB CHEMISTRY METHOD 09/05/2024 11:31 AM [facility] Total Bilirubin 0.6 0.0 - 1.4 mg/dL LAB CHEMISTRY METHOD 09/05/2024 11:31 AM [facility] Blood Venous blood specimen / Unknown Venipuncture / Unknown 09/05/2024 6:54 AM EST 09/05/2024 9:50 AM EST us Baldemar Blackman MD LAB BLOOD ORDERABLES Final Res ult [facility] [address] [place] [address], documented in this encounter Visit Diagnoses Diagnosis Encounter for other general examination documented in this encounter Care Teams Vertical Contour Band Saw Operator Relationship Specialty Start Date End Date Baldemar Blackman MD [address] [place] [phone] PCP - General Internal Medicine 09/14/24 documented as of this encounter
--- OUTSIDE RECORDS SUMMARY | 2024-12-03 18:33 | XMS_ITS | Encounter Summary ---
Author Organization [facility] Address [address] [place] [address] Care Team Providers Care Loom Operator Name Role Phone Baldemar Blackman MD Primary Care Provider Encounter Details Date Type Department Care Team (Late st Contact Info) Description 09/14/2024 Lab Requisition [facility] - Main Lab [address] [place] [address] Baldemar Blackman MD [address] [place] [phone] Encounter for other general examination Social History [...] Complete blood count (09/14/2024 6:28 AM EST) WBC 7.2 4.8 - 10.8 K/mcL LAB HEMETOLOGY METHOD 09/14/2024 9:19 AM EST [facility] RBC 3.80 3.80 - 4.80 M/mcL LAB HEMETOLOGY METHOD 09/14/2024 9:19 AM EST [facility] Hemoglobin 10.2(L) 11.5 - 16.0 g/dL LAB HEMETOLOGY METHOD 09/14/2024 9:19 AM [facility] Hematocrit 33.4(L) 35.0 - 47.0 % LAB HEMETOLOGY METHOD 09/14/2024 9:19 AM [facility] MCV 88.8 79.0 - 98.0 FL LAB HEMETOLOGY METHOD 09/14/2024 9:19 AM EST [facility] MCH 27.1 27.0 - 32.0 pcg LAB HEMETOLOGY METHOD 09/14/2024 9:19 AM [facility] MCHC 30.5(L) 32.0 - 37.0 g/dL LAB HEMETOLOGY METHOD 09/14/2024 9:19 AM [facility] RDW 14.7 11.0 - 15.0 % LAB HEMETOLOGY METHOD 09/14/2024 9:19 AM [facility] Platelets 352 130 - 400 K/mcL LAB HEMETOLOGY METHOD 09/14/2024 9:19 AM [facility] MPV 9.9 7.0 - 11.0 FL LAB HEMETOLOGY METHOD 09/14/2024 9:19 AM [facility] NRBC 0.0 <1.0 % LAB HEMETOLOGY METHOD 09/14/2024 9:19 AM EST [facility] NRBC Absolute 0.00 <0.10 K/mcL LAB HEMETOLOGY METHOD 09/14/2024 9:19 AM [facility] Blood Venous blood specimen / Unknown Venipuncture / Unknown 09/14/2024 6:28 AM EST 09/14/2024 8:05 AM EST us Baldemar Blackman MD LAB BLOOD ORDERABLES Final Res ult [facility] [address] [place] [address], [place] [phone] * (ABNORMAL) Comprehensive metabolic panel (09/14/2024 6:28 AM EST) Sodium 143 133 - 145 mmol/L LAB CHEMISTRY METHOD 09/14/2024 9:52 AM [facility] Potassium 4.7 3.5 - 5.5 mmol/L LAB CHEMISTRY METHOD 09/14/2024 9:52 AM [facility] Chloride 107 96 - 110 mmol/L LAB CHEMISTRY METHOD 09/14/2024 9:52 AM [facility] CO2 28 21 - 32 mmol/L LAB CHEMISTRY METHOD 09/14/2024 9:52 AM [facility] Anion Gap 8 3 - 11 LAB CHEMISTRY METHOD 09/14/2024 9:52 AM [facility] Glucose 89 70 - 100 mg/dL LAB CHEMISTRY METHOD 09/14/2024 9:52 AM [facility] BUN 23 5 - 25 mg/dL LAB CHEMISTRY METHOD 09/14/2024 9:52 AM [facility] Creatinine 1.07 0.50 - 1.10 mg/dL LAB CHEMISTRY METHOD 09/14/2024 9:52 AM [facility] eGFR 54(L) >=60 mL/min/1. 73m2 LAB CHEMISTRY METHOD 09/14/2024 9:52 AM [facility] Comment:Calculation based on the??Chronic Kidney Disease Epidemiology Collaboration (CKD-EPI) equation refit??without adjustment for race. BUN/Creatinine Ratio 21.5 LAB CHEMISTRY METHOD 09/14/2024 9:52 AM [facility] Calcium 9.6 8.5 - 10.5 mg/dL LAB CHEMISTRY METHOD 09/14/2024 9:52 AM [facility] AST (SGOT) 28 10 - 42 unit/L LAB CHEMISTRY METHOD 09/14/2024 9:52 AM [facility] ALT (SGPT) 68(H) 10 - 60 unit/L LAB CHEMISTRY METHOD 09/14/2024 9:52 AM EST [facility] Alkaline Phosphatase 232(H) 42 - 121 unit/L LAB CHEMISTRY METHOD 09/14/2024 9:52 AM [facility] Total Protein 5.0(L) 6.0 - 8.0 g/dL LAB CHEMISTRY METHOD 09/14/2024 9:52 AM [facility] Albumin 2.8(L) 3.2 - 5.0 g/dL LAB CHEMISTRY METHOD 09/14/2024 9:52 AM [facility] Total Bilirubin 0.4 0.0 - 1.4 mg/dL LAB CHEMISTRY METHOD 09/14/2024 9:52 AM [facility] Blood Venous blood specimen / Unknown Venipuncture / Unknown 09/14/2024 6:28 AM EST 09/14/2024 8:05 AM EST us Baldemar Blackman MD LAB BLOOD ORDERABLES Final Res ult [facility] [address] [place] [address], documented in this encounter Visit Diagnoses Diagnosis Encounter for other general examination documented in this encounter Care Teams Loom Operator Relationship Specialty Start Date End Date Baldemar Blackman MD [address] [place] [phone] PCP - General Internal Medicine 09/14/24 documented as of this encounter
--- OUTSIDE RECORDS SUMMARY | 2024-12-03 18:33 | XMS_ITS | Encounter Summary ---
Author Organization [facility] Address [address] [place] [address] Care Team Providers Care Advertising Project Manager Name Role Phone Baldemar Blackman MD Primary Care Provider Encounter Details Date Type Department Care Team (Late st Contact Info) Description 09/10/2024 Lab Requisition [facility] - Main Lab [address] [place] [address] Baldemar Blackman MD [address] [place] [address] Encounter for other general examination Social History [...] AM EST) WBC 6.3 4.8 - 10.8 K/mcL LAB HEMETOLOGY METHOD 09/10/2024 9:11 AM EST [facility] LAB RBC 3.60(L) 3.80 - 4.80 M/[facility] LAB HEMETOLOGY METHOD 09/10/2024 9:11 AM EST [facility] LAB Hemoglobin 9.7(L) 11.5 - 16.0 g/dL LAB HEMETOLOGY METHOD 09/10/2024 9:11 AM [facility] LAB Hematocrit 31.3(L) 35.0 - 47.0 % LAB HEMETOLOGY METHOD 09/10/2024 9:11 AM [facility] LAB MCV 88.2 79.0 - 98.0 FL LAB HEMETOLOGY METHOD 09/10/2024 9:11 AM [facility] LAB MCH 27.3 27.0 - 32.0 pcg LAB HEMETOLOGY METHOD 09/10/2024 9:11 AM [facility] LAB MCHC 31.0(L) 32.0 - 37.0 g/dL LAB HEMETOLOGY METHOD 09/10/2024 9:11 AM [facility] LAB RDW 14.4 11.0 - 15.0 % LAB HEMETOLOGY METHOD 09/10/2024 9:11 AM [facility] LAB Platelets 273 130 - 400 K/mcL LAB HEMETOLOGY METHOD 09/10/2024 9:11 AM [facility] LAB MPV 10.3 7.0 - 11.0 FL LAB HEMETOLOGY METHOD 09/10/2024 9:11 AM [facility] LAB NRBC 0.0 <1.0 % LAB HEMETOLOGY METHOD 09/10/2024 9:11 AM EST [facility] LAB NRBC Absolute 0.00 <0.10 K/mcL LAB HEMETOLOGY METHOD 09/10/2024 9:11 AM [facility] LAB Blood Venous blood specimen / Unknown Venipuncture / Unknown 09/10/2024 5:58 AM EST 09/10/2024 8:24 AM EST us Baldemar Blackman MD LAB BLOOD ORDERABLES Final Res ult [facility] LAB [address] [place] [address], [place] [phone] * (ABNORMAL) Basic metabolic panel (09/10/2024 5:58 AM EST) Sodium 140 133 - 145 mmol/L LAB CHEMISTRY METHOD 09/10/2024 9:26 AM [facility] LAB Potassium 4.4 3.5 - 5.5 mmol/L LAB CHEMISTRY METHOD 09/10/2024 9:26 AM [facility] LAB Chloride 107 96 - 110 mmol/L LAB CHEMISTRY METHOD 09/10/2024 9:26 AM [facility] LAB CO2 30 21 - 32 mmol/L LAB CHEMISTRY METHOD 09/10/2024 9:26 AM [facility] LAB Anion Gap 3 3 - 11 LAB CHEMISTRY METHOD 09/10/2024 9:26 AM [facility] LAB Glucose 85 70 - 100 mg/dL LAB CHEMISTRY METHOD 09/10/2024 9:26 AM [facility] LAB BUN 23 5 - 25 mg/dL LAB CHEMISTRY METHOD 09/10/2024 9:26 AM [facility] LAB Creatinine 1.09 0.50 - 1.10 mg/dL LAB CHEMISTRY METHOD 09/10/2024 9:26 AM [facility] LAB eGFR 53(L) >=60 mL/min/1. 73m2 LAB CHEMISTRY METHOD 09/10/2024 9:26 AM [facility] LAB Comment:Calculation based on the??Chronic Kidney Disease Epidemiology Collaboration (CKD-EPI) equation refit??without adjustment for race. BUN/Creatinine Ratio 21.1 LAB CHEMISTRY METHOD 09/10/2024 9:26 AM [facility] LAB Calcium 9.3 8.5 - 10.5 mg/dL LAB CHEMISTRY METHOD 09/10/2024 9:26 AM [facility] LAB Blood Venous blood specimen / Unknown Venipuncture / Unknown 09/10/2024 5:58 AM EST 09/10/2024 8:24 AM EST us Baldemar Blackman MD LAB BLOOD ORDERABLES Final Res ult [facility] [address] [place] [address], documented in this encounter Visit Diagnoses Diagnosis Encounter for other general examination documented in this encounter Care Teams Advertising Project Manager Relationship Specialty Start Date End Date Baldemar Blackman MD [address] [place] [id number] PCP - General Internal Medicine 09/14/24 documented as of this encounter
--- OUTSIDE RECORDS SUMMARY | 2024-12-03 18:33 | XMS_ITS | Continuity of Care Document ---
Author Organization [facility] Tanishamelvin Stanley n's [facility] Address [address] [place] [address], [address] [place] [address]- Care Team Providers Care Batch Dumper Name Role Phone Cruz RENTERIA, Tushar Mackay Primary Care Physician [phone] [id number] Date(s): 11/24/24 - 12/01/24 [facility] [employer] [facility] [address] [place] [address], [address] [place], [place] [address] Attending Physician: Janette Kothari MD Referring Physician: Tushar Arroyo NP Encounter Type: Office Visit Allergies, Adverse Reactions, Alerts Substance Criticality Severity Reaction Reaction Severity Status Zofran Throat swelling Acti ve Latex Blisters Active Adhesive Bandage Act carlos eduardo Problem List Condition Confirmation Course Effective Dates [...] oldest [Reference Range]: 1 Height 167.6 cm (11/24/24 2:47 PM) Weight 97.0 kg (11/24/24 2:47 PM) Body Mass Index [18.5-24.99 kg/m2] 34.53 kg/m2 *>HHI* (11/24/24 2:47 PM) Blood Pressure [90-138/55-84 mm Hg] 122/ 70mm Hg (11/24/24 2:47 PM) Blood pressure sites Arm, right (11/24/24 2:47 PM) Weight Obtained Via Standing scale (11/24/24 2:47 PM) Social History Social History Type Response Smoking Status Never (less than 100 in lifetime) entered on: 09/26/22 Sex Sex Representation Female (finding) Patient Care team information Care Team Personnel Name: Pooja Li RN Position: S RN Member Role: Primary Care Nurse Name: Tushar Arroyo NP Position: Reference Physician Member Role: PCP Address: [address] [place] [address] Telecom: Name: Hillary Edward RN Position: S RN Member Role: Primary Care Nurse Name: Evie Watts RN Position: S RN Member Role: Primary Care Nurse Name: Fatmata Shaw RN Position: S RN Member Role: Primary Care Nurse Name: Elsy Anton RN Position: S RN Member Role: Primary Care Nurse Care Team Related Persons Name: CHRISTOS WILDE Insurance Providers Guarantor name: SHAHZADGood IBARRA Health Plan Information #: 1 Payer: MEDICARE PART B OUTPT Member Number: [id number] Policy Number: NA Group Number: NA Health Plan Information #: 2 Payer: MEDEX Member Number: [id number] Policy Number: NA Group Number: NA
--- OUTSIDE RECORDS SUMMARY | 2024-12-03 18:33 | XMS_ITS | Clinical Summary ---
Author Organization [address] [facility] Address [address] [place] [address] Phone Care Team Providers Care Necktie Stitcher Name Role Phone Baldemar Blackman MD Primary Care Provider [phone] Encounters Date Type Department Care Team Description 09/14/2024 Lab Requisition [facility] Lab [address] [place] [phone] Baldemar Blackman MD Encounter for other general examination 09/10/2024 Lab Requisition [facility] Lab [address] [place] [phone] Baldemar Blackman MD Encounter for other general examination 09/05/2024 Lab Requisition [facility] Lab [address] [place] [phone] Baldemar Blackman MD Encounter for other general [...] DTaP,Tdap,and Td Vaccines (1 - Tdap) 1967 Pneumococcal Vaccine: 50+ Ye ars (1 of 1 - PCV) 1998 Zoster Vaccines (1 of 2) 1998 RSV Immunization Patients 60 + Years Old [...] patient's age to complete this topic Meningococcal B Vacine Aged Out No lo nger eligible based on patient's age to complete [...] of2 resultswithin the time period is included. WBC 7.2 4.8 - 10.8 K/mcL LAB HEMETOLOGY METHOD 09/14/2024 9:19 AM [facility] LAB RBC 3.80 3.80 - 4.80 M/mcL LAB HEMETOLOGY METHOD 09/14/2024 9:19 AM [facility] LAB Hemoglobin 10.2(L) 11.5 - 16.0 g/dL LAB HEMETOLOGY METHOD 09/14/2024 9:19 AM [facility] LAB Hematocrit 33.4(L) 35.0 - 47.0 % LAB HEMETOLOGY METHOD 09/14/2024 9:19 AM [facility] LAB MCV 88.8 79.0 - 98.0 FL LAB HEMETOLOGY METHOD 09/14/2024 9:19 AM [facility] LAB MCH 27.1 27.0 - 32.0 pcg LAB HEMETOLOGY METHOD 09/14/2024 9:19 AM [facility] LAB MCHC 30.5(L) 32.0 - 37.0 g/dL LAB HEMETOLOGY METHOD 09/14/2024 9:19 AM [facility] LAB RDW 14.7 11.0 - 15.0 % LAB HEMETOLOGY METHOD 09/14/2024 9:19 AM [facility] LAB Platelets 352 130 - 400 K/mcL LAB HEMETOLOGY METHOD 09/14/2024 9:19 AM [facility] LAB MPV 9.9 7.0 - 11.0 FL LAB HEMETOLOGY METHOD 09/14/2024 9:19 AM [facility] LAB NRBC 0.0 <1.0 % LAB HEMETOLOGY METHOD 09/14/2024 9:19 AM [facility] NRBC Absolute 0.00 <0.10 K/mcL LAB HEMETOLOGY METHOD 09/14/2024 9:19 AM [facility] Blood Venous blood specimen / Unknown Venipuncture / Unknown 09/14/2024 6:28 AM EST 09/14/2024 8:05 AM EST us Baldemar Blackman MD LAB BLOOD ORDERABLES Final Res ult [facility] [address] [place] [address], [place] [phone] * (ABNORMAL) Comprehensive metabolic panel (09/14/2024 6:28 AM EST) Only the most recent of2 resultswithin the time period is included. Sodium 143 133 - 145 mmol/L LAB CHEMISTRY METHOD 09/14/2024 9:52 AM [facility] Potassium 4.7 3.5 - 5.5 mmol/L LAB CHEMISTRY METHOD 09/14/2024 9:52 AM [facility] Chloride 107 96 - 110 mmol/L LAB CHEMISTRY METHOD 09/14/2024 9:52 AM [facility] CO2 28 21 - 32 mmol/L LAB CHEMISTRY METHOD 09/14/2024 9:52 AM [facility] LAB Anion Gap 8 3 - 11 LAB CHEMISTRY METHOD 09/14/2024 9:52 AM [facility] Glucose 89 70 - 100 mg/dL LAB CHEMISTRY METHOD 09/14/2024 9:52 AM [facility] BUN 23 5 - 25 mg/dL LAB CHEMISTRY METHOD 09/14/2024 9:52 AM [facility] Creatinine 1.07 0.50 - 1.10 mg/dL LAB CHEMISTRY METHOD 09/14/2024 9:52 AM [facility] eGFR 54(L) >=60 mL/min/1. 73m2 LAB CHEMISTRY METHOD 09/14/2024 9:52 AM [facility] Comment:Calculation based on the??Chronic Kidney Disease Epidemiology Collaboration (CKD-EPI) equation refit??without adjustment for race. BUN/Creatinine Ratio 21.5 LAB CHEMISTRY METHOD 09/14/2024 9:52 AM [facility] Calcium 9.6 8.5 - 10.5 mg/dL LAB CHEMISTRY METHOD 09/14/2024 9:52 AM [facility] AST (SGOT) 28 10 - 42 unit/L LAB CHEMISTRY METHOD 09/14/2024 9:52 AM [facility] ALT (SGPT) 68(H) 10 - 60 unit/L LAB CHEMISTRY METHOD 09/14/2024 9:52 AM [facility] Alkaline Phosphatase 232(H) 42 - 121 unit/L LAB CHEMISTRY METHOD 09/14/2024 9:52 AM [facility] Total Protein 5.0(L) 6.0 - 8.0 g/dL LAB CHEMISTRY METHOD 09/14/2024 9:52 AM [facility] Albumin 2.8(L) 3.2 - 5.0 g/dL LAB CHEMISTRY METHOD 09/14/2024 9:52 AM [facility] Total Bilirubin 0.4 0.0 - 1.4 mg/dL LAB CHEMISTRY METHOD 09/14/2024 9:52 AM [facility] Blood Venous blood specimen / Unknown Venipuncture / Unknown 09/14/2024 6:28 AM EST 09/14/2024 8:05 AM EST us Baldemar Blackman MD LAB BLOOD ORDERABLES Final Res ult [facility] [address] [place] [address], [place] [phone] * (ABNORMAL) Basic metabolic panel (09/10/2024 5:58 AM EST) Sodium 140 133 - 145 mmol/L LAB CHEMISTRY METHOD 09/10/2024 9:26 AM [facility] Potassium 4.4 3.5 - 5.5 mmol/L LAB CHEMISTRY METHOD 09/10/2024 9:26 AM [facility] Chloride 107 96 - 110 mmol/L LAB CHEMISTRY METHOD 09/10/2024 9:26 AM [facility] CO2 30 21 - 32 mmol/L LAB CHEMISTRY METHOD 09/10/2024 9:26 AM [facility] Anion Gap 3 3 - 11 LAB CHEMISTRY METHOD 09/10/2024 9:26 AM [facility] Glucose 85 70 - 100 mg/dL LAB CHEMISTRY METHOD 09/10/2024 9:26 AM [facility] BUN 23 5 - 25 mg/dL LAB CHEMISTRY METHOD 09/10/2024 9:26 AM [facility] Creatinine 1.09 0.50 - 1.10 mg/dL LAB CHEMISTRY METHOD 09/10/2024 9:26 AM [facility] LAB eGFR 53(L) >=60 mL/min/1. 73m2 LAB CHEMISTRY METHOD 09/10/2024 9:26 AM [facility] Comment:Calculation based on the??Chronic Kidney Disease Epidemiology Collaboration (CKD-EPI) equation refit??without adjustment for race. BUN/Creatinine Ratio 21.1 LAB CHEMISTRY METHOD 09/10/2024 9:26 AM [facility] Calcium 9.3 8.5 - 10.5 mg/dL LAB CHEMISTRY METHOD 09/10/2024 9:26 AM [facility] Blood Venous blood specimen / Unknown Venipuncture / Unknown 09/10/2024 5:58 AM EST 09/10/2024 8:24 AM EST us Baldemar Blackman MD LAB BLOOD ORDERABLES Final Res ult [facility] [address] [place] [address], * (ABNORMAL) CBC auto differential (09/05/2024 6:54 AM EST) [facility] Signature WBC 7.4 4.8 - 10.8 K/mcL LAB HEMETOLOGY METHOD 09/05/2024 11:10 AM EST [facility] RBC 3.80 3.80 - 4.80 M/mcL LAB HEMETOLOGY METHOD 09/05/2024 11:10 AM EST [facility] Hemoglobin 10.3(L) 11.5 - 16.0 g/dL LAB HEMETOLOGY METHOD 09/05/2024 11:10 AM EST [facility] Hematocrit 32.8(L) 35.0 - 47.0 % LAB HEMETOLOGY METHOD 09/05/2024 11:10 AM EST [facility] MCV 86.3 79.0 - 98.0 FL LAB HEMETOLOGY METHOD 09/05/2024 11:10 AM EST [facility] MCH 27.1 27.0 - 32.0 pcg LAB HEMETOLOGY METHOD 09/05/2024 11:10 AM EST [facility] MCHC 31.4(L) 32.0 - 37.0 g/dL LAB HEMETOLOGY METHOD 09/05/2024 11:10 AM EST [facility] RDW 14.8 11.0 - 15.0 % LAB HEMETOLOGY METHOD 09/05/2024 11:10 AM EST [facility] Platelets 170 130 - 400 K/mcL LAB HEMETOLOGY METHOD 09/05/2024 11:10 AM EST [facility] MPV 11.0 7.0 - 11.0 FL LAB HEMETOLOGY METHOD 09/05/2024 11:10 AM EST [facility] NRBC 0.0 <1.0 % LAB HEMETOLOGY METHOD 09/05/2024 11:10 AM [facility] NRBC Absolute 0.00 <0.10 K/mcL LAB HEMETOLOGY METHOD 09/05/2024 11:10 AM [facility] Neutrophils Relative 67.5 % LAB HEMETOLOGY METHOD 09/05/2024 11:10 AM [facility] Lymphocytes Relative 17.1 % LAB HEMETOLOGY METHOD 09/05/2024 11:10 AM [facility] Monocytes Relative 12.2 % LAB HEMETOLOGY METHOD 09/05/2024 11:10 AM [facility] Eosinophils Relative 2.7 % LAB HEMETOLOGY METHOD 09/05/2024 11:10 AM [facility] Basophils Relative 0.4 % LAB HEMETOLOGY METHOD 09/05/2024 11:10 AM [facility] Immature Granulocytes Relative 0.1 % LAB HEMETOLOGY METHOD 09/05/2024 11:10 AM [facility] Neutrophils Absolute 4.97 1.50 - 7.00 K/mcL LAB HEMETOLOGY METHOD 09/05/2024 11:10 AM [facility] Lymphocytes Absolute 1.26 1.00 - 5.00 K/mcL LAB HEMETOLOGY METHOD 09/05/2024 11:10 AM [facility] Monocytes Absolute 0.90 0.20 - 1.00 K/mcL LAB HEMETOLOGY METHOD 09/05/2024 11:10 AM [facility] Eosinophils Absolute 0.20 0.00 - 0.50 K/mcL LAB HEMETOLOGY METHOD 09/05/2024 11:10 AM [facility] Basophils Absolute 0.03 0.00 - 0.20 K/mcL LAB HEMETOLOGY METHOD 09/05/2024 11:10 AM [facility] Immature Granulocytes Absolute 0.01 0.00 - 0.03 K/mcL LAB HEMETOLOGY METHOD 09/05/2024 11:10 AM EST [facility] Blood Venous blood specimen / Unknown Venipuncture / Unknown 09/05/2024 6:54 AM EST 09/05/2024 9:50 AM EST us Baldemar Blackman MD LAB BLOOD ORDERABLES Final Res ult Performing Organization Address [facility]/ZIP Co de Phone Number [facility] [address] [place] [address], [place] [phone] * (ABNORMAL) Magnesium (09/05/2024 6:54 AM EST) Magnesium 1.8(L) 1.9 - 2.6 mg/dL LAB CHEMISTRY METHOD 09/05/2024 11:31 AM EST [facility] Blood Venous blood specimen / Unknown Venipuncture / Unknown 09/05/2024 6:54 AM EST 09/05/2024 9:50 AM EST us Baldemar Blackman MD LAB BLOOD ORDERABLES Final Res ult Performing Organization Address [facility] de Phone Number [facility] [address] [place] [address], [place] [phone] from Last 3 Months Care Teams Necktie Stitcher Relationship Specialty Start Date End Date Baldemar Blackman MD [address] [place] [phone] PCP - General Internal Medicine 09/14/24
--- OUTSIDE RECORDS SUMMARY | 2024-12-03 18:33 | XMS_ITS | Data Portability ---
Author Organization [place] [facility], [facility] Office Address [address] [place] [address] Assessment Encounter Date Assessment Date Assessment LastModified [...] then dressed. She was given post-injection instructions. [email or web address] Not available 10/06/2019 15:51:00 Plan of Treatment [...] SNOMED-CT Code Diagnosis ICD10 Code Diagnosis Note [id number] SHARI MCBRIDE MD [facility] Office [address] [phone] 10/05/2019 13:12:35 10/06/2019 16:21:54 Osteoarthritis of knee [id number] M17.11 Health Concerns Section Related Observation LastModified by Organization Detai ls LastModified Time None Recorded Concern Status LastModified by Organization Details LastModified Time None Recorded Advance Directives Directive None Recorded Payers Encounter Date Sequence Insurance Name Policy Number Policy Miles Covered Member ID Miles Member ID Guarantor Name 10/05/2019 1 [place]ICARE B-[place]: [employer] Reema Dalton [id number] Reema Dalton 10/05/2019 2 [place]: [facility] [id number] Reema Dalton [id number] Reema Dalton Notes Date Note Type [...] She also had an injection from her noodle maker about 5 years ago, again with limited [...] 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 She does feel like the pain has [...] patient is retired. 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 She does not smoke nor drink alcohol [...] Review of Systems negative. SHARI MCBRIDE MD [address] [place] [address], [phone], [facility] 10/09/2019 10:59:55 OBGyn Episode No OBEpisode recorded.
== END 2024-12-03 16:03 | disposition home or self-care (01) ==
PROVIDERS: PCP Nurse Practitioner Family; Visit Provider Nurse Practitioner Family
DX: E66.01 Morbid (severe) obesity due to excess calories (principal); Z68.34 Body mass index [BMI] 34.0-34.9, adult

== ENCOUNTER → 2024-12-03 15:00 | Outpatient (BNVA) | payer MEDICARE, SELFPAY | PROVIDERS: PCP Nurse Practitioner Family; Visit Provider Nurse Practitioner Family | DX: E66.01 Morbid (severe) obesity due to excess calories (principal) | CPT/HCPCS: 96127; 99212 ==

== ENCOUNTER 2024-12-10 08:38 | Emergency (ER) | payer MEDICARE, SELFPAY ==
[2024-12-10 08:45] VITALS: BP 160/80; BP 162/62; PULSE 74; PULSE 80; RESP 16; TEMP 36.9; O2SAT 99; BMI 33.4
[2024-12-10 09:36] LABS: Influenza A PCR NEGATIVE (Negative); Influenza B PCR NEGATIVE (Negative); Resp Syncy Virus RNA Qual PCR NEGATIVE (Negative); SARS COV2 PCR INHOUSE NEGATIVE (Negative)
--- OUTSIDE RECORDS SUMMARY | 2024-12-10 10:08 | XMS_ITS | Encounter Summary ---
Author Organization [facility] Address [address] [place] [address] Care Team Providers Care Gas Processing Plant Operator Name Role Phone Baldemar Blackman MD Primary Care Provider Encounter Details Date Type Department Care Team (Late st Contact Info) Description 09/14/2024 Lab Requisition [facility] - Main Lab [address] [place] [address] Baldemar Blackman MD [address] [place] [phone] Encounter for other general examination Social History [...] LAB HEMETOLOGY METHOD 09/14/2024 9:19 AM EST [facility] RBC 3.80 3.80 - 4.80 M/mcL LAB HEMETOLOGY METHOD 09/14/2024 9:19 AM EST [facility] Hemoglobin 10.2(L) 11.5 - 16.0 g/dL LAB HEMETOLOGY METHOD 09/14/2024 9:19 AM [facility] Hematocrit 33.4(L) 35.0 - 47.0 % LAB HEMETOLOGY METHOD 09/14/2024 9:19 AM [facility] MCV 88.8 79.0 - 98.0 FL LAB HEMETOLOGY METHOD 09/14/2024 9:19 AM EST [facility] MCH 27.1 27.0 - 32.0 pcg LAB HEMETOLOGY METHOD 09/14/2024 9:19 AM [facility] MCHC 30.5(L) 32.0 - 37.0 g/dL LAB HEMETOLOGY METHOD 09/14/2024 9:19 AM [facility] RDW 14.7 11.0 - 15.0 % LAB HEMETOLOGY METHOD 09/14/2024 9:19 AM [facility] Platelets 352 130 - 400 K/mcL LAB HEMETOLOGY METHOD 09/14/2024 9:19 AM [facility] MPV 9.9 7.0 - 11.0 FL LAB HEMETOLOGY METHOD 09/14/2024 9:19 AM [facility] NRBC 0.0 <1.0 % LAB HEMETOLOGY METHOD 09/14/2024 9:19 AM EST [facility] NRBC Absolute 0.00 <0.10 K/mcL LAB HEMETOLOGY METHOD 09/14/2024 9:19 AM [facility] Blood Venous blood specimen / Unknown Venipuncture / Unknown 09/14/2024 6:28 AM EST 09/14/2024 8:05 AM EST us Baldemar Blackman MD LAB BLOOD ORDERABLES Final Res ult [facility] [address] [place] [address], [place] [phone] * (ABNORMAL) Comprehensive metabolic panel (09/14/2024 6:28 AM EST) Sodium 143 133 - 145 mmol/L LAB CHEMISTRY METHOD 09/14/2024 9:52 AM [facility] Potassium 4.7 3.5 - 5.5 mmol/L LAB CHEMISTRY METHOD 09/14/2024 9:52 AM [facility] Chloride 107 96 - 110 mmol/L LAB CHEMISTRY METHOD 09/14/2024 9:52 AM [facility] CO2 28 21 - 32 mmol/L LAB CHEMISTRY METHOD 09/14/2024 9:52 AM [facility] Anion Gap 8 3 - 11 LAB CHEMISTRY METHOD 09/14/2024 9:52 AM [facility] Glucose 89 70 - 100 mg/dL LAB CHEMISTRY METHOD 09/14/2024 9:52 AM [facility] BUN 23 5 - 25 mg/dL LAB CHEMISTRY METHOD 09/14/2024 9:52 AM [facility] Creatinine 1.07 0.50 - 1.10 mg/dL LAB CHEMISTRY METHOD 09/14/2024 9:52 AM [facility] eGFR 54(L) >=60 mL/min/1. 73m2 LAB CHEMISTRY METHOD 09/14/2024 9:52 AM [facility] Comment:Calculation based on the??Chronic Kidney Disease Epidemiology Collaboration (CKD-EPI) equation refit??without adjustment for race. BUN/Creatinine Ratio 21.5 LAB CHEMISTRY METHOD 09/14/2024 9:52 AM [facility] Calcium 9.6 8.5 - 10.5 mg/dL LAB CHEMISTRY METHOD 09/14/2024 9:52 AM [facility] AST (SGOT) 28 10 - 42 unit/L LAB CHEMISTRY METHOD 09/14/2024 9:52 AM [facility] ALT (SGPT) 68(H) 10 - 60 unit/L LAB CHEMISTRY METHOD 09/14/2024 9:52 AM EST [facility] Alkaline Phosphatase 232(H) 42 - 121 unit/L LAB CHEMISTRY METHOD 09/14/2024 9:52 AM [facility] Total Protein 5.0(L) 6.0 - 8.0 g/dL LAB CHEMISTRY METHOD 09/14/2024 9:52 AM [facility] Albumin 2.8(L) 3.2 - 5.0 g/dL LAB CHEMISTRY METHOD 09/14/2024 9:52 AM [facility] Total Bilirubin 0.4 0.0 - 1.4 mg/dL LAB CHEMISTRY METHOD 09/14/2024 9:52 AM [facility] Blood Venous blood specimen / Unknown Venipuncture / Unknown 09/14/2024 6:28 AM EST 09/14/2024 8:05 AM EST us Baldemar Blackman MD LAB BLOOD ORDERABLES Final Res ult [facility] [address] [place] [address], documented in this encounter Visit Diagnoses Diagnosis Encounter for other general examination documented in this encounter Care Teams Gas Processing Plant Operator Relationship Specialty Start Date End Date Baldemar Blackman MD [address] [place] [id number] PCP - General Internal Medicine 09/14/24 documented as of this encounter
--- OUTSIDE RECORDS SUMMARY | 2024-12-10 10:08 | XMS_ITS | Encounter Summary ---
Author Organization [facility] Address [address] [place] [address] Care Team Providers Care Flexographic Printing Machinist Name Role Phone Baldemar Blackman MD Primary Care Provider [phone] Encounter Details Date Type Department Care Team (Late st Contact Info) Description 09/10/2024 Lab Requisition [facility] - Main Lab [address] [place] [address] Baldemar Blackman MD [address] [place] [phone] Encounter for other general examination Social History [...] LAB HEMETOLOGY METHOD 09/10/2024 9:11 AM EST [facility] LAB RBC 3.60(L) 3.80 - 4.80 M/[facility] LAB HEMETOLOGY METHOD 09/10/2024 9:11 AM EST [facility] LAB Hemoglobin 9.7(L) 11.5 - 16.0 g/dL LAB HEMETOLOGY METHOD 09/10/2024 9:11 AM [facility] LAB Hematocrit 31.3(L) 35.0 - 47.0 % LAB HEMETOLOGY METHOD 09/10/2024 9:11 AM [facility] LAB MCV 88.2 79.0 - 98.0 FL LAB HEMETOLOGY METHOD 09/10/2024 9:11 AM [facility] LAB MCH 27.3 27.0 - 32.0 pcg LAB HEMETOLOGY METHOD 09/10/2024 9:11 AM [facility] LAB MCHC 31.0(L) 32.0 - 37.0 g/dL LAB HEMETOLOGY METHOD 09/10/2024 9:11 AM [facility] LAB RDW 14.4 11.0 - 15.0 % LAB HEMETOLOGY METHOD 09/10/2024 9:11 AM [facility] LAB Platelets 273 130 - 400 K/mcL LAB HEMETOLOGY METHOD 09/10/2024 9:11 AM [facility] LAB MPV 10.3 7.0 - 11.0 FL LAB HEMETOLOGY METHOD 09/10/2024 9:11 AM [facility] LAB NRBC 0.0 <1.0 % LAB HEMETOLOGY METHOD 09/10/2024 9:11 AM EST [facility] LAB NRBC Absolute 0.00 <0.10 K/mcL LAB HEMETOLOGY METHOD 09/10/2024 9:11 AM [facility] LAB Blood Venous blood specimen / Unknown Venipuncture / Unknown 09/10/2024 5:58 AM EST 09/10/2024 8:24 AM EST us Baldemar Blackman MD LAB BLOOD ORDERABLES Final Res ult [facility] LAB [address] [place] [address], [place] [phone] * (ABNORMAL) Basic metabolic panel (09/10/2024 5:58 AM EST) Sodium 140 133 - 145 mmol/L LAB CHEMISTRY METHOD 09/10/2024 9:26 AM [facility] LAB Potassium 4.4 3.5 - 5.5 mmol/L LAB CHEMISTRY METHOD 09/10/2024 9:26 AM [facility] LAB Chloride 107 96 - 110 mmol/L LAB CHEMISTRY METHOD 09/10/2024 9:26 AM [facility] LAB CO2 30 21 - 32 mmol/L LAB CHEMISTRY METHOD 09/10/2024 9:26 AM [facility] LAB Anion Gap 3 3 - 11 LAB CHEMISTRY METHOD 09/10/2024 9:26 AM [facility] LAB Glucose 85 70 - 100 mg/dL LAB CHEMISTRY METHOD 09/10/2024 9:26 AM [facility] LAB BUN 23 5 - 25 mg/dL LAB CHEMISTRY METHOD 09/10/2024 9:26 AM [facility] LAB Creatinine 1.09 0.50 - 1.10 mg/dL LAB CHEMISTRY METHOD 09/10/2024 9:26 AM [facility] LAB eGFR 53(L) >=60 mL/min/1. 73m2 LAB CHEMISTRY METHOD 09/10/2024 9:26 AM [facility] LAB Comment:Calculation based on the??Chronic Kidney Disease Epidemiology Collaboration (CKD-EPI) equation refit??without adjustment for race. BUN/Creatinine Ratio 21.1 LAB CHEMISTRY METHOD 09/10/2024 9:26 AM [facility] LAB Calcium 9.3 8.5 - 10.5 mg/dL LAB CHEMISTRY METHOD 09/10/2024 9:26 AM [facility] LAB Blood Venous blood specimen / Unknown Venipuncture / Unknown 09/10/2024 5:58 AM EST 09/10/2024 8:24 AM EST us Baldemar Blackman MD LAB BLOOD ORDERABLES Final Res ult [facility] ([facility] LAB [address] [place] [address], documented in this encounter Visit Diagnoses Diagnosis Encounter for other general examination documented in this encounter Care Teams Flexographic Printing Machinist Relationship Specialty Start Date End Date Baldemar Blackman MD [address] [place] [phone] PCP - General Internal Medicine 09/14/24 documented as of this encounter
--- OUTSIDE RECORDS SUMMARY | 2024-12-10 10:08 | XMS_ITS | Encounter Summary ---
Author Organization [facility] Address [address] [place] [address] Care Team Providers Care Centrifugal Screen Tender Name Role Phone Baldemar Blackman MD Primary Care Provider [phone] Encounter Details Date Type Department Care Team (Late st Contact Info) Description 09/05/2024 Lab Requisition [facility] - Main Lab [address] [place] [address] Baldemar Blackman MD [address] [place] [phone] Encounter for other general examination Social History [...] AM EST) WBC 7.4 4.8 - 10.8 K/[facility] LAB HEMETOLOGY METHOD 09/05/2024 11:10 AM EST [facility] RBC 3.80 3.80 - 4.80 M/mcL LAB HEMETOLOGY METHOD 09/05/2024 11:10 AM [facility] LAB Hemoglobin 10.3(L) 11.5 - 16.0 g/dL LAB HEMETOLOGY METHOD 09/05/2024 11:10 AM [facility] LAB Hematocrit 32.8(L) 35.0 - 47.0 % LAB HEMETOLOGY METHOD 09/05/2024 11:10 AM [facility] LAB MCV 86.3 79.0 - 98.0 FL LAB HEMETOLOGY METHOD 09/05/2024 11:10 AM [facility] LAB MCH 27.1 27.0 - 32.0 pcg LAB HEMETOLOGY METHOD 09/05/2024 11:10 AM [facility] LAB MCHC 31.4(L) 32.0 - 37.0 g/dL LAB HEMETOLOGY METHOD 09/05/2024 11:10 AM [facility] LAB RDW 14.8 11.0 - 15.0 % LAB HEMETOLOGY METHOD 09/05/2024 11:10 AM [facility] LAB Platelets 170 130 - 400 K/mcL LAB HEMETOLOGY METHOD 09/05/2024 11:10 AM [facility] LAB MPV 11.0 7.0 - 11.0 FL LAB HEMETOLOGY METHOD 09/05/2024 11:10 AM [facility] LAB NRBC 0.0 <1.0 % LAB HEMETOLOGY METHOD 09/05/2024 11:10 AM [facility] LAB NRBC Absolute 0.00 <0.10 K/mcL LAB HEMETOLOGY METHOD 09/05/2024 11:10 AM [facility] LAB Neutrophils Relative 67.5 % LAB HEMETOLOGY METHOD 09/05/2024 11:10 AM [facility] LAB Lymphocytes Relative 17.1 % LAB HEMETOLOGY METHOD 09/05/2024 11:10 AM [facility] LAB Monocytes Relative 12.2 % LAB HEMETOLOGY METHOD 09/05/2024 11:10 AM [facility] LAB Eosinophils Relative 2.7 % LAB HEMETOLOGY METHOD 09/05/2024 11:10 AM [facility] LAB Basophils Relative 0.4 % LAB HEMETOLOGY METHOD 09/05/2024 11:10 AM [facility] LAB Immature Granulocytes Relative 0.1 % LAB HEMETOLOGY METHOD 09/05/2024 11:10 AM [facility] LAB Neutrophils Absolute 4.97 1.50 - 7.00 K/mcL LAB HEMETOLOGY METHOD 09/05/2024 11:10 AM [facility] LAB Lymphocytes Absolute 1.26 1.00 - 5.00 K/mcL LAB HEMETOLOGY METHOD 09/05/2024 11:10 AM [facility] LAB Monocytes Absolute 0.90 0.20 - 1.00 K/mcL LAB HEMETOLOGY METHOD 09/05/2024 11:10 AM [facility] LAB Eosinophils Absolute 0.20 0.00 - 0.50 K/mcL LAB HEMETOLOGY METHOD 09/05/2024 11:10 AM [facility] LAB Basophils Absolute 0.03 0.00 - 0.20 K/mcL LAB HEMETOLOGY METHOD 09/05/2024 11:10 AM [facility] LAB Immature Granulocytes Absolute 0.01 0.00 - 0.03 K/mcL LAB HEMETOLOGY METHOD 09/05/2024 11:10 AM [facility] LAB Blood Venous blood specimen / Unknown Venipuncture / Unknown 09/05/2024 6:54 AM EST 09/05/2024 9:50 AM EST us Baldemar Blackman MD LAB BLOOD ORDERABLES Final Res ult [facility] LAB [address] [place] [address], [place] [phone] * (ABNORMAL) Magnesium (09/05/2024 6:54 AM EST) Magnesium 1.8(L) 1.9 - 2.6 mg/dL LAB CHEMISTRY METHOD 09/05/2024 11:31 AM EST [facility] LAB Blood Venous blood specimen / Unknown Venipuncture / Unknown 09/05/2024 6:54 AM EST 09/05/2024 9:50 AM EST Baldemar Blackman MD LAB BLOOD ORDERABLES Final Res ult Performing Organization Address [facility]/State/ZIP Co de Phone Number [facility] [address] [place] [address], [place] [phone] * (ABNORMAL) Comprehensive metabolic panel (09/05/2024 6:54 AM EST) Pathologist [facility] Sodium 139 133 - 145 mmol/L LAB CHEMISTRY METHOD 09/05/2024 11:31 AM [facility] LAB Potassium 4.4 3.5 - 5.5 mmol/L LAB CHEMISTRY METHOD 09/05/2024 11:31 AM [facility] LAB Chloride 107 96 - 110 mmol/L LAB CHEMISTRY METHOD 09/05/2024 11:31 AM [facility] LAB CO2 25 21 - 32 mmol/L LAB CHEMISTRY METHOD 09/05/2024 11:31 AM [facility] LAB Anion Gap 7 3 - 11 LAB CHEMISTRY METHOD 09/05/2024 11:31 AM [facility] LAB Glucose 85 70 - 100 mg/dL LAB CHEMISTRY METHOD 09/05/2024 11:31 AM [facility] LAB BUN 23 5 - 25 mg/dL LAB CHEMISTRY METHOD 09/05/2024 11:31 AM [facility] LAB Creatinine 0.92 0.50 - 1.10 mg/dL LAB CHEMISTRY METHOD 09/05/2024 11:31 AM [facility] LAB eGFR 65 >=60 mL/min/1. 73m2 LAB CHEMISTRY METHOD 09/05/2024 11:31 AM [facility] LAB Comment:Calculation based on the??Chronic Kidney Disease Epidemiology Collaboration (CKD-EPI) equation refit??without adjustment for race. BUN/Creatinine Ratio 25.0 LAB CHEMISTRY METHOD 09/05/2024 11:31 AM [facility] LAB Calcium 9.3 8.5 - 10.5 mg/dL LAB CHEMISTRY METHOD 09/05/2024 11:31 AM [facility] LAB AST (SGOT) 87(H) 10 - 42 unit/L LAB CHEMISTRY METHOD 09/05/2024 11:31 AM [facility] LAB ALT (SGPT) 98(H) 10 - 60 unit/L LAB CHEMISTRY METHOD 09/05/2024 11:31 AM [facility] LAB Alkaline Phosphatase 305(H) 42 - 121 unit/L LAB CHEMISTRY METHOD 09/05/2024 11:31 AM [facility] LAB Total Protein 4.9(L) 6.0 - 8.0 g/dL LAB CHEMISTRY METHOD 09/05/2024 11:31 AM [facility] LAB Albumin 2.6(L) 3.2 - 5.0 g/dL LAB CHEMISTRY METHOD 09/05/2024 11:31 AM [facility] LAB Total Bilirubin 0.6 0.0 - 1.4 mg/dL LAB CHEMISTRY METHOD 09/05/2024 11:31 AM [facility] LAB Blood Venous blood specimen / Unknown Venipuncture / Unknown 09/05/2024 6:54 AM EST 09/05/2024 9:50 AM EST us Baldemar Blackman MD LAB BLOOD ORDERABLES Final Res ult [facility] [address] [place] [address], documented in this encounter Visit Diagnoses Diagnosis Encounter for other general examination documented in this encounter Care Teams Centrifugal Screen Tender Relationship Specialty Start Date End Date Baldemar Blackman MD [address] [place] [phone] PCP - General Internal Medicine 09/14/24 documented as of this encounter
--- OUTSIDE RECORDS SUMMARY | 2024-12-10 10:08 | XMS_ITS | Clinical Summary ---
Author Organization [address] [facility] Address [address] [place] [address] Phone Care Team Providers Care Child Welfare Specialist Name Role Phone Baldemar Blackman MD Primary Care Provider [phone] Encounters Date Type Department Care Team Description 09/14/2024 Lab Requisition [facility] - Main Lab [address] [place] [address] Baldemar Blackman MD Encounter for other general [...] K/mcL LAB HEMETOLOGY METHOD 09/14/2024 9:19 AM [facility] LAB RBC 3.80 3.80 - 4.80 M/mcL LAB HEMETOLOGY METHOD 09/14/2024 9:19 AM [facility] LAB Hemoglobin 10.2(L) 11.5 - 16.0 g/dL LAB HEMETOLOGY METHOD 09/14/2024 9:19 AM [facility] LAB Hematocrit 33.4(L) 35.0 - 47.0 % LAB HEMETOLOGY METHOD 09/14/2024 9:19 AM [facility] LAB MCV 88.8 79.0 - 98.0 FL LAB HEMETOLOGY METHOD 09/14/2024 9:19 AM [facility] LAB MCH 27.1 27.0 - 32.0 pcg LAB HEMETOLOGY METHOD 09/14/2024 9:19 AM [facility] LAB MCHC 30.5(L) 32.0 - 37.0 g/dL LAB HEMETOLOGY METHOD 09/14/2024 9:19 AM EST [facility] LAB RDW 14.7 11.0 - 15.0 % LAB HEMETOLOGY METHOD 09/14/2024 9:19 AM [facility] LAB Platelets 352 130 - 400 K/mcL LAB HEMETOLOGY METHOD 09/14/2024 9:19 AM EST [facility] LAB MPV 9.9 7.0 - 11.0 FL LAB HEMETOLOGY METHOD 09/14/2024 9:19 AM EST [facility] LAB NRBC 0.0 <1.0 % LAB HEMETOLOGY METHOD 09/14/2024 9:19 AM [facility] LAB NRBC Absolute 0.00 <0.10 K/mcL LAB HEMETOLOGY METHOD 09/14/2024 9:19 AM [facility] LAB Blood Venous blood specimen / Unknown Venipuncture / Unknown 09/14/2024 6:28 AM EST 09/14/2024 8:05 AM EST us Baldemar Blackman MD LAB BLOOD ORDERABLES Final Res ult [facility] LAB [address] [place] [address], * (ABNORMAL) Comprehensive metabolic panel (09/14/2024 6:28 AM EST) Sodium 143 133 - 145 mmol/L LAB CHEMISTRY METHOD 09/14/2024 9:52 AM EST [facility] LAB Potassium 4.7 3.5 - 5.5 mmol/L LAB CHEMISTRY METHOD 09/14/2024 9:52 AM [facility] LAB Chloride 107 96 - 110 mmol/L LAB CHEMISTRY METHOD 09/14/2024 9:52 AM EST [facility] LAB CO2 28 21 - 32 mmol/L LAB CHEMISTRY METHOD 09/14/2024 9:52 AM [facility] LAB Anion Gap 8 3 - 11 LAB CHEMISTRY METHOD 09/14/2024 9:52 AM [facility] LAB Glucose 89 70 - 100 mg/dL LAB CHEMISTRY METHOD 09/14/2024 9:52 AM [facility] LAB BUN 23 5 - 25 mg/dL LAB CHEMISTRY METHOD 09/14/2024 9:52 AM [facility] LAB Creatinine 1.07 0.50 - 1.10 mg/dL LAB CHEMISTRY METHOD 09/14/2024 9:52 AM [facility] LAB eGFR 54(L) >=60 mL/min/1. 73m2 LAB CHEMISTRY METHOD 09/14/2024 9:52 AM [facility] LAB Comment:Calculation based on the??Chronic Kidney Disease Epidemiology Collaboration (CKD-EPI) equation refit??without adjustment for race. BUN/Creatinine Ratio 21.5 LAB CHEMISTRY METHOD 09/14/2024 9:52 AM [facility] LAB Calcium 9.6 8.5 - 10.5 mg/dL LAB CHEMISTRY METHOD 09/14/2024 9:52 AM [facility] LAB AST (SGOT) 28 10 - 42 unit/L LAB CHEMISTRY METHOD 09/14/2024 9:52 AM [facility] LAB ALT (SGPT) 68(H) 10 - 60 unit/L LAB CHEMISTRY METHOD 09/14/2024 9:52 AM [facility] LAB Alkaline Phosphatase 232(H) 42 - 121 unit/L LAB CHEMISTRY METHOD 09/14/2024 9:52 AM [facility] LAB Total Protein 5.0(L) 6.0 - 8.0 g/dL LAB CHEMISTRY METHOD 09/14/2024 9:52 AM [facility] LAB Albumin 2.8(L) 3.2 - 5.0 g/dL LAB CHEMISTRY METHOD 09/14/2024 9:52 AM [facility] LAB Total Bilirubin 0.4 0.0 - 1.4 mg/dL LAB CHEMISTRY METHOD 09/14/2024 9:52 AM EST [facility] LAB Blood Venous blood specimen / Unknown Venipuncture / Unknown 09/14/2024 6:28 AM EST 09/14/2024 8:05 AM EST us Baldemar Blackman MD LAB BLOOD ORDERABLES Final Res ult [facility] [address] [place] [address], [place] [phone] from Last 3 Months Care Teams Child Welfare Specialist Relationship Specialty Start Date End Date Baldemar Blackman MD [address] [place] [phone] PCP - General Internal Medicine 09/14/24
--- OUTSIDE RECORDS SUMMARY | 2024-12-10 10:09 | XMS_ITS | Clinical Summary ---
Author Organization [facility] Address [address] [place] [address] Care Team Providers Care Model Maker Firearms Name Role Phone Dina Wall Primary Care Provider [phone] Medications No known medications Social History Tobacco [...] Zoster (Zostavax) Discontinued Insurance FFS Care Teams Model Maker Firearms Relationship Specialty Start Date End Date Dina Wall [facility] [address] [place] [phone] PCP - General Internal Medicine 12/18/12
--- NOTE | 2024-12-10 10:21 | ED_ITS ---
HPI - Nausea/Vomiting/Diarrhea General Chief complaint: Nausea/Vomiting/Diarrhea Stated complaint: N/V, flu like symptoms Time Seen by Provider: 12/10/24 10:20 Source: patient, family, EMS, RN notes reviewed and old records reviewed Mode of arrival: EMS History of Present Illness ED Provider: Massiel Garcia PA-C HPI Narrative: 74-year-old female with a past medical history of CKD, CLYDE, lupus, hypothyroid, sleep apnea, fibromyalgia, presenting to the ED via EMS complaining of abdominal cramping, nausea, vomiting, diarrhea, chills x 4 days with decreased p.o. intake. States diarrhea is watery. Denies melena, bloody stools or emesis. Denies suspicious food intake, recent travel, fever, CP/ SOB, dysuria /hematuria. Denies recent antibiotic use Related Data Home Medications ?Medication ?Instructions ?Recorded ?Confirmed aspirin 81 mg tablet 81 mg PO DAILY 02/14/23 12/03/24 cranberry concentrate-ascorbic 20 cap PO DAILY 05/29/23 12/03/24 acid 4,200 mg-20 mg capsule vibegron 75 mg tablet (Gemtesa) 75 mg PO DAILY 03/05/24 12/03/24 docusate sodium 100 mg capsule 100 mg PO DAILY 04/28/24 12/03/24 (Colace) turmeric root extract 500 mg 500 mg PO DAILY 04/28/24 12/03/24 capsule magnesium 50 mg PO DAILY 08/06/24 12/03/24 esomeprazole magnesium 40 mg 40 mg PO ONCE 08/11/24 12/03/24 capsule,delayed release (Nexium) albuterol sulfate 90 mcg/actuation 90 mcg inhalation DAILY 08/18/24 12/03/24 aerosol inhaler Previous Rx's ?Medication ?Instructions ?Recorded sennosides 8.6 mg tablet (Senna 25.8 mg (3 x 8.6 mg) PO BEDTIME 05/05/24 Laxative) #90 tabs fluticasone furoate 100 1 inh inhalation DAILY #60 ea 08/14/24 mcg-vilanterol 25 mcg/dose inhalation powder (Breo Ellipta) cholecalciferol (vitamin D3) 25 25 mcg PO DAILY #30 caps 08/25/24 mcg (1,000 unit) capsule clonazepam 0.5 mg tablet 0.5 mg PO TID PRN Anxiety 30 days 10/06/24 #90 tabs atorvastatin 20 mg tablet 20 mg PO BEDTIME #90 tabs 10/12/24 levothyroxine 88 mcg tablet 88 mcg PO DAILY #30 tabs 10/14/24 trazodone 100 mg tablet 100 mg PO BEDTIME #90 tabs 11/11/24 gabapentin 300 mg capsule 300 mg PO .COMPLEX 30 days #90 caps 12/07/24 Allergies Allergy/AdvReac Type Severity Reaction Status Date / Time adhesive Allergy Severe Hives Verified 12/10/24 08:49 ondansetron Allergy Unknown ANAPHYLAXIS Verified 12/10/24 08:49 [From ZOFRAN ( HYDROCHLORIDE)] Review of Systems 2 Review of Systems: Yes all other systems are reviewed and are negative Constitutional: Constitutional: Reports as per [facility] Past Medical History Attestation statement: The following information was validated with the patient. Source: old records reviewed Medical History Pre-op examination Bilateral knee pain Postmenopausal Breast cancer Fracture of femoral neck, left Pulmonary nodule Preoperative clearance Early satiety Nausea Right shoulder pain Nausea and vomiting History of breast cancer Skin lesions Screening for lipid disorders Irritable bowel syndrome with constipation Screening for colon cancer Physical exam History of sepsis CKD (chronic kidney disease) CLYDE (obstructive sleep apnea) Clostridium difficile infection Lupus Glaucoma History of kidney disease Sleep apnea Hypothyroidism Closed fracture of neck of left femur Fibromyalgia Surgical History History of total right knee replacement H/O shoulder surgery Hx of tonsillectomy History of hip surgery History of esophagogastroduodenoscopy (EGD) H/O colonoscopy History of cholecystectomy Family History Family History Father Heart attack Clogged artery (heart) COPD (chronic obstructive pulmonary disease) Mother Stroke Clogged artery (heart) Sister COPD (chronic obstructive pulmonary disease) Brother COPD (chronic obstructive pulmonary disease) Social History Social History Household Members: None Housing: Apartment Housing Other:: longterm Patient Tobacco Use Status: Never used Tobacco e-Cigarette/Vaping Use: Never Used Second Hand Smoke Exposure: No Advance Directives: No Advance Directives Information Provided: Yes service: No Current occupational status: retired Gender identity: Female Cognitive needs: No Hearing needs: No Vision needs: No Physical Exam 2 Vital Signs: Vital Signs: Last Vital Signs Temp 98.5 F 12/10/24 08:45 Pulse 74 12/10/24 08:45 Resp 16 12/10/24 08:45 BP 162/62 H 12/10/24 08:45 Pulse Ox 99 12/10/24 08:45 O2 Del Method Room Air 12/10/24 08:45 BMI result Body Mass Index 33.4 Const: General: cooperative, healthy appearing and no acute distress O rientation/consciousness: patient oriented x3 Limitations: no limitations HEENT: Head: Yes normal to inspection and Yes atraumatic Ears: hearing grossly normal bilaterally General nose exam: Normal external nose present Face and sinus: Yes normal facial exam Eyes: General: appearance normal, both eyes and all related structures EOM: EOMs intact bilaterally Neck: Neck: Yes normal visual inspection and Yes no meningeal signs Resp: Effort & Inspection: normal respiratory effort and no respiratory distress Auscultation: clear to auscultation bilaterally Cardio: Rate: regular rate Heart sounds: S1 normal heart sound present and S2 normal heart sound present GI: Inspection: Yes normal to inspection Palpation (GI): Soft to palpation, nontender, no guarding and not rigid : General: Yes no CVA tenderness Back/Spine/Pelvis: Back: no CVA tenderness Skin: Rashes: no rashes Wounds: no wounds Neuro: General: patient oriented x3, tone normal and no meningeal signs C ranial nerves: Yes CN's II-XII intact bilaterally Gait exam (Neuro): Normal gait present Extrem: General: Yes normal to inspection Course Course Course Narrative: -1500-- leukocytosis. Hemoconcentrated. AST/ALT/ alk phos mildly elevated - C diff negative. - Norovirus positive > patient is tolerating p.o. in the ED, juice, cracker, water. Discussed results including importance of hydration. Feels comfortable for discharge home at this time > patient unable to supply urine sample as every time she attempts there is also stool. Patient will be safe for discharge without UA. Results discussed with patient including worrisome signs and symptoms and strict return precautions, and when to return to the emergency department. They verbalized understanding and feel safe for discharge at this time. Medications Administered Discontinued Medications Generic Name Dose Route Start Last Admin Trade Name Jeff PRN Reason Stop Dose Admin Diphenhydramine HCl 12.5 mg 12/10/24 10:48 12/10/24 11:29 Diphenhydramine Hcl 50 Mg/Ml Vial IVPUSH 12/10/24 10:49 12.5 mg ONCE ONE Administration Sodium Chloride 1,000 mls @ 999 mls/hr 12/10/24 11:00 12/10/24 12:44 Ns IV 12/10/24 12:00 Infused .Q1H1M DOMINICK Infusion Sodium Chloride 1,000 mls @ 999 mls/hr 12/10/24 12:30 12/10/24 14:28 Ns IV 12/10/24 13:30 Infused .Q1H1M DOMINICK Infusion Metoclopramide HCl 10 mg 12/10/24 10:48 12/10/24 11:29 Metoclopramide Hcl 10 Mg/2 Ml Vial IVPUSH 12/10/24 10:49 10 mg ONCE ONE Administration Medical Decision Making Medical Decision Making MDM Narrative: 74-year-old female with a past medical history of CKD, CLYDE, lupus, hypothyroid, sleep apnea, fibromyalgia, presenting to the ED via EMS complaining of abdominal cramping, nausea, vomiting, diarrhea, chills x 4 days with decreased p.o. intake. On exam vital signs stable, NAD, nontoxic appearing, abdomen is soft/nontender. Patient with multiple episodes of diarrhea since ED arrival. Concern for gastroenteritis vs infectious diarrhea vs C diff. Concern for metabolic abnormalities. Lower suspicion for acute appendicitis /diverticulitis, cholecystitis/ lithiasis or pancreatitis Plan: Viral testing, labs, UA, stool studies including C diff, IVF, re- evaluate Please refer to course for remaining clinical decision making, interpretation of labs/imaging results, and discussions with consultants and/or family members. Differential Diagnosis Differential Diagnoses: The differential diagnosis associated with the presentation includes As above Admission/Observation Consideration of admission/observation: Escalation of care including admission/observation considered Lab Data [facility] Lab Attestation statement: I reviewed the patient's lab results. 12/10/24 11:25 12/10/24 11:25 Labs: Lab Results 12/10/24 12/10/24 12/10/24 Range/Units 08:52 11:24 11:25 WBC 5.8 (4.8-10.8) X10*3/uL RBC 5.94 H D (4.20-5.50) X10*6/uL Hgb 16.0 D (12.0-16.0) g/dl Hct 49.2 H D (37.0-47.0) % MCV 82.8 (80.0-98.0) fL MCH 26.9 L (27.0-33.0) pg MCHC 32.5 (31.0-35.0) g/dl RDW 13.6 (11.0-16.0) % Plt Count 182 (160-400) X10*3/uL MPV 10.1 (9.4-12.3) fL Immature Gran % (Auto) 0.3 (0.0-0.4) % Neut % (Auto) 66.8 (45-73) % Lymph % (Auto) 19.0 L (20-40) % [place] % (Auto) 13.1 H (2-11) % Eos % (Auto) 0.5 (0-4) % Baso % (Auto) 0.3 (0-2) % Lymph # (Auto) 1.1 L (1.2-4.9) X10*3/uL [place] # (Auto) 0.8 (0.1-1.2) X10*3/uL Eos # (Auto) 0.0 (0.0-0.4) X10*3/uL Baso # (Auto) 0.0 (0.0-0.2) X10*3/uL Abs Immat Gran (auto) 0.02 (0.00-0.03) X10*3/uL Absolute Neuts (auto) 3.9 (2.0-8.3) x10*3/uL Absolute Nucleated RBC 0.000 (0.0-0.012) X10*3/uL Nucleated RBC % (auto) 0.0 (0.0-0.2) /100WBC Sodium 138 (135-145) mmol/L Potassium 4.2 (3.3-5.1) mmol/L Chloride 109 H (96-108) mmol/L Carbon Dioxide 18 L (22-29) mmol/L Anion Gap 15 (12-20) BUN 20 H (9-16) mg/dL Creatinine 1.07 (0.5-1.4) mg/dL Estim Creat Clear Calc 51.6 Estimated GFR 50 Random Glucose 91 (60-115) mg/dL Calcium 10.4 H D (8.4-10.2) mg/dL Magnesium 2.1 (1.6-2.6) mg/dL Total Bilirubin 0.6 (0.0-1.0) mg/dL Direct Bilirubin 0.2 (0.0-0.5) mg/dL AST 57 H (5-31) U/L ALT 37 H (0-31) U/L Alkaline Phosphatase 151 H (39-117) U/L Total Protein 7.8 (6.5-8.0) g/dL Albumin 4.3 (3.5-5.0) g/dL Lipase 14 (8-78) U/L Stl C. cayetanensis PCR Not Detected (Not Detect.) Stool Rotavirus A PCR Not Detected (Not Detect.) Stl Adenov F 40/41 PCR Not Detected (Not Detect.) Stool Astrovirus (PCR) Not Detected (Not Detect.) Stool Campylobacter PCR Not Detected (Not Detect.) Stool Cryptosporidium PCR Not Detected (Not Detect.) Stl Sh Tox Pr E STEC PCR Not Detected (Not Detect.) Stool E coli O157 PCR Not applicable (Not Detect.) Stl Enterotoxigenic E PCR Not Detected (Not Detect.) Stool EPEC (PCR) Not Detected (Not Detect.) Stool EAEC (PCR) Not Detected (Not Detect.) Stl E. histolytica PCR Not Detected (Not Detect.) Stool Giardia Lamblia PCR Not Detected (Not Detect.) Stl P. shigelloides PCR Not Detected (Not Detect.) Stool Salmonella PCR Not Detected (Not Detect.) Stool Sapovirus (PCR) Not Detected (Not Detect.) Stl Shigella/EIEC PCR Not Detected (Not Detect.) St Y.enterocolitica PCR Not Detected (Not Detect.) Stool Vibrio (PCR) Not Detected (Not Detect.) Stl Vibrio cholerae PCR Not Detected (Not Detect.) Stl Norovirus GI/GII PCR Detected A (Not Detect.) C. difficile Tox B Gene NEGATIVE (Negative) Influenza Type A (PCR) NEGATIVE (Negative) Influenza Type B (PCR) NEGATIVE (Negative) RSV RNA Qual (PCR) NEGATIVE (Negative) SARS-CoV-2 RNA (RT-PCR) NEGATIVE (Negative) Radiology Impression Discussion of test interpretation with radiology: I have reviewed the radiologist's reading. Independent Historian Clinical information obtained from an independent historian. History obtained from or confirmed by: EMS External Record Review External record reviewed: Inpatient record, Office record, Outpatient record, Prior outpatient labs, Prior outpatient radiology, Primary care record and Outside ED record Tests considered The following testing was considered but not selected: As above Prescription Management I considered prescription management with: Pain Medication, Antiviral and Antibiotic Chronic Conditions Patient?s care impacted by: Other ( fibromyalgia, oa, CLYDE) Social Determinants Patient?s care significantly limited by Social Determinants of Health including: Other Social Determinant of Health Discharge Plan Discharge Clinical Impression: Norovirus Patient Disposition: Home, Self-Care Prescriptions: No Action clonazepam 0.5 mg tablet 0.5 mg PO TID PRN (Reason: Anxiety) 30 Days Qty: 90 0RF atorvastatin 20 mg tablet 20 mg PO BEDTIME Qty: 90 1RF levothyroxine 88 mcg tablet 88 mcg PO DAILY Qty: 30 0RF trazodone 100 mg tablet 100 mg PO BEDTIME Qty: 90 0RF gabapentin 300 mg capsule 300 mg PO .COMPLEX 30 Days Qty: 90 1RF Rx Instructions: 300 mg orally; 1 tab in the am, 2 tabs at bedtime aspirin 81 mg Tablet 81 mg PO DAILY albuterol sulfate 90 mcg/actuation HFA aerosol inhaler 90 mcg inhalation DAILY cranberry conc-ascorbic acid 4,200-20 mg capsule 20 cap PO DAILY docusate sodium [Colace] 100 mg capsule 100 mg PO DAILY turmeric root extract 500 mg capsule 500 mg PO DAILY cholecalciferol (vitamin D3) 25 mcg (1,000 unit) capsule 25 mcg PO DAILY Qty: 30 6RF sennosides [Senna Laxative] 8.6 mg tablet 25.8 mg PO BEDTIME Qty: 90 6RF Gemtesa 75 mg tablet 75 mg PO DAILY esomeprazole magnesium [Nexium] 40 mg capsule,delayed release(DR/EC) 40 mg PO ONCE magnesium 50 mg PO DAILY fluticasone furoate-vilanterol [Breo Ellipta] 100-25 mcg/dose blister with device 1 inh inhalation DAILY Qty: 60 3RF Print Language: Welsh
[2024-12-10] MEDS: Metoclopramide HCl 10 MG/2 ML VIAL IVPUSH (11:29)
[2024-12-10] MEDS: diphenhydrAMINE HCL 50 MG/ML VIAL 12.5 MG IVPUSH (11:29)
[2024-12-10] MEDS: 0.9 % Sodium Chloride 1,000 ML 999 ML IV ×2 (11:29→12:45)
[2024-12-10 11:35] LABS: MANUAL DIFF FLAG NO
[2024-12-10 11:41] LABS: Basophils Percent Auto 0.3 % (0-2); Eosinophils Percent Auto 0.5 % (0-4); Hematocrit 49.2 % (37.0-47.0); Imm Gran Abs Auto 0.02 X10*3/uL (0.00-0.03); Imm Gran Pct Auto 0.3 % (0.0-0.4); Lymphocytes Absolute Auto 1.1 X10*3/uL (1.2-4.9); Mean Corpuscular HGB Conc 32.5 g/dl (31.0-35.0); Mean Corpuscular Hemoglobin 26.9 pg (27.0-33.0); Mean Corpuscular Volume 82.8 fL (80.0-98.0); Mean Platelet Volume 10.1 fL (9.4-12.3); Monocytes Absolute Auto 0.8 X10*3/uL (0.1-1.2); Monocytes Percent Auto 13.1 % (2-11); Neutrophils Absolute Auto 3.9 x10*3/uL (2.0-8.3); Neutrophils Percent Auto 66.8 % (45-73); Platelet Count 182 X10*3/uL (160-400); Red Blood Count 5.94 X10*6/uL (4.20-5.50); Red Cell Distribution Width 13.6 % (11.0-16.0); White Blood Count 5.8 X10*3/uL (4.8-10.8)
[2024-12-10 11:58] LABS: Alanine Aminotransferase 37 U/L (0-31); Albumin Level 4.3 g/dL (3.5-5.0); Alkaline Phosphatase 151 U/L (39-117); Anion Gap 15 (12-20); Aspartate Amino Transferase 57 U/L (5-31); Bilirubin Direct 0.2 mg/dL (0.0-0.5); Bilirubin Total 0.6 mg/dL (0.0-1.0); Blood Urea Nitrogen 20 mg/dL (9-16); Calcium 10.4 mg/dL (8.4-10.2); Carbon Dioxide 18 mmol/L (22-29); Chloride 109 mmol/L (96-108); Creatinine Clr Calc Pharmacy 51.6; Estimated Glomerular Filt Rate 50; Glucose Random 91 mg/dL (60-115); Lipase 14 U/L (8-78); Magnesium 2.1 mg/dL (1.6-2.6); Potassium 4.2 mmol/L (3.3-5.1); Sodium 138 mmol/L (135-145); Total Protein 7.8 g/dL (6.5-8.0)
[2024-12-10 13:06] LABS: Adenovirus F 40/41 Not Detected (Not Detect.); Astrovirus Not Detected (Not Detect.); Campylobacter Not Detected (Not Detect.); Cryptosporidium Not Detected (Not Detect.); Cyclospora cayetanensis Not Detected (Not Detect.); E. coli EAEC Not Detected (Not Detect.); E. coli EPEC Not Detected (Not Detect.); E. coli ETEC Not Detected (Not Detect.); E. coli STEC Not Detected (Not Detect.); Entamoeba histolytica Not Detected (Not Detect.); Giardia lamblia Not Detected (Not Detect.); Plesiomonas shigelloides Not Detected (Not Detect.); Rotavirus A Not Detected (Not Detect.); Salmonella Not Detected (Not Detect.); Sapovirus Not Detected (Not Detect.); Shigella sp./EIEC Not Detected (Not Detect.); Vibrio Not Detected (Not Detect.); Vibrio Cholerae Not Detected (Not Detect.); Yersinia enterocolitica Not Detected (Not Detect.)
[2024-12-10 14:20] LABS: Norovirus GI/GII Detected (Not Detect.)
[2024-12-10 14:52] LABS: CDiff Gene PCR NEGATIVE (Negative)
[2024-12-10 16:23] VITALS: BP 172/70; PULSE 80; RESP 16; TEMP 36.4; O2SAT 96
== END 2024-12-10 16:24 | disposition home or self-care (01) ==
PROVIDERS: Physician Assistant; Emergency Provider Emergency Medicine; PCP Nurse Practitioner Family
DX: A08.11 Acute gastroenteropathy due to Norwalk agent (principal); R11.2 Nausea with vomiting, unspecified; R10.9 Unspecified abdominal pain; R19.7 Diarrhea, unspecified; Z79.899 Other long term (current) drug therapy; Z03.818 Encounter for observation for suspected exposure to other biological agents ruled out
CPT/HCPCS: 0241U; 36415; 80048; 80076; 83690; 83735; 85025; 87493; 87507; 96361; 96374; 96375; 99284; J1200; J2765

== ENCOUNTER 2025-01-14 11:37 | Outpatient (AMB) | payer MEDICARE, SELFPAY ==
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
[2025-01-14 11:54] VITALS: BP 161/70; PULSE 90; BMI 33.6
--- OUTSIDE RECORDS SUMMARY | 2025-01-14 14:33 | XMS_ITS | Encounter Summary ---
Author Organization [facility] Address [address] [place] [address] Care Team Providers Care Hospital Administrative Assistant Name Role Phone Baldemar Blackman MD Primary Care Provider Encounter Details Date Type Department Care Team (Late st Contact Info) Description 09/05/2024 Lab Requisition [facility] - Main Lab [address] [place] [address] Baldemar Blackman MD [address] [place] [id number] Encounter for other general examination Social History [...] AM EST) WBC 7.4 4.8 - 10.8 K/[facility] LAB HEMETOLOGY METHOD 09/05/2024 11:10 AM EST [facility] RBC 3.80 3.80 - 4.80 M/mcL LAB HEMETOLOGY METHOD 09/05/2024 11:10 AM [facility] Hemoglobin 10.3(L) 11.5 - 16.0 g/dL LAB HEMETOLOGY METHOD 09/05/2024 11:10 AM [facility] Hematocrit 32.8(L) 35.0 - 47.0 % LAB HEMETOLOGY METHOD 09/05/2024 11:10 AM [facility] MCV 86.3 79.0 - 98.0 FL LAB HEMETOLOGY METHOD 09/05/2024 11:10 AM [facility] MCH 27.1 27.0 - 32.0 pcg LAB HEMETOLOGY METHOD 09/05/2024 11:10 AM [facility] MCHC 31.4(L) 32.0 - 37.0 g/dL LAB HEMETOLOGY METHOD 09/05/2024 11:10 AM [facility] RDW 14.8 11.0 - 15.0 % LAB HEMETOLOGY METHOD 09/05/2024 11:10 AM [facility] Platelets 170 130 - 400 K/mcL LAB HEMETOLOGY METHOD 09/05/2024 11:10 AM [facility] MPV 11.0 7.0 - 11.0 FL LAB HEMETOLOGY METHOD 09/05/2024 11:10 AM [facility] NRBC 0.0 [...] 09/05/2024 11:10 AM [facility] Blood Venous blood specimen / Unknown Venipuncture / Unknown 09/05/2024 6:54 AM EST 09/05/2024 9:50 AM EST us Baldemar Blackman MD LAB BLOOD ORDERABLES Final Res ult [facility] [address] [place] [address], [place] [phone] * (ABNORMAL) Magnesium (09/05/2024 6:54 AM EST) Magnesium 1.8(L) 1.9 - 2.6 mg/dL LAB CHEMISTRY METHOD 09/05/2024 11:31 AM EST [facility] Blood Venous blood specimen / Unknown Venipuncture / Unknown 09/05/2024 6:54 AM EST 09/05/2024 9:50 AM EST Baldemar Blackman MD LAB BLOOD ORDERABLES Final Res ult Performing Organization Address [facility]/State/ZIP Co de Phone Number [facility] [address] [place] [address], [place] [phone] * (ABNORMAL) Comprehensive metabolic panel (09/05/2024 6:54 AM EST) Pathologist [facility] Sodium 139 133 - 145 mmol/L LAB CHEMISTRY METHOD 09/05/2024 11:31 AM [facility] Potassium 4.4 3.5 - 5.5 mmol/L LAB CHEMISTRY METHOD 09/05/2024 11:31 AM [facility] Chloride 107 96 - 110 mmol/L LAB CHEMISTRY METHOD 09/05/2024 11:31 AM [facility] CO2 25 21 - 32 mmol/L LAB CHEMISTRY METHOD 09/05/2024 11:31 AM [facility] Anion Gap 7 3 - 11 LAB CHEMISTRY METHOD 09/05/2024 11:31 AM [facility] Glucose 85 70 - 100 mg/dL LAB CHEMISTRY METHOD 09/05/2024 11:31 AM [facility] BUN 23 5 - 25 mg/dL LAB CHEMISTRY METHOD 09/05/2024 11:31 AM [facility] Creatinine 0.92 0.50 - 1.10 mg/dL LAB CHEMISTRY METHOD 09/05/2024 11:31 AM [facility] eGFR 65 >=60 mL/min/1. 73m2 LAB CHEMISTRY METHOD 09/05/2024 11:31 AM [facility] Comment:Calculation based on the??Chronic Kidney Disease Epidemiology Collaboration (CKD-EPI) equation refit??without adjustment for race. BUN/Creatinine Ratio 25.0 LAB CHEMISTRY METHOD 09/05/2024 11:31 AM [facility] Calcium 9.3 8.5 - 10.5 mg/dL LAB CHEMISTRY METHOD 09/05/2024 11:31 AM [facility] AST (SGOT) 87(H) 10 - 42 unit/L LAB CHEMISTRY METHOD 09/05/2024 11:31 AM [facility] ALT (SGPT) 98(H) 10 - 60 unit/L LAB CHEMISTRY METHOD 09/05/2024 11:31 AM [facility] Alkaline Phosphatase 305(H) 42 - 121 unit/L LAB CHEMISTRY METHOD 09/05/2024 11:31 AM [facility] Total Protein 4.9(L) 6.0 - 8.0 g/dL LAB CHEMISTRY METHOD 09/05/2024 11:31 AM [facility] Albumin 2.6(L) 3.2 - 5.0 g/dL LAB CHEMISTRY METHOD 09/05/2024 11:31 AM [facility] Total Bilirubin 0.6 0.0 - 1.4 mg/dL LAB CHEMISTRY METHOD 09/05/2024 11:31 AM [facility] Blood Venous blood specimen / Unknown Venipuncture / Unknown 09/05/2024 6:54 AM EST 09/05/2024 9:50 AM EST us Baldemar Blackman MD LAB BLOOD ORDERABLES Final Res ult [facility] [address] [place] [address], documented in this encounter Visit Diagnoses Diagnosis Encounter for other general examination documented in this encounter Care Teams Hospital Administrative Assistant Relationship Specialty Start Date End Date Baldemar Blackman MD [address] [place] [id number] PCP - General Internal Medicine 09/14/24 documented as of this encounter
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
--- OUTSIDE RECORDS SUMMARY | 2025-01-14 14:33 | XMS_ITS | Encounter Summary ---
[facility] Organization [facility] Address [address] [place] [address] Care Team Providers Care Electromechanisms Design Drafter Name Role Phone Baldemar Blackman MD Primary Care Provider Encounter Details Date Type Department Care Team (Late st Contact Info) Description 09/14/2024 Lab Requisition [facility] - Main Lab [address] [place] [address] Baldemar Blackman MD [address] [place] [phone] Encounter for other general examination Social History [...] LAB HEMETOLOGY METHOD 09/14/2024 9:[address] [facility] RBC 3.80 3.80 - 4.80 M/mcL LAB HEMETOLOGY METHOD 09/14/2024 9:[address] [facility] Hemoglobin 10.2(L) 11.5 - 16.0 g/dL LAB HEMETOLOGY METHOD 09/14/2024 9:19 AM [facility] Hematocrit 33.4(L) 35.0 - 47.0 % LAB HEMETOLOGY METHOD 09/14/2024 9:19 AM [facility] MCV 88.8 79.0 - 98.0 FL LAB HEMETOLOGY METHOD 09/14/2024 9:[address] [facility] MCH 27.1 27.0 - 32.0 pcg LAB HEMETOLOGY METHOD 09/14/2024 9:19 AM [facility] MCHC 30.5(L) 32.0 - 37.0 g/dL LAB HEMETOLOGY METHOD 09/14/2024 9:19 AM [facility] RDW 14.7 11.0 - 15.0 % LAB HEMETOLOGY METHOD 09/14/2024 9:19 AM [facility] Platelets 352 130 - 400 K/mcL LAB HEMETOLOGY METHOD 09/14/2024 9:19 AM [facility] MPV 9.9 7.0 - 11.0 FL LAB HEMETOLOGY METHOD 09/14/2024 9:19 AM [facility] NRBC 0.0 <1.0 % LAB HEMETOLOGY METHOD 09/14/2024 9:[address] [facility] NRBC Absolute 0.00 <0.10 K/mcL LAB HEMETOLOGY METHOD 09/14/2024 9:19 AM [facility] Blood Venous blood specimen / Unknown Venipuncture / Unknown 09/14/2024 6:28 AM EST 09/14/2024 8:05 AM EST us Baldemar Blackman MD LAB BLOOD ORDERABLES Final Res ult [facility] [address] [place] [address], [place] [phone] * (ABNORMAL) Comprehensive metabolic panel (09/14/2024 6:28 AM EST) Sodium 143 133 - 145 mmol/L LAB CHEMISTRY METHOD 09/14/2024 9:52 AM [facility] Potassium 4.7 3.5 - 5.5 mmol/L LAB CHEMISTRY METHOD 09/14/2024 9:52 AM [facility] Chloride 107 96 - 110 mmol/L LAB CHEMISTRY METHOD 09/14/2024 9:52 AM [facility] CO2 28 21 - 32 mmol/L LAB CHEMISTRY METHOD 09/14/2024 9:52 AM [facility] Anion Gap 8 3 - 11 LAB CHEMISTRY METHOD 09/14/2024 9:52 AM [facility] Glucose 89 70 - 100 mg/dL LAB CHEMISTRY METHOD 09/14/2024 9:52 AM [facility] BUN 23 5 - 25 mg/dL LAB CHEMISTRY METHOD 09/14/2024 9:52 AM [facility] Creatinine 1.07 0.50 - 1.10 mg/dL LAB CHEMISTRY METHOD 09/14/2024 9:52 AM [facility] eGFR 54(L) >=60 mL/min/1. 73m2 LAB CHEMISTRY METHOD 09/14/2024 9:52 AM [facility] Comment:Calculation based on the??Chronic Kidney Disease Epidemiology Collaboration (CKD-EPI) equation refit??without adjustment for race. BUN/Creatinine Ratio 21.5 LAB CHEMISTRY METHOD 09/14/2024 9:52 AM [facility] Calcium 9.6 8.5 - 10.5 mg/dL LAB CHEMISTRY METHOD 09/14/2024 9:52 AM [facility] AST (SGOT) 28 10 - 42 unit/L LAB CHEMISTRY METHOD 09/14/2024 9:52 AM [facility] ALT (SGPT) 68(H) 10 - 60 unit/L LAB CHEMISTRY METHOD 09/14/2024 9:[address] [facility] Alkaline Phosphatase 232(H) 42 - 121 unit/L LAB CHEMISTRY METHOD 09/14/2024 9:52 AM [facility] Total Protein 5.0(L) 6.0 - 8.0 g/dL LAB CHEMISTRY METHOD 09/14/2024 9:52 AM [facility] Albumin 2.8(L) 3.2 - 5.0 g/dL LAB CHEMISTRY METHOD 09/14/2024 9:52 AM [facility] Total Bilirubin 0.4 0.0 - 1.4 mg/dL LAB CHEMISTRY METHOD 09/14/2024 9:52 AM [facility] Blood Venous blood specimen / Unknown Venipuncture / Unknown 09/14/2024 6:28 AM EST 09/14/2024 8:05 AM EST us Baldemar Blackman MD LAB BLOOD ORDERABLES Final Res ult [facility] [address] [place] [address], documented in this encounter Visit Diagnoses Diagnosis Encounter for other general examination documented in this encounter Care Teams Electromechanisms Design Drafter Relationship Specialty Start Date End Date Baldemar Blackman MD [address] [place] [phone] PCP - General Internal Medicine 09/14/24 documented as of this encounter
--- OUTSIDE RECORDS SUMMARY | 2025-01-14 14:33 | XMS_ITS | Clinical Summary ---
Author Organization [facility] Address [address] [place] [address] Care Team Providers Care Sand Mill Operator Name Role Phone Dina Wall Primary Care Provider [phone] Medications No known medications Social History Tobacco [...] Zoster (Zostavax) Discontinued Insurance FFS Care Teams Sand Mill Operator Relationship Specialty Start Date End Date Dina Wall [facility] [address] [place] [phone] PCP - General Internal Medicine 12/18/12
--- OUTSIDE RECORDS SUMMARY | 2025-01-14 14:33 | XMS_ITS | Encounter Summary ---
Author Organization [facility] Address [address] [place] [address] Care Team Providers Care Buttermilk Drier Operator Name Role Phone Baldemar Blackman MD Primary Care Provider [phone] Encounter Details Date Type Department Care Team (Late st Contact Info) Description 09/10/[address] [facility] Lab [address] [place] [address] Baldemar Blackman MD [address] [place] [address] Encounter for other general examination Social History [...] LAB HEMETOLOGY METHOD 09/10/2024 9:11 AM EST [facility] RBC 3.60(L) 3.80 - 4.80 M/[facility] LAB HEMETOLOGY METHOD 09/10/2024 9:11 AM EST [facility] Hemoglobin 9.7(L) 11.5 - 16.0 g/dL LAB HEMETOLOGY METHOD 09/10/2024 9:11 AM [facility] Hematocrit 31.3(L) 35.0 - 47.0 % LAB HEMETOLOGY METHOD 09/10/2024 9:11 AM [facility] MCV 88.2 79.0 - 98.0 FL LAB HEMETOLOGY METHOD 09/10/2024 9:11 AM [facility] MCH 27.3 27.0 - 32.0 pcg LAB HEMETOLOGY METHOD 09/10/2024 9:11 AM [facility] MCHC 31.0(L) 32.0 - 37.0 g/dL LAB HEMETOLOGY METHOD 09/10/2024 9:11 AM [facility] RDW 14.4 11.0 - 15.0 % LAB HEMETOLOGY METHOD 09/10/2024 9:11 AM [facility] Platelets 273 130 - 400 K/mcL LAB HEMETOLOGY METHOD 09/10/2024 9:11 AM [facility] MPV 10.3 7.0 - 11.0 FL LAB HEMETOLOGY METHOD 09/10/2024 9:11 AM [facility] NRBC 0.0 <1.0 % LAB HEMETOLOGY METHOD 09/10/2024 9:11 AM EST [facility] NRBC Absolute 0.00 <0.10 K/mcL LAB HEMETOLOGY METHOD 09/10/2024 9:11 AM [facility] Blood Venous blood specimen / Unknown Venipuncture / Unknown 09/10/2024 5:58 AM EST 09/10/2024 8:24 AM EST us Baldemar Blackman MD LAB BLOOD ORDERABLES Final Res ult [facility] [address] [place] [address], [place] [phone] * (ABNORMAL) Basic metabolic panel (09/10/2024 5:58 AM EST) Sodium 140 133 - 145 mmol/L LAB CHEMISTRY METHOD 09/10/2024 9:26 AM [facility] Potassium 4.4 3.5 - 5.5 mmol/L LAB CHEMISTRY METHOD 09/10/2024 9:26 AM [facility] Chloride 107 96 - 110 mmol/L LAB CHEMISTRY METHOD 09/10/2024 9:26 AM [facility] CO2 30 21 - 32 mmol/L LAB CHEMISTRY METHOD 09/10/2024 9:26 AM [facility] Anion Gap 3 3 - 11 LAB CHEMISTRY METHOD 09/10/2024 9:26 AM [facility] Glucose 85 70 - 100 mg/dL LAB CHEMISTRY METHOD 09/10/2024 9:26 AM [facility] BUN 23 5 - 25 mg/dL LAB CHEMISTRY METHOD 09/10/2024 9:26 AM [facility] Creatinine 1.09 0.50 - 1.10 mg/dL LAB CHEMISTRY METHOD 09/10/2024 9:26 AM [facility] eGFR 53(L) >=60 mL/min/1. 73m2 LAB CHEMISTRY METHOD 09/10/2024 9:26 AM [facility] Comment:Calculation based on the??Chronic Kidney Disease Epidemiology Collaboration (CKD-EPI) equation refit??without adjustment for race. BUN/Creatinine Ratio 21.1 LAB CHEMISTRY METHOD 09/10/2024 9:26 AM [facility] Calcium 9.3 8.5 - 10.5 mg/dL LAB CHEMISTRY METHOD 09/10/2024 9:26 AM [facility] Blood Venous blood specimen / Unknown Venipuncture / Unknown 09/10/2024 5:58 AM EST 09/10/2024 8:24 AM EST us Baldemar Blackman MD LAB BLOOD ORDERABLES Final Res ult [facility] [address] [place] [address], documented in this encounter Visit Diagnoses Diagnosis Encounter for other general examination documented in this encounter Care Teams Buttermilk Drier Operator Relationship Specialty Start Date End Date Baldemar Blackman MD [address] [place] [phone] PCP - General Internal Medicine 09/14/24 documented as of this encounter
--- OUTSIDE RECORDS SUMMARY | 2025-01-14 14:33 | XMS_ITS | Clinical Summary ---
Author Organization 299 [facility] Address [address] [place] [address] Phone Care Team Providers Care Artificial Breeding Technician Name Role Phone Baldemar Blackman MD Primary Care Provider [phone] Social History Tobacco Use Types Packs/Day Years [...] Vaccines (1 of 2) 1998 RSV Immunization Adult Patie nts (1 - 1-dose 75+ series) 2023 Cholesterol Screening (Lipid Panel) 10/24/2023 Depression Screening 10/24/2023 Falls Risk Assessment 10/24/2023 Hepatitis C Screening 10/24/2023 Osteoporosis Screening (Bone Density Screening) 10/24/2023 Social Influencers of Health Screening 10/24/2023 COVID-19 Vaccine ( - 2023-2 5 season) 2024 Influenza Vaccine (Season Ended) 2025 HIB Vaccines Aged Out No longer eligi [...] age to complete this topic Meningococcal B Vaccine Aged Out No l onger eligible based on patient's age to complete this topic RSV Immunization Patients Un alan 20 months Aged Out No longer eligible b ased on patient's age to complete this topic Varicella Vaccines Aged Out No longer eligible based on patient's age to complete this topic Care Teams Artificial Breeding Technician Relationship Specialty Start Date End Date Baldemar Blackman MD [address] [place] [phone] PCP - General Internal Medicine 09/14/24
== END 2025-01-14 12:51 | disposition home or self-care (01) ==
LOC: HO.HGI 11:38
PROVIDERS: PCP Nurse Practitioner Family; Visit Provider Nurse Practitioner
DX: K30 Functional dyspepsia (principal); K59.04 Chronic idiopathic constipation; K22.70 Barrett's esophagus without dysplasia; M17.0 Bilateral primary osteoarthritis of knee; Q40.3 Congenital malformation of stomach, unspecified; B37.9 Candidiasis, unspecified
CPT/HCPCS: 99213

== ENCOUNTER → 2025-01-14 11:37 | Outpatient (BNVA) | payer MEDICARE, SELFPAY | PROVIDERS: PCP Nurse Practitioner Family; Visit Provider Nurse Practitioner | DX: Q40.3 Congenital malformation of stomach, unspecified (principal); K30 Functional dyspepsia; K59.04 Chronic idiopathic constipation; K22.70 Barrett's esophagus without dysplasia; M17.0 Bilateral primary osteoarthritis of knee; B37.9 Candidiasis, unspecified | CPT/HCPCS: 99212 ==

== ENCOUNTER 2025-01-19 12:44 | Outpatient (REF) | payer MEDICARE, SELFPAY ==
--- NOTE | ~2025-01-19 | CT_ITS ---
CLINICAL HISTORY: PULMONARY NODULE,BROCHIECTASIS CT chest without contrast Comparison: CT/SR - CT CHEST WO IV CON - 07/09/24 12:54 EDT Findings: The heart size is normal. There is ectasia of the ascending thoracic aorta measuring up to 3.8 cm. There is prominence of the main pulmonary trunk measuring up to 3.2 cm. Moderate atherosclerotic disease of the coronary arteries. The visualized thyroid and mediastinum are unremarkable. Stable 3 mm peripheral right upper lobe nodule, axial 20. No new or increasing nodule identified. Chronic changes with airway thickening and regions of scarring and subpleural reticulation most pronounced peripherally in the right lung base. No effusion. No pneumothorax. Postsurgical changes along the right chest wall. The visualized upper abdomen demonstrates cholecystectomy clips. No acute osseous finding. Impression: Stable 3 mm right apical nodule. Chronic changes within the lungs. One final 12 month follow-up recommended to establish 2 year stability. This document has been electronically signed by: Omari Mehta MD on 01/21/2025 05:34:47
--- OUTSIDE RECORDS SUMMARY | 2025-01-19 15:06 | XMS_ITS | Encounter Summary ---
Author Organization [facility] Address [address] [place] [address] Care Team Providers Care Client Development Consultant Name Role Phone Baldeamr Blackman MD Primary Care Provider Encounter Details Date Type Department Care Team (Late st Contact Info) Description 09/10/2024 Lab Requisition [facility] [address] [place] [address] Baldemar Blackman MD [address] [place] [address] Encounter for other general examination Social History [...] LAB HEMETOLOGY METHOD 09/10/2024 9:11 AM EST [facility] RBC 3.60(L) 3.80 - 4.80 M/[facility] LAB HEMETOLOGY METHOD 09/10/2024 9:11 AM EST [facility] Hemoglobin 9.7(L) 11.5 - 16.0 g/dL LAB HEMETOLOGY METHOD 09/10/2024 9:[address] [facility] Hematocrit 31.3(L) 35.0 - 47.0 % LAB HEMETOLOGY METHOD 09/10/2024 9:[address] [facility] MCV 88.2 79.0 - 98.0 FL LAB HEMETOLOGY METHOD 09/10/2024 9:[address] [facility] MCH 27.3 27.0 - 32.0 pcg LAB HEMETOLOGY METHOD 09/10/2024 9:[address] [facility] MCHC 31.0(L) 32.0 - 37.0 g/dL LAB HEMETOLOGY METHOD 09/10/2024 9:[address] [facility] RDW 14.4 11.0 - 15.0 % LAB HEMETOLOGY METHOD 09/10/2024 9:[address] [facility] Platelets 273 130 - 400 K/mcL LAB HEMETOLOGY METHOD 09/10/2024 9:[address] [facility] MPV 10.3 7.0 - 11.0 FL LAB HEMETOLOGY METHOD 09/10/2024 9:[address] [facility] NRBC 0.0 <1.0 % LAB HEMETOLOGY METHOD 09/10/2024 9:11 AM EST [facility] NRBC Absolute 0.00 <0.10 K/mcL LAB HEMETOLOGY METHOD 09/10/2024 9:[address] [facility] Blood Venous blood specimen / Unknown Venipuncture / Unknown 09/10/2024 5:58 AM EST 09/10/2024 8:24 AM EST us Baldemar Blackman MD LAB BLOOD ORDERABLES Final Res ult [facility] [address] [place] [address], [place] [phone] * (ABNORMAL) Basic metabolic panel (09/10/2024 5:58 AM EST) Sodium 140 133 - 145 mmol/L LAB CHEMISTRY METHOD 09/10/2024 9:[address] [facility] Potassium 4.4 3.5 - 5.5 mmol/L LAB CHEMISTRY METHOD 09/10/2024 9:[address] [facility] Chloride 107 96 - 110 mmol/L LAB CHEMISTRY METHOD 09/10/2024 9:[address] [facility] CO2 30 21 - 32 mmol/L LAB CHEMISTRY METHOD 09/10/2024 9:[address] [facility] Anion Gap 3 3 - 11 LAB CHEMISTRY METHOD 09/10/2024 9:[address] [facility] Glucose 85 70 - 100 mg/dL LAB CHEMISTRY METHOD 09/10/2024 9:[address] [facility] BUN 23 5 - 25 mg/dL LAB CHEMISTRY METHOD 09/10/2024 9:[address] [facility] Creatinine 1.09 0.50 - 1.10 mg/dL LAB CHEMISTRY METHOD 09/10/2024 9:[address] [facility] eGFR 53(L) >=60 mL/min/1. 73m2 LAB CHEMISTRY METHOD 09/10/2024 9:[address] [facility] Comment:Calculation based on the??Chronic Kidney Disease Epidemiology Collaboration (CKD-EPI) equation refit??without adjustment for race. BUN/Creatinine Ratio 21.1 LAB CHEMISTRY METHOD 09/10/2024 9:[address] [facility] Calcium 9.3 8.5 - 10.5 mg/dL LAB CHEMISTRY METHOD 09/10/2024 9:[address] [facility] Blood Venous blood specimen / Unknown Venipuncture / Unknown 09/10/2024 5:58 AM EST 09/10/2024 8:24 AM EST us Baldemar Blackman MD LAB BLOOD ORDERABLES Final Res ult [facility] [address] [place] [address], documented in this encounter Visit Diagnoses Diagnosis Encounter for other general examination documented in this encounter Care Teams Client Development Consultant Relationship Specialty Start Date End Date Baldemar Blackman MD [address] [place] [phone] PCP - General Internal Medicine 09/14/24 documented as of this encounter
--- OUTSIDE RECORDS SUMMARY | 2025-01-19 15:06 | XMS_ITS | Clinical Summary ---
Author Organization 299 [facility] Address [address] [place] [address] Phone Care Team Providers Care Insulation Worker Furnace Installer Name Role Phone Baldemar Blackman MD Primary Care Provider [phone] Social History Tobacco Use Types Packs/Day Years [...] age to complete this topic Care Teams Insulation Worker Furnace Installer Relationship Specialty Start Date End Date Baldemar Blackman MD [address] [place] [phone] PCP - General Internal Medicine 09/14/24
--- OUTSIDE RECORDS SUMMARY | 2025-01-19 15:06 | XMS_ITS | Encounter Summary ---
Author Organization [facility] Address [address] [place] [address] Care Team Providers Care Data Officer Name Role Phone Baldemar Blackman MD Primary Care Provider Encounter Details Date Type Department Care Team (Late st Contact Info) Description 09/14/2024 Lab Requisition [facility] - Main Lab [address] [place] [address] Baldemar Blackman MD [address] [place] [address] Encounter for other general examination Social History [...] HEMETOLOGY METHOD 09/14/2024 9:19 AM EST [facility] RBC 3.80 3.80 - 4.80 M/mcL LAB HEMETOLOGY METHOD 09/14/2024 9:19 AM EST [facility] Hemoglobin 10.2(L) 11.5 - 16.0 g/dL LAB HEMETOLOGY METHOD 09/14/2024 9:19 AM [facility] Hematocrit 33.4(L) 35.0 - 47.0 % LAB HEMETOLOGY METHOD 09/14/2024 9:19 AM [facility] MCV 88.8 79.0 - 98.0 FL LAB HEMETOLOGY METHOD 09/14/2024 9:19 AM EST [facility] MCH 27.1 27.0 - 32.0 pcg LAB HEMETOLOGY METHOD 09/14/2024 9:19 AM [facility] MCHC 30.5(L) 32.0 - 37.0 g/dL LAB HEMETOLOGY METHOD 09/14/2024 9:19 AM [facility] RDW 14.7 11.0 - 15.0 % LAB HEMETOLOGY METHOD 09/14/2024 9:19 AM [facility] Platelets 352 130 - 400 K/mcL LAB HEMETOLOGY METHOD 09/14/2024 9:19 AM [facility] MPV 9.9 7.0 - 11.0 FL LAB HEMETOLOGY METHOD 09/14/2024 9:19 AM [facility] NRBC 0.0 <1.0 % LAB HEMETOLOGY METHOD 09/14/2024 9:19 AM EST [facility] NRBC Absolute 0.00 <0.10 K/mcL LAB HEMETOLOGY METHOD 09/14/2024 9:19 AM [facility] Blood Venous blood specimen / Unknown Venipuncture / Unknown 09/14/2024 6:28 AM EST 09/14/2024 8:05 AM EST us Baldemar Blackman MD LAB BLOOD ORDERABLES Final Res ult [facility] [address] [place] [address], [place] [phone] * (ABNORMAL) Comprehensive metabolic panel (09/14/2024 6:28 AM EST) Sodium 143 133 - 145 mmol/L LAB CHEMISTRY METHOD 09/14/2024 9:52 AM [facility] Potassium 4.7 3.5 - 5.5 mmol/L LAB CHEMISTRY METHOD 09/14/2024 9:52 AM [facility] Chloride 107 96 - 110 mmol/L LAB CHEMISTRY METHOD 09/14/2024 9:52 AM [facility] CO2 28 21 - 32 mmol/L LAB CHEMISTRY METHOD 09/14/2024 9:52 AM [facility] Anion Gap 8 3 - 11 LAB CHEMISTRY METHOD 09/14/2024 9:52 AM [facility] Glucose 89 70 - 100 mg/dL LAB CHEMISTRY METHOD 09/14/2024 9:52 AM [facility] BUN 23 5 - 25 mg/dL LAB CHEMISTRY METHOD 09/14/2024 9:52 AM [facility] Creatinine 1.07 0.50 - 1.10 mg/dL LAB CHEMISTRY METHOD 09/14/2024 9:52 AM [facility] eGFR 54(L) >=60 mL/min/1. 73m2 LAB CHEMISTRY METHOD 09/14/2024 9:52 AM [facility] Comment:Calculation based on the??Chronic Kidney Disease Epidemiology Collaboration (CKD-EPI) equation refit??without adjustment for race. BUN/Creatinine Ratio 21.5 LAB CHEMISTRY METHOD 09/14/2024 9:52 AM [facility] Calcium 9.6 8.5 - 10.5 mg/dL LAB CHEMISTRY METHOD 09/14/2024 9:52 AM [facility] AST (SGOT) 28 10 - 42 unit/L LAB CHEMISTRY METHOD 09/14/2024 9:52 AM [facility] ALT (SGPT) 68(H) 10 - 60 unit/L LAB CHEMISTRY METHOD 09/14/2024 9:52 AM EST [facility] Alkaline Phosphatase 232(H) 42 - 121 unit/L LAB CHEMISTRY METHOD 09/14/2024 9:52 AM [facility] Total Protein 5.0(L) 6.0 - 8.0 g/dL LAB CHEMISTRY METHOD 09/14/2024 9:52 AM [facility] Albumin 2.8(L) 3.2 - 5.0 g/dL LAB CHEMISTRY METHOD 09/14/2024 9:52 AM [facility] Total Bilirubin 0.4 0.0 - 1.4 mg/dL LAB CHEMISTRY METHOD 09/14/2024 9:52 AM [facility] Blood Venous blood specimen / Unknown Venipuncture / Unknown 09/14/2024 6:28 AM EST 09/14/2024 8:05 AM EST us Baldemra Blackman MD LAB BLOOD ORDERABLES Final Res ult [facility] [address] [place] [address], documented in this encounter Visit Diagnoses Diagnosis Encounter for other general examination documented in this encounter Care Teams Data Officer Relationship Specialty Start Date End Date Baldemar Blackman MD [address] [place] [phone] PCP - General Internal Medicine 09/14/24 documented as of this encounter
--- OUTSIDE RECORDS SUMMARY | 2025-01-19 15:06 | XMS_ITS | Data Portability ---
Author Organization [place] [facility], [facility] Address [address] [place] [address] Assessment Encounter Date Assessment Date Assessment LastModified [...] SNOMED-CT Code Diagnosis ICD10 Code Diagnosis Note [id number] SHARI MCBRIDE MD [facility] Office [address] [address] 10/05/2019 13:12:35 10/06/2019 16:21:54 Osteoarthritis of knee [id number] M17.11 Health Concerns Section Related Observation LastModified by Organization Detai ls LastModified Time None Recorded Concern Status LastModified by Organization Details LastModified Time None Recorded Advance Directives Directive None Recorded Payers Encounter Date Sequence Insurance Name Policy Number Policy Miles Covered Member ID Miles Member ID Guarantor Name 10/05/2019 1 [place] [employer] Reema Dalton [id number] Reema Dalton 10/05/2019 2 [facility] [id number] Reema Dalton [id number] Reema Dalton Notes Date Note Type [...] She also had an injection from her wave guide assembler about 5 years ago, again with limited [...] 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 She does feel like the pain has [...] patient is retired. 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 She does not smoke nor drink alcohol [...] Review of Systems negative. SHARI MCBRIDE MD [address] [place] [address], [place], [address], [facility] 10/09/2019 10:59:55 OBGyn Episode No OBEpisode recorded.
--- OUTSIDE RECORDS SUMMARY | 2025-01-19 15:06 | XMS_ITS | Clinical Summary ---
Author Organization [facility] Address [address] [place] [address] Care Team Providers Care Child Care Leader Name Role Phone Dina Wall Primary Care Provider [phone] Medications No known medications Social History Tobacco [...] Zoster (Zostavax) Discontinued Insurance FFS Care Teams Child Care Leader Relationship Specialty Start Date End Date Dina Wall [facility] [address] [place] [phone] PCP - General Internal Medicine 12/18/12
--- OUTSIDE RECORDS SUMMARY | 2025-01-19 15:06 | XMS_ITS | Encounter Summary ---
Author Organization [facility] [place] Address [address] [place] [address] Care Team Providers Care Stud Beef Cattle Farmer Name Role Phone Baldemar Blackman MD Primary Care Provider Encounter Details Date Type Department Care Team (Late st Contact Info) Description 09/05/2024 Lab Requisition [facility] - Main Lab [address] [place] [address] Baldemar Blackman MD [address] [place] [address] Encounter for other general examination Social History [...] LAB HEMETOLOGY METHOD 09/05/2024 11:10 AM EST [facility] RBC 3.80 3.80 - 4.80 M/mcL LAB HEMETOLOGY METHOD 09/05/2024 11:10 AM [facility] Hemoglobin 10.3(L) 11.5 - 16.0 g/dL LAB HEMETOLOGY METHOD 09/05/2024 11:10 AM [facility] Hematocrit 32.8(L) 35.0 - 47.0 % LAB HEMETOLOGY METHOD 09/05/2024 11:10 AM [facility] MCV 86.3 79.0 - 98.0 FL LAB HEMETOLOGY METHOD 09/05/2024 11:10 AM [facility] MCH 27.1 27.0 - 32.0 pcg LAB HEMETOLOGY METHOD 09/05/2024 11:10 AM [facility] MCHC 31.4(L) 32.0 - 37.0 g/dL LAB HEMETOLOGY METHOD 09/05/2024 11:10 AM [facility] RDW 14.8 11.0 - 15.0 % LAB HEMETOLOGY METHOD 09/05/2024 11:10 AM [facility] Platelets 170 130 - 400 K/mcL LAB HEMETOLOGY METHOD 09/05/2024 11:10 AM [facility] MPV 11.0 7.0 - 11.0 FL LAB HEMETOLOGY METHOD 09/05/2024 11:10 AM [facility] NRBC 0.0 <1.0 % LAB HEMETOLOGY METHOD 09/05/2024 11:10 AM [facility] NRBC Absolute 0.00 <0.10 K/mcL LAB HEMETOLOGY METHOD 09/05/2024 11:10 AM [facility] Neutrophils Relative 67.5 % LAB HEMETOLOGY METHOD 09/05/2024 11:10 AM [facility] Lymphocytes Relative 17.1 % LAB HEMETOLOGY METHOD 09/05/2024 11:10 AM [facility] Monocytes Relative 12.2 % LAB HEMETOLOGY METHOD 09/05/2024 11:10 AM [facility] Eosinophils Relative 2.7 % LAB HEMETOLOGY METHOD 09/05/2024 11:10 AM [facility] Basophils Relative 0.4 % LAB HEMETOLOGY METHOD 09/05/2024 11:10 AM [facility] Immature Granulocytes Relative 0.1 % LAB HEMETOLOGY METHOD 09/05/2024 11:10 AM [facility] Neutrophils Absolute 4.97 1.50 - 7.00 K/mcL LAB HEMETOLOGY METHOD 09/05/2024 11:10 AM [facility] Lymphocytes Absolute 1.26 1.00 - 5.00 K/mcL LAB HEMETOLOGY METHOD 09/05/2024 11:10 AM [facility] Monocytes Absolute 0.90 0.20 - 1.00 K/mcL LAB HEMETOLOGY METHOD 09/05/2024 11:10 AM [facility] Eosinophils Absolute 0.20 0.00 - 0.50 K/mcL LAB HEMETOLOGY METHOD 09/05/2024 11:10 AM [facility] Basophils Absolute 0.03 0.00 - 0.20 K/mcL LAB HEMETOLOGY METHOD 09/05/2024 11:10 AM [facility] Immature Granulocytes Absolute 0.01 0.00 - 0.03 K/mcL LAB HEMETOLOGY METHOD 09/05/2024 11:10 AM [facility] Blood Venous blood specimen / Unknown Venipuncture / Unknown 09/05/2024 6:54 AM EST 09/05/2024 9:50 AM EST us Baldemar Blackman MD LAB BLOOD ORDERABLES Final Res ult [facility] [address] [place] [address], [place] [phone] * (ABNORMAL) Magnesium (09/05/2024 6:54 AM EST) Magnesium 1.8(L) 1.9 - 2.6 mg/dL LAB CHEMISTRY METHOD 09/05/2024 11:31 AM EST [facility] Blood Venous blood specimen / Unknown Venipuncture / Unknown 09/05/2024 6:54 AM EST 09/05/2024 9:50 AM EST Baldemar Blackman MD LAB BLOOD ORDERABLES Final Res ult Performing Organization Address [facility]/State/ZIP Co de Phone Number [facility] [address] [place] [address], [place] [phone] * (ABNORMAL) Comprehensive metabolic panel (09/05/2024 6:54 AM EST) Pathologist [facility] Sodium 139 133 - 145 mmol/L LAB CHEMISTRY METHOD 09/05/2024 11:31 AM [facility] Potassium 4.4 3.5 - 5.5 mmol/L LAB CHEMISTRY METHOD 09/05/2024 11:31 AM [facility] Chloride 107 96 - 110 mmol/L LAB CHEMISTRY METHOD 09/05/2024 11:31 AM [facility] CO2 25 21 - 32 mmol/L LAB CHEMISTRY METHOD 09/05/2024 11:31 AM [facility] Anion Gap 7 3 - 11 LAB CHEMISTRY METHOD 09/05/2024 11:31 AM [facility] Glucose 85 70 - 100 mg/dL LAB CHEMISTRY METHOD 09/05/2024 11:31 AM [facility] BUN 23 5 - 25 mg/dL LAB CHEMISTRY METHOD 09/05/2024 11:31 AM [facility] Creatinine 0.92 0.50 - 1.10 mg/dL LAB CHEMISTRY METHOD 09/05/2024 11:31 AM [facility] eGFR 65 >=60 mL/min/1. 73m2 LAB CHEMISTRY METHOD 09/05/2024 11:31 AM [facility] Comment:Calculation based on the??Chronic Kidney Disease Epidemiology Collaboration (CKD-EPI) equation refit??without adjustment for race. BUN/Creatinine Ratio 25.0 LAB CHEMISTRY METHOD 09/05/2024 11:31 AM [facility] Calcium 9.3 8.5 - 10.5 mg/dL LAB CHEMISTRY METHOD 09/05/2024 11:31 AM [facility] AST (SGOT) 87(H) 10 - 42 unit/L LAB CHEMISTRY METHOD 09/05/2024 11:31 AM [facility] ALT (SGPT) 98(H) 10 - 60 unit/L LAB CHEMISTRY METHOD 09/05/2024 11:31 AM [facility] Alkaline Phosphatase 305(H) 42 - 121 unit/L LAB CHEMISTRY METHOD 09/05/2024 11:31 AM [facility] Total Protein 4.9(L) 6.0 - 8.0 g/dL LAB CHEMISTRY METHOD 09/05/2024 11:31 AM [facility] Albumin 2.6(L) 3.2 - 5.0 g/dL LAB CHEMISTRY METHOD 09/05/2024 11:31 AM [facility] Total Bilirubin 0.6 0.0 - 1.4 mg/dL LAB CHEMISTRY METHOD 09/05/2024 11:31 AM [facility] Blood Venous blood specimen / Unknown Venipuncture / Unknown 09/05/2024 6:54 AM EST 09/05/2024 9:50 AM EST us Baldemar Blackman MD LAB BLOOD ORDERABLES Final Res ult [facility] [address] [place] [address], documented in this encounter Visit Diagnoses Diagnosis Encounter for other general examination documented in this encounter Care Teams Stud Beef Cattle Farmer Relationship Specialty Start Date End Date Baldemar Blackman MD [address] [place] [address] PCP - General Internal Medicine 09/14/24 documented as of this encounter
== END 2025-01-19 12:45 | disposition home or self-care (01) ==
LOC: HO.CT 12:44
PROVIDERS: PCP Nurse Practitioner Family; Visit Provider Nurse Practitioner Family
DX: R91.1 Solitary pulmonary nodule (principal); J47.9 Bronchiectasis, uncomplicated
CPT/HCPCS: 71250

== ENCOUNTER → 2025-01-19 12:46 | Outpatient (BNV) | payer MEDICARE, SELFPAY | PROVIDERS: PCP Nurse Practitioner Family; Visit Provider Radiology Vascular & Interventional Radiology | DX: R91.1 Solitary pulmonary nodule (principal) | CPT/HCPCS: 71250 ==

== ENCOUNTER 2025-02-26 14:42 | Outpatient (AMB) | payer MEDICARE, SELFPAY ==
--- NOTE | 2025-02-26 14:45 | A.OFFVIS_ITS ---
Vital Signs 02/26/25 14:46 Height 5 ft 6 in Weight 210 lb BMI 33.9 BP 162/66 H Blood Pressure Location Lt brachial Position Sitting Pulse 60 Pulse Source Pulse Oximeter Pulse Oximetry (%) 96 Oxygen Delivery Method Room Air Intake Visit Reasons: Cough/CT Follow Up Allergies adhesive Allergy (Severe, Verified 02/26/25 14:49) Hives ondansetron [From ZOFRAN ( HYDROCHLORIDE)] Allergy (Unknown, Verified 02/26/25 14:49) ANAPHYLAXIS HPI HPI Cough/CT Follow Up: Details: Reema is a pleasant 74 year old female, never smoker, with underlying lupus, h/o right breast cancer s/p radiation 2008, CKD and hypothyroidism. She was initially referred for abnormal chest CT questioning ILD well as chronic cough since having COVID last year. She was also started on ICS, with minimal improvement in symptoms and infrequent use of albuterol MDI. She continues to report intermittent cough with clear to white sputum and associated post nasal drip however can not tolerate nasal sprays as she develops significant epistaxis. At this time, she would like to defer any further medications and monitor symptoms. Today she presents to review chest CT. PFT 04/2024: Mild restrictive ventilatory defect with bronchodilator response in small to medium airways only. Decreased expiratory reserve volume suggests ex trathoracic restriction likely secondary to abdominal obesity. Combination of restrictive ventilatory defect with decreased diffusion capacity suggests underlying pulmonary parenchymal disease. DLCO 70%. [facility] Medical History (Updated 03/01/25 @ 09:05 by Lo Coe NP) Pulmonary nodule Gastric dysplasia Osteoarthritis of left knee Osteoarthritis Elevated alkaline phosphatase level Osteoarthritis of right knee Right rotator cuff tear History of kidney disease Multiple adenomatous polyps Upper respiratory infection Spleen anomaly Dizziness SOB (shortness of breath) Vestibular disequilibrium Pre-op examination Preoperative cardiovascular examination Bilateral knee pain Postmenopausal Breast cancer Fracture of femoral neck, left Preoperative clearance Early satiety Nausea Right shoulder pain Nausea and vomiting History of breast cancer Skin lesions Screening for lipid disorders Irritable bowel syndrome with constipation Screening for colon cancer Physical exam History of sepsis CKD (chronic kidney disease) CLYDE (obstructive sleep apnea) Clostridium difficile infection Lupus Glaucoma Sleep apnea Hypothyroidism Closed fracture of neck of left femur Fibromyalgia Surgical History History of total right knee replacement (TKR) History of total right knee replacement H/O shoulder surgery Hx of tonsillectomy History of hip surgery History of esophagogastroduodenoscopy (EGD) H/O colonoscopy History of cholecystectomy Family History Father Heart attack Clogged artery (heart) COPD (chronic obstructive pulmonary disease) Mother Stroke Clogged artery (heart) Sister COPD (chronic obstructive pulmonary disease) Brother COPD (chronic obstructive pulmonary disease) Social History Household Members: None Housing: Apartment Housing Other:: [facility] Patient Tobacco Use Status: Never used Tobacco e-Cigarette/Vaping Use: Never Used Second Hand Smoke Exposure: No service: No Current occupational status: retired Gender identity: Female Cognitive needs: No Hearing needs: No Vision needs: No Review of Systems Const Denies chills, Denies excessive sweating, Denies fever(s), Denies headache(s) and Denies night sweats Eyes Denies dry eyes, Denies irritation and Denies itchy eyes ENT Reports Normal hearing present, Denies headache(s), Denies nasal congestion, Denies nasal discharge, Reports post nasal drip and Denies sore throat Card Denies chest pain, Denies chest pain at rest, Denies chest pain with activity, Denies claudication, Denies leg edema, Reports dyspnea on exertion, Denies orthopnea and Denies paroxysmal nocturnal dyspnea Resp Denies chest congestion, Reports cough, Denies excessive phlegm production, Denies pain on inspiration, Denies pain with cough, Reports dyspnea on exertion and Denies stridor Musc Denies myalgias Neuro Reports Normal hearing present and Denies headache(s) Endo Denies excessive sweating Anibal/Lymph Denies lymphadenopathy Aller/Immun Denies itchy eyes and Denies seasonal rhinorrhea Physical Exam Vital Signs: Last Vital Signs Pulse 60 02/26/25 14:46 BP 162/66 H 02/26/25 14:46 Pulse Ox 96 02/26/25 14:46 Oxygen Delivery Method Room Air 02/26/25 14:46 BMI result Body Mass Index 33.9 Const General: cooperative, healthy appearing, comfortable, no acute distress, well developed and alert Nutritional Appearance: obese Orientation/consciousness: patient oriented x3 Limitations: no limitations HEENT Head: Yes normal to inspection, Yes normocephalic and Yes atraumatic Ears: hearing grossly normal bilaterally and external ears normal Eyes General: appearance normal, both eyes and all related structures Eyelids: Yes eyelids normal Sclerae: sclerae normal EOM: EOMs intact bilaterally Neck Neck: Yes normal visual inspection and Yes no lymphadenopathy Lymphatic: no lymphadenopathy noted Chest Chest palpation & inspection: normal inspection of the chest Resp Effort & Inspection: normal respiratory effort, able to speak in complete sentences, no audible wheezes, no cough, no stridor, not tachypneic, no tripod positioning and no use of accessory muscles Auscultation: clear to auscultation bilaterally Cardio Jugular venous distension: no JVD Rate: regular rate Rhythm: regular rhythm Skin Other: warm, dry General skin exam: no rashes or lesions noted Neuro General: patient oriented x3 Cranial nerves: Yes Normal hearing present Cognition (Neuro): normal cognition Gait exam (Neuro): Normal gait present Extrem General: Yes normal to inspection, Yes capillary refill normal, Yes no clubbing, cyanosis or edema and Yes no pedal edema Psych Appearance: grossly normal and well kempt Speech and movement: Normal speech and movement present and Clear speech present Affect: normal affect Attitude: cooperative Thought process: Normal thought process present Thought content: Normal thought content present Insight: Good insight present (Psych) Judgement: Good judgement present (Psych) Results Reviewed Results Reviewed: [place] [address] CT Scan Report Signed Patient: Reema Dalton MR#: [id number] : 1950 Acct:[id number] Age/Sex: 74 / F ADM Date: 01/19/25 Loc: HO.CT Attending Dr: Lo Coe NP Ordering Physician: Lo Coe NP Date of Service: 01/19/25 Procedure(s): CT chest wo IV con Accession Number(s): [id number] cc: Tushar Arroyo TUNNEL WORKER-BC; Lo Coe NP~ Report Number: [id number]: Total DLP = 214.00 mGy-cm CLINICAL HISTORY: PULMONARY NODULE,BROCHIECTASIS CT chest without contrast Comparison: CT/SR - CT CHEST WO IV CON - 07/09/24 12:54 EDT Findings: The heart size is normal. There is ectasia of the ascending thoracic aorta measuring up to 3.8 cm. There is prominence of the main pulmonary trunk measuring up to 3.2 cm. Moderate atherosclerotic disease of the coronary arteries. The visualized thyroid and mediastinum are unremarkable. Stable 3 mm peripheral right upper lobe nodule, axial 20. No new or increasing nodule identified. Chronic changes with airway thickening and regions of scarring and subpleural reticulation most pronounced peripherally in the right lung base. No effusion. No pneumothorax. Postsurgical changes along the right chest wall. The visualized upper abdomen demonstrates cholecystectomy clips. No acute osseous finding. Impression: Stable 3 mm right apical nodule. Chronic changes within the lungs. One final 12 month follow-up recommended to establish 2 year stability. This document has been electronically signed by: Omari Mehta MD on 01/21/2025 05:34:47 Dictated By: Omari Mehta MD Signed By: <Electronically signed by Omari Mehta MD in OV> 01/21/25 0535 DD/ 0534 TD/TT: 01/21/2534 Costumer: Assessment & Plan Assessment & Plan (1) Chronic cough: Code(s): R05.3 - Chronic cough Category: Medical (2) Bronchiectasis: Code(s): J47.9 - Bronchiectasis, uncomplicated Category: Medical (3) Dyspnea on exertion: Code(s): R06.09 - Other forms of dyspnea Category: Medical (4) Pulmonary nodule: Code(s): R91.1 - Solitary pulmonary nodule Category: Medical Plan Reviewed chest CT which revealed stable 3 mm right apical nodule, will repeat in one year to assess stability. If no changes, then no further need for follow up unless symptoms warrant. At this time, Reema reports cough is mild and would like to defer any medications at this time. She is aware to call if she would like to consider an alternative inhaler. All questions were answered and patient is in agreement of plan. Will follow up in in 6-12 months or sooner if needed. Orders: Orders CT chest wo IV con 10 Months R91.1 - Solitary pulmonary nodule Medications: Discontinued fluticasone furoate-vilanterol 100-25 mcg/dose (Breo Ellipta) Discontinued Reason: Patient Completed Course 1 inh inhalation DAILY 60 ea 3RF Coding Level of Care Code Est Pt Level 4 (97785) Diagnoses Chronic cough R05.3 Bronchiectasis J47.9 Dyspnea on exertion R06.09 Pulmonary nodule R91.1
[2025-02-26 14:46] VITALS: BP 162/66; PULSE 60; O2SAT 96; BMI 33.9
== END 2025-02-26 15:29 | disposition home or self-care (01) ==
LOC: HO.HPSW 14:43
PROVIDERS: PCP Nurse Practitioner Family; Visit Provider Nurse Practitioner Family
DX: R05.3 Chronic cough (principal); J47.9 Bronchiectasis, uncomplicated; R06.09 Other forms of dyspnea; R91.1 Solitary pulmonary nodule
CPT/HCPCS: 99214

== ENCOUNTER → 2025-02-26 14:42 | Outpatient (BNVA) | payer MEDICARE, SELFPAY | PROVIDERS: PCP Nurse Practitioner Family; Visit Provider Nurse Practitioner Family | DX: R91.1 Solitary pulmonary nodule (principal); R05.3 Chronic cough; R06.09 Other forms of dyspnea; J47.9 Bronchiectasis, uncomplicated | CPT/HCPCS: 99212 ==

== ENCOUNTER 2025-04-26 15:19 | Outpatient (AMB) | payer MEDICARE, SELFPAY ==
--- NOTE | 2025-04-26 15:28 | MHC.PC.OV ---
Vital Signs 04/26/25 15:30 Height 5 ft 6 in Weight 206 lb 8 oz BMI 33.3 BP 140/76 H Blood Pressure Location Lt brachial Position Sitting Respiration 16 Pulse 95 Pulse Source Pulse Oximeter Pulse Oximetry (%) 96 Oxygen Delivery Method Room Air Intake Visit Reasons: 4 months f/up Customs Director Required: No Accompanied by: Self / Same As Patient Allergies adhesive Allergy (Severe, Verified 04/26/25 15:28) Hives ondansetron (From ZOFRAN ( HYDROCHLORIDE)) Allergy (Unknown, Verified 04/26/25 15:28) ANAPHYLAXIS Tobacco use date assessed: 04/26/25 Fall risk assessment: No Falls in past year Last assessed Fall Risk: 04/26/25 Dental Screening Dental Screen Date: 04/26/25 Did you have a dental visit in the last 12 months?: Yes Did you have a dental problem in the last 6 months where you did not have access to dental care?: No Was dental information given to patient?: Patient has dentist HPI 4 months f/up HPI Details Chief Complaint The patient presents with persistent pain following right total knee arthroplasty. History of Present Illness The patient is a 74-year-old female presenting with postoperative pain following right total knee arthroplasty. The surgery was performed in August 2024, and she experienced severe pain postoperatively. She underwent extensive physical therapy and reports improvement, although she is not yet fully recovered. The pain is primarily located inferior and superior to the right knee, exacerbated when sleeping on her side. She denies swelling but notes intermittent warmth inferior to the patella. She is able to extend and flex the knee without difficulty. The patient is following up with her orthopedic surgeon and continues stretching and strength training as advised by physical therapy. Additionally, she is managing Irritable Bowel Syndrome (IBS-cd) with ongoing care from her equipment engineering technician. Social History Health Maintenance Review of Systems - Musculoskeletal: Reports pain inferior and superior to the right knee, denies swelling, reports intermittent warmth - Respiratory: Denies cough, hemoptysis, or wheezing Physical Exam General: Cooperative, healthy appearing, comfortable, no acute distress and well developed Orientation: Patient oriented x3 Limitations: No limitations Head: Normal to inspection Ears: Hearing grossly normal bilaterally Nose: Normal external nose present Face and sinus: Normal facial exam Eyes: Appearance normal, both eyes and all related structures Neck: Normal visual inspection and Yes full ROM Respiratory: Slightly diminished bilaterally Cardiovascular: Regular rate and rhythm. Normal S1 and S2 GI: Normal to inspection. Soft to palpation and nontender Skin: No rashes or lesions noted Neuro: Patient oriented x3 Extremities: Normal to inspection, no warmth to right knee, able to extend and flex (at knee). Results Plan The patient will continue to follow up with her orthopedic surgeon to monitor the progress of her postoperative recovery. She is encouraged to maintain the stretching and strength training regimen provided by her physical therapist to aid in her recovery. For her Irritable Bowel Syndrome, she will continue management with her equipment engineering technician. Discussion Notes I discussed with the patient the importance of continuing her physical therapy exercises to improve her knee function and reduce pain. We also talked about the need for regular follow-up with her orthopedic surgeon to ensure proper healing and address any ongoing issues. Patient Instructions - Continue physical therapy exercises as instructed. - Follow up with your orthopedic surgeon as scheduled. - Continue management of IBS with your equipment engineering technician. [facility] Medical History (Updated 04/26/25 @ 17:15 by URBANO [place]) Pulmonary nodule Gastric dysplasia Osteoarthritis of left knee Osteoarthritis Elevated alkaline phosphatase level Osteoarthritis of right knee Right rotator cuff tear History of kidney disease Multiple adenomatous polyps Upper respiratory infection Spleen anomaly Dizziness SOB (shortness of breath) Vestibular disequilibrium Pre-op examination Preoperative cardiovascular examination Bilateral knee pain Postmenopausal Breast cancer Fracture of femoral neck, left Preoperative clearance Early satiety Nausea Right shoulder pain Nausea and vomiting History of breast cancer Skin lesions Screening for lipid disorders Irritable bowel syndrome with constipation Screening for colon cancer Physical exam History of sepsis CKD (chronic kidney disease) CLYDE (obstructive sleep apnea) Clostridium difficile infection Lupus Glaucoma Sleep apnea Hypothyroidism Closed fracture of neck of left femur Fibromyalgia Surgical History (Updated 04/26/25 @ 17:15 by URBANO [place]) History of total right knee replacement (TKR) History of total right knee replacement H/O shoulder surgery Hx of tonsillectomy History of hip surgery History of esophagogastroduodenoscopy (EGD) H/O colonoscopy History of cholecystectomy Family History Father Heart attack Clogged artery (heart) COPD (chronic obstructive pulmonary disease) Mother Stroke Clogged artery (heart) Sister COPD (chronic obstructive pulmonary disease) Brother COPD (chronic obstructive pulmonary disease) Social History Household Members: None Housing: Apartment Housing Other:: penitentiary Patient Tobacco Use Status: Never used Tobacco e-Cigarette/Vaping Use: Never Used Second Hand Smoke Exposure: No service: No Current occupational status: retired Gender identity: Female Cognitive needs: No Hearing needs: No Vision needs: No Questionnaire PHQ-9 Over the last 2 weeks, how often have you been bothered by any of the following problems? 1. Little interest or pleasure in doing things: not at all 2. Feeling down, depressed, or hopeless: not at all 3. Trouble falling or staying asleep, or sleeping too much: more than half the days 4. Feeling tired or having little energy: more than half the days 5. Poor appetite or overeating: several days 6. Feeling bad about yourself - or that you are a failure or have let yourself or your family down: not at all 7. Trouble concentrating on things, such as reading the newspaper or watching television: not at all 8. Moving or speaking so slowly that other people could have noticed. Or the opposite - being so fidgety or restless that you have been moving around a lot more than usual: not at all 9. Thoughts that you would be better off or of hurting yourself in some way: not at all Total score: 5 Depression Screening Interpretation: Negative Depression Screening Done: Yes 77198 - PHQ-9 Billing: Yes Source: Developed by Drs. David Perez, Carole Michelle, Virgil Harris and colleagues, with an educational gifty from [email or web address]. Thrive Questionnaire Date Thrive assessed: 11/26/24 I am a: Patient What is your living situation today?: I have a steady place to live Within the past 12 months, did the food you bought not last and you didn't have the money to get more?: Never true Within the past 12 months, did you worry whether your food would run out before you got money to buy more?: Never true Do you have trouble paying for medicines?: No Do you have trouble getting transportation to medical appointments?: No Do you have trouble paying your heating and electricity bill?: No Do you have trouble taking care of your child, family member or friend?: No Do you have trouble with day-to-day activities such as bathing, preparing meals, shopping, managing finances, etc.?: I choose not to answer this question Are you currently unemployed and looking for a job?: No Are you interested in more education?: I choose not to answer this question Please select the resources that you would like help with: None Currently or been in a relationship where the following occur: I choose not to answer THRIVE Score: 0 SEEMA-7 AMB Questionnaire SEEMA-7 Date SEEMA - 7 assessed: 04/26/25 Feeling nervous, anxious, or on edge: 1 = Several days Not being able to stop or control worryin = Not at all Worrying too much about different things: 1 = Several days Trouble relaxin = Not at all Being so restless that it is hard to sit still: 0 = Not at all Becoming easily annoyed or irritable: 0 = Not at all Feeling afraid as if something awful might happen: 0 = Not at all Total SEEMA-7 score (0-4 normal; 5-9 mild; 10-14 moderate; 15-21 severe): 2 Source: Developed by Drs. David Perez, Carole Michelle, Virgil Harris and colleagues, with an educational gifty from [email or web address]. SEEMA-7 Assessment Billing SEEMA-7 Assessment Tool: SEEMA-7 Assessment 73923 Physical exam (Primary Care) Vital Signs: Last Vital Signs Pulse 95 04/26/25 15:30 Resp 16 04/26/25 15:30 BP 140/76 H 04/26/25 15:30 Pulse Ox 96 04/26/25 15:30 Oxygen Delivery Method Room Air 04/26/25 15:30 BMI result Body Mass Index 33.3 Tobacco/Smoking Status: Tobacco use Status Tobacco use date assessed 04/26/25 04/26/25 15:35 Patient Tobacco Use Status Never used Tobacco 04/26/25 15:35 e-Cigarette/Vaping Use Never Used 04/26/25 15:35 PHQ-9: PHQ-9 Score PHQ-9: Total score 5 04/26/25 15:35 Depression Screening Interpretation: Negative Thrive Assessment: Date of Thrive Assessment Date Thrive assessed 11/26/24 04/26/25 15:35 Currently or been in a relationship where the following occur: I choose not to answer Coding Level of Care Code Est Pt Level 3 (18991) Diagnoses Right knee pain M25.561 History of total right knee replacement Z96.651 Additional Codes SEEMA-7 Assessment Billing - SEEMA-7 Assessment Tool: SEEMA-7 Assessment 52101 ([id number]) PHQ-9 - 68971 - PHQ-9 Billing: Yes ([id number]) Assessment & Plan Assessment & Plan (1) Right knee pain: Code(s): M25.561 - Pain in right knee Category: Medical (2) History of total right knee replacement: Comment: 08/2024 Code(s): Z96.651 - Presence of right artificial knee joint Category: Surgical Plan .
[2025-04-26 15:30] VITALS: BP 140/76; PULSE 95; RESP 16; O2SAT 96; BMI 33.3
--- OUTSIDE RECORDS SUMMARY | 2025-04-26 15:41 | XMS_ITS | Encounter Summary ---
Author Organization [facility] Address [address] [place] [address] Care Team Providers Care Home Sales Consultant Name Role Phone Baldemar Blackman MD Primary Care Provider [phone] Encounter Details Date Type Department Care Team (Late st Contact Info) Description 09/05/2024 Lab Requisition [facility] - Main Lab [address] [place] [address] Baldemar Blackman MD [address] [place] [id number] Encounter for other general examination Social History [...] AM EST) WBC 7.4 4.8 - 10.8 K/[facility] LAB HEMETOLOGY METHOD 09/05/2024 11:10 AM EST [facility] RBC 3.80 3.80 - 4.80 M/mcL LAB HEMETOLOGY METHOD 09/05/2024 11:10 AM [facility] Hemoglobin 10.3(L) 11.5 - 16.0 g/dL LAB HEMETOLOGY METHOD 09/05/2024 11:10 AM [facility] LAB Hematocrit 32.8(L) 35.0 - 47.0 % LAB HEMETOLOGY METHOD 09/05/2024 11:10 AM [facility] LAB MCV 86.3 79.0 - 98.0 FL LAB HEMETOLOGY METHOD 09/05/2024 11:10 AM [facility] LAB MCH 27.1 27.0 - 32.0 pcg LAB HEMETOLOGY METHOD 09/05/2024 11:10 AM [facility] LAB MCHC 31.4(L) 32.0 - 37.0 g/dL LAB HEMETOLOGY METHOD 09/05/2024 11:10 AM [facility] LAB RDW 14.8 11.0 - 15.0 % LAB HEMETOLOGY METHOD 09/05/2024 11:10 AM [facility] LAB Platelets 170 130 - 400 K/mcL LAB HEMETOLOGY METHOD 09/05/2024 11:10 AM [facility] LAB MPV 11.0 7.0 - 11.0 FL LAB HEMETOLOGY METHOD 09/05/2024 11:10 AM [facility] LAB NRBC 0.0 <1.0 % LAB HEMETOLOGY METHOD 09/05/2024 11:10 AM [facility] LAB NRBC Absolute 0.00 <0.10 K/mcL LAB HEMETOLOGY METHOD 09/05/2024 11:10 AM [facility] LAB Neutrophils Relative 67.5 % LAB HEMETOLOGY METHOD 09/05/2024 11:10 AM [facility] Lymphocytes Relative 17.1 % LAB HEMETOLOGY METHOD 09/05/2024 11:10 AM [facility] Monocytes Relative 12.2 % LAB HEMETOLOGY METHOD 09/05/2024 11:10 AM [facility] Eosinophils Relative 2.7 % LAB HEMETOLOGY METHOD 09/05/2024 11:10 AM [facility] Basophils Relative 0.4 % LAB HEMETOLOGY METHOD 09/05/2024 11:10 AM [facility] Immature Granulocytes Relative 0.1 % LAB HEMETOLOGY METHOD 09/05/2024 11:10 AM [facility] Neutrophils Absolute 4.97 1.50 - 7.00 K/mcL LAB HEMETOLOGY METHOD 09/05/2024 11:10 AM [facility] Lymphocytes Absolute 1.26 1.00 - 5.00 K/mcL LAB HEMETOLOGY METHOD 09/05/2024 11:10 AM [facility] Monocytes Absolute 0.90 0.20 - 1.00 K/mcL LAB HEMETOLOGY METHOD 09/05/2024 11:10 AM [facility] Eosinophils Absolute 0.20 0.00 - 0.50 K/mcL LAB HEMETOLOGY METHOD 09/05/2024 11:10 AM [facility] Basophils Absolute 0.03 0.00 - 0.20 K/mcL LAB HEMETOLOGY METHOD 09/05/2024 11:10 AM [facility] Immature Granulocytes Absolute 0.01 0.00 - 0.03 K/mcL LAB HEMETOLOGY METHOD 09/05/2024 11:10 AM [facility] Blood Venous blood specimen / Unknown Venipuncture / Unknown 09/05/2024 6:54 AM EST 09/05/2024 9:50 AM EST us Baldemar Blackman MD LAB BLOOD ORDERABLES Final Res ult [facility] [address] [place] [address], [place] [phone] * (ABNORMAL) Magnesium (09/05/2024 6:54 AM EST) Magnesium 1.8(L) 1.9 - 2.6 mg/dL LAB CHEMISTRY METHOD 09/05/2024 11:[address] [facility] Blood Venous blood specimen / Unknown Venipuncture / Unknown 09/05/2024 6:54 AM EST 09/05/2024 9:50 AM EST Baldemar Blackman MD LAB BLOOD ORDERABLES Final Res ult Performing Organization Address [facility]/State/ZIP Co de Phone Number [facility] [address] [place] [address], [place] [phone] * (ABNORMAL) Comprehensive metabolic panel (09/05/2024 6:54 AM EST) Pathologist [facility] Sodium 139 133 - 145 mmol/L LAB CHEMISTRY METHOD 09/05/2024 11:31 AM [facility] Potassium 4.4 3.5 - 5.5 mmol/L LAB CHEMISTRY METHOD 09/05/2024 11:31 AM [facility] Chloride 107 96 - 110 mmol/L LAB CHEMISTRY METHOD 09/05/2024 11:31 AM [facility] CO2 25 21 - 32 mmol/L LAB CHEMISTRY METHOD 09/05/2024 11:31 AM [facility] Anion Gap 7 3 - 11 LAB CHEMISTRY METHOD 09/05/2024 11:31 AM [facility] Glucose 85 70 - 100 mg/dL LAB CHEMISTRY METHOD 09/05/2024 11:31 AM [facility] BUN 23 5 - 25 mg/dL LAB CHEMISTRY METHOD 09/05/2024 11:31 AM [facility] Creatinine 0.92 0.50 - 1.10 mg/dL LAB CHEMISTRY METHOD 09/05/2024 11:31 AM [facility] eGFR 65 >=60 mL/min/1. 73m2 LAB CHEMISTRY METHOD 09/05/2024 11:31 AM [facility] Comment:Calculation based on the Chronic Kidney Disease Epidemiology Collaboration (CKD-EPI) equation refit without adjustment for race. BUN/Creatinine Ratio 25.0 LAB CHEMISTRY METHOD 09/05/2024 11:31 AM [facility] Calcium 9.3 8.5 - 10.5 mg/dL LAB CHEMISTRY METHOD 09/05/2024 11:31 AM [facility] AST (SGOT) 87(H) 10 - 42 unit/L LAB CHEMISTRY METHOD 09/05/2024 11:31 AM [facility] ALT (SGPT) 98(H) 10 - 60 unit/L LAB CHEMISTRY METHOD 09/05/2024 11:31 AM [facility] Alkaline Phosphatase 305(H) 42 - 121 unit/L LAB CHEMISTRY METHOD 09/05/2024 11:31 AM [facility] Total Protein 4.9(L) 6.0 - 8.0 g/dL LAB CHEMISTRY METHOD 09/05/2024 11:31 AM [facility] Albumin 2.6(L) 3.2 - 5.0 g/dL LAB CHEMISTRY METHOD 09/05/2024 11:31 AM [facility] Total Bilirubin 0.6 0.0 - 1.4 mg/dL LAB CHEMISTRY METHOD 09/05/2024 11:31 AM [facility] Blood Venous blood specimen / Unknown Venipuncture / Unknown 09/05/2024 6:54 AM EST 09/05/2024 9:50 AM EST us Baldemar Blackman MD LAB BLOOD ORDERABLES Final Res ult [facility] [address] [place] [address], documented in this encounter Visit Diagnoses Diagnosis Encounter for other general examination documented in this encounter Care Teams Home Sales Consultant Relationship Specialty Start Date End Date Baldemar Blackman MD [address] [place] [id number] PCP - General Internal Medicine 09/14/24 documented as of this encounter
--- OUTSIDE RECORDS SUMMARY | 2025-04-26 15:41 | XMS_ITS | Data Portability ---
Author Organization [place] [facility], [facility] - INPATIENT Address [address] [place] [address] Assessment Encounter Date Assessment Date Assessment LastModified [...] SNOMED-CT Code Diagnosis ICD10 Code Diagnosis Note [id number] SHARI MCBRIDE MD [facility] Office [address] [address] 10/05/2019 13:12:35 10/06/2019 16:21:54 Osteoarthritis of knee [id number] M17.11 Health Concerns Section Related Observation LastModified by Organization Detai ls LastModified Time None Recorded Concern Status LastModified by Organization Details LastModified Time None Recorded Advance Directives Directive None Recorded Payers Insurance Date Sequence Insurance Name Policy Number Policy Miles Covered Member ID Miles Member ID Guarantor Name 01/08/2023 1 [place]: [employer] Reema Dalton [id number] Reema Dalton 01/08/2023 2 [facility] [id number] Reema Dalton [id number] Reema Dalton OBGyn Episode No OBEpisode recorded.
--- OUTSIDE RECORDS SUMMARY | 2025-04-26 15:41 | XMS_ITS | Clinical Summary ---
Author Organization [facility] Address [address] [place] [address] Care Team Providers Care Skein Washer Name Role Phone Dina Wall Primary Care Provider [phone] Medications No known medications Social History Tobacco [...] season) 2024 Influenza (#1) 2025 HPV Vaccine (No Doses Required) Completed Hep A Aged Out No longer eligi [...] Discontinued Zoster (Zostavax) Discontinued Insurance [employer] FFS Care Teams Skein Washer Relationship Specialty Start Date End Date Dina Wall [facility] [address] [place] [id number] PCP - General Internal Medicine 12/18/12
== END 2025-04-26 16:58 | disposition home or self-care (01) ==
LOC: HO.HMCC 15:20
PROVIDERS: PCP Nurse Practitioner Family; Visit Provider Nurse Practitioner Family
DX: M25.561 Pain in right knee (principal); Z96.651 Presence of right artificial knee joint

== ENCOUNTER → 2025-04-26 15:19 | Outpatient (BNVA) | payer MEDICARE, SELFPAY | PROVIDERS: PCP Nurse Practitioner Family; Visit Provider Nurse Practitioner Family | DX: T84.84XD Pain due to internal orthopedic prosthetic devices, implants and grafts, subsequent encounter (principal); Z96.651 Presence of right artificial knee joint | CPT/HCPCS: 96127; 99212 ==

== ENCOUNTER 2025-05-14 09:08 | Day surgery (SDC) | payer MEDICARE, SELFPAY ==
--- OUTSIDE RECORDS SUMMARY | 2025-04-12 14:43 | XMS_ITS | Encounter Summary ---
Author Organization [employer] [facility] Address [address] [place] [address] Care Team Providers Care Inspector Hairspring Truing Name Role Phone Baldemar Blackman MD Primary Care Provider Encounter Details Date Type Department Care Team (Late st Contact Info) Description 09/05/2024 Lab Requisition [facility] - Main Lab [address] [place] [address] Baldemar Blackman MD [address] [place] [phone] Encounter for other general examination Social History [...] EST) WBC 7.4 4.8 - 10.8 K/[facility] LAB HEMETOLOGY METHOD 09/05/2024 11:10 AM EST [facility] ([facility] LAB RBC 3.80 3.80 - 4.80 M/mcL LAB HEMETOLOGY METHOD 09/05/2024 11:10 AM [facility] Hemoglobin 10.3(L) 11.5 - 16.0 g/dL LAB HEMETOLOGY METHOD 09/05/2024 11:10 AM [facility] Hematocrit 32.8(L) 35.0 - 47.0 % LAB HEMETOLOGY METHOD 09/05/2024 11:10 AM [facility] MCV 86.3 79.0 - 98.0 FL LAB HEMETOLOGY METHOD 09/05/2024 11:10 AM [facility] MCH 27.1 27.0 - 32.0 pcg LAB HEMETOLOGY METHOD 09/05/2024 11:10 AM [facility] MCHC 31.4(L) 32.0 - 37.0 g/dL LAB HEMETOLOGY METHOD 09/05/2024 11:10 AM [facility] RDW 14.8 11.0 - 15.0 % LAB HEMETOLOGY METHOD 09/05/2024 11:10 AM [facility] Platelets 170 130 - 400 K/mcL LAB HEMETOLOGY METHOD 09/05/2024 11:10 AM [facility] MPV 11.0 7.0 - 11.0 FL LAB HEMETOLOGY METHOD 09/05/2024 11:10 AM [facility] NRBC 0.0 <1.0 % LAB HEMETOLOGY METHOD 09/05/2024 11:10 AM [facility] NRBC Absolute 0.00 <0.10 K/mcL LAB HEMETOLOGY METHOD 09/05/2024 11:10 AM [facility] Neutrophils Relative 67.5 % LAB HEMETOLOGY METHOD 09/05/2024 11:10 AM [facility] Lymphocytes Relative 17.1 % LAB HEMETOLOGY METHOD 09/05/2024 11:10 AM [facility] Monocytes Relative 12.2 % LAB HEMETOLOGY METHOD 09/05/2024 11:10 AM [facility] Eosinophils Relative 2.7 % LAB HEMETOLOGY METHOD 09/05/2024 11:10 AM [facility] Basophils Relative 0.4 % LAB HEMETOLOGY METHOD 09/05/2024 11:10 AM [facility] Immature Granulocytes Relative 0.1 % LAB HEMETOLOGY METHOD 09/05/2024 11:10 AM [facility] Neutrophils Absolute 4.97 1.50 - 7.00 K/mcL LAB HEMETOLOGY METHOD 09/05/2024 11:10 AM [facility] Lymphocytes Absolute 1.26 1.00 - 5.00 K/mcL LAB HEMETOLOGY METHOD 09/05/2024 11:10 AM [facility] Monocytes Absolute 0.90 0.20 - 1.00 K/mcL LAB HEMETOLOGY METHOD 09/05/2024 11:10 AM [facility] Eosinophils Absolute 0.20 0.00 - 0.50 K/mcL LAB HEMETOLOGY METHOD 09/05/2024 11:10 AM [facility] Basophils Absolute 0.03 0.00 - 0.20 K/mcL LAB HEMETOLOGY METHOD 09/05/2024 11:10 AM [facility] Immature Granulocytes Absolute 0.01 0.00 - 0.03 K/mcL LAB HEMETOLOGY METHOD 09/05/2024 11:10 AM [facility] Blood Venous blood specimen / Unknown Venipuncture / Unknown 09/05/2024 6:54 AM EST 09/05/2024 9:50 AM EST us Baldemar Blackman MD LAB BLOOD ORDERABLES Final Res ult [facility] LAB [address] [place] [address], [place] [phone] * (ABNORMAL) Magnesium (09/05/2024 6:54 AM EST) Magnesium 1.8(L) 1.9 - 2.6 mg/dL LAB CHEMISTRY METHOD 09/05/2024 11:31 AM EST [facility] LAB Blood Venous blood specimen / Unknown Venipuncture / Unknown 09/05/2024 6:54 AM EST 09/05/2024 9:50 AM EST Baldemar Blackman MD LAB BLOOD ORDERABLES Final Res ult Performing Organization Address [facility]/State/ZIP Co de Phone Number [facility] [address] [place] [address], [place] [phone] * (ABNORMAL) Comprehensive metabolic panel (09/05/2024 6:54 AM EST) Pathologist [facility] Sodium 139 133 - 145 mmol/L LAB CHEMISTRY METHOD 09/05/2024 11:31 AM [facility] Potassium 4.4 3.5 - 5.5 mmol/L LAB CHEMISTRY METHOD 09/05/2024 11:31 AM [facility] Chloride 107 96 - 110 mmol/L LAB CHEMISTRY METHOD 09/05/2024 11:31 AM [facility] CO2 25 21 - 32 mmol/L LAB CHEMISTRY METHOD 09/05/2024 11:31 AM [facility] Anion Gap 7 3 - 11 LAB CHEMISTRY METHOD 09/05/2024 11:31 AM [facility] Glucose 85 70 - 100 mg/dL LAB CHEMISTRY METHOD 09/05/2024 11:31 AM [facility] BUN 23 5 - 25 mg/dL LAB CHEMISTRY METHOD 09/05/2024 11:31 AM [facility] Creatinine 0.92 0.50 - 1.10 mg/dL LAB CHEMISTRY METHOD 09/05/2024 11:31 AM [facility] eGFR 65 >=60 mL/min/1. 73m2 LAB CHEMISTRY METHOD 09/05/2024 11:31 AM [facility] Comment:Calculation based on the Chronic Kidney Disease Epidemiology Collaboration (CKD-EPI) equation refit without adjustment for race. BUN/Creatinine Ratio 25.0 LAB CHEMISTRY METHOD 09/05/2024 11:31 AM [facility] Calcium 9.3 8.5 - 10.5 mg/dL LAB CHEMISTRY METHOD 09/05/2024 11:31 AM [facility] AST (SGOT) 87(H) 10 - 42 unit/L LAB CHEMISTRY METHOD 09/05/2024 11:31 AM [facility] ALT (SGPT) 98(H) 10 - 60 unit/L LAB CHEMISTRY METHOD 09/05/2024 11:31 AM [facility] Alkaline Phosphatase 305(H) 42 - 121 unit/L LAB CHEMISTRY METHOD 09/05/2024 11:31 AM [facility] Total Protein 4.9(L) 6.0 - 8.0 g/dL LAB CHEMISTRY METHOD 09/05/2024 11:31 AM [facility] Albumin 2.6(L) 3.2 - 5.0 g/dL LAB CHEMISTRY METHOD 09/05/2024 11:31 AM [facility] Total Bilirubin 0.6 0.0 - 1.4 mg/dL LAB CHEMISTRY METHOD 09/05/2024 11:31 AM [facility] Blood Venous blood specimen / Unknown Venipuncture / Unknown 09/05/2024 6:54 AM EST 09/05/2024 9:50 AM EST us Baldemar Blackman MD LAB BLOOD ORDERABLES Final Res ult [facility] [address] [place] [address], documented in this encounter Visit Diagnoses Diagnosis Encounter for other general examination documented in this encounter Care Teams Inspector Hairspring Truing Relationship Specialty Start Date End Date Baldemar Blackman MD [address] [place] [address] PCP - General Internal Medicine 09/14/24 documented as of this encounter
--- OUTSIDE RECORDS SUMMARY | 2025-04-12 14:43 | XMS_ITS | Data Portability ---
Author Organization [place] [facility] [place], [facility] - INPATIENT Address [address] [place] [address] Assessment Encounter Date Assessment Date Assessment LastModified [...] SNOMED-CT Code Diagnosis ICD10 Code Diagnosis Note [id number] SHARI MCBRIDE MD [facility] Office [address] [address] 10/05/2019 13:12:35 10/06/2019 16:21:54 Osteoarthritis of knee [id number] M17.11 Health Concerns Section Related Observation LastModified by Organization Detai ls LastModified Time None Recorded Concern Status LastModified by Organization Details LastModified Time None Recorded Advance Directives Directive None Recorded Payers Insurance Date Sequence Insurance Name Policy Number Policy Miles Covered Member ID Miles Member ID Guarantor Name 01/08/2023 1 [place]: [employer] Reema Dalton [id number] Reema Dalton 01/08/2023 2 [facility] [id number] Reema Dalton [id number] Reema Dalton Notes Date Note Type [...] She also had an injection from her service support representative about 5 years ago, again with limited [...] 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 She does feel like the pain has [...] patient is retired. 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 She does not smoke nor drink alcohol [...] Review of Systems negative. SHARI MCBRIDE MD [address] [place] [address], [phone], [facility] [place] 10/09/2019 10:59:55 OBGyn Episode No OBEpisode recorded.
--- OUTSIDE RECORDS SUMMARY | 2025-04-12 14:43 | XMS_ITS | Clinical Summary ---
Author Organization [facility] Address [address] [place] [address] Care Team Providers Care Marketing Communication Manager Name Role Phone Dina Wall Primary Care Provider [phone] Medications No known medications Social History Tobacco [...] - - Pulse - - Temperature 36.2 C (97.1 F) 01/13/2013 10:20 AM EDT Respiratory Rate - - Oxygen Saturation - [...] - 2023-2 5 season) 2024 Influenza (#1) 2025 HPV Vaccine Aged Out No longer eligi [...] Pap Smear Discontinued Zoster (Zostavax) Discontinued Insurance [employer] Member Subscriber Plan / Payer (Ef fective 2011-Present) Name:Reema Dalton Relation to Subscriber:Self Name:Reema Dalton Payer ID:[id number] (NAIC) Type:Other Contracted Address: [address] [place] [id number] Care Teams Marketing Communication Manager Relationship Specialty Start Date End Date Dina Wall [facility] [address] [place] [phone] PCP - General Internal Medicine 12/18/12
[2025-05-12 13:26] VITALS: BMI 33.1
--- NOTE | 2025-05-13 10:10 | HO.ANESPROP2 ---
Documented by User: Pooja Martin NP 05/13/25 10:12 HPI - Anesthesia Eval Consult details Narrative: 74yo F for Upper Endoscopy s/p same 09/2024 with TIVA PMFSH Active Problems Active Problems: All Active Problems History of total right knee replacement (Acute) Right knee pain (Acute) Pulmonary nodule (Acute) Katey albicans infection (Acute) Gastric dysplasia (Acute) Osteoarthritis of knees, bilateral (Acute) Morbid obesity (Acute) Swelling of right knee (Acute) Environmental allergies (Acute) Hyperparathyroidism (Acute) Fatigue (Acute) Lupus (Acute) BPPV (benign paroxysmal positional vertigo) (Acute) Bilateral knee pain (Acute) Tubular adenoma of colon (Acute) Near syncope (Acute) Tachycardia (Acute) Multiple pulmonary nodules (Acute) Dyspnea on exertion (Acute) Bronchiectasis (Acute) Delayed gastric emptying (Acute) Interstitial lung disease (Acute) Chronic cough (Acute) Restless leg syndrome (Acute) Chronic idiopathic constipation (Acute) Sleep apnea (Acute) Fibromyalgia (Acute) Ascending aorta dilatation (Acute) Dyslipidemia (Acute) Hypothyroidism (Acute) Murmur (Acute) Raynauds disease (Acute) Memory loss (Acute) Lakhani esophagus (Acute) Past Medical History Medical History Iliotibial band syndrome of right side Pulmonary nodule Gastric dysplasia Osteoarthritis of left knee Osteoarthritis Elevated alkaline phosphatase level Osteoarthritis of right knee Right rotator cuff tear History of kidney disease Multiple adenomatous polyps Upper respiratory infection Spleen anomaly Dizziness SOB (shortness of breath) Vestibular disequilibrium Pre-op examination Preoperative cardiovascular examination Bilateral knee pain Postmenopausal Breast cancer Fracture of femoral neck, left Preoperative clearance Early satiety Nausea Right shoulder pain Nausea and vomiting History of breast cancer Skin lesions Screening for lipid disorders Irritable bowel syndrome with constipation Screening for colon cancer Physical exam History of sepsis CKD (chronic kidney disease) CLYDE (obstructive sleep apnea) Clostridium difficile infection Lupus Glaucoma Sleep apnea Hypothyroidism Closed fracture of neck of left femur Fibromyalgia Family History Family History Father Heart attack Clogged artery (heart) COPD (chronic obstructive pulmonary disease) Mother Stroke Clogged artery (heart) Sister COPD (chronic obstructive pulmonary disease) Brother COPD (chronic obstructive pulmonary disease) Family history of problems with anesthesia: No Surgical History Surgical History History of total right knee replacement (TKR) History of total right knee replacement H/O shoulder surgery Hx of tonsillectomy History of hip surgery History of esophagogastroduodenoscopy (EGD) H/O colonoscopy History of cholecystectomy History of Problems with Anesthesia: No Social History Social History Household Members: None Housing: Apartment Housing Other:: detention Are you a primary intensive care unit nurse to a significant other at home: No Do you presently have visiting nurse or other home services: No Patient Tobacco Use Status: Never used Tobacco e-Cigarette/Vaping Use: Never Used Second Hand Smoke Exposure: No Use of substances other than those prescribed or required for medical reasons: No Have you been hit, kicked, punched, or otherwise hurt by someone within the past year? If so, by whom?: No Are you DNR?: No Advance Directives: No Advance Directives Information Provided: Yes Advance Directives on File: No Patient : No : No Poor oral hygiene: No service: No Current occupational status: retired Gender identity: Female Cognitive needs: No Hearing needs: No Vision needs: No Meds Allergies Allergy/AdvReac Type Severity Reaction Status Date / Time adhesive Allergy Severe Hives Verified 04/26/25 15:28 ondansetron (From ZOFRAN ( Allergy Unknown ANAPHYLAXIS Verified 04/26/25 15:28 HYDROCHLORIDE)) Home Medications ?Medication ?Instructions ?Recorded ?Confirmed ?Last Taken ?Type aspirin 81 mg tablet 81 mg PO DAILY 02/14/23 12/03/24 Unknown History cranberry concentrate-ascorbic 20 cap PO DAILY 05/29/23 12/03/24 Unknown History acid 4,200 mg-20 mg capsule vibegron 75 mg tablet (Gemtesa) 75 mg PO DAILY 03/05/24 12/03/24 Unknown History docusate sodium 100 mg capsule 100 mg PO DAILY 04/28/24 12/03/24 Unknown History (Colace) turmeric root extract 500 mg 500 mg PO DAILY 04/28/24 12/03/24 Unknown History capsule magnesium 50 mg PO DAILY 08/06/24 12/03/24 Unknown History albuterol sulfate 90 mcg/actuation 90 mcg inhalation DAILY 08/18/24 12/03/24 Unknown History aerosol inhaler Exam Height,Weight and Vital Signs: Height 5 ft 6 in Weight 93.17 kg Pertinent Lab Results Pertinent Lab Results: Laboratory Tests 12/10/24 11:25 WBC 5.8 Hgb 16.0 D Hct 49.2 H D Plt Count 182 Sodium 138 Potassium 4.2 Chloride 109 H Carbon Dioxide 18 L BUN 20 H Creatinine 1.07 Narrative Narrative: ECHO 06/2024 Conclusions: - 1. Normal LV ejection fraction of 65-70% with impaired relaxation filling pattern 2. Trivial aortic regurgitation 3. Mildly dilated ascending aorta at 3.9 cm 4. Normal RV systolic pressure 5. No gross pericardial effusion NM cardiolite stress test 2023 Impression: 1. Myocardial perfusion imaging study shows likely normal myocardial perfusion. 2. Gated LVEF is 64% during rest. Visually normal during stress. 3. Transient ischemic dilatation not present. EKG component of the test reported separately. Holter 2023 1. Patient was monitored for 1 day and 23 hours 2. Baseline was normal sinus rhythm with average heart of 76 beats per minute 3. No significant pauses noted 4. Occasional PACs noted 5. No patient reported events Assessment and Plan Assessment Anesthesia Assessment: Chart Reviewed Final Anesthetic Review Family History of Problems with Anesthesia: No History of Problems with Anesthesia: No Documented by User: Kamila Abarca MD 05/14/25 10:25 [facility] Past Medical History Medical History Iliotibial band syndrome of right side Pulmonary nodule Gastric dysplasia Osteoarthritis of left knee Osteoarthritis Elevated alkaline phosphatase level Osteoarthritis of right knee Right rotator cuff tear History of kidney disease Multiple adenomatous polyps Upper respiratory infection Spleen anomaly Dizziness SOB (shortness of breath) Vestibular disequilibrium Pre-op examination Preoperative cardiovascular examination Bilateral knee pain Postmenopausal Breast cancer Fracture of femoral neck, left Preoperative clearance Early satiety Nausea Right shoulder pain Nausea and vomiting History of breast cancer Skin lesions Screening for lipid disorders Irritable bowel syndrome with constipation Screening for colon cancer Physical exam History of sepsis CKD (chronic kidney disease) CLYDE (obstructive sleep apnea) Clostridium difficile infection Lupus Glaucoma Sleep apnea Hypothyroidism Closed fracture of neck of left femur Fibromyalgia Family History Family History Father Heart attack Clogged artery (heart) COPD (chronic obstructive pulmonary disease) Mother Stroke Clogged artery (heart) Sister COPD (chronic obstructive pulmonary disease) Brother COPD (chronic obstructive pulmonary disease) Surgical History Surgical History History of total right knee replacement (TKR) History of total right knee replacement H/O shoulder surgery Hx of tonsillectomy History of hip surgery History of esophagogastroduodenoscopy (EGD) H/O colonoscopy History of cholecystectomy Social History Social History Household Members: None Housing: Apartment Housing Other:: detention Are you a primary intensive care unit nurse to a significant other at home: No Do you presently have visiting nurse or other home services: No Patient Tobacco Use Status: Never used Tobacco e-Cigarette/Vaping Use: Never Used Second Hand Smoke Exposure: No Use of substances other than those prescribed or required for medical reasons: No Have you been hit, kicked, punched, or otherwise hurt by someone within the past year? If so, by whom?: No Are you DNR?: No Advance Directives: No Advance Directives Information Provided: Yes Advance Directives on File: No Patient : No : No Poor oral hygiene: No service: No Current occupational status: retired Gender identity: Female Cognitive needs: No Hearing needs: No Vision needs: No Meds Allergies Allergy/AdvReac Type Severity Reaction Status Date / Time adhesive Allergy Severe Hives Verified 04/26/25 15:28 ondansetron (From ZOFRAN ( Allergy Unknown ANAPHYLAXIS Verified 04/26/25 15:28 HYDROCHLORIDE)) Home Medications ?Medication ?Instructions ?Recorded ?Confirmed ?Last Taken ?Type aspirin 81 mg tablet 81 mg PO DAILY 02/14/23 12/03/24 Unknown History cranberry concentrate-ascorbic 20 cap PO DAILY 05/29/23 12/03/24 Unknown History acid 4,200 mg-20 mg capsule vibegron 75 mg tablet (Gemtesa) 75 mg PO DAILY 03/05/24 12/03/24 Unknown History docusate sodium 100 mg capsule 100 mg PO DAILY 04/28/24 12/03/24 Unknown History (Colace) turmeric root extract 500 mg 500 mg PO DAILY 04/28/24 12/03/24 Unknown History capsule magnesium 50 mg PO DAILY 08/06/24 12/03/24 Unknown History albuterol sulfate 90 mcg/actuation 90 mcg inhalation DAILY 08/18/24 12/03/24 Unknown History aerosol inhaler Exam Airway Mallampati Class: III TM Dist: >3cm Neck ROM: Full Loose/Missing/Broken Teeth: No Heart: RRR Lungs: CTA Assessment and Plan Assessment Anesthesia Assessment: Anesthesia Plan Discussed Final Anesthetic Review NPO: Yes ASA Class: III Final Preanesthetic Review: Meds/Allgs Chart Reviewed, Consent Obtained/Reviewed and Anes Risks/Benef Reviewed Patient Risk: Intermediate Procedure Risk: Intermediate Anesthetic Plan Anesthetic Plan: MAC: Disposition: Standard PACU
--- NOTE | 2025-05-14 08:56 | MHC.SHP ---
Pre-Procedural Eval Section A - 24 Hr Update-Section A only Date of Service: 05/14/25 The patient is an INPATIENT: No The patient has been examined within 24 hours of the surgical procedure. The History & Physical has been completed within 30 days and I have reviewed it.: No Section B - Complete if H&P > 30 days Chief Complaint: Gastric intestinal metaplasia with low grade Relevant Family History (Specify if Yes): No Relevant Social History: None Present Medications: see Short Stay Collaborative assessment Medical History: Significant History (Significant History (Bilateral knee pain Postmenopausal Breast cancer Fracture of femoral neck, left Pulmonary nodule Preoperative clearance Early satiety Nausea Right shoulder pain Nausea and vomiting) History of Previous Operations: Relevant previous surgery/procedure and date(s) (History of total right knee replacement (TKR) History of total right knee replacement H/O shoulder surgery Hx of tonsillectomy History of hip surgery History of esophagogastroduodenoscopy (EGD) H/O colonoscopy History of cholecystectomy) Allergies: Allergies Allergy/AdvReac Type Severity Reaction Status Date / Time adhesive Allergy Severe Hives Verified 04/26/25 15:28 ondansetron (From ZOFRAN ( Allergy Unknown ANAPHYLAXIS Verified 04/26/25 15:28 HYDROCHLORIDE)) Review of Systems Sugical H&P ROS: Negative: Constitution, Cardiovascular, Respiratory and Gastrointestinal Exam Surgical H&P Exam: Normal: Heart, Normal: Lungs, Normal: Extremities and Normal: Abdomen Plan Diagnosis/Plan: Unchanged I have reviewed the history and physical and performed a pertinent physical examination on my patient. No changes have occurred unless specified. Time Spent With Patient Time: Total time managing care of this patient today ____ minutes.
[2025-05-14 09:34] VITALS: BP 155/51; PULSE 67; RESP 16; TEMP 36.6; O2SAT 96; BMI 33.4
[2025-05-14] MEDS: Lactated Ringers 1,000 ML 100 ML IVCONT (09:55)
--- NOTE | 2025-05-14 11:19 | W.PM.OPN ---
Operative Note Operative Note Date of Service: 05/14/25 Narrative: FLEXIBLE TRANSORAL UPPER GASTROINTESTINAL ENDOSCOPY WITH SNARE POLYPECTOMY, SUBMUCOSAL INJECTION AND HEMOCLIP PLACEMENT Pre-op diagnosis: FU of gastric polyps with low-grade dysplasia Post-op diagnosis: Hiatal hernia, multiple gastric polyps Endoscopist:Phuc Grigsby MD Anesthesia:?MAC UPPER ENDOSCOPY Consent: Indications for the procedure and potential complications of bleeding, perforation, reaction to medications and missed diagnosis were discussed with the patient and informed consent was obtained. Instrument: Olympus GIF H 190 mid size upper endoscope Monitoring: Vital signs and clinical assessment, continuous EKG monitoring, Pulse oximetry, Carbon Dioxide monitoring and blood pressure monitoring were done throughout the procedure. Procedure: The patient was placed in the left lateral decubitis position and pre-procedure medications were administered and a bite block was placed. The endoscope was inserted into the mouth and advanced under direct vision to the third part of duodenum. A careful inspection was made as the upper endoscope was withdrawn including a retroflexed examination of the proximal stomach; Findings and interventions are described below. Findings: Larynx: Normal Esophagus: GE junction at 32 cms, hiatal hernia 32 to 35 cms. A 1 cms tongue of possible Lakhani's - Biopsies obtained during previous EGD were negative for Lakhani's. No esophagitis Stomach: Multiple 5 -10 mm benign appearing polyps in the gastric body. Two 2.5 to 3 cms polyps at 45 cms along the greater curvature. Polyps were raised with 2-3 cc of Eleview and removed a stiff hot snare. Polyps were retrieved with a Crouch net Polypectomy site was closed with one hemoclip and marked by Endomark. Moderate diffuse gastric erythema - biopsies obtained during past EGD were negative for H pylori. Grade 3 flap valve on retroflexed examination of the cardia. Duodenum: Normal bulb and descending duodenum Intervention: Snare polypectomy, submucosal injection and hemoclip placement as noted above Impression and Post Procedure Diagnosis: Endoscopy Findings: ESOPHAGUS: Medium sized hiatal hernia STOMACH: Two 2.5 to 3 cms polyps at 45 cms along the greater curvature. Polyps were raised with 2-3 cc of Eleview and removed a stiff hot snare. Polyps were retrieved with a Crouch net Polypectomy site was closed with one hemoclip and marked by Endomark. DUODENUM: Normal Plan: Pt has a FU appointment on 05/25/25 with Maxine Diaz NP If persistent LGD on biopsies, repeat EGD in 3 months versus surgery Above findings were reviewed with the patient and relevant handouts were given and the discharge area.
[2025-05-14 11:20] VITALS: BP 91/47; PULSE 66; RESP 18; TEMP 36.1; O2SAT 99
[2025-05-14 11:25] VITALS: BP 102/49; PULSE 59; RESP 18; O2SAT 99
[2025-05-14 11:35] VITALS: BP 156/60; PULSE 57; RESP 21; O2SAT 99
[2025-05-14 11:49] VITALS: BP 158/60; PULSE 60; RESP 20; TEMP 36.1; O2SAT 99
== END 2025-05-14 12:28 | disposition home or self-care (01) ==
PROVIDERS: PCP Nurse Practitioner Family; Visit Provider Internal Medicine Gastroenterology
PROC: 0DJ08ZZ Inspection of Upper Intestinal Tract, Via Natural or Artificial Opening Endoscopic (ICD-10-PCS; CPT 43235; principal; 2025-05-14 10:30)
DX: K31.A21 Gastric intestinal metaplasia with low grade dysplasia (principal); K31.7 Polyp of stomach and duodenum; K44.9 Diaphragmatic hernia without obstruction or gangrene; E78.5 Hyperlipidemia, unspecified; E03.9 Hypothyroidism, unspecified; M32.9 Systemic lupus erythematosus, unspecified; M79.7 Fibromyalgia; G47.30 Sleep apnea, unspecified; K30 Functional dyspepsia; R68.81 Early satiety; Z85.3 Personal history of malignant neoplasm of breast
CPT/HCPCS: 43251; 43239; 43236; 88305; 88313; 88342; J2003; J2704; Q9968

== ENCOUNTER → 2025-05-14 09:08 | Outpatient (BNV) | payer MEDICARE, SELFPAY | PROVIDERS: PCP Nurse Practitioner Family; Visit Provider Internal Medicine Gastroenterology | DX: K31.A21 Gastric intestinal metaplasia with low grade dysplasia (principal); K31.7 Polyp of stomach and duodenum | CPT/HCPCS: 43236; 43251 ==

== ENCOUNTER 2025-05-25 12:06 | Outpatient (AMB) | payer MEDICARE, SELFPAY ==
--- NOTE | 2025-05-25 12:11 | A.OFFVIS_ITS ---
Vital Signs 05/25/25 12:13 Height 5 ft 6 in Weight 202 lb BMI 32.6 BP 140/60 H Blood Pressure Location Lt brachial Position Sitting Pulse 94 Pulse Source Pulse Oximeter Pulse Oximetry (%) 96 Oxygen Delivery Method Room Air Intake Visit Reasons: s/p EGD Intake Note: Est pt for mgmt of GERD. S/P EGD. CC; GERD mgmt. Intermittent sx. Pt has concerns regarding new ortho med (m eloxicam). Division Superintendent Required: No Accompanied by: Self / Same As Patient Allergies adhesive Allergy (Severe, Verified 05/25/25 12:12) Hives ondansetron (From ZOFRAN ( HYDROCHLORIDE)) Allergy (Unknown, Verified 05/25/25 12:12) ANAPHYLAXIS HPI HPI s/p EGD: Details: Assessment & Plan (1) Delayed gastric emptying: Code(s): K30 - Functional dyspepsia Category: Medical (2) Chronic idiopathic constipation: Code(s): K59.04 - Chronic idiopathic constipation Category: Medical (3) Lakhani esophagus: Code(s): K22.70 - Lakhani's esophagus without dysplasia Category: Medical (4) Osteoarthritis of knees, bilateral: Code(s): M17.0 - Bilateral primary osteoarthritis of knee Category: Medical (5) Gastric dysplasia: Comment: From biopsy polyp on 03/2024 EGD Code(s): Q40.3 - Congenital malformation of stomach, unspecified Category: Medical (6) Latosha albicans infection: Comment: under breast Code(s): B37.9 - Candidiasis, unspecified Category: Medical Plan I can't find a reason for her fatigue and malaise via blood work except for her PTH variations and this is being followed by endocrinology. She admits to disturbed sleep r/t pain in her knee, she does not know if she snores so a sleep study may be prudent via her PCP. She controls her CIC with magnesium as laxatives seem to push her in to diarrheal phase. She continues on her esomeprazole qd. There was low grade dysplasia on a polyp in the gastrum and the endoscopist, Dr. Grigsby, wanted a 3-4 mos follow up EGD. She has not set this date yet, so I put the order in to the schedulers. I will also add famotidine at bedtime to help protect her stomach further since her insurance will not cover twice a day Nexium. She is trying to lose weight, but she needs structure and weight management only really covers either medications which her insurance does not cover, or gastric bypass surgery which she is inclined to have. Her son bakes and is a litigation services manager! He bakes wonderful bread! She has a rash under her breasts that she thought was from her past radiation therapy but may be latosha. I prescribed nystatin cream. Return office visit in 3 months Orders: Orders EGD - GI Use Only 01/14/25 Q40.3 - Congenital malformation of stomach, unspecified Medications: New famotidine (Pepcid) 40 mg PO BEDTIME 30 tabs 12RF nystatin 1 appl topical TID 30 grams 3RF B37.9 - Candidiasis, unspecified Changed From esomeprazole magnesium (Nexium) 40 mg PO ONCE Q40.3 - Congenital malformation of stomach, unspecified To esomeprazole magnesium (Nexium) 40 mg PO .qam ac 30 caps 12RF Q40.3 - Congenital malformation of stomach, unspecified EGD 05/14/25 Findings: Larynx: Normal Esophagus: GE junction at 32 cms, hiatal hernia 32 to 35 cms. A 1 cms tongue of possible Lakhani's - Biopsies obtained during previous EGD were negative for Lakhani's. No esophagitis Stomach: Multiple 5 -10 mm benign appearing polyps in the gastric body. Two 2.5 to 3 cms polyps at 45 cms along the greater curvature. Polyps were raised with 2-3 cc of Eleview and removed a stiff hot snare. Polyps were retrieved with a Crouch net Polypectomy site was closed with one hemoclip and marked by Endomark. Moderate diffuse gastric erythema - biopsies obtained during past EGD were negative for H pylori. Grade 3 flap valve on retroflexed examination of the cardia. Duodenum: Normal bulb and descending duodenum Intervention: Snare polypectomy, submucosal injection and hemoclip placement as noted above Impression and Post Procedure Diagnosis: Endoscopy Findings: ESOPHAGUS: Medium sized hiatal hernia STOMACH: Two 2.5 to 3 cms polyps at 45 cms along the greater curvature. Polyps were raised with 2-3 cc of Eleview and removed a stiff hot snare. Polyps were retrieved with a Crouch net Polypectomy site was closed with one hemoclip and marked by Endomark. DUODENUM: Normal Plan: Pt has a FU appointment on 05/25/25 with Maxine Diaz NP If persistent LGD on biopsies, repeat EGD in 3 months versus surgery BOPSY Addendum Addendum #1 Immunostain for H. pylori is negative. Additional level with AB/PAS is negative for intestinal metaplasia. Controls stain appropriately. Electronically Signed By: Chanell Greer 05/19/25 1700 Diagnosis Gastric polyps, at 45 cm: Fundic gland polyps (2 pieces) with minimal chronic active inflammation, and low-grade dysplasia; No intestinal metaplasia seen on initial levels; negative for high-grade dysplasia and carcinoma TODAYS VISIT [facility] Medical History Iliotibial band syndrome of right side Pulmonary nodule Gastric dysplasia Osteoarthritis of left knee Osteoarthritis Elevated alkaline phosphatase level Osteoarthritis of right knee Right rotator cuff tear History of kidney disease Multiple adenomatous polyps Upper respiratory infection Spleen anomaly Dizziness SOB (shortness of breath) Vestibular disequilibrium Pre-op examination Preoperative cardiovascular examination Bilateral knee pain Postmenopausal Breast cancer Fracture of femoral neck, left Preoperative clearance Early satiety Nausea Right shoulder pain Nausea and vomiting History of breast cancer Skin lesions Screening for lipid disorders Irritable bowel syndrome with constipation Screening for colon cancer Physical exam History of sepsis CKD (chronic kidney disease) CLYDE (obstructive sleep apnea) Clostridium difficile infection Lupus Glaucoma Sleep apnea Hypothyroidism Closed fracture of neck of left femur Fibromyalgia Surgical History History of total right knee replacement (TKR) History of total right knee replacement H/O shoulder surgery Hx of tonsillectomy History of hip surgery History of esophagogastroduodenoscopy (EGD) H/O colonoscopy History of cholecystectomy Family History Father Heart attack Clogged artery (heart) COPD (chronic obstructive pulmonary disease) Mother Stroke Clogged artery (heart) Sister COPD (chronic obstructive pulmonary disease) Brother COPD (chronic obstructive pulmonary disease) Social History Household Members: None Housing: Apartment Housing Other:: nursing home Are you a primary hearing care practitioner to a significant other at home: No Do you presently have visiting nurse or other home services: No Patient Tobacco Use Status: Never used Tobacco e-Cigarette/Vaping Use: Never Used Second Hand Smoke Exposure: No service: No Current occupational status: retired Gender identity: Female Cognitive needs: No Hearing needs: No Vision needs: No Review of Systems Const Reports fatigue, Denies fever(s), Reports malaise, Denies night sweats, Reports poor appetite and Denies weight loss Eyes Details: glasses Reports requires corrective lenses ENT Reports Normal hearing present, Denies dental pain, Denies dysphagia, Denies hearing loss, Denies mouth pain, Denies odynophagia, Denies throat swelling, Denies tongue swelling and Reports other (Dentition adequate) Card Reports dyspnea on exertion Resp Reports dyspnea on exertion GI Details: Denies abdominal pain, Denies melena, Denies bloating, Denies hematochezia, Reports constipation, Denies GI cramping, Denies dysphagia, Denies excessive flatus, Denies early satiety, Denies heartburn, Denies diarrhea, Reports loose stools, Reports nausea, Denies odynophagia, Denies vomiting and Denies hematemesis Skin/Breast Denies pruritus, Denies lesions, Denies rash and Denies jaundice Neuro Reports Normal hearing present and Denies Abnormal speech present Psych Reports anxiety Endo Reports fatigue Aller/Immun Denies throat swelling and Denies tongue swelling Physical Exam Vital Signs: Last Vital Signs Pulse 94 05/25/25 12:13 BP 140/60 H 05/25/25 12:13 Pulse Ox 96 05/25/25 12:13 Oxygen Delivery Method Room Air 05/25/25 12:13 BMI result Body Mass Index 32.6 Const General: cooperative, no acute distress, well developed and well groomed Nutritional Appearance: well nourished and obese Orientation/consciousness: oriented to person, oriented to place and oriented to time Limitations: No language barrier HEENT Head: Yes normocephalic and Yes atraumatic Eyes General: appearance normal, both eyes and all related structures Pupils: Equal, round and reactive pupils present Neck Neck: Yes normal visual inspection and Yes no lymphadenopathy Thyroid: Thyroid normal Resp Effort & Inspection: normal respiratory effort and able to speak in complete sentences Auscultation: clear to auscultation bilaterally Cardio Rate: regular rate Rhythm: regular rhythm Heart sounds: Normal, physiologic split S2 sound present Peripheral pulses: radial pulses present and posterior tibial pulses present GI Inspection: No distended, No Abdominal panniculus present and Yes obesity Palpation (GI): Soft to palpation, nontender, no guarding, not rigid and No hepatosplenomegaly present Percussion: Yes normal to percussion Auscultation: normal bowel sounds Rectal Exam - Female: deferred Skin General skin exam: no rashes or lesions noted, turgor normal, skin not dry, no jaundice, No spider nevi and no striae Rashes: no rashes Nails: normal Neuro General: oriented to person, oriented to place and oriented to time Cranial nerves: Yes Equal, round and reactive pupils present and Yes Normal hearing present Speech: No Abnormal speech present Extrem General: Yes normal to inspection, No clubbing, No cyanosis and No edema Psych Appearance: grossly normal and well kempt Mental Status: mental status grossly normal Speech and movement: Normal speech and movement present Affect: normal affect Attitude: cooperative Thought process: Normal thought process present and not confabulating Thought content: Normal thought content present Insight: Fair insight present (Psych) Judgement: Fair judgement present (Psych) Results Reviewed Results Reviewed: EGD 05/14/25 Findings: Larynx: Normal Esophagus: GE junction at 32 cms, hiatal hernia 32 to 35 cms. A 1 cms tongue of possible Lakhani's - Biopsies obtained during previous EGD were negative for Lakhani's. No esophagitis Stomach: Multiple 5 -10 mm benign appearing polyps in the gastric body. Two 2.5 to 3 cms polyps at 45 cms along the greater curvature. Polyps were raised with 2-3 cc of Eleview and removed a stiff hot snare. Polyps were retrieved with a Crouch net Polypectomy site was closed with one hemoclip and marked by Endomark. Moderate diffuse gastric erythema - biopsies obtained during past EGD were negative for H pylori. Grade 3 flap valve on retroflexed examination of the cardia. Duodenum: Normal bulb and descending duodenum Intervention: Snare polypectomy, submucosal injection and hemoclip placement as noted above Impression and Post Procedure Diagnosis: Endoscopy Findings: ESOPHAGUS: Medium sized hiatal hernia STOMACH: Two 2.5 to 3 cms polyps at 45 cms along the greater curvature. Polyps were raised with 2-3 cc of Eleview and removed a stiff hot snare. Polyps were retrieved with a Crouch net Polypectomy site was closed with one hemoclip and marked by Endomark. DUODENUM: Normal Plan: Pt has a FU appointment on 05/25/25 with Maxine Diaz NP If persistent LGD on biopsies, repeat EGD in 3 months versus surgery BOPSY Addendum Addendum #1 Immunostain for H. pylori is negative. Additional level with AB/PAS is negative for intestinal metaplasia. Controls stain appropriately. Electronically Signed By: Chanell Greer 05/19/25 5560 Diagnosis Gastric polyps, at 45 cm: Fundic gland polyps (2 pieces) with minimal chronic active inflammation, and low-grade dysplasia; No intestinal metaplasia seen on initial levels; negative for high-grade dysplasia and carcinoma Assessment & Plan Assessment & Plan (1) Gastric dysplasia: Comment: From biopsy polyp on 03/2024 EGD Code(s): Q40.3 - Congenital malformation of stomach, unspecified Category: Medical (2) BPPV (benign paroxysmal positional vertigo): Code(s): H81.10 - Benign paroxysmal vertigo, unspecified ear Category: Medical (3) Chronic daily headache: Code(s): R51.9 - Headache, unspecified Category: Medical Plan - The patient is a 74-year-old female presenting with persistent gastrointestinal issues. - Known low-grade dysplasia of the stomach has been monitored via endoscopy, with plans for follow-up in three months. Because Dr. Grigsby has told her she would need part of her stomach removed, I suggest that she follow-up with Dr. Grigsby after the next procedure to get a better explanation of this although she can continue to follow with me for her chronic GI conditions. - The patient's nausea has progressively worsened over the past three years, with coinciding gastrointestinal changes such as floating stools, potentially due to poor fat absorption or increased dietary fiber, although no explicit dietary change mentioned. She did show mild delay in gastric emptying on a gastric emptying study however she felt that her symptoms were greatly worsened with metoclopramide. - Exhaustion and shortness of breath date back to resolved COVID-19 infection; however, symptoms persist, creating functional limitations in daily activities. - The patient experiences spatial orientation troubles, notably aggravated by water-related activities. - Investigations highlight hyperparathyroidism, she wonders if this is contributing to her symptoms and I am uncertain. - The patient adheres to a limited diet, excluding complex medications or supplements exacerbating her gastrointestinal symptoms, such as vitamins. The patient consumes a diet consisting mainly of water, water with flavored hints, and iced tea. She explicitly avoids alcohol and reports not taking tu rmeric, meloxicam, or vitamins due to adverse effects on her gastrointestinal tract. Patient does not describe any significant changes to her diet that account for symptoms. Patient is cautious about [id number] medications due to previous gastric issues. Despite adhering to a simple diet, she does not report improvement in symptoms. The so far, the GI workup has not given us a clear indication for her ongoing nausea. Although she does have the low-grade dysplasia there is no excessive ulceration or irritation in the stomach that would seem to promote the nausea. There was a delay in gastric emptying but this should have improved with Reglan and it did not. Pancreatic enzymes and imaging have been negative. Of course this could leave us with either metabolic, neurologic or even psychogenic causes for her nausea. Because she also has some spatial orientation issues I suggest we get a CAT scan of the brain and for her to Neurology to make sure there is nothing like multiple sclerosis or some other neurologic condition contributing to her presentation. She continues on esomeprazole 40 mg a day and utilize the senna when she needs to for her IBS-M. I suggest that we also had sucralfate 1 tablet a day at noon to see if this helps if not with the nausea, then perhaps with the healing of the stomach so that she will stop showing us low-grade dysplasia. She is very fearful of having any surgery on her stomach. Return office visit with me after the head CT. Orders: Orders CT head/brain wo IV con Today H81.10 - Benign paroxysmal vertigo, unspecified ear, R51.9 - Headache, unspecified Referrals Neurology Referral H81.10 - Benign paroxysmal vertigo, unspecified ear, R51.9 - Headache, unspecified Medications: New sucralfate (Carafate) 1 g PO QNOON 30 tabs 6RF Q40.3 - Congenital malformation of stomach, unspecified Discontinued metoclopramide HCl (Reglan) Discontinued Reason: Doctor's Order 10 mg PO Q6H PRN 10 tabs 0RF nausea and vomiting Coding Level of Care Code Est Pt Level 4 (68237) Diagnoses Gastric dysplasia Q40.3 BPPV (benign paroxysmal positional vertigo) H81.10 Chronic daily headache R51.9 Time Spent (min) 38
[2025-05-25 12:13] VITALS: BP 140/60; PULSE 94; O2SAT 96; BMI 32.6
--- OUTSIDE RECORDS SUMMARY | 2025-05-25 13:02 | XMS_ITS | Encounter Summary ---
Author Organization [facility] Address [address] [place] [address] Care Team Providers Care Windows Admin Name Role Phone Baldemar Blackman MD Primary Care Provider [phone] Encounter Details Date Type Department Care Team (Late st Contact Info) Description 09/14/2024 Lab Requisition [facility] - Main Lab [address] [place] [address] Baldemar Blackman MD [address] [place] [id number] Encounter for other general examination Social History [...] LAB HEMETOLOGY METHOD 09/14/2024 9:19 AM EST [facility] RBC 3.80 3.80 - 4.80 M/mcL LAB HEMETOLOGY METHOD 09/14/2024 9:19 AM EST [facility] Hemoglobin 10.2(L) 11.5 - 16.0 g/dL LAB HEMETOLOGY METHOD 09/14/2024 9:19 AM [facility] Hematocrit 33.4(L) 35.0 - 47.0 % LAB HEMETOLOGY METHOD 09/14/2024 9:19 AM [facility] MCV 88.8 79.0 - 98.0 FL LAB HEMETOLOGY METHOD 09/14/2024 9:19 AM EST [facility] MCH 27.1 27.0 [...] LAB HEMETOLOGY METHOD 09/14/2024 9:19 AM EST [facility] NRBC Absolute 0.00 <0.10 K/mcL LAB HEMETOLOGY METHOD 09/14/2024 9:19 AM [facility] Blood Venous blood specimen / Unknown Venipuncture / Unknown 09/14/2024 6:28 AM EST 09/14/2024 8:05 AM EST us Baldemar Blackman MD LAB BLOOD ORDERABLES Final Res ult [facility] [address] [place] [address], [place] [phone] * (ABNORMAL) Comprehensive metabolic panel (09/14/2024 6:28 [...] [facility] Comment:Calculation based on the Chronic Kidney Disease Epidemiology Collaboration (CKD-EPI) equation refit without adjustment for race. BUN/Creatinine Ratio 21.5 LAB [...] LAB CHEMISTRY METHOD 09/14/2024 9:52 AM EST [facility] Alkaline Phosphatase 232(H) [...] MD LAB BLOOD ORDERABLES Final Res ult [facility] [address] [place] [address], documented in this encounter Visit Diagnoses Diagnosis Encounter for other general examination documented in this encounter Care Teams Windows Admin Relationship Specialty Start Date End Date Baldemar Blackman MD [address] [place] [id number] PCP - General Internal Medicine 09/14/24 documented as of this encounter
--- OUTSIDE RECORDS SUMMARY | 2025-05-25 13:02 | XMS_ITS | Clinical Summary ---
Author Organization [address] [facility] Address [address] [place] [address] Phone Care Team Providers Care Corporate Travel Manager Name Role Phone Baldemar Blackman MD Primary Care Provider [phone] Social History Tobacco Use Types Packs/Day Years [...] series) 2023 Cholesterol Screening (Lipid Panel) 10/24/2023 Falls Risk Assessment 10/24/2023 Hepatitis C Screening 10/24/2023 Osteoporosis Screening (Bone Density Screening) 10/24/2023 Social Influencers of Health Screening 10/24/2023 COVID-19 Vaccine ( - 2023-2 5 season) 2024 Depression Screening 09/30/2024 Influenza Vaccine (#1) 2025 HIB Vaccines Aged Out No longer [...] age to complete this topic Care Teams Corporate Travel Manager Relationship Specialty Start Date End Date Baldemar Blackman MD [address] [place] [phone] PCP - General Internal Medicine 09/14/24
--- OUTSIDE RECORDS SUMMARY | 2025-05-25 13:02 | XMS_ITS | Encounter Summary ---
Author Organization [facility] Address [address] [place] [address] Care Team Providers Care Sole Skiver Name Role Phone Baldemar Blackman MD Primary Care Provider Encounter Details Date Type Department Care Team (Late st Contact Info) Description 09/05/2024 Lab Requisition [facility] - Main Lab [address] [place] [address] Baldemar Blackman MD [address] [place] [address] Encounter for other general examination Social History [...] AM EST) WBC 7.4 4.8 - 10.8 K/[facility] LAB HEMETOLOGY METHOD 09/05/2024 11:10 AM EST [facility] RBC 3.80 3.80 - 4.80 M/mcL LAB HEMETOLOGY METHOD 09/05/2024 11:10 AM [facility] LAB Hemoglobin 10.3(L) 11.5 - 16.0 g/dL LAB HEMETOLOGY METHOD 09/05/2024 11:10 AM [facility] LAB Hematocrit 32.8(L) 35.0 - 47.0 % LAB HEMETOLOGY METHOD 09/05/2024 11:10 AM [facility] LAB MCV 86.3 79.0 - 98.0 FL LAB HEMETOLOGY METHOD 09/05/2024 11:10 AM [facility] LAB MCH 27.1 27.0 - 32.0 pcg LAB HEMETOLOGY METHOD 09/05/2024 11:10 AM [facility] LAB MCHC 31.4(L) 32.0 - 37.0 g/dL LAB HEMETOLOGY METHOD 09/05/2024 11:10 AM [facility] LAB RDW 14.8 11.0 - 15.0 % LAB HEMETOLOGY METHOD 09/05/2024 11:10 AM [facility] LAB Platelets 170 130 - 400 K/mcL LAB HEMETOLOGY METHOD 09/05/2024 11:10 AM [facility] LAB MPV 11.0 7.0 - 11.0 FL LAB HEMETOLOGY METHOD 09/05/2024 11:10 AM [facility] LAB NRBC 0.0 <1.0 % LAB HEMETOLOGY METHOD 09/05/2024 11:10 AM [facility] LAB NRBC Absolute 0.00 <0.10 K/mcL LAB HEMETOLOGY METHOD 09/05/2024 11:10 AM [facility] LAB Neutrophils Relative 67.5 % LAB HEMETOLOGY METHOD 09/05/2024 11:10 AM [facility] LAB Lymphocytes Relative 17.1 % LAB HEMETOLOGY METHOD 09/05/2024 11:10 AM [facility] LAB Monocytes Relative 12.2 % LAB HEMETOLOGY METHOD 09/05/2024 11:10 AM [facility] LAB Eosinophils Relative 2.7 % LAB HEMETOLOGY METHOD 09/05/2024 11:10 AM [facility] LAB Basophils Relative 0.4 % LAB HEMETOLOGY METHOD 09/05/2024 11:10 AM [facility] LAB Immature Granulocytes Relative 0.1 % LAB HEMETOLOGY METHOD 09/05/2024 11:10 AM [facility] LAB Neutrophils Absolute 4.97 1.50 - 7.00 K/mcL LAB HEMETOLOGY METHOD 09/05/2024 11:10 AM [facility] LAB Lymphocytes Absolute 1.26 1.00 - 5.00 K/mcL LAB HEMETOLOGY METHOD 09/05/2024 11:10 AM [facility] LAB Monocytes Absolute 0.90 0.20 - 1.00 K/mcL LAB HEMETOLOGY METHOD 09/05/2024 11:10 AM [facility] LAB Eosinophils Absolute 0.20 0.00 - 0.50 K/mcL LAB HEMETOLOGY METHOD 09/05/2024 11:10 AM [facility] LAB Basophils Absolute 0.03 0.00 - 0.20 K/mcL LAB HEMETOLOGY METHOD 09/05/2024 11:10 AM [facility] LAB Immature Granulocytes Absolute 0.01 0.00 - 0.03 K/mcL LAB HEMETOLOGY METHOD 09/05/2024 11:10 AM [facility] LAB Blood Venous blood specimen / Unknown Venipuncture / Unknown 09/05/2024 6:54 AM EST 09/05/2024 9:50 AM EST us Baldemar Blackman MD LAB BLOOD ORDERABLES Final Res ult [facility] [address] [place] [address], [place] [phone] * (ABNORMAL) Magnesium (09/05/2024 6:54 AM EST) Magnesium 1.8(L) 1.9 - 2.6 mg/dL LAB CHEMISTRY METHOD 09/05/2024 11:31 AM EST [facility] LAB Blood Venous blood specimen / Unknown Venipuncture / Unknown 09/05/2024 6:54 AM EST 09/05/2024 9:50 AM EST Baldemar Blackman MD LAB BLOOD ORDERABLES Final Res ult Performing Organization Address [facility]/State/ZIP Co de Phone Number [facility] [address] [place] [address], [place] [phone] * (ABNORMAL) Comprehensive metabolic panel (09/05/2024 6:54 AM EST) Pathologist [facility] Sodium 139 133 - 145 mmol/L LAB CHEMISTRY METHOD 09/05/2024 11:31 AM [facility] LAB Potassium 4.4 3.5 - 5.5 mmol/L LAB CHEMISTRY METHOD 09/05/2024 11:31 AM [facility] LAB Chloride 107 96 - 110 mmol/L LAB CHEMISTRY METHOD 09/05/2024 11:31 AM [facility] LAB CO2 25 21 - 32 mmol/L LAB CHEMISTRY METHOD 09/05/2024 11:31 AM [facility] LAB Anion Gap 7 3 - 11 LAB CHEMISTRY METHOD 09/05/2024 11:31 AM [facility] LAB Glucose 85 70 - 100 mg/dL LAB CHEMISTRY METHOD 09/05/2024 11:31 AM [facility] LAB BUN 23 5 - 25 mg/dL LAB CHEMISTRY METHOD 09/05/2024 11:31 AM [facility] LAB Creatinine 0.92 0.50 - 1.10 mg/dL LAB CHEMISTRY METHOD 09/05/2024 11:31 AM [facility] LAB eGFR 65 >=60 mL/min/1. 73m2 LAB CHEMISTRY METHOD 09/05/2024 11:31 AM [facility] LAB Comment:Calculation based on the Chronic Kidney Disease Epidemiology Collaboration (CKD-EPI) equation refit without adjustment for race. BUN/Creatinine Ratio 25.0 LAB CHEMISTRY METHOD 09/05/2024 11:31 AM [facility] LAB Calcium 9.3 8.5 - 10.5 mg/dL LAB CHEMISTRY METHOD 09/05/2024 11:31 AM [facility] LAB AST (SGOT) 87(H) 10 - 42 unit/L LAB CHEMISTRY METHOD 09/05/2024 11:31 AM [facility] LAB ALT (SGPT) 98(H) 10 - 60 unit/L LAB CHEMISTRY METHOD 09/05/2024 11:31 AM [facility] LAB Alkaline Phosphatase 305(H) 42 - 121 unit/L LAB CHEMISTRY METHOD 09/05/2024 11:31 AM [facility] LAB Total Protein 4.9(L) 6.0 - 8.0 g/dL LAB CHEMISTRY METHOD 09/05/2024 11:31 AM [facility] LAB Albumin 2.6(L) 3.2 - 5.0 g/dL LAB CHEMISTRY METHOD 09/05/2024 11:31 AM [facility] LAB Total Bilirubin 0.6 0.0 - 1.4 mg/dL LAB CHEMISTRY METHOD 09/05/2024 11:31 AM [facility] LAB Blood Venous blood specimen / Unknown Venipuncture / Unknown 09/05/2024 6:54 AM EST 09/05/2024 9:50 AM EST us Baldemar Blackman MD LAB BLOOD ORDERABLES Final Res ult [facility] [address] [place] [address], documented in this encounter Visit Diagnoses Diagnosis Encounter for other general examination documented in this encounter Care Teams Sole Skiver Relationship Specialty Start Date End Date Baldemar Blackman MD [address] [place] [address] PCP - General Internal Medicine 09/14/24 documented as of this encounter
--- OUTSIDE RECORDS SUMMARY | 2025-05-25 13:02 | XMS_ITS | Clinical Summary ---
Author Organization [facility] Address [address] [place] [address] Care Team Providers Care Golf Cart Maker Name Role Phone Dina Wall Primary Care Provider [phone] Medications No known medications Social History Tobacco [...] (Zostavax) Discontinued Insurance [employer] FFS Care Teams Golf Cart Maker Relationship Specialty Start Date End Date Dina Wall [facility] [address] [place] [phone] PCP - General Internal Medicine 12/18/12
--- OUTSIDE RECORDS SUMMARY | 2025-05-25 13:02 | XMS_ITS | Encounter Summary ---
Author Organization [facility] Address [address] [place] [address] Care Team Providers Care Clothes Shaker Name Role Phone Baldemar Blackman MD Primary Care Provider [phone] Encounter Details Date Type Department Care Team (Late st Contact Info) Description 09/10/2024 Lab Requisition [facility] Lab [address] [place] [address] Baldemar Blackman MD [address] [place] [address] Encounter for other general examination Social History [...] LAB HEMETOLOGY METHOD 09/10/2024 9:11 AM EST [facility] LAB RBC 3.60(L) 3.80 - 4.80 M/[facility] LAB HEMETOLOGY METHOD 09/10/2024 9:11 AM EST [facility] LAB Hemoglobin 9.7(L) 11.5 - 16.0 g/dL LAB HEMETOLOGY METHOD 09/10/2024 9:11 AM [facility] LAB Hematocrit 31.3(L) 35.0 - 47.0 % LAB HEMETOLOGY METHOD 09/10/2024 9:11 AM [facility] LAB MCV 88.2 79.0 - 98.0 FL LAB HEMETOLOGY METHOD 09/10/2024 9:11 AM [facility] LAB MCH 27.3 27.0 - 32.0 pcg LAB HEMETOLOGY METHOD 09/10/2024 9:11 AM [facility] LAB MCHC 31.0(L) 32.0 - 37.0 g/dL LAB HEMETOLOGY METHOD 09/10/2024 9:11 AM [facility] LAB RDW 14.4 11.0 - 15.0 % LAB HEMETOLOGY METHOD 09/10/2024 9:11 AM [facility] LAB Platelets 273 130 - 400 K/mcL LAB HEMETOLOGY METHOD 09/10/2024 9:11 AM [facility] LAB MPV 10.3 7.0 - 11.0 FL LAB HEMETOLOGY METHOD 09/10/2024 9:11 AM [facility] LAB NRBC 0.0 <1.0 % LAB HEMETOLOGY METHOD 09/10/2024 9:11 AM EST [facility] LAB NRBC Absolute 0.00 <0.10 K/mcL LAB HEMETOLOGY METHOD 09/10/2024 9:11 AM [facility] LAB Blood Venous blood specimen / Unknown Venipuncture / Unknown 09/10/2024 5:58 AM EST 09/10/2024 8:24 AM EST us Baldemar Blackman MD LAB BLOOD ORDERABLES Final Res ult [facility] [address] [place] [address], [place] [phone] * (ABNORMAL) Basic metabolic panel (09/10/2024 5:58 AM EST) Sodium 140 133 - 145 mmol/L LAB CHEMISTRY METHOD 09/10/2024 9:26 AM [facility] LAB Potassium 4.4 3.5 - 5.5 mmol/L LAB CHEMISTRY METHOD 09/10/2024 9:26 AM [facility] LAB Chloride 107 96 - 110 mmol/L LAB CHEMISTRY METHOD 09/10/2024 9:26 AM [facility] LAB CO2 30 21 - 32 mmol/L LAB CHEMISTRY METHOD 09/10/2024 9:26 AM [facility] LAB Anion Gap 3 3 - 11 LAB CHEMISTRY METHOD 09/10/2024 9:26 AM [facility] LAB Glucose 85 70 - 100 mg/dL LAB CHEMISTRY METHOD 09/10/2024 9:26 AM [facility] LAB BUN 23 5 - 25 mg/dL LAB CHEMISTRY METHOD 09/10/2024 9:26 AM [facility] LAB Creatinine 1.09 0.50 - 1.10 mg/dL LAB CHEMISTRY METHOD 09/10/2024 9:26 AM [facility] LAB eGFR 53(L) >=60 mL/min/1. 73m2 LAB CHEMISTRY METHOD 09/10/2024 9:26 AM [facility] LAB Comment:Calculation based on the Chronic Kidney Disease Epidemiology Collaboration (CKD-EPI) equation refit without adjustment for race. BUN/Creatinine Ratio 21.1 LAB CHEMISTRY METHOD 09/10/2024 9:26 AM [facility] LAB Calcium 9.3 8.5 - 10.5 mg/dL LAB CHEMISTRY METHOD 09/10/2024 9:26 AM [facility] LAB Blood Venous blood specimen / Unknown Venipuncture / Unknown 09/10/2024 5:58 AM EST 09/10/2024 8:24 AM EST us Baldemar Blackman MD LAB BLOOD ORDERABLES Final Res ult [facility] [address] [place] [address], documented in this encounter Visit Diagnoses Diagnosis Encounter for other general examination documented in this encounter Care Teams Clothes Shaker Relationship Specialty Start Date End Date Baldemar Blackman MD [address] [place] [phone] PCP - General Internal Medicine 09/14/24 documented as of this encounter
== END 2025-05-25 12:51 | disposition home or self-care (01) ==
LOC: HO.HGI 12:07
PROVIDERS: PCP Nurse Practitioner Family; Visit Provider Nurse Practitioner
DX: Q40.3 Congenital malformation of stomach, unspecified (principal); H81.10 Benign paroxysmal vertigo, unspecified ear; R51.9 Headache, unspecified
CPT/HCPCS: 99214

== ENCOUNTER → 2025-05-25 12:06 | Outpatient (BNVA) | payer MEDICARE, SELFPAY | PROVIDERS: PCP Nurse Practitioner Family; Visit Provider Nurse Practitioner | DX: Q40.3 Congenital malformation of stomach, unspecified (principal); H81.10 Benign paroxysmal vertigo, unspecified ear; R51.9 Headache, unspecified | CPT/HCPCS: 99212 ==

== ENCOUNTER 2025-07-13 14:00 | Outpatient (RCR) | payer MEDICARE, SELFPAY | END 2025-07-15 10:33 | disposition home or self-care (01) | LOC: HO.PTCHIC 14:00 | PROVIDERS: PCP Nurse Practitioner Family; Visit Provider Orthopaedic Surgery | DX: Z47.1 Aftercare following joint replacement surgery (principal); Z96.651 Presence of right artificial knee joint | CPT/HCPCS: 97110; 97140; 97162 ==

== ENCOUNTER 2025-07-21 12:27 | Outpatient (REF) | payer MEDICARE, SELFPAY ==
--- OUTSIDE RECORDS SUMMARY | 2025-07-21 17:17 | XMS_ITS | Encounter Summary ---
Author Organization [facility] Address [address] [place] [address] Care Team Providers Care Disability Representative Name Role Phone Baldemar Blackman MD Primary Care Provider Encounter Details Date Type Department Care Team (Late st Contact Info) Description 09/05/[address] [facility] - Main Lab [address] [place] [address] Baldemar Blackman MD [address] [place] [address] Encounter for other general examination Social History [...] AM EST) WBC 7.4 4.8 - 10.8 K/[facility] LAB HEMETOLOGY METHOD 09/05/2024 11:10 AM EST [facility] RBC 3.80 3.80 - 4.80 M/mcL LAB HEMETOLOGY METHOD 09/05/2024 11:10 AM [facility] LAB Hemoglobin 10.3(L) 11.5 - 16.0 g/dL LAB HEMETOLOGY METHOD 09/05/2024 11:10 AM [facility] LAB Hematocrit 32.8(L) 35.0 - 47.0 % LAB HEMETOLOGY METHOD 09/05/2024 11:10 AM [facility] LAB MCV 86.3 79.0 - 98.0 FL LAB HEMETOLOGY METHOD 09/05/2024 11:10 AM [facility] LAB MCH 27.1 27.0 - 32.0 pcg LAB HEMETOLOGY METHOD 09/05/2024 11:10 AM [facility] LAB MCHC 31.4(L) 32.0 - 37.0 g/dL LAB HEMETOLOGY METHOD 09/05/2024 11:10 AM [facility] LAB RDW 14.8 11.0 - 15.0 % LAB HEMETOLOGY METHOD 09/05/2024 11:10 AM [facility] LAB Platelets 170 130 - 400 K/mcL LAB HEMETOLOGY METHOD 09/05/2024 11:10 AM [facility] LAB MPV 11.0 7.0 - 11.0 FL LAB HEMETOLOGY METHOD 09/05/2024 11:10 AM [facility] LAB NRBC 0.0 <1.0 % LAB HEMETOLOGY METHOD 09/05/2024 11:10 AM [facility] LAB NRBC Absolute 0.00 <0.10 K/mcL LAB HEMETOLOGY METHOD 09/05/2024 11:10 AM [facility] LAB Neutrophils Relative 67.5 % LAB HEMETOLOGY METHOD 09/05/2024 11:10 AM [facility] LAB Lymphocytes Relative 17.1 % LAB HEMETOLOGY METHOD 09/05/2024 11:10 AM [facility] Monocytes Relative 12.2 % LAB HEMETOLOGY METHOD 09/05/2024 11:10 AM [facility] LAB Eosinophils Relative 2.7 % LAB HEMETOLOGY METHOD 09/05/2024 11:10 AM [facility] Basophils Relative 0.4 % LAB HEMETOLOGY METHOD 09/05/2024 11:10 AM [facility] LAB Immature Granulocytes Relative 0.1 % LAB HEMETOLOGY METHOD 09/05/2024 11:10 AM [facility] LAB Neutrophils Absolute 4.97 1.50 - 7.00 K/mcL LAB HEMETOLOGY METHOD 09/05/2024 11:10 AM [facility] LAB Lymphocytes Absolute 1.26 1.00 - 5.00 K/mcL LAB HEMETOLOGY METHOD 09/05/2024 11:10 AM [facility] LAB Monocytes Absolute 0.90 0.20 - 1.00 K/mcL LAB HEMETOLOGY METHOD 09/05/2024 11:10 AM [facility] LAB Eosinophils Absolute 0.20 0.00 - 0.50 K/mcL LAB HEMETOLOGY METHOD 09/05/2024 11:10 AM [facility] LAB Basophils Absolute 0.03 0.00 - 0.20 K/mcL LAB HEMETOLOGY METHOD 09/05/2024 11:10 AM [facility] LAB Immature Granulocytes Absolute 0.01 0.00 - 0.03 K/mcL LAB HEMETOLOGY METHOD 09/05/2024 11:10 AM [facility] LAB Blood Venous blood specimen / Unknown Venipuncture / Unknown 09/05/2024 6:54 AM EST 09/05/2024 9:50 AM EST us Baldemar Blackman MD LAB BLOOD ORDERABLES Final Res ult [facility] [address] [place] [address], [place] [phone] * (ABNORMAL) Magnesium (09/05/2024 6:54 AM EST) Magnesium 1.8(L) 1.9 - 2.6 mg/dL LAB CHEMISTRY METHOD 09/05/2024 11:31 AM EST [facility] Blood Venous blood specimen / Unknown Venipuncture / Unknown 09/05/2024 6:54 AM EST 09/05/2024 9:50 AM EST Baldemar Blackman MD LAB BLOOD ORDERABLES Final Res ult Performing Organization Address [facility]/State/ZIP Co de Phone Number [facility] [address] [place] [address], [place] [phone] * (ABNORMAL) Comprehensive metabolic panel (09/05/2024 6:54 AM EST) Pathologist [facility] Sodium 139 133 - 145 mmol/L LAB CHEMISTRY METHOD 09/05/2024 11:31 AM [facility] Potassium 4.4 3.5 - 5.5 mmol/L LAB CHEMISTRY METHOD 09/05/2024 11:31 AM [facility] Chloride 107 96 - 110 mmol/L LAB CHEMISTRY METHOD 09/05/2024 11:31 AM [facility] CO2 25 21 - 32 mmol/L LAB CHEMISTRY METHOD 09/05/2024 11:31 AM [facility] LAB Anion Gap 7 3 - 11 LAB CHEMISTRY METHOD 09/05/2024 11:31 AM [facility] Glucose 85 70 - 100 mg/dL LAB CHEMISTRY METHOD 09/05/2024 11:31 AM [facility] BUN 23 5 - 25 mg/dL LAB CHEMISTRY METHOD 09/05/2024 11:31 AM [facility] Creatinine 0.92 0.50 - 1.10 mg/dL LAB CHEMISTRY METHOD 09/05/2024 11:31 AM [facility] LAB eGFR 65 >=60 mL/min/1. 73m2 LAB CHEMISTRY METHOD 09/05/2024 11:31 AM [facility] Comment:Calculation based on the Chronic Kidney Disease Epidemiology Collaboration (CKD-EPI) equation refit without adjustment for race. BUN/Creatinine Ratio 25.0 LAB CHEMISTRY METHOD 09/05/2024 11:31 AM [facility] Calcium 9.3 8.5 - 10.5 mg/dL LAB CHEMISTRY METHOD 09/05/2024 11:31 AM [facility] AST (SGOT) 87(H) 10 - 42 unit/L LAB CHEMISTRY METHOD 09/05/2024 11:31 AM [facility] ALT (SGPT) 98(H) 10 - 60 unit/L LAB CHEMISTRY METHOD 09/05/2024 11:31 AM [facility] Alkaline Phosphatase 305(H) 42 - 121 unit/L LAB CHEMISTRY METHOD 09/05/2024 11:31 AM [facility] Total Protein 4.9(L) 6.0 - 8.0 g/dL LAB CHEMISTRY METHOD 09/05/2024 11:31 AM [facility] Albumin 2.6(L) 3.2 - 5.0 g/dL LAB CHEMISTRY METHOD 09/05/2024 11:31 AM [facility] Total Bilirubin 0.6 0.0 - 1.4 mg/dL LAB CHEMISTRY METHOD 09/05/2024 11:31 AM [facility] Blood Venous blood specimen / Unknown Venipuncture / Unknown 09/05/2024 6:54 AM EST 09/05/2024 9:50 AM EST us Baldemar Blackman MD LAB BLOOD ORDERABLES Final Res ult [facility] [address] [place] [address], documented in this encounter Visit Diagnoses Diagnosis Encounter for other general examination documented in this encounter Care Teams Disability Representative Relationship Specialty Start Date End Date Baldemar Blackman MD [address] [place] [phone] PCP - General Internal Medicine 09/14/24 documented as of this encounter
--- OUTSIDE RECORDS SUMMARY | 2025-07-21 17:17 | XMS_ITS | Clinical Summary ---
Author Organization [address] [facility] Address [address] [place] [address] Phone Care Team Providers Care Catalyst Operator Gasoline Name Role Phone Baldemar Blackman MD Primary Care Provider [phone] Social History Tobacco Use Types Packs/Day Years [...] 10/24/2023 Social Influencers of Health Screening 10/24/2023 Depression Screening 09/30/2024 COVID-19 Vaccine ( - 2023-2 5 season) 2025 Influenza Vaccine (#1) 2025 HIB Vaccines Aged [...] age to complete this topic Care Teams Catalyst Operator Gasoline Relationship Specialty Start Date End Date Baldemar Blackman MD [address] [place] [phone] PCP - General Internal Medicine 09/14/24
--- OUTSIDE RECORDS SUMMARY | 2025-07-21 17:17 | XMS_ITS | Encounter Summary ---
Author Organization [facility] Address [address] [place] [address] Care Team Providers Care Supervisor Coffee Name Role Phone Baldemar Blackman MD Primary Care Provider Encounter Details Date Type Department Care Team (Late st Contact Info) Description 09/14/2024 Lab Requisition [facility] - Main Lab [address] [place] [address] Baldemar Blackman MD [address] [place] [phone] Encounter for other general examination Social History [...] LAB HEMETOLOGY METHOD 09/14/2024 9:19 AM EST [facility] RBC 3.80 3.80 - 4.80 M/mcL LAB HEMETOLOGY METHOD 09/14/2024 9:19 AM EST [facility] LAB Hemoglobin 10.2(L) 11.5 - 16.0 g/dL LAB HEMETOLOGY METHOD 09/14/2024 9:19 AM [facility] LAB Hematocrit 33.4(L) 35.0 - 47.0 % LAB HEMETOLOGY METHOD 09/14/2024 9:19 AM [facility] LAB MCV 88.8 79.0 - 98.0 FL LAB HEMETOLOGY METHOD 09/14/2024 9:19 AM EST [facility] LAB MCH 27.1 27.0 - 32.0 pcg LAB HEMETOLOGY METHOD 09/14/2024 9:19 AM [facility] LAB MCHC 30.5(L) 32.0 - 37.0 g/dL LAB HEMETOLOGY METHOD 09/14/2024 9:19 AM [facility] LAB RDW 14.7 11.0 - 15.0 % LAB HEMETOLOGY METHOD 09/14/2024 9:19 AM [facility] LAB Platelets 352 130 - 400 K/mcL LAB HEMETOLOGY METHOD 09/14/2024 9:19 AM [facility] LAB MPV 9.9 7.0 - 11.0 FL LAB HEMETOLOGY METHOD 09/14/2024 9:19 AM [facility] LAB NRBC 0.0 <1.0 % LAB HEMETOLOGY METHOD 09/14/2024 9:19 AM EST [facility] LAB NRBC Absolute 0.00 <0.10 K/mcL LAB HEMETOLOGY METHOD 09/14/2024 9:19 AM [facility] LAB Blood Venous blood specimen / Unknown Venipuncture / Unknown 09/14/2024 6:28 AM EST 09/14/2024 8:05 AM EST us Baldemar Blackman MD LAB BLOOD ORDERABLES Final Res ult [facility] [address] [place] [address], [place] [phone] * (ABNORMAL) Comprehensive metabolic panel (09/14/2024 6:28 AM EST) Sodium 143 133 - 145 mmol/L LAB CHEMISTRY METHOD 09/14/2024 9:52 AM [facility] Potassium 4.7 3.5 - 5.5 mmol/L LAB CHEMISTRY METHOD 09/14/2024 9:52 AM [facility] Chloride 107 96 - 110 mmol/L LAB CHEMISTRY METHOD 09/14/2024 9:52 AM [facility] CO2 28 21 - 32 mmol/L LAB CHEMISTRY METHOD 09/14/2024 9:52 AM [facility] Anion Gap 8 3 - 11 LAB CHEMISTRY METHOD 09/14/2024 9:52 AM [facility] LAB Glucose 89 70 - 100 mg/dL LAB CHEMISTRY METHOD 09/14/2024 9:52 AM [facility] BUN 23 5 - 25 mg/dL LAB CHEMISTRY METHOD 09/14/2024 9:52 AM [facility] Creatinine 1.07 0.50 - 1.10 mg/dL LAB CHEMISTRY METHOD 09/14/2024 9:52 AM [facility] LAB eGFR 54(L) >=60 mL/min/1. 73m2 LAB CHEMISTRY METHOD 09/14/2024 9:52 AM [facility] LAB Comment:Calculation based on the Chronic Kidney Disease Epidemiology Collaboration (CKD-EPI) equation refit without adjustment for race. BUN/Creatinine Ratio 21.5 LAB CHEMISTRY METHOD 09/14/2024 9:52 AM [facility] Calcium 9.6 8.5 - 10.5 mg/dL LAB CHEMISTRY METHOD 09/14/2024 9:52 AM [facility] AST (SGOT) 28 10 - 42 unit/L LAB CHEMISTRY METHOD 09/14/2024 9:52 AM [facility] ALT (SGPT) 68(H) 10 - 60 unit/L LAB CHEMISTRY METHOD 09/14/2024 9:52 AM EST [facility] LAB Alkaline Phosphatase 232(H) 42 - 121 unit/L LAB CHEMISTRY METHOD 09/14/2024 9:52 AM [facility] Total Protein 5.0(L) 6.0 - 8.0 g/dL LAB CHEMISTRY METHOD 09/14/2024 9:52 AM [facility] Albumin 2.8(L) 3.2 - 5.0 g/dL LAB CHEMISTRY METHOD 09/14/2024 9:52 AM [facility] Total Bilirubin 0.4 0.0 - 1.4 mg/dL LAB CHEMISTRY METHOD 09/14/2024 9:52 AM [facility] LAB Blood Venous blood specimen / Unknown Venipuncture / Unknown 09/14/2024 6:28 AM EST 09/14/2024 8:05 AM EST us Baldemar Blackman MD LAB BLOOD ORDERABLES Final Res ult [facility] [address] [place] [address], documented in this encounter Visit Diagnoses Diagnosis Encounter for other general examination documented in this encounter Care Teams Supervisor Coffee Relationship Specialty Start Date End Date Baldemar Blackman MD [address] [place] [phone] PCP - General Internal Medicine 09/14/24 documented as of this encounter
--- OUTSIDE RECORDS SUMMARY | 2025-07-21 17:17 | XMS_ITS | Encounter Summary ---
Author Organization [facility] Address [address] [place] [address] Care Team Providers Care Opal Miner Name Role Phone Baldemar Blackman MD Primary Care Provider [phone] Encounter Details Date Type Department Care Team (Late st Contact Info) Description 09/10/2024 Lab Requisition [facility] Lab [address] [place] [address] Baldemar Blackman MD [address] [place] [phone] Encounter for other general examination Social History [...] LAB HEMETOLOGY METHOD 09/10/2024 9:11 AM EST [facility] RBC 3.60(L) 3.80 - 4.80 M/[facility] LAB HEMETOLOGY METHOD 09/10/2024 9:11 AM EST [facility] Hemoglobin 9.7(L) 11.5 - 16.0 g/dL LAB HEMETOLOGY METHOD 09/10/2024 9:[address] [facility] Hematocrit 31.3(L) 35.0 - 47.0 % LAB HEMETOLOGY METHOD 09/10/2024 9:[address] [facility] MCV 88.2 79.0 - 98.0 FL LAB HEMETOLOGY METHOD 09/10/2024 9:[address] [facility] MCH 27.3 27.0 - 32.0 pcg LAB HEMETOLOGY METHOD 09/10/2024 9:[address] [facility] MCHC 31.0(L) 32.0 - 37.0 g/dL LAB HEMETOLOGY METHOD 09/10/2024 9:[address] [facility] RDW 14.4 11.0 - 15.0 % LAB HEMETOLOGY METHOD 09/10/2024 9:[address] [facility] Platelets 273 130 - 400 K/mcL LAB HEMETOLOGY METHOD 09/10/2024 9:[address] [facility] MPV 10.3 7.0 - 11.0 FL LAB HEMETOLOGY METHOD 09/10/2024 9:[address] [facility] NRBC 0.0 <1.0 % LAB HEMETOLOGY METHOD 09/10/2024 9:11 AM EST [facility] NRBC Absolute 0.00 <0.10 K/mcL LAB HEMETOLOGY METHOD 09/10/2024 9:[address] [facility] Blood Venous blood specimen / Unknown Venipuncture / Unknown 09/10/2024 5:58 AM EST 09/10/2024 8:24 AM EST us Baldemar Blackman MD LAB BLOOD ORDERABLES Final Res ult [facility] [address] [place] [address], [place] [phone] * (ABNORMAL) Basic metabolic panel (09/10/2024 5:58 AM EST) Sodium 140 133 - 145 mmol/L LAB CHEMISTRY METHOD 09/10/2024 9:[address] [facility] Potassium 4.4 3.5 - 5.5 mmol/L LAB CHEMISTRY METHOD 09/10/2024 9:[address] [facility] Chloride 107 96 - 110 mmol/L LAB CHEMISTRY METHOD 09/10/2024 9:[address] [facility] CO2 30 21 - 32 mmol/L LAB CHEMISTRY METHOD 09/10/2024 9:[address] [facility] Anion Gap 3 3 - 11 LAB CHEMISTRY METHOD 09/10/2024 9:[address] [facility] Glucose 85 70 - 100 mg/dL LAB CHEMISTRY METHOD 09/10/2024 9:[address] [facility] BUN 23 5 - 25 mg/dL LAB CHEMISTRY METHOD 09/10/2024 9:[address] [facility] Creatinine 1.09 0.50 - 1.10 mg/dL LAB CHEMISTRY METHOD 09/10/2024 9:[address] [facility] eGFR 53(L) >=60 mL/min/1. 73m2 LAB CHEMISTRY METHOD 09/10/2024 9:[address] [facility] Comment:Calculation based on the Chronic Kidney Disease Epidemiology Collaboration (CKD-EPI) equation refit without adjustment for race. BUN/Creatinine Ratio 21.1 LAB CHEMISTRY METHOD 09/10/2024 9:[address] [facility] Calcium 9.3 8.5 - 10.5 mg/dL LAB CHEMISTRY METHOD 09/10/2024 9:[address] [facility] Blood Venous blood specimen / Unknown Venipuncture / Unknown 09/10/2024 5:58 AM EST 09/10/2024 8:24 AM EST us Baldemar Blackman MD LAB BLOOD ORDERABLES Final Res ult [facility] ([facility] [address] [place] [address], documented in this encounter Visit Diagnoses Diagnosis Encounter for other general examination documented in this encounter Care Teams Opal Miner Relationship Specialty Start Date End Date Baldemar Blackman MD [address] [place] [phone] PCP - General Internal Medicine 09/14/24 documented as of this encounter
== END 2025-07-21 12:28 | disposition home or self-care (01) ==
LOC: HO.MAMMO 12:27
PROVIDERS: PCP Nurse Practitioner Family; Visit Provider Nurse Practitioner Family
DX: Z12.31 Encounter for screening mammogram for malignant neoplasm of breast (principal)
CPT/HCPCS: 77063; 77067

== ENCOUNTER → 2025-07-21 12:45 | Outpatient (BNV) | payer MEDICARE, SELFPAY | PROVIDERS: PCP Nurse Practitioner Family; Visit Provider Radiology Body Imaging | DX: Z12.31 Encounter for screening mammogram for malignant neoplasm of breast (principal) | CPT/HCPCS: 77063; 77067 ==

== ENCOUNTER 2025-08-02 12:59 | Outpatient (REF) | payer MEDICARE, SELFPAY | END 2025-08-02 13:00 | disposition home or self-care (01) | LOC: HO.LAB 12:59 | PROVIDERS: PCP Nurse Practitioner Family; Visit Provider Registered Nurse | DX: G43.109 Migraine with aura, not intractable, without status migrainosus (principal); R20.2 Paresthesia of skin; R20.0 Anesthesia of skin; F41.9 Anxiety disorder, unspecified | CPT/HCPCS: 36415; 85652; 86140; 99202 ==

== ENCOUNTER 2025-08-02 12:59 | Outpatient (AMB) | payer MEDICARE, SELFPAY ==
--- NOTE | 2025-08-02 13:10 | MHC.OFFVIS ---
Intake Visit Reasons: N/V and dizziness, nausea not explained Allergies adhesive Allergy (Severe, Verified 08/02/25 13:15) Hives ondansetron (From ZOFRAN ( HYDROCHLORIDE)) Allergy (Unknown, Verified 08/02/25 13:15) ANAPHYLAXIS Medication List - Last Reconciled 08/02/25 by Cailin Tripathi CNP albuterol sulfate 90 mcg/actuation 90 mcg inhalation DAILY atorvastatin 20 mg PO BEDTIME clonazepam 0.5 mg PO TID PRN 30 days esomeprazole magnesium (Nexium) 40 mg PO .qam ac famotidine (Pepcid) 40 mg PO BEDTIME gabapentin 300 mg orally; 1 tab in the am, 2 tabs at bedtime 30 days levothyroxine 88 mcg PO DAILY nystatin 1 appl topical TID sucralfate (Carafate) 1 g PO QNOON trazodone 100 mg PO BEDTIME vibegron (Gemtesa) 75 mg PO DAILY HPI Comments Details: 74-year-old woman with history of right breast cancer in 2008 s/p lumpectomy, radiation, and chemotherapy, hypothyroidism, hyperparathyroidism following with endocrinology, known low-grade dysplasia of the stomach monitored via endoscopy every 3 months with next endoscopy scheduled for later this week and persistent GI issues (including constipation, diarrhea, nausea, and sometimes vomiting) following with GI here for spatial disorientation and other neurological symptoms. She has history of menstrual migraines and vertigo. She reports feeling spatially off for about a year or longer. She reports feeling off and somewhat off balance without actual dizziness, and finds it challenging to articulate exactly what she is feeling. This feeling is not similar to episodes of vertigo in the past, which were characterized by eyes jumping and feeling of room spinning. She reports left-sided paresthesia, which started in the arm about a month ago and more recently in leg about a week ago. No specific triggers identified. She generally feels weaker over the last year. No recent falls. She has headaches, few times each week, with pain usually to the back right side of head. Severity of pain varies from mild to more severe, requiring her to lay down in a dark quiet room. She also gets few episodes of visual disturbances of zigzags a few times a week, which may last between 5-60 minutes. She has not noticed if headaches follow these episodes. She also has not noticed if symptoms of nausea or spatial disorientation worsen after or with these episodes, or with headaches. No history of head trauma. She had head CT ordered by GI scheduled for tomorrow. She has some chronic stress related to 's diagnosis of Lewy body dementia. He was in nursing facility. [facility] Medical History Iliotibial band syndrome of right side Pulmonary nodule Gastric dysplasia Osteoarthritis of left knee Osteoarthritis Elevated alkaline phosphatase level Osteoarthritis of right knee Right rotator cuff tear History of kidney disease Multiple adenomatous polyps Upper respiratory infection Spleen anomaly Dizziness SOB (shortness of breath) Vestibular disequilibrium Pre-op examination Preoperative cardiovascular examination Bilateral knee pain Postmenopausal Breast cancer Fracture of femoral neck, left Preoperative clearance Early satiety Nausea Right shoulder pain Nausea and vomiting History of breast cancer Skin lesions Screening for lipid disorders Irritable bowel syndrome with constipation Screening for colon cancer Physical exam History of sepsis CKD (chronic kidney disease) CLYDE (obstructive sleep apnea) Clostridium difficile infection Lupus Glaucoma Sleep apnea Hypothyroidism Closed fracture of neck of left femur Fibromyalgia Surgical History History of total right knee replacement (TKR) History of total right knee replacement H/O shoulder surgery Hx of tonsillectomy History of hip surgery History of esophagogastroduodenoscopy (EGD) H/O colonoscopy History of cholecystectomy Family History Father Heart attack Clogged artery (heart) COPD (chronic obstructive pulmonary disease) Mother Stroke Clogged artery (heart) Sister COPD (chronic obstructive pulmonary disease) Brother COPD (chronic obstructive pulmonary disease) Social History Household Members: None Housing: Apartment Housing Other:: fci Are you a primary aged or disabled care worker to a significant other at home: No Do you presently have visiting nurse or other home services: No Patient Tobacco Use Status: Never used Tobacco e-Cigarette/Vaping Use: Never Used Second Hand Smoke Exposure: No service: No Current occupational status: retired Gender identity: Female Cognitive needs: No Hearing needs: No Vision needs: No Review of Systems Const Reports difficulty sleeping, Denies fatigue, Denies fever(s), Reports headache(s), Reports weakness, Denies weight gain and Denies weight loss Eyes Reports blurry vision (wears glasses), Denies diplopia, Denies dry eyes and Denies eye pain ENT Denies Normal hearing present, Denies dysphagia, Reports dizziness, Denies otalgia, Reports headache(s) and Denies sore throat Card Denies chest pain, Denies syncope, Denies leg edema, Reports palpitations and Reports dyspnea Resp Reports cough and Reports dyspnea GI Reports abdominal pain, Reports constipation, Denies dysphagia, Reports diarrhea, Reports nausea, Denies vomiting and Reports other (delayed gastric emptying ) Denies urinary frequency, Reports urinary incontinence and Reports urinary urgency Musc Denies abnormal gait, Reports back pain, Denies myalgias, Reports arthralgias, Reports limited range of motion, Reports muscle cramps, Reports numbness and Reports tingling Skin/Breast Reports pruritus, Denies lesions and Denies rash Neuro Denies Normal hearing present, Denies abnormal gait, Reports dizziness, Denies syncope, Reports headache(s), Reports memory loss, Reports numbness, Denies restless legs, Denies seizure-like activity, Reports tingling, Denies tremor(s) and Reports weakness Psych Denies anxiety, Denies depression, Denies auditory hallucinations, Reports memory loss, Denies visual hallucinations, Denies homicidal ideation and Denies suicidal ideation Endo Reports cold intolerance, Denies fatigue, Reports heat intolerance and Reports palpitations Anibal/Lymph Denies easy bleeding, Denies easy bruising and Denies lymphadenopathy Physical Exam Const Other: General Appearance:? normal, in no acute distress. Head:? normocephalic, atraumatic. Eyes:? sclera non-icteric, conjunctiva clear. Ears:? auditory canal clear, tympanic membrane intact, clear. Nose:? no lesions. Oral Cavity:? gums normal, mucosa moist, no lesions. Throat:? clear. Neck/Thyroid:? no cervical lymphadenopathy. Skin:? no rashes, no significant birthmarks. Heart:? S1, S2 normal, no murmurs. Lungs:? clear anteriorly and posteriorly. Chest:? no gross rib deformity, clear to auscultation. Extremities:? no edema. Psych:? alert, oriented, cognitive function intact, cooperative with exam. Neuro Other: Mental Status:?Normal attention, orientation, memory and affect.? Cranial Nerves:?Pupils are equal, round and reactive to light. External occular muscles are intact. Visual estes are full. Face is symmetrical. Facial sensations are normal. Tongue is midline. Palate elevates symmetrically. Shoulder shrugging is normal. Hearing to bedside conversation is normal. Motor Examination:?Normal muscle tone, bulk and strength,?Deep tendon reflexes are trace,?Plantars are flexor.? Sensory Exam:?Decreased vibratory sensation. Normal joint position. Coordination:?No ataxia,?no titubation.? Gait Exam: Within normal limits. Cerebellar Signs:?[id number]-[id number] and [id number]-[id number] is normal.? Extrapyramidal System:?No tremor, rigidity with normal facial expressions.? Pronator Drift:?Not present.? Involuntary Movements:?No tremors seen.? Speech:?Normal.? Cranial nerves: No Normal hearing present Assessment & Plan Assessment & Plan (1) Migraine: Code(s): G43.909 - Migraine, unspecified, not intractable, without status migrainosus Category: Medical Qualifiers: Intractability: not intractable Migraine type: unspecified Status migrainosus presence: without status migrainosus Qualified Code(s): G43.909 - Migraine, unspecified, not intractable, without status migrainosus Plan: Cancel CT head, recommend brain MRI instead which will provide better insight given symptoms. MRI brain ordered r/o structural abnormalities. Reviewed labs ordered. (2) Numbness and tingling of left arm and leg: Code(s): R20.0 - Anesthesia of skin; R20.2 - Paresthesia of skin Category: Medical Plan: NCV/EMG BUE/BLE ordered. (3) Anxiety: Code(s): F41.9 - Anxiety disorder, unspecified Category: Medical Plan: Start sertraline 25mg 1 tablet daily in the morning, use/side effects reviewed. (4) Ocular migraine: Code(s): G43.109 - Migraine with aura, not intractable, without status migrainosus Category: Medical Plan Patient was informed and verbally consented to the use of an ambient scribe for clinic note documentation during this visit. Exam, findings, and plan reviewed with Dr. Hoang. Follow up after testing or sooner as needed. Orders: Orders C Reactive Protein Today G43.909 - Migraine, unspecified, not intractable, without status migrainosus NE nerve conduction velocity Today R20.0 - Anesthesia of skin, R20.2 - Paresthesia of skin MR head/brain wo con Today G43.909 - Migraine, unspecified, not intractable, without status migrainosus Erythrocyte Sedimentation Rate Today G43.909 - Migraine, unspecified, not intractable, without status migrainosus NE electromyogram (EMG) Today R20.0 - Anesthesia of skin, R20.2 - Paresthesia of skin Medications: New sertraline 25 mg PO DAILY 30 tabs 2RF 30 days Coding Level of Care Code New Pt Level 5 (45663) Diagnoses Migraine without status migrainosus, not intractable, unspecified migraine type G43.909 Intractability: not intractable Migraine type: unspecified Status migrainosus presence: without status migrainosus Numbness and tingling of left arm and leg R20.0; R20.2 Anxiety F41.9 Ocular migraine G43.109
== END 2025-08-02 13:56 | disposition home or self-care (01) ==
LOC: HO.HSM 13:01
PROVIDERS: PCP Nurse Practitioner Family; Visit Provider Registered Nurse
DX: G43.909 Migraine, unspecified, not intractable, without status migrainosus (principal); R20.0 Anesthesia of skin; R20.2 Paresthesia of skin; F41.9 Anxiety disorder, unspecified; G43.109 Migraine with aura, not intractable, without status migrainosus
CPT/HCPCS: 99204

== ENCOUNTER 2025-08-06 06:57 | Day surgery (SDC) | payer MEDICARE, SELFPAY ==
--- NOTE | 2025-08-04 11:44 | P.CONAN_ITS ---
HPI - Anesthesia Eval Consult details Narrative: 74yo F for Upper Endoscopy s/p same 04/2025 with TIVA Eval with [facility] neurology 07/2025 for migraine, parasthesia, anxiety. Pending brain MRI [facility] Active Problems Active Problems: All Active Problems Ocular migraine (Acute) Anxiety (Acute) Numbness and tingling of left arm and leg (Acute) Migraine (Acute) Chronic daily headache (Acute) History of total right knee replacement (Acute) Right knee pain (Acute) Pulmonary nodule (Acute) Katey albicans infection (Acute) Gastric dysplasia (Acute) Osteoarthritis of knees, bilateral (Acute) Morbid obesity (Acute) Swelling of right knee (Acute) Environmental allergies (Acute) Hyperparathyroidism (Acute) Fatigue (Acute) Lupus (Acute) BPPV (benign paroxysmal positional vertigo) (Acute) Bilateral knee pain (Acute) Tubular adenoma of colon (Acute) Near syncope (Acute) Tachycardia (Acute) Multiple pulmonary nodules (Acute) Dyspnea on exertion (Acute) Bronchiectasis (Acute) Delayed gastric emptying (Acute) Interstitial lung disease (Acute) Chronic cough (Acute) Restless leg syndrome (Acute) Chronic idiopathic constipation (Acute) Sleep apnea (Acute) Fibromyalgia (Acute) Ascending aorta dilatation (Acute) Dyslipidemia (Acute) Hypothyroidism (Acute) Murmur (Acute) Raynauds disease (Acute) Memory loss (Acute) Lakhani esophagus (Acute) Past Medical History Medical History Iliotibial band syndrome of right side Pulmonary nodule Gastric dysplasia Osteoarthritis of left knee Osteoarthritis Elevated alkaline phosphatase level Osteoarthritis of right knee Right rotator cuff tear History of kidney disease Multiple adenomatous polyps Upper respiratory infection Spleen anomaly Dizziness SOB (shortness of breath) Vestibular disequilibrium Pre-op examination Preoperative cardiovascular examination Bilateral knee pain Postmenopausal Breast cancer Fracture of femoral neck, left Preoperative clearance Early satiety Nausea Right shoulder pain Nausea and vomiting History of breast cancer Skin lesions Screening for lipid disorders Irritable bowel syndrome with constipation Screening for colon cancer Physical exam History of sepsis CKD (chronic kidney disease) CLYDE (obstructive sleep apnea) Clostridium difficile infection Lupus Glaucoma Sleep apnea Hypothyroidism Closed fracture of neck of left femur Fibromyalgia Family History Family History Father Heart attack Clogged artery (heart) COPD (chronic obstructive pulmonary disease) Mother Stroke Clogged artery (heart) Sister COPD (chronic obstructive pulmonary disease) Brother COPD (chronic obstructive pulmonary disease) Family history of problems with anesthesia: No Surgical History Surgical History History of total right knee replacement (TKR) History of total right knee replacement H/O shoulder surgery Hx of tonsillectomy History of hip surgery History of esophagogastroduodenoscopy (EGD) H/O colonoscopy History of cholecystectomy History of Problems with Anesthesia: No Social History Social History Household Members: None Housing: Apartment Housing Other:: half-way Are you a primary client care specialist to a significant other at home: No Do you presently have visiting nurse or other home services: No Patient Tobacco Use Status: Never used Tobacco e-Cigarette/Vaping Use: Never Used Second Hand Smoke Exposure: No service: No Current occupational status: retired Gender identity: Female Cognitive needs: No Hearing needs: No Vision needs: No Meds Allergies Allergy/AdvReac Type Severity Reaction Status Date / Time adhesive Allergy Severe Hives Verified 08/02/25 13:15 ondansetron (From ZOFRAN ( Allergy Unknown ANAPHYLAXIS Verified 08/02/25 13:15 HYDROCHLORIDE)) Home Medications ?Medication ?Instructions ?Recorded ?Confirmed ?Last Taken ?Type vibegron 75 mg tablet (Gemtesa) 75 mg PO DAILY 4 08/02/25 Unknown History albuterol sulfate 90 mcg/actuation 90 mcg inhalation D AILY 08/18/24 08/02/25 Unknown History aerosol inhaler Exam Pertinent Lab Results Pertinent Lab Results: Laboratory Tests 12/10/24 11:25 WBC 5.8 Hgb 16.0 D Hct 49.2 H D Plt Count 182 Sodium 138 Potassium 4.2 Chloride 109 H Carbon Dioxide 18 L BUN 20 H Creatinine 1.07 Narrative Narrative: ECHO 06/2024 Conclusions: - 1. Normal LV ejection fraction of 65-70% with impaired relaxation filling pattern 2. Trivial aortic regurgitation 3. Mildly dilated ascending aorta at 3.9 cm 4. Normal RV systolic pressure 5. No gross pericardial effusion NM cardiolite stress test 2023 Impression: 1. Myocardial perfusion imaging study shows likely normal myocardial perfusion. 2. Gated LVEF is 64% during rest. Visually normal during stress. 3. Transient ischemic dilatation not present. EKG component of the test reported separately. Holter 2023 1. Patient was monitored for 1 day and 23 hours 2. Baseline was normal sinus rhythm with average heart of 76 beats per minute 3. No significant pauses noted 4. Occasional PACs noted 5. No patient reported events Assessment and Plan Assessment Anesthesia Assessment: Chart Reviewed Final Anesthetic Review Family History of Problems with Anesthesia: No History of Problems with Anesthesia: No
[2025-08-04 15:52] VITALS: BMI 32.4
[2025-08-06 07:45] VITALS: BP 145/58; PULSE 75; RESP 16; TEMP 36.9; O2SAT 97; BMI 32.9
[2025-08-06] MEDS: Lactated Ringers 1,000 ML 100 ML IVCONT (07:51)
--- NOTE | 2025-08-06 09:22 | MHC.SHP ---
Pre-Procedural Eval Section A - 24 Hr Update-Section A only Date of Service: 08/06/25 The patient is an INPATIENT: No The patient has been examined within 24 hours of the surgical procedure. The History & Physical has been completed within 30 days and I have reviewed it.: No Section B - Complete if H&P > 30 days Chief Complaint: Congenital malformation of stomach, unspecified Relevant Family History (Specify if Yes): No Relevant Social History: None Present Medications: see Short Stay Collaborative assessment Medical History: Significant History (Significant History (Bilateral knee pain Postmenopausal Breast cancer Fracture of femoral neck, left Pulmonary nodule Preoperative clearance Early satiety Nausea Right shoulder pain Nausea and vomiting) History of Previous Operations: Relevant previous surgery/procedure and date(s) (History of total right knee replacement (TKR) History of total right knee replacement H/O shoulder surgery Hx of tonsillectomy History of hip surgery History of esophagogastroduodenoscopy (EGD) H/O colonoscopy History of cholecystectomy) Allergies: Allergies Allergy/AdvReac Type Severity Reaction Status Date / Time adhesive Allergy Severe Hives, Verified 08/04/25 15:52 bleeding ondansetron (From ZOFRAN ( Allergy Severe ANAPHYLAXIS Verified 08/04/25 15:52 HYDROCHLORIDE)) Review of Systems Sugical H&P ROS: Negative: Constitution, Cardiovascular, Respiratory and Gastrointestinal Exam Surgical H&P Exam: Normal: Heart, Normal: Lungs, Normal: Extremities and Normal: Abdomen Plan Diagnosis/Plan: Unchanged I have reviewed the history and physical and performed a pertinent physical examination on my patient. No changes have occurred unless specified. Time Spent With Patient Time: Total time managing care of this patient today ____ minutes.
--- NOTE | 2025-08-06 10:22 | W.PM.OPN ---
Operative Note Operative Note Date of Service: 08/06/25 Narrative: FLEXIBLE TRANSORAL UPPER GASTROINTESTINAL ENDOSCOPY WITH SNARE POLYPECTOMY, AND HYBRID APC OF GASTRIC POLYP Pre-op diagnosis: FU of gastric polyps with low-grade dysplasia Post-op diagnosis: Hiatal hernia, multiple gastric polyps Endoscopist:Phuc Grigsby MD Anesthesia:?MAC UPPER ENDOSCOPY Consent: Indications for the procedure and potential complications of bleeding, perforation, reaction to medications and missed diagnosis were discussed with the patient and informed consent was obtained. Instrument: Olympus GIF H 190 mid size upper endoscope Monitoring: Vital signs and clinical assessment, continuous EKG monitoring, Pulse oximetry, Carbon Dioxide monitoring and blood pressure monitoring were done throughout the procedure. Procedure: The patient was placed in the left lateral decubitis position and pre-procedure medications were administered and a bite block was placed. The endoscope was inserted into the mouth and advanced under direct vision to the third part of duodenum. A careful inspection was made as the upper endoscope was withdrawn including a retroflexed examination of the proximal stomach; Findings and interventions are described below. Findings: Larynx: Normal Esophagus: GE junction at 32 cms, hiatal hernia 32 to 35 cms. A 1 cms tongue of possible Lakhani's - Biopsies obtained during previous EGD were negative for Lakhani's. No esophagitis Stomach: Multiple 5 -10 mm benign appearing polyps in the gastric body. Two 3 cms polyps at 45 cms along the greater curvature with hemoclip placed during previous EGD. Polyps were partially removed with a stiff hot snare and retrieved with a Crouch net. Residual polyps were removed/ablated with hybrid APC Moderate diffuse gastric erythema - biopsies obtained during past EGD were negative for H pylori. Duodenum: Normal bulb and descending duodenum Intervention: Snare polypectomy, hybrid APC of gastric polyp as noted above Impression and Post Procedure Diagnosis: Endoscopy Findings: ESOPHAGUS: Medium sized hiatal hernia STOMACH: Two 3 cms polyps at 45 cms along the greater curvature. Polyps were partially removed with a stiff hot snare and retrieved with a Crouch net. Residual polyps were removed/ablated with hybrid APC DUODENUM: Normal Plan: Pt has a FU appointment on 08/20/25 with Maxine Diaz NP If persistent LGD on biopsies, repeat EGD in 3 months Above findings were reviewed with the patient and relevant handouts were given and the discharge area.
[2025-08-06 10:27] VITALS: BP 110/75; PULSE 80; RESP 16; TEMP 36.4; O2SAT 98
[2025-08-06 10:42] VITALS: BP 127/46; PULSE 59; RESP 16; TEMP 36.6; O2SAT 99
== END 2025-08-06 11:08 | disposition home or self-care (01) ==
PROVIDERS: PCP Nurse Practitioner Family; Visit Provider Internal Medicine Gastroenterology
PROC: 0DJ08ZZ Inspection of Upper Intestinal Tract, Via Natural or Artificial Opening Endoscopic (ICD-10-PCS; CPT 43235; principal; 2025-08-06 13:10)
DX: Q40.3 Congenital malformation of stomach, unspecified (principal); K30 Functional dyspepsia; K59.09 Other constipation; K31.7 Polyp of stomach and duodenum
CPT/HCPCS: 43251; 43255; 88305; 88313; 88342; C1889; J2704; J3010; Q9968

== ENCOUNTER → 2025-08-06 06:57 | Outpatient (BNV) | payer MEDICARE, SELFPAY | PROVIDERS: PCP Nurse Practitioner Family; Visit Provider Internal Medicine Gastroenterology | DX: K31.7 Polyp of stomach and duodenum (principal) | CPT/HCPCS: 43270 ==

== ENCOUNTER 2025-08-19 13:15 | Outpatient (AMB) | payer MEDICARE, SELFPAY ==
--- OUTSIDE RECORDS SUMMARY | 2025-02-05 10:32 | XMS_ITS ---
Author Organization - [facility] Address [address] [place] [address] Care Team Providers Care Medical Oncology Physician Name Role Phone Ekaterina Escobar Unavailable [phone] REASON FOR VISIT *Care Plan Update Encounters Encounter Location Date Provider Diagnosis - [facility] [address] [facility] [address] [place] [address] 02/05/2025 Ekaterina Escobar Plan Of Treatment No Information Progress Notes * Alejandro IBARRAOneilB:1950 (75 yo F)Acc No.[id number]:02/05/2025 Care Plan Update Patient: Reema ROJO Provider: Teresa Escobar NP :1950 A ge:74 Y S ex:Female Date:02/05/2025 Address:[address] [facility] , [facility] Subjective: * Chief Complaints: * 1 . *Care Plan Update. * Medical History: Objective: * Vitals: Assessment: Plan: * Treatment: Care Plan: * Problems: * Billing Information: Care Plan Details* * Electronic signature of Leia Escobar NP on 08/19/2025 at 06:46 PM EST Sign off status: Pending * Provider: Teresa Escobar NP Date: 0 02/05/2025 Generated for Rashawni ng/Debbie/eTransmitting on: 1 10/19/2024 06:46 PM EST
--- NOTE | 2025-08-19 13:26 | MHC.OFFVIS ---
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 Required: No Allergies adhesive Allergy (Severe, Verified 08/04/25 15:52) Hives, bleeding ondansetron (From ZOFRAN ( HYDROCHLORIDE)) Allergy (Severe, Verified 08/04/25 15:52) ANAPHYLAXIS Medication List - Last Reconciled 08/19/25 by Sixto Anaya MD albuterol sulfate 90 mcg/actuation 90 mcg inhalation DAILY atorvastatin 20 mg PO BEDTIME clonazepam 0.5 mg PO TID PRN 30 days esomeprazole magnesium (Nexium) 40 mg PO BEDTIME famotidine (Pepcid) 40 mg PO BEDTIME levothyroxine 88 mcg PO DAILY trazodone 100 mg PO BEDTIME vibegron (Gemtesa) 75 mg PO DAILY HPI Comments Details: Reema comes for follow-up. She continues to have symptoms of fluttering in his chest. She then does her own EKGs and at that time had shows normal sinus rhythm. The symptoms happening more frequently but they are not sustained. There was no evidence of atrial fibrillation by her own self monitoring as reported. She occasionally gets chest pain which is not exertional related. She denies any lightheadedness, syncope. Denies heart failure related symptoms. [facility] Medical History History of paresthesia Anxiety Migraine Iliotibial band syndrome of right side Pulmonary nodule Gastric dysplasia Osteoarthritis of left knee Osteoarthritis Elevated alkaline phosphatase level Osteoarthritis of right knee Right rotator cuff tear History of kidney disease Multiple adenomatous polyps Upper respiratory infection Spleen anomaly Dizziness SOB (shortness of breath) Vestibular disequilibrium Pre-op examination Preoperative cardiovascular examination Bilateral knee pain Postmenopausal Breast cancer Fracture of femoral neck, left Preoperative clearance Early satiety Nausea Right shoulder pain Nausea and vomiting History of breast cancer Skin lesions Screening for lipid disorders Irritable bowel syndrome with constipation Screening for colon cancer Physical exam History of sepsis CKD (chronic kidney disease) CLYDE (obstructive sleep apnea) Clostridium difficile infection Lupus Glaucoma Sleep apnea Hypothyroidism Closed fracture of neck of left femur Fibromyalgia Surgical History History of total right knee replacement (TKR) History of total right knee replacement (08/2024) H/O shoulder surgery Hx of tonsillectomy History of hip surgery History of esophagogastroduodenoscopy (EGD) (05/14/25) H/O colonoscopy History of cholecystectomy Family History Father Heart attack Clogged artery (heart) COPD (chronic obstructive pulmonary disease) Mother Stroke Clogged artery (heart) Sister COPD (chronic obstructive pulmonary disease) Brother COPD (chronic obstructive pulmonary disease) Social History Household Members: None Housing: Apartment Housing Other:: halfway Are you a primary residential care facility manager to a significant other at home: No Do you presently have visiting nurse or other home services: No Patient Tobacco Use Status: Never used Tobacco e-Cigarette/Vaping Use: Never Used Second Hand Smoke Exposure: No service: No Current occupational status: retired Gender identity: Female Cognitive needs: No Hearing needs: No Vision needs: No Review of Systems Const Denies chills, Denies fatigue, Denies fever(s), Denies frequent falls, Denies weakness, Denies weight gain and Denies weight loss ENT Denies dizziness Card Denies chest pain, Denies leg edema, Denies lightheadedness, Denies palpitations, Denies dyspnea, Denies dyspnea on exertion, Denies orthopnea and Denies other (loss of consciousness) Resp Denies cough, Denies dyspnea and Denies dyspnea on exertion GI Denies hematochezia and Denies change in stool character Musc Denies abnormal gait, Denies muscle weakness, Denies numbness, Denies radiating pain into limb and Denies tingling Neuro Denies Abnormal speech present, Denies abnormal gait, Denies dizziness, Denies frequent falls, Denies numbness, Denies tingling and Denies weakness Endo Denies fatigue and Denies palpitations Physical Exam Vital Signs: Last Vital Signs Pulse 78 08/19/25 13:27 BP 120/76 08/19/25 13:27 BMI result Body Mass Index 31.7 Const General: cooperative, comfortable, no acute distress, alert, awake and well groomed Nutritional Appearance: obese Orientation/consciousness: patient oriented x3 Limitations: no limitations HEENT Head: Yes normocephalic and Yes atraumatic Neck Neck: Yes trachea midline, Yes supple and Yes no JVD Resp Effort & Inspection: normal respiratory effort Auscultation: clear to auscultation bilaterally and diminished lung sounds Cardio Jugular venous distension: no JVD Palpation: normal PMI Rate: regular rate Rhythm: regular rhythm Heart sounds: S1 normal heart sound present, S2 normal heart sound present, no click, no gallops, Murmur heart sound present systolic early and no rubs GI Auscultation: normal bowel sounds Skin General skin exam: no rashes or lesions noted Neuro General: patient oriented x3 and no focal motor deficits Speech: No Abnormal speech present Extrem General: Yes no clubbing, cyanosis or edema Office Procedures EKG Details: EKG shows normal sinus rhythm with poor R-wave progression due to lead placement [id number], Complete Assessment & Plan Assessment & Plan (1) Cardiac arrhythmia: Code(s): I49.9 - Cardiac arrhythmia, unspecified Category: Medical Plan: Patient with cardiac arrhythmias with rare PACs and short atrial runs without any sustained atrial fibrillation. She is at risk for atrial fibrillation given her age, family history as well as obesity. We discussed about pursuing stress mitigation strategies. Avoidance of stimulants was discussed. Continue monitor EKGs at home with her symptoms. Also suggest weight reduction therapy. (2) Ascending aorta dilatation: Code(s): I77.810 - Thoracic aortic ectasia Category: Medical Plan: Ascending aortic dilatation at 3.9 cm. Continue risk factor modification. Continue blood pressure control which is currently well optimized. She is off all medications. Lipid modification goal LDL less than 100 mg/dL. Will follow up in the clinic in 1 year's time after echocardiogram. Thank you for allowing me to partake in her care Coding Level of Care Code Complex visit Add On G2211 Diagnoses Cardiac arrhythmia I49.9 Ascending aorta dilatation I77.810 CPT Codes EKG - CPT: 75836-[id number], Complete ([id number])
[2025-08-19 13:27] VITALS: BP 120/76; PULSE 78; BMI 31.7
--- OUTSIDE RECORDS SUMMARY | 2025-08-19 18:46 | XMS_ITS | Patient Health Record ---
Author Organization - 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 Name Role Phone Ekaterina Escobar Unavailable [phone] ABRAN MANZO Unavailable [phone] GEMINI VASQUEZ Unavailable [phone] Allergies Allergen (clinical drug ingredient) Drug/Non Drug Allergy documented on EMR Reaction Allergy Type Onset Date Status Zofran Unknown Drug Allergy Active Reason For Referral No Information Medications Medication SIG (Take, Route, Frequency, Duration) Notes Start Date End Date Status Flaxseed Oil 1000 MG as directed Orally Active Aspirin 325 MG 1 tablet Orally Once a day; Duration: 17 days prevention Active traZODone HCl 100 MG 1 tablet at bedtime Orally Once a day; Duration: 90 days Insomnia Active clonazePAM 0.5 MG 1 tablet Oral every 8 hours; Duration: 30 days As needed Anxiety Active Gabapentin 300 MG 1 capsule in the morning and 2 tablets at night Orally twice per day; Duration: 30 days Chronic pain and neuropathy Active Albuterol Sulfate HFA 108 (90 Base) MCG/ACT 1 puff as needed Inhalation every 4 hrs; Duration: 25 days As needed SOB Active Senna 8.6 MG TAKE 3 TABLETS BY MOUTH AT BEDTIME Oral; Duration: 30 days As needed contipation Active Atorvastatin Calcium 20 MG TAKE 1 TABLET BY MOUTH AT BEDTIME Oral; Duration: 90 days HLD Active Esomeprazole Magnesium 40 MG TAKE 1 CAPSULE BY MOUTH TWICE DAILY Oral; Duration: 30 days GERD Active Breo Ellipta 100-25 MCG/ACT INHALE 1 PUFF BY MOUTH DAILY Inhalation; Duration: 30 days Asthma Active Gemtesa 75 MG 1 tablet Oral Once a day; Duration: 30 days OAB. Active Meclizine HCl 12.5 MG TAKE 2 TABLETS BY MOUTH TWICE DAILY FOR 7 DAYS NEEDED FOR DIZZINESS Oral; Duration: 7 Days Active Levothyroxine Sodium 88 MCG TAKE 1 TABLET BY MOUTH DAILY Oral; Duration: 30 days Hypothyroidism Active Magnesium Oxide -Mg Supplement 400 (240 Mg) MG TAKE 1 TABLET BY MOUTH AFTER LUNCH FOR 7 DAYS Oral; Duration: 7 Days Active Cranberry Extract 250 MG as directed Orally Active Social History Tobacco Use: Social History Observation Description Date Details (start date - stop date) Never Smoker NA - NA Tobacco Control (Standard) Question Answer Notes Tobacco use: Nonsmoker AUDIT-C (Standard) Question Answer Notes Did you have a drink containing alcohol in the p ast year? No Points 0 Interpretation Negative Problems Problem Type SNOMED Code ICD Code Onset Dates Problem Status W/U Status Risk Notes Problem Obesity due to excess calories (130975319) Other obesity due to excess calories (E66.09) Active confirmed Problem Primary insomnia (3709379) Primary insomnia (F51.01) Active confirmed Problem Age-related osteoporosis (955515550) Age-related osteoporosis without current pathological fracture (M81.0) Active confirmed Problem Incontinence of feces (37014664) Full incontinence of feces (R15.9) Active confirmed Problem Body mass index 30.00 to 34.99 (111882337275022) Body mass index [BMI] 34.0-34.9, adult (Z68.34) Active confirmed Problem Constipation (02330777) Constipation, unspecified constipation type (K59.00) Active confirmed Problem History of fall (118488435) History of fall (Z91.81) Active confirmed Problem Anxiety (88257024) Anxiety (F41.9) Active confi rmed Problem Gastroesophageal reflux disease without esophagitis (534449765) Gastroesophageal reflux disease without esophagitis (K21.9) Active confirmed Problem Inflammatory and toxic neuropathy (326214535) Peripheral polyneuropathy (G62.9) Active confirmed Problem Dizziness (720873108) Dizziness (R42) Active confirmed Problem Acquired hypothyroidism (974980778) Acquired hypothyroidism (E03.9) Active confirmed Problem Overactive urinary bladder (disorder) (512564674) OAB (overactive bladder) (N32.81) Active confirmed Problem Mild recurrent major depression (32667441) Mild episode of recurrent major depressive disorder (F33.0) Active confirmed Problem Mixed incontinence (397700801) Mixed stress and urge urinary incontinence (N39.46) Active confirmed Problem Mild intermittent asthma (512242467) Mild intermittent asthma without complication (J45.20) Active confirmed Problem Hypoparathyroidism (89980940) Hypoparathyroidism, unspecified hypoparathyroidism type (E20.9) Active confirmed Problem Dyslipidemia (871928407) Dyslipidemia (E78.5) Active confirmed Problem Lakhani's esophagus (178814902) 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 No history of HTN. Pain to right knee. Weight-kg 95.26 kg 11/26/2024 BP = has been stable at medical visits. No history of HTN. Pain to right knee. Height 5'5 in 11/26/2024 BP = has been stable at medical visits. No history of HTN. Pain to right knee. Weight 210 lbs 11/26/2024 BP = has been stable at medical visits. No history of HTN. Pain to right knee. BMI 34.94 kg/m2 11/26/2024 BP = has been stable at medical visits. No history of HTN. Pain to right knee. Encounters Encounter Location Date Provider Diagnosis - [facility] [address] [address] 11/26/2024 GEMINI VASQUEZ Other obesity due to excess calories E66.09 ; Body mass index [BMI] 34.0-34.9, adult Z68.34 ; Obesity, class 1 E66.811 ; Acquired hypothyroidism E03.9 ; Dyslipidemia E78.5 ; Dizziness R42 ; Primary osteoarthritis involving multiple joints M15.0 ; Age-related osteoporosis without current pathological fracture M81.0 ; History of fall Z91.81 ; OAB (overactive bladder) N32.81 ; Constipation, unspecified constipation type K59.00 ; Primary insomnia F51.01 ; Hypoparathyroidism, unspecified hypoparathyroidism type E20.9 ; History of rotator cuff tear Z87.39 ; Anxiety F41.9 ; Mixed stress and urge urinary incontinence N39.46 ; Full incontinence of feces R15.9 ; Peripheral polyneuropathy G62.9 ; Gastroesophageal reflux disease without esophagitis K21.9 ; Lakhani's esophagus with dysplasia K22.719 ; Mild intermittent asthma without complication J45.20 and Mild episode of recurrent major depressive disorder F33.0 - [facility] [address] [facility] [address] [place] [address] 11/27/2024 GEMINI VASQUEZ [facility] [address] [facility] [address] [place] [phone] 02/19/2025 Ekaterina Escobar [facility] [address] [place] [phone] 03/31/2025 GEMINI VASQUEZ [facility] [address] [place] [phone] 06/29/2025 ABRAN MANZO [facility] [address] [facility] [address] [place] [address] 11/30/2024 Ekaterina Escobar [facility] [address] [address] 12/16/2024 Ekaterina Escobar [facility] [place] [id number] [facility] [address] [place] [address] 12/17/2024 Ekaterina Escobar [facility] [address] [place] [address] 03/01/2025 Ekaterina Escobar Assessments Encounter Date Diagnosis (ICD Code) Assessment Notes Treatment Notes Treatment Clinical Notes Section Notes 11/26/2024 Other obesity due to excess calories (ICD-10 - E66.09) Member prognosis related to the multiple diagnoses good. 11/26/2024 Body mass index [BMI] 34.0-34.9, adult (ICD-10 - Z68.34) Member prognosis related to the multiple diagnoses good. 11/26/2024 Obesity, class 1 (ICD-10 - E66.811) Patient condition is stable. Advised member on benefits of weight loss on joint and overall health. Recommended to slightly decrease total daily caloric intake to promote steady weight loss over time. Patient will continue current medications as listed above in verified medication list and continue care with prescribing provider Member prognosis related to the multiple diagnoses good. 11/26/2024 Acquired hypothyroidism (ICD-10 - E03.9) Patient condition is stable. Patient will continue current medications as listed above in verified medication list and continue care with prescribing provider Member prognosis related to the multiple diagnoses good. 11/26/2024 Dyslipidemia (ICD-10 - E78.5) Patient condition is stable. Advised member to avoid fatty/fried/pro cessed foods in daily diet. Patient will continue current medications as listed above in verified medication list and continue care with prescribing provider Member prognosis related to the multiple diagnoses good. 11/26/2024 Dizziness (ICD-10 - R42) Patient condition is stable. Fall precautions discussed due to high risk. Patient will continue current medications as listed above in verified medication list and continue care with prescribing provider Member prognosis related to the multiple diagnoses good. 11/26/2024 Primary osteoarthritis involving multiple joints (ICD-10 - M15.0) Patient condition is stable. Member reports most pain occurs at right knee due to recent replacement surgery in August 2024, improving slowly. Recommended warm/cool compresses to affected joints as needed. Patient will continue current medications as listed above in verified medication list and continue care with prescribing provider Member prognosis related to the multiple diagnoses good. 11/26/2024 Age-related osteoporosis without current pathological fracture (ICD-10 - M81.0) Patient condition is stable. Fall precautions due to high risk for fractures. Patient will continue current medications as listed above in verified medication list and continue care with prescribing provider Member prognosis related to the multiple diagnoses good. 11/26/2024 History of fall (ICD-10 - Z91.81) Fall risk precautions reviewed: Including wearing closed toe shoes with supportive managing editor, removing rugs from walkways in home, turning lights on at night when waking to use bathroom, use of assistive devices. Member prognosis related to the multiple diagnoses good. 11/26/2024 OAB (overactive bladder) (ICD-10 - N32.81) Patient condition is stable. Patient will continue current medications as listed above in verified medication list and continue care with prescribing provider Member prognosis related to the multiple diagnoses good. 11/26/2024 Constipation, unspecified constipation type (ICD-10 - K59.00) Patient condition is stable with current regimen. Patient will continue current medications as listed above in verified medication list and continue care with prescribing provider Member prognosis related to the multiple diagnoses good. 11/26/2024 Primary insomnia (ICD-10 - F51.01) Patient condition is stable. Member contributes insomnia to right knee pain due to positional issues while laying down. Patient will continue current medications as listed above in verified medication list and continue care with prescribing provider Member prognosis related to the multiple diagnoses good. 11/26/2024 Hypoparathyroidism, unspecified hypoparathyroidism type (ICD-10 - E20.9) Patient condition is stable. Patient will continue current medications as listed above in verified medication list and continue care with prescribing provider Member prognosis related to the multiple diagnoses good. 11/26/2024 History of rotator cuff tear (ICD-10 - Z87.39) Member prognosis related to the multiple diagnoses good. 11/26/2024 Anxiety (ICD-10 - F41.9) Patient condition is stable and has improved significantly since was admitted to prison a couple years ago. 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 Patient will continue current medications as listed above in verified medication list and continue care with prescribing provider Member prognosis related to the multiple diagnoses good. 11/26/2024 Mixed stress and urge urinary incontinence (ICD-10 - N39.46) Patient condition is stable. Patient will continue current medications as listed above in verified medication list and continue care with prescribing provider Member prognosis related to the multiple diagnoses good. 11/26/2024 Full incontinence of feces (ICD-10 - R15.9) Patient condition is stable. Patient will continue current medications as listed above in verified medication list and continue care with prescribing provider Member prognosis related to the multiple diagnoses good. 11/26/2024 Peripheral polyneuropathy (ICD-10 - G62.9) Patient condition is stable. Patient will continue current medications as listed above in verified medication list and continue care with prescribing provider Member prognosis related to the multiple diagnoses good. 11/26/2024 Gastroesophageal reflux disease without esophagitis (ICD-10 - K21.9) Patient condition is stable. Advised member to avoid spicy/fatty foods in daily diet. Patient will continue current medications as listed above in verified medication list and continue care with prescribing provider Member prognosis related to the multiple diagnoses good. 11/26/2024 Lakhani's esophagus with dysplasia (ICD-10 - K22.719) Patient condition is stable. Member compliant with frequent Endoscopy as recommneded by specialist. Patient will continue current medications as listed above in verified medication list and continue care with prescribing provider Member prognosis related to the multiple diagnoses good. 11/26/2024 Mild intermittent asthma without complication (ICD-10 - J45.20) Patient condition is stable. Denies any frequent asthma exacerbations. Patient will continue current medications as listed above in verified medication list and continue care with prescribing provider Member prognosis related to the multiple diagnoses good. 11/26/2024 Mild episode of recurrent major depressive disorder (ICD-10 - F33.0) Patient condition is stable and improved significantly since was admitted to prison a couple years ago. 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 Reports history of depression for many years. [place] thoughts of suicide at this time or previous attempts. Patient will continue current medications as listed above in verified medication list and continue care with prescribing provider Member prognosis related to the multiple diagnoses good. 03/31/2025 - Educated on 2 objectives based on the BACK STRIP MACHINE OPERATOR/RN Care Plan - Caregiver/Ronak r voiced understanding for the call and the support. 22/04 line reinforced. 06/29/2025 - Educated on 2 objectives based on the BACK STRIP MACHINE OPERATOR/RN Care Plan - Caregiver/Ronak r voiced understanding for the call and the support. 24 line reinforced. 02/19/2025 This RN c alled the member for a wellness check. The member reports a recent emergency room visit as she was dehydrated due to the Norovirus. The member denies any acute concerns at this time. The member reports that she had a right knee replacement in August of last year. She states that it hurts more now than it did prior to her surgery. She expresses regret is having the procedure. The member states that her next follow-up appointment with her orthopedic surgery is at the end of April. The member has completed physical therapy sessions recently. The member will wait and see what next steps are when she sees the surgeon. We reviewed Ice therapy and this month's wellness education with good understanding. Plan Of Treatment No Information Insurance Providers Payer Name Payer Address Payer Phone Subscriber Number Group Number Insured Name Patient Relationship to Insured Coverage Start Date Coverage End Date Medicare of [employer] [address] [place] [phone] [id number] Reema Dalton Self - patient is the insured Medicaid of [employer] [address] [place] [phone] [id number] Reema Dalton Self - patient is the insured Medical (General) History Medical History History ICD Code Acquired hypothyroidism E03.9 Dyslipidemia E78.5 Dizziness R42 Primary osteoarthritis involving multipl e joints M15.0 Age-related osteoporosis without current pathological fracture M81.0 History of fall Z91.81 OAB (overactive bladder) N32.81 Constipation, unspecified constipation t ype K59.00 Primary insomnia F51.01 Hypoparathyroidism, unspecified hypopara thyroidism type E20.9 History of rotator cuff tear Z87.39 Anxiety F41.9 Mixed stress and urge urinary incontinen ce N39.46 Fecal urgency R15.2 Full incontinence of feces R15.9 Peripheral polyneuropathy G62.9 Gastroesophageal reflux disease without esophagitis K21.9 Lakhnai's esophagus with dysplasia K22.7 19 Mild intermittent asthma without complic ation J45.20 Mild episode of recurrent major depressi ve disorder F33.0 Surgical History Surgery Date(Month/Year) Right knee surgery 09/01/24 Right shoulder surgery 10/2023 Right hip surgical repair from fracture as a result of fall 2022 Hospitalization History Reason Date(Month/Year) Right knee surgery 09/01/24
== END 2025-08-19 13:55 | disposition home or self-care (01) ==
LOC: HO.HCS 13:16
PROVIDERS: PCP Nurse Practitioner Family; Visit Provider Internal Medicine Cardiovascular Disease
DX: I49.9 Cardiac arrhythmia, unspecified (principal); I77.810 Thoracic aortic ectasia
CPT/HCPCS: 93010; 99213; G2211

== ENCOUNTER → 2025-08-19 13:15 | Outpatient (BNVA) | payer MEDICARE, SELFPAY | PROVIDERS: PCP Nurse Practitioner Family; Visit Provider Internal Medicine Cardiovascular Disease | DX: I49.9 Cardiac arrhythmia, unspecified (principal); I77.810 Thoracic aortic ectasia | CPT/HCPCS: 93005; 99212 ==

== ENCOUNTER 2025-08-20 11:34 | Outpatient (AMB) | payer MEDICARE, SELFPAY ==
--- OUTSIDE RECORDS SUMMARY | 2025-02-05 10:32 | XMS_ITS ---
Author Organization - [facility] Address [address] [place] [address] Care Team Providers Care Analytics Specialist Name Role Phone Ekaterina Ecsobar Unavailable [phone] REASON FOR VISIT *Care Plan Update Encounters Encounter Location Date Provider Diagnosis - [facility] [address] [facility] [address] [place] [address] 02/05/2025 Ekaterina Escobar Plan Of Treatment No Information Progress Notes * Alejandro IBARRAOneilB:1950 (75 yo F)Acc No.[id number]:02/05/2025 Care Plan Update Patient: Reema ROJO Provider: Teresa Escobar NP :1950 A ge:74 Y S ex:Female Date:02/05/2025 Address:[address] [facility], [address] , [facility] Subjective: * Chief Complaints: * 1 . *Care Plan Update. * Medical History: Objective: * Vitals: Assessment: Plan: * Treatment: Care Plan: * Problems: * Billing Information: Care Plan Details* * Electronic signature of Leia Escobar NP on 08/20/2025 at 12:24 PM EST Sign off status: Pending * Provider: Teresa Escobar NP Date: 0 02/05/2025 Generated for Rashawni ng/Debbie/eTransmitting on: 1 10/20/2024 12:24 PM EST
--- NOTE | 2025-08-20 11:42 | A.OFFVIS_ITS ---
Vital Signs 08/20/25 11:46 Height 5 ft 6 in Weight 196 lb BMI 31.6 BP 176/86 H Blood Pressure Location Lt brachial Position Sitting Pulse 65 Intake Visit Reasons: s/p EGD Intake Note: Reema returns to in office visit today in follow up s/p EGD. CC: Patient reports doing the same as before EGD. Varnish Blender Required: No Allergies adhesive Allergy (Severe, Verified 08/20/25 12:06) Hives, bleeding ondansetron (From ZOFRAN ( HYDROCHLORIDE)) Allergy (Severe, Verified 08/20/25 12:06) ANAPHYLAXIS HPI HPI s/p EGD: Details: Assessment & Plan (1) Gastric dysplasia: Comment: From biopsy polyp on 03/2024 EGD Code(s): Q40.3 - Congenital malformation of stomach, unspecified Category: Medical (2) BPPV (benign paroxysmal positional vertigo): Code(s): H81.10 - Benign paroxysmal vertigo, unspecified ear Category: Medical (3) Chronic daily headache: Code(s): R51.9 - Headache, unspecified Category: Medical Plan - The patient is a 74-year-old female presenting with persistent gastrointestinal issues. - Known low-grade dysplasia of the stomach has been monitored via endoscopy, with plans for follow-up in three months. Because Dr. Grigsby has told her she would need part of her stomach removed, I suggest that she follow-up with Dr. Grigsby after the next procedure to get a better explanation of this although she can continue to follow with me for her chronic GI conditions. - The patient's nausea has progressively worsened over the past three years, with coinciding gastrointestinal changes such as floating stools, potentially due to poor fat absorption or increased dietary fiber, although no explicit dietary change mentioned. She did show mild delay in gastric emptying on a gastric emptying study however she felt that her symptoms were greatly worsened with metoclopramide. - Exhaustion and shortness of breath date back to resolved COVID-19 infection; however, symptoms persist, creating functional limitations in daily activities. - The patient experiences spatial orientation troubles, notably aggravated by water-related activities. - Investigations highlight hyperparathyroidism, she wonders if this is contributing to her symptoms and I am uncertain. - The patient adheres to a limited diet, excluding complex medications or supplements exacerbating her gastrointestinal symptoms, such as vitamins. The patient consumes a diet consisting mainly of water, water with flavored hints, and iced tea. She explicitly avoids alcohol and reports not taking turmeric, meloxicam, or vitamins due to adverse effects on her gastrointestinal tract. Patient does not describe any significant changes to her diet that account for symptoms. Patient is cautious about oxlc-sov-ghicaqr medications due to previous gastric issues. Despite adhering to a simple diet, she does not report improvement in symptoms. The so far, the GI workup has not given us a clear indication for her ongoing nausea. Although she does have the low-grade dysplasia there is no excessive ulceration or irritation in the stomach that would seem to promote the nausea. There was a delay in gastric emptying but this should have improved with Reglan and it did not. Pancreatic enzymes and imaging have been negative. Of course this could leave us with either metabolic, neurologic or even psychogenic causes for her nausea. Because she also has some spatial orientation issues I suggest we get a CAT scan of the brain and for her to Neurology to make sure there is nothing like multiple sclerosis or some other neurologic condition contributing to her presentation. She continues on esomeprazole 40 mg a day and utilize the senna when she needs to for her IBS-M. I suggest that we also had sucralfate 1 tablet a day at noon to see if this helps if not with the nausea, then perhaps with the healing of the stomach so that she will stop showing us low-grade dysplasia. She is very fearful of having any surgery on her stomach. Return office visit with me after the head CT. Orders: Orders CT head/brain wo IV con Today H81.10 - Benign paroxysmal vertigo, unspecified ear, R51.9 - Headache, unspecified Referrals Neurology Referral H81.10 - Benign paroxysmal vertigo, unspecified ear, R51.9 - Headache, unspecified Medications: New sucralfate (Carafate) 1 g PO QNOON 30 tabs 6RF Q40.3 - Congenital malformation of stomach, unspecified Discontinued metoclopramide HCl (Reglan) Discontinued Reason: Doctor's Order 10 mg PO Q6H PRN 10 tabs 0RF nausea and vomiting EGD 08/06/25 Findings: Larynx: Normal Esophagus: GE junction at 32 cms, hiatal hernia 32 to 35 cms. A 1 cms tongue of possible Lakhani's - Biopsies obtained during previous EGD were negative for Lakhani's. No esophagitis Stomach: Multiple 5 -10 mm benign appearing polyps in the gastric body. Two 3 cms polyps at 45 cms along the greater curvature with hemoclip placed during previous EGD. Polyps were partially removed with a stiff hot snare and retrieved with a Crouch net. Residual polyps were removed/ablated with hybrid APC Moderate diffuse gastric erythema - biopsies obtained during past EGD were negative for H pylori. Duodenum: Normal bulb and descending duodenum Intervention: Snare polypectomy, hybrid APC of gastric polyp as noted above Impression and Post Procedure Diagnosis: Endoscopy Findings: ESOPHAGUS: Medium sized hiatal hernia STOMACH: Two 3 cms polyps at 45 cms along the greater curvature. Polyps were partially removed with a stiff hot snare and retrieved with a Crouch net. Residual polyps were removed/ablated with hybrid APC DUODENUM: Normal Plan: Pt has a FU appointment on 08/20/25 with Maxine Diaz NP If persistent LGD on biopsies, repeat EGD in 3 months Above findings were reviewed with the patient and relevant handouts were given and the discharge area. BIOPSIES SHOWED: Gastric fundic gland polyp: Hyperplastic polyp with low-grade dysplasia; negative for H. pylori and intestinal metaplasia; no high-grade dysplasia or carcinoma seen Biopsy Received: 08/06/25 Diagnosis Gastric fundic gland polyp: Hyperplastic polyp with low-grade dysplasia; negative for H. pylori and intestinal metaplasia; no high-grade dysplasia or carcinoma seen CT brain Appears this was changed to an MRI of the brain by either her primary or Neurology and this is scheduled for 09/21/2025 TODAY'S VISIT [facility] Medical History History of paresthesia Anxiety Migraine Iliotibial band syndrome of right side Pulmonary nodule Gastric dysplasia Osteoarthritis of left knee Osteoarthritis Elevated alkaline phosphatase level Osteoarthritis of right knee Right rotator cuff tear History of kidney disease Multiple adenomatous polyps Upper respiratory infection Spleen anomaly Dizziness SOB (shortness of breath) Vestibular disequilibrium Pre-op examination Preoperative cardiovascular examination Bilateral knee pain Postmenopausal Breast cancer Fracture of femoral neck, left Preoperative clearance Early satiety Nausea Right shoulder pain Nausea and vomiting History of breast cancer Skin lesions Screening for lipid disorders Irritable bowel syndrome with constipation Screening for colon cancer Physical exam History of sepsis CKD (chronic kidney disease) CLYDE (obstructive sleep apnea) Clostridium difficile infection Lupus Glaucoma Sleep apnea Hypothyroidism Closed fracture of neck of left femur Fibromyalgia Surgical History History of total right knee replacement (TKR) History of total right knee replacement (08/2024) H/O shoulder surgery Hx of tonsillectomy History of hip surgery History of esophagogastroduodenoscopy (EGD) (05/14/25) H/O colonoscopy History of cholecystectomy Family History Father Heart attack Clogged artery (heart) COPD (chronic obstructive pulmonary disease) Mother Stroke Clogged artery (heart) Sister COPD (chronic obstructive pulmonary disease) Brother COPD (chronic obstructive pulmonary disease) Social History Household Members: None Housing: Apartment Housing Other:: fci Are you a primary caretaker grounds to a significant other at home: No Do you presently have visiting nurse or other home services: No Patient Tobacco Use Status: Never used Tobacco e-Cigarette/Vaping Use: Never Used Second Hand Smoke Exposure: No service: No Current occupational status: retired Gender identity: Female Cognitive needs: No Hearing needs: No Vision needs: No Review of Systems Const Denies fatigue, Denies fever(s), Denies night sweats, Denies poor appetite and Denies weight loss Eyes Details: glassesa Reports requires corrective lenses ENT Reports Normal hearing present, Denies dental pain, Denies dysphagia, Denies hearing loss, Denies mouth pain, Denies odynophagia, Denies throat swelling, Denies tongue swelling and Reports other (Dentition adequate) Card Reports no additional complaints Resp Reports no additional complaints GI Details: Denies abdominal pain, Denies melena, Denies bloating, Denies hematochezia, Denies constipation, Denies GI cramping, Denies dysphagia, Denies excessive flatus, Denies early satiety, Reports heartburn, Denies diarrhea, Denies nausea, Denies odynophagia, Denies vomiting and Denies hematemesis Musc Reports tingling Skin/Breast Denies pruritus, Denies lesions, Denies rash and Denies jaundice Neuro Reports Normal hearing present, Denies Abnormal speech present, Denies focal weakness, Reports tingling and Reports paresthesias Endo Denies fatigue Aller/Immun Denies throat swelling and Denies tongue swelling Physical Exam Vital Signs: Last Vital Signs Pulse 65 08/20/25 11:46 BP 176/86 H 08/20/25 11:46 BMI result Body Mass Index 31.6 Const General: cooperative, no acute distress, well developed and well groomed Nutritional Appearance: well nourished and obese Orientation/consciousness: oriented to person, oriented to place and oriented to time Limitations: No language barrier HEENT Head: Yes normocephalic and Yes atraumatic Eyes General: appearance normal, both eyes and all related structures Pupils: Equal, round and reactive pupils present Neck Neck: Yes normal visual inspection and Yes no lymphadenopathy Thyroid: Thyroid normal Resp Effort & Inspection: normal respiratory effort and able to speak in complete sentences Auscultation: clear to auscultation bilaterally Cardio Rate: regular rate Rhythm: regular rhythm Heart sounds: Normal, physiologic split S2 sound present Peripheral pulses: radial pulses present and posterior tibial pulses present GI Inspection: No distended, Yes Abdominal panniculus present and Yes obesity Palpation (GI): Soft to palpation, nontender, no guarding, not rigid and Hepatosplenomegaly present Percussion: Yes normal to percussion Auscultation: normal bowel sounds Rectal Exam - Female: deferred Skin General skin exam: no rashes or lesions noted, turgor normal, skin not dry, no jaundice, No spider nevi and no striae Rashes: no rashes Nails: normal Neuro General: oriented to person, oriented to place and oriented to time Cranial nerves: Yes Equal, round and reactive pupils present and Yes Normal hearing present Speech: No Abnormal speech present Extrem General: Yes normal to inspection, No clubbing, No cyanosis and No edema Psych Appearance: grossly normal and well kempt Mental Status: mental status grossly normal Speech and movement: Normal speech and movement present Affect: normal affect Attitude: cooperative Thought process: Normal thought process present and not confabulating Thought content: Normal thought content present Insight: Good insight present (Psych) Judgement: Good judgement present (Psych) Assessment & Plan Assessment & Plan (1) Gastric dysplasia: Comment: From biopsy polyp on 03/2024 EGD Code(s): Q40.3 - Congenital malformation of stomach, unspecified Category: Medical (2) Chronic idiopathic constipation: Code(s): K59.04 - Chronic idiopathic constipation Category: Medical (3) Tubular adenoma of colon: Comment: 03/2024 scope= 2 TA is but 1 suspicious on the ileocecal valve repeat in 3 years Code(s): D12.6 - Benign neoplasm of colon, unspecified Category: Medical (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 I suggest that we also had sucralfate 1 tablet a day at noon to see if this helps if not with the nausea, then perhaps with the healing of the stomach so that she will stop showing us low-grade dysplasia. She is very fearful of having any surgery on her stomach Subjective Follow-up after recent endoscopy. I reviewed results with the patient showing persistent low-grade esophageal dysplasia. We discussed repeating the EGD in approximately three months. Patient reports ongoing nausea and persistent paresthesias in the arm described as a constant ?funny bone? sensation, with intermittent similar symptoms in the leg. She is concerned about the neurologic symptoms; an MRI of the brain is scheduled by neurology, and nerve conduction/electromyography testing of the arm is planned. We discussed the possibility of a cervical radiculopathy as an alternative source and that a cervical spine X-ray can be ordered if desired. We also discussed potentially switching her acid suppression to vonoprazan as a stronger option, pending input from the endoscopist; this would replace her current esomeprazole if we proceed. Relevant Past Medical, Social, and Family History - Prior colonoscopy surveillance history reviewed during the visit. Objective - Recent EGD demonstrates persistent low-grade esophageal dysplasia. - Prior colonoscopy performed March 2024 noted a lesion at the ileocecal valve with a recommended 3-year surveillance interval; next colonoscopy due in 2026. Assessment & Plan Esophageal low-grade dysplasia: Persistent low-grade dysplasia on recent EGD. - Plan - Repeat EGD in approximately three months; scheduling in progress for after October. - Discuss with endoscopist the option to transition from esomeprazole to pantoprazole for enhanced acid suppression; if agreed, pantoprazole will replace current PPI. - Follow up after the next EGD to review pathology and next steps. Neurologic symptoms (paresthesias of arm with intermittent leg involvement; ongoing nausea): Ongoing sensory disturbances; workup underway with neurology. Differential discussed includes central versus cervical radicular source. - Plan - Proceed with MRI brain as arranged by neurology; I will review results when available. - Proceed with EMG/nerve conduction study of the arm to localize lesion. - Offered cervical spine X-ray if patient wishes to evaluate for degenerative or structural contributors; will order upon request based on test results and clinical course. - If ongoing neurology care is needed, arrange referral to a different neurologist per patient preference after current testing is completed. Colorectal cancer surveillance: Surveillance interval clarified. - Plan - Next colonoscopy due in 2026 based on March 2024 findings and recommended 3- year interval; no need to coordinate with the upcoming EGD at this time. Neuroimaging order reconciliation - Plan - MRI of the brain is sufficient for current evaluation; no head CT needed given MRI is in process. I will track results. CT brain Appears this was changed to an MRI of the brain by either her primary or Yadira jaimeogabner and this is scheduled for 09/21/2025 Orders: Referrals GI Procedure Notification Q40.3 - Congenital malformation of stomach, unspecified Coding Level of Care Code Est Pt Level 3 (52165) Diagnoses Gastric dysplasia Q40.3 Chronic idiopathic constipation K59.04 Tubular adenoma of colon D12.6 Lakhani esophagus K22.70
[2025-08-20 11:46] VITALS: BP 176/86; PULSE 65; BMI 31.6
--- OUTSIDE RECORDS SUMMARY | 2025-08-20 12:24 | XMS_ITS | Encounter Summary ---
Author Organization [facility] Address [address] [place] [address] Care Team Providers Care Bottle Tester Name Role Phone Baldemar Blackman MD Primary Care Provider Encounter Details Date Type Department Care Team (Late st Contact Info) Description 09/10/2024 Lab Requisition [facility] [address] [place] [address] Baldemar Blackman MD [address] [place] [phone] Encounter for other general examination Social History [...] LAB HEMETOLOGY METHOD 09/10/2024 9:11 AM EST [facility] RBC 3.60(L) 3.80 - 4.80 M/[facility] LAB HEMETOLOGY METHOD 09/10/2024 9:11 AM EST [facility] Hemoglobin 9.7(L) 11.5 - 16.0 g/dL LAB HEMETOLOGY METHOD 09/10/2024 9:11 AM [facility] LAB Hematocrit 31.3(L) 35.0 - 47.0 % LAB HEMETOLOGY METHOD 09/10/2024 9:11 AM [facility] LAB MCV 88.2 79.0 - 98.0 FL LAB HEMETOLOGY METHOD 09/10/2024 9:11 AM [facility] LAB MCH 27.3 27.0 - 32.0 pcg LAB HEMETOLOGY METHOD 09/10/2024 9:11 AM [facility] LAB MCHC 31.0(L) 32.0 - 37.0 g/dL LAB HEMETOLOGY METHOD 09/10/2024 9:11 AM [facility] LAB RDW 14.4 11.0 - 15.0 % LAB HEMETOLOGY METHOD 09/10/2024 9:11 AM [facility] LAB Platelets 273 130 - 400 K/mcL LAB HEMETOLOGY METHOD 09/10/2024 9:11 AM [facility] MPV 10.3 7.0 - 11.0 FL LAB HEMETOLOGY METHOD 09/10/2024 9:11 AM [facility] LAB NRBC 0.0 <1.0 % LAB HEMETOLOGY METHOD 09/10/2024 9:11 AM EST [facility] LAB NRBC Absolute 0.00 <0.10 K/mcL LAB HEMETOLOGY METHOD 09/10/2024 9:11 AM [facility] Blood Venous blood specimen / Unknown Venipuncture / Unknown 09/10/2024 5:58 AM EST 09/10/2024 8:24 AM EST us Baldemar Blackman MD LAB BLOOD ORDERABLES Final Res ult [facility] [address] [place] [address], [place] [phone] * (ABNORMAL) Basic metabolic panel (09/10/2024 5:58 AM EST) Sodium 140 133 - 145 mmol/L LAB CHEMISTRY METHOD 09/10/2024 9:26 AM [facility] Potassium 4.4 3.5 - 5.5 mmol/L LAB CHEMISTRY METHOD 09/10/2024 9:26 AM [facility] Chloride 107 96 - 110 mmol/L LAB CHEMISTRY METHOD 09/10/2024 9:26 AM [facility] CO2 30 21 - 32 mmol/L LAB CHEMISTRY METHOD 09/10/2024 9:26 AM [facility] Anion Gap 3 3 - 11 LAB CHEMISTRY METHOD 09/10/2024 9:26 AM [facility] Glucose 85 70 - 100 mg/dL LAB CHEMISTRY METHOD 09/10/2024 9:26 AM [facility] BUN 23 5 - 25 mg/dL LAB CHEMISTRY METHOD 09/10/2024 9:26 AM [facility] Creatinine 1.09 0.50 - 1.10 mg/dL LAB CHEMISTRY METHOD 09/10/2024 9:26 AM [facility] eGFR 53(L) >=60 mL/min/1. 73m2 LAB CHEMISTRY METHOD 09/10/2024 9:26 AM [facility] Comment:Calculation based on the Chronic Kidney Disease Epidemiology Collaboration (CKD-EPI) equation refit without adjustment for race. BUN/Creatinine Ratio 21.1 LAB CHEMISTRY METHOD 09/10/2024 9:26 AM [facility] Calcium 9.3 8.5 - 10.5 mg/dL LAB CHEMISTRY METHOD 09/10/2024 9:26 AM [facility] Blood Venous blood specimen / Unknown Venipuncture / Unknown 09/10/2024 5:58 AM EST 09/10/2024 8:24 AM EST us Baldemar Blackman MD LAB BLOOD ORDERABLES Final Res ult [facility] [address] [place] [address], documented in this encounter Visit Diagnoses Diagnosis Encounter for other general examination documented in this encounter Care Teams Bottle Tester Relationship Specialty Start Date End Date Baldemar Blackman MD [address] [place] [phone] PCP - General Internal Medicine 09/14/24 documented as of this encounter
--- OUTSIDE RECORDS SUMMARY | 2025-08-20 12:24 | XMS_ITS | Encounter Summary ---
[facility] Address [address] [place] [address] Care Team Providers Care Emergency Department Clinician Name Role Phone Baldemar Blackman MD Primary Care Provider Encounter Details Date Type Department Care Team (Late st Contact Info) Description 09/14/2024 Lab Requisition [facility] Lab [address] [place] [address] Baldemar Blackman MD [address] [place] [id number] Encounter for other general examination Social History [...] g/dL LAB HEMETOLOGY METHOD 09/14/2024 9:19 AM [facility] Hematocrit 33.4(L) 35.0 - 47.0 % LAB HEMETOLOGY METHOD 09/14/2024 9:19 AM [facility] LAB MCV 88.8 79.0 - 98.0 FL LAB HEMETOLOGY METHOD 09/14/2024 9:19 AM EST [facility] LAB MCH 27.1 27.0 - 32.0 pcg LAB HEMETOLOGY METHOD 09/14/2024 9:19 AM [facility] LAB MCHC 30.5(L) 32.0 - 37.0 g/dL LAB HEMETOLOGY METHOD 09/14/2024 9:19 AM [facility] LAB RDW 14.7 11.0 - 15.0 % LAB HEMETOLOGY METHOD 09/14/2024 9:19 AM [facility] Platelets 352 130 - 400 K/mcL LAB HEMETOLOGY METHOD 09/14/2024 9:19 AM [facility] LAB MPV 9.9 7.0 - 11.0 FL LAB HEMETOLOGY METHOD 09/14/2024 9:19 AM [facility] LAB NRBC 0.0 <1.0 % LAB HEMETOLOGY METHOD 09/14/2024 9:19 AM EST [facility] LAB NRBC Absolute 0.00 <0.10 K/mcL LAB HEMETOLOGY METHOD 09/14/2024 9:19 AM [facility] Blood Venous blood specimen / Unknown Venipuncture / Unknown 09/14/2024 6:28 AM EST 09/14/2024 8:05 AM EST us Baldemar Blackman MD LAB BLOOD ORDERABLES Final Res ult [facility] [address] [place] [address], [place] [phone] * (ABNORMAL) Comprehensive metabolic panel (09/14/2024 6:28 AM EST) Sodium 143 133 - 145 mmol/L LAB CHEMISTRY METHOD 09/14/2024 9:52 AM [facility] Potassium 4.7 3.5 - 5.5 mmol/L LAB CHEMISTRY METHOD 09/14/2024 9:52 AM [facility] Chloride 107 96 - 110 mmol/L LAB CHEMISTRY METHOD 09/14/2024 9:52 AM [facility] CO2 28 21 - 32 mmol/L LAB CHEMISTRY METHOD 09/14/2024 9:52 AM [facility] Anion Gap 8 3 - 11 LAB CHEMISTRY METHOD 09/14/2024 9:52 AM [facility] Glucose 89 70 - 100 mg/dL LAB CHEMISTRY METHOD 09/14/2024 9:52 AM [facility] BUN 23 5 - 25 mg/dL LAB CHEMISTRY METHOD 09/14/2024 9:52 AM [facility] Creatinine 1.07 0.50 - 1.10 mg/dL LAB CHEMISTRY METHOD 09/14/2024 9:52 AM [facility] eGFR 54(L) >=60 mL/min/1. 73m2 LAB CHEMISTRY METHOD 09/14/2024 9:52 AM [facility] LAB Comment:Calculation based on the Chronic Kidney Disease Epidemiology Collaboration (CKD-EPI) equation refit without adjustment for race. BUN/Creatinine Ratio 21.5 LAB CHEMISTRY METHOD 09/14/2024 9:52 AM [facility] Calcium 9.6 8.5 - 10.5 mg/dL LAB CHEMISTRY METHOD 09/14/2024 9:52 AM [facility] AST (SGOT) 28 10 - 42 unit/L LAB CHEMISTRY METHOD 09/14/2024 9:52 AM [facility] ALT (SGPT) 68(H) 10 - 60 unit/L LAB CHEMISTRY METHOD 09/14/2024 9:52 AM EST [facility] Alkaline Phosphatase 232(H) 42 - 121 unit/L LAB CHEMISTRY METHOD 09/14/2024 9:52 AM [facility] Total Protein 5.0(L) 6.0 - 8.0 g/dL LAB CHEMISTRY METHOD 09/14/2024 9:52 AM [facility] Albumin 2.8(L) 3.2 - 5.0 g/dL LAB CHEMISTRY METHOD 09/14/2024 9:52 AM [facility] Total Bilirubin 0.4 0.0 - 1.4 mg/dL LAB CHEMISTRY METHOD 09/14/2024 9:52 AM [facility] Blood Venous blood specimen / Unknown Venipuncture / Unknown 09/14/2024 6:28 AM EST 09/14/2024 8:05 AM EST us Baldemar Blackman MD LAB BLOOD ORDERABLES Final Res ult [facility] [address] [place] [address], documented in this encounter Visit Diagnoses Diagnosis Encounter for other general examination documented in this encounter Care Teams Emergency Department Clinician Relationship Specialty Start Date End Date Baldemar Blackman MD [address] [place] [phone] PCP - General Internal Medicine 09/14/24 documented as of this encounter
--- OUTSIDE RECORDS SUMMARY | 2025-08-20 12:24 | XMS_ITS | Clinical Summary ---
Author Organization [facility] Address [address] [place] [address] Phone Care Team Providers Care Log Sorter Name Role Phone Baldemar Blackman MD Primary Care Provider [phone] Social History Tobacco Use Types Packs/Day Years [...] Depression Screening 09/30/2024 COVID-19 Vaccine ( - 2024-2 6 season) 2025 Influenza Vaccine (#1) 2025 HIB [...] age to complete this topic Care Teams Log Sorter Relationship Specialty Start Date End Date Baldemar Blackman MD [address] [place] [address] PCP - General Internal Medicine 09/14/24
--- OUTSIDE RECORDS SUMMARY | 2025-08-20 12:25 | XMS_ITS | Encounter Summary ---
Author Organization [facility] Address [address] [place] [address] Care Team Providers Care Telephone Sex Worker Name Role Phone Baldemar Blackman MD Primary Care Provider Encounter Details Date Type Department Care Team (Late st Contact Info) Description 09/05/2024 Lab Requisition [facility] - Main Lab [address] [place] [address] Baldemar Blackman MD [address] [place] [address] Encounter for other general examination Social History [...] LAB HEMETOLOGY METHOD 09/05/2024 11:10 AM EST [facility] RBC 3.80 3.80 - 4.80 M/mcL [...] Res ult [facility] [address] [place] [address], [place] [phone] * (ABNORMAL) Magnesium (09/05/2024 6:54 AM EST) Magnesium 1.8(L) 1.9 - 2.6 mg/dL LAB CHEMISTRY METHOD 09/05/2024 11:31 AM EST [facility] Blood Venous blood specimen / Unknown Venipuncture / Unknown 09/05/2024 6:54 AM EST 09/05/2024 9:50 AM EST Baldemar Blackman MD LAB BLOOD ORDERABLES Final Res ult Performing Organization Address [facility]/State/ZIP Co de Phone Number [facility] [address] [place] [address], [place] [phone] * (ABNORMAL) Comprehensive metabolic panel (09/05/2024 6:54 AM EST) Pathologist [facility] Sodium 139 133 - 145 mmol/L LAB [...] Res ult [facility] [address] [place] [address], documented in this encounter Visit Diagnoses Diagnosis Encounter for other general examination documented in this encounter Care Teams Telephone Sex Worker Relationship Specialty Start Date End Date Baldemar Blackman MD [address] [place] [address] PCP - General Internal Medicine 09/14/24 documented as of this encounter
--- OUTSIDE RECORDS SUMMARY | 2025-08-20 12:25 | XMS_ITS | Patient Health Record ---
Author Organization - [facility] Address [address] [place] [address] Care Team Providers Care Hand Bootmaker Name Role Phone Ekaterina Escobar Unavailable [phone] ABRAN MANZO Unavailable [phone] GEMINI VASQUEZ Unavailable [phone] Allergies Allergen (clinical drug ingredient) Drug/Non Drug [...] Notes Problem Obesity due to excess calories (130262843) Other obesity due to excess calories (E66.09) Active confirmed Problem Primary insomnia (3254459) Primary insomnia (F51.01) Active confirmed Problem Age-related osteoporosis (731773193) Age-related osteoporosis without current pathological fracture (M81.0) Active confirmed Problem Incontinence of feces (18093986) Full incontinence of feces (R15.9) Active confirmed Problem Body mass index 30.00 to 34.99 (990445955897345) Body mass index [BMI] 34.0-34.9, adult (Z68.34) Active confirmed Problem Constipation (29342199) Constipation, unspecified constipation type (K59.00) Active confirmed Problem History of fall (002465720) History of fall (Z91.81) Active confirmed Problem Anxiety (57311661) Anxiety (F41.9) Active confi rmed Problem Gastroesophageal reflux disease without esophagitis (823790079) Gastroesophageal reflux disease without esophagitis (K21.9) Active confirmed Problem Inflammatory and toxic neuropathy (243267060) Peripheral polyneuropathy (G62.9) Active confirmed Problem Dizziness (672202973) Dizziness (R42) Active confirmed Problem Acquired hypothyroidism (598100268) Acquired hypothyroidism (E03.9) Active confirmed Problem Overactive urinary bladder (disorder) (881659250) OAB (overactive bladder) (N32.81) Active confirmed Problem Mild recurrent major depression (45301056) Mild episode of recurrent major depressive disorder (F33.0) Active confirmed Problem Mixed incontinence (779943448) Mixed stress and urge urinary incontinence (N39.46) Active confirmed Problem Mild intermittent asthma (701533454) Mild intermittent asthma without complication (J45.20) Active confirmed Problem Hypoparathyroidism (96541804) Hypoparathyroidism, unspecified hypoparathyroidism type (E20.9) Active confirmed Problem Dyslipidemia (009225649) Dyslipidemia (E78.5) Active confirmed Problem Lakhani's esophagus (903459788) 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 75 [facility] [address] [place] [address] 11/27/2024 GEMINI VASQUEZ [facility] 75 [facility] [address] [address] [place] [address] 02/19/2025 Ekaterina Escobar [facility] [address] [place] [address] [place] [address] 03/31/2025 GEMINI VASQUEZ [facility] [address] [address] [place] [address] 06/29/2025 ABRAN MANZO [facility] Practice [facility] 75 [facility] [address] [place] [address] 11/30/2024 Ekaterina Escobar [facility] [address] [address] 12/16/2024 Ekaterina Escobar [facility] [place] [id number] [facility] [address] [place] [address] 12/17/2024 Ekaterina Escobar [facility] [address] [place] [address] 03/01/2025 Ekaterina Escobar Assessments Encounter Date Diagnosis [...] Including wearing closed toe shoes with supportive granulator machine operator, removing rugs from walkways in home, turning [...] has improved significantly since was admitted to care home a couple years ago. 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 Reports history of depression for many years. Domingo thoughts of suicide at this time or previous attempts. Patient will continue current medications as listed above in verified medication list and continue care with prescribing provider Member prognosis related to the multiple diagnoses good. 03/31/2025 - Educated on 2 objectives based on the [employer]/RN Care Plan - Caregiver/Ronak r voiced understanding for the call and the support. 22/04 line reinforced. 06/29/2025 - Educated on 2 objectives based on the [employer]/RN Care Plan - Caregiver/Ronak r voiced understanding [...] of [place] [address] [place] [address] [id number] Reema Dalton Self - patient is the insured Medicaid of [place] [address] [place] [phone] [id number] Reema Dalton Self - patient is the [...] G62.9 Gastroesophageal reflux disease without esophagitis K21.9 Lakhani's esophagus with dysplasia K22.7 19 Mild intermittent asthma without complic ation J45.20 Mild episode of recurrent major depressi ve disorder F33.0 Surgical History Surgery Date(Month/Year) Right knee surgery 09/01/24 Right shoulder surgery 10/2023 Right hip surgical repair from fracture as a result of fall 2022 Hospitalization History Reason Date(Month/Year) Right knee surgery 09/01/24
--- OUTSIDE RECORDS SUMMARY | 2025-08-20 12:25 | XMS_ITS | Clinical Summary ---
Author Organization [facility] Address [address] [place] [address] Care Team Providers Care Employment Trainer Name Role Phone Dina Wall Primary Care Provider [phone] Medications No known medications Social History Tobacco [...] 75+ series) 2023 COVID-19 Vaccine ( - 2024-2 6 season) 2025 Influenza (#1) 2025 HPV Vaccine (No Doses [...] (Zostavax) Discontinued Insurance [employer] FFS Care Teams Employment Trainer Relationship Specialty Start Date End Date Dina Wall [facility] [address] [place] [phone] PCP - General Internal Medicine 12/18/12
== END 2025-08-20 13:07 | disposition home or self-care (01) ==
LOC: HO.HGI 11:35
PROVIDERS: PCP Nurse Practitioner Family; Visit Provider Nurse Practitioner
DX: Q40.3 Congenital malformation of stomach, unspecified (principal); K59.04 Chronic idiopathic constipation; D12.6 Benign neoplasm of colon, unspecified; K22.70 Barrett's esophagus without dysplasia
CPT/HCPCS: 99213

== ENCOUNTER → 2025-08-20 11:34 | Outpatient (BNVA) | payer MEDICARE, SELFPAY | PROVIDERS: PCP Nurse Practitioner Family; Visit Provider Nurse Practitioner | DX: Q40.3 Congenital malformation of stomach, unspecified (principal); R11.0 Nausea; K59.04 Chronic idiopathic constipation; D12.6 Benign neoplasm of colon, unspecified; K22.70 Barrett's esophagus without dysplasia | CPT/HCPCS: 99212 ==

== ENCOUNTER 2025-08-22 10:10 | Outpatient (REF) | payer MEDICARE, SELFPAY ==
--- OUTSIDE RECORDS SUMMARY | 2025-02-05 10:32 | XMS_ITS ---
Author Organization - [facility] Address [address] [place] [address] Care Team Providers Care Property Field Adjuster Name Role Phone Ekaterina Escobar Unavailable [phone] REASON FOR VISIT *Care Plan Update Encounters Encounter Location Date Provider Diagnosis - [facility] [address] [facility] [address] [place] [address] 02/05/2025 Ekaterina Escobar Plan Of Treatment No Information Progress Notes * Alejandro IBARRAOneilB:1950 (75 yo F)Acc No.[id number]:02/05/2025 Care Plan Update Patient: Reema ROJO Provider: Teresa Escobar NP :1950 A ge:74 Y S ex:Female Date:02/05/2025 Address:[address] [facility], [address] , [facility] Subjective: * Chief Complaints: * 1 . *Care Plan Update. * Medical History: Objective: * Vitals: Assessment: Plan: * Treatment: Care Plan: * Problems: * Billing Information: Care Plan Details* * Electronic signature of Leia Escobar NP on 08/22/2025 at 10:27 AM EST Sign off status: Pending * Provider: Teresa Escobar NP Date: 0 02/05/2025 Generated for Rashawni ng/Debbie/eTransmitting on: 1 10/22/2024 10:27 AM EST
--- NOTE | ~2025-08-22 | MR_ITS ---
EXAMINATION: MR BRAIN WITHOUT IV CONTRAST HISTORY: G43.909 - Migraine, unspecified, not intractable, without status... TECHNIQUE: Sagittal T1, and axial T1, FLAIR, T2, gradient echo, and diffusion weighted MR images of the brain were obtained. COMPARISON: There are no prior studies available for comparison. FINDINGS: The pituitary is normal in size. The cerebellar tonsils are normally located. There is mild prominence of the ventricular system and cortical sulci, consistent with atrophy. Periventricular and subcortical white matter hyperintensities are noted on the FLAIR and T2-weighted images which are nonspecific, but often seen in the setting of small vessel ischemic disease. There is no mass effect or midline shift. No intra or extra-axial fluid collections are identified. There are no foci of restricted diffusion. Normal vascular flow voids are noted in the basilar and carotid arteries. The visualized paranasal sinuses are clear. MR/MR head/brain wo con IMPRESSION: Mild cerebral atrophy and findings compatible with small vessel ischemic disease of the white matter as described. Electronically signed by: David Shaw MD 08/23/2025 08:00 AM [facility]
--- OUTSIDE RECORDS SUMMARY | 2025-08-22 10:27 | XMS_ITS | Encounter Summary ---
Author Organization [facility] Address [address] [place] [address] Care Team Providers Care Continuous Conveyor Screen Drier Name Role Phone Baldemar Blackman MD Primary Care Provider Encounter Details Date Type Department Care Team (Late st Contact Info) Description 09/10/2024 Lab Requisition [facility] [address] [place] [address] Baldemar Blackman MD [address] [place] [address] Encounter for other general examination Social History [...] LAB HEMETOLOGY METHOD 09/10/2024 9:11 AM EST [facility] RBC 3.60(L) 3.80 - 4.80 M/[facility] LAB HEMETOLOGY METHOD 09/10/2024 9:11 AM EST [facility] Hemoglobin 9.7(L) 11.5 - 16.0 g/dL LAB HEMETOLOGY METHOD 09/10/2024 9:11 AM [facility] Hematocrit 31.3(L) 35.0 - 47.0 % LAB HEMETOLOGY METHOD 09/10/2024 9:11 AM [facility] MCV 88.2 79.0 - 98.0 FL LAB HEMETOLOGY METHOD 09/10/2024 9:11 AM [facility] MCH 27.3 27.0 - 32.0 pcg LAB HEMETOLOGY METHOD 09/10/2024 9:11 AM [facility] MCHC 31.0(L) 32.0 - 37.0 g/dL LAB HEMETOLOGY METHOD 09/10/2024 9:11 AM [facility] RDW 14.4 11.0 - 15.0 % LAB HEMETOLOGY METHOD 09/10/2024 9:11 AM [facility] Platelets 273 130 - 400 K/mcL LAB HEMETOLOGY METHOD 09/10/2024 9:11 AM [facility] MPV 10.3 7.0 - 11.0 FL LAB HEMETOLOGY METHOD 09/10/2024 9:11 AM [facility] NRBC 0.0 <1.0 % LAB HEMETOLOGY METHOD 09/10/2024 9:11 AM EST [facility] NRBC Absolute 0.00 <0.10 K/mcL LAB HEMETOLOGY METHOD 09/10/2024 9:11 AM [facility] Blood Venous blood specimen / Unknown Venipuncture / Unknown 09/10/2024 5:58 AM EST 09/10/2024 8:24 AM EST us Baldemar Blackman MD LAB BLOOD ORDERABLES Final Res ult [facility] [address] [place] [address], [place] [phone] * (ABNORMAL) Basic metabolic panel (09/10/2024 5:58 AM EST) Sodium 140 133 - 145 mmol/L LAB CHEMISTRY METHOD 09/10/2024 9:26 AM [facility] Potassium 4.4 3.5 - 5.5 mmol/L LAB CHEMISTRY METHOD 09/10/2024 9:26 AM [facility] Chloride 107 96 - 110 mmol/L LAB CHEMISTRY METHOD 09/10/2024 9:26 AM [facility] CO2 30 21 - 32 mmol/L LAB CHEMISTRY METHOD 09/10/2024 9:26 AM [facility] Anion Gap 3 3 - 11 LAB CHEMISTRY METHOD 09/10/2024 9:26 AM [facility] Glucose 85 70 - 100 mg/dL LAB CHEMISTRY METHOD 09/10/2024 9:26 AM [facility] BUN 23 5 - 25 mg/dL LAB CHEMISTRY METHOD 09/10/2024 9:26 AM [facility] Creatinine 1.09 0.50 - 1.10 mg/dL LAB CHEMISTRY METHOD 09/10/2024 9:26 AM [facility] eGFR 53(L) >=60 mL/min/1. 73m2 LAB CHEMISTRY METHOD 09/10/2024 9:26 AM [facility] Comment:Calculation based on the Chronic Kidney Disease Epidemiology Collaboration (CKD-EPI) equation refit without adjustment for race. BUN/Creatinine Ratio 21.1 LAB CHEMISTRY METHOD 09/10/2024 9:26 AM [facility] Calcium 9.3 8.5 - 10.5 mg/dL LAB CHEMISTRY METHOD 09/10/2024 9:26 AM [facility] Blood Venous blood specimen / Unknown Venipuncture / Unknown 09/10/2024 5:58 AM EST 09/10/2024 8:24 AM EST us Baldemar Blackman MD LAB BLOOD ORDERABLES Final Res ult [facility] [address] [place] [address], documented in this encounter Visit Diagnoses Diagnosis Encounter for other general examination documented in this encounter Care Teams Continuous Conveyor Screen Drier Relationship Specialty Start Date End Date Baldemar Blackman MD [address] [place] [address] PCP - General Internal Medicine 09/14/24 documented as of this encounter
--- OUTSIDE RECORDS SUMMARY | 2025-08-22 10:27 | XMS_ITS | Clinical Summary ---
Author Organization [facility] Address [address] [place] [address] Care Team Providers Care [employer] Registrar Name Role Phone Dina Wall Primary Care Provider [phone] Medications No known medications Social History Tobacco [...] (Zostavax) Discontinued Insurance [employer] FFS Care Teams [employer] Registrar Relationship Specialty Start Date End Date Dina Wall [facility] [address] [place] [phone] PCP - General Internal Medicine 12/18/12
--- OUTSIDE RECORDS SUMMARY | 2025-08-22 10:27 | XMS_ITS | Encounter Summary ---
Author Organization [facility] Address [address] [place] [address] Care Team Providers Care Metal Drill Operator Name Role Phone Baldemar Blackman MD Primary Care Provider Encounter Details Date Type Department Care Team (Late st Contact Info) Description 09/05/2024 Lab Requisition [facility] - Main Lab [address] [place] [address] Baldemar Blackman MD [address] [place] [address] Encounter for other general examination Social History [...] AM EST) WBC 7.4 4.8 - 10.8 K/[facility] LAB HEMETOLOGY METHOD 09/05/2024 11:10 AM EST [facility] RBC 3.80 3.80 - 4.80 M/mcL [...] 09/05/2024 11:10 AM [facility] Eosinophils Relative 2.7 % [...] 09/05/2024 11:10 AM [facility] Eosinophils Absolute 0.20 0.00 - 0.50 K/mcL LAB HEMETOLOGY METHOD 09/05/2024 11:10 AM [facility] Basophils Absolute 0.03 0.00 - 0.20 K/mcL LAB HEMETOLOGY METHOD 09/05/2024 11:10 AM [facility] Immature Granulocytes Absolute 0.01 0.00 - 0.03 K/mcL LAB HEMETOLOGY METHOD 09/05/2024 11:10 AM [facility] Blood Venous blood specimen / Unknown Venipuncture / Unknown 09/05/2024 6:54 AM EST 09/05/2024 9:50 AM EST us Baldemar Blackman MD LAB BLOOD ORDERABLES Final Res ult [facility] [address] [place] [address], [place] [phone] * (ABNORMAL) Magnesium (09/05/2024 6:54 AM EST) Magnesium 1.8(L) 1.9 - 2.6 mg/dL LAB CHEMISTRY METHOD 09/05/2024 11:31 AM EST [facility] Blood Venous blood specimen / Unknown Venipuncture / Unknown 09/05/2024 6:54 AM EST 09/05/2024 9:50 AM EST Baldemar Blackman MD LAB BLOOD ORDERABLES Final Res ult Performing Organization Address [facility]/State/ZIP Co de Phone Number [facility] [address] [place] [address], [place] [phone] * (ABNORMAL) Comprehensive metabolic panel (09/05/2024 6:54 AM EST) Pathologist [facility] Sodium 139 133 - 145 mmol/L [...] [facility] Comment:Calculation based on the [...] ult [facility] [address] [place] [address], documented in this encounter Visit Diagnoses Diagnosis Encounter for other general examination documented in this encounter Care Teams Metal Drill Operator Relationship Specialty Start Date End Date Baldemar Blackman MD [address] [place] [address] PCP - General Internal Medicine 09/14/24 documented as of this encounter
--- OUTSIDE RECORDS SUMMARY | 2025-08-22 10:27 | XMS_ITS | Encounter Summary ---
[facility] Organization [facility] Address [address] [place] [address] Care Team Providers Care Press Box Custodian Name Role Phone Baldemar Blackman MD Primary Care Provider [phone] Encounter Details Date Type Department Care Team (Late st Contact Info) Description 09/14/2024 Lab Requisition [facility] - Main Lab [address] [place] [address] Baldemar Blackman MD [address] [place] [address] Encounter for other general examination Social History [...] LAB HEMETOLOGY METHOD 09/14/2024 9:19 AM EST [facility] RBC 3.80 3.80 - 4.80 M/mcL LAB HEMETOLOGY METHOD 09/14/2024 9:19 AM EST [facility] Hemoglobin 10.2(L) 11.5 - 16.0 g/dL LAB HEMETOLOGY METHOD 09/14/2024 9:19 AM [facility] Hematocrit 33.4(L) 35.0 - 47.0 % LAB HEMETOLOGY METHOD 09/14/2024 9:19 AM [facility] MCV 88.8 79.0 - 98.0 FL LAB HEMETOLOGY METHOD 09/14/2024 9:19 AM EST [facility] MCH 27.1 27.0 - 32.0 pcg LAB HEMETOLOGY METHOD 09/14/2024 9:19 AM [facility] MCHC 30.5(L) 32.0 - 37.0 g/dL LAB HEMETOLOGY METHOD 09/14/2024 9:19 AM [facility] RDW 14.7 11.0 - 15.0 % LAB HEMETOLOGY METHOD 09/14/2024 9:19 AM [facility] Platelets 352 130 - 400 K/mcL LAB HEMETOLOGY METHOD 09/14/2024 9:19 AM [facility] MPV 9.9 7.0 - 11.0 FL LAB HEMETOLOGY METHOD 09/14/2024 9:19 AM [facility] NRBC 0.0 <1.0 % LAB HEMETOLOGY METHOD 09/14/2024 9:19 AM EST [facility] NRBC Absolute 0.00 <0.10 K/mcL LAB HEMETOLOGY METHOD 09/14/2024 9:19 AM [facility] Blood Venous blood specimen / Unknown Venipuncture / Unknown 09/14/2024 6:28 AM EST 09/14/2024 8:05 AM EST us Baldemar Blackman MD LAB BLOOD ORDERABLES Final Res ult [facility] [address] [place] [address], [place] [phone] * (ABNORMAL) Comprehensive metabolic panel (09/14/2024 6:28 AM EST) Sodium 143 133 - 145 mmol/L LAB CHEMISTRY METHOD 09/14/2024 9:52 AM [facility] Potassium 4.7 3.5 - 5.5 mmol/L LAB CHEMISTRY METHOD 09/14/2024 9:52 AM [facility] Chloride 107 96 - 110 mmol/L LAB CHEMISTRY METHOD 09/14/2024 9:52 AM [facility] CO2 28 21 - 32 mmol/L LAB CHEMISTRY METHOD 09/14/2024 9:52 AM [facility] Anion Gap 8 3 - 11 LAB CHEMISTRY METHOD 09/14/2024 9:52 AM [facility] Glucose 89 70 - 100 mg/dL LAB CHEMISTRY METHOD 09/14/2024 9:52 AM [facility] BUN 23 5 - 25 mg/dL LAB CHEMISTRY METHOD 09/14/2024 9:52 AM [facility] Creatinine 1.07 0.50 - 1.10 mg/dL LAB CHEMISTRY METHOD 09/14/2024 9:52 AM [facility] eGFR 54(L) >=60 mL/min/1. 73m2 LAB CHEMISTRY METHOD 09/14/2024 9:52 AM [facility] Comment:Calculation based on the Chronic Kidney Disease Epidemiology Collaboration (CKD-EPI) equation refit without adjustment for race. BUN/Creatinine Ratio 21.5 LAB CHEMISTRY METHOD 09/14/2024 9:52 AM [facility] Calcium 9.6 8.5 - 10.5 mg/dL LAB CHEMISTRY METHOD 09/14/2024 9:52 AM [facility] AST (SGOT) 28 10 - 42 unit/L LAB CHEMISTRY METHOD 09/14/2024 9:52 AM [facility] ALT (SGPT) 68(H) 10 - 60 unit/L LAB CHEMISTRY METHOD 09/14/2024 9:52 AM EST [facility] Alkaline Phosphatase 232(H) 42 - 121 unit/L LAB CHEMISTRY METHOD 09/14/2024 9:52 AM [facility] Total Protein 5.0(L) 6.0 - 8.0 g/dL LAB CHEMISTRY METHOD 09/14/2024 9:52 AM [facility] Albumin 2.8(L) 3.2 - 5.0 g/dL LAB CHEMISTRY METHOD 09/14/2024 9:52 AM [facility] Total Bilirubin 0.4 0.0 - 1.4 mg/dL LAB CHEMISTRY METHOD 09/14/2024 9:52 AM [facility] Blood Venous blood specimen / Unknown Venipuncture / Unknown 09/14/2024 6:28 AM EST 09/14/2024 8:05 AM EST us Baldemar Blackman MD LAB BLOOD ORDERABLES Final Res ult [facility] [address] [place] [address], documented in this encounter Visit Diagnoses Diagnosis Encounter for other general examination documented in this encounter Care Teams Press Box Custodian Relationship Specialty Start Date End Date Baldemar Blackman MD [address] [place] [address] PCP - General Internal Medicine 09/14/24 documented as of this encounter
--- OUTSIDE RECORDS SUMMARY | 2025-08-22 10:27 | XMS_ITS | Patient Health Record ---
Author Organization - [facility] Address [address] [place] [address] Care Team Providers Care Data Steward Name Role Phone Ekaterina Escobar Unavailable [phone] ABRAN MANZO Unavailable [phone] GEMINI VASQUEZ Unavailable [phone] Allergies Allergen (clinical drug ingredient) Drug/Non Drug [...] Notes Problem Obesity due to excess calories (145846179) Other obesity due to excess calories (E66.09) Active confirmed Problem Primary insomnia (8933128) Primary insomnia (F51.01) Active confirmed Problem Age-related osteoporosis (654575732) Age-related osteoporosis without current pathological fracture (M81.0) Active confirmed Problem Incontinence of feces (24922471) Full incontinence of feces (R15.9) Active confirmed Problem Body mass index 30.00 to 34.99 (123623198763517) Body mass index [BMI] 34.0-34.9, adult (Z68.34) Active confirmed Problem Constipation (82974566) Constipation, unspecified constipation type (K59.00) Active confirmed Problem History of fall (128166418) History of fall (Z91.81) Active confirmed Problem Anxiety (85521342) Anxiety (F41.9) Active confi rmed Problem Gastroesophageal reflux disease without esophagitis (571166832) Gastroesophageal reflux disease without esophagitis (K21.9) Active confirmed Problem Inflammatory and toxic neuropathy (108513423) Peripheral polyneuropathy (G62.9) Active confirmed Problem Dizziness (809726834) Dizziness (R42) Active confirmed Problem Acquired hypothyroidism (285979332) Acquired hypothyroidism (E03.9) Active confirmed Problem Overactive urinary bladder (disorder) (765859636) OAB (overactive bladder) (N32.81) Active confirmed Problem Mild recurrent major depression (84594974) Mild episode of recurrent major depressive disorder (F33.0) Active confirmed Problem Mixed incontinence (349648772) Mixed stress and urge urinary incontinence (N39.46) Active confirmed Problem Mild intermittent asthma (851448519) Mild intermittent asthma without complication (J45.20) Active confirmed Problem Hypoparathyroidism (85844167) Hypoparathyroidism, unspecified hypoparathyroidism type (E20.9) Active confirmed Problem Dyslipidemia (527149982) Dyslipidemia (E78.5) Active confirmed Problem Lakhani's esophagus (364255638) 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 [address] [address] 11/26/2024 GEMINI VASQUEZ Other obesity due to [...] of recurrent major depressive disorder F33.0 - [facility] [address] [facility] [address] [place] [address] 11/27/2024 GEMINI VASQUEZ [facility] [address] [facility] [address] [place] [phone] 02/19/2025 Ekaterina Escobar [facility] [address] [place] [phone] 03/31/2025 GEMINI VASQUEZ [facility] [address] [place] [phone] 06/29/2025 ABRAN MANZO [facility] [address] [facility] [address] [place] [address] 11/30/2024 Ekaterina Escobar [facility] [address] [address] 12/16/2024 Ekaterina Escobar [facility] [place] [id number] [facility] [address] [place] [address] 12/17/2024 Ekaterina Escobar [facility] [address] [place] [address] 03/01/2025 Ekaterina Escobar Assessments Encounter Date Diagnosis [...] Including wearing closed toe shoes with supportive tire care manager, removing rugs from walkways in home, turning [...] has improved significantly since was admitted to [facility] a couple years ago. 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 22/04 line reinforced. 06/29/2025 - Educated on 2 objectives based on the HAND DRAWER IN HELPER/RN Care Plan - Caregiver/Ronak r voiced understanding [...] of [place] [address] [place] [address] [id number] Reema Dalton Self - patient is the insured Medicaid of [place] [address] [place] [phone] [id number] Reema Dalton Self - patient is the [...]
--- OUTSIDE RECORDS SUMMARY | 2025-08-22 10:27 | XMS_ITS | Clinical Summary ---
Author Organization [address] [facility] Address [address] [place] [address] Phone Care Team Providers Care Oracle Business Analyst Name Role Phone Baldemar Blackman MD Primary Care Provider [phone] Social History Tobacco Use Types Packs/Day Years [...] age to complete this topic Care Teams Oracle Business Analyst Relationship Specialty Start Date End Date Baldemar Blackman MD [address] [place] [address] PCP - General Internal Medicine 09/14/24
== END 2025-08-22 10:11 | disposition home or self-care (01) ==
LOC: HO.MRI 10:10
PROVIDERS: PCP Nurse Practitioner Family; Visit Provider Registered Nurse
DX: G43.909 Migraine, unspecified, not intractable, without status migrainosus (principal)
CPT/HCPCS: 70551

== ENCOUNTER → 2025-08-22 10:11 | Outpatient (BNV) | payer MEDICARE, SELFPAY | PROVIDERS: PCP Nurse Practitioner Family; Visit Provider Radiology Diagnostic Radiology | DX: G43.909 Migraine, unspecified, not intractable, without status migrainosus (principal); G31.9 Degenerative disease of nervous system, unspecified | CPT/HCPCS: 70551 ==

== ENCOUNTER 2025-08-24 13:49 | Outpatient (AMB) | payer MEDICARE, SELFPAY ==
--- OUTSIDE RECORDS SUMMARY | 2025-02-05 10:32 | XMS_ITS ---
Author Organization - [facility] Address [address] [place] [address] Care Team Providers Care Threshing Operator Name Role Phone Ekaterina Escobar Unavailable [phone] REASON FOR VISIT *Care Plan Update Encounters Encounter Location Date Provider Diagnosis - [facility] [address] [place] [address] 02/05/2025 Ekaterina Escobar Plan Of Treatment No Information Progress Notes * Alejandro IBARRAOneilB:1950 (75 yo F)Acc No.[id number]:02/05/2025 Care Plan Update Patient: Reema ROJO Provider: Teresa Escobar NP :1950 A ge:74 Y S ex:Female Date:02/05/2025 Address:[address] [facility] , [facility] Subjective: * Chief Complaints: * 1 . *Care Plan Update. * Medical History: Objective: * Vitals: Assessment: Plan: * Treatment: Care Plan: * Problems: * Billing Information: Care Plan Details* * Electronic signature of Leia Escobar NP on 08/24/2025 at 05:40 PM EST Sign off status: Pending * Provider: Teresa Escobar NP Date: 0 02/05/2025 Generated for Rashawni ng/Fajocelyn/eTransmitting on: 1 10/24/2024 05:40 PM EST
--- NOTE | 2025-08-24 14:07 | MHC.PC.OV ---
Vital Signs 08/24/25 14:09 Height 5 ft 6 in Weight 197 lb BMI 31.8 BP 130/72 Blood Pressure Location Lt brachial Position Sitting Pulse 74 Pulse Source Pulse Oximeter Pulse Oximetry (%) 98 Oxygen Delivery Method Room Air Intake Visit Reasons: 3 months f/up Social And Human Services Assistant Required: No Accompanied by: Self / Same As Patient Allergies adhesive Allergy (Severe, Verified 08/24/25 15:00) Hives, bleeding ondansetron (From ZOFRAN ( HYDROCHLORIDE)) Allergy (Severe, Verified 08/24/25 15:00) ANAPHYLAXIS Medication List - Last Reconciled 08/24/25 by Tushar Arroyo, [facility] albuterol sulfate 90 mcg/actuation 90 mcg inhalation DAILY atorvastatin 20 mg PO BEDTIME clonazepam 0.5 mg PO TID PRN 30 days esomeprazole magnesium (Nexium) 40 mg PO BEDTIME famotidine (Pepcid) 40 mg PO BEDTIME levothyroxine 88 mcg PO DAILY trazodone 100 mg PO BEDTIME vibegron (Gemtesa) 75 mg PO DAILY Tobacco use date assessed: 08/24/25 Fall risk assessment: No Falls in past year Last assessed Fall Risk: 08/24/25 Dental Screening Dental Screen Date: 08/24/25 Did you have a dental visit in the last 12 months?: Yes Did you have a dental problem in the last 6 months where you did not have access to dental care?: No Was dental information given to patient?: Patient has dentist HPI 3 months f/up HPI Details Chief Complaint The patient presents for follow-up of dyslipidemia. History of Present Illness The patient is a 75 year old individual presenting for a follow-up visit for dyslipidemia. The patient is currently on atorvastatin 20 mg and tolerates this medication well. The patient reports some dizziness and is currently under the care of a neurologist for this issue. The patient also sees a police patrol officer on a regular basis. Social History Health Maintenance - The patient will have labs drawn in the near future, which will include a lipid panel. - The patient sees a police patrol officer on a regular basis. Review of Systems - Constitutional: Reports being in good spirits. - Cardiovascular: Denies chest pain. - Respiratory: Denies shortness of breath. - Neurological: Reports some dizziness. Physical Exam General: Cooperative, healthy appearing, comfortable, no acute distress and well developed Orientation: Patient oriented x3 Limitations: No limitations Head: Normal to inspection Ears: Hearing grossly normal bilaterally Nose: Normal external nose present Face and sinus: Normal facial exam Eyes: Appearance normal, both eyes and all related structures Neck: Normal visual inspection and Yes full ROM Respiratory: Normal respiratory effort and able to speak in complete sentences. Clear to auscultation bilaterally Cardiovascular: Regular rate and rhythm. Normal S1 and S2, faint systolic murmur noted GI: Normal to inspection. Soft to palpation and nontender Skin: No rashes or lesions noted Neuro: Patient oriented x3 Extremities: Normal to inspection Results Plan 1. Dyslipidemia The patient presents for a follow-up of dyslipidemia and is currently tolerating atorvastatin 20 mg without any issues. A lipid panel will be ordered for the near future to monitor the condition. 2. Dizziness The patient reports some dizziness, which is currently being managed by a neurologist. The patient will continue to follow up with neurology as needed. Discussion Notes I discussed the plan for a follow-up on the patient's dyslipidemia, confirming that the patient is tolerating atorvastatin 20 mg well. We will proceed with obtaining labs, including a lipid panel, in the near future. I acknowledged that the patient is under the care of neurology for dizziness and has regular follow-ups with cardiology. Patient Instructions - Continue to take your atorvastatin 20 mg daily as prescribed. - We will be ordering blood work soon to check your cholesterol levels. - Please continue to follow up with your heart doctor (police patrol officer) and nerve doctor (neurologist) as recommended by them. [facility] Medical History History of paresthesia Anxiety Migraine Iliotibial band syndrome of right side Pulmonary nodule Gastric dysplasia Osteoarthritis of left knee Osteoarthritis Elevated alkaline phosphatase level Osteoarthritis of right knee Right rotator cuff tear History of kidney disease Multiple adenomatous polyps Upper respiratory infection Spleen anomaly Dizziness SOB (shortness of breath) Vestibular disequilibrium Pre-op examination Preoperative cardiovascular examination Bilateral knee pain Postmenopausal Breast cancer Fracture of femoral neck, left Preoperative clearance Early satiety Nausea Right shoulder pain Nausea and vomiting History of breast cancer Skin lesions Screening for lipid disorders Irritable bowel syndrome with constipation Screening for colon cancer Physical exam History of sepsis CKD (chronic kidney disease) CLYDE (obstructive sleep apnea) Clostridium difficile infection Lupus Glaucoma Sleep apnea Hypothyroidism Closed fracture of neck of left femur Fibromyalgia Surgical History History of total right knee replacement (TKR) History of total right knee replacement (08/2024) H/O shoulder surgery Hx of tonsillectomy History of hip surgery History of esophagogastroduodenoscopy (EGD) (05/14/25) H/O colonoscopy History of cholecystectomy Family History Father Heart attack Clogged artery (heart) COPD (chronic obstructive pulmonary disease) Mother Stroke Clogged artery (heart) Sister COPD (chronic obstructive pulmonary disease) Brother COPD (chronic obstructive pulmonary disease) Social History Household Members: None Housing: Apartment Housing Other:: nursing home Are you a primary care provider to a significant other at home: No Do you presently have visiting nurse or other home services: No Patient Tobacco Use Status: Never used Tobacco e-Cigarette/Vaping Use: Never Used Second Hand Smoke Exposure: No service: No Current occupational status: retired Gender identity: Female Cognitive needs: No Hearing needs: No Vision needs: No Questionnaire Thrive Questionnaire Date Thrive assessed: 11/26/24 I am a: Patient What is your living situation today?: I have a steady place to live Within the past 12 months, did the food you bought not last and you didn't have the money to get more?: Never true Within the past 12 months, did you worry whether your food would run out before you got money to buy more?: Never true Do you have trouble paying for medicines?: No Do you have trouble getting transportation to medical appointments?: No Do you have trouble paying your heating and electricity bill?: No Do you have trouble taking care of your child, family member or friend?: No Do you have trouble with day-to-day activities such as bathing, preparing meals, shopping, managing finances, etc.?: I choose not to answer this question Are you currently unemployed and looking for a job?: No Are you interested in more education?: I choose not to answer this question Please select the resources that you would like help with: None Currently or been in a relationship where the following occur: I choose not to answer THRIVE Score: 0 SEEMA-7 AMB Questionnaire SEEMA-7 Date SEEAM - 7 assessed: 04/26/25 Source: Developed by Drs. David Perez, Carole Michelle, Virgil Harris and colleagues, with an educational gifty from [employer]. Physical exam (Primary Care) Vital Signs: Last Vital Signs Pulse 74 08/24/25 14:09 BP 130/72 08/24/25 14:09 Pulse Ox 98 08/24/25 14:09 Oxygen Delivery Method Room Air 08/24/25 14:09 BMI result Body Mass Index 31.8 Tobacco/Smoking Status: Tobacco use Status Tobacco use date assessed 08/24/25 08/24/25 14:13 Patient Tobacco Use Status Never used Tobacco 08/24/25 14:09 e-Cigarette/Vaping Use Never Used 08/24/25 14:09 Thrive Assessment: Date of Thrive Assessment Date Thrive assessed 11/26/24 08/24/25 14:09 Currently or been in a relationship where the following occur: I choose not to answer Coding Level of Care Code Est Pt Level 3 (86791) Diagnoses Dyslipidemia E78.5 Vitamin D deficiency E55.9 Assessment & Plan Assessment & Plan (1) Dyslipidemia: Code(s): E78.5 - Hyperlipidemia, unspecified Category: Medical (2) Vitamin D deficiency: Code(s): E55.9 - Vitamin D deficiency, unspecified Category: Medical Plan . Orders: Orders TSH reflex Free T4 Today E78.5 - Hyperlipidemia, unspecified UA CC w/rflx Micro + Cult Today E78.5 - Hyperlipidemia, unspecified Complete Blood Count Auto Diff Today E78.5 - Hyperlipidemia, unspecified Comprehensive [place]. Panel Fast Today E78.5 - Hyperlipidemia, unspecified Lipid Panel Today E78.5 - Hyperlipidemia, unspecified Vitamin D 25-OH Total Today E55.9 - Vitamin D deficiency, unspecified
[2025-08-24 14:09] VITALS: BP 130/72; PULSE 74; O2SAT 98; BMI 31.8
--- OUTSIDE RECORDS SUMMARY | 2025-08-24 17:40 | XMS_ITS | Encounter Summary ---
[facility] Organization [facility] Address [address] [place] [address] Care Team Providers Care Supervisor Carding Name Role Phone Baldemar Blackman MD Primary Care Provider [phone] Encounter Details Date Type Department Care Team (Late st Contact Info) Description 09/14/2024 Lab Requisition [facility] - Main Lab [address] [place] [address] Baldemar Blackman MD [address] [place] [id number] Encounter for other general examination Social History [...] LAB HEMETOLOGY METHOD 09/14/2024 9:19 AM EST [facility] RBC 3.80 3.80 - 4.80 M/mcL LAB HEMETOLOGY METHOD 09/14/2024 9:19 AM EST [facility] Hemoglobin 10.2(L) 11.5 - 16.0 g/dL LAB HEMETOLOGY METHOD 09/14/2024 9:19 AM [facility] Hematocrit 33.4(L) 35.0 - 47.0 % LAB HEMETOLOGY METHOD 09/14/2024 9:19 AM [facility] MCV 88.8 79.0 - 98.0 FL LAB HEMETOLOGY METHOD 09/14/2024 9:19 AM EST [facility] MCH 27.1 27.0 - 32.0 pcg LAB HEMETOLOGY METHOD 09/14/2024 9:19 AM [facility] MCHC 30.5(L) 32.0 - 37.0 g/dL LAB HEMETOLOGY METHOD 09/14/2024 9:19 AM [facility] RDW 14.7 11.0 - 15.0 % LAB HEMETOLOGY METHOD 09/14/2024 9:19 AM [facility] Platelets 352 130 - 400 K/mcL LAB HEMETOLOGY METHOD 09/14/2024 9:19 AM [facility] MPV 9.9 7.0 - 11.0 FL LAB HEMETOLOGY METHOD 09/14/2024 9:19 AM [facility] NRBC 0.0 <1.0 % LAB HEMETOLOGY METHOD 09/14/2024 9:19 AM EST [facility] NRBC Absolute 0.00 <0.10 K/mcL LAB HEMETOLOGY METHOD 09/14/2024 9:19 AM [facility] Blood Venous blood specimen / Unknown Venipuncture / Unknown 09/14/2024 6:28 AM EST 09/14/2024 8:05 AM EST us Baldemar Blackman MD LAB BLOOD ORDERABLES Final Res ult [facility] [address] [place] [address], [place] [phone] * (ABNORMAL) Comprehensive metabolic panel (09/14/2024 6:28 AM EST) Sodium 143 133 - 145 mmol/L LAB CHEMISTRY METHOD 09/14/2024 9:52 AM [facility] Potassium 4.7 3.5 - 5.5 mmol/L LAB CHEMISTRY METHOD 09/14/2024 9:52 AM [facility] Chloride 107 96 - 110 mmol/L LAB CHEMISTRY METHOD 09/14/2024 9:52 AM [facility] CO2 28 21 - 32 mmol/L LAB CHEMISTRY METHOD 09/14/2024 9:52 AM [facility] Anion Gap 8 3 - 11 LAB CHEMISTRY METHOD 09/14/2024 9:52 AM [facility] Glucose 89 70 - 100 mg/dL LAB CHEMISTRY METHOD 09/14/2024 9:52 AM [facility] BUN 23 5 - 25 mg/dL LAB CHEMISTRY METHOD 09/14/2024 9:52 AM [facility] Creatinine 1.07 0.50 - 1.10 mg/dL LAB CHEMISTRY METHOD 09/14/2024 9:52 AM [facility] eGFR 54(L) >=60 mL/min/1. 73m2 LAB CHEMISTRY METHOD 09/14/2024 9:52 AM [facility] Comment:Calculation based on the Chronic Kidney Disease Epidemiology Collaboration (CKD-EPI) equation refit without adjustment for race. BUN/Creatinine Ratio 21.5 LAB CHEMISTRY METHOD 09/14/2024 9:52 AM [facility] Calcium 9.6 8.5 - 10.5 mg/dL LAB CHEMISTRY METHOD 09/14/2024 9:52 AM [facility] AST (SGOT) 28 10 - 42 unit/L LAB CHEMISTRY METHOD 09/14/2024 9:52 AM [facility] ALT (SGPT) 68(H) 10 - 60 unit/L LAB CHEMISTRY METHOD 09/14/2024 9:52 AM EST [facility] Alkaline Phosphatase 232(H) 42 - 121 unit/L LAB CHEMISTRY METHOD 09/14/2024 9:52 AM [facility] Total Protein 5.0(L) 6.0 - 8.0 g/dL LAB CHEMISTRY METHOD 09/14/2024 9:52 AM [facility] Albumin 2.8(L) 3.2 - 5.0 g/dL LAB CHEMISTRY METHOD 09/14/2024 9:52 AM [facility] Total Bilirubin 0.4 0.0 - 1.4 mg/dL LAB CHEMISTRY METHOD 09/14/2024 9:52 AM [facility] Blood Venous blood specimen / Unknown Venipuncture / Unknown 09/14/2024 6:28 AM EST 09/14/2024 8:05 AM EST us Baldemar Blackman MD LAB BLOOD ORDERABLES Final Res ult [facility] [address] [place] [address], documented in this encounter Visit Diagnoses Diagnosis Encounter for other general examination documented in this encounter Care Teams Supervisor Carding Relationship Specialty Start Date End Date Baldemar Blackman MD [address] [place] [id number] PCP - General Internal Medicine 09/14/24 documented as of this encounter
--- OUTSIDE RECORDS SUMMARY | 2025-08-24 17:40 | XMS_ITS | Encounter Summary ---
Author Organization [facility] Address [address] [place] [address] Care Team Providers Care Apprentice Photographer Name Role Phone Baldemar Blackman MD Primary Care Provider [phone] Encounter Details Date Type Department Care Team (Late st Contact Info) Description 09/05/2024 Lab Requisition [facility] - Main Lab [address] [place] [address] Baldemar Blackman MD [address] [place] [address] Encounter for other general examination Social History [...] AM EST) WBC 7.4 4.8 - 10.8 [facility] LAB HEMETOLOGY METHOD 09/05/2024 11:10 AM EST [facility] LAB RBC 3.80 3.80 - 4.80 M/mcL LAB HEMETOLOGY METHOD 09/05/2024 11:10 AM [facility] LAB Hemoglobin 10.3(L) 11.5 - 16.0 g/dL LAB HEMETOLOGY METHOD 09/05/2024 11:10 AM [facility] LAB Hematocrit 32.8(L) 35.0 - 47.0 % LAB HEMETOLOGY METHOD 09/05/2024 11:10 AM [facility] LAB MCV 86.3 79.0 - 98.0 FL LAB HEMETOLOGY METHOD 09/05/2024 11:10 AM [facility] LAB MCH 27.1 27.0 - 32.0 pcg LAB HEMETOLOGY METHOD 09/05/2024 11:10 AM [facility] LAB MCHC 31.4(L) 32.0 - 37.0 g/dL LAB HEMETOLOGY METHOD 09/05/2024 11:10 AM [facility] LAB RDW 14.8 11.0 - 15.0 % LAB HEMETOLOGY METHOD 09/05/2024 11:10 AM [facility] LAB Platelets 170 130 - 400 K/mcL LAB HEMETOLOGY METHOD 09/05/2024 11:10 AM [facility] LAB MPV 11.0 7.0 - 11.0 FL LAB HEMETOLOGY METHOD 09/05/2024 11:10 AM [facility] LAB NRBC 0.0 <1.0 % LAB HEMETOLOGY METHOD 09/05/2024 11:10 AM [facility] LAB NRBC Absolute 0.00 <0.10 K/mcL LAB HEMETOLOGY METHOD 09/05/2024 11:10 AM [facility] LAB Neutrophils Relative 67.5 % LAB HEMETOLOGY METHOD 09/05/2024 11:10 AM [facility] LAB Lymphocytes Relative 17.1 % LAB HEMETOLOGY METHOD 09/05/2024 11:10 AM [facility] LAB Monocytes Relative 12.2 % LAB HEMETOLOGY METHOD 09/05/2024 11:10 AM [facility] LAB Eosinophils Relative 2.7 % LAB HEMETOLOGY METHOD 09/05/2024 11:10 AM [facility] LAB Basophils Relative 0.4 % LAB HEMETOLOGY METHOD 09/05/2024 11:10 AM [facility] LAB Immature Granulocytes Relative 0.1 % LAB HEMETOLOGY METHOD 09/05/2024 11:10 AM [facility] LAB Neutrophils Absolute 4.97 1.50 - 7.00 K/mcL LAB HEMETOLOGY METHOD 09/05/2024 11:10 AM [facility] LAB Lymphocytes Absolute 1.26 1.00 - 5.00 K/mcL LAB HEMETOLOGY METHOD 09/05/2024 11:10 AM [facility] LAB Monocytes Absolute 0.90 0.20 - 1.00 K/mcL LAB HEMETOLOGY METHOD 09/05/2024 11:10 AM [facility] LAB Eosinophils Absolute 0.20 0.00 - 0.50 K/mcL LAB HEMETOLOGY METHOD 09/05/2024 11:10 AM [facility] LAB Basophils Absolute 0.03 0.00 - 0.20 K/mcL LAB HEMETOLOGY METHOD 09/05/2024 11:10 AM [facility] LAB Immature Granulocytes Absolute 0.01 0.00 - 0.03 K/mcL LAB HEMETOLOGY METHOD 09/05/2024 11:10 AM [facility] LAB Blood Venous blood specimen / Unknown Venipuncture / Unknown 09/05/2024 6:54 AM EST 09/05/2024 9:50 AM EST us Baldemar Blackman MD LAB BLOOD ORDERABLES Final Res ult [facility] LAB [address] [place] [address], [place] [phone] * (ABNORMAL) Magnesium (09/05/2024 6:54 AM EST) Magnesium 1.8(L) 1.9 - 2.6 mg/dL LAB CHEMISTRY METHOD 09/05/2024 11:31 AM EST [facility] LAB Blood Venous blood specimen / Unknown Venipuncture / Unknown 09/05/2024 6:54 AM EST 09/05/2024 9:50 AM EST Baldemar Blackman MD LAB BLOOD ORDERABLES Final Res ult Performing Organization Address [facility]/State/ZIP Co de Phone Number [facility] LAB [address] [place] [address], [place] [phone] * (ABNORMAL) Comprehensive metabolic panel (09/05/2024 6:54 AM EST) Pathologist [facility] Sodium 139 133 - 145 mmol/L LAB CHEMISTRY METHOD 09/05/2024 11:31 AM [facility] LAB Potassium 4.4 3.5 - 5.5 mmol/L LAB CHEMISTRY METHOD 09/05/2024 11:31 AM [facility] LAB Chloride 107 96 - 110 mmol/L LAB CHEMISTRY METHOD 09/05/2024 11:31 AM [facility] LAB CO2 25 21 - 32 mmol/L LAB CHEMISTRY METHOD 09/05/2024 11:31 AM [facility] LAB Anion Gap 7 3 - 11 LAB CHEMISTRY METHOD 09/05/2024 11:31 AM [facility] LAB Glucose 85 70 - 100 mg/dL LAB CHEMISTRY METHOD 09/05/2024 11:31 AM [facility] LAB BUN 23 5 - 25 mg/dL LAB CHEMISTRY METHOD 09/05/2024 11:31 AM [facility] LAB Creatinine 0.92 0.50 - 1.10 mg/dL LAB CHEMISTRY METHOD 09/05/2024 11:31 AM [facility] LAB eGFR 65 >=60 mL/min/1. 73m2 LAB CHEMISTRY METHOD 09/05/2024 11:31 AM [facility] LAB Comment:Calculation based on the Chronic Kidney Disease Epidemiology Collaboration (CKD-EPI) equation refit without adjustment for race. BUN/Creatinine Ratio 25.0 LAB CHEMISTRY METHOD 09/05/2024 11:31 AM [facility] LAB Calcium 9.3 8.5 - 10.5 mg/dL LAB CHEMISTRY METHOD 09/05/2024 11:31 AM [facility] LAB AST (SGOT) 87(H) 10 - 42 unit/L LAB CHEMISTRY METHOD 09/05/2024 11:31 AM [facility] LAB ALT (SGPT) 98(H) 10 - 60 unit/L LAB CHEMISTRY METHOD 09/05/2024 11:31 AM [facility] LAB Alkaline Phosphatase 305(H) 42 - 121 unit/L LAB CHEMISTRY METHOD 09/05/2024 11:31 AM [facility] LAB Total Protein 4.9(L) 6.0 - 8.0 g/dL LAB CHEMISTRY METHOD 09/05/2024 11:31 AM [facility] LAB Albumin 2.6(L) 3.2 - 5.0 g/dL LAB CHEMISTRY METHOD 09/05/2024 11:31 AM [facility] LAB Total Bilirubin 0.6 0.0 - 1.4 mg/dL LAB CHEMISTRY METHOD 09/05/2024 11:31 AM [facility] LAB Blood Venous blood specimen / Unknown Venipuncture / Unknown 09/05/2024 6:54 AM EST 09/05/2024 9:50 AM EST us Baldemar Blackman MD LAB BLOOD ORDERABLES Final Res ult [facility] [address] [place] [address], documented in this encounter Visit Diagnoses Diagnosis Encounter for other general examination documented in this encounter Care Teams Apprentice Photographer Relationship Specialty Start Date End Date Baldemar Blackman MD [address] [place] [address] PCP - General Internal Medicine 09/14/24 documented as of this encounter
--- OUTSIDE RECORDS SUMMARY | 2025-08-24 17:40 | XMS_ITS | Clinical Summary ---
Author Organization 299 [facility] Address [address] [place] [address] Phone Care Team Providers Care Enrollment Management Manager Name Role Phone Baldemar Blackman MD Primary Care Provider [phone] Social History Tobacco Use Types Packs/Day Years [...] age to complete this topic Care Teams Enrollment Management Manager Relationship Specialty Start Date End Date Baldemar Blackman MD [address] [place] [address] PCP - General Internal Medicine 09/14/24
--- OUTSIDE RECORDS SUMMARY | 2025-08-24 17:40 | XMS_ITS | Clinical Summary ---
Author Organization [facility] Address [address] [place] [address] Care Team Providers Care Scientist Engineer Name Role Phone Dina Wall Primary Care Provider Medications No known medications Social History Tobacco [...] (Zostavax) Discontinued Insurance [employer] FFS Care Teams Scientist Engineer Relationship Specialty Start Date End Date Dina Wall [facility] [address] [place] [phone] PCP - General Internal Medicine 12/18/12
--- OUTSIDE RECORDS SUMMARY | 2025-08-24 17:40 | XMS_ITS | Patient Health Record ---
Author Organization - [facility] Address [address] [place] [address] Care Team Providers Care Senior Etl Developer Name Role Phone Ekaterina Escobar Unavailable [phone] ABRAN MANZO Unavailable [phone] GEMINI VASQUEZ Unavailable [phone] Allergies Allergen (clinical drug ingredient) Drug/Non Drug [...] Notes Problem Obesity due to excess calories (725508636) Other obesity due to excess calories (E66.09) Active confirmed Problem Primary insomnia (2023430) Primary insomnia (F51.01) Active confirmed Problem Age-related osteoporosis (722986533) Age-related osteoporosis without current pathological fracture (M81.0) Active confirmed Problem Incontinence of feces (34024909) Full incontinence of feces (R15.9) Active confirmed Problem Body mass index 30.00 to 34.99 (912211396012209) Body mass index [BMI] 34.0-34.9, adult (Z68.34) Active confirmed Problem Constipation (34198858) Constipation, unspecified constipation type (K59.00) Active confirmed Problem History of fall (794680135) History of fall (Z91.81) Active confirmed Problem Anxiety (55422473) Anxiety (F41.9) Active confi rmed Problem Gastroesophageal reflux disease without esophagitis (954406626) Gastroesophageal reflux disease without esophagitis (K21.9) Active confirmed Problem Inflammatory and toxic neuropathy (472151951) Peripheral polyneuropathy (G62.9) Active confirmed Problem Dizziness (535583468) Dizziness (R42) Active confirmed Problem Acquired hypothyroidism (810038188) Acquired hypothyroidism (E03.9) Active confirmed Problem Overactive urinary bladder (disorder) (208858977) OAB (overactive bladder) (N32.81) Active confirmed Problem Mild recurrent major depression (65654406) Mild episode of recurrent major depressive disorder (F33.0) Active confirmed Problem Mixed incontinence (386545393) Mixed stress and urge urinary incontinence (N39.46) Active confirmed Problem Mild intermittent asthma (762422514) Mild intermittent asthma without complication (J45.20) Active confirmed Problem Hypoparathyroidism (88254962) Hypoparathyroidism, unspecified hypoparathyroidism type (E20.9) Active confirmed Problem Dyslipidemia (123638605) Dyslipidemia (E78.5) Active confirmed Problem 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) 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 confirmed Problem Primary osteoarthritis (111652584) Primary osteoarthritis involving multiple joints (M15.0) Active confirmed Problem History of musculoskeletal disease (840401347) History of rotator cuff tear (Z87.39) Active [...] Encounters Encounter Location Date Provider Diagnosis - [facility] [address] [address] 11/26/2024 GEMINI VASQUEZ Other obesity due to [...] of recurrent major depressive disorder F33.0 - [facility] [address] [facility] [address] [place] [address] 11/27/2024 GEMINI VASQUEZ [facility] [address] [facility] [address] [place] [address] 02/19/2025 Ekaterina Escobar [facility] [address] [place] [address] 03/31/2025 GEMINI VASQUEZ [facility] [address] [place] [address] 06/29/2025 ABRAN MANZO [facility] 75 [facility] [address] [place] [address] 11/30/2024 Ekaterina Escobar [facility] [address] [address] 12/16/2024 Ekaterina Escobar [facility] [place] [address] [facility] [address] [place] [address] 12/17/2024 Ekaterina Escobar [facility] [address] [place] [address] 03/01/2025 Ekaterina Escobar Assessments Encounter Date Diagnosis [...] Including wearing closed toe shoes with supportive warp dresser, removing rugs from walkways in home, turning [...] has improved significantly since was admitted to [facility] a couple years ago. 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 22/04 line reinforced. 06/29/2025 - Educated on 2 objectives based on the PUBLIC SAFETY POLICE/RN Care Plan - Caregiver/Ronak r voiced understanding [...] of JACQU[place]INE [address] [place] [address] [id number] Reema Dalton Self - patient is the insured Medicaid of [place] [address] [place] [phone] [id number] Reema Dalton Self - patient is the [...]
--- OUTSIDE RECORDS SUMMARY | 2025-08-24 17:40 | XMS_ITS | Encounter Summary ---
Author Organization [facility] Address [address] [place] [address] Care Team Providers Care Replanter Name Role Phone Baldemar Blackman MD Primary Care Provider Encounter Details Date Type Department Care Team (Late st Contact Info) Description 09/10/2024 Lab Requisition [facility] Lab [address] [place] [address] Baldemar Blackman MD [address] [place] [address] Encounter for other general examination Social History [...] LAB HEMETOLOGY METHOD 09/10/2024 9:11 AM EST [facility] LAB RBC 3.60(L) 3.80 - 4.80 M/[facility] LAB HEMETOLOGY METHOD 09/10/2024 9:11 AM EST [facility] LAB Hemoglobin 9.7(L) 11.5 - 16.0 g/dL LAB HEMETOLOGY METHOD 09/10/2024 9:11 AM [facility] LAB Hematocrit 31.3(L) 35.0 - 47.0 % LAB HEMETOLOGY METHOD 09/10/2024 9:11 AM [facility] LAB MCV 88.2 79.0 - 98.0 FL LAB HEMETOLOGY METHOD 09/10/2024 9:11 AM [facility] LAB MCH 27.3 27.0 - 32.0 pcg LAB HEMETOLOGY METHOD 09/10/2024 9:11 AM [facility] LAB MCHC 31.0(L) 32.0 - 37.0 g/dL LAB HEMETOLOGY METHOD 09/10/2024 9:11 AM [facility] LAB RDW 14.4 11.0 - 15.0 % LAB HEMETOLOGY METHOD 09/10/2024 9:11 AM [facility] LAB Platelets 273 130 - 400 K/mcL LAB HEMETOLOGY METHOD 09/10/2024 9:11 AM [facility] LAB MPV 10.3 7.0 - 11.0 FL LAB HEMETOLOGY METHOD 09/10/2024 9:11 AM [facility] LAB NRBC 0.0 <1.0 % LAB HEMETOLOGY METHOD 09/10/2024 9:11 AM EST [facility] LAB NRBC Absolute 0.00 <0.10 K/mcL LAB HEMETOLOGY METHOD 09/10/2024 9:11 AM [facility] LAB Blood Venous blood specimen / Unknown Venipuncture / Unknown 09/10/2024 5:58 AM EST 09/10/2024 8:24 AM EST us Baldemar Blackman MD LAB BLOOD ORDERABLES Final Res ult [facility] LAB [address] [place] [address], [place] [phone] * (ABNORMAL) Basic metabolic panel (09/10/2024 5:58 AM EST) Sodium 140 133 - 145 mmol/L LAB CHEMISTRY METHOD 09/10/2024 9:26 AM [facility] LAB Potassium 4.4 3.5 - 5.5 mmol/L LAB CHEMISTRY METHOD 09/10/2024 9:26 AM [facility] LAB Chloride 107 96 - 110 mmol/L LAB CHEMISTRY METHOD 09/10/2024 9:26 AM [facility] LAB CO2 30 21 - 32 mmol/L LAB CHEMISTRY METHOD 09/10/2024 9:26 AM [facility] LAB Anion Gap 3 3 - 11 LAB CHEMISTRY METHOD 09/10/2024 9:26 AM [facility] LAB Glucose 85 70 - 100 mg/dL LAB CHEMISTRY METHOD 09/10/2024 9:26 AM [facility] LAB BUN 23 5 - 25 mg/dL LAB CHEMISTRY METHOD 09/10/2024 9:26 AM [facility] LAB Creatinine 1.09 0.50 - 1.10 mg/dL LAB CHEMISTRY METHOD 09/10/2024 9:26 AM [facility] LAB eGFR 53(L) >=60 mL/min/1. 73m2 LAB CHEMISTRY METHOD 09/10/2024 9:26 AM [facility] LAB Comment:Calculation based on the Chronic Kidney Disease Epidemiology Collaboration (CKD-EPI) equation refit without adjustment for race. BUN/Creatinine Ratio 21.1 LAB CHEMISTRY METHOD 09/10/2024 9:26 AM [facility] LAB Calcium 9.3 8.5 - 10.5 mg/dL LAB CHEMISTRY METHOD 09/10/2024 9:26 AM [facility] LAB Blood Venous blood specimen / Unknown Venipuncture / Unknown 09/10/2024 5:58 AM EST 09/10/2024 8:24 AM EST us Baldemar Blackman MD LAB BLOOD ORDERABLES Final Res ult [facility] [address] [place] [address], documented in this encounter Visit Diagnoses Diagnosis Encounter for other general examination documented in this encounter Care Teams Replanter Relationship Specialty Start Date End Date Baldemar Blackman MD [address] [place] [address] PCP - General Internal Medicine 09/14/24 documented as of this encounter
== END 2025-08-24 15:10 | disposition home or self-care (01) ==
LOC: HO.HMCC 13:50
PROVIDERS: PCP Nurse Practitioner Family; Visit Provider Nurse Practitioner Family
DX: E78.5 Hyperlipidemia, unspecified (principal); E55.9 Vitamin D deficiency, unspecified

== ENCOUNTER → 2025-08-24 13:49 | Outpatient (BNVA) | payer MEDICARE, SELFPAY | PROVIDERS: PCP Nurse Practitioner Family; Visit Provider Nurse Practitioner Family | DX: E78.5 Hyperlipidemia, unspecified (principal); E55.9 Vitamin D deficiency, unspecified | CPT/HCPCS: 99212 ==

== ENCOUNTER 2025-09-01 13:44 | Outpatient (REF) | payer MEDICARE, SELFPAY ==
--- OUTSIDE RECORDS SUMMARY | 2025-02-05 10:32 | XMS_ITS ---
Author Organization - [facility] Address [address] [place] [address] Care Team Providers Care Geological Specialist Name Role Phone Ekaterina Escobar Unavailable [phone] REASON FOR VISIT *Care Plan Update Encounters Encounter Location Date Provider Diagnosis - [facility] [address] [facility] [address] [place] [address] 02/05/2025 Ekaterina Escobar Plan Of Treatment No Information Progress Notes * Alejandro IBARRAOneilB:1950 (75 yo F)Acc No.[id number]:02/05/2025 Care Plan Update Patient: Reema ROJO Provider: Teresa Escobar NP :1950 A ge:74 Y S ex:Female Date:02/05/2025 Address:[address] , [facility] Subjective: * Chief Complaints: * 1 . *Care Plan Update. * Medical History: Objective: * Vitals: Assessment: Plan: * Treatment: Care Plan: * Problems: * Billing Information: Care Plan Details* * Electronic signature of Leia Escobar NP on 09/01/2025 at 04:21 PM EST Sign off status: Pending * Provider: Teresa Escobar NP Date: 0 02/05/2025 Generated for Rashawni ng/Debbie/eTransmitting on: 1 11/02/2024 04:21 PM EST
--- NOTE | 2025-09-01 14:04 | EMG_ITS ---
Chief complaint: Numbness and tingling left upper and lower extremity Referred by:?Cailin Tripathi NP Procedure done: Bilateral upper and lower extremities NCS/EMG Bilateral median, ulnar, peroneal, and tibial motor studies were obtained with F responses. Tibial H reflexes were obtained. Bilateral median and ulnar mixed sensory, median and lateral antecubital brachial sensory, radial sensory, superficial peroneal sensory, and sural sensory studies were obtained. Needle examination was performed. Findings: In motor studies, peroneal motor amplitudes were nihaiilu-ax-lmkexg early reduced with mild slowing of conduction velocity. Right tibial amplitude was slightly reduced with borderline normal conduction velocity. Sural and superficial responses were absent. Antecubital brachial responses were absent. 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 [place] [id number] 4 extremities [facility]
--- OUTSIDE RECORDS SUMMARY | 2025-09-01 16:21 | XMS_ITS | Patient Health Record ---
Author Organization - [facility] Address [address] [place] [address] Care Team Providers Care Public Finance Specialist Name Role Phone Ekaterina Escobar Unavailable [phone] ABRAN MANZO Unavailable [phone] GEMINI VASQUEZ Unavailable [phone] Allergies Allergen (clinical drug ingredient) Drug/Non Drug [...] Notes Problem Obesity due to excess calories (016597624) Other obesity due to excess calories (E66.09) Active confirmed Problem Primary insomnia (2701067) Primary insomnia (F51.01) Active confirmed Problem Age-related osteoporosis (757225742) Age-related osteoporosis without current pathological fracture (M81.0) Active confirmed Problem Incontinence of feces (89541303) Full incontinence of feces (R15.9) Active confirmed Problem Body mass index 30.00 to 34.99 (685565073662884) Body mass index [BMI] 34.0-34.9, adult (Z68.34) Active confirmed Problem Constipation (19881199) Constipation, unspecified constipation type (K59.00) Active confirmed Problem History of fall (450599779) History of fall (Z91.81) Active confirmed Problem Anxiety (55999934) Anxiety (F41.9) Active confi rmed Problem Gastroesophageal reflux disease without esophagitis (410951768) Gastroesophageal reflux disease without esophagitis (K21.9) Active confirmed Problem Inflammatory and toxic neuropathy (258091236) Peripheral polyneuropathy (G62.9) Active confirmed Problem Dizziness (136327016) Dizziness (R42) Active confirmed Problem Acquired hypothyroidism (797323079) Acquired hypothyroidism (E03.9) Active confirmed Problem Overactive urinary bladder (disorder) (381019409) OAB (overactive bladder) (N32.81) Active confirmed Problem Mild recurrent major depression (36931491) Mild episode of recurrent major depressive disorder (F33.0) Active confirmed Problem Mixed incontinence (625455132) Mixed stress and urge urinary incontinence (N39.46) Active confirmed Problem Mild intermittent asthma (275428174) Mild intermittent asthma without complication (J45.20) Active confirmed Problem Hypoparathyroidism (19070722) Hypoparathyroidism, unspecified hypoparathyroidism type (E20.9) Active confirmed Problem Dyslipidemia (360280140) Dyslipidemia (E78.5) Active confirmed Problem Lakhani's esophagus (320743128) 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 confirmed Problem Primary osteoarthritis (695843843) Primary osteoarthritis involving multiple joints (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 [address] [facility] [address] [place] [address] 02/19/2025 Ekaterina Escobar [facility] [address] [place] [address] [place] [address] 03/31/2025 GEMINI VASQUEZ [facility] [address] [address] [place] [address] 06/29/2025 ABRAN MANZO [facility] [address] [facility] [address] [place] [address] 11/30/2024 Ekaterina Escobar [facility] [address] [address] 12/16/2024 Ekaterina Escobar [facility] [place] [address] [facility] [address] [place] [address] 12/17/2024 Ekaterina Escobar [facility] [address] [place] [address] 03/01/2025 Ekaterina Escobar Assessments Encounter Date Diagnosis [...] Including wearing closed toe shoes with supportive mechanical spreader operator, removing rugs from walkways in home, [...] has improved significantly since was admitted to [facility] a couple years ago. 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 22/04 line reinforced. 06/29/2025 - Educated on 2 objectives based on the GRAPPLE CREW LEADER/RN Care Plan - Caregiver/Ronak r voiced understanding [...] of JACQU[place]INE [address] [place] [address] [id number] Reema Dalton Self - patient is the insured Medicaid of [place] [address] [place] [phone] [id number] Reema Dalton Self - patient is the [...]
--- OUTSIDE RECORDS SUMMARY | 2025-09-01 16:21 | XMS_ITS | Clinical Summary ---
Author Organization [facility] Address [address] [place] [address] Care Team Providers Care Bag Loader Machine Operator Name Role Phone Dina Wall Primary Care Provider [phone] Medications No known medications Social History Tobacco [...] (Zostavax) Discontinued Insurance [employer] FFS Care Teams Bag Loader Machine Operator Relationship Specialty Start Date End Date Dina Wall [facility] [address] [place] [phone] PCP - General Internal Medicine 12/18/12
== END 2025-09-01 13:45 | disposition home or self-care (01) ==
LOC: HO.NEURO 13:44
PROVIDERS: PCP Nurse Practitioner Family; Visit Provider Registered Nurse
DX: R20.2 Paresthesia of skin (principal); R20.0 Anesthesia of skin
CPT/HCPCS: 95886; 95913

== ENCOUNTER → 2025-09-01 14:04 | Outpatient (BNV) | payer MEDICARE, SELFPAY | PROVIDERS: PCP Nurse Practitioner Family; Visit Provider Psychiatry & Neurology Neurology | DX: R20.0 Anesthesia of skin (principal); G62.89 Other specified polyneuropathies | CPT/HCPCS: 95886; 95913 ==

== ENCOUNTER 2025-09-07 15:36 | Outpatient (AMB) | payer MEDICARE, SELFPAY ==
--- OUTSIDE RECORDS SUMMARY | 2025-02-05 10:32 | XMS_ITS ---
Author Organization - [facility] Address [address] [place] [address] Care Team Providers Care Service Car Operator Name Role Phone Ekaterina Escobar Unavailable [phone] REASON FOR VISIT *Care Plan Update Encounters Encounter Location Date Provider Diagnosis - [facility] [address] [facility] [address] [place] [address] 02/05/2025 Ekaterina Escobar Plan Of Treatment No Information Progress Notes * Alejandro IBARRAOneilB:1950 (75 yo F)Acc No.[id number]:02/05/2025 Care Plan Update Patient: Reema ROJO Provider: Teresa Escobar NP :1950 A ge:74 Y S ex:Female Date:02/05/2025 Address:[address] [facility] , [facility] Subjective: * Chief Complaints: * 1 . *Care Plan Update. * Medical History: Objective: * Vitals: Assessment: Plan: * Treatment: Care Plan: * Problems: * Billing Information: Care Plan Details* * Electronic signature of Leia Escobar NP on 09/07/2025 at 10:20 PM EST Sign off status: Pending * Provider: Teresa Escobar NP Date: 0 02/05/2025 Generated for Rashawni ng/Debbie/eTransmitting on: 1 11/08/2024 10:20 PM EST
--- NOTE | 2025-09-07 15:39 | MHC.OFFVIS ---
Intake Visit Reasons: EMG results Allergies adhesive Allergy (Severe, Verified 08/24/25 15:00) Hives, bleeding ondansetron (From ZOFRAN ( HYDROCHLORIDE)) Allergy (Severe, Verified 08/24/25 15:00) ANAPHYLAXIS HPI Comments Details: She is presenting for a follow-up visit to discuss recent test results and her complaints of feeling off balance. She reports feeling physically and spatially off balance all the time. She denies cognitive issues but reports her short-term memory is worsening and acknowledges a slight personality change. The patient was initially referred by her public relations studies director for unexplained symptoms, including stomach issues and breathing difficulties. She has also experienced worsening urinary incontinence. She reports long-standing numbness in her arm and confirms that recent testing revealed significant neuropathy. She also notes that her hands have become much weaker. She has noticed a progression in her symptoms over the past year and a half. The patient describes episodes where she suddenly feels like she does not know where she is spatially, forcing her to hold onto something. These episodes can last from a couple of seconds to half an hour and are sometimes accompanied by worsening breathing, particularly if she walks too fast. For medication history, she was previously prescribed sertraline but did not take it. She has clonazepam, which she takes occasionally for nervousness, but stopped taking it regularly because she felt it affected her more negatively than positively. [facility] Medical History History of paresthesia Anxiety Migraine Iliotibial band syndrome of right side Pulmonary nodule Gastric dysplasia Osteoarthritis of left knee Osteoarthritis Elevated alkaline phosphatase level Osteoarthritis of right knee Right rotator cuff tear History of kidney disease Multiple adenomatous polyps Upper respiratory infection Spleen anomaly Dizziness SOB (shortness of breath) Vestibular disequilibrium Pre-op examination Preoperative cardiovascular examination Bilateral knee pain Postmenopausal Breast cancer Fracture of femoral neck, left Preoperative clearance Early satiety Nausea Right shoulder pain Nausea and vomiting History of breast cancer Skin lesions Screening for lipid disorders Irritable bowel syndrome with constipation Screening for colon cancer Physical exam History of sepsis CKD (chronic kidney disease) CLYDE (obstructive sleep apnea) Clostridium difficile infection Lupus Glaucoma Sleep apnea Hypothyroidism Closed fracture of neck of left femur Fibromyalgia Surgical History History of total right knee replacement (TKR) History of total right knee replacement (08/2024) H/O shoulder surgery Hx of tonsillectomy History of hip surgery History of esophagogastroduodenoscopy (EGD) (05/14/25) H/O colonoscopy History of cholecystectomy Family History Father Heart attack Clogged artery (heart) COPD (chronic obstructive pulmonary disease) Mother Stroke Clogged artery (heart) Sister COPD (chronic obstructive pulmonary disease) Brother COPD (chronic obstructive pulmonary disease) Social History Household Members: None Housing: Apartment Housing Other:: fpc Are you a primary summer child caregiver to a significant other at home: No Do you presently have visiting nurse or other home services: No Patient Tobacco Use Status: Never used Tobacco e-Cigarette/Vaping Use: Never Used Second Hand Smoke Exposure: No service: No Current occupational status: retired Gender identity: Female Cognitive needs: No Hearing needs: No Vision needs: No Review of Systems Narrative - Constitutional: Reports feeling physically off . - Neurological: Reports feeling off-balance and having spatial disorientation. - Reports worsening short-term memory but feels her memory is otherwise okay for her age. - Reports long-standing arm numbness, weaker hands, and episodes of feeling spatially lost for seconds to half an hour. - Denies feeling confused. - Psychiatric: Reports a slight personality change. - Reports occasional nervousness, for which she takes clonazepam as needed. - Genitourinary: Reports worsening urinary incontinence. - Respiratory: Reports worsening dyspnea, particularly when walking fast, which can trigger episodes of spatial disorientation. - Gastrointestinal: Reports unexplained stomach issues, as evaluated by her public relations studies director. Physical Exam Neuro Other: Mental Status: Alert and oriented to person, place, and time. Normal attention. Normal spontaneous speech, fluency, and comprehension. Cranial Nerves: CN II: Visual estes full to confrontation, visual acuity intact. CN III, IV, : Pupils equal, round, reactive to light and accommodation. Extraocular movements are normal. CN V: Facial sensation is normal. CN VII: Facial movements symmetrical. CN VIII: Hearing intact to bedside conversation is normal. CN IX, X: Palate elevates symmetrically. CN XI: Shoulder shrug and head turn symmetrical. CN XII: Tongue midline without atrophy or fasciculations. Extrapyramidal: Full facial expressions and blinking. No rigidity. Movements are appropriate with no tremor or abnormality. Speech: Normal; no dysarthria or tremor. Results Reviewed Results Reviewed: Laboratory Tests 08/02/25 14:12 ESR 12 C-Reactive Protein 0.36 Assessment & Plan Assessment & Plan (1) Migraine: Code(s): G43.909 - Migraine, unspecified, not intractable, without status migrainosus Category: Medical Qualifiers: Intractability: not intractable Migraine type: unspecified Status migrainosus presence: without status migrainosus Qualified Code(s): G43.909 - Migraine, unspecified, not intractable, without status migrainosus (2) Multifactorial dementia: Comment: [place] brain [place] [facility] [place] 20[place]: Mod eovpfz-owqeyke-egeeobig atrophy, mild to mod MVD Code(s): F03.90 - Unspecified dementia, unspecified severity, without behavioral disturbance, psychotic disturbance, mood disturbance, and anxiety Category: Medical (3) Peripheral neuropathy: Comment: EMG/NCS left arm and leg at [facility] in Aug 2025: Mod axonal SM PN Code(s): G62.9 - Polyneuropathy, unspecified Category: Medical Qualifiers: Peripheral neuropathy type: polyneuropathy, other Qualified Code(s): G62.89 - Other specified polyneuropathies (4) Multifactorial gait disorder: Code(s): R26.89 - Other abnormalities of gait and mobility Category: Medical Plan Impression: a: Multifactorial (degenerative + vascular dementia), mild b: Multifactroial gait disorder c: Peripheral neuropathy d: Possible seizure disorder Rec: a: Walking stick b: EEG c: Education about her condition d: Sertraline 25mg one a day I discussed the results of the patient's recent brain MRI and nerve conduction studies with her and her son. I explained that the nerve studies revealed a significant peripheral neuropathy, which accounts for her unsteadiness and clumsiness. I informed them that the brain MRI showed changes consistent with Alzheimer's disease, including cerebral atrophy that is more advanced than expected for her age, particularly in areas governing spatial orientation. I clarified that this is the cause of her spatial difficulties and short-term memory loss, and I reassured them that it is a very slow-moving condition. We discussed her episodes of disorientation, and I raised the possibility of a related seizure disorder, recommending an EEG for further evaluation. Regarding management, I advised against regular use of clonazepam due to its negative cognitive effects and recommended she start sertraline for anxiety, which she agreed to try. To address the significant fall risk, I strongly recommended using an ambulatory aid. The patient preferred walking sticks, and we agreed to arrange these for her safety. I advised that a follow-up appointment would be scheduled after the EEG. Orders: Orders EEG Routine Today G40.909 - Epilepsy, unspecified, not intractable, without status epilepticus Coding Level of Care Code Est Pt Level 4 (27699) Diagnoses Migraine without status migrainosus, not intractable, unspecified migraine type G43.909 Intractability: not intractable Migraine type: unspecified Status migrainosus presence: without status migrainosus Multifactorial dementia F03.90 Other polyneuropathy G62.89 Peripheral neuropathy type: polyneuropathy, other Multifactorial gait disorder R26.89
--- OUTSIDE RECORDS SUMMARY | 2025-09-07 22:20 | XMS_ITS | Clinical Summary ---
Author Organization [facility] Address [address] [place] [address] Care Team Providers Care Trimming Caser Name Role Phone Dina Wall Primary Care Provider [phone] Medications No known medications Social History Tobacco [...] (Zostavax) Discontinued Insurance [employer] FFS Care Teams Trimming Caser Relationship Specialty Start Date End Date Dina Wall [facility] [address] [place] [phone] PCP - General Internal Medicine 12/18/12
--- OUTSIDE RECORDS SUMMARY | 2025-09-07 22:20 | XMS_ITS | Patient Health Record ---
Author Organization - [facility] Address [address] [place] [address] Care Team Providers Care Commission Associate Name Role Phone Ekaterina Escobar Unavailable [phone] ABRAN MANZO Unavailable [phone] GEMINI VASQUEZ Unavailable [phone] Allergies Allergen (clinical drug ingredient) Drug/Non Drug [...] Notes Problem Obesity due to excess calories (060421522) Other obesity due to excess calories (E66.09) Active confirmed Problem Primary insomnia (6012090) Primary insomnia (F51.01) Active confirmed Problem Age-related osteoporosis (469785739) Age-related osteoporosis without current pathological fracture (M81.0) Active confirmed Problem Incontinence of feces (51026578) Full incontinence of feces (R15.9) Active confirmed Problem Body mass index 30.00 to 34.99 (926980027877026) Body mass index [BMI] 34.0-34.9, adult (Z68.34) Active confirmed Problem Constipation (24603865) Constipation, unspecified constipation type (K59.00) Active confirmed Problem History of fall (659917681) History of fall (Z91.81) Active confirmed Problem Anxiety (44689539) Anxiety (F41.9) Active confi rmed Problem Gastroesophageal reflux disease without esophagitis (628630578) Gastroesophageal reflux disease without esophagitis (K21.9) Active confirmed Problem Inflammatory and toxic neuropathy (257672936) Peripheral polyneuropathy (G62.9) Active confirmed Problem Dizziness (694181739) Dizziness (R42) Active confirmed Problem Acquired hypothyroidism (910876055) Acquired hypothyroidism (E03.9) Active confirmed Problem Overactive urinary bladder (disorder) (586627199) OAB (overactive bladder) (N32.81) Active confirmed Problem Mild recurrent major depression (50005822) Mild episode of recurrent major depressive disorder (F33.0) Active confirmed Problem Mixed incontinence (213412912) Mixed stress and urge urinary incontinence (N39.46) Active confirmed Problem Mild intermittent asthma (107261271) Mild intermittent asthma without complication (J45.20) Active confirmed Problem Hypoparathyroidism (25726343) Hypoparathyroidism, unspecified hypoparathyroidism type (E20.9) Active confirmed Problem Dyslipidemia (920281149) Dyslipidemia (E78.5) Active confirmed Problem Lakhani's esophagus (921227317) 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 confirmed Problem Primary osteoarthritis (957089356) Primary osteoarthritis involving multiple joints (M15.0) Active confirmed Problem History of musculoskeletal disease (991748926) History of rotator cuff tear (Z87.39) Active [...] Encounters Encounter Location Date Provider Diagnosis - [facility] [address] [address] 11/26/2024 GEMINI VASQUEZ Other obesity due to [...] of recurrent major depressive disorder F33.0 - [facility] [address] [facility] [address] [place] [address] 11/27/2024 GEMINI VASQUEZ [facility] [address] [facility] [address] [place] [phone] 02/19/2025 Ekaterina Escobar [facility] [address] [address] [place] [phone] 03/31/2025 GEMINI VASQUEZ [facility] [address] [address] [place] [phone] 06/29/2025 ABRAN MAN[address] [facility] [address] [facility] [address] [place] [address] 11/30/2024 Ekaterina Escobar [facility] [address] [address] 12/16/2024 Ekaterina Escobar [facility] [place] [id number] [facility] [address] [place] [address] 12/17/2024 Ekaterina Escobar [facility] [address] [place] [address] 03/01/2025 Ekaterina Escobar Assessments Encounter Date Diagnosis [...] Including wearing closed toe shoes with supportive supervisor gluing, removing rugs from walkways in home, turning [...] has improved significantly since was admitted to retirement a couple years ago. 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 22/04 line reinforced. 06/29/2025 - Educated on 2 objectives based on the PRECISION LENS TECHNICIAN/RN Care Plan - Caregiver/Ronak r voiced understanding [...] of [employer] [address] [place] [phone] [id number] Reema Dalton Self - patient is the insured Medicaid of [place] [address] [place] [address] [id number] Reema Dalton Self - patient is the [...]
== END 2025-09-07 16:15 | disposition home or self-care (01) ==
LOC: HO.HSM 15:37
PROVIDERS: PCP Nurse Practitioner Family; Visit Provider Psychiatry & Neurology Neurology
DX: G43.909 Migraine, unspecified, not intractable, without status migrainosus (principal); F03.90 Unspecified dementia, unspecified severity, without behavioral disturbance, psychotic disturbance, mood disturbance, and anxiety; G62.89 Other specified polyneuropathies; R26.89 Other abnormalities of gait and mobility
CPT/HCPCS: 99214

== ENCOUNTER → 2025-09-07 15:36 | Outpatient (BNVA) | payer MEDICARE, SELFPAY | PROVIDERS: PCP Nurse Practitioner Family; Visit Provider Psychiatry & Neurology Neurology | DX: R26.89 Other abnormalities of gait and mobility (principal); G62.89 Other specified polyneuropathies; F03.90 Unspecified dementia, unspecified severity, without behavioral disturbance, psychotic disturbance, mood disturbance, and anxiety; G43.909 Migraine, unspecified, not intractable, without status migrainosus | CPT/HCPCS: 99212 ==